=== PATIENT | female | born 1940 | race Caucasian/White ===

== ENCOUNTER 2019-08-19 13:09 | Emergency (ER) | payer MEDICARE ==
[~2019-08-19] VITALS: Ht 154.9 cm; Wt 65.0 kg
[2019-08-19] MEDS ORDERED: TETANUS,DIPTH,PERTUSS P/F (BOOSTRIX) 0.5 ML VIAL IM ONE ×2 (13:30→14:15)
[2019-08-19] MEDS ORDERED: ACETAMINOPHEN 500 MG TAB (TYLENOL) PO ONE (13:30)
--- NOTE | 2019-08-19 13:30 | ED General ---
General Chief Complaint: Trauma-Non Activation Stated Complaint: FALL History of Present Illness Date Seen by Provider: August 19, 2019 Time Seen by Provider: 13:26 Initial Comments Patient presenting to emergency department for evaluation of head trauma after she stubbed her toe in [employer] and fell straight forward landing on her face. She has a contusion to her left forehead region and there was bleeding from the wound however it has now stopped. She says she has a mild headache but denies any neck chest abdomen back or other extremity trauma or pain. On exam it does appear she has a small abrasion to her left knee but she is moving the joint with no difficulty. She says she takes a aspirin daily and bruises easily. She says she is allergic to the tetanus vaccine. Allergies and Home Medications Allergies Coded Allergies: allopurinol (Unverified Allergy, Unknown, 12/14/13) Uncoded Allergies: HORSE SERUM (Allergy, Unknown, 12/14/13) Patient Home Medication List Home Medication List Reviewed: Yes Review of Systems Review of Systems Constitutional: no symptoms reported EENTM: no symptoms reported Respiratory: no symptoms reported Cardiovascular: no symptoms reported Gastrointestinal: no symptoms reported Musculoskeletal: no symptoms reported Skin: other (bruise) Psychiatric/Neurological: Headache All Other Systems Reviewed Negative Unless Noted: Yes Physical Exam Vital Signs Capillary Refill : Height, Weight, BMI Height: 5'2.00" Weight: 150lbs. oz. [id number]; BMI Method: General Appearance: No Apparent Distress, WD/WN HEENT: PERRL/EOMI Neck: Full Range of Motion, Normal Inspection, Non Tender, Supple Respiratory: Lungs Clear, No Respiratory Distress Cardiovascular: Regular Rate, Rhythm Gastrointestinal: Non Tender, Soft Back: Normal Inspection, No CVA Tenderness, No Vertebral Tenderness Extremity: Normal Capillary Refill, Normal Inspection, Normal Range of Motion, Non Tender Neurologic/Psychiatric: Alert, Oriented x3 Skin: Ecchymosis (to L forehead and periorbital region. No open wounds) Progress/Results/Core Measures Suspected Sepsis SIRS Temperature: Pulse: Respiratory Rate: Blood Pressure / Mean: Results/Orders My Orders Orders - FRANCISCO SOARES DO Ct Head Wo (08/19/19 13:16) Acetaminophen Tablet (Tylenol Tablet) (08/19/19 13:30) Foot 3 View Right (08/19/19 13:41) Ankle 3 View Right (08/19/19 13:42) Dipht,Pertuss(Acell),Tet Adult (Boostrix (08/19/19 14:15) Medications Given in ED Current Medications Medications Dose Ordered Sig/Mario Route Start Time Stop Time Status Last Admin Dose Admin Acetaminophen 1,000 mg ONCE ONCE PO 08/19/19 13:30 08/19/19 13:31 DC 08/19/19 13:40 1,000 MG Vital Signs/I&O Capillary Refill : Progress Note : Progress Note Patient appears well and has normal vital signs and may have had a small puncture wound to her left forehead. I will go ahead and put some glue on the area that was bleeding just to make sure does not start bleeding again. Patient's head CT negative and her repeat neurologic exam is normal so she'll be discharged in stable condition with instructions to take Tylenol for pain. When she was told to follow primary care provider within 2-3 days to ensure improvement and come back to the ED sooner with worsening pain neurologic changes other general concerns. Patient aware and agreeable with plan and verbalized understanding of the above instructions. Have not when patient stood up she said she had pain in her right fifth metatarsal region. I did get some x-rays and she has a nondisplaced fifth metata rsal fracture so she was put in a cam boot and will be instructed to follow with orthopedic surgery. Patient verbalized understanding. Patient said that she is not allergic to tetanus and is requesting a tetanus so we did provided to her. Departure Impression Primary Impression: Abrasion Additional Impressions: CHI (closed head injury) Fracture of 5th metatarsal Disposition: 01 HOME, SELF-CARE Condition: Stable Departure-Patient Inst. Referrals: NO,LOCAL PHYSICIAN (PCP/Family) Primary Care Physician Patient Instructions: Foot Fracture (DC), Minor Head Injury (DC) Scripts Ondansetron (Ondansetron Odt) 4 Mg Tab.rapdis 4 MG PO TID PRN for NAUSEA/VOMITING-1ST LINE, #10 TAB Prov: FRANCISCO SOARES DO 08/19/19 Hydrocodone/Acetaminophen (Hydrocodone-Acetamin 5-325 mg) 1 Each Tablet 1 EACH PO qhs PRN for PAIN-SEVERE (8-10), #10 TAB Prov: FRANCISCO SOARES DO 08/19/19 FRANCISCO SOARES DO August 19, 2019 13:30
--- NOTE | 2019-08-19 13:41 | Diagnostic Imaging Report ---
PROCEDURE: CT head without contrast. TECHNIQUE: Multiple contiguous axial images were obtained through the brain without the use of intravenous contrast. Auto Exposure Controls were utilized during the CT exam to meet ALARA standards for radiation dose reduction. INDICATION: Fall with head injury. COMPARISON: None. FINDINGS: The ventricles and cortical sulci are prominent. There is no midline shift or mass effect identified. No acute intracranial hemorrhage is seen. Areas of decreased attenuation are seen in the subcortical and periventricular white matter. These likely represent chronic microvascular disease. No CT evidence of acute territorial ischemia is seen. There is a left frontal scalp hematoma measuring approximately 3 cm transverse. The calvarium is intact. The paranasal sinuses appear clear. IMPRESSION: 1. Small left frontal scalp hematoma. No calvarium fracture or acute intracranial hemorrhage. Dictated by: Dictated on workstation # [id number]
--- NOTE | 2019-08-19 14:00 | Diagnostic Imaging Report ---
INDICATION: Fall with right ankle pain. AP, oblique, and lateral views of the right ankle are obtained. There is degenerative change of the ankle joint both medially and laterally. There is a fracture of the base of the fifth metatarsal without displacement. No other acute finding is seen. IMPRESSION: Degenerative findings of the right ankle. Nondisplaced fracture of the base of the fifth metatarsal, see right foot dictation. Dictated by: Dictated on workstation # [id number]
--- NOTE | 2019-08-19 14:01 | Diagnostic Imaging Report ---
INDICATION: Fall with right foot pain. EXAMINATION: AP, oblique, and lateral views of the right foot are obtained. FINDINGS: There is ill-defined lucency at base of fifth metatarsal suspicious for nondisplaced fracture. Remaining bony structures are intact. Joint spaces are unremarkable. IMPRESSION: Findings suspicious for nondisplaced fracture of the base of the fifth metatarsal. Correlate for point tenderness in this area. There is no other acute finding. Dictated by: Dictated on workstation # [id number]
[2019-08-19] MEDS ORDERED: HYDR-83 PO (14:20)
[2019-08-19] MEDS ORDERED: ONDA4TAB11 PO (14:20)
[2019-08-19 14:45] VITALS: BP 134/61
--- OUTSIDE RECORDS SUMMARY | 2019-08-19 15:58 | XMS REPORT ---
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 No Information No Information No Information No Information No Information No Information Medications Medication Ingredient Drug Dose Dates Status Sig Sig Care Class(es) (Normalized) (Original) Provid er dicyclomine Dicyclomine Anticholine 20 mg 06-25-19 Active take 1 Dicyclomine no hydrochlori Translation rgic 18 tablet by HCl 20 MG n marci de 20 mg s: [ mouth four Orally 4 oral tablet Dicyclomine times daily times a day (1 source.) HCl 20 MG] 1 tablet 6h May, 30 days Active Problems Active Problems Problem Normalized Date Last Normalized Normalized Provider Fa cility Classification Problem(s) Recorded Problem Problem Sta tus Duration Thyroid Acquired Chronic Active [facility] Community disorders (8 hypothyroidism 18137 [facility] sources[facility] Translations: of [place] [ Acquired [place] ([address]015) hypothyroidism , - Acquired hypothyroidism E03.9] Spondylosis; Acute back Episodic Active [employer] Commu nity intervertebral pain with [address] [facility] disc sciatica of [facility] disorders; Translations: [place] (32658) other back [ Acute problems (11 left-sided low sources.) back pain with left-sided sciatica, Sciatica of right side, - Acute left-sided low back pain with left-sided sciatica M54.42, - Sciatica of right side M54.31, - Spinal 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] Other and Benign Episodic Active MODESTA SELF [place] [address] (Other Health Center benign colon, Phone: of [facility] neoplasm (1 unspecified ) [place] (39173) source.) Translations: [ - Tubular adenoma of colon D12.6] Chronic kidney Chronic kidney Chronic Active MODESTA SELF Community disease (5 disease stage 62992 [facility] Center sources.) 4 of [facility] Translations: [place] (99876) [ CKD (chronic kidney disease) stage 4, GFR 15-29 ml/min, - CKD (chronic kidney disease) stage 4, GFR 15-29 ml/min N18.4] Other diseases Disorder of Episodic Active MODESTA SELF Co mmunity of kidney and kidney and [facility] (Other Health Center ureters (1 ureter, Phone: of [facility] source.) unspecified ) [place] (55539) Translations: [ - Renal insufficiency N28.9] Other lower Dyspnea, Episodic Active MODESTA SELF Communit y respiratory unspecified [facility] (Other Health Center disease (1 Translations: Phone: of [facility] source.) [ - Nocturnal ) [place] (03821 ) dyspnea R06.00] Immunizations Encounter for Episodic Active MODESTA SELF C ommunity and screening immunization [address] [place] [address] for infectious Translations: of [facility] disease (2 [ - Encounter [place] (65924) sources.) for immunization Z23] Other Encounter for Episodic Active MODESTA SELF Commu nity screening for screening [address] [place] [address] suspected mammogram for of [facility] conditions malignant [place] (33689) (not mental neoplasm of disorders or breast infectious Translations: disease) (2 [ - Screening sources.) mammogram, encounter for Z12.31] Esophageal Gastro-esophag Chronic Active MODESTA SELF Com munity disorders (3 eal reflux 57252 [facility] sources.) disease with of [facility] esophagitis [place] (66223) Translations: [ Gastroesophage al reflux disease with esophagitis, - Gastroesophage al reflux disease with esophagitis K21.0] Gastritis and Gastroduodenit Episodic Active MODESTA SELF Community duodenitis (3 is [address]509 Health Center sources.) Translations: [place] [ Gastritis [place] (20108) and duodenitis, - Gastritis and duodenitis K29.90] Abdominal Hiatal hernia Episodic Active MODESTA SELF Commu nity hernia (3 Translations: [facility]59 [facility] sources.) [ Hiatal of [facility] hernia, - [place] (36172) Hiatal hernia K44.9] Diabetes Hyperglycemia Episodic Active MODESTA SELF Commu nity mellitus Translations: [id number] [place] [address] without [ of [facility] complication Hyperglycemia, [place] (32441) (17 sources.) - Hyperglycemia R73.9, - Hyperglycemia, unspecified R73.9, - Prediabetes R73.03] Essential Hypertensive Chronic Active [facility] SELF Commun ity hypertension disorder [address] [place] [address] (7 sources.) Translations: of [facility] [ [place] (34275) Hypertension, Essential hypertension, - Essential hypertension I10, - Hypertension I10] Deficiency and Iron Episodic Active MODESTA SELF Commu nity other anemia deficiency [address] [place] [address] (7 sources.) anemia, of [facility] unspecified [place] (75742) Translations: [ - Iron deficiency anemia D50.9] Disorders of Mixed Chronic Active MODESTA SELF Communi ty lipid hyperlipidemia [address] [place] [address] metabolism (13 Translations: of [facility] sources.) [ Mixed [place] (44941) hyperlipidemia , - Mixed hyperlipidemia E78.2] Other Morbid Chronic Active MODESTA SELF Community nutritional; (severe) 35089 (Other Health Center endocrine; and obesity due to Phone: of [facility] metabolic excess ) [place] (44701) disorders (1 calories source.) Translations: [ - Morbid obesity E66.01] Other Morbid obesity Chronic Active MODESTA SELF Comm unity nutritional; Translations: [address] [place] [address] endocrine; and [ Morbid of [facility] metabolic obesity] [place] (14246) disorders (2 sources.) Osteoarthritis Osteoarthritis Chronic Active MODESTA SELF Community (3 sources.) Translations: [address] [place] [address] [ DA of [facility] (degenerative [place] (69252) arthritis), - DA (degenerative arthritis) M19.90] Other Pain in right Episodic Active MODESTA SELF Commu nity non-traumatic hip [address] [place] [address] Center joint Translations: of [facility] disorders (2 [ - Right hip [place] (77128) sources.) pain M25.551] Nutritional Vitamin D Chronic Active MODESTA SELF Communi ty deficiencies deficiency [address] [place] [address] (7 sources.) Translations: of [facility] [ Vitamin D [place] (03921) deficiency, - Vitamin D deficiency, unspecified E55.9, - Vitamin D deficiency E55.9] Past or Other Problems Problem Normalized Date Last Normalized Normalized Provider Fa cility Classification Problem(s) Recorded Problem Problem Sta tus Duration Deficiency and Iron Episodic [facility] n[facility] other anemia deficiency [address] [place] [address] (2 sources.) anemia of [facility] Translations: [place] (88909) [ Iron deficiency anemia] Other nervous Neurogenic Episodic Completed MODESTA SELF Comm tyndall system claudication [address] [place] [address] disorders (2 Translations: of [facility] sources.) [ Spinal [place] (83276) stenosis of lumbar region with neurogenic claudication] Other lower Nocturnal Episodic Completed MODESTA SELF Communi ty respiratory dyspnea [address] [place] [address] disease (2 Translations: of [facility] sources.) [ Nocturnal [place] (88332) dyspnea] Other diseases Renal Episodic Com[facility] of kidney and insufficiency [address] [place] [address] ureters (2 Translations: of [facility] sources.) [ Renal [place] (83575) insufficiency] Other and Tubular Episodic Completed [facility] unspecified adenoma of [address] [place] [address] benign colon of [facility] neoplasm (2 Translations: [place] (12175) sources.) [ Tubular adenoma of colon] Procedures Procedure Normalized Procedure Procedure Result Performer Facility Date 07-01-2018 Collection venous no information no name [facility] blood venipuncture [facility] (34882) 07-01-2018 Hemoglobin no information no name [facility] ealth glycosylated a1c [facility] (82492) 07-01-2018 LAB NOT BILLED BY no information no name [facility] (51202) 02-06-2019 Mammography no information [facility] (73713) Immunizations Normalized Immunization Date Notes Care Provider Facili ty Immunization influenza, seasonal, 01-22-2019 no information no name [facility] injectable [facility] (46226) pneumococcal 04-12-2015 no information no name [facility] conjugate vaccine, [address] ([address]) pneumococcal 06-21-2016 no information no name [facility] polysaccharide [facility], [facility] SOLUMEDROL (UP TO 10-07-2018 no information no name [facility] 125 MG) [facility] (03925) tetanus toxoid, 08-19-2019 no information no name [facility] toxoid, and (57894) acellular pertussis vaccine, adsorbed Results Test Name Value Interpretation Reference Range Date Time Fa cility (Normalized) (Normalized) (Medline Reference) laboratory on 2019-07-21 Albumin 4.3 g/dL (N) 3.4 - 5.4 g/dL [facility] [Mass/Vol] [facility] (86359) Albumin/Globulin 1.7 {ratio} (N) 1 - 2.5 {ratio} [facility] [Mass ratio] [facility] (86739) ALP [Catalytic 52 U/L (N) 44 - 147 U/L [facility] Health activity/Vol] [facility] (64094) ALT [Catalytic 21 U/L (N) 4 - 40 U/L Community ealth activity/Vol] [facility] (10130) AST [Catalytic 18 U/L (N) 10 - 34 U/L [facility] Health activity/Vol] [facility] (39395) Basophils (Bld) 0.052 10*3/uL (N) 0 - 0.3 10*3/uL [facility] Health [#/Vol] [facility] (80059) Basophils/100 0.9 % (N) 0.5 - 1 % Community alth WBC (Bld) [facility] (23876) Bilirubin 0.4 mg/dL (N) 0.1 - 1.2 mg/dL [facility] Health [Mass/Vol] [facility] (45097) Calcium 9.5 mg/dL (N) 8.5 - 10.2 mg/dL [facility] [Mass/Vol] [facility] (21222) Chloride 108 mmol/L (N) 95 - 106 mmol/L [facility] [Moles/Vol] [facility] (84837) CO2 [Moles/Vol] 23 mmol/L (N) 23 - 29 mmol/L [facility] (46387) Creatinine 1.65 mg/dL (H) [facility] h [Mass/Vol] [facility] (91021) Eosinophils 0.11 10*3/uL (N) 0.05 - 0.5 [facility] lth (Bld) [#/Vol] 10*3/uL [facility] (50533) Eosinophils/100 1.9 % (N) 1 - 4 % [facility] WBC (Bld) [facility] (65133) Erythrocyte 13.5 % (N) 11.6 - 14.6 % [facility] ealth distribution [facility] width (RBC) [facility] [Ratio] (28733) Free T4 1.4 ng/dL (N) 0.9 - 2.2 ng/dL [facility] [Mass/Vol] [facility] (19318) GFR/1.73 sq M 34 (L) 90 - 120 On license of [facility] predicted among mL/min/{1.73_m2} mL/min/{1.73_m2} [facility] f [facility] blacks MDRD [facility] (S/P/Bld) [Vol (88181) rate/Area] GFR/1.73 sq 29 (L) 90 - 120 [facility] th M.predicted MDRD mL/min/{1.73_m2} mL/min/{1.73_m2} [facility] (S/P/Bld) [Vol [facility] rate/Area] (92591) Globulin (S) 2.5 g/dL (N) 2 - 3.5 g/dL [facility] ealt [Mass/Vol] [facility] (04595) Glucose 110 mg/dL (H) 60 - 125 mg/dL [facility] [Mass/Vol] [facility] (88875) Hematocrit (Bld) 47.6 % (H) 36.1 - 50.3 % [facility] [Volume [facility]] [facility] (33448) Hemoglobin (Bld) 15.4 g/dL (N) 12.1 - 17.2 g/dL [facility] [Mass/Vol] [facility] (27403) Lymphocytes 1.38 10*3/uL (N) 0.9 - 2.9 [facility] lth (Bld) [#/Vol] 10*3/uL [facility] (96508) Lymphocytes/100 23.8 % (N) 20 - 40 % [facility] WBC (Bld) [facility] (25298) MCH (RBC) 30.9 pg (N) 27 - 31 pg [facility] [Entitic mass] [facility] (17930) MCHC (RBC) 32.4 g/dL (N) 32 - 36 g/dL [facility] He [facility] [Mass/Vol] [facility] (86651) MCV (RBC) 95.4 fL (N) 80 - 100 fL [facility] lt [Entitic vol] [facility] (68040) Monocytes (Bld) 0.615 10*3/uL (N) 0.3 - 0.9 [facility] [#/Vol] 10*3/uL [facility] (57280) Monocytes/100 10.6 % (N) 2 - 8 % On license of [facility] WBC (Bld) [facility] (16614) Neutrophils 3.642 10*3/uL (N) 1.7 - 7 10*3/uL [facility] (Bld) [#/Vol] [facility] (01764) Neutrophils/100 62.8 % (N) 40 - 60 % [facility] WBC (Bld) [facility] (21522) Platelet mean 11.6 fL (N) 7.2 - 11.7 fL [facility] Health volume (Bld) [facility] [Entitic vol] [facility] (32298) Platelets (Bld) 212 10*3/uL (N) 150 - 450 [facility] Health [#/Vol] 10*3/uL [facility] (49008) Potassium 3.7 mmol/L (N) 3.7 - 5.2 mmol/L [facility] [Moles/Vol] [facility] (28946) Protein 6.8 g/dL (N) 6.4 - 8.3 g/dL [facility] Health [Mass/Vol] [facility] () RBC (Bld) 4.99 10*6/uL (N) 4.2 - 6.1 Community Hea lth [#/Vol] 10*6/uL [facility] () Sodium 144 mmol/L (N) 135 - 145 mmol/L [facility] [Moles/Vol] [facility] () TSH Qn 4.55 m[IU]/L (H) 0.4 - 4 m[IU]/L [facility] () Urea nitrogen 26 mg/dL (H) 7 - 20 mg/dL [facility] [Mass/Vol] [facility] () Urea 16 mg/mg (N) 6 - 22 mg/mg [facility] He alth nitrogen/Creatin [facility] [Mass ratio] [facility] () WBC (Bld) 5.8 10*3/uL (N) 3.5 - 10.5 [facility] Heal th [#/Vol] 10*3/uL [facility] () laboratory on 2019-01-19 Albumin 4.3 g/dL (N) 3.4 - 5.4 g/dL [facility] [Mass/Vol] [facility] () Albumin/Globulin 1.7 {ratio} (N) 1 - 2.5 {ratio} [facility] [Mass ratio] [facility] () ALP [Catalytic 49 U/L (N) 44 - 147 U/L [facility] Health activity/Vol] [facility] () ALT [Catalytic 22 U/L (N) 4 - 40 U/L Community ealth activity/Vol] [facility] () AST [Catalytic 21 U/L (N) 10 - 34 U/L [facility] Health activity/Vol] [facility] () Basophils (Bld) 0.051 10*3/uL (N) 0 - 0.3 10*3/uL [facility] [#/Vol] [facility] (10673) Basophils/100 1.1 % (N) 0.5 - 1 % [facility] He alth WBC (Bld) [facility] (20807) Bilirubin 0.5 mg/dL (N) 0.1 - 1.2 mg/dL [facility] [Mass/Vol] [facility] (27181) Calcium 9.1 mg/dL (N) 8.5 - 10.2 mg/dL [facility] [Mass/Vol] [facility] (38519) Chloride 109 mmol/L (N) 95 - 106 mmol/L [facility] [Moles/Vol] [facility] (49363) Cholesterol 229 mg/dL (H) 180 - 200 mg/dL [facility] [Mass/Vol] [facility] (95267) Cholesterol in 62 mg/dL (N) [facility] h HDL [Mass/Vol] [facility] (93010) Cholesterol in 143 mg/dL (H) 0 - 100 mg/dL [facility] LDL [Mass/Vol] [facility] (89144) Cholesterol non 167 mg/dL (H) [facility] HDL [Mass/Vol] [facility] (43955) Cholesterol.tota 3.7 {ratio} (N) [facility] Hea lt l/Cholesterol in [facility] HDL [Mass ratio] [facility] (30995) CO2 [Moles/Vol] 21 mmol/L (N) 23 - 29 mmol/L [facility] (17357) Creatinine 1.75 mg/dL (H) [facility] h [Mass/Vol] [facility] (87462) Eosinophils 0.101 10*3/uL (N) 0.05 - 0.5 Community He alth (Bld) [#/Vol] 10*3/uL [facility] (85081) Eosinophils/100 2.2 % (N) 1 - 4 % [facility] WBC (Bld) [facility] (54422) Erythrocyte 13.3 % (N) 11.6 - 14.6 % Community H ealth distribution [facility] width (RBC) [facility] [Ratio] (14853) GFR/1.73 sq M 32 (L) 90 - 120 Community He alth predicted among mL/min/{1.73_m2} mL/min/{1.73_m2} [facility] [place] MDRD [facility] (S/P/Bld) [Vol (73454) rate/Area] GFR/1.73 sq 27 (L) 90 - 120 Community Heal th M.predicted MDRD mL/min/{1.73_m2} mL/min/{1.73_m2} [facility] (S/P/Bld) [Vol [facility] rate/Area] (27971) Globulin (S) 2.6 g/dL (N) 2 - 3.5 g/dL [facility] ealth [Mass/Vol] [facility] (41517) Glucose 98 mg/dL (N) 60 - 125 mg/dL [facility] [Mass/Vol] [facility] (54561) HbA1c (Bld) 5.6 (N) [facility] h [Mass fraction] [facility] (83280) Hematocrit (Bld) 45.8 % (H) 36.1 - 50.3 % [facility] [Volume [place] [facility] fraction] [facility] (01447) Hemoglobin (Bld) 15.3 g/dL (N) 12.1 - 17.2 g/dL [facility] [Mass/Vol] [facility] (99027) Lymphocytes 1.113 10*3/uL (N) 0.9 - 2.9 [facility] alth (Bld) [#/Vol] 10*3/uL [facility] (42744) Lymphocytes/100 24.2 % (N) 20 - 40 % [facility] WBC (Bld) [facility] (35589) MCH (RBC) 31.4 pg (N) 27 - 31 pg [facility] th [Entitic mass] [facility] (90713) MCHC (RBC) 33.4 g/dL (N) 32 - 36 g/dL [facility] He alth [Mass/Vol] [facility] (96711) MCV (RBC) 94.0 fL (N) 80 - 100 fL [facility] l[facility] [Entitic vol] [facility] (23650) Monocytes (Bld) 0.534 10*3/uL (N) 0.3 - 0.9 [facility] Health [#/Vol] 10*3/uL [facility] (24468) Monocytes/100 11.6 % (N) 2 - 8 % Community alth WBC (Bld) [facility] (96296) Neutrophils 2.801 10*3/uL (N) 1.7 - 7 10*3/uL [facility] Health (Bld) [#/Vol] [facility] (89334) Neutrophils/100 60.9 % (N) 40 - 60 % [facility] WBC (Bld) [facility] (67772) Platelet mean 11.2 fL (N) 7.2 - 11.7 fL [facility] volume (Bld) [facility] [Entitic vol] [facility] (81752) Platelets (Bld) 200 10*3/uL (N) 150 - 450 [facility] [#/Vol] 10*3/uL [facility] (99168) Potassium 3.9 mmol/L (N) 3.7 - 5.2 mmol/L [facility] [Moles/Vol] [facility] (30144) Protein 6.9 g/dL (N) 6.4 - 8.3 g/dL [facility] [Mass/Vol] [facility] (25368) RBC (Bld) 4.87 10*6/uL (N) 4.2 - 6.1 [facility] lth [#/Vol] 10*6/uL [facility] (78427) Sodium 143 mmol/L (N) 135 - 145 mmol/L [facility] [Moles/Vol] [facility] (90710) Triglyceride 119 mg/dL (N) 0 - 150 mg/dL [facility] [Mass/Vol] [facility] (40286) Urea nitrogen 28 mg/dL (H) 7 - 20 mg/dL [facility] [Mass/Vol] [facility] (93544) Urea 16 mg/mg (N) 6 - 22 mg/mg Community He alth nitrogen/Creatin [facility] ine [Mass ratio] [facility] (94684) WBC (Bld) 4.6 10*3/uL (N) 3.5 - 10.5 [facility] [#/Vol] 10*3/uL [facility] (92435) thyroid on 2018-07-01 Free T4 1.3 ng/dL (N) 0.9 - 2.2 ng/dL [facility] [Mass/Vol] [facility] (56199) TSH Qn 4.43 m[IU]/L (N) 0.4 - 4 m[IU]/L [facility] (78291) other on 2018-07-01 Albumin/Globulin 1.5 (N) [facility] [Mass ratio] [facility] (49288) Calcidiol 0 ng/mL (no code) 20 - 50 ng/mL [facility] [Mass/Vol] [facility] (13284) Cholesterol in 161 (H) [facility] LDL [Mass/Vol] [facility] (13478) Cholesterol non 185 (H) [facility] HDL [Mass/Vol] [facility] (93112) Cholesterol.tota 3.8 (N) [facility] l/Cholesterol in [facility] HDL [Mass ratio] [facility] (28464) Erythrocyte 13.0 % (N) 11.6 - 14.6 % [facility] ealth distribution [facility] width (RBC) [facility] [Ratio] (31330) GFR/1.73 sq 28 (L) 90 - 120 [facility] M.predicted MDRD mL/min/{1.73_m2} mL/min/{1.73_m2} [facility] (S/P/Bld) [Vol [facility] rate/Area] (84037) Globulin (S) 3.1 (N) [facility] [Mass/Vol] [facility] (41036) Lymphocytes 1750 (N) [facility] (Bld) [#/Vol] [facility] (71817) MCHC (RBC) 33.8 g/dL (N) 32 - 36 g/dL Community He alth [Mass/Vol] [facility] (39985) Platelet mean 11.4 fL (N) 7.2 - 11.7 fL [facility] Health volume (Bld) [facility] [Entitic vol] [facility] (81297) metabolic panel on 2018-07-01 Albumin 4.5 g/dL (N) 3.4 - 5.4 g/dL [facility] Health [Mass/Vol] [facility] (87197) ALP [Catalytic 48 U/L (N) 44 - 147 U/L [facility] Health activity/Vol] [facility] (77175) ALT [Catalytic 22 U/L (N) 4 - 40 U/L Community H ealth activity/Vol] [facility] (63327) AST [Catalytic 26 U/L (N) 10 - 34 U/L [facility] Health activity/Vol] [facility] (42480) Bilirubin 0.4 mg/dL (N) 0.1 - 1.2 mg/dL [facility] [Mass/Vol] [facility] (04757) Calcium 9.5 mg/dL (N) 8.5 - 10.2 mg/dL [facility] [Mass/Vol] [facility] (08652) Chloride 107 mmol/L (N) 95 - 106 mmol/L [facility] [Moles/Vol] [facility] (46665) CO2 [Moles/Vol] 25 mmol/L (N) 23 - 29 mmol/L [facility] ity [facility] ([id number]) Creatinine 1.71 mg/dL (H) [facility] [Mass/Vol] [facility] (26326) GFR/1.73 sq M 33 (L) 90 - 120 [facility] He alth predicted among mL/min/{1.73_m2} mL/min/{1.73_m2} [facility] [place] MDRD [facility] (S/P/Bld) [Vol ([id number]) rate/Area] Glucose 110 mg/dL (H) 60 - 125 mg/dL [facility] [Mass/Vol] [facility] (75212) HbA1c (Bld) 5.7 (H) [facility] [Mass fraction] [facility] (04330) Potassium 4.4 mmol/L (N) 3.7 - 5.2 mmol/L [facility] [Moles/Vol] [facility] (29335) Protein 7.6 g/dL (N) 6.4 - 8.3 g/dL [facility] [Mass/Vol] [facility] (26507) Sodium 141 mmol/L (N) 135 - 145 mmol/L [facility] [Moles/Vol] [facility] (59260) Urea nitrogen 22 mg/dL (N) 7 - 20 mg/dL [facility] [Mass/Vol] [facility] () Urea 13 mg/mg (N) 6 - 22 mg/mg Community [facility] alth nitrogen/Creatin [facility] [Mass ratio] [facility] () laboratory on 2018-07-01 Basophils (Bld) 0.05 10*3/uL (N) 0 - 0.3 10*3/uL [facility] [#/Vol] [facility] (21095) Basophils/100 1.0 % (N) 0.5 - 1 % [facility] WBC (Bld) [facility] (64540) Calcidiol 47 ng/mL (N) 20 - 50 ng/mL [facility] ealth [Mass/Vol] [facility] (35460) Cholesterol in 161 mg/dL (H) 0 - 100 mg/dL [facility] LDL [Mass/Vol] [facility] (67777) Eosinophils 0.155 10*3/uL (N) 0.05 - 0.5 [facility]th (Bld) [#/Vol] 10*3/uL [facility] (69128) Eosinophils/100 3.1 % (N) 1 - 4 % [facility] WBC (Bld) [facility] (57890) Free T4 1.3 ng/dL (N) 0.9 - 2.2 ng/dL [facility] [Mass/Vol] [facility] () Globulin (S) 3.1 g/dL (N) 2 - 3.5 g/dL [facility]alth [Mass/Vol] [facility] (74932) HbA1c (Bld) 5.7 (H) [facility] [Mass fraction] [facility] (62327) Hematocrit (Bld) 46.4 % (H) 36.1 - 50.3 % [facility]] [facility] (90513) Lymphocytes 1.75 10*3/uL (N) 0.9 - 2.9 [facility] Hea lth (Bld) [#/Vol] 10*3/uL [facility] (24866) Lymphocytes/100 35.0 % (N) 20 - 40 % [facility] WBC (Bld) [facility] (19730) Monocytes (Bld) 0.62 10*3/uL (N) 0.3 - 0.9 [facility] [#/Vol] 10*3/uL [facility] (69887) Monocytes/100 12.4 % (N) 2 - 8 % [facility] alth WBC (Bld) [facility] (72883) Neutrophils 2.425 10*3/uL (N) 1.7 - 7 10*3/uL [facility] Health (Bld) [#/Vol] [facility] (95878) Neutrophils/100 48.5 % (N) 40 - 60 % [facility] WBC (Bld) [facility] (83916) Platelets (Bld) 203 10*3/uL (N) 150 - 450 [facility] [#/Vol] 10*3/uL [facility] (09897) RBC (Bld) 5.05 10*6/uL (N) 4.2 - 6.1 [facility] [#/Vol] 10*6/uL [facility] (74532) TSH Qn 4.43 m[IU]/L (N) 0.4 - 4 m[IU]/L [facility] (22841) WBC (Bld) 5.0 10*3/uL (N) 3.5 - 10.5 [facility] [#/Vol] 10*3/uL [facility] (49483) hematology on 2018-07-01 Basophils (Bld) 0.05 10*3/uL (N) 0 - 0.3 10*3/uL [facility] [#/Vol] [facility] (79708) Basophils/100 1.0 % (N) 0.5 - 1 % [facility] WBC (Bld) [facility] (13615) Eosinophils 0.155 10*3/uL (N) 0.05 - 0.5 [facility] alth (Bld) [#/Vol] 10*3/uL [facility] (18818) Eosinophils/100 3.1 % (N) 1 - 4 % [facility] WBC (Bld) [facility] (11601) Hematocrit (Bld) 46.4 % (H) 36.1 - 50.3 % [facility] [Volume Center [facility] (75065) Hemoglobin (Bld) 15.7 g/dL (H) 12.1 - 17.2 g/dL [facility] [Mass/Vol] [facility] (01133) Lymphocytes/100 35.0 % (N) 20 - 40 % [facility] WBC (Bld) [facility] (37830) MCH (RBC) 31.1 pg (N) 27 - 31 pg [facility]al [facility] [Entitic mass] [facility] (23495) MCV (RBC) 91.9 fL (N) 80 - 100 fL [facility] [Entitic vol] [facility] (45698) Monocytes (Bld) 0.62 10*3/uL (N) 0.3 - 0.9 [facility] [#/Vol] 10*3/uL [facility] (12328) Monocytes/100 12.4 % (N) 2 - 8 % [facility] alth WBC (Bld) [facility] (64824) Morphology [place] no information (N) [facility] [Interp] [facility] (28887) Neutrophils 2.425 10*3/uL (N) 1.7 - 7 10*3/uL [facility] (Bld) [#/Vol] [facility] (43518) Neutrophils/100 48.5 % (N) 40 - 60 % [facility] Health WBC (Bld) [facility] (89523) Platelets (Bld) 203 10*3/uL (N) 150 - 450 [facility] Health [#/Vol] 10*3/uL [facility] (41445) Platelets LM Ql ADEQUATE (N) [facility] th (Bld) [facility] (16642) RBC (Bld) 5.05 10*6/uL (N) 4.2 - 6.1 [facility] [#/Vol] 10*6/uL [facility] (07291) WBC (Bld) 5.0 10*3/uL (N) 3.5 - 10.5 [facility] [#/Vol] 10*3/uL [facility] (09126) cardiac on 2018-07-01 Cholesterol 251 mg/dL (H) 180 - 200 mg/dL [facility] [Mass/Vol] [facility] (92828) Cholesterol in 66 mg/dL (N) [facility] HDL [Mass/Vol] [facility] (23674) Triglyceride 120 mg/dL (N) 0 - 150 mg/dL [facility] [Mass/Vol] [facility] (87388) Vital Signs The data below is from unstructured sources Vital Response Date/Time Temperature (Fahrenheit) 97.1 degree s F (97.6 - 99.5) Temperature (Calculated Celsius) 36. 96926 degrees C (36.4 - 37.5) Temperature Source Tympanic Pulse Rate (adult) 77 bpm (60 - 90) Respiratory Rate 20 bpm (12 - 24) O2 Sat by Pulse Oximetry 98 % (88 - 100) Blood Pressure 115/88 mm Hg Blood Pressure Mean 96 mm Hg Pain Pain Intensity 0 Height (Feet) 5 feet Height (Inches) 2.00 inches Height (Calculated Centimeters) 157. 117298 cm Weight (Pounds) 150 pounds Weight (Calculated Grams) 73115.856 gm Weight (Calculated Kilograms) 68.038 856 kilograms Calculated BMI 27.43 Vital Response Date/Time Temperature (Fahrenheit) 98.3 degree s F (97.6 - 99.5) Temperature (Calculated Celsius) 36. 74280 degrees C (36.4 - 37.5) Temperature Source Tympanic Pulse Rate (adult) 66 bpm (60 - 90) Respiratory Rate 18 bpm (12 - 24) O2 Sat by Pulse Oximetry 94 % (88 - 100) Blood Pressure 142/76 mm Hg Pain Pain Intensity 2 Height (Feet) 5 feet Height (Inches) 2.00 inches Height (Calculated Centimeters) 157. 476298 cm Weight (Pounds) 157 pounds Weight (Calculated Grams) 99304.003 gm Weight (Calculated Kilograms) 71.214 003 kilograms Calculated BMI 28.71 Vital Response Date/Time Temperature (Fahrenheit) 97.0 degree s F (97.6 - 99.5) Temperature (Calculated Celsius) 36. 50327 degrees C (36.4 - 37.5) Temperature Source Tympanic Pulse Rate (adult) 82 bpm (60 - 90) Respiratory Rate 18 bpm (12 - 24) O2 Sat by Pulse Oximetry 96 % (88 - 100) Blood Pressure 134/83 mm Hg Pain Pain Intensity 2 Height (Feet) 5 feet Height (Inches) 2.00 inches Height (Calculated Centimeters) 157. 763754 cm Weight (Pounds) 150 pounds Weight (Calculated Grams) 86755.856 gm Weight (Calculated Kilograms) 68.038 856 kilograms Calculated BMI 27.43 Vital Response Date/Time Temperature (Fahrenheit) 97.1 degree s F (97.6 - 99.5) Temperature (Calculated Celsius) 36. 27277 degrees C (36.4 - 37.5) Temperature Source Tympanic Pulse Rate (adult) 69 bpm (60 - 90) Respiratory Rate 14 bpm (12 - 24) O2 Sat by Pulse Oximetry 96 % (88 - 100) Blood Pressure 166/83 mm Hg Pain Pain Intensity 0 Height (Feet) 5 feet Height (Inches) 1.00 inches Height (Calculated Centimeters) 154. 513937 cm Weight (Pounds) 159 pounds Weight (Calculated Grams) 02971.188 gm Weight (Calculated Kilograms) 72.121 188 kilograms Calculated BMI 30.04 Vital Response Date/Time Temperature (Fahrenheit) 96.9 degree s F (97.6 - 99.5) Temperature (Calculated Celsius) 36. 58162 degrees C (36.4 - 37.5) Temperature Source Tympanic Pulse Rate (adult) 94 bpm (60 - 90) Respiratory Rate 14 bpm (12 - 24) O2 Sat by Pulse Oximetry 97 % (88 - 100) Blood Pressure 151/78 mm Hg Pain Pain Intensity 0 Height (Feet) 5 feet Height (Inches) 2.00 inches Height (Calculated Centimeters) 157. 767315 cm Weight (Pounds) 150 pounds Weight (Calculated Grams) 11958.856 gm Weight (Calculated Kilograms) 68.038 856 kilograms Calculated BMI 27.43 Interventions No Information Plan of Treatment Normalized Care Care Detail Care Activity Date Care Provider F acility Activity DEMI GRIGGS 07-27-2019 [employer] [phone] [employer] [facility] ([id number]) [facility]IGGS [facility] 01-26-2020 [employer] [phone] [facility] [employer] [facility] (Other Phone: [facility] ) [place] ([id number]) Goals No Information Social History No Information Functional Status The data below is from unstructured sourcesNo functional status results.No functional status results.No functional status results.No functional status results.No functional status results.No functional status results.No functional status results.No functional status results.No functional status results. Mental Status No Information Encounters Encounter Normalized Encounter Encounter Diagnosis Care Provi kehinde Organization Date Type 05-15-2019 [facility] Lumbago with sciatica, MAXWE LL SELF (no [facility] left side phone) (no phone) 02-06-2019 [facility] Lumbago with sciatica, CHILO TYLER (no phone) [facility] left side (no phone) 01-22-2019 [facility] Mixed hyperlipidemia MODESTA SELF (no [facility] phone) (no phone) 07-02-2018 [facility] Mixed hyperlipidemia MODESTA SELF (no [facility] phone) (no phone) 10-07-2018 [facility] Sciatica, right side B REFUGIO CRUZ (no DEMI GRIGGS WALK IN CARE phone) IN CARE (no phone) 03-21-2018 [facility] no information Doctor Migrati on (no [facility] phone) (no phone) 02-18-2018 [facility] no information Doctor Migrati on ([facility] phone) (no phone) 02-17-2018 [facility] no information Doctor Migrati on (no [facility] phone) (no phone) 12-23-2017 [facility] no information Doctor Migrati on (no [facility] phone) (no phone) 08-09-2017 [facility] no information Doctor Migrati on (no [facility] phone) (no phone) 07-21-2019 Consultation for Hypothyroidism, MODESTA SELF (no [facility] laboratory medicine unspecified phone) (no phone) 01-19-2019 Consultation for Mixed hyperlipidemia MODESTA SELF (no [facility] laboratory medicine phone) (no phone) 07-01-2018 Consultation for Hyperglycemia, MODESTA SELF (no [facility] laboratory medicine unspecified phone) (no phone) 08-19-2019 Emergency department no information FRANCISCO SOARES DO (no [facility] - patient visit phone) [facility] 08-19-2019 (no phone) 07-27-2019 Patient encounter Encounter for general MODESTA MESSI F (no [facility] procedure adult medical phone) (no phone) examination without abnormal findings 07-21-2019 Patient encounter no information [facility] J SELF (no [facility] procedure phone) (no phone) (no [facility] phone) [place] (no phone) 02-06-2019 Patient encounter no information no name no or ganization name procedure 01-19-2019 Patient encounter no information no name no or ganization name procedure 01-19-2019 Patient encounter no information no name no or ganization name procedure 07-02-2018 Patient encounter no information no name no or ganization name procedure 07-01-2018 Patient encounter no information no name no or ganization name procedure 07-01-2018 Patient encounter no information no name no or ganization name procedure 11-18-2017 Patient encounter no information (no phone) [facility] procedure [facility] (no phone) 08-09-2017 Patient encounter no information (no phone) [facility] procedure [facility] (no phone) 08-08-2017 Patient encounter no information (no phone) [facility] procedure [facility] (no phone) 06-07-2017 Patient encounter no information (no phone) [facility] (no phone) Patient encounter no information (no phone) [facility] (no phone) 08-03-2019 Telephone encounter no information MODESTA SELF (no [facility] phone) (no phone) 07-24-2019 Telephone encounter no information MODESTA SELF (no [facility] phone) (no phone) 06-29-2019 Telephone encounter no information MODESTA SELF (no [facility] phone) (no phone) 06-08-2019 Telephone encounter no information MODESTA SELF (no [facility] phone) (no phone) 05-11-2019 Telephone encounter no information MODESTA SELF (no [facility] phone) (no phone) 02-23-2019 Telephone encounter no information MODESTA SELF (no [facility] phone) (no phone) 01-19-2019 Telephone encounter Iron deficiency MODESTA SELF (n o [facility] anemia, unspecified phone) (no phone) 2018 Telephone encounter no information MODESTA SELF (no [facility] phone) (no phone) 10-14-2018 Telephone encounter no information MODESTA SELF (no [facility] phone) (no phone) 10-07-2018 Telephone encounter no information MODESTA SELF (no [facility] phone) (no phone) 06-30-2018 Telephone encounter no information MODESTA SELF (no [facility] phone) (no phone) 06-11-2018 Telephone encounter Mixed hyperlipidemia MODESTA SE LF (no [facility] phone) (no phone) 06-02-2018 Telephone encounter no information MODESTA SELF (no [facility] phone) (no phone) 03-30-2018 Telephone encounter no information Doctor Migration (no [facility] phone) (no phone) no information Encounter for general no name no organ ization name adult medical examination without abnormal findings Medical Equipment No Information Payers No Information History general Narrative - Reported Note Type Note Facility History general Narrative - Reported Type Medical Mixed hyperlipidemia History Medical Hypertension History Medical Renal insufficiency History Medical Acquired hypothyroidism History Medical Vitamin D deficiency History Medical Iron deficiency anemia History Medical Hyperglycemia History Medical Gastroesophageal reflux dis ease with esophagitis History Medical Hiatal hernia History Medical Tubular adenoma of colon History Medical CKD (chronic kidney disease ) stage 4, GFR 15-29 ml/min History Medical Gastritis and duodenitis History Medical Nocturnal dyspnea History Medical 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 History Medical DA (degenerative arthritis) History Surgical colonoscopy History Surgical tubal ligation History [facility] ([id number]) History general Narrative - Reported Note Type Note Facility History general Narrative - Reported Type Medical Mixed hyperlipidemia History Medical Hypertension History Medical Renal insufficiency History Medical Acquired hypothyroidism History Medical Vitamin D deficiency History Medical Iron deficiency anemia History Medical Hyperglycemia History Medical Gastroesophageal reflux dis ease with esophagitis History Medical Hiatal hernia History Medical Tubular adenoma of colon History Medical CKD (chronic kidney disease ) stage 4, GFR 15-29 ml/min History Medical Gastritis and duodenitis History Medical Nocturnal dyspnea History Medical 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 History Medical DA (degenerative arthritis) History Surgical colonoscopy-05/2017-pt to r epeat in 3 yrs History Surgical tubal ligation History Surgical EGD-07/2017 History [facility] ([id number]) Advance Directives Directive Response Recor ded Date/Time Advance Directives No 8:21am Health Care Power of Supply Chain Logistics Manager No 10/29/14 8:21am Organ Donor No 10/29/14 8:21am Resuscitation Status Full Code 10/29/14 8:21am Directive Response Recor ded Date/Time Advance Directives No 1:33pm Health Care Power of Supply Chain Logistics Manager No 12/14/13 1:33pm Organ Donor No 12/14/13 1:33pm Resuscitation Status Full Code 12/14/13 1:33pm Directive Response Recor ded Date/Time Advance Directives No 7:01am Health Care Power of Supply Chain Logistics Manager No 02/19/14 7:01am Organ Donor No 02/19/14 7:01am Resuscitation Status Full Code 02/19/14 7:01am Directive Response Recor ded Date/Time Advance Directives No 8:46am Health Care Power of Supply Chain Logistics Manager No 10/30/13 8:46am Organ Donor No 10/30/13 8:46am Resuscitation Status Full Code 10/30/13 8:46am Directive Response Recor ded Date/Time Advance Directives No 7:02am Health Care Power of Supply Chain Logistics Manager No 09/17/14 7:02am Organ Donor No 09/17/14 7:02am Resuscitation Status Full Code 09/17/14 7:02am Discharge Instructions No hospital discharge instructions.No hospital discharge instructions.No hospital discharge instructions.No hospital discharge instructions.No hospital discharge instructions. Additional Source Comments This clinical document has been generated using OpenDrive software that has been certified by the Office of the National Coordinator for Health Information Technology (ONC 15.99.04.3023.Diam.31.00.0.297910) and the National Committee for Dialysis Biomed Technician (NCQA, as an eMeasure certified technology). FOR RECORDS PERTAINING TO PATIENTS WHO ARE OR HAVE BEEN ENROLLED IN A CHEMICAL D EPENDENCY/SUBSTANCE ABUSE PROGRAM, SOME INFORMATION MAY BE OMITTED. This clinica l summary was aggregated from multiple sources. Caution should be exercised in using it in the provision of clinical care. This summary normalizes information from multiple sources, and as a consequence, information in this document may ma terially change the coding, format and clinical context of patient data. In anastasiya tion, data may be omitted in some cases. CLINICAL DECISIONS SHOULD BE BASED ON T HE PRIMARY CLINICAL RECORDS. [employer] provides no warranty or guara ntee of the accuracy or completeness of information in this document.The followi ng information is based on time limited clinical information UNRECOGNIZED CONTENT PROVIDED BELOW FOR UNRECOGNIZED SECTION REASON FOR VISIT Refill requestLab (walk-in)Lab (walk-in)
--- OUTSIDE RECORDS SUMMARY | 2019-08-19 15:58 | XMS REPORT | Encounter Summary ---
Author Author [facility] Organization [facility] Address Unknown Phone Unavailable Care Team Providers Care Actuarial Assistant Name Role Phone SelfBradly MD PCP Reason for Visit * Reason Onset Date Comments Medication Refill 11/18/2017 Encounter Details Care Team Description Date Type Department Self, Bradly Ayala MD [address] [place] [address] Hypothyroidism, unspecified type (Primar y Dx); Vitamin D deficiency 11/18/2017 Refill [facility] Primar y Care [place] [address] [place] [address] Social History Date Tobacco Use Types Packs/Day Years Used Never Smoker Smokeless Tobacco: Never Used Drinks/Week oz/Week Comments Alcohol Use No Sex Assigned at Date Recorded Not on file documented as of this encounter Plan of Treatment Not on filedocumented as of this encounter Results * VITAMIN D 25 HYDROXY (02/17/2018 8:37 AM [facility]) VITAMIN D TOTAL 8 (L) >30 ng/mL [facility] (25OH) [facility] Specimen Blood Narrative Performed At Interpretive Data Chart: [facility] Deficient:0 - 20 ng/mL [facility] Insufficient:21 - 29 ng/mL Sufficient:30 - 100 ng/mL Increased Risk of Hypercalciuria:>100 n g/mL Toxic:>150 ng/mL [facility] ACC #: [id number] Performing Organization Address City/State/[facility] Ph one [facility] CLIA # [id number] [place] [address] [phone] [facility] [address] [facility] CLIA # [id number] [place] [address] [facility] [address] [facility] [place] * T4 FREE (02/17/2018 8:37 AM [facility]) T4 FREE 1.21 0.93 - 1.70 ng/dL [facility] [employer] [facility] Specimen Blood Performing Organization Address City/[facility] Ph one Ken [facility] CLIA# [id number] [place] [address] - [facility] [address] [place], [place] [address] * TSH (02/17/2018 8:37 AM [facility]) TSH 5.48 (H) 0.27 - 4.20 uIU/mL [facility] [employer] [facility] [place] [facility] Specimen Blood Performing Organization Address [facility] one Ken [facility] [employer] [facility] CLIA# [id number] [place] [address] - [place] [address] [place] [address] documented in this encounter Visit Diagnoses Diagnosis Hypothyroidism, unspecified type Vitamin D deficiency Unspecified vitamin D deficiency documented in this encounter
--- OUTSIDE RECORDS SUMMARY | 2019-08-19 15:58 | XMS REPORT | Encounter Summary ---
Author Author [facility] Organization [facility] Address Unknown Phone Unavailable Care Team Providers Care Dispatcher Maintenance Service Name Role Phone Bradly Brady MD PCP Reason for Visit * Reason Comments Back Pain Encounter Details Care Team Description Date Type Department Bradly Brady MD [address] [place] [address] Spinal stenosis of lumbar region with ne urogenic claudication (Primary Dx); Vitamin D deficiency; Acquired hypothyroidism 03/21/[address] [facility] [address] [place] [address] Social History Date Tobacco Use Types Packs/Day Years Used Never Smoker Smokeless Tobacco: Never Used Drinks/Week oz/Week Comments Alcohol Use No Sex Assigned at Date Recorded Not on file documented as of this encounter Last Filed Vital Signs Reading Time Taken Comments Vital Sign 124/70 03/21/2018 9:55 AM LAND CONSERVATION SPECIALIST Blood Pressure - - Pulse - - Temperature - - Respiratory Rate - - Oxygen Saturation - - Inhaled Oxygen Concentration 74.4 kg (164 lb) 03/21/2018 9:55 AM LAND CONSERVATION SPECIALIST Weight 157.5 cm (5' 2") 03/21/2018 9:55 AM LAND CONSERVATION SPECIALIST Height 30 03/21/2018 9:55 AM LAND CONSERVATION SPECIALIST Body Mass Index documented in this encounter Progress Notes * Bradly Brady MD - 03/21/2018 10:07 AM LAND CONSERVATION SPECIALIST SUBJECTIVE: Era Viveros is a 77 y.o. female seen for Chief Complaint Patient presents with Back Pain Ss per [place] Pain down left leg worse Dec/depo has been very beneficial REVIEW OF SYMPTOMS Constitutional neg for fever. OBJECTIVE: BP 124/70 | Ht 5' 2" (1.575 m) | Wt 74.4 kg (164 lb) | BMI 30.00 kg/m Generally the patient appears well. HEENT is within normal limits. Cardiac exam shows S1 and S2 normal. Heart is regular in rate and rhythm. The chest is clear with no wheezes or rales. There is no lower extremity edema. Skin is warm and dry. ASSESSMENT: Encounter Diagnoses Name Primary? Spinal stenosis of lumbar region with neurogenic claudication Vitamin D deficiency Acquired hypothyroidism PLAN: Dec depo Still may need surgery Low TSH and very low D reviewed follow up labs May The plan of care is reviewed in detail with the patient at today's visit. An Af ter Visit Summary (AVS) is also printed for the patient. All concerns are disc ussed with the patient and all questions are fully answered. SCREENING: The 10-year ASCVD risk score (Ricky DC Jr., et al., 2013) is: 24.9% Values used to calculate the score: Age: 77 years Sex: Female Is Non- : No Diabetic: No Tobacco smoker: No Systolic Blood Pressure: 124 mmHg Is BP treated: Yes HDL Cholesterol: 71 mg/dL Total Cholesterol: 227 mg/dL Tobacco Intervention She is not a tobacco user. Depression Screen Positive: PHQ-2 score > 2 or PHQ-9 score > 9 Her depression screen was normal Blood Pressure BP Readings from Last 3 Encounters: 09/27/16 (!) 140/86 09/04/16 136/73 07/18/16 132/82 Normal BMI Range: 18 & older: > or = 18.5 and < 25 Body mass index is 27.46 kg/(m^2). Abnormal high BMI: Patient counseled on lifestyle modifications including weight loss and daily exercise. CONSERVATION SPECIALIST documented in this encounter Miscellaneous Notes * Addendum Note - Angelic Mai - 03/21/2018 10:16 AM LAND CONSERVATION SPECIALIST Addended by: ANGELIC MAI on: 03/21/2018 10:16 AM Modules accepted: Orders CONSERVATION SPECIALIST documented in this encounter Plan of Treatment Not on filedocumented as of this encounter Visit Diagnoses Diagnosis Spinal stenosis of lumbar region with n eurogenic claudication Spinal stenosis, lumbar region, with ne urogenic claudication Vitamin D deficiency Unspecified vitamin D deficiency Acquired hypothyroidism Unspecified hypothyroidism documented in this encounter Administered Medications Action Date Dose Rate Site Medication Order MAR Action 03/21/2018 10:15 AM LAND CONSERVATION SPECIALIST 4 mg Buttock, Left dexamethasone (DECADRON) injection 4 mg Given 4 mg, IM, ONE TIME ONLY, 1 dose, Sat03/21/18 at 1030, Routine 03/21/2018 10:15 AM LAND CONSERVATION SPECIALIST 80 mg Buttock, Left methylPREDNISolone acetate (DEPO-Medrol) Given injection 80 mg 80 mg, IM, ONE TIME ONLY, 1 dose, Sat03/21/18 at 1030, Routine documented in this encounter
--- OUTSIDE RECORDS SUMMARY | 2019-08-19 15:58 | XMS REPORT | Encounter Summary ---
Author Author [facility] Organization [facility] Address Unknown Phone Unavailable Care Team Providers Care Oil Well Service Unit Operator Name Role Phone Self, Bradly Ayala MD PCP Reason for Visit * Reason Comments Medication Refill Encounter Details Care Team Description Date Type Department Self, Bradly Ayala MD [address] [place] [address] 02/03/2018 Refill [facility] Primar y Care [place] [address] [place] [address] Social History Date Tobacco Use Types Packs/Day Years Used Never Smoker Smokeless Tobacco: Never Used Drinks/Week oz/Week Comments Alcohol Use No Sex Assigned at Date Recorded Not on file documented as of this encounter Plan of Treatment Not on filedocumented as of this encounter Visit Diagnoses Not on filedocumented in this encounter
--- OUTSIDE RECORDS SUMMARY | 2019-08-19 15:58 | XMS REPORT | Encounter Summary ---
Author Author [facility] Organization [facility] Address Unknown Phone Unavailable Care Team Providers Care Welding Machine Operator Submerged Arc Name Role Phone Bradly Brady MD PCP Reason for Visit * Reason Comments Follow Up 3 mth w/lab results Encounter Details Care Team Description Date Type Department Bradly Brady MD [address] [place] [address] Essential hypertension (Primary Dx); Mixed hyperlipidemia; Hyperglycemia 02/17/2018 Office Visit [facility] [address] [place] [address] Social History Date Tobacco Use Types Packs/Day Years Used Never Smoker Smokeless Tobacco: Never Used Drinks/Week oz/Week Comments Alcohol Use No Sex Assigned at Date Recorded Not on file documented as of this encounter Last Filed Vital Signs Reading Time Taken Comments Vital Sign 120/64 02/17/2018 10:02 AM LABORER PLUMBING Blood Pressure - - Pulse - - Temperature - - Respiratory Rate - - Oxygen Saturation - - Inhaled Oxygen Concentration 72.6 kg (160 lb) 02/17/2018 10:02 AM LABORER PLUMBING Weight 157.5 cm (5' 2") 02/17/2018 10:02 AM LABORER PLUMBING Height 29.26 02/17/2018 10:02 AM LABORER PLUMBING Body Mass Index documented in this encounter Progress Notes * Bradly Brady MD - 02/17/2018 11:22 AM LABORER PLUMBING SUBJECTIVE: Era Viveros is a 77 y.o. female seen for Chief Complaint Patient presents with Follow Up 3 mth w/lab results REVIEW OF SYMPTOMS Constitutional neg for fever. OBJECTIVE: BP 120/64 | Ht 5' 2" (1.575 m) | Wt 72.6 kg (160 lb) | BMI 29.26 kg/m Generally the patient appears well. HEENT is within normal limits. Cardiac exam shows S1 and S2 normal. Heart is regular in rate and rhythm. The chest is clear with no wheezes or rales. There is no lower extremity edema. Skin is warm and dry. Lab Results Component Value Date/Time NA 143 02/17/2018 08:37 AM K 4.4 02/17/2018 08:37 AM CL 107 02/17/2018 08:37 AM CO2 26 02/17/2018 08:37 AM CA 8.9 02/17/2018 08:37 AM BUN 15 02/17/2018 08:37 AM CREAT 1.52 (H) 02/17/2018 08:37 AM GLUCOSE 103 (H) 02/17/2018 08:37 AM TOTALPROTEIN 7.5 02/17/2018 08:37 AM ALBUMIN 4.1 02/17/2018 08:37 AM BILITOTAL 0.2 02/17/2018 08:37 AM ALKPHOS 70 02/17/2018 08:37 AM AST 32 02/17/2018 08:37 AM ALT 28 02/17/2018 08:37 AM ANIONGAP 10 02/17/2018 08:37 AM BCRATIO 13.5 03/06/2012 07:50 AM Lab Results Component Value Date/Time HGBA1C 5.9 02/17/2018 08:37 AM Lab Results Component Value Date/Time TSH 5.48 (H) 02/17/2018 08:37 AM Lab Results Component Value Date/Time CHOLTOT 227 (H) 02/17/2018 08:37 AM HDL 71 (H) 02/17/2018 08:37 AM LDLCALC 134 (H) 02/17/2018 08:37 AM LDLDIRECT 122 06/06/2011 08:02 AM TRIGLYCERIDE 108 02/17/2018 08:37 AM ASSESSMENT: Encounter Diagnoses Name Primary? Essential hypertension Yes Mixed hyperlipidemia Hyperglycemia PLAN: Orders Placed This Encounter levothyroxine (SYNTHROID) 50 mcg tablet Increasing above; The dosing and administration of the medication prescribed abo ve is reviewed with the patient during the visit. The other chronic problems listed above are reviewed and deemed stable at today' s visit. The plan of care is reviewed in detail with the patient at today's visit. An Af ter Visit Summary (AVS) is also printed for the patient. All concerns are disc ussed with the patient and all questions are fully answered. SCREENING: The 10-year ASCVD risk score ([place] CRUZ Jr., et al., 2013) is: 23.5% Values used to calculate the score: Age: 77 years Sex: Female Is Non- : No Diabetic: No Tobacco smoker: No Systolic Blood Pressure: 120 mmHg Is BP treated: Yes HDL Cholesterol: [...] modifications including weight loss and daily exercise. RER PLUMBING documented in this encounter Miscellaneous Notes * Addendum Note - Angelic Mai - 02/17/2018 11:32 AM LABORER PLUMBING Addended by: ANGELIC MAI on: 02/17/2018 11:32 AM Modules accepted: Orders RER PLUMBING documented in this encounter Plan of Treatment Not on filedocumented as of this encounter Visit Diagnoses Diagnosis Essential hypertension Unspecified essential hypertension Mixed hyperlipidemia Hyperglycemia Other abnormal glucose documented in this encounter
--- OUTSIDE RECORDS SUMMARY | 2019-08-19 15:58 | XMS REPORT | Encounter Summary ---
Author Author [facility] Organization [facility] Address Unknown Phone Unavailable Care Team Providers Care Clutch Mechanic Name Role Phone SelfBradly MD PCP Reason for Visit * Reason Onset Date Comments Medication Refill 02/18/2018 Encounter Details Care Team Description Date Type Department Self, Bradly Ayala MD [address] [place] [address] Vitamin D deficiency (Primary Dx) 02/18/2018 Refill [facility] Primar y Care [place] [address] [place] [address] Social History Date Tobacco Use Types Packs/Day Years Used Never Smoker Smokeless Tobacco: Never Used Drinks/Week oz/Week Comments Alcohol Use No Sex Assigned at Date Recorded Not on file documented as of this encounter Plan of Treatment Not on filedocumented as of this encounter Visit Diagnoses Diagnosis Vitamin D deficiency Unspecified vitamin D deficiency documented in this encounter
--- OUTSIDE RECORDS SUMMARY | 2019-08-19 15:58 | XMS REPORT | Encounter Summary ---
Author Author [facility] Organization [facility] Address Unknown Phone Unavailable Care Team Providers Care Manager Skilled Name Role Phone Self, Bradly Ayala MD PCP Encounter Details Care Team Description Date Type Department Self, Bradly Ayala MD [address] [place] [address] [facility], Outpt Lab 02/17/2018 [facility] Outpatient Encounter Laboratory [address] [address] Social History Date Tobacco Use Types Packs/Day Years Used Never Smoker Smokeless Tobacco: Never Used Drinks/Week oz/Week Comments Alcohol Use No Sex Assigned at Date Recorded Not on file documented as of this encounter Medications at Time of Discharge Start Date End Date Medication Sig Dispensed Refills 02/17/2018 levothyroxine (SYNTHROID) Take 1 Tablet 90 Tablet 3 50 mcg tablet (50 mcg) by mouth daily early childhood. 02/03/2018 metoprolol tartrate Take 1 Tab by 60 Tablet 5 (LOPRESSOR) 25 mg tablet mouth 2 times daily. 02/03/2018 NIFEdipine (PROCARDIA XL) Take 1 Tab by 60 Tablet 5 30 mg Extended Release 24 mouth 2 times hour tablet daily. 12/24/2017 furosemide (LASIX) 20 mg Take 1 Tab by 30 Tablet 5 tablet mouth daily. ferrous sulfate (FEROSUL) Take 325 mg 0 325 mg (65 mg iron) by mouth tablet daily. 11/18/2017 alendronate (FOSAMAX) 70 Take 1 Tablet 4 Tablet 11 mg tablet (70 mg) by mouth every 7 days empty stomach before other meds,with 8oz of water, stay upright 30 min. 10/16/2017 pantoprazole (PROTONIX) Take 1 Tablet 90 Tablet 3 40 mg Tablet, Delayed (40 mg) by Release mouth daily (E.C.)Indications: before Gastritis, presence of breakfast. 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 10/16/2017 ALPRAZolam (XANAX) 0.25 Take 1 Tablet 90 Tablet 3 mg tabletIndications: (0.25 mg) by Anxiety mouth 3 times daily as needed for Anxiety. 06/24/2017 dicyclomine (BENTYL) 20 Take 1 Tab by 120 Tablet 5 mg tablet mouth 4 times daily before meals and at bedtime. 0mega-3 fatty Take 2 0 acids-vitamin E (FISH Capsules by OIL) 1,000 mg Capsule mouth 2 times daily OMEGA RED. 11/18/2017 06/02/2018 raloxifene (EVISTA) 60 mg Take 1 Tab by 30 Tablet 5 tablet mouth daily. 05/16/2017 05/20/2018 gabapentin (NEURONTIN) Take 1 90 Capsule 3 300 mg Capsule (300 capsuleIndications: mg) by mouth Neuropathy daily at bedtime. documented as of this encounter Plan of Treatment Not on filedocumented as of this encounter Procedures Comments Procedure Name Priority Date/Time Associated Diag nosis CBC WITH DIFFERENTIAL Stat 02/17/2018 [facility] hypertension 8:37 AM BRICKLAYER TENDER Acute blood loss anemia Post-menopausal Mixed hyperlipidemia CKD (chronic kidney disease) stage 4, GFR 15-29 ml/min Screening for thyroid disorder Hyperglycemia VITAMIN D 25 HYDROXY Routine 02/17/2018 Vitamin D deficiency 8:37 AM BRICKLAYER TENDER TSH Routine 02/17/2018 Hypothyroidism, 8:37 AM BRICKLAYER TENDER unspecified type T4 FREE Routine 02/17/2018 Hypothyroidism, 8:37 AM BRICKLAYER TENDER unspecified type HEMOGLOBIN A1C Stat 02/17/2018 Essential hyper tension 8:37 AM BRICKLAYER TENDER Acute blood loss anemia Post-menopausal Mixed hyperlipidemia CKD (chronic kidney disease) stage 4, GFR 15-29 ml/min Screening for thyroid disorder Hyperglycemia LIPID PANEL Stat 02/17/2018 Essential hyper tension 8:37 AM BRICKLAYER TENDER Acute blood loss anemia Post-menopausal Mixed hyperlipidemia CKD (chronic kidney disease) stage 4, GFR 15-29 ml/min Screening for thyroid disorder Hyperglycemia COMPREHENSIVE METABOLIC Stat 02/17/[facility] PANEL 8:37 AM BRICKLAYER TENDER Acute blood loss an emia Post-menopausal Mixed hyperlipidemia CKD (chronic kidney disease) stage 4, GFR 15-29 ml/min Screening for thyroid disorder Hyperglycemia documented in this encounter Results * CBC WITH DIFFERENTIAL (02/17/2018 8:37 AM BRICKLAYER TENDER) WBC 4.5 3.6 - 11.1 K/uL [facility] [place] RBC 4.91 3.78 - 5.21 M/uL [facility] [place] [facility] HEMOGLOBIN 13.8 11.1 - 15.5 g/dL [facility] HEMATOCRIT 44.2 34.3 - 46.7 % [facility] MCV 90.0 82.7 - 97.1 fL [facility] [place] [facility] MCH 28.1 27.1 - 32.3 pg [facility] MCHC 31.2 (L) 31.3 - 34.9 g/dL [facility] [place] [facility] RDW 14.3 11.5 - 14.7 % [facility] [place] [facility] RDW-STDEV 46.7 37.2 - 47.6 fL [facility] [place] [facility] PLATELETS 211 136 - 352 K/uL [facility] MPV 10.7 8.6 - 11.8 fL [facility] [place] [facility] NEUTROPHILS 61 44 - 74 % [facility] [place] [facility] LYMPHOCYTES 25 16 - 44 % [facility] [place] [facility] MONOCYTES 12 (H) 4 - 11 % [facility] [place] [facility] EOSINOPHILS 2 0 - 6 % [facility] [place] [facility] BASOPHILS 1 0 - 1 % [facility] [place] [facility] IMMATURE 0 0 - 1 % [facility] [place] NEUTROPHIL 2.69 1.54 - 7.18 K/uL [facility] [place] LYMPHOCYTE 1.10 0.69 - 3.61 K/uL [facility] [place] MONOCYTE 0.53 0.19 - 0.95 K/uL [facility] [place] EOSINOPHIL 0.08 0.00 - 0.44 K/uL [facility] [place] BASOPHILS 0.04 0.00 - 0.10 K/uL [facility] [place] IMMATURE 0.01 0.00 - 0.09 K/uL [facility] GRANULOCYTES LABORATORY ABSOLUTE [facility] - [place] Specimen Blood Performing Organization Address City/[facility] Ph one Ken [facility] LABORATORY SERVICES CLIA# [id number] KRISTA LAUREN [address] [address] * HEMOGLOBIN A1C (02/17/2018 8:37 AM BRICKLAYER TENDER) HEMOGLOBIN A1C 5.9 4.8 - 5.9 % [facility] [place] EST. AVG 123 mg/dL [facility] GLUCOSE, A1C [facility]ATORY [facility] [place] Specimen Blood Narrative Performed At HGB A1C INTERPRETATION [facility] LABORATORY NORMAL: <5.7% [facility] PRE-DIABETES: 5.7 - 6.4% INDU DIABETES: 6.5% OR GREATER Performing Organization Address City/[facility] one [facility]ly [facility] LABORATORY SERVICES CLIA# [id number] [place] [address] [address] * LIPID PANEL (02/17/2018 8:37 AM BRICKLAYER TENDER) CHOLESTEROL 227 (H) <200 mg/dL [facility] [place] TRIGLYCERIDE 108 <150 mg/dL [facility] [place] HDL 71 (H) 40 - 59 mg/dL [facility] [place] LDL CALCULATED 134 (H) <100 mg/dL [facility] [place] NON-HDL 156 (H) <130 mg/dL [facility] CHOLESTEROL [facility]ORY [facility] [place] Specimen Blood Narrative Performed At TOTAL CHOLESTEROL mg/dL [facility] LABORATORY Desirable <200 [facility] Borderline high 200-239 INDU High >=240 TRIGLYCERIDES mg/dL Normal <150 Borderline high 150-199 High 200-499 Very high >=500 HDL CHOLESTEROL mg/dL Low <40 Normal 40-59 Desirable >=60 NON HDL CHOLESTEROL mg/dL Optimal <130 Near Optimal 130-159 Borderline High 160-189 Very High >=190 Calculated LDL mg/dL Optimal <100 Near Optimal 100-129 Borderline High 130-159 High 160-189 Very High >=190 ATPIII Guidelines Reference Ranges for Lipid Panels (NCEP/AMA) Performing Organization Address City/State/Zipcode Ph one Number [facility] LABORATORY SERVICES CLIA# [id number] [place] [address] - [place] [address] [facility] * COMPREHENSIVE METABOLIC PANEL (02/17/2018 8:37 AM BRICKLAYER TENDER) [facility] SODIUM 143 136 - 145 mmol/L [facility] [place] [facility] POTASSIUM 4.4 3.5 - 5.1 mmol/L [facility] [place] CHLORIDE 107 98 - 107 mmol/L [facility] [place] CO2 26 22 - 29 mmol/L [facility] [place] CALCIUM 8.9 8.8 - 10.2 mg/dL [facility] [place] BUN 15 8 - 23 mg/dL [facility] [place] CREATININE 1.52 (H) 0.51 - 0.95 mg/dL [facility] Comment: LABORATORY The GFR result is not [facility] clinically significant on [place]ALIA patients <18 or >70 years of age. GLUCOSE 103 (H) 74 - 99 mg/dL [facility] [place] [facility] TOTAL PROTEIN 7.5 6.6 - 8.7 g/dL [facility] [place] ALBUMIN 4.1 3.5 - 5.2 g/dL [facility] [place] BILIRUBIN TOTAL 0.2 <=1.2 mg/dL [facility] [place] ALKALINE 70 35 - 104 U/L [facility] [place] AST 32 <=33 U/L [facility] [place] ALT 28 10 - 35 U/L [facility] [place] GFR 33 mL/min/1.73 sq meter [facility] Comment: LABORATORY eGFR has not been validated [facility] for use in the elderly (> 70 IDALIA years of age), women, patients with serious co-morbid conditions, or persons with extremes of body size or muscle mass and should also be interpreted with caution in patients with acute kidney failure, dialysis dependent patients, patients reporting exceptional dietary intake (e.g. vegetarian diet, high protein diets, creatine supplementation), and patients with severe liver disease. Based on National Kidney Disease Education Program If patient is , please refer to the GFR result. GFR, 40 mL/min/1.73 sq meter [facility] LAB[facility]ATORY [facility] - [place] ANION GAP 10 4 - 20 mmol/L [facility] LAB[facility]ATORY [facility] - [place] Specimen Blood Performing Organization Address [facility] LABORATORY SERVICES CLIA# [id number] KRISTA LAUREN [facility] 01 - [address] * T4 FREE (02/17/2018 8:37 AM BRICKLAYER TENDER) T4 FREE 1.21 0.93 - 1.70 ng/dL [facility] SERVICES - [place] Specimen Blood Performing Organization Address [facility] SERVICES CLIA# [id number] KRISTA LAUREN [facility] [phone] - [address] * TSH (02/17/2018 8:37 AM BRICKLAYER TENDER) TSH 5.48 (H) 0.27 - 4.20 uIU/mL [facility]ATORY [facility] - [place] Specimen Blood Performing Organization Address [facility] CLIA# [id number] [place] [address] [phone] - [address] * VITAMIN D 25 HYDROXY (02/17/2018 8:37 AM BRICKLAYER TENDER) Pathologist [facility] VITAMIN D TOTAL 8 (L) >30 ng/mL [facility] (25OH) [facility]ORY [facility] Specimen Blood Narrative Performed At Interpretive Data Chart: [facility] LABORATORY Deficient:0 - 20 ng/mL [facility] Insufficient:21 - 29 ng/mL Sufficient:30 - 100 ng/mL Increased Risk of Hypercalciuria:>100 n g/mL Toxic:>150 ng/mL REFERENCE LAB ACC #: [id number] Performing Organization Address [facility] one [facility]ly [facility] LABORATORY CLIA # [id number] OLIVER Garvey [address] [phone] [facility]-[place] [address] [facility] LABORATORY CLIA # [id number] OLIVER Gar[place] [address] [facility] [address] [facility] documented in this encounter Visit Diagnoses Diagnosis Vitamin D deficiency Unspecified vitamin D deficiency Hypothyroidism, unspecified type Essential hypertension Unspecified essential hypertension Acute blood loss anemia Acute posthemorrhagic anemia Post-menopausal Asymptomatic postmenopausal status (age -related) (natural) Mixed hyperlipidemia CKD (chronic kidney disease) stage 4, G FR 15-29 ml/min Chronic kidney disease, Stage IV (sever e) Screening for thyroid disorder Hyperglycemia Other abnormal glucose documented in this encounter
--- OUTSIDE RECORDS SUMMARY | 2019-08-19 15:58 | XMS REPORT | Encounter Summary ---
Author Author [facility] Organization [facility] Address Unknown Phone Unavailable Care Team Providers Care Director Of Food And Nutrition Services Name Role Phone Self, Bradly Ayala MD PCP Reason for Visit * Reason Comments Medication Refill Encounter Details Care Team Description Date Type Department Self, Bradly Ayala MD [address] [place] [address] 12/23/2017 Refill [facility] Primar y Care [place] [address] [place] [address] Social History Date Tobacco Use Types Packs/Day Years Used Never Smoker Smokeless Tobacco: Never Used Drinks/Week oz/Week Comments Alcohol Use No Sex Assigned at Date Recorded Not on file documented as of this encounter Plan of Treatment Not on filedocumented as of this encounter Visit Diagnoses Not on filedocumented in this encounter
--- OUTSIDE RECORDS SUMMARY | 2019-08-19 15:58 | XMS REPORT | Clinical Summary ---
Author Author [facility] Organization [facility] Address Unknown Phone Unavailable Care Team Providers Care Medical Records Coder Name Role Phone Self, Bradly Ayala MD PCP Allergies Comments Active Allergy Reactions Severity Noted Date Allopurinol Rash 03/26/2008 Indomethacin Renal 03/26/2008 Dysfunctions Horse serum Unclassified Drug Other (See 03/23/2008 Comments) Medications End Date Status Medication Sig Dispensed Refills Start Date Active 0mega-3 fatty Take 2 0 acids-vitamin E (FISH Capsules by OIL) 1,000 mg Capsule mouth 2 times daily OMEGA RED. Active dicyclomine (BENTYL) 20 Take 1 Tab by 120 Tablet 5 06/24/201 mg tablet mouth 4 times 8 daily before meals and at bedtime. Active pantoprazole (PROTONIX) Take 1 Tablet 90 Tablet 3 40 mg Tablet, Delayed (40 mg) by 8 Release mouth daily (E.C.)Indications: before Gastritis, presence of breakfast. 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 Active ALPRAZolam (XANAX) 0.25 Take 1 Tablet 90 Tablet 3 10/16/201 mg tabletIndications: (0.25 mg) by 8 Anxiety mouth 3 times daily as needed for Anxiety. Active alendronate (FOSAMAX) 70 Take 1 Tablet 4 Tablet 11 11/18/201 mg tablet (70 mg) by 8 mouth every 7 days empty stomach before other meds,with 8oz of water, stay upright 30 min. Active ferrous sulfate (FEROSUL) Take 325 mg 0 325 mg (65 mg iron) by mouth tablet daily. Active furosemide (LASIX) 20 mg Take 1 Tab by 30 Tablet 5 tablet mouth daily. 8 Active metoprolol tartrate Take 1 Tab by 60 Tablet 5 (LOPRESSOR) 25 mg tablet mouth 2 times 8 daily. Active NIFEdipine (PROCARDIA XL) Take 1 Tab by 60 Tablet 5 30 mg Extended Release 24 mouth 2 times 8 hour tablet daily. Active levothyroxine (SYNTHROID) Take 1 Tablet 90 Tablet 3 50 mcg tablet (50 mcg) by 8 mouth daily forecast analyst. Active gabapentin (NEURONTIN) Take 1 90 Capsule 3 300 mg capsule Capsule (300 9 mg) by mouth daily at bedtime. Active raloxifene (EVISTA) 60 mg Take 1 Tablet 60 Tablet 2 tablet (60 mg) by 9 mouth daily. Active ergocalciferol (VITAMIN Take 1 4 Capsule 0 D2) 50,000 unit capsule Capsule 9 (50,000 Units) by mouth every 7 days. 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 03/21/2018 Vitamin D deficiency 03/21/2018 Acquired hypothyroidism 03/21/2018 CKD (chronic kidney disease) stage 4, GFR 15-29 ml/mi n 11/18/2017 Hyperglycemia 11/18/2017 Hiatal hernia 08/15/2017 Gastroesophageal reflux disease with esophagitis Gastritis and duodenitis 08/15/2017 Acute blood loss anemia 08/07/2017 Renal insufficiency 05/16/2017 Nocturnal dyspnea 08/30/2016 Familial hypercholesterolemia 08/30/2016 Iron deficiency anemia 04/10/2015 Pneumonia 04/09/2015 Prediabetes 09/16/2014 Mixed hyperlipidemia 06/05/2012 Tubular adenoma of colon 04/09/2012 Hypertension 07/13/2010 DA (degenerative arthritis) 07/13/2010 Knee pain 07/13/2010 Status post colonoscopy with polypectomy 04/29/2009 Immunizations Name Administration Dates Next Due Hepatitis B Vaccine 12/30/1993, 07/01/1993, 10/1993 Influenza A (H1N1) 03/14/2009 Vaccine IM Influenza Vaccine High 02/17/2018, 02/05/2017, , 12/21/2014 Dose 65+ Yrs IM Influenza Vaccine Split 12/31/2013, 03/26/2013, 08/2011, 01/16/2011 3+ Yrs IM Pneumococcal 13-valent 04/12/2015 Conjugate Vaccine Pneumococcal 06/21/2016 Polysaccharide Vaccine 23-Valent IM Td Vaccine > 7 YO IM 08/23/2003 Family History Medical History Relation Name Comments Diabetes Brother Hypertension Brother Colon Cancer Father Other Mother aneurysm Other Paternal of accident Grandfather Hypertension Sister Healthy Son 2 Relation Name Status Comments Brother Alive Father Maternal Grandfather Maternal Grandmother Mother Paternal Grandfather Paternal Grandmother Sister Alive Son 2 Alive Social History Date Tobacco Use Types Packs/Day Years Used Never Smoker Smokeless Tobacco: Never Used Drinks/Week oz/Week Comments Alcohol Use No Sex Assigned at Date Recorded Not on file Last Filed Vital Signs Reading Time Taken Comments Vital Sign 124/70 03/21/2018 9:55 AM COMPLIANCE REPRESENTATIVE DEALER Blood Pressure 68 08/09/2017 12:00 PM CDT Pulse 36.6 C (97.8 F) 12/23/2017 9:44 AM CDT Temperature 14 08/09/2017 12:00 PM CDT Respiratory Rate 94% 08/09/2017 12:00 PM CDT Oxygen Saturation - - Inhaled Oxygen Concentration 74.4 kg (164 lb) 03/21/2018 9:55 AM COMPLIANCE REPRESENTATIVE DEALER Weight 157.5 cm (5' 2") 03/21/2018 9:55 AM COMPLIANCE REPRESENTATIVE DEALER Height 30 03/21/2018 9:55 AM COMPLIANCE REPRESENTATIVE DEALER Body Mass Index Plan of Treatment Health Maintenance Due Date Last Done Comments ZOSTER VACCINE (1 of 2) 1990 INFLUENZA VACCINE 10/30/2018 02/17/2018, 02/05/2017, 02/16/2016, Additional history exists COLORECTAL SCREENING 06/07/2020 06/07/2017, 04/18/2012, 04/18/2012, Additional history exists PNEUMOCOCCAL VACCINE 65+ Completed 06/21/2016, YEARS 04/12/2015 OSTEOPOROSIS SCREENING Completed 11/18/2017 Results Not on filefrom Last 3 Months Insurance Type Payer Benefit Subscriber ID Effective Phone Address Plan / Dates Group Medicare MEDICARE MEDICARE [id number] 2008-P PART A AND resent B Commercial AARP AARP [id number] 2011-P [address] MED[address]ARE resent [id number] [place] [address] RX Medicare Part D RX OPT[employer] RX RX MEDD [id number] Effective [phone] CREVE PRESCRIPTI for all OLIVER ZAVALA ON dates SOLUTIONS 1 FeliceBaraga Mathis Personal/F Self 1940 [address] INCLUDE [address] [facility]S [facility] amily (Home) [place] [id number] 1 FeliceBaraga Mathis Personal/F Self 1940 1 [address]S INCLUDE [address] BEDS [facility] am[place] (Home) [place] [id number] 1 Cade Viverosta Mathis Personal/F Self 1940 1 [address] COUNTS INCLUDE 234 BEDS [facility] amily (Home[place] [id number] 1 Cade Viverosta Mathis Personal/F Self 1940 [address] INCLUDE [address] BEDS [facility] [place]il (Home) [place] [id number] 1 FeliceEra Mathis Personal/F Self [address] [place] [address] amil (Home) [place] [id number] 1 Advance Directives For more information, please contact: [phone] Patient Sports Leadership Instructor Explanation Type Date Recorded Advance Directive 08/09/2017 7:56 AM POA Advance Directive 08/09/2017 7:56 AM Living Will Date Inactivated Comments Code Status Date Activated 08/10/2017 2:08 AM Full Code 08/09/2017 11:05 AM 08/08/2017 5:47 PM Full Code 08/07/2017 3:52 PM 04/12/2015 6:09 PM Full Code 04/08/2015 12:10 PM
--- OUTSIDE RECORDS SUMMARY | 2019-08-19 15:58 | XMS REPORT | Encounter Summary ---
Author Author [facility] Address Unknown Phone Unavailable Care Team Providers Care Last Puller Name Role Phone Self, Bradly Ayala MD PCP Reason for Visit * Reason Comments Gout left let swelling / redness this am Encounter Details Care Team Description Date Type Department Radha Torres APRN [address] [place] [address] Gout, unspecified cause, unspecified chr onicity, unspecified site (Primary Dx) 12/23/2017 Office Visit [facility] [address] [place] [address] Social History Date Tobacco Use Types Packs/Day Years Used Never Smoker Smokeless Tobacco: Never Used Drinks/Week oz/Week Comments Alcohol Use No Sex Assigned at Date Recorded Not on file documented as of this encounter Last Filed Vital Signs Reading Time Taken Comments Vital Sign 130/72 12/23/2017 9:44 AM CDT Blood Pressure - - Pulse 36.6 C (97.8 F) 12/23/2017 9:44 AM CDT Temperature - - Respiratory Rate - - Oxygen Saturation - - Inhaled Oxygen Concentration 71.7 kg (158 lb) 12/23/2017 9:44 AM CDT Weight 157.5 cm (5' 2") 12/23/2017 9:44 AM CDT Height 28.9 12/23/2017 9:44 AM CDT Body Mass Index documented in this encounter Progress Notes * Radha Torres APRN - 12/23/2017 10:10 AM CDT Era Viveros is a 77 y.o. female History of Present Illness HPI Chief Complaint Patient presents with Gout left let swelling / redness this am Pt presents today for above concerns. Pt reports that in the past she gets stero id shot and this tends to take care of this. She can not take other gout medicat ion as she did not tolerate them in the past. Pt has long standing history of go ut. Review of Systems Review of Systems Constitutional: Negative for activity change, appetite change and fever. Musculoskeletal: Left foot swelling and redness started this morning. Left great toe painful and red Physical Exam Blood pressure 130/72, temperature 97.8 F (36.6 C), height 5' 2" (1.575 m), weight 71.7 kg (158 lb), not currently . Physical Exam Constitutional: She appears well-developed and well-nourished. No distress. Musculoskeletal: Left great toe erythematous and swollen. Some erythema in foot as well and pain with movement. Cap refill < 3 seconds. Skin: Skin is warm and dry. She is not diaphoretic. Psychiatric: She has a normal mood and affect. Her behavior is normal. Nursing note and vitals reviewed. ASSESSMENT: Encounter Diagnosis Name Primary? Gout, unspecified cause, unspecified chronicity, unspecified site Yes PLAN: Orders Placed This Encounter dexamethasone (DECADRON) injection 4 mg methylPREDNISolone acetate (DEPO-Medrol) injection 80 mg IM steroid- pt has tolerated in the past and per pt has worked well for her. Symptomatic care discussed F/u if symptoms worsen or fail to improve. documented in this encounter Plan of Treatment Not on filedocumented as of this encounter Visit Diagnoses Diagnosis Gout, unspecified cause, unspecified ch ronicity, unspecified site documented in this encounter Administered Medications Action Date Dose Rate Site Medication Order MAR Action 12/23/2017 10:29 AM CDT 4 mg Buttock, Left dexamethasone (DECADRON) injection 4 mg Given 4 mg, IM, ONE TIME ONLY, 1 dose, 12/23/17 at 1015, Routine 12/23/2017 10:30 AM CDT 80 mg Buttock, Left methylPREDNISolone acetate (DEPO-Medrol) Given injection 80 mg 80 mg, IM, ONE TIME ONLY, 1 dose, 12/23/17 at 1015, Routine documented in this encounter
--- OUTSIDE RECORDS SUMMARY | 2019-08-19 15:59 | XMS REPORT | Encounter Summary ---
Author Author [facility] Organization [facility] Address Unknown Phone Unavailable Care Team Providers Care Finance Teacher Name Role Phone Carlotta Aguayo MD PCP Unavailable Reason for Visit * Reason Comments Cough x4 days Chest Congestion Encounter Details Care Team Description Date Type Department Radha Torres, YAHAIRA [address] [place] [address] Acute bronchitis, unspecified organism ( Primary Dx) 09/26/[address] [facility] [place] [address] [place] [address] Social History Date Tobacco Use Types Packs/Day Years Used Never Smoker Smokeless Tobacco: Never Used Drinks/Week oz/Week Comments Alcohol Use No Sex Assigned at Date Recorded Not on file documented as of this encounter Last Filed Vital Signs Reading Time Taken Comments Vital Sign 128/60 09/26/2017 9:46 AM CDT Blood Pressure - - Pulse 37.7 C (99.8 F) 09/26/2017 9:46 AM CDT Temperature - - Respiratory Rate - - Oxygen Saturation - - Inhaled Oxygen Concentration 68.9 kg (152 lb) 09/26/2017 9:46 AM CDT Weight 152.4 cm (5') 09/26/2017 9:46 AM CDT Height 29.69 09/26/2017 9:46 AM CDT Body Mass Index documented in this encounter Progress Notes * Radha Torres, YAHAIRA - 09/26/2017 10:08 AM CDT SUBJECTIVE: Era Viveros is a 76 y.o. female who complains of congestion, sore throat an d dry cough for 4 days. She denies a history of fevers. She denies a history of asthma. Patient denies smoke cigarettes. She is not taking anything OTC for symp toms. Normal BMI Range: 18 & older: > or = 18.5 and < 25 Body mass index is 29.69 kg/m. Abnormal high BMI: Patient counseled on lifestyle modifications including weight loss and daily exercise. FALL RISK She has had no falls in the past year. OBJECTIVE: Vitals as noted above. Appearance: alert, well appearing, and in no distress. ENT- bilateral TM normal without fluid or infection, neck without nodes, pharynx erythematous without exudate and post nasal drip noted. Chest - clear to auscultation, no rales or rhonchi, symmetric air entry, mild ex piratory wheezing noted throughout. ASSESSMENT: Encounter Diagnosis Name Primary? Acute bronchitis, unspecified organism Yes PLAN: Orders Placed This Encounter predniSONE (DELTASONE) 10 mg tablet azithromycin (ZITHROMAX) 250 mg tablet Oral steroid as ordered since it is to early for shot. Antibiotic to have on should symptoms worsen over the weekend. Symptomatic therapy suggested: push fluids, rest, gargle warm salt water and use vaporizer or mist prn. Call or return to clinic prn if these symptoms worsen or fail to improve as anticipated. documented in this encounter Plan of Treatment Not on filedocumented as of this encounter Visit Diagnoses Diagnosis Acute bronchitis, unspecified organism documented in this encounter
--- OUTSIDE RECORDS SUMMARY | 2019-08-19 15:59 | XMS REPORT | Encounter Summary ---
Author Author [facility] Organization [facility] Address Unknown Phone Unavailable Care Team Providers Care Supervising Broker Name Role Phone Self, Bradly Ayala MD PCP Encounter Details Care Team Description Date Type Department Self, Bradly Ayala MD [address] [place] [address] [facility], Outpt Lab 11/18/2017 [facility] Outpatient Encounter Laboratory [address] [address] Social History Date Tobacco Use Types Packs/Day Years Used Never Smoker Smokeless Tobacco: Never Used Drinks/Week oz/Week Comments Alcohol Use No Sex Assigned at Date Recorded Not on file documented as of this encounter Medications at Time of Discharge Start Date End Date Medication Sig Dispensed Refills 11/18/2017 alendronate (FOSAMAX) 70 Take 1 Tablet [...] by 30 Tablet 5 tablet mouth daily. 11/18/2017 02/17/2018 levothyroxine 25 mcg Take 1 Tablet 30 Tablet 2 tablet (25 mcg) by mouth daily public policy coordinator. 08/05/2017 02/03/2018 metoprolol tartrate Take 1 Tab by 60 Tablet 5 (LOPRESSOR) 25 mg tablet mouth 2 times daily. 08/05/2017 02/03/2018 NIFEdipine (PROCARDIA XL) Take 1 Tab by 60 Tablet 5 30 mg Extended Release 24 mouth 2 times hour tablet daily. 06/11/2017 12/23/2017 furosemide (LASIX) 20 mg Take 1 Tab by 30 Tablet 5 tablet mouth daily. 05/16/2017 05/20/2018 gabapentin (NEURONTIN) Take 1 90 Capsule 3 300 mg Capsule (300 capsuleIndications: mg) by mouth Neuropathy daily at bedtime. documented as of this encounter Plan of Treatment Not on filedocumented as of this encounter Procedures Comments Procedure Name Priority Date/Time Associated Diag nosis CBC WITH DIFFERENTIAL Stat 11/18/2017 Acute bl ood loss anemia 8:20 AM CDT TSH Stat 11/18/2017 Essential hyper tension 8:20 AM CDT Acute blood loss anemia Post-menopausal Mixed hyperlipidemia CKD (chronic kidney disease) stage 4, GFR 15-29 ml/min Screening for thyroid disorder Hyperglycemia COMPREHENSIVE METABOLIC Stat 11/18/2017 Essent ial hypertension PANEL 8:20 AM CDT documented in this encounter Results * TSH (11/18/2017 8:20 AM CDT) TSH 8.57 (H) 0.27 - 4.20 uIU/mL [facility]ATORY SERVICES - [place] Specimen Blood Performing Organization Address City/State/Zipcode Ph one Number [facility] CLIA# [id number] KRISTA LAUREN [address] - [place] [address] [facility] * COMPREHENSIVE METABOLIC PANEL (11/18/2017 8:20 AM CDT) [facility] SODIUM 142 136 - 145 mmol/L [facility] [place] POTASSIUM 3.9 3.5 - 5.1 mmol/L [facility] [place] CHLORIDE 108 (H) 98 - 107 mmol/L [facility] [place] CO2 23 22 - 29 mmol/L [facility] [place] CALCIUM 8.8 8.8 - 10.2 mg/dL [facility] [place] BUN 19 8 - 23 mg/dL [facility] [place] CREATININE 1.76 (H) 0.51 - 0.95 mg/dL [facility] Comment: LABORATORY The GFR result is not [facility] clinically significant on [place] patients <18 or >70 years of age. GLUCOSE 101 (H) 74 - 99 mg/dL [facility] - [facility] INDU TOTAL PROTEIN 7.1 6.6 - 8.7 g/dL [facility] [place] ALBUMIN 3.9 3.5 - 5.2 g/dL [facility] [place] BILIRUBIN TOTAL 0.2 <=1.2 mg/dL [facility] - [facility] INDU ALKALINE 81 35 - 104 U/L [facility]PHAT[facility]ATORY SERVICES - [place] AST 29 <=33 U/L [facility] [place] ALT 23 10 - 35 U/L [facility] INDU GFR 28 mL/min/1.73 sq meter [facility] Comment: LABORATORY eGFR has not been validated [facility] for use in the elderly (> 70 [place] years of age), women, patients with serious [...] please refer to the GFR result. GFR, 34 mL/min/1.73 sq meter [facility] [place] ANION GAP 11 4 - 20 mmol/L [facility] [place] Specimen Blood Performing Organization Address City/State/Zipcode Ph one Number [facility] CLIA# [id number] KRISTA LAUREN [address] - [place] [address] [facility] * CBC WITH DIFFERENTIAL (11/18/2017 8:20 AM CDT) WBC 4.7 3.6 - 11.1 K/uL [facility] [place] RBC 4.50 3.78 - 5.21 M/uL [facility] [place] HEMOGLOBIN 11.0 (L) 11.1 - 15.5 g/dL [facility] [place] HEMATOCRIT 38.1 34.3 - 46.7 % [facility] [place] MCV 84.7 82.7 - 97.1 fL [facility] [place] MCH 24.4 (L) 27.1 - 32.3 pg [facility] [place] MCHC 28.9 (L) 31.3 - 34.9 g/dL [facility] [place] RDW 27.0 (H) 11.5 - 14.7 % [facility] [place] RDW-STDEV 80.8 (H) 37.2 - 47.6 fL [facility] [place] PLATELETS 260 136 - 352 K/uL [facility] [place] MPV 10.0 8.6 - 11.8 fL [facility] [place] NEUTROPHILS 57 44 - 74 % [facility] [place] LYMPHOCYTES 26 16 - 44 % [facility] [place] MONOCYTES 12 (H) 4 - 11 % [facility] [place] EOSINOPHILS 4 0 - 6 % [facility] [place] BASOPHILS 1 0 - 1 % [facility] [place] IMMATURE 0 0 - 1 % [facility] [place] NEUTROPHIL 2.67 1.54 - 7.18 K/uL [facility] [place] LYMPHOCYTE 1.20 0.69 - 3.61 K/uL [facility] [place] MONOCYTE 0.54 0.19 - 0.95 K/uL [facility] [place] EOSINOPHIL 0.18 0.00 - 0.44 K/uL [facility] [place] BASOPHILS 0.06 0.00 - 0.10 K/uL [facility] ABSOLUTE LAB[facility]ATORY [facility] - [place] IMMATURE 0.02 0.00 - 0.09 K/uL [facility] GRANULOCYTES LABORATORY ABSOLUTE SERVICES - [place] Specimen Blood Performing Organization Address City/State/Zipcode Ph one Number [facility] CLIA# [id number] KRISTA LAUREN [address] - [place] [address] documented in this encounter Visit Diagnoses Diagnosis Acute blood loss anemia Acute posthemorrhagic anemia Essential hypertension Unspecified essential hypertension Post-menopausal Asymptomatic postmenopausal status (age -related) (natural) Mixed hyperlipidemia CKD (chronic kidney disease) stage 4, G FR 15-29 ml/min Chronic kidney disease, Stage IV (sever e) Screening for thyroid disorder Hyperglycemia Other abnormal glucose documented in this encounter
--- OUTSIDE RECORDS SUMMARY | 2019-08-19 15:59 | XMS REPORT | Encounter Summary ---
Author Author [facility] Organization [facility] Address Unknown Phone Unavailable Care Team Providers Care Automatic Nailing Machine Feeder Name Role Phone Bradly Brady MD PCP Reason for Referral * Outpatient Services (Routine) Referred By Contact Referred To Contact Status Reason Specialty Diagnoses / Procedures Bradly Brady MD [address] [place] [address] Closed Diagnoses Post-menopausal Essential hypertension Acute blood loss anemia Mixed hyperlipidemia CKD (chronic kidney disease) stage 4, GFR 15-29 ml/min Screening for thyroid disorder Hyperglycemia P rocedures XR DEXA BONE DENSITY AXIAL 1 OR MORE SITES Reason for Visit * Reason Comments Establish Care transfer from [facility] Results labs Encounter Details Care Team Description Date Type Department Bradly Brady MD [address] [place] [address] Essential hypertension (Primary Dx); Acute blood loss anemia; Post-menopausal; Mixed hyperlipidemia; CKD (chronic kidney disease) stage 4, GFR 15-29 ml/min; Screening for thyroid disorder; Hyperglycemia 11/18/2017 [facility] [address] [place] [address] Social History Date Tobacco Use Types Packs/Day Years Used Never Smoker Smokeless Tobacco: Never Used Drinks/Week oz/Week Comments Alcohol Use No Sex Assigned at Date Recorded Not on file documented as of this encounter Last Filed Vital Signs Reading Time Taken Comments Vital Sign 124/72 11/18/2017 9:01 AM CDT Blood Pressure - - Pulse - - Temperature - - Respiratory Rate - - Oxygen Saturation - - Inhaled Oxygen Concentration 71.7 kg (158 lb) 11/18/2017 9:01 AM CDT Weight 152.4 cm (5') 11/18/2017 9:01 AM CDT Height 30.86 11/18/2017 9:01 AM CDT Body Mass Index documented in this encounter Progress Notes * Self, Bradly Ayala MD - 11/18/2017 9:38 AM CDT SUBJECTIVE: Era Viveros is a 76 y.o. female seen for Chief Complaint Patient presents with Establish Care transfer from [facility] Results labs REVIEW OF SYMPTOMS Constitutional neg for fever. OBJECTIVE: BP 124/72 | Ht 5' (1.524 m) | Wt 71.7 kg (158 lb) | BMI 30.86 kg/m Generally the patient appears well. HEENT is within normal limits. Cardiac exam shows S1 and S2 normal. Heart is regular in rate and rhythm. The chest is clear with no wheezes or rales. There is no lower extremity edema. Skin is warm and dry. ASSESSMENT: Encounter Diagnoses Name Primary? Essential hypertension Yes Acute blood loss anemia Post-menopausal Mixed hyperlipidemia CKD (chronic kidney disease) stage 4, GFR 15-29 ml/min Screening for thyroid disorder Hyperglycemia PLAN: Orders Placed This Encounter XR DEXA BONE DENSITY AXIAL 1 OR MORE SITES CBC with DIFFERENTIAL (STAT) COMPREHENSIVE METABOLIC PANEL CMP (3 MONTHS X 1) LIPID PANEL (3 MONTHS X 1) HEMOGLOBIN A1C (3 MONTHS X 1) TSH (3 MONTHS X 1) CBC WITH DIFFERENTIAL (3 MONTHS X 1) Patient is established with me. dexa today GFR stable hgb up again after July PBCs The other chronic problems listed above are reviewed and deemed stable at today' s visit. The plan of care is reviewed in detail with the patient at today's visit. An Af ter Visit Summary (AVS) is also printed for the patient. All concerns are disc ussed with the patient and all questions are fully answered. SCREENING: The 10-year ASCVD risk score ([place] CRUZ Jr., et al., 2013) is: 22.2% Values used to calculate the score: Age: 76 years Sex: Female Is Non- : No Diabetic: No Tobacco smoker: No Systolic Blood Pressure: 124 mmHg Is BP treated: Yes HDL Cholesterol: 67 mg/dL Total Cholesterol: 204 mg/dL Tobacco Intervention She is not a [...] modifications including weight loss and daily exercise. documented in this encounter Plan of Treatment Not on filedocumented as of this encounter Results * CBC WITH DIFFERENTIAL (02/17/2018 8:37 AM WINDOW DECORATOR) WBC 4.5 3.6 - 11.1 K/uL [facility] [place] RBC 4.91 3.78 - 5.21 M/uL [facility] HEMOGLOBIN 13.8 11.1 - 15.5 g/dL [facility] HEMATOCRIT 44.2 34.3 - 46.7 % [facility] MCV 90.0 82.7 - 97.1 fL [facility] [place] MCH 28.1 27.1 - 32.3 pg [facility] MCHC 31.2 (L) 31.3 - 34.9 g/dL [facility] RDW 14.3 11.5 - 14.7 % [facility] RDW-STDEV 46.7 37.2 - 47.6 fL [facility] PLATELETS 211 136 - 352 K/uL [facility] MPV 10.7 8.6 - 11.8 fL [facility] [...] [place] LYMPHOCYTE 1.10 0.69 - 3.61 K/uL [facility] [place] [facility] MONOCYTE 0.53 0.19 - 0.95 K/uL [facility] [place] EOSINOPHIL 0.08 0.00 - 0.44 K/uL [facility] [place] BASOPHILS 0.04 0.00 - 0.10 K/uL [facility] [place] IMMATURE 0.01 0.00 - 0.09 K/uL [facility]OL[facility] - [place] Specimen Blood Performing Organization Address City/[facility]/[place] Ph one [facility] LABORATORY SERVICES CLIA# [id number] KRISTA LAUREN [address] - [place] [address] * HEMOGLOBIN A1C (02/17/2018 8:37 AM WINDOW DECORATOR) HEMOGLOBIN A1C 5.9 4.8 - 5.9 % [facility] [place] EST. AVG 123 mg/dL [facility] GLUCOSE, A1C LABORATORY SERVICES - [place] Specimen Blood Narrative Performed At HGB A1C INTERPRETATION [facility] LABORATORY NORMAL: <5.7% SERVICES - [place] PRE-DIABETES: 5.7 - 6.4% INDU DIABETES: 6.5% OR GREATER Performing Organization Address City/[facility] one [facility] LABORATORY SERVICES CLIA# [id number] [place] [address] - [address] * LIPID PANEL (02/17/2018 8:37 AM WINDOW DECORATOR) CHOLESTEROL 227 (H) <200 mg/dL [facility] TRIGLYCERIDE 108 <150 mg/dL [facility] - [place] HDL 71 (H) 40 - 59 mg/dL [facility] LDL CALCULATED 134 (H) <100 mg/dL [facility] [place] NON-HDL 156 (H) <130 mg/dL [facility] CHOLESTEROL [facility] - [place] [facility] Specimen Blood Narrative Performed At TOTAL CHOLESTEROL mg/dL [facility] LAB[facility] Desirable <200 SERVICES - [facility] Borderline high 200-239 INDU High >=240 TRIGLYCERIDES [...] Performing Organization Address City/State/Zipcode Ph one Number [facility] SERVICES CLIA# [id number] [place] [address] - [place] [address] * COMPREHENSIVE METABOLIC PANEL (02/17/2018 8:37 AM WINDOW DECORATOR) [facility] SODIUM 143 136 - 145 mmol/L [facility] [place] POTASSIUM 4.4 3.5 - 5.1 mmol/L [facility] [place] CHLORIDE 107 98 - 107 mmol/L [facility] [place] CO2 26 22 - 29 mmol/L [facility] [place] CALCIUM 8.9 8.8 - 10.2 mg/dL [facility] BUN 15 8 - 23 mg/dL [facility] LABORATORY SERVICES - [facility] INDU CREATININE 1.52 (H) 0.51 - 0.95 mg/dL [facility] Comment: LABORATORY The GFR result is not SERVICES - [facility] clinically significant on MONTROSE patients <18 or >70 years of age. [...] [place] GFR 33 mL/min/1.73 sq meter [facility] Comment: LABORATORY eGFR has not been validated [facility] - [facility] for use in the elderly (> 70 INDU years of age), women, patients with serious [...] GFR result. GFR, 40 mL/min/1.73 sq meter [facility] - [place] ANION GAP 10 4 - 20 mmol/L [facility] [employer] [facility] [place] Specimen Blood Performing Organization Address City/State/[facility] Ph one Number [facility] SERVICES CLIA# [id number] [place], [place] [address] - [place] [address] * XR DEXA BONE DENSITY AXIAL 1 OR MORE SITES (11/18/2017 11:23 AM CDT) Specimen Impressions Performed At Impression: INTERFACE SYSTEM Normal range BMD in lumbar spine. Osteopenic range BMD left hip. Narrative Performed At History: See Diagnosis Post-menopausal; Essential hyp ertension; Acute INTERFACE SYSTEM blood loss anemia; Mixed hyperlipidemia ; CKD (chronic kidney disease) stage 4, GFR 15-29 ml/min; Screening fo r thyroid disorder; Hyperglycemia Comparison: None Technique: Bone density study of the maile mbar spine and bilateral hips. Findings: Lumbar spine: Total bone density L1-L4: 1.040 g/cm2 T-score: -0.1 Left hip: Total bone density: 0.671 g/cm2 T-score: -2.2 World Health Organization (WHO) criteri a for postmenopausal, women: Normal: T-score at or above -1 SD (low risk for fracture.) Osteopenia: T-score between -1 and - 2.5 SD (moderate risk for fracture.) Osteoporosis: T-score at or below -2.5 SD (High risk for fracture.) Procedure Note Srikanth, Tyrone Aok Incoming Radiology Results - 11/18/2017 1:07 PM CDT History: See Diagnosis Post-menopausal; Essential hypertension; Acute blood loss anemia; Mixed hyperlipidemia; CKD (chronic kidney disease) stage 4, GFR 15-29 ml/min; Screening for thyroid disorder; Hyperglycemia Comparison: None Technique: Bone density study of the lumbar spine and bilateral hips. Findings: Lumbar spine: Total bone density L1-L4: 1.040 g/cm2 T-score: -0.1 Left hip: Total bone density: 0.671 g/cm2 T-score: -2.2 World Health Organization (WHO) criteria for postmenopausal, women: Normal: T-score at or above -1 SD (low risk for fracture.) Osteopenia: T-score between -1 and -2.5 SD (moderate risk for fracture.) Osteoporosis: T-score at or below -2.5 SD (High risk for fracture.) Impression: Normal range BMD in lumbar spine. Osteopenic range BMD left hip. Performing Organization Address City/[facility] Ph one Number INTERFACE SYSTEM INTERFACE SYSTEM Refer to clinic/hospital department * TSH (11/18/2017 8:20 AM CDT) TSH 8.57 (H) 0.27 - 4.20 uIU/mL [facility] [place] Specimen Blood Performing Organization Address [facility] Ph one Number [facility] SERVICES CLIA# [id number] [place] [address] - [place] [address] [place] [address] * COMPREHENSIVE METABOLIC PANEL (11/18/2017 8:20 AM CDT) SODIUM 142 136 - 145 mmol/L [facility] [place] POTASSIUM 3.9 3.5 - 5.1 mmol/L [facility] [place] [facility] CHLORIDE 108 (H) 98 - 107 mmol/L [facility] [place] [facility] CO2 23 22 - 29 mmol/L [facility] [place] [facility] CALCIUM 8.8 8.8 - 10.2 mg/dL [facility] [place] [facility] BUN 19 8 - 23 mg/dL [facility] [place] CREATININE 1.76 (H) 0.51 - 0.95 mg/dL [facility] Comment: LABORATORY The GFR result is not SERVICES - [facility] clinically significant on INDU patients <18 or >70 years of age. GLUCOSE 101 (H) 74 - 99 mg/dL [facility] TOTAL PROTEIN 7.1 6.6 - 8.7 g/dL [facility] [place] ALBUMIN 3.9 3.5 - 5.2 g/dL [facility] [place] [facility] BILIRUBIN TOTAL 0.2 <=1.2 mg/dL [facility] [place] [facility] ALKALINE 81 35 - 104 U/L [facility] PHOSPHATASE LABORATORY SERVICES - [place] AST 29 <=33 U/L [facility] - [place] ALT 23 10 - 35 U/L [facility] - [place] GFR 28 mL/min/1.73 sq meter [facility] Comment: LABORATORY eGFR has not been validated [facility] for use in the elderly (> 70 INDU years of age), women, patients with serious [...] GFR result. GFR, 34 mL/min/1.73 sq meter [facility] [place] ANION GAP 11 4 - 20 mmol/L [facility] LABORATORY [facility] [place] Specimen Blood Performing Organization Address City/State/Zipcode Ph one Number [facility] SERVICES CLIA# [id number] [place] [address] - [place] [address] [facility] * CBC WITH DIFFERENTIAL (11/18/2017 8:20 AM CDT) WBC 4.7 3.6 - 11.1 K/uL [facility] - [place] RBC 4.50 3.78 - 5.21 M/uL [facility] [place] HEMOGLOBIN 11.0 (L) 11.1 - 15.5 g/dL [facility] LAB[facility]ATORY [facility] [place] HEMATOCRIT 38.1 34.3 - 46.7 % [facility] [place] MCV 84.7 82.7 - 97.1 fL [facility] - [place] MCH 24.4 (L) 27.1 - 32.3 pg [facility] - [place] MCHC 28.9 (L) 31.3 - 34.9 g/dL [facility] - [place] RDW 27.0 (H) 11.5 - 14.7 % [facility] - [place] RDW-STDEV 80.8 (H) 37.2 - 47.6 fL [facility] SERVICES - [place] PLATELETS 260 136 - 352 K/uL [facility] - [place] MPV 10.0 8.6 - 11.8 fL [facility] [place] [facility] NEUTROPHILS 57 [...] [place] BASOPHILS 0.06 0.00 - 0.10 K/uL [facility] [place] IMMATURE 0.02 0.00 - 0.09 K/uL [facility] ABSOLUTE [facility] - [place] Specimen Blood Performing Organization Address City/State/Zipcode Ph one Number [facility] CLIA# [id number] [place] [address] - [place] [address] [place] [address] BLVD documented in this encounter Visit Diagnoses Diagnosis Essential hypertension Unspecified essential hypertension Acute blood loss anemia Acute posthemorrhagic anemia Post-menopausal Asymptomatic postmenopausal status (age -related) (natural) Mixed hyperlipidemia CKD (chronic kidney disease) stage 4, G FR 15-29 ml/min Chronic kidney disease, Stage IV (sever e) Screening for thyroid disorder Hyperglycemia Other abnormal glucose documented in this encounter"
--- OUTSIDE RECORDS SUMMARY | 2019-08-19 15:59 | XMS REPORT | Encounter Summary ---
Author Author [facility] Organization [facility] Address Unknown Phone Unavailable Care Team Providers Care Supervisor Component Assembler Name Role Phone SelfBradly MD PCP Reason for Referral * Outpatient Services (Routine) Referred By Contact Referred To Contact Status Reason Specialty Diagnoses / Procedures SelfBradly MD [address] [place] [phone] Closed Diagnoses Post-menopausal Essential hypertension Acute blood loss anemia Mixed hyperlipidemia CKD (chronic kidney disease) stage 4, GFR 15-29 ml/min Screening for thyroid disorder Hyperglycemia P rocedures XR DEXA BONE DENSITY AXIAL 1 OR MORE SITES Reason for Visit * Outpatient Services (Routine) Referred By Contact Referred To Contact Status Reason Specialty Diagnoses / Procedures Bradly Brady MD [address] [place] [phone] Closed Diagnoses Post-menopausal Essential hypertension Acute blood loss anemia Mixed hyperlipidemia CKD (chronic kidney disease) stage 4, GFR 15-29 ml/min Screening for thyroid disorder Hyperglycemia P rocedures XR DEXA BONE DENSITY AXIAL 1 OR MORE SITES Encounter Details Care Team Description Date Type Department Bradly Brady MD [address] [place] [phone] 11/18/2017 [facility] rvices Encounter [address] [phone] Social History Date Tobacco Use [...] 2 tablet (25 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 08/05/2017 02/03/2018 metoprolol tartrate Take 1 Tab [...] Procedure Name Priority Date/Time Associated Diag nosis XR DEXA BONE DENSITY Routine 11/18/2017 Post-antoine pausal AXIAL 1 OR MORE SITES 11:23 AM CDT Essential hyper tension Acute blood loss anemia Mixed hyperlipidemia CKD (chronic kidney disease) stage 4, GFR 15-29 ml/min Screening for thyroid disorder Hyperglycemia documented in this encounter Results * XR DEXA BONE DENSITY AXIAL 1 [...] SD (High risk for fracture.) Procedure Note Tyrone Duke Incoming Radiology Results - 11/18/2017 1:07 PM [...] range BMD left hip. Performing Organization Address City/State/[place] Ph one Number INTERFACE SYSTEM INTERFACE SYSTEM Refer to clinic/hospital department documented in this encounter Visit Diagnoses Diagnosis Post-menopausal Asymptomatic postmenopausal status (age -related) (natural) Essential hypertension Unspecified essential hypertension Acute blood loss anemia Acute posthemorrhagic anemia Mixed hyperlipidemia CKD (chronic kidney disease) stage 4, G FR 15-29 ml/min Chronic kidney disease, Stage IV (sever e) Screening for thyroid disorder Hyperglycemia Other abnormal glucose documented in this encounter
--- OUTSIDE RECORDS SUMMARY | 2019-08-19 15:59 | XMS REPORT | Encounter Summary ---
Author Author [facility] Organization [facility] Address Unknown Phone Unavailable Care Team Providers Care Department Of Sociology Chair Name Role Phone Self, Bradly Ayala MD PCP Encounter Details Care Team Description Date Type Department Carlotta Aguayo MD NO ADDRESS ON FILE Ftsc, Outpt Lab 10/16/2017 [facility] Outpatient Encounter Laboratory [address] [phone] Social History Date Tobacco Use Types Packs/Day Years Used Never Smoker Smokeless Tobacco: Never Used Drinks/Week oz/Week Comments Alcohol Use No Sex Assigned at Date Recorded Not on file documented as of this encounter Medications at Time of Discharge Start Date End Date Medication Sig Dispensed Refills 10/16/2017 pantoprazole (PROTONIX) Take 1 Tablet 90 [...] Capsule mouth 2 times daily OMEGA RED. 08/05/2017 02/03/2018 metoprolol tartrate Take 1 Tab by 60 Tablet 5 (LOPRESSOR) 25 mg tablet mouth 2 times daily. 08/05/2017 02/03/2018 NIFEdipine (PROCARDIA XL) Take 1 Tab by 60 Tablet 5 30 mg Extended Release 24 mouth 2 times hour tablet daily. 06/11/2017 12/23/2017 furosemide (LASIX) 20 mg Take 1 Tab by 30 Tablet 5 tablet mouth daily. 05/28/2017 11/18/2017 raloxifene (EVISTA) 60 mg Take 1 Tab by 30 Tablet 5 tablet mouth daily. 05/16/2017 05/20/2018 gabapentin (NEURONTIN) Take 1 90 Capsule 3 300 mg Capsule (300 capsuleIndications: mg) by mouth Neuropathy daily at bedtime. documented as of this encounter Plan of Treatment Not on filedocumented as of this encounter Procedures Comments Procedure Name Priority Date/Time Associated Diag nosis CBC WITH DIFFERENTIAL Stat 10/16/2017 Acute bl ood loss anemia 7:46 AM CDT COMPREHENSIVE METABOLIC Stat 10/16/2017 [facility] ia hypertension PANEL 7:46 AM CDT documented in this encounter Results * COMPREHENSIVE METABOLIC PANEL (10/16/2017 7:46 AM CDT) SODIUM 142 136 - 145 mmol/L [facility] - [facility] INDU POTASSIUM 4.6 3.5 - 5.1 mmol/L [facility] - [facility] INDU CHLORIDE 106 98 - 107 mmol/L [facility] - [place] CO2 22 22 - 29 mmol/L [facility] SERVICES - [facility] INDU CALCIUM 9.1 8.8 - 10.2 mg/dL [facility] SERVICES - [facility] INDU BUN 20 8 - 23 mg/dL [facility] SERVICES - [facility] INDU CREATININE 1.95 (H) 0.51 - 0.95 mg/dL [facility] Comment: LABORATORY The GFR result is not SERVICES - [facility] clinically significant on [place]IS[place] patients <18 or >70 years of age. GLUCOSE 124 (H) 74 - 99 mg/dL [facility] SERVICES - [facility] INDU TOTAL PROTEIN 7.5 6.6 - 8.7 g/dL [facility] SERVICES - [facility] INDU ALBUMIN 3.9 3.5 - 5.2 g/dL [facility] - [place] BILIRUBIN TOTAL 0.3 <=1.2 mg/dL [facility] SERVICES - [place] ALKALINE 87 35 - 104 U/L [facility] PHOSPHATASE LABORATORY SERVICES - [place] AST 31 <=33 U/L [facility] - [place] ALT 27 10 - 35 U/L [facility] - [place] GFR 25 mL/min/1.73 sq meter [facility] Comment: LABORATORY eGFR has not been validated [facility] for use in the elderly (> [...] please refer to the GFR result. GFR, 30 mL/min/1.73 sq meter [facility]ATORY SERVICES - [place] ANION GAP 14 4 - 20 mmol/L [facility] LAB[facility] Specimen Blood Performing Organization Address City/State/Zipcode Ph one Number [facility] CLIA# [id number] [place] [address] - [place] [address] [place] [address] * CBC WITH DIFFERENTIAL (10/16/2017 7:46 AM CDT) WBC 4.9 3.6 - 11.1 K/uL [facility] [place] RBC 4.62 3.78 - 5.21 M/uL [facility] [place] HEMOGLOBIN 9.6 (L) 11.1 - 15.5 g/dL [facility] - [place] HEMATOCRIT 34.0 (L) 34.3 - 46.7 % [facility] [place] MCV 73.6 (L) 82.7 - 97.1 fL [facility] [place] MCH 20.8 (L) 27.1 - 32.3 pg [facility] [place] MCHC 28.2 (L) 31.3 - 34.9 g/dL [facility] [place] RDW 20.1 (H) 11.5 - 14.7 % [facility] [place] RDW-STDEV 51.8 (H) 37.2 - 47.6 fL [facility] [place] PLATELETS 282 136 - 352 K/uL [facility] [place] MPV 9.8 8.6 - 11.8 fL [facility] [place] NEUTROPHILS 62 44 - 74 % [facility] [place] LYMPHOCYTES 24 16 - 44 % [facility] [place] MONOCYTES 11 4 - 11 % [facility] [place] EOSINOPHILS 2 0 - 6 % [facility] [place] BASOPHILS 1 0 - 1 % [facility] [place] IMMATURE 0 0 - 1 % [facility] - [place] NEUTROPHIL 3.01 1.54 - 7.18 K/uL [facility] [place] LYMPHOCYTE 1.19 0.69 - 3.61 K/uL [facility] [place] MONOCYTE 0.52 0.19 - 0.95 K/uL [facility] [place] EOSINOPHIL 0.11 0.00 - 0.44 K/uL [facility] [place] BASOPHILS 0.05 0.00 - 0.10 K/uL [facility] [place] IMMATURE 0.01 0.00 - 0.09 K/uL [facility] ABSOLUTE SERVICES - [place] Specimen Blood Performing Organization Address City/State/Zipcode Ph one Number [facility] CLIA# [id number] [place] [address] - [place] [address] [place] [address] BLVD documented in this encounter Visit Diagnoses Diagnosis Acute blood loss anemia Acute posthemorrhagic anemia Essential hypertension Unspecified essential hypertension documented in this encounter
--- OUTSIDE RECORDS SUMMARY | 2019-08-19 15:59 | XMS REPORT | Encounter Summary ---
Author Author [facility] Organization [facility] Address Unknown Phone Unavailable Care Team Providers Care Spout Liner Helper Name Role Phone Carlotta Aguayo MD PCP Unavailable Reason for Visit * Reason Comments Follow Up 1 mo Results lab Medication Question protonix does pt need to re fill it Medication Question does pt need to take aspiri n Foot Swelling bilat, chronic Leg Pain right, x6 mo Medication Question does evista have anything t o do with swelling Encounter Details Care Team Description Date Type Department Carlotta Aguayo MD NO ADDRESS ON FILE Other hyperlipidemia (Primary Dx); Essential hypertension; Acute blood loss anemia; Gastritis, presence of bleeding unspecified, unspecified chronicity, unspecified gastritis type 09/16/2017 Office Visit [address] [address] Social History Date Tobacco Use Types Packs/Day Years Used Never Smoker Smokeless Tobacco: Never Used Drinks/Week oz/Week Comments Alcohol Use No Sex Assigned at Date Recorded Not on file documented as of this encounter Last Filed Vital Signs Reading Time Taken Comments Vital Sign 104/66 09/16/2017 9:26 AM CDT Blood Pressure - - Pulse 37.3 C (99.1 F) 09/16/2017 9:26 AM CDT Temperature - - Respiratory Rate - - Oxygen Saturation - - Inhaled Oxygen Concentration 70.8 kg (156 lb) 09/16/2017 9:26 AM CDT Weight 152.4 cm (5') 09/16/2017 9:26 AM CDT Height 30.47 09/16/2017 9:26 AM CDT Body Mass Index documented in this encounter Progress Notes * Carlotta Aguayo MD - 09/19/2017 8:13 AM CDT HISTORY OF PRESENT ILLNESS Era Viveros, a 76 y.o. female presents with a Chief Complaint of Follow Up (1 mo); Results (lab); Medication Question (protonix does pt need to refill it); Medication Question (does pt need to take aspirin); Foot Swelling (bilat, chron ic); Leg Pain (right, x6 mo); and Medication Question (does evista have anything to do with swelling) Subjective Results Associated symptoms include fatigue and weakness. Pertinent negatives include no chills, congestion, coughing, fever or headaches. Foot Swelling Associated symptoms include fatigue and weakness. Pertinent negatives include no chills, congestion, coughing, fever or headaches. Leg Pain Associated symptoms: fatigue Associated symptoms: no back pain and no fever here with follow up recent gastritis and PUD with acute upper gi bleed and anem ia, doing well. follow up hypertension and lipid issues. REVIEW OF SYSTEMS Review of Systems Constitutional: Positive for fatigue. Negative for activity change, appetite tram nge, chills, fever and unexpected weight change. HENT: Negative for congestion. Eyes: Negative for visual disturbance. Respiratory: Negative for cough. Genitourinary: Negative for menstrual problem. Musculoskeletal: Negative for back pain. Neurological: Positive for weakness. Negative for headaches. Objective PHYSICAL EXAM BP 104/66 | Temp 99.1 F (37.3 C) | Ht 5' (1.524 m) | Wt 70.8 kg (156 lb) | BMI 30.47 kg/m Physical Exam Constitutional: She is oriented to person, place, and time. She appears well-dev eloped and well-nourished. HENT: Head: Normocephalic and atraumatic. Right Ear: External ear normal. Left Ear: External ear normal. Mouth/Throat: Oropharynx is clear and moist. Eyes: Conjunctivae and EOM are normal. Pupils are equal, round, and reactive to light. Neck: Normal range of motion. Neck supple. Cardiovascular: Normal rate, regular rhythm, normal heart sounds and intact dist al pulses. Pulmonary/Chest: Effort normal and breath sounds normal. Abdominal: Soft. Bowel sounds are normal. Musculoskeletal: Normal range of motion. Neurological: She is alert and oriented to person, place, and time. Skin: Skin is warm and dry. Nursing note and vitals reviewed. Lab Results Component Value Date/Time WBC 6.0 09/16/2017 08:27 AM HGB 8.9 (L) 09/16/2017 08:27 AM HCT 30.2 (L) 09/16/2017 08:27 AM PLT 308 09/16/2017 08:27 AM MCV 74.0 (L) 09/16/2017 08:27 AM Lab Results Component Value Date/Time NA 144 09/16/2017 08:27 AM K 4.0 09/16/2017 08:27 AM CL 105 09/16/2017 08:27 AM CO2 21 (L) 09/16/2017 08:27 AM CA 8.9 09/16/2017 08:27 AM BUN 21 09/16/2017 08:27 AM CREAT 1.70 (H) 09/16/2017 08:27 AM GLUCOSE 119 (H) 09/16/2017 08:27 AM TOTALPROTEIN 7.2 09/16/2017 08:27 AM ALBUMIN 3.8 09/16/2017 08:27 AM BILITOTAL 0.2 09/16/2017 08:27 AM ALKPHOS 90 09/16/2017 08:27 AM AST 21 09/16/2017 08:27 AM ALT 21 09/16/2017 08:27 AM ANIONGAP 18 09/16/2017 08:27 AM BCRATIO 13.5 03/06/2012 07:50 AM Procedures Assessment ASSESSMENT and PLAN: ICD-10-CM ICD-9-CM 1. Other hyperlipidemia E78.4 272.4 COMPREHENSIVE METABOLIC PANEL LIPID PANEL 2. Essential hypertension I10 401.9 COMPREHENSIVE METABOLIC PANEL LIPID PANEL COMPREHENSIVE METABOLIC PANEL 3. Acute blood loss anemia D62 285.1 CBC WITH DIFFERENTIAL CBC WITH DIFFERENTIAL 4. Gastritis, presence of bleeding unspecified, unspecified chronicity, unspecif ied gastritis type K29.70 535.50 pantoprazole (PROTONIX) 40 mg Tablet, Delayed R elease (E.C.) Current Outpatient Prescriptions: pantoprazole (PROTONIX) 40 mg Tablet, Delayed Release (E.C.), Take 1 Tablet (40 mg) by mouth daily before breakfast., Disp: 20 Tablet, Rfl: 3 metoprolol tartrate (LOPRESSOR) 25 mg tablet, Take 1 Tab by mouth 2 times d aily., Disp: 60 Tablet, Rfl: 5 NIFEdipine (PROCARDIA XL) 30 mg Extended Release 24 hour tablet, Take 1 Tab by mouth 2 times daily., Disp: 60 Tablet, Rfl: 5 HYDROcodone-acetaminophen (NORCO) 5-325 mg tablet, Take 1 Tablet by mouth e very 4 hours as needed for Pain, Moderate., Disp: 120 Tablet, Rfl: 0 dicyclomine (BENTYL) 20 mg tablet, Take 1 Tab by mouth 4 times daily before meals and at bedtime., Disp: 120 Tablet, Rfl: 5 furosemide (LASIX) 20 mg tablet, Take 1 Tab by mouth daily., Disp: 30 Table t, Rfl: 5 raloxifene (EVISTA) 60 mg tablet, Take 1 Tab by mouth daily., Disp: 30 Tabl et, Rfl: 5 gabapentin (NEURONTIN) 300 mg capsule, Take 1 Capsule (300 mg) by mouth amirah ly at bedtime., Disp: 90 Capsule, Rfl: 3 ALPRAZolam (XANAX) 0.25 mg tablet, Take 1 Tablet (0.25 mg) by mouth 3 times daily as needed for Anxiety., Disp: 90 Tablet, Rfl: 3 0mega-3 fatty acids-vitamin E (FISH OIL) 1,000 mg Capsule, Take 2 Capsules by mouth 2 times daily OMEGA RED. , Disp: , Rfl: documented in this encounter Plan of Treatment Not on filedocumented as of this encounter Results * COMPREHENSIVE METABOLIC PANEL (10/16/2017 7:46 AM CDT) [facility] SODIUM 142 136 - 145 mmol/L [facility] LABORATORY SERVICES - [facility] POTASSIUM 4.6 3.5 - 5.1 mmol/L [facility] LABORATORY SERVICES - [facility] CHLORIDE 106 98 - 107 mmol/L [facility] LABORATORY SERVICES - [facility] INDU CO2 22 22 - 29 mmol/L [facility] LABORATORY SERVICES - [facility] INDU CALCIUM 9.1 8.8 - 10.2 mg/dL [facility] LABORATORY SERVICES - [facility] IN[facility] BUN 20 8 - 23 mg/dL [facility] LABORATORY SERVICES - [facility] IN[facility] CREATININE 1.95 (H) 0.51 - 0.95 mg/dL [facility] Comment: LABORATORY The GFR result is not SERVICES - [place] clinically significant on [place] patients <18 or >70 years of age. GLUCOSE 124 (H) 74 - 99 mg/dL [facility] LABORATORY SERVICES - [facility] TOTAL PROTEIN 7.5 6.6 - 8.7 g/dL [facility] LABORATORY SERVICES - [place] ALBUMIN 3.9 3.5 - 5.2 g/dL [facility] LABORATORY SERVICES - [place] BILIRUBIN TOTAL 0.3 <=1.2 mg/dL [facility] LABORATORY SERVICES - [place] ALKALINE 87 35 - 104 U/L [facility] PHOSPHATASE LABORATORY SERVICES - [place] AST 31 <=33 U/L [facility]ATORY SERVICES - [place] ALT 27 10 - 35 U/L [facility]ORATORY SERVICES - [place] GFR 25 mL/min/1.73 sq meter [facility] Comment: LABORATORY eGFR has not been validated [facility] for use in the elderly (> [...] GFR result. GFR, 30 mL/min/1.73 sq meter [facility]ORIAN LABORATORY SERVICES - [place] ANION GAP 14 4 - 20 mmol/L [facility] LABORATORY [facility] Specimen Blood Performing Organization Address City/State/[facility] Ph one Number [facility] LABORATORY SERVICES CLIA# [id number] [place], [place] [address] - [place] [address] [place] [address] * CBC WITH DIFFERENTIAL (10/16/2017 7:46 AM CDT) WBC 4.9 3.6 - 11.1 K/uL [facility]ORATORY SERVICES - [place] RBC 4.62 3.78 - 5.21 M/uL [facility]ATORY SERVICES - [place] HEMOGLOBIN 9.6 (L) 11.1 - 15.5 g/dL [facility] LABORATORY SERVICES - [place] HEMATOCRIT 34.0 (L) 34.3 - 46.7 % [facility]ATORY SERVICES - [place] MCV 73.6 (L) 82.7 - 97.1 fL [facility] LABORATORY SERVICES [place] MCH 20.8 (L) 27.1 - 32.3 pg [facility] - [place] MCHC 28.2 (L) 31.3 - 34.9 g/dL [facility] - [place] RDW 20.1 (H) 11.5 - 14.7 % [facility] - [place] RDW-STDEV 51.8 (H) 37.2 - 47.6 fL [facility] - [place] PLATELETS 282 136 - 352 K/uL [facility] - [place] MPV 9.8 8.6 - 11.8 fL [facility] - [place] NEUTROPHILS 62 44 - 74 % [facility] - [place] LYMPHOCYTES 24 16 - 44 % [facility] - [place] MONOCYTES 11 4 - 11 % [facility] [place] EOSINOPHILS 2 0 - 6 % [facility] [...] Performing Organization Address City/State/Zipcode Ph one Number [facility] LAB[facility]ATORY SERVICES CLIA# [id number] [place] [address] - [place] [address] [place], [place] [address] * LIPID PANEL (09/16/2017 8:27 AM CDT) CHOLESTEROL 204 (H) <200 mg/dL [facility] - [place] TRIGLYCERIDE 89 <150 mg/dL [facility] [place] HDL 67 (H) 40 - 59 mg/dL [facility] [place] LDL CALCULATED 119 (H) <100 mg/dL [facility] - [place] NON-HDL 137 (H) <130 mg/dL [facility] CHOLESTEROL LABORATORY SERVICES - [place] Specimen Blood Narrative Performed At TOTAL CHOLESTEROL mg/dL [facility] LABORATORY Desirable <200 SERVICES - [facility] Borderline high 200-239 [place] High >=240 TRIGLYCERIDES mg/dL Normal <150 Borderline [...] for Lipid Panels (NCEP/AMA) Performing Organization Address [facility] one [facility] LABORATORY SERVICES CLIA# [id number] [place] [address] - [address] * URIC ACID (09/16/2017 8:27 AM CDT) Pathologist [facility] URIC ACID 8.9 (H) 2.4 - 5.7 mg/dL [facility]ATORY SERVICES - [place] Specimen Blood Performing Organization Address [facility] one [facility] LABORATORY SERVICES CLIA# [id number] [place] [address] - [address] * COMPREHENSIVE METABOLIC PANEL (09/16/2017 8:27 AM CDT) Pathologist [facility] SODIUM 144 136 - 145 mmol/L [facility] LAB[facility]ATORY SERVICES - [place] POTASSIUM 4.0 3.5 - 5.1 mmol/L [facility] LABORATORY SERVICES - [place] CHLORIDE 105 98 - 107 mmol/L [facility]ATORY SERVICES - [place] CO2 21 (L) 22 - 29 mmol/L [facility] LAB[facility]ATORY SERVICES - [place] CALCIUM 8.9 8.8 - 10.2 mg/dL [facility] LAB[facility]ATORY SERVICES - [place] BUN 21 8 - 23 mg/dL [facility] LABORATORY SERVICES - [place] CREATININE 1.70 (H) 0.51 - 0.95 mg/dL [facility] Comment: LABORATORY The GFR result is not SERVICES - [facility] clinically significant on [place] patients <18 or >70 years of age. GLUCOSE 119 (H) 74 - 99 mg/dL [facility] LABORATORY SERVICES - [place] TOTAL PROTEIN 7.2 6.6 - 8.7 g/dL [facility] LABORATORY SERVICES - [place] ALBUMIN 3.8 3.5 - 5.2 g/dL [facility] LABORATORY SERVICES - [place] BILIRUBIN TOTAL 0.2 <=1.2 mg/dL [facility] LABORATORY SERVICES - [facility] INDU ALKALINE 90 35 - 104 U/L [facility] PHOSPHATASE LABORATORY SERVICES - [place] AST 21 <=33 U/L [facility] LABORATORY SERVICES - [place] ALT 21 10 - 35 U/L [facility] LABORATORY SERVICES - [place] GFR 29 mL/min/1.73 sq meter [facility] Comment: LABORATORY eGFR has not been validated [facility] for use in the elderly (> [...] please refer to the GFR result. GFR, 35 mL/min/1.73 sq meter [facility] LABORATORY SERVICES - [place] ANION GAP 18 4 - 20 mmol/L [facility] LABORATORY [facility] Specimen Blood Performing Organization Address City/State/[facility] Ph one Number [facility] LABORATORY SERVICES CLIA# [id number] [place], [place] [address] - [place] [address] [facility] * CBC WITH DIFFERENTIAL (09/16/2017 8:27 AM CDT) WBC 6.0 3.6 - 11.1 K/uL [facility] LABORATORY SERVICES - [place] RBC 4.08 3.78 - 5.21 M/uL [facility] LABORATORY [facility] - [place] HEMOGLOBIN 8.9 (L) 11.1 - 15.5 g/dL [facility] LABORATORY SERVICES - [place] HEMATOCRIT 30.2 (L) 34.3 - 46.7 % [facility] LABORATORY SERVICES [facility] MCV 74.0 (L) 82.7 - 97.1 fL [facility] LABORATORY SERVICES - [place] MCH 21.8 (L) 27.1 - 32.3 pg [facility] LABORATORY SERVICES [place] MCHC 29.5 (L) 31.3 - 34.9 g/dL [facility] LABORATORY SERVICES - [place] RDW 18.1 (H) 11.5 - 14.7 % [facility] LABORATORY SERVICES [facility] INDU RDW-STDEV 48.1 (H) 37.2 - 47.6 fL [facility] - [place] PLATELETS 308 136 - 352 K/uL [facility] - [place] MPV 9.5 8.6 - 11.8 fL [facility] [place] NEUTROPHILS 69 44 - 74 % [facility] [place] LYMPHOCYTES 17 16 - 44 % [facility] [place] MONOCYTES 11 4 - 11 % [facility] [place] EOSINOPHILS 2 0 - 6 % [facility] [place] BASOPHILS 1 0 - 1 % [facility] [place] IMMATURE 0 0 - 1 % [facility] GRANULOC[facility] - [place] NEUTROPHIL 4.13 1.54 - 7.18 K/uL [facility] - [place] LYMPHOCYTE 1.01 0.69 - 3.61 K/uL [facility] - [place] MONOCYTE 0.67 0.19 - 0.95 K/uL [facility] - [place] EOSINOPHIL 0.14 0.00 - 0.44 K/uL [facility] - [place] BASOPHILS 0.06 0.00 - 0.10 K/uL [facility] - [place] IMMATURE 0.02 0.00 - 0.09 K/uL [facility] GRANULOCYTES [facility] ABSOLUTE SERVICES - [place] Specimen Blood Performing Organization Address City/State/Zipcode Ph one Number [facility] CLIA# [id number] [place] [address] - [place] [address] [place], [place] [address] documented in this encounter Visit Diagnoses Diagnosis Other hyperlipidemia Essential hypertension Unspecified essential hypertension Acute blood loss anemia Acute posthemorrhagic anemia Gastritis, presence of bleeding unspeci fied, unspecified chronicity, unspecified gastritis type documented in this encounter"
--- OUTSIDE RECORDS SUMMARY | 2019-08-19 15:59 | XMS REPORT | Encounter Summary ---
Author Author [facility] Organization [facility] Address Unknown Phone Unavailable Care Team Providers Care Cyber Forensics Analyst Name Role Phone Self, Bradly Ayala MD PCP Reason for Visit * Reason Comments Follow Up 1 mo Results lab Medication Review pantoprazole Medication Refill hydrocodone, xanax Encounter Details Care Team Description Date Type Department Carlotta Aguayo MD NO ADDRESS ON FILE Other specified gastritis, presence of b leeding unspecified, unspecified chronicity (Primary Dx); History of GI bleed; Gastritis, presence of bleeding unspecified, unspecified chronicity, unspecified gastritis type; Primary osteoarthritis involving multiple joints; Anxiety 10/16/2017 Office Visit [address] [address] Social History Date Tobacco Use Types Packs/Day Years Used Never Smoker Smokeless Tobacco: Never Used Drinks/Week oz/Week Comments Alcohol Use No Sex Assigned at Date Recorded Not on file documented as of this encounter Last Filed Vital Signs Reading Time Taken Comments Vital Sign 108/74 10/16/2017 8:31 AM CDT Blood Pressure - - Pulse - - Temperature - - Respiratory Rate - - Oxygen Saturation - - Inhaled Oxygen Concentration 69.9 kg (154 lb) 10/16/2017 8:31 AM CDT Weight 152.4 cm (5') 10/16/2017 8:31 AM CDT Height 30.08 10/16/2017 8:31 AM CDT Body Mass Index documented in this encounter Progress Notes * Carlotta Aguayo MD - 10/17/2017 11:52 AM CDT HISTORY OF PRESENT ILLNESS Era Viveros, a 76 y.o. female presents with a Chief Complaint of Follow Up (1 mo); Results (lab); Medication Review (pantoprazole); and Medication Refill ( hydrocodone, xanax) Subjective Results Associated symptoms include fatigue and weakness. Pertinent negatives include no chills, congestion, coughing, fever or headaches. Foot Swelling Associated symptoms include fatigue and weakness. Pertinent negatives include no chills, congestion, coughing, fever or headaches. Leg Pain Associated symptoms: fatigue Associated symptoms: no back pain and no fever Medication Refill Associated symptoms include fatigue and weakness. Pertinent negatives include no chills, congestion, coughing, fever or headaches. here with follow up recent gastritis and [...] Negative for headaches. Objective PHYSICAL EXAM BP 108/74 | Ht 5' (1.524 m) | Wt 69.9 kg (154 lb) | BMI 30.08 kg/m Physical Exam Constitutional: She is oriented to person, place, and time. She appears well-dev eloped and well-nourished. HENT: Head: Normocephalic and atraumatic. Right Ear: External ear normal. Left Ear: External ear normal. Mouth/Throat: Oropharynx is clear and moist. Eyes: Pupils are equal, round, and reactive to light. Conjunctivae and EOM are n ormal. Neck: Normal range of motion. Neck supple. [...] reviewed. Lab Results Component Value Date/Time WBC 4.9 10/16/2017 07:46 AM HGB 9.6 (L) 10/16/2017 07:46 AM HCT 34.0 (L) 10/16/2017 07:46 AM PLT 282 10/16/2017 07:46 AM MCV 73.6 (L) 10/16/2017 07:46 AM Lab Results Component Value Date/Time NA 142 10/16/2017 07:46 AM K 4.6 10/16/2017 07:46 AM CL 106 10/16/2017 07:46 AM CO2 22 10/16/2017 07:46 AM CA 9.1 10/16/2017 07:46 AM BUN 20 10/16/2017 07:46 AM CREAT 1.95 (H) 10/16/2017 07:46 AM GLUCOSE 124 (H) 10/16/2017 07:46 AM TOTALPROTEIN 7.5 10/16/2017 07:46 AM ALBUMIN 3.9 10/16/2017 07:46 AM BILITOTAL 0.3 10/16/2017 07:46 AM ALKPHOS 87 10/16/2017 07:46 AM AST 31 10/16/2017 07:46 AM ALT 27 10/16/2017 07:46 AM ANIONGAP 14 10/16/2017 07:46 AM BCRATIO 13.5 03/06/2012 07:50 AM Procedures Assessment ASSESSMENT and PLAN: ICD-10-CM ICD-9-CM 1. Other specified gastritis, presence of bleeding unspecified, unspecified lunchroom monitor nicity K29.60 535.40 2. History of GI bleed Z87.19 V12.79 3. Gastritis, presence of bleeding unspecified, unspecified chronicity, unspecif ied gastritis type K29.70 535.50 pantoprazole (PROTONIX) 40 mg Tablet, Delayed R elease (E.C.) 4. Primary osteoarthritis involving multiple joints M15.0 715.09 HYDROcodone-belkis taminophen (NORCO) 5-325 mg tablet 5. Anxiety F41.9 300.00 ALPRAZolam (XANAX) 0.25 mg tablet Current Outpatient Prescriptions: pantoprazole (PROTONIX) 40 mg Tablet, Delayed Release (E.C.), Take 1 Tablet (40 mg) by mouth daily before breakfast., Disp: 90 Tablet, Rfl: 3 HYDROcodone-acetaminophen (NORCO) 5-325 mg tablet, Take 1 Tablet by mouth e very 4 hours as needed for Pain, Moderate., Disp: 120 Tablet, Rfl: 0 ALPRAZolam (XANAX) 0.25 mg tablet, Take 1 Tablet (0.25 mg) by mouth 3 times daily as needed for Anxiety., Disp: 90 Tablet, Rfl: 3 metoprolol tartrate (LOPRESSOR) 25 mg tablet, Take 1 Tab by mouth 2 times d aily., Disp: 60 Tablet, Rfl: 5 NIFEdipine (PROCARDIA XL) 30 mg Extended Release 24 hour tablet, Take 1 Tab by mouth 2 times daily., Disp: 60 Tablet, Rfl: 5 dicyclomine (BENTYL) 20 mg tablet, Take 1 [...] at bedtime., Disp: 90 Capsule, Rfl: 3 0mega-3 fatty acids-vitamin E (FISH OIL) 1,000 mg Capsule, Take 2 Capsules by mouth 2 times daily OMEGA RED. , Disp: , Rfl: documented in this encounter Plan of Treatment Not on filedocumented as of this encounter Visit Diagnoses Diagnosis Other specified gastritis, presence of bleeding unspecified, unspecified chronicity History of GI bleed Personal history of other diseases of d igestive system Gastritis, presence of bleeding unspeci fied, unspecified chronicity, unspecified gastritis type Primary osteoarthritis involving multip le joints Anxiety Anxiety state, unspecified documented in this encounter"
--- OUTSIDE RECORDS SUMMARY | 2019-08-19 15:59 | XMS REPORT | Encounter Summary ---
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 Role Phone Carlotta Aguayo MD PCP Unavailable Encounter Details Care Team Description Date Type Department Carlotta Aguayo MD NO ADDRESS ON FILE Ftsc, Outpt Lab 09/16/2017 [facility] Outpatient Encounter Laboratory [address] [address] Social History Date Tobacco Use Types Packs/Day Years Used Never Smoker Smokeless Tobacco: Never Used Drinks/Week oz/Week Comments Alcohol Use No Sex Assigned at Date Recorded Not on file documented as of this encounter Medications at Time of Discharge Start Date End Date Medication Sig Dispensed Refills 06/24/2017 dicyclomine (BENTYL) 20 Take 1 Tab by 120 Tablet 5 mg tablet mouth 4 times daily before meals and at bedtime. 0mega-3 fatty Take 2 0 acids-vitamin E (FISH Capsules by OIL) 1,000 mg Capsule mouth 2 times daily OMEGA RED. 09/16/2017 10/16/2017 pantoprazole (PROTONIX) Take 1 Tablet 20 Tablet 3 40 mg Tablet, Delayed (40 mg) by Release mouth daily (E.C.)Indications: before Gastritis, presence of breakfast. bleeding unspecified, unspecified chronicity, unspecified gastritis type 08/05/2017 02/03/2018 metoprolol tartrate Take 1 Tab by 60 Tablet 5 (LOPRESSOR) 25 mg tablet mouth 2 times daily. 08/05/2017 02/03/2018 NIFEdipine (PROCARDIA XL) Take 1 Tab by 60 Tablet 5 30 mg Extended Release 24 mouth 2 times hour tablet daily. 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 06/11/2017 12/23/2017 furosemide (LASIX) 20 mg Take 1 Tab by 30 Tablet 5 tablet mouth daily. 05/28/2017 11/18/2017 raloxifene (EVISTA) 60 mg Take 1 Tab by 30 Tablet 5 tablet mouth daily. 05/16/2017 05/20/2018 gabapentin (NEURONTIN) Take 1 90 Capsule 3 300 mg Capsule (300 capsuleIndications: mg) by mouth Neuropathy daily at bedtime. 02/16/2016 10/16/2017 ALPRAZolam (XANAX) 0.25 Take 1 Tablet 90 Tablet 3 mg tabletIndications: (0.25 mg) by Anxiety mouth 3 times daily as needed for Anxiety. documented as of this encounter Plan of Treatment Not on filedocumented as of this encounter Procedures Comments Procedure Name Priority Date/Time Associated Diag nosis CBC WITH DIFFERENTIAL Stat 09/16/2017 Acute bl ood loss anemia 8:27 AM CDT URIC ACID Routine 09/16/2017 Gout, unspecifi ed cause, 8:27 AM CDT unspecified chronicity, unspecified site LIPID PANEL Stat 09/16/2017 Other hyperlipi demia 8:27 AM CDT Essential hypertension COMPREHENSIVE METABOLIC Stat 09/16/2017 Other hyperlipidemia PANEL 8:27 AM CDT Essential hypertens ion documented in this encounter Results * LIPID PANEL (09/16/2017 8:27 AM CDT) CHOLESTEROL 204 (H) <200 mg/dL [facility] - [place] TRIGLYCERIDE 89 <150 mg/dL [facility] [place] HDL 67 (H) 40 - 59 mg/dL [facility] [place] LDL CALCULATED 119 (H) <100 mg/dL [facility] - [place] NON-HDL 137 (H) <130 mg/dL [facility] CHOLESTEROL LABORATORY SERVICES - [place] Specimen Blood Narrative Performed At TOTAL CHOLESTEROL mg/dL [facility] Desirable <200 SERVICES - [place] Borderline high 200-239 INDU High >=240 TRIGLYCERIDES [...] for Lipid Panels (NCEP/AMA) Performing Organization Address [facility] Ph one Number [facility] CLIA# [id number] KRISTA LAUREN [address] - [place] [address] [place] [address] * URIC ACID (09/16/2017 8:27 AM CDT) URIC ACID 8.9 (H) 2.4 - 5.7 mg/dL [facility] [place] Specimen Blood Performing Organization Address [facility] one Ken [facility] CLIA# [id number] KRISTA LAUREN [address] - [facility] INDU [address] [place] [address] * COMPREHENSIVE METABOLIC PANEL (09/16/2017 8:27 AM CDT) SODIUM 144 136 - 145 mmol/L [facility] [place] POTASSIUM 4.0 3.5 - 5.1 mmol/L [facility] [place] CHLORIDE 105 98 - 107 mmol/L [facility] [place] CO2 21 (L) 22 - 29 mmol/L [facility] [place] CALCIUM 8.9 8.8 - 10.2 mg/dL [facility] [place] BUN 21 8 - 23 mg/dL [facility] [place] CREATININE 1.70 (H) 0.51 - 0.95 mg/dL [facility] Comment: LABORATORY The GFR result is not SERVICES - [facility] clinically significant on [place] patients <18 or >70 years of age. GLUCOSE 119 (H) 74 - 99 mg/dL [facility] [place] TOTAL PROTEIN 7.2 6.6 - 8.7 g/dL [facility] [place] ALBUMIN 3.8 3.5 - 5.2 g/dL [facility] [place] BILIRUBIN TOTAL 0.2 <=1.2 mg/dL [facility] [place] ALKALINE 90 35 - 104 U/L [facility] PHOSPHATASE LAB[facility]ATORY [facility] - [place] AST 21 <=33 U/L [facility] [place] ALT 21 10 - 35 U/L [facility] [place] GFR 29 mL/min/1.73 sq meter [facility] Comment: LABORATORY eGFR has not been validated SERVICES [facility] for use in the elderly (> 70 [...] GFR result. GFR, 35 mL/min/1.73 sq meter [facility] - [place] ANION GAP 18 4 - 20 mmol/L [facility] [place] Specimen Blood Performing Organization Address City/State/[facility] Ph one Number [facility] CLIA# [id number] [place] [facility], KRISTA [address] - [place] [address] [facility] * CBC WITH DIFFERENTIAL (09/16/2017 8:27 AM CDT) WBC 6.0 3.6 - 11.1 K/uL [facility] [place] RBC 4.08 3.78 - 5.21 M/uL [facility] [place] HEMOGLOBIN 8.9 (L) 11.1 - 15.5 g/dL [facility] [place] HEMATOCRIT 30.2 (L) 34.3 - 46.7 % [facility] [place] MCV 74.0 (L) 82.7 - 97.1 fL [facility] [place] MCH 21.8 (L) 27.1 - 32.3 pg [facility] [place] MCHC 29.5 (L) 31.3 - 34.9 g/dL [facility] [place] RDW 18.1 (H) 11.5 - 14.7 % [facility] [place] RDW-STDEV 48.1 (H) 37.2 - 47.6 fL [facility] [place] PLATELETS 308 136 - 352 K/uL [facility] [place] MPV 9.5 8.6 - 11.8 fL [facility] [place] NEUTROPHILS 69 44 - 74 % [facility] [...] Ph one Number [facility] CLIA# [id number] [place], [place] [address] - [place] [facility] [address] [facility] documented in this encounter Visit Diagnoses Diagnosis Acute blood loss anemia Acute posthemorrhagic anemia Other hyperlipidemia Essential hypertension Unspecified essential hypertension Gout, unspecified cause, unspecified ch ronicity, unspecified site documented in this encounter
--- OUTSIDE RECORDS SUMMARY | 2019-08-19 15:59 | XMS REPORT | Encounter Summary ---
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 Role Phone Self, Bradly Ayala MD PCP Reason for Visit * Reason Comments Medication Refill Encounter Details Care Team Description Date Type Department Self, Bradly Ayala MD [address] [place] [address] 11/18/2017 Refill [facility] Primar y Care [place] [address] [place] [address] Social History Date Tobacco Use Types Packs/Day Years Used Never Smoker Smokeless Tobacco: Never Used Drinks/Week oz/Week Comments Alcohol Use No Sex Assigned at Date Recorded Not on file documented as of this encounter Plan of Treatment Not on filedocumented as of this encounter Visit Diagnoses Not on filedocumented in this encounter
--- OUTSIDE RECORDS SUMMARY | 2019-08-19 16:00 | XMS REPORT | Encounter Summary ---
Author Author [facility] Organization [facility] Address Unknown Phone Unavailable Care Team Providers Care Hepatology Physician Name Role Phone Carlotta Aguayo MD PCP Unavailable Encounter Details Care Team Description Date Type Department Carlotta Aguayo MD NO ADDRESS ON FILE Ftsc, Outpt Lab 08/19/2017 [facility] Outpatient Encounter Laboratory [address] [address] Social History Date Tobacco Use [...] Capsule mouth 2 times daily OMEGA RED. 08/09/2017 09/16/2017 pantoprazole (PROTONIX) Take 1 Tablet 20 Tablet 1 40 mg Tablet, Delayed (40 mg) by Release (E.C.) mouth daily before breakfast. 08/05/2017 02/03/2018 metoprolol tartrate Take 1 Tab [...] Associated Diag nosis CBC WITH DIFFERENTIAL Stat 08/19/2017 Acute bl ood loss anemia 9:12 AM CDT URIC ACID Stat 08/19/2017 Gout, unspecifi ed cause, 9:12 AM CDT unspecified chronicity, unspecified site COMPREHENSIVE METABOLIC Stat 08/19/2017 Gout, unspecified cause, PANEL 9:12 AM CDT unspecified chronic ity, unspecified site documented in this encounter Results * CBC WITH DIFFERENTIAL (08/19/2017 9:12 AM CDT) WBC 7.0 3.6 - 11.1 K/uL [facility] [place] RBC 3.84 3.78 - 5.21 M/uL [facility] - [place] HEMOGLOBIN 8.8 (L) 11.1 - 15.5 g/dL [facility] [place] HEMATOCRIT 30.6 (L) 34.3 - 46.7 % [facility] [place] MCV 79.7 (L) 82.7 - 97.1 fL [facility] [place] MCH 22.9 (L) 27.1 - 32.3 pg [facility] [place] MCHC 28.8 (L) 31.3 - 34.9 g/dL [facility] [place] RDW 17.4 (H) 11.5 - 14.7 % [facility] [place] RDW-STDEV 50.5 (H) 37.2 - 47.6 fL [facility] [place] PLATELETS 329 136 - 352 K/uL [facility] [place] MPV 9.7 8.6 - 11.8 fL [facility] [place] NEUTROPHILS 72 44 - 74 % [facility] [place] LYMPHOCYTES 16 16 - 44 % [facility] [place] MONOCYTES 10 4 - 11 % [facility] [place] EOSINOPHILS 1 0 - 6 % [facility] [place] BASOPHILS 1 0 - 1 % [facility] [place] IMMATURE 0 0 - 1 % [facility] - [place] NEUTROPHIL 5.03 1.54 - 7.18 K/uL [facility] [place] LYMPHOCYTE 1.10 0.69 - 3.61 K/uL [facility] [place] MONOCYTE 0.69 0.19 - 0.95 K/uL [facility] [place] EOSINOPHIL 0.09 0.00 - 0.44 K/uL [facility] [place] BASOPHILS 0.07 0.00 - 0.10 K/uL [facility] [place] IMMATURE 0.01 0.00 - 0.09 K/uL [facility] ABSOLUTE SERVICES - [place] [facility] Specimen Blood Performing Organization Address City/State/Zipcode Ph one Number [facility] CLIA# [id number] [place] [address] - [place] [address] [place] [address] * COMPREHENSIVE METABOLIC PANEL (08/19/2017 9:12 AM CDT) SODIUM 139 136 - 145 mmol/L [facility] [place] POTASSIUM 3.8 3.5 - 5.1 mmol/L [facility] [place] CHLORIDE 99 98 - 107 mmol/L [facility] [place] [facility] CO2 22 22 - 29 mmol/L [facility] [place] CALCIUM 8.5 (L) 8.8 - 10.2 mg/dL [facility] [place] BUN 12 8 - 23 mg/dL [facility] - [facility] CREATININE 1.50 (H) 0.51 - 0.95 mg/dL [facility] Comment: LABORATORY The GFR result is not SERVICES - [facility] clinically significant on [place] patients <18 or >70 years of age. GLUCOSE 116 (H) 70 - 100 mg/dL [facility] - [place] TOTAL PROTEIN 6.8 6.6 - 8.7 g/dL [facility] - [place] ALBUMIN 3.8 3.5 - 5.2 g/dL [facility] [place] BILIRUBIN TOTAL 0.2 <=1.2 mg/dL [facility] - [place] ALKALINE 86 35 - 104 U/L [facility] PHOSPHATASE LABORATORY SERVICES - [place] AST 34 (H) <=33 U/L [facility] - [place] ALT 31 10 - 35 U/L [facility] [place] GFR 34 mL/min/1.73 sq meter [facility] Comment: LABORATORY eGFR has not been validated SERVICES - [facility] for use in the elderly (> 70 [place] years of age), women, patients with serious [...] please refer to the GFR result. GFR, 41 mL/min/1.73 sq meter [facility] - [place] ANION GAP 18 4 - 20 mmol/L [facility] - [place] Specimen Blood Performing Organization Address [facility] one Number [facility] CLIA# [id number] [place] [address] - [address] * URIC ACID (08/19/2017 9:12 AM CDT) URIC ACID 8.6 (H) 2.4 - 5.7 mg/dL [facility] - [place] Specimen Blood Performing Organization Address [facility] Ph one Number [facility] CLIA# [id number] [place] [address] - [address] documented in this encounter Visit Diagnoses Diagnosis Gout, unspecified cause, unspecified ch ronicity, unspecified site Acute blood loss anemia Acute posthemorrhagic anemia documented in this encounter
--- OUTSIDE RECORDS SUMMARY | 2019-08-19 16:00 | XMS REPORT | Encounter Summary ---
Author Author [facility] Organization [facility] Address Unknown Phone Unavailable Care Team Providers Care Gravity Prospecting Operator Helper Name Role Phone Carlotta Aguayo MD PCP Unavailable Reason for Visit * Auth/Cert Referred By Contact Referred To Contact Status Reason Specialty Diagnoses / Procedures [facility] Operating Room [address] [place] [address] Procedures ESOPHAGOGASTRODUOD ENOSCOPY Encounter Details Care Team Description Date Type Department Vandana Rosen MD NO ADDRESS ON FILE 08/09/2017 Hospital [facility] ort Encounter Indu Pre Post Op [address] [place] [address] Social History Date Tobacco Use Types Packs/Day Years Used Never Smoker Smokeless Tobacco: Never Used Drinks/Week oz/Week Comments Alcohol Use No Sex Assigned at Date Recorded Not on file documented as of this encounter Last Filed Vital Signs Reading Time Taken Comments Vital Sign 105/41 08/09/2017 12:00 PM CDT Blood Pressure 68 08/09/2017 12:00 PM CDT Pulse 36.7 C (98.1 F) 08/09/2017 12:00 PM CDT Temperature 14 08/09/2017 12:00 PM CDT Respiratory Rate 94% 08/09/2017 12:00 PM CDT Oxygen Saturation - - Inhaled Oxygen Concentration 71.2 kg (157 lb) 08/09/2017 8:26 AM CDT Weight 157.5 cm (5' 2") 08/09/2017 8:26 AM CDT Height 28.72 08/09/2017 8:26 AM CDT Body Mass Index documented in this encounter Discharge Instructions * Instructions* Tolu Ireland RN - 08/09/2017 1. Call office, , for any questions. Office hours are 8 am to 5 pm Saturday to , and 8 am to 12 noon on Saturday. 2. Follow up with Dr. Rosen on . August 15 at 3:30 3. May take MOM 30 ml at bedtime for constipation. 4. Avoid Aspirin or Aspirin-containing products for at least 3 days. 5. May take Tylenol 325 mg to 650 mg every 6 hours as needed for mild pain. * Attachments The following attachments cannot be sent through Care Everywhere.* Hiatal Hernia ([place] Citizen) * EGD (Upper Endoscopy): Post-op ([place] Citizen) * Monitored Anesthesia Care: MAC: General Info ([place] Citizen) documented in this encounter Medications at Time of Discharge [...] for Anxiety. documented as of this encounter H&P Notes * Vandana Rosen MD - 08/09/2017 8:10 AM CDT Patient examined; history and physical reviewed and no changes noted. Will proc eed with Esophagogastroduodenoscopy with biopsies. documented in this encounter OR Notes * Bernadette-OP - Miya Kohli RN - 08/09/2017 11:44 AM CDT Oral airway removed at this time. * Operative Report - Vandana Rosen MD - 08/09/2017 11:44 AM CDT Endoscopic Gastroduodenoscopy Procedure Note Procedure: Endoscopic Gastroduodenoscopy --diagnostic Pre-operative Diagnosis: anemia Post-operative Diagnosis: same, large hiatal hernia Indications: Unexplained iron deficiency anemia Sedation: sedation per anesthesia Pre-Procedure Physical: Current Facility-Administered Medications Medication Dose Route Frequency Provider Last Rate Last Dose lactated Ringers solution IV Continuous Vandana Rosen MD 100 mL/hr at 0830 ondansetron (ZOFRAN) 4 mg/2 mL injection 4 mg 4 mg IV Post-Proc Once PRN Br Leandra ha CRNA [DISCONTINUED] benzocaine (HURRICAINE) 20 % spray Intra-Proc Once PRN Vandana Caraballo MD 1 [place] at 08/09/17 1115 Facility-Administered Medications Ordered in Other Encounters Medication Dose Route Frequency Provider Last Rate Last Dose [DISCONTINUED] fentaNYL PF (SUBLIMAZE) 50 mcg/mL injection Intra-Proc Onc e PRN Leandra Hinds CRNA 50 mcg at 08/09/17 1112 [DISCONTINUED] propofol (DIPRIVAN) injection INTRA-PROC CONTINUOUS PRN Br asuell, P [place], YARDAGE CONTROL OPERATOR Stopped at 08/09/17 112 [DISCONTINUED] lidocaine PF 2 % (XYLOCAINE MPF) injection Intra-Proc Once PRN Leandra Hinds YARDAGE CONTROL OPERATOR 2.5 mL at 08/09/17 111 [DISCONTINUED] midazolam (VERSED) injection Intra-Proc Once PRN Leandra Hinds, YARDAGE CONTROL OPERATOR 2 mg at 08/09/17 111 [DISCONTINUED] ciprofloxacin HCl (CIPRO) tablet 250 mg 250 mg Oral q 12 gretchen r (BID) Carlotta Aguayo MD 250 mg at 08/08/17804 [DISCONTINUED] dicyclomine (BENTYL) tablet 20 mg 20 mg Oral QID Meals Carlotta Jean Baptiste MD 20 mg at 08/08/17821 [DISCONTINUED] naloxone (NARCAN) 0.4 mg/mL injection 0.1 mg 0.1 mg IV See A dmin Notes Carlotta Aguayo MD [DISCONTINUED] sodium chloride 0.9% infusion IV Continuous Carlotta Aguayo MD 75 mL/hr at 08/08/17 0015 [DISCONTINUED] acetaminophen (TYLENOL) tablet 650 mg 650 mg Oral q 6 hour P RN Carlotta Aguayo MD [DISCONTINUED] ondansetron (ZOFRAN ODT) tablet 4 mg 4 mg Oral q 6 hour PRN Carlotta Aguayo MD [DISCONTINUED] docusate sodium (COLACE) capsule 100 mg 100 mg Oral BID Carlotta Lu MD 100 mg at 08/08/17804 [DISCONTINUED] sodium chloride flush injection 10 mL 10 mL IV See Admin Not es Carlotta Aguayo MD 10 mL at 08/07/172008 [DISCONTINUED] ALPRAZolam (XANAX) tablet 0.25 mg 0.25 mg Oral TID PRN Carlotta Jean Baptiste MD [DISCONTINUED] furosemide (LASIX) tablet 20 mg 20 mg Oral Daily Carlotta Aguayo MD 20 mg at 08/08/17804 [DISCONTINUED] gabapentin (NEURONTIN) capsule 300 mg 300 mg Oral Daily BEDT ANKUR Carlotta Aguayo MD 300 mg at 08/07/172010 [DISCONTINUED] NIFEdipine (ADALAT CC) SR tablet 30 mg 30 mg Oral Daily Carlotta Lu MD 30 mg at 08/08/17804 [DISCONTINUED] metoprolol tartrate (LOPRESSOR) tablet 25 mg 25 mg Oral BID Carlotta Aguayo MD 25 mg at 08/08/17804 [DISCONTINUED] pantoprazole (PROTONIX) tablet 40 mg 40 mg Oral AC Daily Ladonna akfast Carlotta Aguayo MD 40 mg at 08/08/17632 Allergies: Allopurinol; Indomethacin; and Other drug [unclassified drug] BP (!) 105/41 (BP Location: Right arm, Patient Position (BP): Supine) | Pulse 6 8 | Temp 98.1 F (36.7 C) (Temporal) | Resp 14 | Ht 5' 2" (1.575 m) | Wt 71.2 kg (157 lb) | SpO2 94% | BMI 28.72 kg/m Airway: normal Heart: normal S1 and S2 Lungs: clear Abdomen: soft, nontender, normal bowel sounds Mental Status: awake and alert; oriented to person, place, and time Procedure Details Informed consent was obtained for the procedure, including monitored anesthesia care. Risks of pancreatitis, infection, perforation, hemorrhage, adverse drug re action and aspiration were discussed. The patient was placed in the supine posit ion. Based on the pre-procedure assessment, including review of the patient's m edical history, medications, allergies, and review of systems, she had been deem ed to be an appropriate candidate for monitored anesthesia care. The Olympus gastroscope was inserted into the mouth and advanced under direct vi prerna to second portion of the duodenum. A careful inspection was made as the ga stroscope was withdrawn, including a retroflexed view of the proximal stomach; f indings and interventions are described below. Appropriate photodocumentation wa s obtained. Findings: -hiatal hernia, type II very large cm in size Specimens: biopsies of duodenum, antrum, body of stomach, and GE junction. Antr al biopsy for SALONI test. Complications: None; patient tolerated the procedure well. Attending Attestation: I performed the procedure. Impression: -See post-procedure diagnoses. Recommendations: -Continue acid suppression., -Await pathology., -Await SALONI test result and treat for Helicobacter pylori if positive., -Follow up with me. documented in this encounter Plan of Treatment Not on filedocumented as of this encounter Procedures Comments Procedure Name Priority Date/Time Associated Diag nosis HELICOBACTER PYLORI RAPID Routine 08/09/2017 UREASE TEST 11:24 AM CDT PATHOLOGY Pathology 08/09/2017 11:23 AM CDT ESOPHAGOGASTRODUODENOSCOP 08/09/2017 Y 10:57 AM CDT CBC WITHOUT DIFFERENTIAL Stat 08/09/2017 8:33 AM CDT EDUCATION UPPER GI Routine 08/09/2017 ENDOSCOPY 8:20 AM CDT documented in this encounter Results * HELICOBACTER PYLORI RAPID UREASE TEST (08/09/2017 11:24 AM CDT) H. PYLORI RAPID Negative Negative [facility] UREASE TEST LAB[facility]ORY [facility] - [place] Specimen Tissue - Entire stomach (body structure) Performing Organization Address City/State/Zipcode Ph one Number [facility] CLIA# [id number] [place], [place] [address] - [address] * PATHOLOGY (08/09/2017 11:23 AM CDT) CASE REPORT Surgical Pathology Report [facility] Case: [id number] CONSULTANTS, MICHAEL Authorizing Provider: Vandana Rosen MD Collected: 08/09/2017 11:23 AM Ordering Location: [facility] Received: 08/09/2017 12:04 PM Operating Room Pathologist: Med Su MD Specimens: A) - Duodenal biopsy. B) - Antral biopsy. C) - Body of stomach biopsy. D) - Gastroesophageal junction biopsy. FINAL DIAGNOSIS A) Small bowel, duodenum, [place] ectronically biopsy: Focal acute PATHOLOGY signed by duodenitis. CONSULTANTS, Med [place] B) Stomach, antrum, biopsy: MD Talia on 08/12/2017 Mild superficial chronic at 4:33 PM inflammation. C) Stomach, body, biopsy: Mild superficial chronic inflammation. D) Gastroesophageal junction, biopsy: 1. Moderate chronic gastritis. 2. Mildly reactive squamous esophageal epithelium. CPT Code: 41981o9 ICD10 Code: K29.80, K29.30 OPERATIVE Esophagogastroduodenoscopy. [facility] PROCEDURE PATHOLOGY CONSULTANTS, MICHAEL GROSS A) The specimen is received in [facility] formalin and consists of a PATHOLOGY 0.8x0.2x0.2 cm dempsey-phillips soft CONSULTANTMICHAEL Corey tissue fragment entirely submitted. B) The specimen is received in formalin and consists of a 0.4x0.3x0.2 cm dempsey soft tissue fragment entirely submitted. C) The specimen is received in formalin and consists of a 0.5x0.2x0.2 cm phillips soft tissue fragment entirely submitted. D) The specimen is received in formalin and consists of a 0.5x0.3x0.1 cm dempsey soft tissue fragment entirely submitted. MICROSCOPIC A) A fragment of small [place] DESCRIPTION intestinal mucosa shows normal PATHOL OGY villous architecture. There is CONSULTANTSMICHAEL no pathologic intraepithelial lymphocytosis. The lamina propria shows a normal number and distribution of leukocytes except that there is focal neutrophilic inflammation with an area of reactive epithelium. A lymphoid aggregate is seen. Submucosal Sunday's glands are present but are not noted to extend significantly into the lamina propria. B) A biopsy of gastric antral mucosa shows foveolar surface and pit epithelium. There is no intestinal metaplasia. The lamina propria does have mild lymphoplasmacytic inflammation. A Giemsa stain is noncontributory. C) A biopsy of gastric body mucosa shows foveolar surface and pit epithelium. The lamina propria has mild superficial lymphoplasmacytic inflammation and some congestion. There is no neutrophilic inflammation or intestinal metaplasia. D) A biopsy from the gastroesophageal junction shows stratified squamous esophageal epithelium and a small amount of gastric mucosa. The squamous epithelium is tangentially sectioned. Fibrovascular papillae are congested. There are no intraepithelial neutrophils or eosinophils in the squamous epithelium. There is mild hyperplasia of the parabasal layer. The gastric mucosa shows foveolar epithelium without intestinal metaplasia or dysplasia. There is moderate lymphoplasmacytic inflammation in the lamina propria. Specimen Tissue Tissue specimen (specimen) Tissue specimen (specimen) Tissue specimen (specimen) Performing Organization Address City/State/Zipcode Ph one Number [facility] CLIA # [id number] [place] [address] CONSULTANTSMICHAEL [address] [place] [address] * CBC WITHOUT DIFFERENTIAL (08/09/2017 8:33 AM CDT) WBC 6.1 3.6 - 11.1 K/uL [facility] [place] NRBCS 1 (H) 0 - 0 % [facility] [place] RBC 3.62 (L) 3.78 - 5.21 M/uL [facility] [place] HEMOGLOBIN 8.7 (L) 11.1 - 15.5 g/dL [facility] [place] HEMATOCRIT 28.9 (L) 34.3 - 46.7 % [facility] [place] MCV 79.8 (L) 82.7 - 97.1 fL [facility] [place] MCH 24.0 (L) 27.1 - 32.3 pg [facility] [place] MCHC 30.1 (L) 31.3 - 34.9 g/dL [facility] [place] PLATELETS 280 136 - 352 K/uL [facility] [place] MPV 9.8 8.6 - 11.8 fL [facility] [place] RDW 16.9 (H) 11.5 - 14.7 % [facility] [place] RDW-STDEV 49.4 (H) 37.2 - 47.6 fL [facility] INDU Specimen Blood Performing Organization Address City/State/[place] Ph one Number [facility] CLIA# [id number] [place] [address] [place] [address] [place] [address] * EDUCATION UPPER GI ENDOSCOPY - ROMI (08/09/2017 8:20 AM CDT) Education Name UPPER GI ENDOSCOPY ROMI EDUCATION INTERFACE Education URL [email or web address] ROMI E DUCATION mmi INTERFACE EDUCATION [phone] ROMI EDUCATION ACCESS CODE INTERFACE EDUCATION ISSUE August 09, 2017 ROMI EDUCATION DATE INTERFACE EDUCATION START ROMI EDUCATION DATE INTERFACE EDUCATION This program was not started ROMI EDU CATION COMPLETED DATE and flagged as on: Aug EDUCATION Sep 08, 2017 ROMI EDUCATION EXPIRATION DATE INTERFACE EDUCATION ROMI EDUCATION MESSAGE EVENT INTERFACE Specimen Performing Organization Address City/[facility]/Zipcode Ph one Number ROMI EDUCATION INTERFACE documented in this encounter Visit Diagnoses Diagnosis Hiatal hernia Diaphragmatic hernia without mention of obstruction or gangrene documented in this encounter Administered Medications Action Date Dose Rate Site Medication Order MAR Action 08/09/2017 8:30 AM CDT 100 mL/hr lactated Ringers solution New Bag IV, at 100 mL/hr, CONTINUOUS, Starting Sat08/09/17 at 0830, Until 08/10/17 at 0208, Routine, Pre-op ondansetron (ZOFRAN) 4 mg/2 mL injectio n 4 mg 4 mg, IV, POST-PROCEDURE ONCE PRN, 1 dose, Starting Sat08/09/17 at 1104, Until 08/10/17 at 0208, Nausea/Emesis, Routine, PACU documented in this encounter
--- OUTSIDE RECORDS SUMMARY | 2019-08-19 16:00 | XMS REPORT | Encounter Summary ---
Author Author [facility] Organization [facility] Address Unknown Phone Unavailable Care Team Providers Care White Metal Corrosion Proofer Name Role Phone Carlotta Aguayo MD PCP Unavailable Reason for Visit * Reason Comments Gout on right foot, started on at08/17/17, painful, getting worse Encounter Details Care Team Description Date Type Department Carlotta Aguayo MD NO ADDRESS ON FILE Gout involving toe of right foot, unspec ified cause, unspecified chronicity (Primary Dx) 08/19/2017 Office Visit [facility] [address] [address] Social History Date Tobacco Use Types Packs/Day Years Used Never Smoker Smokeless Tobacco: Never Used Drinks/Week oz/Week Comments Alcohol Use No Sex Assigned at Date Recorded Not on file documented as of this encounter Last Filed Vital Signs Reading Time Taken Comments Vital Sign 116/60 08/19/2017 9:23 AM CDT Blood Pressure - - Pulse 37.3 C (99.2 F) 08/19/2017 9:23 AM CDT Temperature - - Respiratory Rate - - Oxygen Saturation - - Inhaled Oxygen Concentration 72.6 kg (160 lb) 08/19/2017 9:23 AM CDT Weight 152.4 cm (5') 08/19/2017 9:23 AM CDT Height 31.25 08/19/2017 9:23 AM CDT Body Mass Index documented in this encounter Progress Notes * Carlotta Aguayo MD - 08/25/2017 1:29 PM CDT HISTORY OF PRESENT ILLNESS [place] Mathis Viveros, a 76 y.o. female presents with a Chief Complaint of Gout (on r ight foot, started on Saturday08/17/17, painful, getting worse) Subjective HPIhere with a history of gout, difficulty tolerating oral uricosuric agents. Re solved with IM steroid in past. R great toe tender and slight red and swollen. Current Outpatient Prescriptions: pantoprazole (PROTONIX) 40 mg Tablet, Delayed Release (E.C.), Take 1 Tablet (40 mg) by mouth daily before breakfast., Disp: 20 Tablet, Rfl: 1 metoprolol tartrate (LOPRESSOR) 25 mg tablet, Take [...] E (FISH OIL) 1,000 mg Capsule, Take 3 Capsule b y mouth 2 times daily OMEGA RED. , Disp: , Rfl: REVIEW OF SYSTEMS Review of Systems Constitutional: Negative for activity change, appetite change, chills, fever and unexpected weight change. HENT: Negative for congestion. Eyes: Negative for visual disturbance. Respiratory: Negative for cough. Genitourinary: Negative for menstrual problem. Musculoskeletal: Positive for arthralgias. Negative for back pain. Neurological: Negative for weakness and headaches. Objective PHYSICAL EXAM BP 116/60 | Temp 99.2 F (37.3 C) | Ht 5' (1.524 m) | Wt 72.6 kg (160 lb) | BMI 31.25 kg/m Physical Exam Constitutional: She is oriented [...] are normal. Musculoskeletal: Normal range of motion. She exhibits tenderness (with red and s light swelling R fgreat MP toe joint). Neurological: She is alert and oriented to person, place, and time. Skin: Skin is warm and dry. Nursing note and vitals reviewed. Procedures Assessment ASSESSMENT and PLAN: ICD-10-CM ICD-9-CM 1. Gout involving toe of right foot, unspecified cause, unspecified chronicity M 10.9 274.9 dexamethasone (DECADRON) injection 4 mg methylPREDNISolone acetate (DEPO-Medrol) injection 80 mg Hold lasix documented in this encounter Plan of Treatment Not on filedocumented as of this encounter Visit Diagnoses Diagnosis Gout involving toe of right foot, unspe cified cause, unspecified chronicity documented in this encounter Administered Medications Action Date Dose Rate Site Medication Order MAR Action 08/19/2017 10:03 AM CDT 4 mg Left Upp er Outer Quadrant dexamethasone (DECADRON) injection 4 mg Given 4 mg, IM, ONE TIME ONLY, 1 dose, 08/19/17 at 1000, Routine 08/19/2017 10:04 AM CDT 80 mg Left Upp er Outer Quadrant methylPREDNISolone acetate (DEPO-Medrol) Given injection 80 mg 80 mg, IM, ONE TIME ONLY, 1 dose, Sat08/19/17 at 1000, Routine documented in this encounter"
--- OUTSIDE RECORDS SUMMARY | 2019-08-19 16:00 | XMS REPORT | Encounter Summary ---
Author Author [facility] Organization [facility] Address Unknown Phone Unavailable Care Team Providers Care Director Telecommunications Name Role Phone Carlotta Aguayo MD PCP Unavailable Reason for Visit * Auth/Cert Referred By Contact Referred To Contact Status Reason Specialty Diagnoses / Procedures [facility] Operating Room [address] [place] [address] Procedures ESOPHAGOGASTRODUOD ENOSCOPY Encounter Details Care Team Description Date Type Department Vandana Rosen MD NO ADDRESS ON FILE ESOPHAGOGASTRODUODENOSCOPY 08/09/2017 Surgery [facility] Operating Room [address] [place] [address] Social History Date Tobacco Use Types [...] be sent through Care Everywhere.* Hiatal Hernia (Malagasy) * EGD (Upper Endoscopy): Post-op (Malagasy) * Monitored Anesthesia Care: MAC: General Info (Malagasy) documented in this encounter Medications at Time [...] Intra-Proc Once PRN Vandana Caraballo MD 1 [place] at 08/09/17 1115 Facility-Administered Medications Ordered in Other Encounters Medication Dose Route Frequency Provider Last Rate Last Dose [DISCONTINUED] fentaNYL PF (SUBLIMAZE) 50 mcg/mL injection Intra-Proc Onc e PRN Leandra Hinds CRNA 50 mcg at 08/09/17 1112 [DISCONTINUED] propofol (DIPRIVAN) injection INTRA-PROC CONTINUOUS PRN Br asLeandra puri, LIBRARY MEDIA ASSISTANT Stopped at 08/09/171119 [DISCONTINUED] lidocaine PF 2 % (XYLOCAINE MPF) injection Intra-Proc Once PRN Leandra Hinds, LIBRARY MEDIA ASSISTANT 2.5 mL at 08/09/171109 [DISCONTINUED] midazolam (VERSED) injection Intra-Proc Once PRN Leandra Hinds, LIBRARY MEDIA ASSISTANT 2 mg at 08/09/171109 [DISCONTINUED] ciprofloxacin HCl (CIPRO) tablet 250 mg [...] AM CDT) H. PYLORI RAPID Negative Negative [facility] UREASE TEST LAB[facility]ATORY SERVICES - [place] Specimen Tissue - Entire stomach (body structure) Performing Organization Address City/State/[facility] Ph one Number [facility] CLIA# [id number] [place], [place] [address] [address] * PATHOLOGY (08/09/2017 11:23 AM CDT) CASE REPORT Surgical Pathology Report [facility] Case: [id number] CONSULTANTS, MICHAEL Authorizing Provider: Vandana Rosen MD Collected: 08/09/2017 11:23 AM Ordering Location: [facility] Received: 08/09/2017 12:04 PM Operating Room Pathologist: [...] Mildly reactive squamous esophageal epithelium. CPT Code: 93613t0 ICD10 Code: K29.80, K29.30 OPERATIVE Esophagogastroduodenoscopy. [place] PROCEDURE PATHOLOGY CONSULTANTSMICHAEL GROSS A) The specimen is received in [facility] formalin and consists of a PATHOLOGY [...] submitted. MICROSCOPIC A) A fragment of small [place] DESCRIPTION intestinal mucosa shows normal PATHOL OGY [...] Performing Organization Address City/State/Zipcode Ph one Number [facility] CLIA # [id number] [place] [address] [phone] CONSULTANTMICHAEL Corey [address] [place] [address] * CBC WITHOUT DIFFERENTIAL (08/09/2017 8:33 AM CDT) WBC 6.1 3.6 - 11.1 K/uL [facility] [place] NRBCS 1 (H) 0 - 0 % [facility] [place] RBC 3.62 (L) 3.78 - 5.21 M/uL [facility] INDU HEMOGLOBIN 8.7 (L) 11.1 - 15.5 g/dL [facility] HEMATOCRIT 28.9 (L) 34.3 - 46.7 % [facility] LAB[facility] MCV 79.8 (L) 82.7 - 97.1 fL [facility] [place] MCH 24.0 (L) 27.1 - 32.3 pg [facility] [place] MCHC 30.1 (L) 31.3 - 34.9 g/dL [facility] PLATELETS 280 136 - 352 K/uL [facility] LAB[facility] INDU MPV 9.8 8.6 - 11.8 fL [facility] RDW 16.9 (H) 11.5 - 14.7 % [facility] RDW-STDEV 49.4 (H) 37.2 - 47.6 fL [facility] Specimen Blood Performing Organization Address City/[facility] Ph one Number [facility] CLIA# [id number] [place] [address] * EDUCATION UPPER GI ENDOSCOPY - ROMI (08/09/2017 8:20 AM CDT) Education Name UPPER GI ENDOSCOPY ROMI EDUCATION INTERFACE Education URL [email or web address] ROMI E DUCATION mmi INTERFACE EDUCATION [phone] ROMI EDUCATION ACCESS CODE INTERFACE EDUCATION ISSUE August 09, 2017 ROMI EDUCATION DATE INTERFACE EDUCATION START ROMI EDUCATION DATE INTERFACE EDUCATION This program was not started ROMI EDU CATION COMPLETED DATE and flagged as on: Aug EDUCATION Sep 08, 2017 ROMI EDUCATION EXPIRATION DATE INTERFACE EDUCATION ROMI EDUCATION MESSAGE EVENT INTERFACE Specimen Performing Organization Address City/[facility]/Zipcode Ph one Number ROMI EDUCATION INTERFACE documented in this encounter Visit Diagnoses Not on filedocumented in this encounter Administered Medications Action Date Dose Rate Site Medication Order MAR Action 08/09/2017 11:15 AM CDT 1 [place] benzocaine (HURRICAINE) 20 % spray Given INTRA-PROCEDURE PRN, Starting Sat08/09/17 at 1115, Until Sat08/09/17 at 1137, Routine, Intra-op 08/09/2017 8:30 AM CDT 100 mL/hr lactated [...]
--- OUTSIDE RECORDS SUMMARY | 2019-08-19 16:00 | XMS REPORT | Encounter Summary ---
Author Author [facility] Address Unknown Phone Unavailable Care Team Providers Care Trauma Counsellor Name Role Phone Carlotta Aguayo MD PCP Unavailable Reason for Visit * Auth/Cert Referred By Contact Referred To Contact Status Reason Specialty Diagnoses / Procedures [facility] Operating Room [address] [place] [address] Procedures ESOPHAGOGASTRODUOD ENOSCOPY Encounter Details Care Team Description Date Type Department Leandra Hinds CRNA NO ADDRESS ON FILE 08/09/2017 Anesthesia [facility] Operating Room [address] [place] [address] Anesthesia Record Responsible Anesthesiologist Anesthesia Start Time Anesthesi a Stop Time Procedure Name Leandra Hinds CRNA 08/09/17 1115 08/09/17 1142 ESOPHAGOGASTRODUODENOSCOP Y (N/A Throat) Date Time Event Comment 1102 1115 An Start 1115 An Start Data 1115 Pre-Induction Immediate pre-induc tion anesthetic assessment performed. Vital signs as noted on graphic. 1115 An Induction 1116 Anesthesia Ready 1141 an stop data 1142 An Stop Meds Name Total fentaNYL (SUBLIMAZE) PF 50mcg/mL 50 mcg injection midazolam (VERSED) 1mg/mL injection 2 mg propofol (DIPRIVAN) 10mg/mL injection 53.4 mg lidocaine PF (XYLOCAINE MPF) 2% 2.5 mL injection lactated Ringers solution 600 mL * Name O2 Inspired O2 N2O Inspired N2O * No blood administrations on file. Removal Type Details Placement 08/09/17 1209 by Tolu Ireland RN Peripheral Pre-Hospital Start: No; Orientation: 0 08/09/17 0852 by TYESHA Martinez Left; Location: AC; Device: Angiocath; Concepcion Dela Cruz APRN Gauge: 22 gauge; Needle Length: 1 in length; Insertion Attempts: 1; Patient Tolerance: tolerated well; Pain Prevention: intradermal injection; Removal Indication: no longer indicated documented in this encounter Social History Date Tobacco Use Types Packs/Day Years Used Never Smoker Smokeless Tobacco: Never Used Drinks/Week oz/Week Comments Alcohol Use No Sex Assigned at Date Recorded Not on file documented as of this encounter OR Notes * Anesthesia Handoff - Leandra Hinds CRNA - 08/09/2017 11:40 AM CDT Post-Anesthetic transfer of care report elements to appropriate post-anesthesia recovery environment completed in accordance with procedure. I completed my handoff to the receiving nurse during which we: 1. Identified the patient 2. Identified the responsible provider 3. Reviewed the pertinent medical history 4. Discussed the surgical course 5. Reviewed intra-op anesthesia management and issues during anesthesia 6. Set expectations for post-procedure period 7. Allowed opportunity for questions and acknowledgement of understanding. Vital Signs: BP: 118/68 (08/09/2017 8:26 AM) Pulse: 68 (08/09/2017 8:26 AM) Heart Rate: 68 bpm (08/08/2017 10:34 AM) Temp: 36.4 C (08/09/2017 8:26 AM) Resp: 16 (08/09/2017 8:26 AM) SpO2: 98 % (08/08/2017 10:34 AM) 11:40 AM Leandra Hinds CRNA * Anesthesia Postprocedure Evaluation - Leandra Hinds CRNA - 08/09/2017 11:40 AM CDT Post Anesthesia Evaluation Vitals: BP 118/68 (BP Location: Right arm, Patient Position (BP): Supine) | Pu lse 68 | Temp 36.4 C (Temporal) | Resp 16 | Ht 5' 2" (1.575 m) | Wt 71.2 k g (157 lb) | BMI 28.72 kg/m Pain Rating: Nausea/Vomiting: no nausea and no vomiting Post-Op hydration: well hydrated Respiratory function: no respiratory symptoms Airway patency: normal Cardiovascular function: Normal - Regular rate and rhythm Mental status, LOC: 0=alert; keenly responsive Patient participated in evaluation: yes Unanticipated Events: no Leandra Hinds CRNA * Anesthesia Preprocedure Evaluation - Leandra Hinds CRNA - 08/09/2017 10:57 AM CDT Relevant Problems No active problems are marked relevant to this note. Subjective: 08/09/2017 , the patient was interviewed in the Pre-Op. Patient is a 76 y.o. Cauc female scheduled for Procedure(s): ESOPHAGOGASTRODUODENOSCOPY. Medical record [id number]. Patient Active Problem List Diagnosis Date Noted Acute blood loss anemia 08/07/2017 Renal insufficiency 05/16/2017 Nocturnal dyspnea 08/30/2016 Familial hypercholesterolemia 08/30/2016 Iron deficiency anemia 04/10/2015 Pneumonia 04/09/2015 Prediabetes 09/16/2014 Hyperlipidemia 06/05/2012 Tubular adenoma of colon 04/09/2012 Hypertension 07/13/2010 DA (degenerative arthritis) 07/13/2010 Knee pain 07/13/2010 Status post colonoscopy with polypectomy 04/29/2009 Past Medical History: Diagnosis Date Chronic ischemic heart disease, unspecified GERD (gastroesophageal reflux disease) Gout HTN (hypertension) Status post colonoscopy with polypectomy 04/29/2009 Past Surgical History: Procedure Laterality Date NE COLONOSCOPY FLX DX W/COLLJ SPEC WHEN PFRMD 04/29/2009 COLONOSCOPY performed by GAMAL ROSEN at [facility] OR NE COLONOSCOPY FLX DX W/COLLJ SPEC WHEN PFRMD 04/18/2012 [place]OSCOPY [place] Gamal Rosen [place] [facility] [place] COLONOSCOPY FLX DX W/COLLJ SPEC WHEN PFRMD N/A 06/07/2017 COLONOSCOPY performed [place] Gamal Rosen MD [place] [facility] [place] NE LIGATE FALLOPIAN TUBE Social History Social History Marital status: Spouse name: N/A Number of children: N/A Years of education: N/A Occupational History Retired Social History Main Topics Smoking status: Never Smoker Smokeless tobacco: Never Used Alcohol use No Drug use: No Sexual activity: Not Currently Partners: Male Other Topics Concern Not on file Social History Narrative No narrative on file No current facility-administered medications on file prior to encounter. Current Outpatient Prescriptions on File Prior to Encounter Medication Sig Dispense Refill ciprofloxacin HCl (CIPRO) 250 mg tablet Take 1 Tablet (250 mg) by mouth ever y 12 hours. 14 Tablet 0 pantoprazole (PROTONIX) 40 mg Tablet, Delayed Release (E.C.) Take 1 Tablet ( 40 mg) by mouth daily before breakfast. 20 Tablet 1 metoprolol tartrate (LOPRESSOR) 25 mg tablet Take 1 Tab by mouth 2 times amirah ly. 60 Tablet 5 NIFEdipine (PROCARDIA XL) 30 mg Extended Release 24 hour tablet Take 1 Tab b y mouth 2 times daily. 60 Tablet 5 dicyclomine (BENTYL) 20 mg tablet Take 1 Tab by mouth 4 times daily before m eals and at bedtime. 120 Tablet 5 furosemide (LASIX) 20 mg tablet Take 1 Tab by mouth daily. 30 Tablet 5 raloxifene (EVISTA) 60 mg tablet Take 1 Tab by mouth daily. 30 Tablet 5 gabapentin (NEURONTIN) 300 mg capsule Take 1 Capsule (300 mg) by mouth daily at bedtime. 90 Capsule 3 ALPRAZolam (XANAX) 0.25 mg tablet Take 1 Tablet (0.25 mg) by mouth 3 times d aily as needed for Anxiety. 90 Tablet 3 HYDROcodone-acetaminophen (NORCO) 5-325 mg tablet Take 1 Tablet by mouth inés ry 4 hours as needed for Pain, Moderate. 120 Tablet 0 ferrous sulfate (FEOSOL) 325 mg (65 mg iron) tablet Take 1 Tablet (325 mg) b y mouth 2 times daily. (Patient taking differently: Take 325 mg by mouth daily . ) 60 Tablet 3 0mega-3 fatty acids-vitamin E (FISH OIL) 1,000 mg Capsule Take 3 Capsule by mouth 2 times daily OMEGA RED. Current Facility-Administered Medications: lactated Ringers solution, , IV, Continuous, Gamal Rosen MD, Last Rate: 100 mL/hr at 08/09/17 0830 Allergies Allergen Reactions Allopurinol Rash Indomethacin Renal Dysfunctions Other Drug [Unclassified Drug] Other (See Comments) Horse serum Anesthesia Concerns The patient had 2 units of blood yesterday for severe anemia. ASA Risk ASA 3 - Patient with moderate systemic disease with functional limitations Plan: Monitoring explained. Airway assessment was perfomed; a Mallampati score of II (soft palate, uvula, fauces visible) was given. The risks and benefits of the p roposed anesthetic have been discussed with patient. The patient/designee has a greed to MAC with General as a backup. Anesthesia guideline orders initiated. Anesthesia Evaluation Anesthesia Plan ASA 3 MAC documented in this encounter Plan of Treatment Not on filedocumented as of this encounter Visit Diagnoses Not on filedocumented in this encounter Administered Medications Action Date Dose Rate Site Medication Order MAR Action 08/09/2017 11:12 AM CDT 50 mcg fentaNYL PF (SUBLIMAZE) 50 mcg/mL Given injection INTRA-PROCEDURE PRN, Starting Sat08/09/17 at 1112, Until Sat08/09/17 at 1142, Pain (See admin instructions), Routine, Anesthesia Intra-op 08/09/2017 11:10 AM CDT 2.5 mL lidocaine PF 2 % (XYLOCAINE MPF) Given injection INTRA-PROCEDURE PRN, Starting Sat08/09/17 at 1110, Until Sat08/09/17 at 1142, Other (See Comment), Routine, Anesthesia Intra-op 08/09/2017 11:10 AM CDT 2 mg midazolam (VERSED) injection Given INTRA-PROCEDURE PRN, Starting Sat08/09/17 at 1110, Until Sat08/09/17 at 1142, Routine, Anesthesia Intra-op 08/09/2017 11:10 AM CDT 75 mcg/kg/min 32.04 mL/hr propofol (DIPRIVAN) injection New Bag INTRA-PROCEDURE CONTINUOUS PRN, Startin g Sat08/09/17 at 1110, Until Sat08/09/17 at 1142, Anesthesia Intra-op documented in this encounter
--- OUTSIDE RECORDS SUMMARY | 2019-08-19 16:00 | XMS REPORT | Encounter Summary ---
Author Author [facility] Organization [facility] Address Unknown Phone Unavailable Care Team Providers Care Heading Repairer Name Role Phone Carlotta Aguayo MD PCP Unavailable Encounter Details Care Team Description Date Type Department Carlotta Aguayo MD NO ADDRESS ON FILE Ftsc, Outpt Lab 08/13/2017 [facility] Outpatient Encounter Laboratory [address] [address] Social History Date Tobacco Use [...] Name Priority Date/Time Associated Diag nosis CBC WITHOUT DIFFERENTIAL Routine 08/13/2017 Acute blood loss anemia 7:35 AM CDT HEMOGLOBIN A1C Stat 08/13/2017 Prediabetes 7:35 AM CDT COMPREHENSIVE METABOLIC Stat 08/13/[address] [facility] hypertension PANEL 7:35 AM CDT Prediabetes Renal insufficiency documented in this encounter Results * COMPREHENSIVE METABOLIC PANEL (08/13/2017 7:35 AM CDT) [facility] SODIUM 145 136 - 145 mmol/L [facility] - [place] POTASSIUM 3.5 3.5 - 5.1 mmol/L [facility]ORY [facility] - [place] CHLORIDE 105 98 - 107 mmol/L [facility] LABORATORY SERVICES - [facility] INDU CO2 22 22 - 29 mmol/L [facility] LABORATORY SERVICES - [facility] INDU CALCIUM 8.4 (L) 8.8 - 10.2 mg/dL [facility] - [place] BUN 11 8 - 23 mg/dL [facility] - [place] CREATININE 1.59 (H) 0.51 - 0.95 mg/dL [facility] Comment: LABORATORY The GFR result is not SERVICES - [facility] clinically significant on [place] patients <18 or >70 years of age. GLUCOSE 113 (H) 70 - 100 mg/dL [facility] - [place] TOTAL PROTEIN 6.3 (L) 6.6 - 8.7 g/dL [facility] - [place] ALBUMIN 3.7 3.5 - 5.2 g/dL [facility] - [place] BILIRUBIN TOTAL 0.2 <=1.2 mg/dL [facility] [place] ALKALINE 77 35 - 104 U/L [facility] PHOSPHATASE LABORATORY SERVICES - [place] AST 27 <=33 U/L [facility] - [place] ALT 22 10 - 35 U/L [facility] - [place] GFR 32 mL/min/1.73 sq meter [facility] Comment: LABORATORY eGFR has not been validated [facility] for use in the elderly (> [...] please refer to the GFR result. GFR, 38 mL/min/1.73 sq meter [facility] - [place] ANION GAP 18 4 - 20 mmol/L [facility] - [place] Specimen Blood Performing Organization Address [facility] one [facility] LABORATORY [facility] CLIA# [id number] [place] [address] * HEMOGLOBIN A1C (08/13/2017 7:35 AM CDT) HEMOGLOBIN A1C 5.5 4.8 - 5.9 % [facility] LABORATORY SERVICES [facility] INDU EST. AVG 111 mg/dL [facility] GLUCOSE, A1C LABORATORY SERVICES - [place] Specimen Blood Performing Organization Address [facility] Ph one [facility] LABORATORY [facility] CLIA# [id number] [place] [address] * CBC WITHOUT DIFFERENTIAL (08/13/2017 7:35 AM CDT) WBC 5.1 3.6 - 11.1 K/uL [facility] LABORATORY [facility] RBC 3.64 (L) 3.78 - 5.21 M/uL [facility] - [place] HEMOGLOBIN 8.5 (L) 11.1 - 15.5 g/dL [facility] LABORATORY [facility] - [place] HEMATOCRIT 29.4 (L) 34.3 - 46.7 % [facility] LABORATORY [facility] [place] MCV 80.8 (L) 82.7 - 97.1 fL [facility] - [place] MCH 23.4 (L) 27.1 - 32.3 pg [facility] - [place] MCHC 28.9 (L) 31.3 - 34.9 g/dL [facility] LABORATORY [facility] [place] PLATELETS 265 136 - 352 K/uL [facility] LABORATORY [facility] [place] MPV 10.0 8.6 - 11.8 fL [facility] LABORATORY [facility] [place] RDW 17.2 (H) 11.5 - 14.7 % [facility] [place] RDW-STDEV 50.4 (H) 37.2 - 47.6 fL [facility] LABORATORY [facility] [place] Specimen Blood Performing Organization Address City/State/Zipcode Ph one Number [facility] LABORATORY SERVICES CLIA# [id number] [place] [address] - [place] [address] documented in this encounter Visit Diagnoses Diagnosis Acute blood loss anemia Acute posthemorrhagic anemia Prediabetes Other abnormal glucose Essential hypertension Unspecified essential hypertension Renal insufficiency Unspecified disorder of kidney and uret er documented in this encounter
--- OUTSIDE RECORDS SUMMARY | 2019-08-19 16:00 | XMS REPORT | Encounter Summary ---
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 Name Role Phone Carlotta Aguayo MD PCP Unavailable Reason for Visit * Reason Comments Follow Up fu EGD Encounter Details Care Team Description Date Type Department Gamal Rosen MD NO ADDRESS ON FILE Hiatal hernia; Gastroesophageal reflux disease with esophagitis; Gastritis and duodenitis 08/15/2017 Office Visit [address] [id number] Social History Date Tobacco Use Types Packs/Day Years Used Never Smoker Smokeless Tobacco: Never Used Drinks/Week oz/Week Comments Alcohol Use No Sex Assigned at Date Recorded Not on file documented as of this encounter Last Filed Vital Signs Reading Time Taken Comments Vital Sign 110/58 08/15/2017 3:26 PM CDT Blood Pressure - - Pulse - - Temperature - - Respiratory Rate - - Oxygen Saturation - - Inhaled Oxygen Concentration 72.6 kg (160 lb) 08/15/2017 3:26 PM CDT Weight 152.4 cm (5') 08/15/2017 3:26 PM CDT Height 31.25 08/15/2017 3:26 PM CDT Body Mass Index documented in this encounter Progress Notes * Gamal Rosen MD - 08/16/2017 3:23 PM CDT Subjective: Patient had EGD recently due to finding of anemia. Large hiatal hernia found bu t patient denies any specific GERD or chest pressure. Current Outpatient Prescriptions Medication Sig Dispense Refill pantoprazole (PROTONIX) 40 mg Tablet, Delayed Release (E.C.) Take 1 Tablet ( 40 mg) by mouth daily before breakfast. 20 Tablet 1 metoprolol tartrate (LOPRESSOR) 25 mg tablet Take 1 Tab by mouth 2 times amirah ly. 60 Tablet 5 NIFEdipine (PROCARDIA XL) 30 mg Extended Release 24 hour tablet Take 1 Tab b y mouth 2 times daily. 60 Tablet 5 HYDROcodone-acetaminophen (NORCO) 5-325 mg tablet Take 1 Tablet by mouth inés ry 4 hours as needed for Pain, Moderate. 120 Tablet 0 dicyclomine (BENTYL) 20 mg tablet Take 1 [...] as needed for Anxiety. 90 Tablet 3 0mega-3 fatty acids-vitamin E (FISH OIL) 1,000 mg Capsule Take 3 Capsule by mouth 2 times daily OMEGA RED. No current facility-administered medications for this visit. Objective: BP 110/58 | Ht 5' (1.524 m) | Wt 72.6 kg (160 lb) | BMI 31.25 kg/m General appearance: alert, in no distress Abdomen: Soft, non-tender. Bowel sounds normal. No masses, no organomegaly. Hospital Encounter on 08/13/17 (from the past 336 hour(s)) CBC WITHOUT DIFFERENTIAL Collection Time: 08/13/17 7:35 AM Result Value Ref Range WBC 5.1 3.6 - 11.1 K/uL RBC 3.64 (L) 3.78 - 5.21 M/uL HEMOGLOBIN 8.5 (L) 11.1 - 15.5 g/dL HEMATOCRIT 29.4 (L) 34.3 - 46.7 % MCV 80.8 (L) 82.7 - 97.1 fL MCH 23.4 (L) 27.1 - 32.3 pg MCHC 28.9 (L) 31.3 - 34.9 g/dL PLATELETS 265 136 - 352 K/uL MPV 10.0 8.6 - 11.8 fL RDW 17.2 (H) 11.5 - 14.7 % RDW-STDEV 50.4 (H) 37.2 - 47.6 fL HEMOGLOBIN A1C Collection Time: 08/13/17 7:35 AM Result Value Ref Range HEMOGLOBIN A1C 5.5 4.8 - 5.9 % EST. AVG GLUCOSE, A1C 111 mg/dL COMPREHENSIVE METABOLIC PANEL Collection Time: 08/13/17 7:35 AM Result Value Ref Range SODIUM 145 136 - 145 mmol/L POTASSIUM 3.5 3.5 - 5.1 mmol/L CHLORIDE 105 98 - 107 mmol/L CO2 22 22 - 29 mmol/L CALCIUM 8.4 (L) 8.8 - 10.2 mg/dL BUN 11 8 - 23 mg/dL CREATININE 1.59 (H) 0.51 - 0.95 mg/dL GLUCOSE 113 (H) 70 - 100 mg/dL TOTAL PROTEIN 6.3 (L) 6.6 - 8.7 g/dL ALBUMIN 3.7 3.5 - 5.2 g/dL BILIRUBIN TOTAL 0.2 <=1.2 mg/dL ALKALINE PHOSPHATASE 77 35 - 104 U/L AST 27 <=33 U/L ALT 22 10 - 35 U/L GFR 32 mL/min/1.73 sq meter GFR, 38 mL/min/1.73 sq meter ANION GAP 18 4 - 20 mmol/L Hospital Encounter on 08/09/17 (from the past 336 hour(s)) EDUCATION UPPER GI ENDOSCOPY - ROMI Collection Time: 08/09/17 8:20 AM Result Value Ref Range Education Name UPPER GI ENDOSCOPY Education URL [email or web address] EDUCATION ACCESS CODE [id number] EDUCATION ISSUE DATE August 09, 2017 EDUCATION START DATE EDUCATION COMPLETED DATE EDUCATION EXPIRATION DATE Sep 08, 2017 EDUCATION MESSAGE EVENT Scheduled CBC WITHOUT DIFFERENTIAL Collection Time: 08/09/17 8:33 AM Result Value Ref Range WBC 6.1 3.6 - 11.1 K/uL NRBCS 1 (H) 0 - 0 % RBC 3.62 (L) 3.78 - 5.21 M/uL HEMOGLOBIN 8.7 (L) 11.1 - 15.5 g/dL HEMATOCRIT 28.9 (L) 34.3 - 46.7 % MCV 79.8 (L) 82.7 - 97.1 fL MCH 24.0 (L) 27.1 - 32.3 pg MCHC 30.1 (L) 31.3 - 34.9 g/dL PLATELETS 280 136 - 352 K/uL MPV 9.8 8.6 - 11.8 fL RDW 16.9 (H) 11.5 - 14.7 % RDW-STDEV 49.4 (H) 37.2 - 47.6 fL PATHOLOGY Collection Time: 08/09/17 11:23 AM Result Value Ref Range CASE REPORT Surgical Pathology Report Case: [id number] Authorizing Provider: Gamal Rosen MD Collected: 8 11:23 AM Ordering Location: [facility] Received: 8 12:04 PM Operating Room Pathologist: Med Su MD Specimens: A) - Duodenal biopsy. B) - Antral biopsy. C) - Body of stomach biopsy. D) - Gastroesophageal junction biopsy. FINAL DIAGNOSIS A) Small bowel, duodenum, biopsy: Focal acute duodenitis. B) Stomach, antrum, biopsy: Mild superficial chronic inflammation. C) Stomach, body, biopsy: Mild superficial chronic inflammation. D) Gastroesophageal junction, biopsy: 1. Moderate chronic gastritis. 2. Mildly reactive squamous esophageal epithelium. CPT Code: 65174d6 ICD10 Code: K29.80, K29.30 OPERATIVE PROCEDURE Esophagogastroduodenoscopy. GROSS DESCRIPTION A) The specimen is received in formalin and consists of a 0.8x0.2x0.2 cm dempsey- phillips soft tissue fragment entirely submitted. B) The specimen is received in formalin and consists of a 0.4x0.3x0.2 cm dempsey so ft tissue fragment entirely submitted. C) The specimen is received in formalin and consists of a 0.5x0.2x0.2 cm phillips sof t tissue fragment entirely submitted. D) The specimen is received in formalin and consists of a 0.5x0.3x0.1 cm dempsey so ft tissue fragment entirely submitted. MICROSCOPIC DESCRIPTION A) A fragment of small intestinal mucosa shows normal villous architecture. Th ere is no pathologic intraepithelial lymphocytosis. The lamina propria shows a n ormal number and distribution of leukocytes except that there is focal neutrophi lic inflammation with an area of reactive epithelium. A lymphoid aggregate is se en. Submucosal Sunday's glands are present but are not noted to extend signific antly into the lamina propria. B) A biopsy of gastric antral mucosa shows foveolar surface and pit epithelium. There is no intestinal metaplasia. The lamina propria does have mild lymphoplasm acytic inflammation. A Giemsa stain is noncontributory. C) A biopsy of gastric body mucosa shows foveolar surface and pit epithelium. Th e lamina propria has mild superficial lymphoplasmacytic inflammation and some co ngestion. There is no neutrophilic inflammation or intestinal metaplasia. D) A biopsy from the gastroesophageal junction shows stratified squamous esophag eal epithelium and a small amount of gastric mucosa. The squamous epithelium is tangentially sectioned. Fibrovascular papillae are congested. There are no intra epithelial neutrophils or eosinophils in the squamous epithelium. There is mild hyperplasia of the parabasal layer. The gastric mucosa shows foveolar epithelium without intestinal metaplasia or dysplasia. There is moderate lymphoplasmacytic inflammation in the lamina propria. HELICOBACTER PYLORI RAPID UREASE TEST Collection Time: 08/09/17 11:24 AM Result Value Ref Range H. PYLORI RAPID UREASE TEST Negative Negative Hospital Encounter on 08/07/17 (from the past 336 hour(s)) FERRITIN Collection Time: 08/07/17 11:56 AM Result Value Ref Range FERRITIN 7.0 (L) 15.0 - 150.0 ng/mL Narrative REFERENCE LAB ACC #: [id number] VERIFICATION BLOOD GROUP Collection Time: 08/07/17 11:56 AM Result Value Ref Range ABO GROUP A RH (D) TYPE Positive PREPARE RED BLOOD CELLS Collection Time: 08/07/17 3:53 PM Result Value Ref Range COMPONENT TYPE F7594L63 COMPONENT IDENTIFICATION [id number] UNIT ABO A UNIT RH POS COMPONENT STATUS Transfused COMPONENT EXPIRATION DATE/TIME [id number] COMPONENT CODING SYSTEM 6200 PREPARE RED BLOOD CELLS Collection Time: 08/07/17 3:53 PM Result Value Ref Range COMPONENT TYPE J1836S78 COMPONENT IDENTIFICATION [id number] UNIT ABO A UNIT RH POS COMPONENT STATUS Transfused COMPONENT EXPIRATION DATE/TIME [id number] COMPONENT CODING SYSTEM 6200 IP CONSULT TO GENERAL SURGERY Collection Time: 08/07/17 3:59 PM Narrative Gamal Rosen MD 08/08/2017 8:02 AM Subjective: Era Viveros is an 76 y.o. female who presents for evaluation of dizziness and weakness. Since last week, patient felt dizzy and weak. She was on iron replacement and when she found her stool very black, she stopped taking iron and noticed that her stool is still dark. Denies abdominal pain or rectal bleeding. Last colonoscopy was in May, rare diverticula found. Patient denies ever having a EGD. PCP found patient to have hemoglobin of less than 6; therefore, has been admitted for transfusion and surgical consultation. Past Medical History: Diagnosis Date Chronic ischemic heart disease, unspecified GERD (gastroesophageal reflux disease) Gout Status post colonoscopy with polypectomy 04/29/2009 Past Surgical History: Procedure Laterality Date NE COLONOSCOPY FLX DX W/COLLJ SPEC WHEN PFRMD 04/29/2009 COLONOSCOPY performed by GAMAL ROSEN at [facility] OR NE COLONOSCOPY FLX DX W/COLLJ SPEC WHEN PFRMD 04/18/2012 COLONOSCOPY performed by Gamal Rosen MD at [facility] OR NE COLONOSCOPY FLX DX W/COLLJ SPEC WHEN PFRMD N/A 06/07/2017 COLONOSCOPY performed by Gamal Rosen MD at [facility] OR NE LIGATE FALLOPIAN TUBE Family History Problem Relation Age of Onset Colon Cancer Father Other Mother aneurysm Hypertension Sister Hypertension Brother Diabetes Brother Other Paternal Grandfather of accident Healthy Son Current Facility-Administered Medications Medication Dose Route Frequency Provider Last Rate Last Dose ciprofloxacin HCl (CIPRO) tablet 250 mg 250 mg Oral q 12 hour (BID) Carlotta Aguayo MD naloxone (NARCAN) 0.4 mg/mL injection 0.1 mg 0.1 mg IV See Admin Notes Carlotta Aguayo MD sodium chloride 0.9% infusion IV Continuous Carlotta Aguayo MD 75 mL/hr at 08/08/17 0015 acetaminophen (TYLENOL) tablet 650 mg 650 mg Oral q 6 hour PRN Carlotta Aguayo MD ondansetron (ZOFRAN ODT) tablet 4 mg 4 mg Oral q 6 hour PRN Carlotta Aguayo MD docusate sodium (COLACE) capsule 100 mg 100 mg Oral BID Carlotta Aguayo MD 100 mg at 08/07/172010 sodium chloride flush injection 10 mL 10 mL IV See Admin Notes Carlotta Aguayo MD 10 mL at 08/07/172008 ALPRAZolam (XANAX) tablet 0.25 mg 0.25 mg Oral TID PRN Carlotta Aguayo MD dicyclomine (BENTYL) capsule 20 mg 20 mg Oral QID Meals Carlotta Aguayo MD 20 mg at 08/07/172013 furosemide (LASIX) tablet 20 mg 20 mg Oral Daily Carlotta Aguayo MD gabapentin (NEURONTIN) capsule 300 mg 300 mg Oral Daily BEDTIME Carlotta Aguayo MD 300 mg at 08/07/172010 NIFEdipine (ADALAT CC) SR tablet 30 mg 30 mg Oral Daily Carlotta Aguayo MD metoprolol tartrate (LOPRESSOR) tablet 25 mg 25 mg Oral BID Carlotta Aguayo MD 25 mg at 08/07/172011 pantoprazole (PROTONIX) tablet 40 mg 40 mg Oral AC Daily Breakfast Carlotta Aguayo MD 40 mg at 08/08/17 0633 Allergies Allergen Reactions Allopurinol Rash Indomethacin Renal Dysfunctions Other Drug [Unclassified Drug] Other (See Comments) Horse serum Social History Social History Marital status: Spouse name: N/A Number of children: N/A Years of education: N/A Occupational History Retired Social History Main Topics Smoking status: Never Smoker Smokeless tobacco: Never Used Alcohol use No Drug use: No Sexual activity: Not Currently Partners: Male Other Topics Concern Not on file Social History Narrative No narrative on file Review of Systems Pertinent positives noted in HPI. Remaining ROS negative and noncontributory. Objective: BP 130/65 (BP Location: Right arm, Patient Position (BP): Supine) | Pulse 89 | Temp 97.4 F (36.3 C) (Tympanic) | Resp 20 | Ht 5' 2" (1.575 m) | Wt 71.8 kg (158 lb 3 oz) | SpO2 97% | ? No | BMI 28.93 kg/m General: alert, in no distress Skin: Normal. Eyes: negative Mouth: MMM no lesions Lymph Nodes: deferred Lungs: normal respiratory effort Heart: regular rate and rhythm Abdomen: Soft, non-tender. Bowel sounds normal. No masses, no organomegaly. CVA: absent Genitourinary: defer exam Extremities: extremities normal, atraumatic, no cyanosis or edema, normal strength, normal tone Neurologic: negative Psychiatric: non focal Hospital Encounter on 08/07/17 (from the past 336 hour(s)) VERIFICATION BLOOD GROUP Collection Time: 08/07/17 11:56 AM Result Value Ref Range ABO GROUP A RH (D) TYPE Positive PREPARE RED BLOOD CELLS Collection Time: 08/07/17 3:53 PM Result Value Ref Range COMPONENT TYPE P6188Q02 COMPONENT IDENTIFICATION [id number] UNIT ABO A UNIT RH POS COMPONENT STATUS Issued COMPONENT EXPIRATION DATE/TIME [id number] COMPONENT CODING SYSTEM 6200 PREPARE RED BLOOD CELLS Collection Time: 08/07/17 3:53 PM Result Value Ref Range COMPONENT TYPE X2595L20 COMPONENT IDENTIFICATION [id number] UNIT ABO A UNIT RH POS COMPONENT STATUS Transfused COMPONENT EXPIRATION DATE/TIME [id number] COMPONENT CODING SYSTEM 6200 TYPE AND SCREEN Collection Time: 08/07/17 4:10 PM Result Value Ref Range ABO GROUP A RH (D) TYPE Positive ANTIBODY SCREEN Negative URINALYSIS WITH REFLEX MICROSCOPIC Collection Time: 08/07/17 8:51 PM Result Value Ref Range COLOR UA Colorless (A) Pale to dark yellow CLARITY UA Clear Clear SPECIFIC GRAVITY UA 1.007 1.003 - 1.035 PH UA 6.0 5.0 - 8.0 LEUKOCYTE ESTERASE UA 1+ (A) Negative NITRITE UA Positive (A) Negative PROTEIN UA Negative Negative GLUCOSE UA Negative Negative KETONES UA Negative Negative UROBILINOGEN UA <2.0 <2.0 mg/dL BILIRUBIN UA Negative Negative BLOOD UA Negative Negative WBC UA 3-5 (A) 0 - 2 /hpf RBC UA 0-2 0 - 2 /hpf BACTERIA UA 4+ (A) Negative /hpf EPITHELIAL CELLS, URINE 0-5 0 - 5 /hpf COMMENT, URINE Mucous: Few CBC WITH DIFFERENTIAL Collection Time: 08/08/17 5:40 AM Result Value Ref Range WBC 5.4 3.6 - 11.1 K/uL NRBCS 1 (H) 0 - 0 % RBC 3.10 (L) 3.78 - 5.21 M/uL HEMOGLOBIN 7.6 (L) 11.1 - 15.5 g/dL HEMATOCRIT 24.9 (L) 34.3 - 46.7 % MCV 80.3 (L) 82.7 - 97.1 fL MCH 24.5 (L) 27.1 - 32.3 pg MCHC 30.5 (L) 31.3 - 34.9 g/dL RDW 16.3 (H) 11.5 - 14.7 % RDW-STDEV 46.7 37.2 - 47.6 fL PLATELETS 229 136 - 352 K/uL MPV 10.1 8.6 - 11.8 fL NEUTROPHILS 55 44 - 74 % LYMPHOCYTES 27 16 - 44 % MONOCYTES 15 (H) 4 - 11 % EOSINOPHILS 3 0 - 6 % BASOPHILS 1 0 - 1 % IMMATURE GRANULOCYTES 0 0 - 1 % NEUTROPHIL ABSOLUTE 2.98 1.54 - 7.18 K/uL LYMPHOCYTE ABSOLUTE 1.45 0.69 - 3.61 K/uL MONOCYTE ABSOLUTE 0.80 0.19 - 0.95 K/uL EOSINOPHIL ABSOLUTE 0.15 0.00 - 0.44 K/uL BASOPHILS ABSOLUTE 0.03 0.00 - 0.10 K/uL IMMATURE GRANULOCYTES ABSOLUTE 0.02 0.00 - 0.09 K/uL Hospital Encounter on 08/07/17 (from the past 336 hour(s)) CBC WITH DIFFERENTIAL Collection Time: 08/07/17 11:56 AM Result Value Ref Range WBC 6.8 3.6 - 11.1 K/uL RBC 2.28 (L) 3.78 - 5.21 M/uL HEMOGLOBIN 5.2 (LL) 11.1 - 15.5 g/dL HEMATOCRIT 18.2 (L) 34.3 - 46.7 % MCV 79.8 (L) 82.7 - 97.1 fL MCH 22.8 (L) 27.1 - 32.3 pg MCHC 28.6 (L) 31.3 - 34.9 g/dL RDW 17.3 (H) 11.5 - 14.7 % RDW-STDEV 50.9 (H) 37.2 - 47.6 fL PLATELETS 303 136 - 352 K/uL MPV 9.9 8.6 - 11.8 fL NEUTROPHILS 69 44 - 74 % LYMPHOCYTES 20 16 - 44 % MONOCYTES 10 4 - 11 % EOSINOPHILS 1 0 - 6 % BASOPHILS 0 0 - 1 % IMMATURE GRANULOCYTES 0 0 - 1 % NEUTROPHIL ABSOLUTE 4.66 1.54 - 7.18 K/uL LYMPHOCYTE ABSOLUTE 1.33 0.69 - 3.61 K/uL MONOCYTE ABSOLUTE 0.69 0.19 - 0.95 K/uL EOSINOPHIL ABSOLUTE 0.08 0.00 - 0.44 K/uL BASOPHILS ABSOLUTE 0.03 0.00 - 0.10 K/uL IMMATURE GRANULOCYTES ABSOLUTE 0.02 0.00 - 0.09 K/uL COMPREHENSIVE METABOLIC PANEL Collection Time: 08/07/17 11:56 AM Result Value Ref Range SODIUM 142 136 - 145 mmol/L POTASSIUM 3.5 3.5 - 5.1 mmol/L CHLORIDE 104 98 - 107 mmol/L CO2 20 (L) 22 - 29 mmol/L CALCIUM 8.4 (L) 8.8 - 10.2 mg/dL BUN 18 8 - 23 mg/dL CREATININE 1.75 (H) 0.51 - 0.95 mg/dL GLUCOSE 107 (H) 70 - 100 mg/dL TOTAL PROTEIN 6.6 6.6 - 8.7 g/dL ALBUMIN 3.8 3.5 - 5.2 g/dL BILIRUBIN TOTAL 0.2 <=1.2 mg/dL ALKALINE PHOSPHATASE 77 35 - 104 U/L AST 23 <=33 U/L ALT 22 10 - 35 U/L GFR 28 mL/min/1.73 sq meter GFR, 34 mL/min/1.73 sq meter ANION GAP 18 4 - 20 mmol/L Hospital Encounter on 08/07/17 (from the past 336 hour(s)) CT HEAD WO CONTRAST Collection Time: 08/07/17 11:[address] HEAD WO CONTRAST History: 76 years Female with Dizzy spells, Imbalance Comparison: None. Technique: CT of the head without contrast. FINDINGS: BRAIN PARENCHYMA AND CSF SPACES: Mild leukoaraiosis and diffuse cortical atrophy. Mild atheromatous disease. No midline shift, mass effect or hemorrhage. The brain parenchyma and CSF spaces are otherwise normal. VISUALIZED PARANASAL SINUSES: Normal. MASTOIDS: Normal. BONES: Normal. SOFT TISSUES: Visualized nasopharynx is normal. Superficial soft tissues are normal. Impression IMPRESSION: No acute intracranial findings. Assessment: Discussed with patient recommendation for EGD and patient agrees to proceed. Plan: 1. Discussed the risk of EGD including bleeding and perforation, and the risks and reaction to anesthetic medications. The patient understands the risks, any and all questions were answered to the patient's satisfaction. 2. EGD with biopsies tomorrow, 08/09/2017. 3. If patient is discharged today, will arrange procedure as outpatient. TYPE AND SCREEN Collection Time: 08/07/17 4:10 PM Result Value Ref Range ABO GROUP A RH (D) TYPE Positive ANTIBODY SCREEN Negative URINE CULTURE Collection Time: 08/07/17 8:51 PM Result Value Ref Range CULTURE Klebsiella pneumoniae (A) Susceptibility Klebsiella pneumoniae - SADAF MCG/ML AMOXICILLIN/ CLAVULANATE <=8/4 Susceptible mcg/mL AMPICILLIN >16 Resistant mcg/mL CEFAZOLIN <=2 Susceptible mcg/mL CIPROFLOXACIN <=1 Susceptible mcg/mL GENTAMICIN <=4 Susceptible mcg/mL NITROFURANTOIN <=32 Susceptible mcg/mL TRIMETHOPRIM/ SULFAMETHOXAZOLE <=2/38 Susceptible mcg/mL Narrative REFERENCE LAB ACC #: [id number] URINALYSIS WITH REFLEX MICROSCOPIC Collection Time: 08/07/17 8:51 PM Result Value Ref Range COLOR UA Colorless (A) Pale to dark yellow CLARITY UA Clear Clear SPECIFIC GRAVITY UA 1.007 1.003 - 1.035 PH UA 6.0 5.0 - 8.0 LEUKOCYTE ESTERASE UA 1+ (A) Negative NITRITE UA Positive (A) Negative PROTEIN UA Negative Negative GLUCOSE UA Negative Negative KETONES UA Negative Negative UROBILINOGEN UA <2.0 <2.0 mg/dL BILIRUBIN UA Negative Negative BLOOD UA Negative Negative WBC UA 3-5 (A) 0 - 2 /hpf RBC UA 0-2 0 - 2 /hpf BACTERIA UA 4+ (A) Negative /hpf EPITHELIAL CELLS, URINE 0-5 0 - 5 /hpf COMMENT, URINE Mucous: Few CBC WITH DIFFERENTIAL Collection Time: 08/08/17 5:40 AM Result Value Ref Range WBC 5.4 3.6 - 11.1 K/uL NRBCS 1 (H) 0 - 0 % RBC 3.10 (L) 3.78 - 5.21 M/uL HEMOGLOBIN 7.6 (L) 11.1 - 15.5 g/dL HEMATOCRIT 24.9 (L) 34.3 - 46.7 % MCV 80.3 (L) 82.7 - 97.1 fL MCH 24.5 (L) 27.1 - 32.3 pg MCHC 30.5 (L) 31.3 - 34.9 g/dL RDW 16.3 (H) 11.5 - 14.7 % RDW-STDEV 46.7 37.2 - 47.6 fL PLATELETS 229 136 - 352 K/uL MPV 10.1 8.6 - 11.8 fL NEUTROPHILS 55 44 - 74 % LYMPHOCYTES 27 16 - 44 % MONOCYTES 15 (H) 4 - 11 % EOSINOPHILS 3 0 - 6 % BASOPHILS 1 0 - 1 % IMMATURE GRANULOCYTES 0 0 - 1 % NEUTROPHIL ABSOLUTE 2.98 1.54 - 7.18 K/uL LYMPHOCYTE ABSOLUTE 1.45 0.69 - 3.61 K/uL MONOCYTE ABSOLUTE 0.80 0.19 - 0.95 K/uL EOSINOPHIL ABSOLUTE 0.15 0.00 - 0.44 K/uL BASOPHILS ABSOLUTE 0.03 0.00 - 0.10 K/uL IMMATURE GRANULOCYTES ABSOLUTE 0.02 0.00 - 0.09 K/uL OCCULT BLOOD GUAIAC DIAGNOSTIC Collection Time: 08/08/17 10:37 AM Result Value Ref Range OCCULT BLOOD, STOOL Positive (A) Negative CBC WITH DIFFERENTIAL Collection Time: 08/08/17 1:25 PM Result Value Ref Range WBC 5.8 3.6 - 11.1 K/uL NRBCS 1 (H) 0 - 0 % RBC 3.72 (L) 3.78 - 5.21 M/uL HEMOGLOBIN 8.9 (L) 11.1 - 15.5 g/dL HEMATOCRIT 29.7 (L) 34.3 - 46.7 % MCV 79.8 (L) 82.7 - 97.1 fL MCH 23.9 (L) 27.1 - 32.3 pg MCHC 30.0 (L) 31.3 - 34.9 g/dL RDW 16.4 (H) 11.5 - 14.7 % RDW-STDEV 47.1 37.2 - 47.6 fL PLATELETS 273 136 - 352 K/uL MPV 9.6 8.6 - 11.8 fL NEUTROPHILS 63 44 - 74 % LYMPHOCYTES 22 16 - 44 % MONOCYTES 12 (H) 4 - 11 % EOSINOPHILS 3 0 - 6 % BASOPHILS 1 0 - 1 % IMMATURE GRANULOCYTES 1 0 - 1 % NEUTROPHIL ABSOLUTE 3.63 1.54 - 7.18 K/uL LYMPHOCYTE ABSOLUTE 1.26 0.69 - 3.61 K/uL MONOCYTE ABSOLUTE 0.67 0.19 - 0.95 K/uL EOSINOPHIL ABSOLUTE 0.16 0.00 - 0.44 K/uL BASOPHILS ABSOLUTE 0.04 0.00 - 0.10 K/uL IMMATURE GRANULOCYTES ABSOLUTE 0.04 0.00 - 0.09 K/uL Hospital Encounter on 08/07/17 (from the past 336 hour(s)) CBC WITH DIFFERENTIAL Collection Time: 08/07/17 11:56 AM Result Value Ref Range WBC 6.8 3.6 - 11.1 K/uL RBC 2.28 (L) 3.78 - 5.21 M/uL HEMOGLOBIN 5.2 (LL) 11.1 - 15.5 g/dL HEMATOCRIT 18.2 (L) 34.3 - 46.7 % MCV 79.8 (L) 82.7 - 97.1 fL MCH 22.8 (L) 27.1 - 32.3 pg MCHC 28.6 (L) 31.3 - 34.9 g/dL RDW 17.3 (H) 11.5 - 14.7 % RDW-STDEV 50.9 (H) 37.2 - 47.6 fL PLATELETS 303 136 - 352 K/uL MPV 9.9 8.6 - 11.8 fL NEUTROPHILS 69 44 - 74 % LYMPHOCYTES 20 16 - 44 % MONOCYTES 10 4 - 11 % EOSINOPHILS 1 0 - 6 % BASOPHILS 0 0 - 1 % IMMATURE GRANULOCYTES 0 0 - 1 % NEUTROPHIL ABSOLUTE 4.66 1.54 - 7.18 K/uL LYMPHOCYTE ABSOLUTE 1.33 0.69 - 3.61 K/uL MONOCYTE ABSOLUTE 0.69 0.19 - 0.95 K/uL EOSINOPHIL ABSOLUTE 0.08 0.00 - 0.44 K/uL BASOPHILS ABSOLUTE 0.03 0.00 - 0.10 K/uL IMMATURE GRANULOCYTES ABSOLUTE 0.02 0.00 - 0.09 K/uL COMPREHENSIVE METABOLIC PANEL Collection Time: 08/07/17 11:56 AM Result Value Ref Range SODIUM 142 136 - 145 mmol/L POTASSIUM 3.5 3.5 - 5.1 mmol/L CHLORIDE 104 98 - 107 mmol/L CO2 20 (L) 22 - 29 mmol/L CALCIUM 8.4 (L) 8.8 - 10.2 mg/dL BUN 18 8 - 23 mg/dL CREATININE 1.75 (H) 0.51 - 0.95 mg/dL GLUCOSE 107 (H) 70 - 100 mg/dL TOTAL PROTEIN 6.6 6.6 - 8.7 g/dL ALBUMIN 3.8 3.5 - 5.2 g/dL BILIRUBIN TOTAL 0.2 <=1.2 mg/dL ALKALINE PHOSPHATASE 77 35 - 104 U/L AST 23 <=33 U/L ALT 22 10 - 35 U/L GFR 28 mL/min/1.73 sq meter GFR, 34 mL/min/1.73 sq meter ANION GAP 18 4 - 20 mmol/L Hospital Encounter on 08/07/17 (from the past 336 hour(s)) CT HEAD WO CONTRAST Collection Time: 08/07/17 11:[address] HEAD WO CONTRAST History: 76 years Female with Dizzy spells, Imbalance Comparison: None. Technique: CT of the head without contrast. FINDINGS: BRAIN PARENCHYMA AND CSF SPACES: Mild leukoaraiosis and diffuse cortical atrophy. Mild atheromatous disease. No midline shift, mass effect or hemorrhage. The brain parenchyma and CSF spaces are otherwise normal. VISUALIZED PARANASAL SINUSES: Normal. MASTOIDS: Normal. BONES: Normal. SOFT TISSUES: Visualized nasopharynx is normal. Superficial soft tissues are normal. Impression IMPRESSION: No acute intracranial findings. Assessment: Encounter Diagnoses Name Primary? Hiatal hernia Gastroesophageal reflux disease with esophagitis Gastritis and duodenitis No complication from EGD. As patient not symptomatic with large hiatal hernia, no plan for referral for surgical intervention. Plan: No orders of the defined types were placed in this encounter. Follow up with PCP for anemia. Follow up with me as needed. documented in this encounter Plan of Treatment Not on filedocumented as of this encounter Visit Diagnoses Diagnosis Hiatal hernia Diaphragmatic hernia without mention of obstruction or gangrene Gastroesophageal reflux disease with es ophagitis Gastritis and duodenitis Unspecified gastritis and gastroduodeni tis without mention of hemorrhage documented in this encounter
--- OUTSIDE RECORDS SUMMARY | 2019-08-19 16:00 | XMS REPORT | Encounter Summary ---
Author Author [facility] Organization [facility] Address Unknown Phone Unavailable Care Team Providers Care Records Administrator Name Role Phone Carlotta Aguayo MD PCP Unavailable Reason for Visit * Reason Comments Follow Up 3 mo Results lab Post Hospital Check Medication Question discuss fish oil Encounter Details Care Team Description Date Type Department Carlotta Aguayo MD NO ADDRESS ON FILE Acute blood loss anemia (Primary Dx); Essential hypertension; Other hyperlipidemia; Hospital discharge follow-up 08/13/2017 Office Visit [address] [address] Social History Date Tobacco Use Types Packs/Day Years Used Never Smoker Smokeless Tobacco: Never Used Drinks/Week oz/Week Comments Alcohol Use No Sex Assigned at Date Recorded Not on file documented as of this encounter Last Filed Vital Signs Reading Time Taken Comments Vital Sign 110/66 08/13/2017 9:05 AM CDT Blood Pressure - - Pulse 37.4 C (99.4 F) 08/13/2017 9:05 AM CDT Temperature - - Respiratory Rate - - Oxygen Saturation - - Inhaled Oxygen Concentration 72.8 kg (160 lb 8 oz) 08/13/2017 9:05 AM CDT Weight 152.4 cm (5') 08/13/2017 9:05 AM CDT Height 31.35 08/13/2017 9:05 AM CDT Body Mass Index documented in this encounter Progress Notes * Carlotta Aguayo MD - 08/24/2017 5:14 PM CDT HISTORY OF PRESENT ILLNESS Era Viveros, a 76 y.o. female presents with a Chief Complaint of Follow Up (3 mo); Results (lab); Post Hospital Check; and Medication Question (discuss fis h oil) Subjective HPI here with follow up hospitalization with acute upper gi bleed and anemia wit h transfusion. follow up hypertension and lipid issues. REVIEW OF SYSTEMS Review of Systems Constitutional: Positive for fatigue. Negative for activity change, appetite tram nge, chills, fever and unexpected weight change. HENT: Negative for congestion. Eyes: Negative for visual disturbance. Respiratory: Negative for cough. Genitourinary: Negative for menstrual problem. Musculoskeletal: Negative for back pain. Neurological: Positive for weakness. Negative for headaches. Objective PHYSICAL EXAM BP 110/66 | Temp 99.4 F (37.4 C) | Ht 5' (1.524 m) | Wt 72.8 kg (160 lb 8 oz) | BMI 31.35 kg/m Physical Exam Constitutional: She is oriented [...] reviewed. Lab Results Component Value Date/Time WBC 7.0 08/19/2017 09:12 AM HGB 8.8 (L) 08/19/2017 09:12 AM HCT 30.6 (L) 08/19/2017 09:12 AM PLT 329 08/19/2017 09:12 AM MCV 79.7 (L) 08/19/2017 09:12 AM Lab Results Component Value Date/Time NA 139 08/19/2017 09:12 AM K 3.8 08/19/2017 09:12 AM CL 99 08/19/2017 09:12 AM CO2 22 08/19/2017 09:12 AM CA 8.5 (L) 08/19/2017 09:12 AM BUN 12 08/19/2017 09:12 AM CREAT 1.50 (H) 08/19/2017 09:12 AM GLUCOSE 116 (H) 08/19/2017 09:12 AM TOTALPROTEIN 6.8 08/19/2017 09:12 AM ALBUMIN 3.8 08/19/2017 09:12 AM BILITOTAL 0.2 08/19/2017 09:12 AM ALKPHOS 86 08/19/2017 09:12 AM AST 34 (H) 08/19/2017 09:12 AM ALT 31 08/19/2017 09:12 AM ANIONGAP 18 08/19/2017 09:12 AM BCRATIO 13.5 03/06/2012 07:50 AM Procedures Assessment ASSESSMENT and PLAN: ICD-10-CM ICD-9-CM 1. Acute blood loss anemia D62 285.1 CBC WITH DIFFERENTIAL 2. Essential hypertension I10 401.9 3. Other hyperlipidemia E78.4 272.4 4. Hospital discharge follow-up Z09 V67.59 Current Outpatient Prescriptions: pantoprazole (PROTONIX) 40 mg [...] CDT) WBC 7.0 3.6 - 11.1 K/uL [facility] [place] [facility] RBC 3.84 3.78 - 5.21 M/uL [facility] [place] [facility] HEMOGLOBIN 8.8 (L) 11.1 - 15.5 g/dL [facility] [place] [facility] HEMATOCRIT 30.6 (L) 34.3 - 46.7 % [facility] [place] [facility] MCV 79.7 (L) 82.7 - 97.1 fL [facility] [place] [facility] MCH 22.9 (L) 27.1 - 32.3 pg [facility] [place] [facility] MCHC 28.8 (L) 31.3 - 34.9 g/dL [facility] [place] [facility] RDW 17.4 (H) 11.5 - 14.7 % [facility] INDU RDW-STDEV 50.5 (H) 37.2 - 47.6 fL [facility] INDU PLATELETS 329 136 - 352 K/uL [facility] [place] [facility] MPV 9.7 8.6 - 11.8 fL [facility] INDU NEUTROPHILS 72 44 - 74 % [facility] INDU LYMPHOCYTES 16 16 - 44 % [facility] INDU MONOCYTES 10 4 - 11 % [facility] EOSINOPHILS 1 0 - 6 % [facility] INDU BASOPHILS 1 0 - 1 % [facility] INDU IMMATURE 0 0 - 1 % [facility] [place] NEUTROPHIL 5.03 1.54 - 7.18 K/uL [facility] [place] LYMPHOCYTE 1.10 0.69 - 3.61 K/uL [facility] [place] [facility] MONOCYTE 0.69 0.19 - 0.95 K/uL [facility] [place] [facility] EOSINOPHIL 0.09 0.00 - 0.44 K/uL [facility] [place] [facility] BASOPHILS 0.07 0.00 - 0.10 K/uL [facility] [place] [facility] IMMATURE 0.01 0.00 - 0.09 K/uL [facility] [place] Specimen Blood Performing Organization Address City/State/Zipcode Ph one Number [facility] CLIA# [id number] [place] [address] [place] [address] [place] [address] [address] documented in this encounter Visit Diagnoses Diagnosis Acute blood loss anemia Acute posthemorrhagic anemia Essential hypertension Unspecified essential hypertension Other hyperlipidemia Hospital discharge follow-up Other follow-up examination documented in this encounter"
--- OUTSIDE RECORDS SUMMARY | 2019-08-19 16:00 | XMS REPORT | Encounter Summary ---
Author Author [facility] Organization [facility] Address Unknown Phone Unavailable Care Team Providers Care Excellence Specialist Name Role Phone Carlotta Aguayo MD PCP Unavailable Encounter Details Care Team Description Date Type Department Carlotta Aguayo MD NO ADDRESS ON FILE Gout, unspecified cause, unspecified chr onicity, unspecified site (Primary Dx) 08/19/2017 Orders Only [facility] [address] [id number] Social History Date Tobacco Use Types Packs/Day Years Used Never Smoker Smokeless Tobacco: Never Used Drinks/Week oz/Week Comments Alcohol Use No Sex Assigned at Date Recorded Not on file documented as of this encounter Plan of Treatment Not on filedocumented as of this encounter Results * COMPREHENSIVE METABOLIC PANEL (08/19/2017 9:12 AM CDT) SODIUM 139 136 - 145 mmol/L [facility] POTASSIUM 3.8 3.5 - 5.1 mmol/L [facility] CHLORIDE 99 98 - 107 mmol/L [facility] CO2 22 22 - 29 mmol/L [facility] CALCIUM 8.5 (L) 8.8 - 10.2 mg/dL [facility] BUN 12 8 - 23 mg/dL [facility] CREATININE 1.50 (H) 0.51 - 0.95 mg/dL [facility] Comment: LABORATORY The GFR result is not SERVICES - [facility] clinically significant [facility] patients <18 or >70 years of age. GLUCOSE 116 (H) 70 - 100 mg/dL [facility] SERVICES - [facility] INDU TOTAL PROTEIN 6.8 6.6 - 8.7 g/dL [facility] [place] ALBUMIN 3.8 3.5 - 5.2 g/dL [facility] [place] BILIRUBIN TOTAL 0.2 <=1.2 mg/dL [facility] [place] ALKALINE 86 35 - 104 U/L [facility] PHOSPHATASE [facility]ATORY [facility] [place] AST 34 (H) <=33 U/L [facility] [place] ALT 31 10 - 35 U/L [facility] [place] GFR 34 mL/min/1.73 sq meter [facility] Comment: LABORATORY eGFR has not been validated [facility] for use in the elderly (> [...] GFR result. GFR, 41 mL/min/1.73 sq meter [facility] LAB[facility]ATORY SERVICES - [facility] INDU ANION GAP 18 4 - 20 mmol/L [facility] [place] Specimen Blood Performing Organization Address [facility] one [facility] LABORATORY [facility] CLIA# [id number] KRISTA LAUREN [phone] * URIC ACID (08/19/2017 9:12 AM CDT) URIC ACID 8.6 (H) 2.4 - 5.7 mg/dL [facility] [place] Specimen Blood Performing Organization Address [facility] Ph one Ken [facility] [employer] [facility] CLIA# [id number] KRISTA LAUREN [address] documented in this encounter Visit Diagnoses Diagnosis Gout, unspecified cause, unspecified ch ronicity, unspecified site documented in this encounter
--- OUTSIDE RECORDS SUMMARY | 2019-08-19 16:01 | XMS REPORT | Encounter Summary ---
Author Author [facility] Organization [facility] Address Unknown Phone Unavailable Care Team Providers Care Metal Bonding Helper Name Role Phone Carlotta Aguayo MD PCP Unavailable Reason for Visit * Auth/Cert Referred By Contact Referred To Contact Status Reason Specialty Diagnoses / Procedures [facility] Operating Room [address] [place] [address] Procedures COLONOSCOPY Encounter Details Care Team Description Date Type Department Vandana Rosen MD NO ADDRESS ON FILE 06/07/2017 Hospital [facility] ort Encounter Lenny Pre Post Op [address] [place] [address] Social History Date Tobacco Use Types Packs/Day Years Used Never Smoker Smokeless Tobacco: Never Used Drinks/Week oz/Week Comments Alcohol Use No Sex Assigned at Date Recorded Not on file documented as of this encounter Last Filed Vital Signs Reading Time Taken Comments Vital Sign 115/66 06/07/2017 8:55 AM MFTS Blood Pressure 88 06/07/2017 8:55 AM MFTS Pulse 37.1 C (98.7 F) 06/07/2017 8:55 AM MFTS Temperature 16 06/07/2017 8:55 AM MFTS Respiratory Rate - - Oxygen Saturation - - Inhaled Oxygen Concentration 73 kg (161 lb) 06/07/2017 7:45 AM MFTS Weight 152.4 cm (5') 06/07/2017 7:45 AM MFTS Height 31.44 06/07/2017 7:45 AM MFTS Body Mass Index documented in this encounter Discharge Instructions * Instructions* Mireya Gold RN - 06/07/2017 1. Call office, , for any questions. Office hours are 8 am to 5 pm Saturday to , and 8 am to 12 noon on Saturday. 2. Follow up with Dr. Rosen on . 3. Resume aspirin on Saturday. 4. May take Tylenol 325 mg to 650 mg every 6 hours as needed for mild pain. FOLLOW-UP Follow up with Dr. Rosen on June 13 at 2:45 PM. ACTIVITY It is essential that someone accompany you home if you received sedation. You sh ould not drive a car, operate machinery, or drink alcohol today. The effects of the test and medications should wear off by the next day and you will be able to resume your normal activities at that time. Rest for the rest of the day. SMOKING If you smoke you are advised to quit. Ask your health care provider for advice if you need assistance to stop smoking. Avoid second-hand smoke exposure and do not let people smoke in your home. DIET You may resume your normal diet unless otherwise instructed by your doctor. We r ecommend a low-fat, high-fiber diet. Start out with a snack or light meal then p rogress to your regular diet. WOUND CARE There may be some slight soreness where the scope has been, but this will wear o ff in a day or so. It is normal to experience some bloating and/or gas pain if air has remained in your stomach and/or bowel. This should resolve within a few hours. SPECIMENS If specimens have been taken for analysis, the results may take several days. Yo physician will review the results with you during your next appointment. SIGNS AND SYMPTOMS TO REPORT Contact your health care provider if you experience any of the following symptom s: -Severe pain or vomiting -Passage or vomiting of blood -Temperature greater than 101 -Redness, tenderness and swelling at site of IV that persists greater than 48 ho urs Please call your physician if you have any questions or problems. After clinic hours, please call 911 or come to the emergency room if you experie nce the above symptoms. * Attachments The following attachments cannot be sent through Care Everywhere.* Colonoscopy: Post-op ([facility]) * Colon Polyps ([facility]) * Hemorrhoids ([facility]) documented in this encounter Medications at Time of Discharge Start Date End Date Medication Sig Dispensed Refills 0mega-3 fatty Take 2 0 acids-vitamin E (FISH Capsules by OIL) 1,000 mg Capsule mouth 2 times daily OMEGA RED. 06/04/2017 08/05/2017 metoprolol tartrate Take 1 Tab by 60 Tablet 1 (LOPRESSOR) 25 mg tablet mouth 2 times daily. 06/04/2017 08/05/2017 NIFEdipine (PROCARDIA XL) Take 1 Tab by 60 Tablet 1 30 mg Extended Release 24 mouth 2 times hour tablet daily. 05/28/2017 11/18/2017 raloxifene (EVISTA) 60 mg Take 1 Tab by 30 Tablet 5 tablet mouth daily. 05/16/2017 05/20/2018 gabapentin (NEURONTIN) Take 1 90 Capsule 3 300 mg Capsule (300 capsuleIndications: mg) by mouth Neuropathy daily at bedtime. 05/14/2017 06/11/2017 furosemide (LASIX) 20 mg Take 1 Tab by 30 Tablet 0 tablet mouth daily. 04/02/2017 07/23/2017 probenecid-colchicine Take 1 Tab by 60 Tablet 0 (COLBENEMID) 0.5-500 mg mouth daily. 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 06/18/2016 06/24/2017 dicyclomine (BENTYL) 20 Take 1 Tab by 120 Tablet 5 mg tablet mouth 4 times daily before meals and at bedtime. 02/16/2016 10/16/2017 ALPRAZolam (XANAX) 0.25 Take 1 Tablet 90 Tablet 3 mg tabletIndications: (0.25 mg) by Anxiety mouth 3 times daily as needed for Anxiety. 08/08/2017 lansoprazole (PREVACID) Take 15 mg by 0 15 mg Oral mouth 1 time CpDRIndications: DA daily as (degenerative arthritis), needed . Hyperlipidemia 08/08/2017 aspirin (BABY ASPIRIN) 81 Take 81 mg by 0 mg Oral Chew mouth every other day . documented as of this encounter H&P Notes * Vandana Rosen MD - 06/07/2017 8:13 AM MFTS Patient examined; history and physical reviewed and no changes noted. Will proc eed with colonoscopy, possible biopsy. documented in this encounter OR Notes * Operative Report - Vandana Rosen MD - 06/07/2017 8:44 AM MFTS Colonoscopy Procedure Note Procedure: Colonoscopy --screening Pre-operative Diagnosis: screening for malignancy of colon and rectum, previous adenomatous polyp Post-operative Diagnosis: same, rare diverticula, external hemorrhoids, polyps a t 70 cm and 50 cm from anal verge Indications: previous adenomatous polyp, screening for colon cancer Sedation: Demerol 50 mg IV, Versed 4 mg IV Pre-Procedure Physical: Current Facility-Administered Medications Medication Dose Route Frequency Provider Last Rate Last Dose sodium chloride flush injection 10 mL 10 mL IV See Admin Notes Je Rosen MD 10 mL at 06/07/17 0754 meperidine (PF) (DEMEROL) injection Intra-Proc Once PRN Vandana Rosen M D 50 mg at 06/07/17 0817 midazolam (VERSED) injection Intra-Proc Once PRN Vandana Rosen MD 4 m g at 06/07/17 0817 sodium chloride flush injection Intra-Proc Once PRN Vandana Rosen MD 10 mL at 06/07/17 0817 Allergies: Allopurinol; Indomethacin; and Other drug [unclassified drug] BP (!) 145/72 (BP Location: Left arm) | Pulse 88 | Temp 98.7 F (37.1 C) (T emporal) | Resp 16 | Ht 5' (1.524 m) | Wt 73 kg (161 lb) | BMI 31.44 kg/m Airway: normal Heart: normal S1 and S2 Lungs: clear Abdomen: soft, nontender, normal bowel sounds Mental Status: awake and alert; oriented to person, place, and time Procedure Details Informed consent was obtained for the procedure, including sedation. Risks of p erforation, hemorrhage, adverse drug reaction and aspiration were discussed. The patient was placed in the left lateral decubitus position. Based on the pre-pr ocedure assessment, including review of the patient's medical history, medicatio ns, allergies, and review of systems, she had been deemed to be an appropriate c andidate for conscious sedation; she was therefore sedated with the medications listed below. The patient was monitored continuously with ECG tracing, pulse o ximetry, blood pressure monitoring, and direct observations. A rectal examination was performed. The Olympus colonoscope was inserted into t he rectum and advanced under direct vision to the cecum, which was identified by the ileocecal valve and appendiceal orifice. The quality of the colonic prepar ation was satisfactory. A careful inspection was made as the colonoscope was wi thdrawn, including a retroflexed view of the rectum; findings and interventions are described below. Appropriate photodocumentation was obtained. Findings: -hemorrhoids (external), Moderate in size -polyp(s) - #1, 5 mm in size, Sessile, 70 cm from anal verge, removed by cold bi opsy and sent for pathology, - #2, 5 mm in size, Sessile, 50 cm from anal verge , removed by cold biopsy and sent for pathology -rare diverticula in transverse colon Specimens: biopsies of polyps at 50 cm and 70 cm from anal verge Complications: None; patient tolerated the procedure well. Impression: -See post-procedure diagnoses. Recommendations: -Await pathology., -If adenoma is present, repeat colonoscopy in 5 years., -Foll ow up with me. documented in this encounter Plan of Treatment Not on filedocumented as of this encounter Procedures Comments Procedure Name Priority Date/Time Associated Diag nosis PATHOLOGY Pathology 06/07/2017 8:25 AM MFTS COLONOSCOPY 06/07/2017 7:55 AM MFTS documented in this encounter Results * PATHOLOGY (06/07/2017 8:25 AM MFTS) CASE REPORT Surgical Pathology Report [facility] Case: [id number] [facility] [place] Authorizing Provider: Vandana Rosen MD Collected: 06/07/2017 08:25 AM Ordering Location: [facility] Received: 06/07/2017 09:43 AM Operating Room Pathologist: Ciaran Merino MD Specimens: A) - Biopsy of colon polyp at 70 cm. B) - Biopsy of colon polyp at 50 cm. FINAL DIAGNOSIS A) Biopsy, colon polyp at 70 [facility] Electronically cm: Tubular adenoma. PATHOLOGY signed by Haley, B) Biopsy, colon polyp at 50 [facility]ULTANTSMICHAEL MD on cm: Tubular adenoma. 06/10/2017 at 11:34 CPT Code: [id number] AM ICD10 Code: D12.4 and D12.5 OPERATIVE Colonoscopy. [facility] PROCEDURE PATHOLOGY [facility] GROSS The specimen is received in [facility] DESCRIPTION two parts. PATHOLOGY A) Part A is labeled biopsy [facility]ULTANT[facility] Corey of polyp at 70 cm. Received in formalin are five pieces of phillips tissue ranging from 0.2x0.1x0.1 cm up to 0.4x0.2x0.2 cm. Submitted in toto in one cassette. B) Part B is labeled colon biopsy of polyp at 60 cm. Received in formalin are two pieces of phillips tissue measuring 0.3x0.2x0.2 cm and 0.4x0.2x0.2 cm. Submitted in toto in one cassette. MICROSCOPIC A) Sections reveal adenomatous MIDW[place] T DESCRIPTION changes in the mucosa. Altered PATHOL OGY crypts are seen, lined by [facility] Corey columnar cells with enlarged, hyperchromatic nuclei. Invasive neoplasm is not identified. B) Sections reveal adenomatous changes. Altered crypts are seen, lined by columnar cells with enlarged, hyperchromatic nuclei. Invasive neoplasm is not identified. Specimen Tissue Tissue specimen (specimen) Performing Organization Address City/State/Zipcode Ph one Number [facility] CLIA # [id number] [place] [address] [employer]SULTANTSM[facility]EL [address] [place] [address] documented in this encounter Visit Diagnoses Diagnosis Status post colonoscopy with polypectom y Other postprocedural status documented in this encounter Administered Medications Action Date Dose Rate Site Medication Order MAR Action SODIUM CHLORIDE 0.9 % INJECTION SYRINGE (CABINET OVERRIDE) 1 dose, Starting Sat06/07/17 at 0733, Until 06/07/17 at 0754, [place] OMNICELL: cabinet override, 06/07/2017 7:54 AM MFTS 10 mL sodium chloride flush injection 10 mL Given 10 mL, IV, SEE ADMIN INSTRUCTIONS, Starting 06/07/17 at 0729, Until 06/08/17 at 0208, Routine, Pre-op documented in this encounter"
--- OUTSIDE RECORDS SUMMARY | 2019-08-19 16:01 | XMS REPORT | Encounter Summary ---
Author Author [facility] Organization [facility] Address Unknown Phone Unavailable Care Team Providers Care Hand I Tube Bender Name Role Phone Carlotta Aguayo MD PCP Unavailable Reason for Referral * Outpatient Services (Urgent) Referred By Contact Referred To Contact Status Reason Specialty Diagnoses / Procedures Carlotta Aguayo MD NO ADDRESS ON FILE Closed Diagnoses Dizzy spells Imbalance P rocedures CT HEAD WO CONTRAST Reason for Visit * Reason Comments Dizziness since 08/01/17, head swirli ng Encounter Details Care Team Description Date Type Department Carlotta Aguayo MD NO ADDRESS ON FILE Essential hypertension (Primary Dx); Dizzy spells; Imbalance; Acute blood loss anemia 08/07/2017 Office Visit [address] [address] Social History Date Tobacco Use Types Packs/Day Years Used Never Smoker Smokeless Tobacco: Never Used Drinks/Week oz/Week Comments Alcohol Use No Sex Assigned at Date Recorded Not on file documented as of this encounter Last Filed Vital Signs Reading Time Taken Comments Vital Sign 100/52 08/07/2017 10:45 AM CDT Blood Pressure - - Pulse 37.5 C (99.5 F) 08/07/2017 10:45 AM CDT Temperature - - Respiratory Rate - - Oxygen Saturation - - Inhaled Oxygen Concentration 71.2 kg (157 lb) 08/07/2017 10:45 AM CDT Weight 152.4 cm (5') 08/07/2017 10:45 AM CDT Height 30.66 08/07/2017 10:45 AM CDT Body Mass Index documented in this encounter Progress Notes * Carlotta Aguayo MD - 08/07/2017 11:17 AM CDT HISTORY OF PRESENT ILLNESS Era Viveros, a 76 y.o. female presents with a Chief Complaint of Dizziness (since 08/01/17, head swirling) Subjective HPI here with 1 week increasing symptoms of "dizziness" and sensation "something in her head" movement, circular, very emotional fear of falling. No visual pappas ges, mild headache. Fearful., sudden onset, increasing daily REVIEW OF SYSTEMS Review of Systems Constitutional: Negative for activity change, appetite change, chills, fever and unexpected weight change. HENT: Negative for congestion. Eyes: Negative for visual disturbance. Respiratory: Negative for cough. Genitourinary: Negative for menstrual problem. Musculoskeletal: Negative for back pain. Neurological: Positive for dizziness, light-headedness and headaches. Negative f or weakness. Psychiatric/Behavioral: The patient is nervous/anxious. Past Medical History: Diagnosis Date Chronic ischemic heart disease, unspecified GERD (gastroesophageal reflux disease) Gout HTN (hypertension) Status post colonoscopy with polypectomy 04/29/2009 Past Surgical History: Procedure Laterality Date [place] COLONOSCOPY FLX DX W/COLLJ SPEC WHEN PFRMD 04/29/2009 COLONOSCOPY performed by GAMAL ROSEN at [facility] OR [place] COLONOSCOPY FLX DX W/COLLJ SPEC WHEN PFRMD 04/18/2012 COLONOSCOPY performed by Gamal Rosen MD at [facility] [place] COLONOSCOPY FLX DX W/COLLJ SPEC WHEN PFRMD N/A 06/07/2017 COLONOSCOPY performed by Gamal Rosen MD at [facility] [place] ESOPHAGOGASTRODUODENOSCOPY TRANSORAL DIAGNOSTIC N/A 08/09/2017 ESOPHAGOGASTRODUODENOSCOPY performed by Gamal Rosen MD at [facility] [place] LIGATE FALLOPIAN TUBE Objective PHYSICAL EXAM BP 100/52 | Temp 99.5 F (37.5 C) | Ht 5' (1.524 m) | Wt 71.2 kg (157 lb) | BMI 30.66 kg/m Physical Exam Constitutional: She is oriented [...] and oriented to person, place, and time. She displays normal reflexes. No cranial nerve deficit or sensory deficit. Coordination norm al. No nystagmus, neg Romberg Skin: Skin is warm and dry. Psychiatric: Emotionally labile Nursing note and vitals reviewed. DEPRESSION SCREEN Positive: PHQ-2 score > 2 or PHQ-9 score > 9 Her depression screen was normal Procedures HGB 5.2 Assessment ASSESSMENT and PLAN: ICD-10-CM ICD-9-CM 1. Essential hypertension I10 401.9 CBC WITH DIFFERENTIAL COMPREHENSIVE METABOLIC PANEL 2. Dizzy spells R42 780.4 CT HEAD WO CONTRAST 3. Imbalance R26.[address] HEAD WO CONTRAST 4. Acute blood loss anemia D62 285.1 Current Outpatient Prescriptions: metoprolol tartrate (LOPRESSOR) 25 mg tablet, Take [...] daily OMEGA RED. , Disp: , Rfl: pantoprazole (PROTONIX) 40 mg Tablet, Delayed Release (E.C.), Take 1 Tablet (40 mg) by mouth daily before breakfast., Disp: 20 Tablet, Rfl: 1 See H and P documented in this encounter Plan of Treatment Not on filedocumented as of this encounter Results * COMPREHENSIVE METABOLIC PANEL (08/07/2017 11:56 AM CDT) [facility] SODIUM 142 136 - 145 mmol/L [facility] - [facility] INDU POTASSIUM 3.5 3.5 - 5.1 mmol/L [facility] - [place] CHLORIDE 104 98 - 107 mmol/L [facility] SERVICES - [facility] INDU CO2 20 (L) 22 - 29 mmol/L [facility] - [facility] INDU CALCIUM 8.4 (L) 8.8 - 10.2 mg/dL [facility] [place] BUN 18 8 - 23 mg/dL [facility] [place] CREATININE 1.75 (H) 0.51 - 0.95 mg/dL [facility] Comment: LABORATORY The GFR result is not SERVICES - [facility] clinically significant on [place] patients <18 or >70 years of age. GLUCOSE 107 (H) 70 - 100 mg/dL [facility] - [facility] INDU TOTAL PROTEIN 6.6 6.6 - 8.7 g/dL [facility] - [facility] INDU ALBUMIN 3.8 3.5 - 5.2 g/dL [facility] - [place] BILIRUBIN TOTAL 0.2 <=1.2 mg/dL [facility] - [facility] INDU ALKALINE 77 35 - 104 U/L [facility]OSPHATASE [facility] - [facility] INDU AST 23 <=33 U/L [facility] - [facility] INDU ALT 22 10 - 35 U/L [facility] - [facility] INDU GFR 28 mL/min/1.73 sq meter [facility] Comment: LABORATORY eGFR has not been validated SERVICES - [facility] for use in the elderly (> 70 [place] years of age), women, patients with serious [...] GFR result. GFR, 34 mL/min/1.[address] [facility] LABORATORY SERVICES - [place] ANION GAP 18 4 - 20 mmol/L [facility] LABORATORY [facility] [place] Specimen Blood Performing Organization Address City/State/Zipcode Ph one Number [facility] LABOR[facility]ORY [facility] CLIA# [id number] [place], [place] [address] - [place] [address] [facility] * CBC WITH DIFFERENTIAL (08/07/2017 11:56 AM CDT) [facility] WBC 6.8 3.6 - 11.1 K/uL [facility] LABORATORY [facility] [place] RBC 2.28 (L) 3.78 - 5.21 M/uL [facility] LABORATORY [facility] [place] HEMOGLOBIN 5.2 (LL) 11.1 - 15.5 g/dL [facility] Comment: LABORATORY Critical results called to SERVICES - [facility], location: Dr.Parris [place] by Chuck Lira on 08/07/2017 at 1:04 PM. Results read back. HEMATOCRIT 18.2 (L) 34.3 - 46.7 % [facility] LABORATORY [facility] [place] MCV 79.8 (L) 82.7 - 97.1 fL [facility] LABORATORY [facility] [place] MCH 22.8 (L) 27.1 - 32.3 pg [facility] LABORATORY [facility] [place] MCHC 28.6 (L) 31.3 - 34.9 g/dL [facility] LABORATORY [facility] [place] RDW 17.3 (H) 11.5 - 14.7 % [facility] LABORATORY [facility] INDU RDW-STDEV 50.9 (H) 37.2 - 47.6 fL [facility] LABORATORY [facility] [place] PLATELETS 303 136 - 352 K/uL [facility] LABORATORY [facility] [place] MPV 9.9 8.6 - 11.8 fL [facility] LABORATORY [facility] [place] NEUTROPHILS 69 44 - 74 % [facility] LABORATORY [facility] INDU LYMPHOCYTES 20 16 - 44 % [facility] - [place] MONOCYTES 10 4 - 11 % [facility] [place] EOSINOPHILS 1 0 - 6 % [facility] [place] BASOPHILS 0 0 - 1 % [facility] [place] IMMATURE 0 0 - 1 % [facility]ANUL[facility] - [place] NEUTROPHIL 4.66 1.54 - 7.18 K/uL [facility] - [place] LYMPHOCYTE 1.33 0.69 - 3.61 K/uL [facility] - [place] MONOCYTE 0.69 0.19 - 0.95 K/uL [facility] - [place] EOSINOPHIL 0.08 0.00 - 0.44 K/uL [facility] - [place] BASOPHILS 0.03 0.00 - 0.10 K/uL [facility] - [place] IMMATURE 0.02 0.00 - 0.09 K/uL [facility] GRANULOC[facility]TES [facility] ABSOLUTE SERVICES - [place] Specimen Blood Performing Organization Address City/State/Zipcode Ph one Number [facility]ORY SERVICES CLIA# [id number] [place] [address] - [place] [address] [facility] * CT HEAD WO CONTRAST (08/07/2017 11:54 AM CDT) Specimen Impressions Performed At IMPRESSION: INTERFACE SYSTEM No acute intracranial findings. Narrative Performed At CT HEAD WO CONTRAST INTERFACE SYSTEM History: 76 years Female with Dizzy spe lls, Imbalance Comparison: None. Technique: CT of the head without contr ast. FINDINGS: BRAIN PARENCHYMA AND CSF SPACES: Mild l eukoaraiosis and diffuse cortical atrophy. Mild atheromatous dis ease. No midline shift, mass effect or hemorrhage. The brain paren chyma and CSF spaces are otherwise normal. VISUALIZED PARANASAL SINUSES: Normal. MASTOIDS: Normal. BONES: Normal. SOFT TISSUES: Visualized nasopharynx is normal. Superficial soft tissues are normal. Procedure Note [facility], [facility] Incoming Radiology Results - 08/07/2017 12:[address] HEAD WO CONTRAST History: 76 years [...] is normal. Superficial soft tissues are normal. IMPRESSION: No acute intracranial findings. Performing Organization Address City/State/Zipcode one Number INTERFACE SYSTEM INTERFACE SYSTEM Refer to clinic/hospital department documented in this encounter Visit Diagnoses Diagnosis Essential hypertension Unspecified essential hypertension Dizzy spells Dizziness and giddiness Imbalance Abnormality of gait Acute blood loss anemia Acute posthemorrhagic anemia documented in this encounter
--- OUTSIDE RECORDS SUMMARY | 2019-08-19 16:01 | XMS REPORT | Encounter Summary ---
Author Author [facility] Organization [facility] Address Unknown Phone Unavailable Care Team Providers Care Valet Cashier Name Role Phone Carlotta Aguayo MD PCP Unavailable Reason for Visit * Reason Comments Medication Refill Encounter Details Care Team Description Date Type Department Carlotta Aguayo MD NO ADDRESS ON FILE 07/23/2017 Refill [facility] [address] [address] Social History Date Tobacco Use Types Packs/Day Years Used Never Smoker Smokeless Tobacco: Never Used Drinks/Week oz/Week Comments Alcohol Use No Sex Assigned at Date Recorded Not on file documented as of this encounter Plan of Treatment Not on filedocumented as of this encounter Visit Diagnoses Not on filedocumented in this encounter
--- OUTSIDE RECORDS SUMMARY | 2019-08-19 16:01 | XMS REPORT | Encounter Summary ---
Author Author [facility] Organization [facility] Address Unknown Phone Unavailable Care Team Providers Care Devulcanizer Tender Name Role Phone Carlotta Aguayo MD PCP Unavailable Reason for Visit * Auth/Cert Referred By Contact Referred To Contact Status Reason Specialty Diagnoses / Procedures [facility] Med Surg [address] [place] [address] Inpatient Diagnoses anemia Encounter Details Care Team Description Date Type Department Carlotta Aguayo MD NO ADDRESS ON FILE [facility] Outpt Lab 08/07/2017 [facility] Outpatient Encounter Laboratory [address] [address] Social History Date Tobacco Use [...] by Release (E.C.) mouth daily before breakfast. 08/07/2017 08/08/2017 meclizine (ANTIVERT) 25 Take 1 Tablet 21 Tablet 1 mg tablet (25 mg) by mouth 3 times daily as needed for Dizziness. 08/05/2017 02/03/2018 metoprolol tartrate Take 1 Tab by 60 Tablet 5 (LOPRESSOR) 25 mg tablet mouth 2 times daily. 08/05/2017 02/03/2018 NIFEdipine (PROCARDIA XL) Take 1 Tab by 60 Tablet 5 30 mg Extended Release 24 mouth 2 times hour tablet daily. 07/24/2017 08/08/2017 probenecid-colchicine Take 1 Tab by 60 Tablet 3 (COLBENEMID) 0.5-500 mg mouth daily. Tablet 07/18/2017 10/16/2017 HYDROcodone-acetaminophen Take 1 Tablet 120 [...] day . documented as of this encounter Plan of Treatment Not on filedocumented as of this encounter Procedures Comments Procedure Name Priority Date/Time Associated Diag nosis CBC WITH DIFFERENTIAL Stat 08/07/2017 [facility] hypertension 11:56 AM CDT COMPREHENSIVE METABOLIC Stat 08/07/2017 [facility] ial hypertension PANEL 11:56 AM CDT documented in this encounter Results * COMPREHENSIVE METABOLIC PANEL (08/07/2017 11:56 AM CDT) SODIUM 142 136 - 145 mmol/L [facility] - [place] POTASSIUM 3.5 3.5 - 5.1 mmol/L [facility] SERVICES - [facility] INDU CHLORIDE 104 98 - 107 mmol/L [facility] SERVICES - [facility] NIDU CO2 20 (L) 22 - 29 mmol/L [facility] - [place] CALCIUM 8.4 (L) 8.8 - 10.2 mg/dL [facility] - [place] BUN 18 8 - 23 mg/dL [facility] - [place] CREATININE 1.75 (H) 0.51 - 0.95 mg/dL [facility] Comment: LABORATORY The GFR result is not SERVICES - [facility] clinically significant on [place] patients <18 or >70 years of age. GLUCOSE 107 (H) 70 - 100 mg/dL [facility] SERVICES - [facility] INDU TOTAL PROTEIN 6.6 6.6 - 8.7 g/dL [facility] - [place] ALBUMIN 3.8 3.5 - 5.2 g/dL [facility] SERVICES - [facility] INDU BILIRUBIN TOTAL 0.2 <=1.2 mg/dL [facility] LABORATORY SERVICES - [facility] INDU ALKALINE 77 35 - 104 U/L [facility] PHOSPHATASE LABORATORY SERVICES - [facility] INDU AST 23 <=33 U/L [facility] - [place] ALT 22 10 - 35 U/L [facility] - [place] GFR 28 mL/min/1.73 sq meter [facility] Comment: LABORATORY eGFR has not been validated SERVICES - [facility] for use in the elderly (> 70 [place] years of age), women, patients with serious [...] GFR result. GFR, 34 mL/min/1.73 sq meter [facility]ATORY SERVICES - [facility] INDU ANION GAP 18 4 - 20 mmol/L [facility] - [place] Specimen Blood Performing Organization Address City/State/Zipcode Ph one Number [facility] CLIA# [id number] [place] [address] - [place] [address] * CBC WITH DIFFERENTIAL (08/07/2017 11:56 AM CDT) [facility] Signature WBC 6.8 3.6 - 11.1 K/uL [facility] [place] RBC 2.28 (L) 3.78 - 5.21 M/uL [facility] - [place] HEMOGLOBIN 5.2 (LL) 11.1 - 15.5 g/dL [facility] Comment: LABORATORY Critical results called to SERVICES - [facility], location: Dr.Parris [place] by Chuck Lira on 08/07/2017 at 1:04 PM. Results read back. HEMATOCRIT 18.2 (L) 34.3 - 46.7 % [facility] - [place] MCV 79.8 (L) 82.7 - 97.1 fL [facility] - [place] MCH 22.8 (L) 27.1 - 32.3 pg [facility] - [place] MCHC 28.6 (L) 31.3 - 34.9 g/dL [facility] - [place] RDW 17.3 (H) 11.5 - 14.7 % [facility] - [place] RDW-STDEV 50.9 (H) 37.2 - 47.6 fL [facility] - [place] PLATELETS 303 136 - 352 K/uL [facility] - [place] MPV 9.9 8.6 - 11.8 fL [facility] - [place] NEUTROPHILS 69 44 - 74 % [facility] - [place] LYMPHOCYTES 20 16 - 44 % [facility] [...] [place] IMMATURE 0.02 0.00 - 0.09 K/uL [facility] ABSOLUTE SERVICES - [place] Specimen Blood Performing Organization Address City/State/Zipcode Ph one Number [facility] CLIA# [id number] [place] [address] - [place] [address] [place] [address] BLVD documented in this encounter Visit Diagnoses Diagnosis Essential hypertension Unspecified essential hypertension documented in this encounter
--- OUTSIDE RECORDS SUMMARY | 2019-08-19 16:01 | XMS REPORT | Encounter Summary ---
Author Author [facility] Organization [facility] Address Unknown Phone Unavailable Care Team Providers Care Envelope Stuffer Name Role Phone Carlotta Aguayo MD PCP Unavailable Reason for Visit * Reason Comments Medication Refill Encounter Details Care Team Description Date Type Department Carlotta Aguayo MD NO ADDRESS ON FILE 06/24/2017 Refill [facility] [address] [address] Social History Date Tobacco Use Types Packs/Day Years Used Never Smoker Smokeless Tobacco: Never Used Drinks/Week oz/Week Comments Alcohol Use No Sex Assigned at Date Recorded Not on file documented as of this encounter Plan of Treatment Not on filedocumented as of this encounter Visit Diagnoses Not on filedocumented in this encounter
--- OUTSIDE RECORDS SUMMARY | 2019-08-19 16:01 | XMS REPORT | Encounter Summary ---
Author Author [facility] Organization [facility] Address Unknown Phone Unavailable Care Team Providers Care Management Accountant Name Role Phone Carlotta Aguayo MD PCP Unavailable Reason for Visit * Reason Comments Medication Refill Encounter Details Care Team Description Date Type Department Carlotta Aguayo MD NO ADDRESS ON FILE Primary osteoarthritis involving multipl e joints 07/18/[address] [phone] Social History Date Tobacco Use Types Packs/Day Years Used Never Smoker Smokeless Tobacco: Never Used Drinks/Week oz/Week Comments Alcohol Use No Sex Assigned at Date Recorded Not on file documented as of this encounter Plan of Treatment Not on filedocumented as of this encounter Visit Diagnoses Diagnosis Primary osteoarthritis involving multip le joints documented in this encounter
--- OUTSIDE RECORDS SUMMARY | 2019-08-19 16:01 | XMS REPORT | Encounter Summary ---
Author Author [facility] Organization [facility] Address Unknown Phone Unavailable Care Team Providers Care Plunket Nurse Name Role Phone Carlotta Aguayo MD PCP Unavailable Reason for Referral * Outpatient Services (Urgent) Referred By Contact Referred To Contact Status Reason Specialty Diagnoses / Procedures Carlotta Aguayo MD NO ADDRESS ON FILE Closed Diagnoses Dizzy spells Imbalance P rocedures CT HEAD WO CONTRAST Reason for Visit * Auth/Cert Referred By Contact Referred To Contact Status Reason Specialty Diagnoses / Procedures [facility] Med Surg [address] [place] [address] Inpatient Diagnoses anemia Encounter Details Care Team Description Date Type Department Carlotta Aguayo MD NO ADDRESS ON FILE 08/07/2017 [facility] F ort Encounter Lenny CT Scan [address] [place] [address] Social History Date Tobacco Use [...] Procedure Name Priority Date/Time Associated Diag nosis CT HEAD WO CONTRAST Stat 08/07/2017 Dizzy spel ls 11:54 AM CDT Imbalance documented in this encounter Results * CT HEAD WO CONTRAST (08/07/2017 11:54 [...] Superficial soft tissues are normal. Procedure Note Interface, [facility] Incoming Radiology Results - 08/07/2017 12:01 [...] acute intracranial findings. Performing Organization Address City/State/Zipcode Ph one Number INTERFACE SYSTEM INTERFACE SYSTEM Refer to clinic/hospital department documented in this encounter Visit Diagnoses Diagnosis Dizzy spells Dizziness and giddiness Imbalance Abnormality of gait documented in this encounter
--- OUTSIDE RECORDS SUMMARY | 2019-08-19 16:01 | XMS REPORT | Encounter Summary ---
Author Author [facility] Organization [facility] Address Unknown Phone Unavailable Care Team Providers Care Container Coordinator Name Role Phone Carlotta Aguayo MD PCP Unavailable Reason for Visit * Reason Comments Medication Refill Encounter Details Care Team Description Date Type Department Carlotta Aguayo MD NO ADDRESS ON FILE 06/03/2017 Refill [facility] [address] [address] Social History Date Tobacco Use Types Packs/Day Years Used Never Smoker Smokeless Tobacco: Never Used Drinks/Week oz/Week Comments Alcohol Use No Sex Assigned at Date Recorded Not on file documented as of this encounter Plan of Treatment Not on filedocumented as of this encounter Visit Diagnoses Not on filedocumented in this encounter
--- OUTSIDE RECORDS SUMMARY | 2019-08-19 16:01 | XMS REPORT | Encounter Summary ---
Author Author [facility] Organization [facility] Address Unknown Phone Unavailable Care Team Providers Care Medication Reconciliation Technician Name Role Phone Carlotta Aguayo MD PCP Unavailable Reason for Visit * Reason Comments Follow Up fu colonoscopy Encounter Details Care Team Description Date Type Department Vandana Rosen MD NO ADDRESS ON FILE Status post colonoscopy with polypectomy (Primary Dx); Tubular adenoma of colon 06/13/2017 Office Visit [address] [id number] Social History Date Tobacco Use Types Packs/Day Years Used Never Smoker Smokeless Tobacco: Never Used Drinks/Week oz/Week Comments Alcohol Use No Sex Assigned at Date Recorded Not on file documented as of this encounter Last Filed Vital Signs Reading Time Taken Comments Vital Sign 124/70 06/13/2017 2:37 PM CDT Blood Pressure - - Pulse - - Temperature - - Respiratory Rate - - Oxygen Saturation - - Inhaled Oxygen Concentration 73 kg (161 lb) 06/13/2017 2:37 PM CDT Weight 152.4 cm (5') 06/13/2017 2:37 PM CDT Height 31.44 06/13/2017 2:37 PM CDT Body Mass Index documented in this encounter Progress Notes * Vandana Rosen MD - 06/14/2017 2:14 PM CDT Subjective: Patient no new complaints. Current Outpatient Prescriptions Medication Sig Dispense Refill furosemide (LASIX) 20 mg tablet Take 1 Tab by mouth daily. 30 Tablet 5 metoprolol tartrate (LOPRESSOR) 25 mg tablet Take 1 Tab by mouth [address] 60 Tablet 1 NIFEdipine (PROCARDIA XL) 30 mg Extended Release 24 hour tablet Take 1 Tab b y mouth 2 times daily. 60 Tablet 1 raloxifene (EVISTA) 60 mg tablet Take 1 Tab by mouth daily. 30 Tablet 5 gabapentin (NEURONTIN) 300 mg capsule Take 1 Capsule (300 mg) by mouth daily at bedtime. 90 Capsule 3 probenecid-colchicine (COLBENEMID) 0.5-500 mg Tablet Take 1 Tab by mouth amirah ly. 60 Tablet 0 HYDROcodone-acetaminophen (NORCO) 5-325 mg tablet Take 1 Tablet by mouth inés ry 4 hours as needed for Pain, Moderate. 120 Tablet 0 dicyclomine (BENTYL) 20 mg tablet Take 1 Tab by mouth 4 times daily before m eals and at bedtime. 120 Tablet 5 ALPRAZolam (XANAX) 0.25 mg tablet Take 1 Tablet (0.25 mg) by mouth 3 times d aily as needed for Anxiety. 90 Tablet 3 ferrous sulfate (FEOSOL) 325 mg (65 mg iron) tablet Take 1 Tablet (325 mg) b y mouth 2 times daily. (Patient taking differently: Take 325 mg by mouth daily . ) 60 Tablet 3 albuterol HFA 90 mcg inhaler Take 2 Puffs by inhalation every 6 hours as nee ded for Shortness of Breath. 8.5 Gram 0 0mega-3 fatty acids-vitamin E (FISH OIL) 1,000 mg Capsule Take 3 Capsule by mouth 2 times daily OMEGA RED. lansoprazole (PREVACID) 15 mg Oral CpDR Take 15 mg by mouth 1 time daily as needed . aspirin (BABY ASPIRIN) 81 mg Oral Chew Take 81 mg by mouth every other day . No current facility-administered medications for this visit. Objective: BP 124/70 | Ht 5' (1.524 m) | Wt 73 kg (161 lb) | BMI 31.44 kg/m General appearance: alert, in no distress Abdomen: Soft, non-tender. Bowel sounds normal. No masses, no organomegaly. Hospital Encounter on 06/07/17 (from the past 336 hour(s)) PATHOLOGY Collection Time: 06/07/17 8:25 AM Result Value Ref Range CASE REPORT Surgical Pathology Report Case: [id number] Authorizing Provider: Vandana Rosen MD Collected: 8 08:25 AM Ordering Location: [facility] Received: 8 09:43 AM Operating Room Pathologist: Ciaran Merino MD Specimens: A) - Biopsy of colon polyp at 70 cm. B) - Biopsy of colon polyp at 50 cm. FINAL DIAGNOSIS A) Biopsy, colon polyp at 70 cm: Tubular adenoma. B) Biopsy, colon polyp at 50 cm: Tubular adenoma. CPT Code: 34554r8 ICD10 Code: D12.4 and D12.5 OPERATIVE PROCEDURE Colonoscopy. GROSS DESCRIPTION The specimen is received in two parts. A) Part A is labeled biopsy of polyp at 70 cm. Received in formalin are five pie sandro of phillips tissue ranging from 0.2x0.1x0.1 cm up to 0.4x0.2x0.2 cm. Submitted in toto in one cassette. B) Part B is labeled colon biopsy of polyp at 60 cm. Received in formalin are tw o pieces of phillips tissue measuring 0.3x0.2x0.2 cm and 0.4x0.2x0.2 cm. Submitted in toto in one cassette. MICROSCOPIC DESCRIPTION A) Sections reveal adenomatous changes in the mucosa. Altered crypts are seen, lined by columnar cells with enlarged, hyperchromatic nuclei. Invasive neoplasm is not identified. B) Sections reveal adenomatous changes. Altered crypts are seen, lined by column ar cells with enlarged, hyperchromatic nuclei. Invasive neoplasm is not identifi ed. Assessment: Encounter Diagnoses Name Primary? Status post colonoscopy with polypectomy Yes Tubular adenoma of colon No complication. Plan: No orders of the defined types were placed in this encounter. Repeat colonoscopy in 3 years if no symptoms. documented in this encounter Plan of Treatment Not on filedocumented as of this encounter Visit Diagnoses Diagnosis Status post colonoscopy with polypectom y Other postprocedural status Tubular adenoma of colon Benign neoplasm of colon documented in this encounter"
--- OUTSIDE RECORDS SUMMARY | 2019-08-19 16:01 | XMS REPORT | Encounter Summary ---
Author Author [facility] Organization [facility] Address Unknown Phone Unavailable Care Team Providers Care Yarn Cleaner Name Role Phone Carlotta Aguayo MD PCP Unavailable Reason for Visit * Auth/Cert Referred By Contact Referred To Contact Status Reason Specialty Diagnoses / Procedures [facility] Med Surg [address] [place] [address] Inpatient Diagnoses anemia Encounter Details Care Team Description Date Type Department Carlotta Aguayo MD NO ADDRESS ON FILE Acute blood loss anemia 08/07/2017 Hospital [facility] F ort - Encounter [facility] Surgi [facility] 08/08/2017 [address] [place] [address] Social History Date Tobacco Use Types Packs/Day Years Used Never Smoker Smokeless Tobacco: Never Used Drinks/Week oz/Week Comments Alcohol Use No Sex Assigned at Date Recorded Not on file documented as of this encounter Last Filed Vital Signs Reading Time Taken Comments Vital Sign 130/65 08/08/2017 7:37 AM CDT Blood Pressure 89 08/07/2017 7:38 PM CDT Pulse 36.3 C (97.4 F) 08/08/2017 7:37 AM CDT Temperature 20 08/08/2017 7:37 AM CDT Respiratory Rate 97% 08/08/2017 7:37 AM CDT Oxygen Saturation - - Inhaled Oxygen Concentration 71.8 kg (158 lb 3 oz) 08/07/2017 4:21 PM CDT Weight 157.5 cm (5' 2") 08/07/2017 4:21 PM CDT Height 28.93 08/07/2017 4:21 PM CDT Body Mass Index documented in this encounter Discharge Summaries * Carlotta Aguayo MD - 08/08/2017 2:10 PM CDT Physician Discharge Summary Patient: Era Viveros / 76 y.o. / female : 1940 Admit date: 08/07/2017 Indication for Admission: anemia. Admitting Diagnoses: anemia Attending Physician: Carlotta Aguayo MD Consults: general surgery. Emergency Department Diagnoses: ICD-10-CM ICD-9-CM 1. Acute blood loss anemia D62 285.1 Treatments: blood transfusion. Significant Diagnostic Studies: labs: cbc, cmp, ua. Hospital Course: admitted with dizzy and faint, found to have Hgb of 5.2, no abd ominal pain or nausea but dark stools. Transfused 2 u pRBC with Hgb up to 8.2 an d no further dizziness. Seen by general surgeon Dr Mcknight and felt she could be d ismissed with outpatient EGD in am. Incidental pyuria, cultured and placed on Ci pro po. Protonix given and will follow up as stated. Admission Condition: significantly deteriorating. Discharge date: 08/08/2017 Discharging Physician: Carlotta Aguayo MD Discharge Exam: General appearance: alert, moderate distress Lungs: clear to auscultation bilaterally, normal respiratory effort Heart: normal rate, regular rhythm, normal S1, S2, no murmurs, rubs, clicks or g allops Abdomen: Soft, non-tender. Bowel sounds normal. No masses, no organomegaly. Pulses: 2+ and symmetric Skin: Skin color, texture, turgor normal. No rashes or lesions Neurologic: Grossly normal. Discharge Condition: improving. Discharge Diagnoses: Active Problems: Acute blood loss anemia Disposition: home. MEDICATIONS Prior to admission: Prescriptions Prior to Admission Medication Sig Dispense Refill Last Dose metoprolol tartrate (LOPRESSOR) 25 mg tablet Take 1 Tab by mouth 2 times amirah ly. 60 Tablet 5 08/07/2017 at am NIFEdipine (PROCARDIA XL) 30 mg Extended Release 24 hour tablet Take 1 Tab b y mouth 2 times daily. 60 Tablet 5 08/07/2017 at am HYDROcodone-acetaminophen (NORCO) 5-325 mg tablet Take 1 Tablet by mouth inés ry 4 hours as needed for Pain, Moderate. 120 Tablet 0 08/06/2017 at Unknown time dicyclomine (BENTYL) 20 mg tablet Take 1 Tab by mouth 4 times daily before m eals and at bedtime. 120 Tablet 5 08/07/2017 at am furosemide (LASIX) 20 mg tablet Take 1 Tab by mouth daily. 30 Tablet 5 018 at am raloxifene (EVISTA) 60 mg tablet Take 1 Tab by mouth daily. 30 Tablet 5 2017 at am gabapentin (NEURONTIN) 300 mg capsule Take 1 Capsule (300 mg) by mouth daily at bedtime. 90 Capsule 3 08/06/2017 at hs ALPRAZolam (XANAX) 0.25 mg tablet Take 1 Tablet (0.25 mg) by mouth 3 times d aily as needed for Anxiety. 90 Tablet 3 Past Week at Unknown time 0mega-3 fatty acids-vitamin E (FISH OIL) 1,000 mg Capsule Take 3 Capsule by mouth 2 times daily OMEGA RED. 08/06/2017 at hs [DISCONTINUED] meclizine (ANTIVERT) 25 mg tablet Take 1 Tablet (25 mg) by mo uth 3 times daily as needed for Dizziness. 21 Tablet 1 08/07/2017 at am [DISCONTINUED] probenecid-colchicine (COLBENEMID) 0.5-500 mg Tablet Take 1 T ab by mouth daily. 60 Tablet 3 08/07/2017 at am ferrous sulfate (FEOSOL) 325 mg (65 mg iron) tablet Take 1 Tablet (325 mg) b y mouth 2 times daily. (Patient taking differently: Take 325 mg by mouth daily . ) 60 Tablet 3 > Month at Unknown time [DISCONTINUED] lansoprazole (PREVACID) 15 mg Oral CpDR Take 15 mg by mouth 1 time daily as needed . Unknown at Unknown time [DISCONTINUED] aspirin (BABY ASPIRIN) 81 mg Oral Chew Take 81 mg by mouth ev tejas other day . 08/06/2017 at am Discharge medications and new prescriptions: Medication List START taking these medications ciprofloxacin HCl 250 mg tablet Commonly known as: CIPRO Take 1 Tablet (250 mg) by mouth every 12 hours. Signed by: Carlotta Aguayo MD Quantity: 14 Tablet Refills: 0 pantoprazole 40 mg Tablet, Delayed Release (E.C.) Commonly known as: PROTONIX Take 1 Tablet (40 mg) by mouth daily before breakfast. Start taking on: 08/09/2017 Signed by: Carlotta Aguayo MD Quantity: 20 Tablet Refills: 1 CHANGE how you take these medications ferrous sulfate 325 mg (65 mg iron) tablet What changed: when to take this Take 1 Tablet (325 mg) by mouth 2 times daily. Signed by: Carlotta Aguayo MD Quantity: 60 Tablet Refills: 3 CONTINUE taking these medications ALPRAZolam 0.25 mg tablet Commonly known as: XANAX Take 1 Tablet (0.25 mg) by mouth 3 times daily as needed for Anxiety. Signed by: Carlotta Aguayo MD Quantity: 90 Tablet Refills: 3 dicyclomine 20 mg tablet Commonly known as: BENTYL Take 1 Tab by mouth 4 times daily before meals and at bedtime. Signed by: Carlotta Aguayo MD Quantity: 120 Tablet Refills: 5 FISH OIL 1,000 mg Capsule Take 3 Capsule by mouth 2 times daily OMEGA RED. Refills: 0 Generic drumega-3 fatty acids-vitamin E furosemide 20 mg tablet Commonly known as: LASIX Take 1 Tab by mouth daily. Signed by: Carlotta Aguayo MD Quantity: 30 Tablet Refills: 5 gabapentin 300 mg capsule Commonly known as: NEURONTIN Take 1 Capsule (300 mg) by mouth daily at bedtime. Signed by: Carlotta Augayo MD Quantity: 90 Capsule Refills: 3 HYDROcodone-acetaminophen 5-325 mg tablet Commonly known as: NORCO Take 1 Tablet by mouth every 4 hours as needed for Pain, Moderate. Signed by: Carlotta Aguayo MD Quantity: 120 Tablet Refills: 0 metoprolol tartrate 25 mg tablet Commonly known as: LOPRESSOR Take 1 Tab by mouth 2 times daily. Signed by: Carlotta Aguayo MD Quantity: 60 Tablet Refills: 5 NIFEdipine 30 mg Extended Release 24 hour tablet Commonly known as: PROCARDIA XL Take 1 Tab by mouth 2 times daily. Signed by: Carlotta Aguayo MD Quantity: 60 Tablet Refills: 5 raloxifene 60 mg tablet Commonly known as: EVISTA Take 1 Tab by mouth daily. Signed by: Carlotta Aguayo MD Quantity: 30 Tablet Refills: 5 STOP taking these medications BABY ASPIRIN 81 mg Tablet, Chewable Generic drug: aspirin meclizine 25 mg tablet Commonly known as: ANTIVERT PREVACID 15 mg Capsule, Delayed Release(E.C.) Generic drug: lansoprazole probenecid-colchicine 0.5-500 mg Tablet Commonly known as: COLBENEMID Where to Get Your Medications These medications were sent to [facility] Jeremie Griggs [address] [place] [address] , [facility] [address] Hours: Saturday-Saturday: 8:30 a.m. - 6:30 p.m., Saturday: 8:30 a.m. - 12:30 p.m. ciprofloxacin HCl 250 mg tablet pantoprazole 40 mg Tablet, Delayed Release (E.C.) Patient instructions: Activity: activity as tolerated. Diet: Regular Diet. Wound Care: None needed. Follow-up with Carlotta Aguayo MD in 1 day(s). Signed: Carlotta Aguayo MD 08/08/2017, 2:10 PM documented in this encounter Discharge Instructions * Instructions* Marissa Chaparro, RN - 08/08/2017 DISCHARGE DESTINATION: Home FOLLOW-UP Follow up with Dr. Aguayo in one week on August 13 at 9:20 am. Labs ar e to be done this day. Tomorrow: Have CBC drawn with IV start before EGD on Saturday morning, August 09. PRESCRIPTIONS: Prescriptions given? Yes and Faxed SIGNS AND SYMPTOMS TO REPORT Contact your health care provider if you experience any of the following symptom s: increased dizziness or lightheadedness. ACTIVITY Your activity level is: increase activity as tolerated and no smoking. If you smoke you are advised to quit. Ask your health care provider for advice if you need assistance to stop smoking. Avoid second-hand smoke exposure and do not le t people smoke in your home. DIET Your diet is: regular and as tolerated WOUND CARE For your wound/incision: None needed MEDICATIONS Reminders: Please discard any old medication lists and update records with all of your medi cation(s) to your providers and retail pharmacies. Please become familiar with the use and dose of your prescription and over-the-c ounter medications, including those taken only as needed. Please bring a current medication list and/or your medications to your medical a ppointments. Carry your allergy and medication information with you at all times in the event of emergency situations ................................................................................ ...................................................... *THANK YOU FOR CHOOSING [facility] Our goal is to provide you with the highest level of care and service. Your fe edback about the positive experience and opportunities for us to better serve u is important to us. Patients will be randomly selected for either a phone or e-mail survey. * Phone surveys will be conducted by a non-[employer] employed attendant to patients of [facility] inpatient unit, surgery, emergency department, home health or convenient care. * E-mail surveys will be delivered to [facility] patients and outpatients. .Did you know you don't have to call your doctor's office to ask a question, get your test results, or request an appointment or prescription renewal? You can do all of that and more, 22/10, with [facility]. Send a secure message, pay a bill, check your health records - it's all there on your laptop, tablet, or phone, an ywhere you have Internet access. Learn more or sign up at [facility].[employer]. .. IMPORTANT EMERGENCY PHONE NUMBERS Poison Control [place] Crisis Hotline- Domestic Violence Suicide Prevention Lifeline Opioid Addiction Hotline For Disposal of Medications: Drop box at [facility] * Attachments The following attachments cannot be sent through Care Everywhere.* Blood Transfusions: General Info (Polish) * Anemia: Iron Deficiency (Polish) * Iron-Rich Diet (Polish) * ciprofloxacin (oral) (Polish) * pantoprazole (Polish) documented in this encounter Medications at Time [...] for Anxiety. documented as of this encounter Progress Notes * Enoch Cardenas, PHARMACIST - 08/08/2017 7:47 AM CDT Reduce Cipro to 250mg PO BID due to CrCl 25 ml/min. Per renal dose adjustment / Dr Aguayo / Enoch Cardenas, PHARMACIST documented in this encounter H&P Notes * Carlotta Aguayo MD - 08/07/2017 4:00 PM CDT HISTORY OF PRESENT ILLNESS Era Viveros is a 76 y.o. female admitted with anemia, lightheaded on 018 Subjective HPI admitted with marked anemia and symptoms of dizzy and light headed, fear of falling, emotional lability. Dark stools but taking Feosol. Colonoscopy in past 6 months neg. No abdominal pain or nausea. REVIEW OF SYSTEMS Review of Systems Constitutional: Negative for activity change, appetite change, chills, fever and unexpected weight change. HENT: Negative for congestion. Eyes: Negative for visual disturbance. Respiratory: Negative for cough. Genitourinary: Negative for menstrual problem. Musculoskeletal: Negative for back pain. Neurological: Positive for dizziness and light-headedness. Negative for weakness and headaches. Psychiatric/Behavioral: The patient is nervous/anxious. HISTORY REVIEW I have reviewed and updated all historical information, Active Problems: Acute blood loss anemia , Past Medical History: Diagnosis Date Chronic ischemic heart disease, unspecified GERD (gastroesophageal reflux disease) Gout Status post colonoscopy with polypectomy 04/29/2009 , Past Surgical History: Procedure Laterality Date [place] COLONOSCOPY FLX DX W/COLLJ SPEC WHEN PFRMD 04/29/2009 COLONOSCOPY performed by VANDANA MCKNIGHT at [facility] OR [place] COLONOSCOPY FLX DX W/COLLJ SPEC WHEN PFRMD 04/18/2012 COLONOSCOPY [place] [facility] [place]ON[place] FLX DX W/COLLJ SPEC WHEN PFRMD N/A 06/07/2017 COLONOSCOPY performed [place] Vandana Mcknight [place] [facility] [place] LIGATE FALLOPIAN TUBE , Allergies Allergen Reactions Allopurinol Rash Indomethacin Renal Dysfunctions Other Drug [Unclassified Drug] Other (See Comments) Horse serum , Prescriptions Prior to Admission Medication Sig Dispense Refill Last Dose meclizine (ANTIVERT) 25 mg tablet Take 1 Tablet (25 mg) by mouth 3 times amirah ly as needed for Dizziness. 21 Tablet 1 metoprolol tartrate (LOPRESSOR) 25 mg tablet Take 1 Tab by mouth 2 times amirah ly. 60 Tablet 5 NIFEdipine (PROCARDIA XL) 30 mg Extended Release 24 hour tablet Take 1 Tab b y mouth 2 times daily. 60 Tablet 5 probenecid-colchicine (COLBENEMID) 0.5-500 mg Tablet Take 1 Tab by mouth amirah ly. 60 Tablet 3 HYDROcodone-acetaminophen (NORCO) 5-325 mg tablet [...] Tab by mouth daily. 30 Tablet 5 2017 at Unknown time gabapentin (NEURONTIN) 300 mg capsule Take 1 Capsule (300 mg) by mouth daily at bedtime. 90 Capsule 3 06/06/2017 at Unknown time ALPRAZolam (XANAX) 0.25 mg tablet Take 1 Tablet (0.25 mg) by mouth 3 times d aily as needed for Anxiety. 90 Tablet 3 Past Week at Unknown time ferrous sulfate (FEOSOL) 325 mg (65 mg iron) tablet Take 1 Tablet (325 mg) b y mouth 2 times daily. (Patient taking differently: Take 325 mg by mouth daily . ) 60 Tablet 3 06/06/2017 at Unknown time albuterol HFA 90 mcg inhaler Take 2 Puffs by inhalation every 6 hours as nee ded for Shortness of Breath. 8.5 Gram 0 Unknown at Unknown time 0mega-3 fatty acids-vitamin E (FISH OIL) 1,000 mg Capsule Take 3 Capsule by mouth 2 times daily OMEGA RED. 06/06/2017 at Unknown time lansoprazole (PREVACID) 15 mg Oral CpDR Take 15 mg by mouth 1 time daily as needed . 06/06/2017 at Unknown time aspirin (BABY ASPIRIN) 81 mg Oral Chew Take 81 mg by mouth every other day . Past Week at Unknown time Objective PHYSICAL EXAM Last Vitals: ? No Physical Exam Constitutional: She is oriented to [...] and dry. Nursing note and vitals reviewed. DIAGNOSTICS I have reviewed all of the patient's diagnostics., CBC: Lab Results Component Value Date/Time WBC 6.8 08/07/2017 11:56 AM RBC 2.28 (L) 08/07/2017 11:56 AM HGB 5.2 (LL) 08/07/2017 11:56 AM HCT 18.2 (L) 08/07/2017 11:56 AM PLT 303 08/07/2017 11:56 AM , BMP: Lab Results Component Value Date/Time GLUCOSE 107 (H) 08/07/2017 11:56 AM NA 142 08/07/2017 11:56 AM K 3.5 08/07/2017 11:56 AM CL 104 08/07/2017 11:56 AM CO2 20 (L) 08/07/2017 11:56 AM BUN 18 08/07/2017 11:56 AM CREAT 1.75 (H) 08/07/2017 11:56 AM CA 8.4 (L) 08/07/2017 11:56 AM Assessment ASSESSMENT/PLAN: Active Problems: Acute blood loss anemia Plan, consult surgeon Dr Mcknight, type and cross 2 units pRBC and give documented in this encounter Procedure Notes * Ciaran Merino MD - 08/08/2017 9:02 AM CDT Associated Order(s): EKG 12-LEAD [address] [place] [address] Patient Name: ERA VIVEROS CSN: [id number] : 1940 Provider: Ciaran De Leon M.D. Admitted: 08/07/2017 ELECTROCARDIOGRAM DATE OF SERVICE: 08/07/2017 08/07/2017 at 1701. The rhythm is regular, sinus in origin with a rate of 86 beats per minute. R wave transition occurs early across the chest. Slight ST segment depression is seen in lateral chest leads. No old tracings are available for com parison. DIAGNOSIS: 1) Sinus rhythm, rate 86 beats per minute. 2) Counterclockwi se rotation of horizontal electrical axis. 3) Mild nonspecific ST segment depres prerna. Dictated by: Ciaran De Leon M.D./MEDQ D: [id number] V: [id number] cc: Goyo Aguayo M.D. documented in this encounter Consult Notes * Vandana Mcknight MD - 08/08/2017 7:57 AM CDT Associated Order(s): IP CONSULT TO GENERAL SURGERY Subjective: Era Viveros is an 76 y.o. female who presents for evaluation of dizziness a nd weakness. Since last week, patient felt dizzy and weak. She was on iron re placement and when she found her stool very black, she stopped taking iron and n oticed that her stool is still dark. Denies abdominal pain or rectal bleeding. Last colonoscopy was in May, rare diverticula found. Patient denies ever hav ing a EGD. PCP found patient to have hemoglobin of less than 6; therefore, has been admitted for transfusion and surgical consultation. Past Medical History: Diagnosis Date Chronic ischemic heart disease, unspecified GERD (gastroesophageal reflux disease) Gout Status post colonoscopy with polypectomy 04/29/2009 Past Surgical History: Procedure Laterality Date [place] COLONOSCOPY FLX DX W/COLLJ SPEC WHEN PFRMD 04/29/2009 COLONOSCOPY performed by VANDANA MCKNIGHT at [facility] OR [place] COLONOSCOPY FLX DX W/COLLJ SPEC WHEN PFRMD 04/18/2012 COLONOSCOPY [place] [facility] [place] COLONOSCOPY FLX DX W/COLLJ SPEC WHEN PFRMD N/A 06/07/2017 COLONOSCOPY performed [place] Vandana Mcknight [place] [facility] [place] LIGATE FALLOPIAN TUBE Family History Problem Relation [...] 0.1 mg IV See Admin Notes Carlotta Lu MD sodium chloride 0.9% infusion IV Continuous Carlotta Aguayo MD 75 mL/hr a t 08/08/17 0015 acetaminophen (TYLENOL) tablet 650 mg [...] Ht 5' 2" (1.575 m) | Wt 71. 8 kg (158 lb 3 oz) | SpO2 [...] normal, atraumatic, no cyanosis or edema, normal stren gth, normal tone Neurologic: negative Psychiatric: non focal Hospital Encounter on 08/07/17 (from the past 336 hour(s)) VERIFICATION BLOOD GROUP Collection Time: 08/07/17 11:56 AM Result Value Ref Range ABO GROUP A RH (D) TYPE Positive PREPARE RED BLOOD CELLS Collection Time: 08/07/17 3:53 PM Result Value Ref Range COMPONENT TYPE D0583J76 COMPONENT IDENTIFICATION [id number] UNIT ABO A UNIT RH POS COMPONENT STATUS Issued COMPONENT EXPIRATION DATE/TIME 539710004154 COMPONENT CODING SYSTEM 6200 PREPARE RED BLOOD CELLS Collection Time: 08/07/17 3:53 PM Result Value Ref Range COMPONENT TYPE H6622E55 COMPONENT IDENTIFICATION [id number] UNIT ABO A UNIT RH POS COMPONENT STATUS Transfused COMPONENT EXPIRATION DATE/TIME [id number] COMPONENT CODING SYSTEM 6200 TYPE AND SCREEN [...] medications. The patient understands the risks, any a nd all questions were answered to the patient's satisfaction. 2. EGD with biopsies tomorrow, 08/09/2017. 3. If patient is discharged today, will arrange procedure as outpatient. documented in this encounter Miscellaneous Notes * Care Plan - Sarah Urban RN - 08/08/2017 1:37 PM CDT Problem: Discharge Planning Goal: Identify discharge needs upon admission and through discharge Outcome: Progressing Discharge Planning Meeting Notes Patient Name: Era Viveros Admit Date: 08/07/2017 Possible DC Date: 08/09/2017 Prior Services: None Agency used: None Discharge Location: Home with support of family. Discharge Needs Ongoing Services: The patient lives with her . While hospitalized, she i s receiving blood transfusions, close monitoring of her Hgb levels, and IV fluid s to treat anemia. New Services Needed: No new service needs identified at this time. Pain Management: The patient's pain is managed by her primary care physician Therapy Needs: No order for physical therapy Services received from: Karmen Those in attendance: "Sarah Urban RN", "Alie SANABRIA" ,"ARIC Thakur", "Georgia Ruby, RN, Nursing Cash Grain Farmer * Care Plan - Guadalupe Davila RN - 08/08/2017 6:04 AM CDT Patient rested well throughout the night. 2units blood administered without s/sx of adverse reaction. Labs pending. Call light within reach, will continue to monitor. documented in this encounter Plan of Treatment Not on filedocumented as of this encounter Procedures Comments Procedure Name Priority Date/Time Associated Diag nosis TELEMETRY REPORT 08/09/2017 11:19 AM CDT EKG 12-LEAD Routine 08/09/2017 11:13 AM CDT CBC WITH DIFFERENTIAL Timed 08/08/2017 Study 1:25 PM CDT OCCULT BLOOD GUAIAC Routine 08/08/2017 DIAGNOSTIC 10:37 AM CDT CBC WITH DIFFERENTIAL Routine 08/08/2017 5:40 AM CDT TRANSFUSE PACKED RED Routine 08/08/2017 BLOOD CELLS 12:25 AM CDT TRANSFUSE PACKED RED Routine 08/07/2017 BLOOD CELLS 9:06 PM CDT URINALYSIS W/REFLEX Routine 08/07/2017 MICROSCOPIC 8:51 PM CDT URINE CULTURE Stat 08/07/2017 8:51 PM CDT TYPE AND SCREEN Routine 08/07/2017 4:10 PM CDT PREPARE RED BLOOD CELLS Routine 08/07/2017 3:53 PM CDT PREPARE RED BLOOD CELLS Routine 08/07/2017 3:53 PM CDT VERIFICATION BLOOD GROUP Stat 08/07/2017 Acute blood loss anemia 11:56 AM CDT FERRITIN Routine 08/07/2017 11:56 AM CDT documented in this encounter Results * CBC WITHOUT DIFFERENTIAL (08/13/2017 7:35 AM CDT) WBC 5.1 3.6 - 11.1 K/uL [facility] RBC 3.64 (L) 3.78 - 5.21 M/uL [facility] HEMOGLOBIN 8.5 (L) 11.1 - 15.5 g/dL [facility] HEMATOCRIT 29.4 (L) 34.3 - 46.7 % [facility] MCV 80.8 (L) 82.7 - 97.1 fL [facility] MCH 23.4 (L) 27.1 - 32.3 pg [facility] MCHC 28.9 (L) 31.3 - 34.9 g/dL [facility] PLATELETS 265 136 - 352 K/uL [facility] MPV 10.0 8.6 - 11.8 fL [facility] RDW 17.2 (H) 11.5 - 14.7 % [facility] RDW-STDEV 50.4 (H) 37.2 - 47.6 fL [facility] Specimen Blood Performing Organization Address City/State/Zipcode Ph one Number [facility] CLIA# [id number] [place], [place] [address] - [address] * TELEMETRY REPORT (08/09/2017 11:19 AM CDT) Narrative Performed At This result has an attachment that is n ot available. * EKG 12-LEAD (08/09/2017 11:13 AM CDT) Narrative Performed At This result has an attachment that is n ot available. Procedure Note Ciaran De Leon MD - 08/08/2017 9:02 AM CDT [address] [place], [place] [address] Patient Name: ERA IVVEROS CSN: [id number] : 1940 Provider: Ciaran De Leon M.D. Admitted: 08/07/2017 ELECTROCARDIOGRAM DATE OF SERVICE: 08/07/2017 08/07/2017 at 1701. The rhythm is regular, sinus in origin with a rate of 86 beats per minute. R wave transition occurs early across the chest. Slight ST segment depression is seen in lateral chest leads. No old tracings are available for comparison. DIAGNOSIS: 1) Sinus rhythm, rate 86 beats per minute. 2) Counterclockwise rotation of horizontal electrical axis. 3) Mild nonspecific ST segment depression. Dictated by: Ciaran De Leon M.D./MEDRoger D: [id number] V: [id number] cc: Goyo Aguayo M.D. * CBC WITH DIFFERENTIAL (08/08/2017 1:25 PM CDT) [facility] WBC 5.8 3.6 - 11.1 K/uL [facility] - [facility] NRBCS 1 (H) 0 - 0 % [facility] - [facility] INDU RBC 3.72 (L) 3.78 - 5.21 M/uL [facility] - [facility] HEMOGLOBIN 8.9 (L) 11.1 - 15.5 g/dL [facility] - [facility] HEMATOCRIT 29.7 (L) 34.3 - 46.7 % [facility] - [facility] MCV 79.8 (L) 82.7 - 97.1 fL [facility] - [facility] MCH 23.9 (L) 27.1 - 32.3 pg [facility] - [facility] MCHC 30.0 (L) 31.3 - 34.9 g/dL [facility] RDW 16.4 (H) 11.5 - 14.7 % [facility] [facility] INDU RDW-STDEV 47.1 37.2 - 47.6 fL [facility] SERVICES - [facility] NIDU PLATELETS 273 136 - 352 K/uL [facility] SERVICES - [facility] INDU MPV 9.6 8.6 - 11.8 fL [facility] SERVICES - [place] NEUTROPHILS 63 44 - 74 % [facility] LYMPHOCYTES 22 16 - 44 % [facility] INDU MONOCYTES 12 (H) 4 - 11 % [facility] INDU EOSINOPHILS 3 0 - 6 % [facility] INDU BASOPHILS 1 0 - 1 % [facility] [place] IMMATURE 1 0 - 1 % [facility] - [place] NEUTROPHIL 3.63 1.54 - 7.18 K/uL [facility] - [place] LYMPHOCYTE 1.26 0.69 - 3.61 K/uL [facility] - [place] MONOCYTE 0.67 0.19 - 0.95 K/uL [facility] - [place] EOSINOPHIL 0.16 0.00 - 0.44 K/uL [facility] - [place] BASOPHILS 0.04 0.00 - 0.10 K/uL [facility] - [place] IMMATURE 0.04 0.00 - 0.09 K/uL [facility] ABSOLUTE SERVICES - [facility] INDU Specimen Blood Performing Organization Address [facility] one [facility] LABORATORY SERVICES CLIA# [id number] KRISTA LAUREN [address] [place] [address] [place] [address] * OCCULT BLOOD GUAIAC DIAGNOSTIC (08/08/2017 10:37 AM CDT) [facility] OCCULT BLOOD, Positive (A) Negative [facility] ST[facility]OL LABORATORY SERVICES - [place] Specimen Stool - Stool specimen (specimen) Performing Organization Address [facility] one [facility] LABORATORY [facility] CLIA# [id number] KRISTA LAUREN [address] * CBC WITH DIFFERENTIAL (08/08/2017 5:40 AM CDT) [facility] WBC 5.4 3.6 - 11.1 K/uL [facility] SERVICES [place] NRBCS 1 (H) 0 - 0 % [facility] SERVICES - [place] IN[facility] RBC 3.10 (L) 3.78 - 5.21 M/uL [facility] SERVICES - [place] [facility] HEMOGLOBIN 7.6 (L) 11.1 - 15.5 g/dL [facility] SERVICES - [place] [facility] HEMATOCRIT 24.9 (L) 34.3 - 46.7 % [facility] SERVICES - [place] [facility] MCV 80.3 (L) 82.7 - 97.1 fL [facility]ATORY SERVICES - [place] [facility] MCH 24.5 (L) 27.1 - 32.3 pg [facility] SERVICES [place] MCHC 30.5 (L) 31.3 - 34.9 g/dL [facility]ATORY SERVICES - [place] RDW 16.3 (H) 11.5 - 14.7 % [facility] - [place] RDW-STDEV 46.7 37.2 - 47.6 fL [facility]ATORY SERVICES - [place] PLATELETS 229 136 - 352 K/uL [facility] - [place] MPV 10.1 8.6 - 11.8 fL [facility]ATORY SERVICES - [place] NEUTROPHILS 55 44 - 74 % [facility] - [place] LYMPHOCYTES 27 16 - 44 % [facility] - [place] MONOCYTES 15 (H) 4 - 11 % [facility] - [place] EOSINOPHILS 3 0 - 6 % [facility] [place] BASOPHILS 1 0 - 1 % [facility] - [place] IMMATURE 0 0 - 1 % [facility] - [place] NEUTROPHIL 2.98 1.54 - 7.18 K/uL [facility] - [place] LYMPHOCYTE 1.45 0.69 - 3.61 K/uL [facility] - [place] MONOCYTE 0.80 0.19 - 0.95 K/uL [facility] - [place] EOSINOPHIL 0.15 0.00 - 0.44 K/uL [facility] - [place] BASOPHILS 0.03 0.00 - 0.10 K/uL [facility] - [place] IMMATURE 0.02 0.00 - 0.09 K/uL [facility] ABSOLUTE SERVICES - [place] Specimen Blood Performing Organization Address [facility] Ph one Number [facility] LABORATORY SERVICES CLIA# [id number] [place] [address] - [place] [address] [place] [address] * URINE CULTURE (08/07/2017 8:51 PM CDT) CULTURE Klebsiella pneumoniae [facility] (A)Comment: >= 100,000 cfu/mL LABORATORY Klebsiella pneumoniae [facility] Specimen Urine - Urine specimen obtained by clean catch procedure (specimen) Narrative Performed At REFERENCE LAB ACC #: [id number] [facility] LABORATOR Y [place] Antibiotic Method Susceptibility Organism AMOXICILLIN/ CLAVULANATE SADAF MCG/ML <=8/4 mcg/mL: Susceptible Klebsiella pneumoniae AMPICILLIN SADAF MCG/ML >16 mcg/mL: Resistant Klebsiella pneumoniae CEFAZOLIN SADAF MCG/ML <=2 mcg/mL: Susceptible Klebsiella pneumoniae CIPROFLOXACIN SADAF MCG/ML <=1 mcg/mL: Susceptible Klebsiella pneumoniae GENTAMICIN SADAF MCG/ML <=4 mcg/mL: Susceptible Klebsiella pneumoniae NITROFURANTOIN SADAF MCG/ML <=32 mcg/mL: Susceptible Klebsiella pneumoniae TRIMETHOPRIM/ SULFAMETHOXAZOLE SADAF MCG/ML <=2/38 mcg/mL: Susceptible Klebsiella pneumoniae Performing Organization Address [place]/[facility] Ph one Number [facility] LABORATORY CLIA # [id number] [place], [place] [address] [phone] [facility] 100 [facility] LABORATORY CLIA # [id number] [place] [address] [place] 2817 [facility] * URINALYSIS WITH REFLEX MICROSCOPIC (08/07/2017 8:51 PM CDT) COLOR UA Colorless (A) Pale to dark yellow [facility] - [place] CLARITY UA Clear Clear [facility] - [place] SPECIFIC 1.007 1.003 - 1.035 [facility] GRAVITY [facility] LABORATORY SERVICES - [place] PH UA 6.0 5.0 - 8.0 [facility] - [place] LEUKOCYTE 1+ (A) Negative [facility] ESTERASE [facility] LABORATORY SERVICES - [place] NITRITE UA Positive (A) Negative [facility] - [place] PROTEIN UA Negative Negative [facility] - [place] GLUCOSE UA Negative Negative [facility] - [place] KETONES UA Negative Negative [facility] - [place] UROBILINOGEN UA <2.0 <2.0 mg/dL [facility] - [place] BILIRUBIN UA Negative Negative [facility] - [place] BLOOD UA Negative Negative [facility] - [place] WBC UA 3-5 (A) 0 - 2 /hpf [facility] - [place] RBC UA 0-2 0 - 2 /hpf [facility] - [place] BACTERIA UA 4+ (A) Negative /hpf [facility] - [place] EPITHELIAL 0-5 0 - 5 /hpf [facility] CELLS, URINE LABORATORY SERVICES - [place] COMMENT, URINE Mucous: Few [facility] - [place] Specimen Urine - Urine specimen obtained by clean catch procedure (specimen) Performing Organization Address [place]/[facility] Ph one Number [facility] LABORATORY SERVICES CLIA# [id number] [place] [address] - [place] [address] [place] [address] * TYPE AND SCREEN (08/07/2017 4:10 PM CDT) ABO GROUP A [facility] IN[facility] RH (D) TYPE Positive [facility] ANTIBODY SCREEN Negative [facility] Specimen Blood Performing Organization Address [facility] Ph one [facility] LABORATORY CLIA# [id number] [place] [address] SERVICES-[address] * PREPARE RED BLOOD CELLS (08/07/2017 3:53 PM CDT) COMPONENT TYPE [id number] [facility] COMPONENT [id number] [facility] IDENTIFICATION [facility]-[place] [facility] UNIT ABO A [facility] UNIT RH POS [facility] COMPONENT Transfused [facility]-[place] [facility] COMPONENT [id number] [facility]PIRATION [facility] DATE/TIME [facility]-[place] COMPONENT 6200 [facility] [employer] [facility] LABORATORY SERVICES-[place] IN[facility] Specimen Performing Organization Address [facility] one Number [facility] LABORATORY CLIA# [id number] [place] [address] SERVICES-[address] * PREPARE RED BLOOD CELLS (08/07/2017 3:53 PM CDT) COMPONENT TYPE [id number] [facility] COMPONENT [id number] [facility]IF[facility]-[place] [facility] UNIT ABO A [facility] UNIT RH POS [facility] COMPONENT Transfused [facility]US [facility]-[place] [facility] COMPONENT [id number] [facility] EXPIRATION [facility] DATE/TIME [facility]-[place] COMPONENT [address] [employer] LABORATORY SERVICES-[place] INDU Specimen Other, specify Performing Organization Address [facility] Ph one Number [facility] LABORATORY CLIA# [id number] [place] [address] [phone] SERVICES-[address] * VERIFICATION BLOOD GROUP (08/07/2017 11:56 AM CDT) ABO GROUP A [facility] RH (D) TYPE Positive [facility] Specimen Blood Performing Organization Address [facility] Ph one Number [facility] LABORATORY CLIA# [id number] [place] [address] SERVICES-[address] * FERRITIN (08/07/2017 11:56 AM CDT) FERRITIN 7.0 (L) 15.0 - 150.0 ng/mL [facility] LABORATORY [place] Specimen Blood Narrative Performed At REFERENCE LAB ACC #: [id number] [facility] LABORATOR Y [place] Performing Organization Address City/State/Zipcode Ph one Number [facility] LABORATORY CLIA # [id number] [place] [address] [phone] [facility] 100 [facility] LABORATORY CLIA # [id number] [place] [address] [place] 2813 [facility] documented in this encounter Visit Diagnoses Diagnosis Acute blood loss anemia Acute posthemorrhagic anemia documented in this encounter Administered Medications Action Date Dose Rate Site Medication Order MAR Action acetaminophen (TYLENOL) tablet 650 mg 650 mg, Oral, EVERY 6 HOURS PRN, Starting Sat08/07/17 at 1549, Until Nathaly 08/08/17 at 1747, Other (See Comment), See admin instructions, Routine ALPRAZolam (XANAX) tablet 0.25 mg 0.25 mg, Oral, THREE TIMES DAILY PRN, Starting Sat08/07/17 at 1553, Until Sat08/08/17 at 1747, Anxiety, Routine 08/08/2017 8:05 AM CDT 250 mg ciprofloxacin HCl (CIPRO) tablet 250 mg Given 250 mg, Oral, EVERY 12 HOURS (BlD), First dose on Sat08/08/17 at 0745, Unti l Discontinued, Routine, Antibiotic Indication: Urinary Tract Infection(UTI ) / Infection 08/07/2017 8:14 PM CDT 20 mg dicyclomine (BENTYL) capsule 20 mg Given 20 mg, Oral, FOUR TIMES DAILY WITH MEAL S AND AT BEDTIME, First dose on Sat 8 at 1700, Until Discontinued, Routine 08/08/2017 8:22 AM CDT 20 mg dicyclomine (BENTYL) tablet 20 mg Given 20 mg, Oral, FOUR TIMES DAILY WITH MEAL S AND AT BEDTIME, First dose on Sat08/08/17 at 0815, Until Discontinued, Routine 08/08/2017 8:05 AM CDT 100 mg docusate sodium (COLACE) capsule 100 mg Given 100 mg, Oral, TWO TIMES DAILY, First dose on Sat08/07/17 at 2100, Until Discontinued, Routine 100 mg Given 08/07/2017 8:11 PM CDT 08/08/2017 8:05 AM CDT 20 mg furosemide (LASIX) tablet 20 mg Given 20 mg, Oral, DAILY, First dose on Sat08/08/17 at 0900, Until Discontinued, Routine 08/07/2017 8:11 PM CDT 300 mg gabapentin (NEURONTIN) capsule 300 mg Given 300 mg, Oral, DAILY AT BEDTIME, First dose on Sat08/07/17 at 2100, Until Discontinued, Routine 08/08/2017 8:05 AM CDT 25 mg metoprolol tartrate (LOPRESSOR) tablet Given 25 mg 25 mg, Oral, TWO TIMES DAILY, First dos e on Sat08/07/17 at 2100, Until Discontinued, Routine 25 mg Given 08/07/2017 8:12 PM CDT naloxone (NARCAN) 0.4 mg/mL injection 0.1 mg 0.1 mg, IV, SEE ADMIN INSTRUCTIONS, Starting Sat08/07/17 at 1548, Until Sat08/08/17 at 1747, Routine 08/08/2017 8:05 AM CDT 30 mg NIFEdipine (ADALAT CC) SR tablet 30 mg Given 30 mg, Oral, DAILY, First dose on Sat08/08/17 at 0900, Until Discontinued, Routine ondansetron (ZOFRAN ODT) tablet 4 mg 4 mg, Oral, EVERY 6 HOURS PRN, Starting Sat08/07/17 at 1550, Until Sat08/08/17 a t 1747, Nausea/Emesis, Routine 08/08/2017 6:33 AM CDT 40 mg pantoprazole (PROTONIX) tablet 40 mg Given 40 mg, Oral, DAILY BEFORE BREAKFAST, First dose on Sat08/08/17 at 0630, Unti l Discontinued, Routine 08/08/2017 12:15 AM CDT 75 mL/hr sodium chloride 0.9% infusion Restarted IV, at 75 mL/hr, CONTINUOUS, Starting Sat08/07/17 at 1600, Until Nathaly 08/08/17 a t 1747, Routine 75 mL/hr New Bag 08/07/2017 4:42 PM CDT 08/07/2017 8:09 PM CDT 10 mL sodium chloride flush injection 10 mL Given 10 mL, IV, SEE ADMIN INSTRUCTIONS, Starting Sat08/07/17 at 1554, Until Nathaly 08/08/17 at 1747, Routine documented in this encounter
--- OUTSIDE RECORDS SUMMARY | 2019-08-19 16:01 | XMS REPORT | Encounter Summary ---
Author Author [facility] Organization [facility] Address Unknown Phone Unavailable Care Team Providers Care Learning And Development Associate Name Role Phone Carlotta Aguayo MD PCP Unavailable Reason for Visit * Reason Comments Medication Refill Encounter Details Care Team Description Date Type Department Carlotta Aguayo MD NO ADDRESS ON FILE 08/05/2017 Refill [facility] [address] [address] Social History Date Tobacco Use Types Packs/Day Years Used Never Smoker Smokeless Tobacco: Never Used Drinks/Week oz/Week Comments Alcohol Use No Sex Assigned at Date Recorded Not on file documented as of this encounter Plan of Treatment Not on filedocumented as of this encounter Visit Diagnoses Not on filedocumented in this encounter
--- OUTSIDE RECORDS SUMMARY | 2019-08-19 16:01 | XMS REPORT | Encounter Summary ---
Author Author [facility] Organization [facility] Address Unknown Phone Unavailable Care Team Providers Care Fur Glosser Name Role Phone Carlotta Aguayo MD PCP Unavailable Reason for Visit * Reason Comments Medication Refill Encounter Details Care Team Description Date Type Department Carlotta Aguayo MD NO ADDRESS ON FILE 06/11/2017 Refill [facility] [address] [address] Social History Date Tobacco Use Types Packs/Day Years Used Never Smoker Smokeless Tobacco: Never Used Drinks/Week oz/Week Comments Alcohol Use No Sex Assigned at Date Recorded Not on file documented as of this encounter Plan of Treatment Not on filedocumented as of this encounter Visit Diagnoses Not on filedocumented in this encounter
--- OUTSIDE RECORDS SUMMARY | 2019-08-19 16:01 | XMS REPORT | Encounter Summary ---
Author Author [facility] Organization [facility] Address Unknown Phone Unavailable Care Team Providers Care Helper Electrical Name Role Phone Carlotta Aguayo MD PCP Unavailable Reason for Visit * Reason Comments Medication Refill Encounter Details Care Team Description Date Type Department Carlotta Aguayo MD NO ADDRESS ON FILE 05/28/2017 Refill [facility] [address] [address] Social History Date Tobacco Use Types Packs/Day Years Used Never Smoker Smokeless Tobacco: Never Used Drinks/Week oz/Week Comments Alcohol Use No Sex Assigned at Date Recorded Not on file documented as of this encounter Plan of Treatment Not on filedocumented as of this encounter Visit Diagnoses Not on filedocumented in this encounter
--- OUTSIDE RECORDS SUMMARY | 2019-08-19 16:01 | XMS REPORT | Encounter Summary ---
Author Author [facility] Organization [facility] Address Unknown Phone Unavailable Care Team Providers Care Welder/Installer Name Role Phone Carlotta Aguayo MD PCP Unavailable Reason for Visit * Auth/Cert Referred By Contact Referred To Contact Status Reason Specialty Diagnoses / Procedures [facility] Operating Room [address] [place] [address] Procedures COLONOSCOPY Encounter Details Care Team Description Date Type Department Vandana Rosen MD NO ADDRESS ON FILE COLONOSCOPY 06/07/2017 Surgery [facility] Operating Room [address] [place] [address] Social History Date Tobacco Use Types Packs/Day Years Used Never Smoker Smokeless Tobacco: Never Used Drinks/Week oz/Week Comments Alcohol Use No Sex Assigned at Date Recorded Not on file documented as of this encounter Last Filed Vital Signs Reading Time Taken Comments Vital Sign 115/66 06/07/2017 8:55 AM MUSIC THERAPY TEACHER Blood Pressure 88 06/07/2017 8:55 AM MUSIC THERAPY TEACHER Pulse 37.1 C (98.7 F) 06/07/2017 8:55 AM MUSIC THERAPY TEACHER Temperature 16 06/07/2017 8:55 AM MUSIC THERAPY TEACHER Respiratory Rate - - Oxygen Saturation - - Inhaled Oxygen Concentration 73 kg (161 lb) 06/07/2017 7:45 AM MUSIC THERAPY TEACHER Weight 152.4 cm (5') 06/07/2017 7:45 AM MUSIC THERAPY TEACHER Height 31.44 06/07/2017 7:45 AM MUSIC THERAPY TEACHER Body Mass Index documented in this encounter [...] be sent through Care Everywhere.* Colonoscopy: Post-op (Libyan) * Colon Polyps (Libyan) * Hemorrhoids ([place]) documented in this encounter Medications at Time [...] Vandana Rosen MD - 06/07/2017 8:13 AM MUSIC THERAPY TEACHER Patient examined; history and physical reviewed and no changes noted. Will proc eed with colonoscopy, possible biopsy. C THERAPY TEACHER documented in this encounter OR Notes * Operative Report - Vandana Rosen MD - 06/07/2017 8:44 AM MUSIC THERAPY TEACHER Colonoscopy Procedure Note Procedure: Colonoscopy --screening Pre-operative [...] 5 years., -Foll ow up with me. C THERAPY TEACHER documented in this encounter Plan of Treatment Not on filedocumented as of this encounter Procedures Comments Procedure Name Priority Date/Time Associated Diag nosis PATHOLOGY Pathology 06/07/2017 8:25 AM MUSIC THERAPY TEACHER COLONOSCOPY 06/07/2017 7:55 AM MUSIC THERAPY TEACHER documented in this encounter Results * PATHOLOGY (06/07/2017 8:25 AM MUSIC THERAPY TEACHER) CASE REPORT Surgical Pathology Report [facility] Case: [id number] [facility] [place] Authorizing Provider: Vandana Rosen MD Collected: 06/07/2017 08:25 AM Ordering Location: [facility] Received: 06/07/2017 09:43 AM Operating Room Pathologist: Ciaran Merino MD Specimens: A) - Biopsy of colon polyp at 70 cm. B) - Biopsy of colon polyp at 50 cm. FINAL DIAGNOSIS A) Biopsy, colon polyp at 70 [facility] Electronically cm: Tubular adenoma. PATHOLOGY signed by Haley, B) Biopsy, colon polyp at 50 [facility]ANT[facility]HA[facility] Ciaran V ., MD on cm: Tubular adenoma. 06/10/2017 at 11:34 CPT Code: [id number] AM ICD10 Code: D12.4 and D12.5 OPERATIVE Colonoscopy. [facility] PROCEDURE PATHOLOGY CONSULTANTSMICHAEL GROSS The specimen is received in [facility] DESCRIPTION two parts. PATHOLOGY A) Part A [...] PATHOL OGY crypts are seen, lined by MICHAEL MORE columnar cells with enlarged, hyperchromatic nuclei. Invasive neoplasm is not identified. B) Sections reveal adenomatous changes. Altered crypts are seen, lined by columnar cells with enlarged, hyperchromatic nuclei. Invasive neoplasm is not identified. Specimen Tissue Tissue specimen (specimen) Performing Organization Address City/State/Zipcode Ph one Number [facility] CLIA # [id number] [place] [address] CONSULTANTSMICHAEL [address] [place] [address] documented in this encounter Visit Diagnoses Not on filedocumented in this encounter Administered Medications Action Date Dose Rate Site Medication Order MAR Action 06/07/2017 8:17 AM MUSIC THERAPY TEACHER 50 mg meperidine (PF) (DEMEROL) injection Given INTRA-PROCEDURE PRN, Starting Sat 8 at 0817, Until Sat06/07/17 at 0852, Routine, Intra-op 06/07/2017 8:17 AM MUSIC THERAPY TEACHER 4 mg midazolam (VERSED) injection Given INTRA-PROCEDURE PRN, Starting Sat 8 at 0817, Until Sat06/07/17 at 0852, Routine, Intra-op SODIUM CHLORIDE 0.9 % INJECTION SYRINGE (CABINET OVERRIDE) 1 dose, Starting Sat06/07/17 at 0733, Until Sat06/07/17 at 0754, [place] OMNICELL: cabinet override, 06/07/2017 7:54 AM MUSIC THERAPY TEACHER 10 mL sodium chloride flush injection 10 mL Given 10 mL, IV, SEE ADMIN INSTRUCTIONS, Starting Sat06/07/17 at 0729, Until 06/08/17 at 0208, Routine, Pre-op 06/07/2017 8:17 AM MUSIC THERAPY TEACHER 10 mL sodium chloride flush injection Given INTRA-PROCEDURE PRN, Starting Sat 8 at 0817, Until Sat06/07/17 at 0852, Routine, Intra-op documented in this encounter"
--- OUTSIDE RECORDS SUMMARY | 2019-08-19 16:02 | XMS REPORT | Encounter Summary ---
Author Author [facility] Organization [facility] Address Unknown Phone Unavailable Care Team Providers Care Fabrication Supervisor Name Role Phone Carlotta Aguayo MD PCP Unavailable Reason for Visit * Reason Comments Colonoscopy due 5 yr repeat colonoscopy Encounter Details Care Team Description Date Type Department Gamal Mcknight MD NO ADDRESS ON FILE Tubular adenoma of colon (Primary Dx); Screening for colon cancer 05/27/2017 Office Visit [address] [address] Social History Date Tobacco Use Types Packs/Day Years Used Never Smoker Smokeless Tobacco: Never Used Drinks/Week oz/Week Comments Alcohol Use No Sex Assigned at Date Recorded Not on file documented as of this encounter Last Filed Vital Signs Reading Time Taken Comments Vital Sign 114/70 05/27/2017 1:27 PM BONDERIZER Blood Pressure - - Pulse - - Temperature - - Respiratory Rate - - Oxygen Saturation - - Inhaled Oxygen Concentration 73 kg (161 lb) 05/27/2017 1:27 PM BONDERIZER Weight 152.4 cm (5') 05/27/2017 1:27 PM BONDERIZER Height 31.44 05/27/2017 1:27 PM BONDERIZER Body Mass Index documented in this encounter Progress Notes * Gamal Mcknight MD - 05/28/2017 2:17 PM BONDERIZER Subjective: Era Viveros is an 76 y.o. female who presents to schedule screening colonos copy. Patient's last colonoscopy was 04/18/2012. Tubular adenoma found then. Patient now returns for repeat surveillance. Denies melena or hematochezia. Past Medical History: Diagnosis Date Chronic ischemic heart disease, unspecified GERD (gastroesophageal reflux disease) Gout Status post colonoscopy with polypectomy 04/29/2009 Past Surgical History: Procedure Laterality Date RI COLONOSCOPY FLX DX W/COLLJ SPEC WHEN PFRMD 04/29/2009 COLONOSCOPY performed by GAMAL MCKNIGHT at [facility] OR RI COLONOSCOPY FLX DX W/COLLJ SPEC WHEN PFRMD 04/18/2012 [place] [facility] [place] LIGATE FALLOPIAN TUBE Family History Problem Relation Age of Onset Colon Cancer Father Other Mother aneurysm Hypertension Sister Hypertension Brother Diabetes Brother Other Paternal Grandfather of accident Healthy Son Current Outpatient Prescriptions Medication Sig Dispense Refill bisacodyl (DULCOLAX) 5 mg Delayed Release tablet Take 4 Tablets (20 mg) by m outh see administration instructions Take 4 tablets before drinking mixture. Ta ke 2 tablets at bedtime.. 8 Tablet 0 polyethylene glycol 3350 (MIRALAX) 17 gram/dose Powder Take 18 scoops (306 G lamont) by mouth see administration instructions Dissolve 18 scoops in 64 oz Gator niall, Powerade, or Crystal Light and drink entire amount. Please follow instruct ion sheet.. 306 Gram 0 promethazine (PHENERGAN) 25 mg tablet Take 1 tablet one hour before drinking mixture. Then may take 1 tablet every 6 hours as needed for nausea.. 4 Tablet 0 gabapentin (NEURONTIN) 300 mg capsule Take 1 Capsule (300 mg) by mouth daily at bedtime. 90 Capsule 3 furosemide (LASIX) 20 mg tablet Take 1 Tab by mouth daily. 30 Tablet 0 metoprolol tartrate (LOPRESSOR) 25 mg tablet Take 1 Tab by mouth [address] 60 Tablet 0 NIFEdipine (PROCARDIA XL) 30 mg Extended Release 24 hour tablet Take 1 Tab b y mouth 2 times daily. 60 Tablet 0 raloxifene (EVISTA) 60 mg tablet Take 1 Tab by mouth daily. 30 Tablet 0 probenecid-colchicine (COLBENEMID) 0.5-500 mg Tablet Take 1 [...] No current facility-administered medications for this visit. Allergies Allergen Reactions Allopurinol Rash Indomethacin Renal [...] Remaining ROS negative and noncontributory. Objective: BP 114/70 | Ht 5' (1.524 m) | Wt 73 kg (161 lb) | BMI 31.44 kg/m General: alert, in no distress Skin: Normal. Eyes: negative Mouth: MMM no lesions Lymph Nodes: deferred Lungs: normal respiratory effort Heart: regular rate and rhythm Abdomen: Soft, non-tender. Bowel sounds normal. No masses, no organomegaly. CVA: absent Genitourinary: defer exam Extremities: extremities normal, atraumatic, no cyanosis or edema, normal stren gth, normal tone Neurologic: negative Psychiatric: non focal Orders Only on 05/28/17 (from the past 336 hour(s)) EDUCATION COLONOSCOPY - ROMI Collection Time: 05/28/17 8:44 AM Result Value Ref Range Education Name COLONOSCOPY Education URL [email or web address] EDUCATION ACCESS CODE [id number] EDUCATION ISSUE DATE May 28, 2017 EDUCATION START DATE EDUCATION COMPLETED DATE EDUCATION EXPIRATION DATE Jun 27, 2017 EDUCATION MESSAGE EVENT Scheduled Hospital Encounter on 05/16/17 (from the past 336 hour(s)) COMPREHENSIVE METABOLIC PANEL Collection Time: 05/16/17 7:44 AM Result Value Ref Range SODIUM 143 136 - 145 mmol/L POTASSIUM 3.9 3.5 - 5.1 mmol/L CHLORIDE 104 98 - 107 mmol/L CO2 22 22 - 29 mmol/L CALCIUM 8.9 8.8 - 10.2 mg/dL BUN 17 8 - 23 mg/dL CREATININE 1.67 (H) 0.51 - 0.95 mg/dL GLUCOSE 112 (H) 70 - 100 mg/dL TOTAL PROTEIN 7.3 6.6 - 8.7 g/dL ALBUMIN 4.0 3.5 - 5.2 g/dL BILIRUBIN TOTAL 0.2 <=1.2 mg/dL ALKALINE PHOSPHATASE 87 35 - 104 U/L AST 34 (H) <=33 U/L ALT 35 10 - 35 U/L GFR 30 mL/min/1.73 sq meter GFR, 36 mL/min/1.73 sq meter ANION GAP 17 4 - 20 mmol/L LIPID PANEL Collection Time: 05/16/17 7:44 AM Result Value Ref Range CHOLESTEROL 222 (H) <200 mg/dL TRIGLYCERIDE 106 <150 mg/dL HDL 73 (H) 40 - 59 mg/dL LDL CALCULATED 128 (H) <100 mg/dL NON-HDL CHOLESTEROL 149 (H) <130 mg/dL Narrative TOTAL CHOLESTEROL mg/dL Desirable <200 Borderline high 200-239 High >=240 TRIGLYCERIDES mg/dL Normal <150 Borderline high 150-199 High 200-499 Very high >=500 HDL CHOLESTEROL mg/dL Low <40 Normal 40-59 Desirable >=60 NON HDL CHOLESTEROL mg/dL Optimal <130 Near Optimal 130-159 Borderline High 160-189 Very High >=190 Calculated LDL mg/dL Optimal <100 Near Optimal 100-129 Borderline High 130-159 High 160-189 Very High >=190 ATPIII Guidelines Reference Ranges for Lipid Panels (NCEP/AMA) CBC WITH DIFFERENTIAL Collection Time: 05/16/17 7:44 AM Result Value Ref Range WBC 5.2 3.6 - 11.1 K/uL RBC 4.32 3.78 - 5.21 M/uL HEMOGLOBIN 12.2 11.1 - 15.5 g/dL HEMATOCRIT 38.2 34.3 - 46.7 % MCV 88.4 82.7 - 97.1 fL MCH 28.2 27.1 - 32.3 pg MCHC 31.9 31.3 - 34.9 g/dL RDW 13.5 11.5 - 14.7 % RDW-STDEV 43.8 37.2 - 47.6 fL PLATELETS 250 136 - 352 K/uL MPV 10.0 8.6 - 11.8 fL NEUTROPHILS 54 44 - 74 % LYMPHOCYTES 30 16 - 44 % MONOCYTES 12 (H) 4 - 11 % EOSINOPHILS 2 0 - 6 % BASOPHILS 1 0 - 1 % IMMATURE GRANULOCYTES 0 0 - 1 % NEUTROPHIL ABSOLUTE 2.82 1.54 - 7.18 K/uL LYMPHOCYTE ABSOLUTE 1.58 0.69 - 3.61 K/uL MONOCYTE ABSOLUTE 0.64 0.19 - 0.95 K/uL EOSINOPHIL ABSOLUTE 0.10 0.00 - 0.44 K/uL BASOPHILS ABSOLUTE 0.05 0.00 - 0.10 K/uL IMMATURE GRANULOCYTES ABSOLUTE 0.01 0.00 - 0.09 K/uL Assessment: Encounter Diagnoses Name Primary? Tubular adenoma of colon Yes Screening for colon cancer No contraindication to proceed. Plan: 1. Discussed the risk of colonoscopy including bleeding and perforation, and th e risks and reaction to anesthetic medications. The patient understands the risk s, any and all questions were answered to the patient's satisfaction. 2. Colonoscopy on 06/07/2017. 3. Orders Placed This Encounter bisacodyl (DULCOLAX) 5 mg Delayed Release tablet polyethylene glycol 3350 (MIRALAX) 17 gram/dose Powder promethazine (PHENERGAN) 25 mg tablet ERIZER documented in this encounter Plan of Treatment Not on filedocumented as of this encounter Visit Diagnoses Diagnosis Tubular adenoma of colon Benign neoplasm of colon Screening for colon cancer Special screening for malignant neoplas ms, colon documented in this encounter"
--- OUTSIDE RECORDS SUMMARY | 2019-08-19 16:02 | XMS REPORT | Encounter Summary ---
Author Author [facility] Organization [facility] Address Unknown Phone Unavailable Care Team Providers Care Cranberry Grower Name Role Phone Carlotta Aguayo MD PCP Unavailable Reason for Visit * Reason Comments Medication Refill Encounter Details Care Team Description Date Type Department Tania Fagan MD [address] [place] [address] 03/04/2017 Refill [facility] Primar y Care [address] [address] Social History Date Tobacco Use Types Packs/Day Years Used Never Smoker Smokeless Tobacco: Never Used Drinks/Week oz/Week Comments Alcohol Use No Sex Assigned at Date Recorded Not on file documented as of this encounter Plan of Treatment Not on filedocumented as of this encounter Visit Diagnoses Not on filedocumented in this encounter
--- OUTSIDE RECORDS SUMMARY | 2019-08-19 16:02 | XMS REPORT | Encounter Summary ---
Author Author [facility] Organization [facility] Address Unknown Phone Unavailable Care Team Providers Care Laborer Car Barn Name Role Phone Carlotta Aguayo MD PCP Unavailable Reason for Visit * Reason Comments Medication Refill Encounter Details Care Team Description Date Type Department Miguel Rodgers MD [address] [place] [address] 04/22/2017 Refill [facility] Primar y Care [place] [address] [place] [address] Social History Date Tobacco Use Types Packs/Day Years Used Never Smoker Smokeless Tobacco: Never Used Drinks/Week oz/Week Comments Alcohol Use No Sex Assigned at Date Recorded Not on file documented as of this encounter Plan of Treatment Not on filedocumented as of this encounter Visit Diagnoses Not on filedocumented in this encounter
--- OUTSIDE RECORDS SUMMARY | 2019-08-19 16:02 | XMS REPORT | Encounter Summary ---
Author Author [facility] Organization [facility] Address Unknown Phone Unavailable Care Team Providers Care Sighter Name Role Phone Carlotta Aguayo MD PCP Unavailable Encounter Details Care Team Description Date Type Department Norbert Carrillo, Gavin Solorzano, DO [address] [place] [address] [place] [address] Bolivar Boyer, Physical Therapist Scoliosis of lumbar spine, unspecified scoliosis type 02/26/2017 [facility] F ort Encounter [facility] [address] [place] [address] Social History Date Tobacco Use [...] Capsule mouth 2 times daily OMEGA RED. 02/25/2017 04/29/2017 metoprolol tartrate Take 1 Tab by 60 Tablet 0 (LOPRESSOR) 25 mg tablet mouth 2 times daily. 02/18/2017 03/18/2017 raloxifene (EVISTA) 60 mg Take 1 Tab by 30 Tablet 0 tablet mouth daily. 01/28/2017 03/04/2017 metoprolol tartrate Take 1 Tab by 60 Tablet 0 (LOPRESSOR) 25 mg tablet mouth 2 times daily. 01/28/2017 03/04/2017 NIFEdipine (PROCARDIA XL) Take 1 Tab by 60 Tablet 0 30 mg Extended Release 24 mouth 2 times hour tablet daily. 08/31/2016 03/04/2017 furosemide (LASIX) 20 mg Take 1 Tab by 30 Tablet 5 tablet mouth daily. 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 06/18/2016 06/24/2017 dicyclomine (BENTYL) 20 Take 1 Tab by 120 Tablet 5 mg tablet mouth 4 times daily before meals and at bedtime. 05/21/2016 04/02/2017 probenecid-colchicine Take 1 Tab by 60 Tablet 2 (COLBENEMID) 0.5-500 mg mouth daily. Tablet 02/16/2016 10/16/2017 ALPRAZolam (XANAX) 0.25 Take 1 [...] day . documented as of this encounter Miscellaneous Notes * Therapy Treatment - Bolivar Boyer, Physical Therapist - 02/26/2017 4:34 PM COMPUTER NETWORK SUPPORT SPECIALIST Physical Therapy Discharge [id number] Patient Name: Era Viveros : 1940 Visit # 19 Start of Services: 12/13/16 Date of D/C: 02/26/17 Diagnosis/Reason for Treatment: Lumbar Scoliosis Discharge Date: 02/26/2017 Charges Time In: 1510 Time Out: 1603 Total Time: 53 minutes IN MINUTES: Therapeutic Exercise- 30, Therapeutic Activity - 15 DISCHARGE SUMMARY Compliance: Patient attended 19 out of 21 sessions. With: 1 Cancellations and 1 No shows. FUNCTION COMMENTS Gait The patient reports she can ambulate 20 minutes with shopping cart at [employer] Pain 0/10 current pain level and 0/10 worst pain level in the last 24 hours. Oswestry 10% Progress: Initial Oswestry was 44% and now decreased to 10% Goals Met: 3/4 STG met. 3/5 LTGs met Patient Goal: progressing G-Codes and Intensity Modifiers Modifiers Current Status G8990 - Other PT/OT current status: Other physical or occupationa l primary functional limitation, current status, at therapy episode outset and a t reporting intervals CI: At least 1% but less than 20% impaired, limited or res tricted Goal Status G8991 - Other PT/OT goal status: Other physical or occupational prim leatha functional limitation, projected goal status, at therapy episode outset, at reporting intervals, and at discharge or to end reporting CJ: At least 20% but l ess than 40% impaired, limited, or restricted DC Status G8992 - Other PT/OT discharge status: Other physical or occupational p rimary functional limitation, discharge status, at discharge from therapy or to end reporting CI: At least 1% but less than 20% impaired, limited or restricted Intensity modifier determined by: Oswestry Reason for Discharge: maximized therapy potential. Patient safe to continue rehab independently with H EP. Comments: --- Discharge survey given --- Rehab + pass given for 10 free HFL visits --- Chau shirt given Call [phone] with any questions: Bolivar Boyer, Physical Therapist Therapist Signature Contact Information [facility] [address] [place] [address], [place] [address] UTER NETWORK SUPPORT SPECIALIST documented in this encounter Plan of Treatment Not on filedocumented as of this encounter Visit Diagnoses Not on filedocumented in this encounter
--- OUTSIDE RECORDS SUMMARY | 2019-08-19 16:02 | XMS REPORT | Encounter Summary ---
Author Author [facility] Organization [facility] Address Unknown Phone Unavailable Care Team Providers Care Fur Blowing Machine Operator Name Role Phone Carlotta Aguayo MD PCP Unavailable Encounter Details Care Team Description Date Type Department Vandana Rosen MD NO ADDRESS ON FILE Special screening for malignant neoplasm s, colon (Primary Dx) 05/28/2017 Orders Only [address] [address] Social History Date Tobacco Use Types Packs/Day Years Used Never Smoker Smokeless Tobacco: Never Used Drinks/Week oz/Week Comments Alcohol Use No Sex Assigned at Date Recorded Not on file documented as of this encounter Plan of Treatment Not on filedocumented as of this encounter Procedures Comments Procedure Name Priority Date/Time Associated Diag nosis EDUCATION COLONOSCOPY Routine 05/28/2017 Special screening for 8:44 AM RIBBON CLEANER malignant neoplasms, colon documented in this encounter Results * EDUCATION COLONOSCOPY - ROMI (05/28/2017 8:44 AM RIBBON CLEANER) Education Name COLONOSCOPY ROMI EDUCATION INTERFACE Education URL [email or web address] ROMI E DUCATION mmi INTERFACE EDUCATION [id number] ROMI EDUCATION ACCESS CODE INTERFACE EDUCATION ISSUE May 28, 2017 ROMI EDUCATION DATE INTERFACE EDUCATION START ROMI EDUCATION DATE INTERFACE EDUCATION This program was not started ROMI EDU CATION COMPLETED DATE and flagged as on: May EDUCATION Jun 27, 2017 ROMI EDUCATION EXPIRATION DATE INTERFACE EDUCATION ROMI EDUCATION MESSAGE EVENT INTERFACE Specimen Performing Organization Address City/State/Zipcode Ph one Number ROMI EDUCATION INTERFACE documented in this encounter Visit Diagnoses Diagnosis Special screening for malignant neoplas ms, colon documented in this encounter
--- OUTSIDE RECORDS SUMMARY | 2019-08-19 16:02 | XMS REPORT | Encounter Summary ---
Author Author [facility] Organization [facility] Address Unknown Phone Unavailable Care Team Providers Care Administrative Personal Assistant Name Role Phone Carlotta Aguayo MD PCP Unavailable Encounter Details Care Team Description Date Type Department Norbert Carrillo, Gavin Solorzano, DO [address] [place] [address] Anay Thompson, Satin Finisher [phone] Scoliosis of lumbar spine, unspecified s coliosis type 02/19/2017 [facility] F ort Encounter [facility] [address] [place] [address] Social History Date Tobacco Use [...] Capsule mouth 2 times daily OMEGA RED. 02/18/2017 03/18/2017 raloxifene (EVISTA) 60 mg Take [...] encounter Miscellaneous Notes * Therapy Treatment - Anay Thompson, Satin Finisher - 02/19/2017 3:[address] FREIGHT BRAKE COUPLER OUT PATIENT THERAPY 3RD VISIT UPDATE [id number] Patient Name: Era Viveros : 1940 Visit # 17 Charges Time In: 14:50 Time Out: 15:30 Total Time: 40 IN MINUTES: Therapeutic Exercise- 40 Subjective Pt reports she did some housework at home today. Pt reports the pain increases with certain activities. Pt relates when she has pain she sits down and the pain quits. Pt reports she is able to walk in [employer] [place] better. Pain at onset of treatment: 0/10 Pain at completion of treatment 0/10 Objective Treatment completed per flow sheet - scanned document. Assessment Pain has remained similar, Patient is completing HEP as recommended, Functional status is improved. Ongoing Screening of Patient: The patient has not been hospitalized recently The patient has not had any changes to medications The patient has not experienced any changes in allergies Plan Continue POC established for goals and signed by physician. Anay Thompson, Satin Finisher Contact Information [facility] [address] [place] [address] Jose De Jesus [place] [address] Electronically signed by Anay Thompson, Satin Finisher at 3:[address] FREIGHT BRAKE COUPLER documented in this encounter Plan of Treatment Not on filedocumented as of this encounter Visit Diagnoses Not on filedocumented in this encounter
--- OUTSIDE RECORDS SUMMARY | 2019-08-19 16:02 | XMS REPORT | Encounter Summary ---
Author Author [facility] Organization [facility] Address Unknown Phone Unavailable Care Team Providers Care Engineer Remote Control Diesel Name Role Phone Carlotta Aguayo MD PCP Unavailable Reason for Visit * Reason Comments Medication Refill Encounter Details Care Team Description Date Type Department Carlotta Aguayo MD NO ADDRESS ON FILE 05/14/2017 Refill [facility] [address] [address] Social History Date Tobacco Use Types Packs/Day Years Used Never Smoker Smokeless Tobacco: Never Used Drinks/Week oz/Week Comments Alcohol Use No Sex Assigned at Date Recorded Not on file documented as of this encounter Plan of Treatment Not on filedocumented as of this encounter Visit Diagnoses Not on filedocumented in this encounter
--- OUTSIDE RECORDS SUMMARY | 2019-08-19 16:02 | XMS REPORT | Encounter Summary ---
Author Author [facility] Organization [facility] Address Unknown Phone Unavailable Care Team Providers Care Trade Mark Examiner Name Role Phone Carlotta Aguayo MD PCP Unavailable Reason for Visit * Reason Comments Medication Refill Encounter Details Care Team Description Date Type Department Radha Torres, RAMP SERVICE EMPLOYEE [address] [place] [address] 04/29/2017 Refill [facility] Primar y Care [place] [address] [place] [address] Social History Date Tobacco Use Types Packs/Day Years Used Never Smoker Smokeless Tobacco: Never Used Drinks/Week oz/Week Comments Alcohol Use No Sex Assigned at Date Recorded Not on file documented as of this encounter Plan of Treatment Not on filedocumented as of this encounter Visit Diagnoses Not on filedocumented in this encounter
--- OUTSIDE RECORDS SUMMARY | 2019-08-19 16:02 | XMS REPORT | Encounter Summary ---
Author Author [facility] Organization [facility] Address Unknown Phone Unavailable Care Team Providers Care Director Nurses' Registry Name Role Phone Carlotta Aguayo MD PCP Unavailable Encounter Details Care Team Description Date Type Department Norbert Carrillo, Gavin Solorzano, DO [address] [place] [address] Anay Thompson, Woolen Suiting Shrinker [phone] Scoliosis of lumbar spine, unspecified s coliosis type 02/22/2017 [facility] F ort Encounter [facility] [address] [place] [address] Social History Date Tobacco Use [...] Notes * Therapy Treatment - Anay Thompson, Woolen Suiting Shrinker - 02/22/2017 4:14 PM SWITCH TENDER OUT PATIENT THERAPY 3RD VISIT UPDATE [id number] Patient Name: Era Viveros : 1940 Visit # 18 Charges Time In:15:05 Time Out:15:55 Total Time: 50 IN MINUTES: Therapeutic Exercise- 40 Subjective Pt reports she rode to [place] and back yesterday causing her back pain to i ncrease. Pt has no new complaints. Pain at onset of treatment: 2/10 Pain at completion of treatment 0/10 Objective Treatment completed per flow sheet - scanned document. Assessment Pain has decreased after treatment. Patient is completing HEP as recommended, Thai suggs verbalizes increase ease of completing treatment. Ongoing Screening of Patient: The patient has not been hospitalized recently The patient has not had any changes to medications The patient has not experienced any changes in allergies Plan Continue POC established for goals and signed by physician. Anay Thompson, Woolen Suiting Shrinker Contact Information [facility] [address] [place] [address] Electronically signed by Anay Thompson, Woolen Suiting Shrinker at 4:18 PM SWITCH TENDER documented in this encounter Plan of Treatment Not on filedocumented as of this encounter Visit Diagnoses Not on filedocumented in this encounter
--- OUTSIDE RECORDS SUMMARY | 2019-08-19 16:02 | XMS REPORT | Encounter Summary ---
Author [facility] Address Unknown Phone Unavailable Care Team Providers Care Professor Of Musicology Name Role Phone Carlotta Aguayo MD PCP Unavailable Encounter Details Care Team Description Date Type Department Carlotta Aguayo MD NO ADDRESS ON FILE Ftsc, Outpt Lab 05/16/2017 [facility] Outpatient Encounter Laboratory [address] [address] Social History Date Tobacco Use [...] Capsule mouth 2 times daily OMEGA RED. 05/16/2017 05/20/2018 gabapentin (NEURONTIN) Take 1 90 Capsule 3 300 mg Capsule (300 capsuleIndications: mg) by mouth Neuropathy daily at bedtime. 05/14/2017 06/11/2017 furosemide (LASIX) 20 mg Take 1 Tab by 30 Tablet 0 tablet mouth daily. 04/29/2017 06/03/2017 metoprolol tartrate Take 1 Tab by 60 Tablet 0 (LOPRESSOR) 25 mg tablet mouth 2 times daily. 04/29/2017 06/03/2017 NIFEdipine (PROCARDIA XL) Take 1 Tab by 60 Tablet 0 30 mg Extended Release 24 mouth 2 times hour tablet daily. 04/22/2017 05/28/2017 raloxifene (EVISTA) 60 mg Take 1 Tab [...] Associated Diag nosis CBC WITH DIFFERENTIAL Stat 05/16/2017 Iron def iciency anemia, 7:44 AM PRESS HAND SUPERVISOR unspecified iron deficiency anemia type LIPID PANEL Stat 05/16/2017 Other hyperlipi demia 7:44 AM PRESS HAND SUPERVISOR Essential hypertension COMPREHENSIVE METABOLIC Stat 05/16/2017 Other hyperlipidemia PANEL 7:44 AM PRESS HAND SUPERVISOR Essential hypertens ion documented in this encounter Results * CBC WITH DIFFERENTIAL (05/16/2017 7:44 AM PRESS HAND SUPERVISOR) WBC 5.2 3.6 - 11.1 K/uL [facility] [place] RBC 4.32 3.78 - 5.21 M/uL [facility] [place] HEMOGLOBIN 12.2 11.1 - 15.5 g/dL [facility] [place] HEMATOCRIT 38.2 34.3 - 46.7 % [facility] [place] MCV 88.4 82.7 - 97.1 fL [facility] [place] MCH 28.2 27.1 - 32.3 pg [facility] [place] MCHC 31.9 31.3 - 34.9 g/dL [facility] [place] RDW 13.5 11.5 - 14.7 % [facility] [place] RDW-STDEV 43.8 37.2 - 47.6 fL [facility] [place] PLATELETS 250 136 - 352 K/uL [facility] [place] MPV 10.0 8.6 - 11.8 fL [facility] [place] NEUTROPHILS 54 44 - 74 % [facility] [place] LYMPHOCYTES 30 16 - 44 % [facility] [place] MONOCYTES 12 (H) 4 - 11 % [facility] [place] EOSINOPHILS 2 0 - 6 % [facility] [place] BASOPHILS 1 0 - 1 % [facility] [place] IMMATURE 0 0 - 1 % [facility] [place] NEUTROPHIL 2.82 1.54 - 7.18 K/uL [facility] [place] LYMPHOCYTE 1.58 0.69 - 3.61 K/uL [facility] [place] MONOCYTE 0.64 0.19 - 0.95 K/uL [facility] [place] EOSINOPHIL 0.10 0.00 - 0.44 K/uL [facility] [place] BASOPHILS 0.05 0.00 - 0.10 K/uL [facility] [place] IMMATURE 0.01 0.00 - 0.09 K/uL [facility] [place] Specimen Blood Performing Organization Address City/State/Zipcode Ph one Number [facility] CLIA# [id number] [place] [address] - [place] [address] [place] [address] BLVD * LIPID PANEL (05/16/2017 7:44 AM PRESS HAND SUPERVISOR) CHOLESTEROL 222 (H) <200 mg/dL [facility] [place] TRIGLYCERIDE 106 <150 mg/dL [facility] [place] HDL 73 (H) 40 - 59 mg/dL [facility] [place] LDL CALCULATED 128 (H) <100 mg/dL [facility] [place] NON-HDL 149 (H) <130 mg/dL [facility] CHOLESTEROL LAB[facility]ATORY [facility] - [place] Specimen Blood Narrative Performed At TOTAL CHOLESTEROL mg/dL [facility] Desirable <200 SERVICES - [facility] Borderline high 200-239 INDU High >=240 TRIGLYCERIDES [...] for Lipid Panels (NCEP/AMA) Performing Organization Address City/State/[place] Ph one Number [facility] CLIA# [id number] [place], [place] [address] - [place] [address] [facility] * COMPREHENSIVE METABOLIC PANEL (05/16/2017 7:44 AM PRESS HAND SUPERVISOR) SODIUM 143 136 - 145 mmol/L [facility] [place] POTASSIUM 3.9 3.5 - 5.1 mmol/L [facility] [place] CHLORIDE 104 98 - 107 mmol/L [facility] [place] CO2 22 22 - 29 mmol/L [facility] [place] CALCIUM 8.9 8.8 - 10.2 mg/dL [facility] [place] BUN 17 8 - 23 mg/dL [facility] [place] CREATININE 1.67 (H) 0.51 - 0.95 mg/dL [facility] Comment: LABORATORY The GFR result is not SERVICES - [facility] clinically significant on [place] patients <18 or >70 years of age. GLUCOSE 112 (H) 70 - 100 mg/dL [facility] [place] TOTAL PROTEIN 7.3 6.6 - 8.7 g/dL [facility] - [facility] INDU ALBUMIN 4.0 3.5 - 5.2 g/dL [facility] [place] BILIRUBIN TOTAL 0.2 <=1.2 mg/dL [facility] [place] ALKALINE 87 35 - 104 U/L [facility]OSPHATASE [facility] [place] AST 34 (H) <=33 U/L [facility] [place] ALT 35 10 - 35 U/L [facility] [place] GFR 30 mL/min/1.73 sq meter [facility] Comment: LABORATORY eGFR has not been validated SERVICES - [facility] for use in the elderly (> 70 [...] please refer to the GFR result. GFR, 36 mL/min/1.73 sq meter [facility] [place] ANION GAP 17 4 - 20 mmol/L [facility] [place] Specimen Blood Performing Organization Address City/State/[facility] [email or web address] Ph one Number [facility] CLIA# [id number] [place] [address] - [place] [address] [place], [place] [address]VD documented in this encounter Visit Diagnoses Diagnosis Other hyperlipidemia Essential hypertension Unspecified essential hypertension Iron deficiency anemia, unspecified iro n deficiency anemia type documented in this encounter
--- OUTSIDE RECORDS SUMMARY | 2019-08-19 16:02 | XMS REPORT | Encounter Summary ---
Author Author [facility] Organization [facility] Address Unknown Phone Unavailable Care Team Providers Care Chief Architect Name Role Phone Carlotta Aguayo MD PCP Unavailable Reason for Visit * Reason Comments Medication Refill Encounter Details Care Team Description Date Type Department Carlotta Aguayo MD NO ADDRESS ON FILE 04/02/2017 Refill [facility] [address] [address] Social History Date Tobacco Use Types Packs/Day Years Used Never Smoker Smokeless Tobacco: Never Used Drinks/Week oz/Week Comments Alcohol Use No Sex Assigned at Date Recorded Not on file documented as of this encounter Plan of Treatment Not on filedocumented as of this encounter Visit Diagnoses Not on filedocumented in this encounter
--- OUTSIDE RECORDS SUMMARY | 2019-08-19 16:02 | XMS REPORT | Encounter Summary ---
Author Author [facility] Organization [facility] Address Unknown Phone Unavailable Care Team Providers Care Bag Machine Set Up Operator Name Role Phone Carlotta Aguayo MD PCP Unavailable Reason for Visit * Reason Comments Annual Wellness Visit (Medicare) Results lab Medication Question will refill gabapentin, ortho 4 states was but she does not need to go back now. Encounter Details Care Team Description Date Type Department Carlotta Aguayo MD NO ADDRESS ON FILE DDD (degenerative disc disease), lumbar (Primary Dx); Neuropathy; Essential hypertension; Prediabetes; Renal insufficiency 05/16/2017 Office Visit [address] [address] Social History Date Tobacco Use Types Packs/Day Years Used Never Smoker Smokeless Tobacco: Never Used Drinks/Week oz/Week Comments Alcohol Use No Sex Assigned at Date Recorded Not on file documented as of this encounter Last Filed Vital Signs Reading Time Taken Comments Vital Sign 120/78 05/16/2017 8:47 AM FOOD AND NUTRITION PROFESSOR Blood Pressure - - Pulse 36.9 C (98.5 F) 05/16/2017 8:47 AM FOOD AND NUTRITION PROFESSOR Temperature - - Respiratory Rate - - Oxygen Saturation - - Inhaled Oxygen Concentration 76.7 kg (169 lb) 05/16/2017 8:47 AM FOOD AND NUTRITION PROFESSOR Weight 152.4 cm (5') 05/16/2017 8:47 AM FOOD AND NUTRITION PROFESSOR Height 33.01 05/16/2017 8:47 AM FOOD AND NUTRITION PROFESSOR Body Mass Index documented in this encounter Progress Notes * Carlotta Aguayo MD - 05/20/2017 9:52 AM FOOD AND NUTRITION PROFESSOR HISTORY OF PRESENT ILLNESS Era Viveros, a 76 y.o. female presents with a Chief Complaint of Annual [facility] Visit (Medicare); Results (lab); and Medication Question (will refill g abapentin, ortho 4 states was but she does not need to go back now.) Subjective HPI here with follow up multiple concerns. LDD, prediabetes with renal insuffici ency and hypertension. REVIEW OF SYSTEMS Review of Systems Constitutional: Negative for activity change, appetite change, chills, fever and unexpected weight change. HENT: Negative for congestion. Eyes: Negative for visual disturbance. Respiratory: Negative for cough. Genitourinary: Negative for menstrual problem. Musculoskeletal: Positive for arthralgias, back pain and myalgias. Neurological: Negative for weakness and headaches. Objective PHYSICAL EXAM BP 120/78 | Temp 98.5 F (36.9 C) | Ht 5' (1.524 m) | Wt 76.7 kg (169 lb) | BMI 33.01 kg/m Physical Exam Constitutional: She is oriented to person, place, and time. She appears well-dev eloped and well-nourished. HENT: Head: Normocephalic. Right Ear: External ear normal. Left Ear: External ear normal. Nose: Nose normal. Mouth/Throat: Oropharynx is clear and moist. Eyes: Conjunctivae and EOM are normal. Pupils are equal, round, and reactive to light. Neck: Normal range of motion. Neck supple. Cardiovascular: Normal rate, regular rhythm and normal heart sounds. Pulmonary/Chest: Effort normal and breath sounds normal. Abdominal: Soft. Bowel sounds are normal. Musculoskeletal: She exhibits tenderness (low back). Neurological: She is alert and oriented to person, place, and time. She has norm al reflexes. Skin: Skin is warm and dry. Psychiatric: She has a normal mood and affect. Her behavior is normal. Lab Results Component Value Date/Time NA 143 05/16/2017 07:44 AM K 3.9 05/16/2017 07:44 AM CL 104 05/16/2017 07:44 AM CO2 22 05/16/2017 07:44 AM CA 8.9 05/16/2017 07:44 AM BUN 17 05/16/2017 07:44 AM CREAT 1.67 (H) 05/16/2017 07:44 AM GLUCOSE 112 (H) 05/16/2017 07:44 AM TOTALPROTEIN 7.3 05/16/2017 07:44 AM ALBUMIN 4.0 05/16/2017 07:44 AM BILITOTAL 0.2 05/16/2017 07:44 AM ALKPHOS 87 05/16/2017 07:44 AM AST 34 (H) 05/16/2017 07:44 AM ALT 35 05/16/2017 07:44 AM ANIONGAP 17 05/16/2017 07:44 AM BCRATIO 13.5 03/06/2012 07:50 AM Assessment ASSESSMENT and PLAN: ICD-10-CM ICD-9-CM 1. DDD (degenerative disc disease), lumbar M51.36 722.52 2. Neuropathy G62.9 355.9 gabapentin (NEURONTIN) 300 mg capsule 3. Essential hypertension I10 401.9 COMPREHENSIVE METABOLIC PANEL 4. Prediabetes R73.03 790.29 HEMOGLOBIN A1C COMPREHENSIVE METABOLIC PANEL 5. Renal insufficiency N28.9 593.9 COMPREHENSIVE METABOLIC PANEL Current Outpatient Prescriptions: gabapentin (NEURONTIN) 300 mg capsule, Take 1 Capsule (300 mg) by mouth amirah ly at bedtime., Disp: 90 Capsule, Rfl: 3 furosemide (LASIX) 20 mg tablet, Take 1 Tab by mouth daily., Disp: 30 Table t, Rfl: 0 metoprolol tartrate (LOPRESSOR) 25 mg tablet, Take 1 Tab by mouth 2 times d aily., Disp: 60 Tablet, Rfl: 0 NIFEdipine (PROCARDIA XL) 30 mg Extended Release 24 hour tablet, Take 1 Tab by mouth 2 times daily., Disp: 60 Tablet, Rfl: 0 raloxifene (EVISTA) 60 mg tablet, Take 1 Tab by mouth daily., Disp: 30 Tabl et, Rfl: 0 probenecid-colchicine (COLBENEMID) 0.5-500 mg Tablet, Take 1 Tab by mouth d aily., Disp: 60 Tablet, Rfl: 0 HYDROcodone-acetaminophen (NORCO) 5-325 mg tablet, Take 1 Tablet by mouth e very 4 hours as needed for Pain, Moderate., Disp: 120 Tablet, Rfl: 0 dicyclomine (BENTYL) 20 mg tablet, Take 1 Tab by mouth 4 times daily before meals and at bedtime., Disp: 120 Tablet, Rfl: 5 ALPRAZolam (XANAX) 0.25 mg tablet, Take 1 Tablet (0.25 mg) by mouth 3 times daily as needed for Anxiety., Disp: 90 Tablet, Rfl: 3 ferrous sulfate (FEOSOL) 325 mg (65 mg iron) tablet, Take 1 Tablet (325 mg) by mouth 2 times daily. (Patient taking differently: Take 325 mg by mouth daily . ), Disp: 60 Tablet, Rfl: 3 albuterol HFA 90 mcg inhaler, Take 2 Puffs by inhalation every 6 hours as n eeded for Shortness of Breath., Disp: 8.5 Gram, Rfl: 0 0mega-3 fatty acids-vitamin E (FISH OIL) 1,000 mg Capsule, Take 3 Capsule b y mouth 2 times daily OMEGA RED. , Disp: , Rfl: lansoprazole (PREVACID) 15 mg Oral CpDR, Take 15 mg by mouth 1 time daily a s needed . , Disp: , Rfl: aspirin (BABY ASPIRIN) 81 mg Oral Chew, Take 81 mg by mouth every other day . , Disp: , Rfl: MEDICARE WELLNESS VISIT Era Viveros is a 76 y.o. female here today for her Annual Wellness Visit (Rashad bentley); Results (lab); and Medication Question (will refill gabapentin, ort ho 4 states was but she does not need to go back now.) . HEALTH RISK ASSESSMENT She has completed her Health Risk Assessment. I have reviewed this with the luis angel castillo. See scanned copy in chart. Areas of self-identified risk are addressed be low. In general, the patient feels they are in good physical health. MEDICAL RECORD UPDATE Past Medical History: Diagnosis Date Chronic ischemic heart disease, unspecified GERD (gastroesophageal reflux disease) Gout Status post colonoscopy with polypectomy 04/29/2009 Past Surgical History: Procedure Laterality Date RI COLONOSCOPY FLX DX W/COLLJ SPEC WHEN PFRMD 04/29/2009 COLONOSCOPY performed by GAMAL ROSEN at [facility] OR RI COLONOSCOPY FLX DX W/COLLJ SPEC WHEN PFRMD 04/18/2012 COLONOSCOPY performed by Gamal Rosen MD at [facility] OR RI LIGATE FALLOPIAN TUBE Family History Problem Relation Age of Onset Colon Cancer Father Other Mother aneurysm Hypertension Sister Hypertension Brother Diabetes Brother Other Paternal Grandfather of accident Healthy Son Current medications and allergies were reviewed and updated in computerized [facility] ent record. [facility] Providers: Patient Care Team: Carlotta Aguayo MD as PCP - General No Patient Care Coordination Note on file. DEMENTIA SCREENING The patient and spouse does not report concerns regarding cognitive or behaviora l issues. Cognitive ability was also observed and assessed throughout the exam and a MMS was not felt to be indicated. Mini-Mental Status Exam DEPRESSION SCREENING (QM) PHQ2: Positive: PHQ-2 score > 2 or PHQ-9 score > 9 PHQ-2 Total: 1 (05/16/17 08) Her depression screen was normal EXAMINATION BP 120/78 | Temp 98.5 F (36.9 C) | Ht 5' (1.524 m) | Wt 76.7 kg (169 lb) | BMI 33.01 kg/m Blood Pressure BP Readings from Last 3 Encounters: 05/16/17 120/78 08/30/16 130/80 05/24/16 128/88 BMI POC (QM) Body mass index is 33.01 kg/m. Normal BMI range: 18 & older: > or = 18.5 and < 25 Abnormal high BMI: Patient counseled on lifestyle modifications including weight loss and daily exercise. No plan of care recommended. Patient is 65 years or older and has following und erlying health condition: chronic illness or physical disability. Visual Acuity Corrected: L 20/30 R 20/50 Nursing Visual Acuity Documentation: R Eye: 20/50 (05/16/17 08) L Eye: 20/30 (05/16/17 08) Corrected or Uncorrected?: Uncorrected (05/16/17799) Hearing screen Degree of hearing loss: normal FUNCTIONAL ABILITY AND SAFETY Pain Assessment Are you having pain right now? Yes Rate your pain on a scale of 1 - 10: 1 Abuse screen/ and home safety evaluation Negative Fall Risk (QM) She has had no falls in the past year. Social Support/Ewing Patient resides with spouse in independent living. Activities of Daily Living Requires assistance with no ADLs Adult Nutritional Screen No nutritional concerns Tobacco Use (QM) reports that she has never smoked. She has never used smokeless tobacco. She is not a tobacco user. Alcohol Use reports that she does not drink alcohol. Exercise/Other Exercise: never END OF LIFE PLANNING Patient's End of life planning was discussed and questions answered. She has an advanced directive, but a copy has not been provided. Asked to bring a copy for review and scanning into the medical record. Current documents revie wed / provided as applicable. I have no objection to the patient's stated End of Life planning. PREVENTIVE CARE GUIDELINES Written Screening Schedule for the next 5-10 years developed and provided to luis angel castillo. Preventive Care Recommendations for AVERAGE Risk Adult Females Recommended Measure Frequency Strength Annual Exam / Wellness Yearly Mammography All females age 50 to 74 every 2 years B Cervical Cancer Screening All females (who have not had a hysterectomy) every 3 years age 21-65 A Osteoporosis Screening First time screening at age 65, follow-up intervals are n ot clearly established at this time B Lipid Screening All females >35 with additional cardiovascular risk factors / frequency suggested as every 5 years A Colon Cancer Screening Colonoscopy every 10 years or Fecal Occult Blood testing yearly A Immunizations Influenza yearly Pneumococcal once after 65 Zostavax once after age 60 Diabetic screening Screening recommended for adults with BP 135/80 Frequently is indeterminate B Blood Pressure screening Yearly A Health Maintenance Due Topic Date Due OSTEOPOROSIS SCREENING 2005 COLORECTAL SCREENING 04/18/2017 ORDERS / REFERALS / COUNSELING AND FOLLOW-UP Based upon these findings and review of any previous Wellness Visit recommendati ons the following treatment plan was recommended and discussed with the patient and spouse. No previously unaddressed health risks were detected. Recommended co ntinuing current level of support, with repeat assessment in 1 year or sooner as needed. Orders Placed This Encounter HEMOGLOBIN A1C CMP DISCONTD: gabapentin (NEURONTIN) 300 mg capsule gabapentin (NEURONTIN) 300 mg capsule Education and counseling provided: Age appropriate based on today's review and evaluation Ms. Viveros voiced understanding and agreement with the treatment plan. She unde rstands the importance of taking her medications and keeping follow-up appointme nts. All questions were answered. Sibgg-Bdywp-[id number] will be provided to niru ent upon check-out. ACUTE AND/OR CHRONIC ISSUES REQUIRING EVALUATION AND MANAGEMENT OUTSIDE THE [facility] VISIT Yes: Per E&M documentation: AND NUTRITION PROFESSOR * Carlotta Aguayo MD - 05/16/2017 8:51 AM FOOD AND NUTRITION PROFESSOR She no falls in the past year. AND NUTRITION PROFESSOR documented in this encounter Plan of Treatment Not on filedocumented as of this encounter Results * COMPREHENSIVE METABOLIC PANEL (08/13/2017 7:35 AM CDT) [facility] SODIUM 145 136 - 145 mmol/L [facility] [place] [facility] POTASSIUM 3.5 3.5 - 5.1 mmol/L [facility] - [place] CHLORIDE 105 98 - 107 mmol/L [facility] [place] CO2 22 22 - 29 mmol/L [facility] [place] [facility] CALCIUM 8.4 (L) 8.8 - 10.2 mg/dL [facility] [place] BUN 11 8 - 23 mg/dL [facility] [place] [facility] CREATININE 1.59 (H) 0.51 - 0.95 mg/dL [facility] Comment: LABORATORY The GFR result is not SERVICES - [place] clinically significant on [place] patients <18 or >70 years of age. GLUCOSE 113 (H) 70 - 100 mg/dL [facility] - [place] [facility] TOTAL PROTEIN 6.3 (L) 6.6 - 8.7 g/dL [facility] - [place] ALBUMIN 3.7 3.5 - 5.2 g/dL [facility] - [place] BILIRUBIN TOTAL 0.2 <=1.2 mg/dL [facility] - [place] ALKALINE 77 35 - 104 U/L [facility] PHOSPHATASE LAB[facility]ATORY SERVICES - [place] AST 27 <=33 U/L [facility] [place] ALT 22 10 - 35 U/L [facility] - [place] GFR 32 mL/min/1.73 sq meter [facility] Comment: LABORATORY eGFR has not been validated SERVICES - [place] for use in the elderly (> 70 [place] years of age), women, patients with serious [...] GFR result. GFR, 38 mL/min/1.73 sq meter [facility] - [place] ANION GAP 18 4 - 20 mmol/L [facility] - [place] Specimen Blood Performing Organization Address City/State/Zipcoks Ph one Number [facility] CLIA# [id number] [place] [address] - [address] * HEMOGLOBIN A1C (08/13/2017 7:35 AM CDT) HEMOGLOBIN A1C 5.5 4.8 - 5.9 % [facility] [place] EST. AVG 111 mg/dL [facility] GLUCOSE, A1C LABORATORY SERVICES - [place] Specimen Blood Performing Organization Address City/State/Zipcode Ph one Number [facility] CLIA# [id number] [place], [place] [address] - [address] documented in this encounter Visit Diagnoses Diagnosis DDD (degenerative disc disease), lumbar Degeneration of lumbar or lumbosacral i ntervertebral disc Neuropathy Mononeuritis of unspecified site Essential hypertension Unspecified essential hypertension Prediabetes Other abnormal glucose Renal insufficiency Unspecified disorder of kidney and uret er documented in this encounter"
--- OUTSIDE RECORDS SUMMARY | 2019-08-19 16:02 | XMS REPORT | Encounter Summary ---
Author Author [facility] Organization [facility] Address Unknown Phone Unavailable Care Team Providers Care Rubber Vulcanizing Machine Operator Name Role Phone Carlotta Aguayo MD PCP Unavailable Reason for Visit * Reason Comments Medication Refill Encounter Details Care Team Description Date Type Department Tania Fagan MD [address] [place] [address] 04/10/2017 Refill [facility] Primar y Care [address] [address] Social History Date Tobacco Use Types Packs/Day Years Used Never Smoker Smokeless Tobacco: Never Used Drinks/Week oz/Week Comments Alcohol Use No Sex Assigned at Date Recorded Not on file documented as of this encounter Plan of Treatment Not on filedocumented as of this encounter Visit Diagnoses Not on filedocumented in this encounter
--- OUTSIDE RECORDS SUMMARY | 2019-08-19 16:02 | XMS REPORT | Encounter Summary ---
Author Author [facility] Organization [facility] Address Unknown Phone Unavailable Care Team Providers Care Transportation Dispatch Manager Name Role Phone Carlotta Aguayo MD PCP Unavailable Reason for Visit * Reason Comments Medication Refill Encounter Details Care Team Description Date Type Department Carlotta Aguayo MD NO ADDRESS ON FILE 02/25/2017 Refill [facility] [address] [address] Social History Date Tobacco Use Types Packs/Day Years Used Never Smoker Smokeless Tobacco: Never Used Drinks/Week oz/Week Comments Alcohol Use No Sex Assigned at Date Recorded Not on file documented as of this encounter Plan of Treatment Not on filedocumented as of this encounter Visit Diagnoses Not on filedocumented in this encounter
--- OUTSIDE RECORDS SUMMARY | 2019-08-19 16:02 | XMS REPORT | Encounter Summary ---
Author Author [facility] Organization [facility] Address Unknown Phone Unavailable Care Team Providers Care Coning Machine Operator Name Role Phone Carlotta Aguayo MD PCP Unavailable Reason for Visit * Reason Comments Medication Refill Encounter Details Care Team Description Date Type Department Self, Bradly Ayala MD [address] [place] [address] 02/18/2017 Refill [facility] Primar y Care [place] [address] [place] [address] Social History Date Tobacco Use Types Packs/Day Years Used Never Smoker Smokeless Tobacco: Never Used Drinks/Week oz/Week Comments Alcohol Use No Sex Assigned at Date Recorded Not on file documented as of this encounter Plan of Treatment Not on filedocumented as of this encounter Visit Diagnoses Not on filedocumented in this encounter
--- OUTSIDE RECORDS SUMMARY | 2019-08-19 16:02 | XMS REPORT | Encounter Summary ---
Author Author [facility] Organization [facility] Address Unknown Phone Unavailable Care Team Providers Care Wind Operations Manager Name Role Phone Carlotta Aguayo MD PCP Unavailable Reason for Visit * Reason Comments Medication Refill Encounter Details Care Team Description Date Type Department Tania Fagan MD [address] [place] [address] 04/29/2017 Refill [facility] Primar y Care [address] [address] Social History Date Tobacco Use Types Packs/Day Years Used Never Smoker Smokeless Tobacco: Never Used Drinks/Week oz/Week Comments Alcohol Use No Sex Assigned at Date Recorded Not on file documented as of this encounter Plan of Treatment Not on filedocumented as of this encounter Visit Diagnoses Not on filedocumented in this encounter
--- OUTSIDE RECORDS SUMMARY | 2019-08-19 16:02 | XMS REPORT | Encounter Summary ---
Author Author [facility] Organization [facility] Address Unknown Phone Unavailable Care Team Providers Care Stripe Matcher Name Role Phone Carlotta Aguayo MD PCP Unavailable Reason for Visit * Reason Comments Medication Refill Encounter Details Care Team Description Date Type Department Radha Torres, LEAD MASSAGE THERAPIST [address] [place] [address] 03/18/2017 Refill [facility] Primar y Care [place] [address] [place] [address] Social History Date Tobacco Use Types Packs/Day Years Used Never Smoker Smokeless Tobacco: Never Used Drinks/Week oz/Week Comments Alcohol Use No Sex Assigned at Date Recorded Not on file documented as of this encounter Plan of Treatment Not on filedocumented as of this encounter Visit Diagnoses Not on filedocumented in this encounter
--- OUTSIDE RECORDS SUMMARY | 2019-08-19 16:02 | XMS REPORT | Encounter Summary ---
Author Author [facility] Organization [facility] Address Unknown Phone Unavailable Care Team Providers Care Roving Carrier Name Role Phone Carlotta Aguayo MD PCP Unavailable Reason for Visit * Reason Comments Medication Refill Encounter Details Care Team Description Date Type Department Tania Fagan MD [address] [place] [address] 04/02/[address] [facility] Primar y Care [address] [address] Social History Date Tobacco Use Types Packs/Day Years Used Never Smoker Smokeless Tobacco: Never Used Drinks/Week oz/Week Comments Alcohol Use No Sex Assigned at Date Recorded Not on file documented as of this encounter Plan of Treatment Not on filedocumented as of this encounter Visit Diagnoses Not on filedocumented in this encounter
--- OUTSIDE RECORDS SUMMARY | 2019-08-19 16:02 | XMS REPORT | Encounter Summary ---
Author Author [facility] Organization [facility] Address Unknown Phone Unavailable Care Team Providers Care Lead Man Over All Dies In Pattern Shop Name Role Phone Carlotta Aguayo MD PCP Unavailable Encounter Details Care Team Description Date Type Department Carlotta Aguayo MD NO ADDRESS ON FILE Iron deficiency anemia, unspecified iron deficiency anemia type (Primary Dx); Other hyperlipidemia; Essential hypertension 05/03/2017 Orders Only [facility] Primar y Care [address] [phone] Social History Date Tobacco Use Types Packs/Day Years Used Never Smoker Smokeless Tobacco: Never Used Drinks/Week oz/Week Comments Alcohol Use No Sex Assigned at Date Recorded Not on file documented as of this encounter Plan of Treatment Not on filedocumented as of this encounter Results * CBC WITH DIFFERENTIAL (05/16/2017 7:44 AM SLAB OFF MILL TENDER) WBC 5.2 3.6 - 11.1 K/uL [facility] RBC 4.32 3.78 - 5.21 M/uL [facility] HEMOGLOBIN 12.2 11.1 - 15.5 g/dL [facility] HEMATOCRIT 38.2 34.3 - 46.7 % [facility] MCV 88.4 82.7 - 97.1 fL [facility] MCH 28.2 27.1 - 32.3 pg [facility] MCHC 31.9 31.3 - 34.9 g/dL [facility] RDW 13.5 11.5 - 14.7 % [facility] - [place] RDW-STDEV 43.8 37.2 - 47.6 fL [facility] [place] PLATELETS 250 136 - 352 K/uL [facility] [place] MPV 10.0 8.6 - 11.8 fL [facility] - [place] NEUTROPHILS 54 44 - 74 % [facility] [...] GRANUL[facility]YTES LABORATORY SERVICES - [place] NEUTROPHIL 2.82 1.54 - 7.18 K/uL [facility] [...] K/uL [facility] ABSOLUTE SERVICES - [place] Specimen Blood Performing Organization Address City/State/[facility] Ph one Number [facility] CLIA# [id number] [place] [address] - [place] [address] [place], [place] [address] * LIPID PANEL (05/16/2017 7:44 AM SLAB OFF MILL TENDER) CHOLESTEROL 222 (H) <200 mg/dL [facility] [place] TRIGLYCERIDE 106 <150 mg/dL [facility] [place] HDL 73 (H) 40 - 59 mg/dL [facility] - [place] LDL CALCULATED 128 (H) <100 mg/dL [facility] - [place] NON-HDL 149 (H) <130 mg/dL [facility] CHOLESTEROL LABORATORY SERVICES - [place] Specimen Blood Narrative Performed At TOTAL CHOLESTEROL mg/dL [facility] Desirable <200 SERVICES - [facility] Borderline high 200-239 INDU High >=240 [...] Performing Organization Address City/State/Zipcode Ph one Number [facility] CLIA# [id number] [place] [address] - [place] [address] * COMPREHENSIVE METABOLIC PANEL (05/16/2017 7:44 AM SLAB OFF MILL TENDER) [facility] SODIUM 143 136 - 145 mmol/L [...] [place] BUN 17 8 - 23 mg/dL [facility] [place] CREATININE 1.67 (H) 0.51 - 0.95 mg/dL [facility] Comment: LABORATORY The GFR result is not SERVICES - [facility] clinically significant on [place] patients <18 or >70 years of age. GLUCOSE 112 (H) 70 - 100 mg/dL [facility] [place] TOTAL PROTEIN 7.3 6.6 - 8.7 g/dL [facility] [place] ALBUMIN 4.0 3.5 - 5.2 g/dL [facility] [...] [place] GFR 30 mL/min/1.73 sq meter [facility] Comment: LABORATORY eGFR has not been validated SERVICES - [facility] for use in the elderly (> 70 [place] years of age), women, patients with serious [...] GFR result. GFR, 36 mL/min/1.73 sq meter [facility] - [place] ANION GAP 17 4 - 20 mmol/L [facility] [place] Specimen Blood Performing Organization Address City/State/Zipcode Ph one Number [facility] CLIA# [id number] [place] [address] - [place] [address] [place] [address] documented in this encounter Visit Diagnoses Diagnosis Iron deficiency anemia, unspecified iro n deficiency anemia type Other hyperlipidemia Essential hypertension Unspecified essential hypertension documented in this encounter
--- OUTSIDE RECORDS SUMMARY | 2019-08-19 16:03 | XMS REPORT | Encounter Summary ---
Author Author [facility] Organization [facility] Address Unknown Phone Unavailable Care Team Providers Care Technical Account Representative Name Role Phone Carlotta Aguayo MD PCP Unavailable Reason for Visit * Reason Comments Immunization/Injection Flu shot Encounter Details Care Team Description Date Type Department Selfmax, Nurse Need for prophylactic vaccination and in oculation against influenza (Primary Dx) 02/05/2017 Immunization [facility] Primar y Care [address] [phone] Social History Date Tobacco Use Types Packs/Day Years Used Never Smoker Smokeless Tobacco: Never Used Drinks/Week oz/Week Comments Alcohol Use No Sex Assigned at Date Recorded Not on file documented as of this encounter Plan of Treatment Not on filedocumented as of this encounter Visit Diagnoses Diagnosis Need for prophylactic vaccination and i noculation against influenza documented in this encounter
--- OUTSIDE RECORDS SUMMARY | 2019-08-19 16:03 | XMS REPORT | Encounter Summary ---
Author Author [facility] Organization [facility] Address Unknown Phone Unavailable Care Team Providers Care Safety Net Maker Name Role Phone Carlotta Aguayo MD PCP Unavailable Encounter Details Care Team Description Date Type Department Norbert Carrillo, Gavin Solorzano, DO [address] [place] [address] Anay Thompson, Hog Worker [phone] Scoliosis of lumbar spine, unspecified s coliosis type 01/18/2017 [facility] F ort Encounter [facility] [address] [place] [address] Social History Date Tobacco Use [...] Capsule mouth 2 times daily OMEGA RED. 08/31/2016 03/04/2017 furosemide (LASIX) 20 mg Take 1 Tab by 30 Tablet 5 tablet mouth daily. 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 07/30/2016 01/28/2017 NIFEdipine (PROCARDIA XL) Take 1 Tab by 60 Tablet 5 30 mg Extended Release 24 mouth 2 times hour tablet daily. 07/30/2016 01/28/2017 metoprolol tartrate Take 1 Tab by 60 Tablet 5 (LOPRESSOR) 25 mg tablet mouth 2 times daily. 07/16/2016 01/21/2017 raloxifene (EVISTA) 60 mg Take 1 Tab by 30 Tablet 5 tablet mouth daily. 06/18/2016 06/24/2017 dicyclomine (BENTYL) 20 Take 1 [...] Notes * Therapy Treatment - Anay Thompson, Hog Worker - 01/18/2017 3:12 PM CDT OUT PATIENT THERAPY TREATMENT NOTE 01/18/2017 [id number] Patient Name: Era Viveros : 1940 Visit # 9 Date: 01/18/2017 Charges Time In: 14:05 Time Out: 14:52 Total Time: 47 IN MINUTES: Therapeutic Exercise- 47 Subjective Pt reports she is feeling around 35% better. Reports she is performing some of the housework and is able to stand for a longer time to cook. Pain at onset of treatment: 0/10 sitting Pain at completion of treatment 0/10 sitting Objective Treatment completed per flow sheet - scanned document. Assessment Pain has remained similar Functional status is improved. Plan Continue POC established for goals and signed by physician. Anay Thompson, Hog Worker Contact Information [facility] Services [address] [place] [id number] Electronically signed by Anay Thompson, Hog Worker at 3:17 PM CDT documented in this encounter Plan of Treatment Not on filedocumented as of this encounter Visit Diagnoses Not on filedocumented in this encounter
--- OUTSIDE RECORDS SUMMARY | 2019-08-19 16:03 | XMS REPORT | Encounter Summary ---
Author Author [facility] Organization [facility] Address Unknown Phone Unavailable Care Team Providers Care Group Home Counselor Name Role Phone Carlotta Aguayo MD PCP Unavailable Encounter Details Care Team Description Date Type Department Carlotta Aguayo MD NO ADDRESS ON FILE Iron deficiency anemia, unspecified iron deficiency anemia type (Primary Dx); Other hyperlipidemia; Prediabetes; Essential hypertension 02/15/2017 Orders Only [facility] Primar y Care [place] [address] [place] [address] Social History Date Tobacco Use Types Packs/Day Years Used Never Smoker Smokeless Tobacco: Never Used Drinks/Week oz/Week Comments Alcohol Use No Sex Assigned at Date Recorded Not on file documented as of this encounter Plan of Treatment Not on filedocumented as of this encounter Results * HEMOGLOBIN A1C (02/15/2017 8:05 AM COLLAR BASTER) HEMOGLOBIN A1C 5.7 4.8 - 5.9 % [facility] EST. AVG 117 mg/dL [facility] GLUCOSE, A1C LABORATORY [place] Specimen Blood Performing Organization Address City/State/[place] Ph one Number [facility] CLIA# [id number] [place], [place] [address] - [place] [address] [facility] * CBC WITH DIFFERENTIAL (02/15/2017 8:05 AM COLLAR BASTER) WBC 5.3 3.6 - 11.1 K/uL [facility] RBC 4.30 3.78 - 5.21 M/uL [facility] SERVICES [facility] HEMOGLOBIN 13.2 11.1 - 15.5 g/dL [facility] [place] HEMATOCRIT 40.5 34.3 - 46.7 % [facility] [place] MCV 94.2 82.7 - 97.1 fL [facility] [place] MCH 30.7 27.1 - 32.3 pg [facility] [place] MCHC 32.6 31.3 - 34.9 g/dL [facility] [place] RDW 13.5 11.5 - 14.7 % [facility] [place] RDW-STDEV 46.3 37.2 - 47.6 fL [facility] [place] PLATELETS 249 136 - 352 K/uL [facility] [place] MPV 10.7 8.6 - 11.8 fL [facility] [place] NEUTROPHILS 55 44 - 74 % [facility] [place] LYMPHOCYTES 32 16 - 44 % [facility] [place] MONOCYTES 10 4 - 11 % [facility] [place] EOSINOPHILS 3 0 - 6 % [facility] [place] BASOPHILS 1 0 - 1 % [facility] [place] IMMATURE 0 0 - 1 % [facility] - [place] NEUTROPHIL 2.90 1.54 - 7.18 K/uL [facility]UTE [facility] - [place] LYMPHOCYTE 1.68 0.69 - 3.61 K/uL [facility] [...] Ph one Number [facility] CLIA# [id number] [place] [address] - [place] [address] * LIPID PANEL (02/15/2017 8:05 AM COLLAR BASTER) CHOLESTEROL 229 (H) <200 mg/dL [facility] [place] TRIGLYCERIDE 121 <150 mg/dL [facility] [place] HDL 60 (H) 40 - 59 mg/dL [facility] [place] LDL CALCULATED 145 (H) <100 mg/dL [facility] - [facility] INDU NON-HDL 169 (H) <130 mg/dL [facility] CHOLESTEROL LABORATORY SERVICES - [place] Specimen Blood Narrative Performed At TOTAL CHOLESTEROL mg/dL [facility] Desirable <200 SERVICES - [facility] Borderline high 200-239 NIDU High >=240 TRIGLYCERIDES mg/dL Normal <150 Borderline [...] for Lipid Panels (NCEP/AMA) Performing Organization Address City/State/[facility] Ph one Number [facility] CLIA# [id number] [place] [address] - [place] [address] * COMPREHENSIVE METABOLIC PANEL (02/15/2017 8:05 AM COLLAR BASTER) SODIUM 143 136 - 145 mmol/L [facility] [place] POTASSIUM 4.1 3.5 - 5.1 mmol/L [facility] [place] CHLORIDE 106 98 - 107 mmol/L [facility] - [place] CO2 22 22 - 29 mmol/L [facility] - [place] CALCIUM 8.8 8.8 - 10.2 mg/dL [facility] - [place] BUN 17 8 - 23 mg/dL [facility] - [place] CREATININE 1.54 (H) 0.51 - 0.95 mg/dL [facility] Comment: LABORATORY The GFR result is not SERVICES - [facility] clinically significant on [place] patients <18 or >70 years of age. GLUCOSE 109 (H) 70 - 100 mg/dL [facility] - [place] TOTAL PROTEIN 7.3 6.6 - 8.7 g/dL [facility] - [place] ALBUMIN 3.9 3.5 - 5.2 g/dL [facility] - [place] BILIRUBIN TOTAL 0.3 <=1.2 mg/dL [facility] - [place] ALKALINE 84 35 - 104 U/L [facility] PHOSPHATASE LABORATORY SERVICES - [place] AST 29 <=33 U/L [facility] [place] ALT 29 10 - 35 U/L [facility] - [place] GFR 33 mL/min/1.73 sq meter [facility] Comment: LABORATORY eGFR has not been validated [facility] for use in the elderly (> [...] GFR result. GFR, 40 mL/min/1.73 sq meter [facility]ATORY SERVICES - [place] ANION GAP 15 4 - 20 mmol/L [facility] [place] Specimen Blood Performing Organization Address City/State/Zipcode Ph one Number [facility] CLIA# [id number] [place] [address] - [place] [address] [facility] [place] documented in this encounter Visit Diagnoses Diagnosis Iron deficiency anemia, unspecified iro n deficiency anemia type Other hyperlipidemia Prediabetes Other abnormal glucose Essential hypertension Unspecified essential hypertension documented in this encounter
--- OUTSIDE RECORDS SUMMARY | 2019-08-19 16:03 | XMS REPORT | Encounter Summary ---
Author Author [facility] Organization [facility] Address Unknown Phone Unavailable Care Team Providers Care Bread Wrapper Name Role Phone Carlotta Aguayo MD PCP Unavailable Encounter Details Care Team Description Date Type Department Norbert Carrillo, Gavin Solorzano, DO [address] [place] [address] [place] [phone] Bolivar Boyer, Physical Therapist Scoliosis of lumbar spine, unspecified scoliosis type 01/31/2017 [facility] F ort Encounter [facility] [address] [place] [address] Social History Date Tobacco Use [...] Capsule mouth 2 times daily OMEGA RED. 01/28/2017 03/04/2017 metoprolol tartrate Take 1 Tab by 60 Tablet 0 (LOPRESSOR) 25 mg tablet mouth 2 times daily. 01/28/2017 03/04/2017 NIFEdipine (PROCARDIA XL) Take 1 Tab by 60 Tablet 0 30 mg Extended Release 24 mouth 2 times hour tablet daily. 01/21/2017 02/18/2017 raloxifene (EVISTA) 60 mg Take 1 Tab by 30 Tablet 0 tablet mouth daily. 08/31/2016 03/04/2017 furosemide (LASIX) 20 mg [...] Treatment - Bolivar Boyer, Physical Therapist - 01/31/2017 4:10 PM CDT OUT PATIENT THERAPY TREATMENT NOTE 01/31/2017 [id number] Patient Name: Era Viveros : 1940 Visit # 13 Date: 01/31/2017 Charges Time In: 1501 Time Out: 1553 Total Time: 52 minutes IN MINUTES: Therapeutic Exercise- 40 minutes Subjective The patient reports she is feeling better and able to walk much further without pain. She reports that she is now walking faster and further than her , which she previously did not do. Pain at onset of treatment: 0/10 Pain at completion of treatment 0/10 Objective Treatment completed per flow sheet - scanned document. Assessment Pain has decreased Patient is completing HEP as recommended Functional status is improved. Progressing per established protocol Plan Continue POC established for goals and signed by physician. Bolivar Boyer, Physical Therapist Contact Information [facility] Services [address] [place] [address] documented in this encounter Plan of Treatment Not on filedocumented as of this encounter Visit Diagnoses Not on filedocumented in this encounter
--- OUTSIDE RECORDS SUMMARY | 2019-08-19 16:03 | XMS REPORT | Encounter Summary ---
Author Author [facility] Organization [facility] Address Unknown Phone Unavailable Care Team Providers Care Staple Side Laster Name Role Phone Carlotta Aguayo MD PCP Unavailable Reason for Visit * Reason Comments Medication Refill Encounter Details Care Team Description Date Type Department Carlotta Aguayo MD NO ADDRESS ON FILE 01/21/2017 Refill [facility] [address] [address] Social History Date Tobacco Use Types Packs/Day Years Used Never Smoker Smokeless Tobacco: Never Used Drinks/Week oz/Week Comments Alcohol Use No Sex Assigned at Date Recorded Not on file documented as of this encounter Plan of Treatment Not on filedocumented as of this encounter Visit Diagnoses Not on filedocumented in this encounter
--- OUTSIDE RECORDS SUMMARY | 2019-08-19 16:03 | XMS REPORT | Encounter Summary ---
Author Author [facility] Organization [facility] Address Unknown Phone Unavailable Care Team Providers Care System Admin Name Role Phone Carlotta Aguayo MD PCP Unavailable Encounter Details Care Team Description Date Type Department Self, Bradly Ayala MD [address] [place] [address] [facility], Outpt Lab 02/15/2017 [facility] Outpatient Encounter Laboratory [address] [address] Social History Date Tobacco Use [...] Date/Time Associated Diag nosis CBC WITH DIFFERENTIAL Routine 02/15/2017 Iron def iciency anemia, 8:05 AM TRAM DRIVER unspecified iron deficiency anemia type HEMOGLOBIN A1C Routine 02/15/2017 Prediabetes 8:05 AM TRAM DRIVER LIPID PANEL Routine 02/15/2017 Other hyperlipi demia 8:05 AM TRAM DRIVER Essential hypertension COMPREHENSIVE METABOLIC Routine 02/15/2017 Other hyperlipidemia PANEL 8:05 AM TRAM DRIVER Essential hypertens ion documented in this encounter Results * HEMOGLOBIN A1C (02/15/2017 8:05 AM TRAM DRIVER) HEMOGLOBIN A1C 5.7 4.8 - 5.9 % [facility] [place] EST. AVG 117 mg/dL [facility] GLUCOSE, A1C LAB[facility]ATORY [facility] [place] Specimen Blood Performing Organization Address City/State/[facility] Ph one Number [facility] CLIA# [id number] [place], [place] [address] - [place] [address] [place] [address] * CBC WITH DIFFERENTIAL (02/15/2017 8:05 AM TRAM DRIVER) WBC 5.3 3.6 - 11.1 K/uL [facility] [place] RBC 4.30 3.78 - 5.21 M/uL [facility] [place] HEMOGLOBIN 13.2 11.1 - 15.5 g/dL [facility] [...] ABSOLUTE [facility] [place] BASOPHILS 0.04 0.00 - 0.10 K/uL [facility] [place] IMMATURE 0.02 0.00 - 0.09 K/uL [facility] ABSOLUTE [facility] [place] Specimen Blood Performing Organization Address City/State/Zipcode Ph one Number [facility] CLIA# [id number] [place], [place] [address] [place] [address] [place] [address] * LIPID PANEL (02/15/2017 8:05 AM TRAM DRIVER) CHOLESTEROL 229 (H) <200 mg/dL [facility] [place] TRIGLYCERIDE 121 <150 mg/dL [facility] [place] HDL 60 (H) 40 - 59 mg/dL [facility] [place] LDL CALCULATED 145 (H) <100 mg/dL [facility] [place] NON-HDL 169 (H) <130 mg/dL [facility] CHOLESTEROL [facility] [place] Specimen Blood Narrative Performed At TOTAL CHOLESTEROL mg/dL [facility] LABOR[facility] Desirable <200 SERVICES - [facility] Borderline high 200-239 INDU High [...] Performing Organization Address City/State/Zipcode Ph one Number [facility] CLIA# [id number] [place] [address] [place] [address] [place] [address] * COMPREHENSIVE METABOLIC PANEL (02/15/2017 8:05 AM TRAM DRIVER) SODIUM 143 136 - 145 mmol/L [facility] [place] POTASSIUM 4.1 3.5 - 5.1 mmol/L [facility] [place] CHLORIDE 106 98 - 107 mmol/L [facility] - [facility] IN[facility] CO2 22 22 - 29 mmol/L [facility] - [facility] INDU CALCIUM 8.8 8.8 - 10.2 mg/dL [facility] - [facility] INDU BUN 17 8 - 23 mg/dL [facility] [place] CREATININE 1.54 (H) 0.51 - 0.95 mg/dL [facility] Comment: LABORATORY The GFR result is not SERVICES - [facility] clinically significant on [place] patients <18 or >70 years of age. GLUCOSE 109 (H) 70 - 100 mg/dL [facility] SERVICES - [facility] INDU TOTAL PROTEIN 7.3 6.6 - 8.7 g/dL [facility] [place] ALBUMIN 3.9 3.5 - 5.2 g/dL [facility] [place] BILIRUBIN TOTAL 0.3 <=1.2 mg/dL [facility] [place] ALKALINE 84 35 - 104 U/L [facility] PHOSPHATASE [facility] [place] AST 29 <=33 U/L [facility] [place] ALT 29 10 - 35 U/L [facility] [place] GFR 33 mL/min/1.73 sq meter [facility] Comment: LABORATORY eGFR has not been validated [facility] for use in the elderly (> [...] GFR result. GFR, 40 mL/min/1.73 sq meter [facility] [place] ANION GAP 15 4 - 20 mmol/L [facility] [place] Specimen Blood Performing Organization Address City/State/Zipcode Ph one Number [facility] CLIA# [id number] KRISTA LAUREN [address] - [place] [address] [place] [address] documented in this encounter Visit Diagnoses Diagnosis Other hyperlipidemia Essential hypertension Unspecified essential hypertension Iron deficiency anemia, unspecified iro n deficiency anemia type Prediabetes Other abnormal glucose documented in this encounter
--- OUTSIDE RECORDS SUMMARY | 2019-08-19 16:03 | XMS REPORT | Encounter Summary ---
Author Author [facility] Organization [facility] Address Unknown Phone Unavailable Care Team Providers Care Slps Name Role Phone Carlotta Aguayo MD PCP Unavailable Encounter Details Care Team Description Date Type Department Norbert Carrillo, Gavin Solorzano, DO [address] [place] [address] Anitha Mo, Bottom Cementer [phone] Scoliosis of lumbar spine, unspecified s coliosis type 02/12/2017 [facility] F ort Encounter [facility] [address] [place] [address] Social History Date Tobacco Use [...] encounter Miscellaneous Notes * Therapy Treatment - Anitha Mo, Bottom Cementer - 02/12/2017 4:23 PM EXPANDED FUNCTION DENTAL ASSISTANT OUT PATIENT THERAPY 3RD VISIT UPDATE [id number] Patient Name: Era Viveros : 1940 Visit # 15/ 16 Charges Time In: 1545 Time Out: 1645 Total Time: 60 IN MINUTES: Therapeutic Exercise- 45, Hot Pack 15 No charge Subjective Patient states this damp weather just erin make her hurt all over. Pain at onset of treatment: 0/10 Pain at completion of treatment 04/10 Objective Treatment completed per flow sheet - scanned document. Assessment Pain has decreased, Patient is completing HEP as recommended, Functional status is improved., Progressing per established protocol Ongoing Screening of Patient: The patient has not been hospitalized recently The patient has not had any changes to medications The patient has not experienced any changes in allergies Plan Continue POC established for goals and signed by physician. Anitha Mo, Bottom Cementer Contact Information [facility] [address] [place] [address] Electronically signed by Anitha Mo, Bottom Cementer at 02/12 4:25 PM EXPANDED FUNCTION DENTAL ASSISTANT documented in this encounter Plan of Treatment Not on filedocumented as of this encounter Visit Diagnoses Not on filedocumented in this encounter
--- OUTSIDE RECORDS SUMMARY | 2019-08-19 16:03 | XMS REPORT | Encounter Summary ---
Author Author [facility] Organization [facility] Address Unknown Phone Unavailable Care Team Providers Care Scraper Operator Name Role Phone Carlotta Aguayo MD PCP Unavailable Encounter Details Care Team Description Date Type Department Norbert Carrillo, Gavin Solorzano, DO [address] [place] [address] Anay Thompson, Bell Cleaner [phone] Scoliosis of lumbar spine, unspecified s coliosis type 01/29/2017 [facility] F ort Encounter [facility] [address] [place] [address] Social History Date Tobacco Use [...] Notes * Therapy Treatment - Anay Thompson, Bell Cleaner - 01/29/2017 4:05 PM CDT OUT PATIENT THERAPY 3RD VISIT UPDATE [id number] Patient Name: Era Viveros : 1940 Visit # 12 Charges Time In:15:05 Time Out: 15:50 Total Time: 45 IN MINUTES: Therapeutic Exercise- 37 Subjective Pt reports she is performing the HEP. Pt reports "I think I'm walking better i n Adrian". Pain at onset of treatment: 0/10 Pain [...] for goals and signed by physician. Anay S Thompson, Bell Cleaner Contact Information [facility] [address] [place] [address] Jose De Jesus Hebert [id number] Electronically signed by Anay Thompson, Bell Cleaner at 4:08 PM CDT documented in this encounter Plan of Treatment Not on filedocumented as of this encounter Visit Diagnoses Not on filedocumented in this encounter
--- OUTSIDE RECORDS SUMMARY | 2019-08-19 16:03 | XMS REPORT | Encounter Summary ---
Author Author [facility] Organization [facility] Address Unknown Phone Unavailable Care Team Providers Care Route Sales Delivery Driver Name Role Phone Carlotta Aguayo MD PCP Unavailable Encounter Details Care Team Description Date Type Department Norbert Jr., Gavin Solorzano, DO [address] [place] [address] Anay Thompson, Hand Tool Lapper [phone] Scoliosis of lumbar spine, unspecified s coliosis type 01/24/2017 [facility] F ort Encounter [facility] [address] [place] [address] Social History Date Tobacco Use [...] Capsule mouth 2 times daily OMEGA RED. 01/21/2017 02/18/2017 raloxifene (EVISTA) 60 mg Take [...] 25 mg tablet mouth 2 times daily. 06/18/2016 06/24/2017 dicyclomine (BENTYL) 20 Take [...] Notes * Therapy Treatment - Anay Thompson, Hand Tool Lapper - 01/24/2017 3:55 PM CDT OUT PATIENT THERAPY TREATMENT NOTE 01/24/2017 [id number] Patient Name: Era Viveros : 1940 Visit # 11 Date: 01/24/2017 Charges Time In: 15:00 Time Out: 15:45 Total Time: 45 IN MINUTES: Therapeutic Exercise- 40, Subjective Pt reports "I'm worn out today". Pt reports she is performing the HEP some of t he time. Pain at onset of treatment: 1/10 Pain at completion of treatment 0/10 Objective Treatment completed per flow sheet - scanned document. Assessment Pain has remained similar Plan Continue POC established for goals and signed by physician. Anay Thompson Hand Tool Lapper Contact Information [facility] [address] [place] [address] Electronically signed by Anay Thompson, Hand Tool Lapper at 3:58 PM CDT documented in this encounter Plan of Treatment Not on filedocumented as of this encounter Visit Diagnoses Not on filedocumented in this encounter
--- OUTSIDE RECORDS SUMMARY | 2019-08-19 16:03 | XMS REPORT | Encounter Summary ---
Author Author [facility] Organization [facility] Address Unknown Phone Unavailable Care Team Providers Care Media Director Name Role Phone Carlotta Aguayo MD PCP Unavailable Encounter Details Care Team Description Date Type Department Norbert Carrillo, Gavin Solorzano, DO [address] [place] [address] Anitha Mo, Rural Service Engineer [phone] Scoliosis of lumbar spine, unspecified s coliosis type 01/10/2017 [facility] F ort Encounter [facility] [address] [place] [address] Social History Date Tobacco Use [...] Notes * Therapy Treatment - Anitha Mo, Rural Service Engineer - 01/10/2017 3:54 PM CDT OUT PATIENT THERAPY TREATMENT NOTE 01/10/2017 [id number] Patient Name: Era Viveros : 1940 Visit # 7 Date: 01/10/2017 Charges Time In: 1500 Time Out: 1540 Total Time: 40 IN MINUTES: Therapeutic Exercise- 30, Manual Therapy - 30 Subjective Patient states her leg pain is better since she started taking the Gabapentin, h owever her back pain is still an issue. Her pain was a 6/10 this morning. Pain at onset of treatment: 2/10 Pain at completion of treatment 0/10 Objective Treatment completed per flow sheet - scanned document. Assessment Pain has decreased Patient is completing HEP as recommended Progressing per established protocol Plan Continue POC established for goals and signed by physician. Anitha Mo, Rural Service Engineer Contact Information [facility] [address] [place] [address] Electronically signed by Anitha Mo, Rural Service Engineer at 01/10 4:02 PM CDT documented in this encounter Plan of Treatment Not on filedocumented as of this encounter Visit Diagnoses Not on filedocumented in this encounter
--- OUTSIDE RECORDS SUMMARY | 2019-08-19 16:03 | XMS REPORT | Encounter Summary ---
Author Author [facility] Organization [facility] Address Unknown Phone Unavailable Care Team Providers Care Varnish Blender Name Role Phone Carlotta Aguayo MD PCP Unavailable Encounter Details Care Team Description Date Type Department Norbert Carrillo, Gavin Solorzano, DO [address] [place] [address] Bolivar Boyer, Physical Therapist Scoliosis of lumbar spine, unspecified scoliosis type 02/14/[address] [facility] F ort Encounter [facility] [address] [place] [address] Social History Date Tobacco Use [...] Treatment - Bolivar Boyer, Physical Therapist - 02/14/2017 4:05 PM INTERVENTIONAL PHYSIATRIST OUT PATIENT THERAPY TREATMENT NOTE 02/14/2017 [id number] Patient Name: Era Viveros : 1940 Visit # 16 Date: 02/14/2017 Charges Time In: 1458 Time Out: 1551 Total Time: 53 minutes IN MINUTES: Therapeutic Exercise- 45 minutes Subjective The patient reports worst pain in last week was 3/10 which occurs first thing i n the morning and disappears after warming up. She denies any increase in pain w ith walking now. Pain at onset of treatment: 0/10 Pain at completion of treatment 0/10 Objective Treatment completed per flow sheet - scanned document. Assessment Pain has decreased Functional status is improved. Progressing per established protocol Plan Continue POC established for goals and signed by physician. Bolivar Boyer, Physical Therapist Contact Information [facility] [address] [place] [address] RVENTIONAL PHYSIATRIST documented in this encounter Plan of Treatment Not on filedocumented as of this encounter Visit Diagnoses Not on filedocumented in this encounter
--- OUTSIDE RECORDS SUMMARY | 2019-08-19 16:03 | XMS REPORT | Encounter Summary ---
Author Author [facility] Organization [facility] Address Unknown Phone Unavailable Care Team Providers Care Business Applications Developer Name Role Phone Carlotta Aguayo MD PCP Unavailable Encounter Details Care Team Description Date Type Department Norbert Carrillo, Gavin Solorzano, DO [address] [place] [address] Anay Thompson, Invasive Physician [phone] Scoliosis of lumbar spine, unspecified s coliosis type 01/15/2017 [facility] F ort Encounter [facility] [address] [place] [address] Social History Date Tobacco Use [...] Notes * Therapy Treatment - Anay Thompson, Invasive Physician - 01/15/2017 4:01 PM CDT OUT PATIENT THERAPY 3RD VISIT UPDATE [id number] Patient Name: Era Viveros : 1940 Visit # 8 Charges Time In: 15:00 Time Out: 15:50 Total Time: 50 IN MINUTES: Therapeutic Exercise- 45 Subjective Pt rates pain level as 3-4/10 worst and 0/10 best for the past 24 hours. Pt rep orts she is able to walk in [place] for at least 10 min using a shopping cart w ith pain increasing to 3-4/10. Pt reports pain is worst first thing in the morn ings. Pt reports having no leg pain. Pain at onset of treatment: 0-1/10 sitting Pain at completion of treatment 0/10 sitting Objective Treatment completed per flow sheet - scanned document.Pt is riding the [employer] a nd performing back stabilization and stretching exercises. Pt was instructed in performing proper posture and body mechanics. Assessment Pain has decreased since initial eval as pain was 7/10 worst. Patient is complet ing HEP as recommended, Functional status is improved., Patient verbalizes incre ase ease of completing treatment. Ongoing Screening of Patient: The patient has not been hospitalized recently The patient has not had any changes to medications The patient has not experienced any changes in allergies GOALS AND PLAN Short Term Goals to be completed in 2 weeks 1. Tolerate ambulation 10 minutes without increased symptoms above baseline. imp roving 2. The patient will be able will verbalize understanding of correct posture and the correct mechanics of lifting.Met 3. The patient will rate pain as 5/10 Met 4. The patient will demonstrate improved tolerance of standing without increased symptoms beyond baseline.Not Met Title Clerk Automobile Goals to be completed in 6 weeks 1. The patient will be mod (I) with HEP Met 2. The patient will be able to demonstrate safe and proper body mechanics for li fting and other functional tasks. Not Met 3. The patient will rate pain as 2/10 at worst within last 24 hours. Not Met 4. The patient will be able to perform ADL's, recreational activities without i ncreased back or LE complaints.Not Met 5. The patient will be able to tolerate 20 minutes of standing/ambulation witho ut an increase in pain level.Not Met Plan Continue POC established for goals and signed by physician. Anay Thompson, Invasive Physician Contact Information [facility] [address] [place] [phone] Electronically signed by Anay Thompson, Invasive Physician at 4:19 PM CDT documented in this encounter Plan of Treatment Not on filedocumented as of this encounter Visit Diagnoses Not on filedocumented in this encounter
--- OUTSIDE RECORDS SUMMARY | 2019-08-19 16:03 | XMS REPORT | Encounter Summary ---
Author Author [facility] Organization [facility] Address Unknown Phone Unavailable Care Team Providers Care Laboratory Coordinator Name Role Phone Carlotta Aguayo MD PCP Unavailable Reason for Visit * Reason Comments Medication Refill Encounter Details Care Team Description Date Type Department Carlotta Aguayo MD NO ADDRESS ON FILE 01/28/2017 Refill [facility] [address] [address] Social History Date Tobacco Use Types Packs/Day Years Used Never Smoker Smokeless Tobacco: Never Used Drinks/Week oz/Week Comments Alcohol Use No Sex Assigned at Date Recorded Not on file documented as of this encounter Plan of Treatment Not on filedocumented as of this encounter Visit Diagnoses Not on filedocumented in this encounter
--- OUTSIDE RECORDS SUMMARY | 2019-08-19 16:03 | XMS REPORT | Encounter Summary ---
Author Author [facility] Organization [facility] Address Unknown Phone Unavailable Care Team Providers Care Deputy [place] Marshal Name Role Phone Carlotta Aguayo MD PCP Unavailable Encounter Details Care Team Description Date Type Department Norbert Carrillo, Gavin Solorzano, DO [address] [place] [address] Anay Thompson, Gymnastics Coach [phone] Scoliosis of lumbar spine, unspecified s coliosis type 01/08/2017 [facility] F ort Encounter [facility] [address] [place] [address] Social History Date Tobacco Use [...] Notes * Therapy Treatment - Anay Thompson, Gymnastics Coach - 01/08/2017 3:50 PM CDT OUT PATIENT THERAPY 3RD VISIT UPDATE [id number] Patient Name: Era Viveros : 1940 Visit # 8 Charges Time In: 15:05 Time Out: 15:45 Total Time: 40 IN MINUTES: Therapeutic Exercise- 40 Subjective Pt reports she is only performing her exercises part of the time. Pt reports s he mopped the bathroom floor on her hands and knees. Pt reports "I'm not with i t today". Pt reports taking 1/2 of a pain pill two times today. Pain at onset of treatment: 4/10 Pain at completion of treatment 3/10 Objective Treatment completed per flow sheet - scanned document. Assessment Pain has decreased after this treatment. Ongoing Screening of Patient: The patient has not been hospitalized recently The patient has not had any changes to medications The patient has not experienced any changes in allergies Plan Continue POC established for goals and signed by physician. Anay Thompson, Gymnastics Coach Contact Information [facility] [address] [place] [address] Jose De Jesus Hebert [address] Electronically signed by Anay Thompson, Gymnastics Coach at 4:02 PM CDT documented in this encounter Plan of Treatment Not on filedocumented as of this encounter Visit Diagnoses Not on filedocumented in this encounter
--- OUTSIDE RECORDS SUMMARY | 2019-08-19 16:03 | XMS REPORT | Encounter Summary ---
Author Author [facility] Organization [facility] Address Unknown Phone Unavailable Care Team Providers Care Short Piece Handler Name Role Phone Carlotta Aguayo MD PCP Unavailable Encounter Details Care Team Description Date Type Department Norbert Carrillo, Gavin Solorzano, DO [address] [place] [address] Bolivar Boyer, Physical Therapist Scoliosis of lumbar spine, unspecified scoliosis type 01/22/2017 [facility] F ort Encounter [facility] [address] [place] [address] Social History Date Tobacco Use [...] Treatment - Bolivar Boyer, Physical Therapist - 01/22/2017 4:09 PM CDT OUT PATIENT THERAPY TREATMENT NOTE 01/22/2017 [id number] Patient Name: Era Viveros : 1940 Visit # 10 Date: 01/22/2017 Charges Time In: 1501 Time Out: 1558 Total Time: 57 minutes IN MINUTES: Therapeutic Exercise- 30, Therapeutic Activity - 15 Subjective The patient expressed that she is fearful of surgery and is motivated to avoid surgery by making improvements with PT. Pain at onset of treatment: 0/10 Pain at completion of treatment 0/10 Objective Treatment completed per flow sheet - scanned document. Assessment Pain has decreased Functional status is improved. Progressing per established protocol G-Codes and Intensity Modifiers Modifiers Current Status G8990 - Other PT/OT current status: Other physical or occupationa l primary functional limitation, current status, at therapy episode outset and a t reporting intervals CJ: At least 20% but less than 40% impaired, limited, or r estricted Goal Status G8991 - Other PT/OT goal status: Other physical or occupational prim leatha functional limitation, projected goal status, at therapy episode outset, at reporting intervals, and at discharge or to end reporting CJ: At least 20% but l ess than 40% impaired, limited, or restricted Intensity modifier determined by: Oswestry (improved 10% from initial evaluation ) Plan Continue POC established for goals and signed by physician. Bolivar Boyer, Physical Therapist Contact Information [facility] [address] [place] [address] documented in this encounter Plan of Treatment Not on filedocumented as of this encounter Visit Diagnoses Not on filedocumented in this encounter
--- OUTSIDE RECORDS SUMMARY | 2019-08-19 16:03 | XMS REPORT | Encounter Summary ---
Author Author [facility] Organization [facility] Address Unknown Phone Unavailable Care Team Providers Care Police [employer] Program Coordinator Name Role Phone Carlotta Aguayo MD PCP Unavailable Encounter Details Care Team Description Date Type Department Norbert Carrillo, Gavin Solorzano, DO [address] [place] [address] [place] [phone] Bolivar Boyer, Physical Therapist Scoliosis of lumbar spine, unspecified scoliosis type 01/03/2017 [facility] Encounter [facility] [address] [place] [address] Social History Date Tobacco Use [...] Treatment - Bolivar Boyer, Physical Therapist - 01/03/2017 4:10 PM CDT OUT PATIENT THERAPY TREATMENT NOTE 01/03/2017 [id number] Patient Name: Era Viveros : 1940 Visit # 7 Date: 01/03/2017 Charges Time In: 1500 Time Out: 1600 Total Time: 60 minutes IN MINUTES: Therapeutic Exercise- 45 minutes Subjective The patient reports improving pain levels, but has some delayed onset muscle so reness from exercises. Pain at onset of treatment: 05/11 Pain at completion of treatment 04/10 Objective Treatment completed per flow sheet - scanned document. Assessment Pain has decreased Progressing per established protocol Plan Continue POC established for goals and signed by physician. Bolivar Boyer, Physical Therapist Contact Information [facility] Services [address] [place] [id number] documented in this encounter Plan of Treatment Not on filedocumented as of this encounter Visit Diagnoses Not on filedocumented in this encounter
--- OUTSIDE RECORDS SUMMARY | 2019-08-19 16:03 | XMS REPORT | Encounter Summary ---
Author Author [facility] Organization [facility] Address Unknown Phone Unavailable Care Team Providers Care Tar Heat Exchanger Cleaner Name Role Phone Carlotta Aguayo MD PCP Unavailable Encounter Details Care Team Description Date Type Department Norbert Carrillo, Gavin Solorzano, DO [address] [place] [address] Anay Thompson, Panel Sewer [phone] Scoliosis of lumbar spine, unspecified s coliosis type 02/05/2017 [facility] F ort Encounter [facility] [address] [place] [address] Social History Date Tobacco Use [...] Notes * Therapy Treatment - Anay Thompson, Panel Sewer - 02/05/2017 4:21 PM CABINET FINISHER OUT PATIENT THERAPY TREATMENT NOTE 02/05/2017 [id number] Patient Name: Era Viveros : 1940 Visit # 14 Date: 02/05/2017 Charges Time In: 15:05 Time Out:15:55 Total Time: 50 IN MINUTES: Therapeutic Exercise- 45 Subjective Pt report "I'm stronger than when I first started". Pain at onset of treatment: 0/10 Pain at completion of treatment 0/10 Objective Treatment completed per flow sheet - scanned document. Assessment Pain has remained similar Patient is completing HEP as recommended Plan Continue POC established for goals and signed by physician. Anay Thompson Panel Sewer Contact Information [facility] Services [address] [place] [address] Electronically signed by Anay Thompson, Panel Sewer at 4:25 PM CABINET FINISHER documented in this encounter Plan of Treatment Not on filedocumented as of this encounter Visit Diagnoses Not on filedocumented in this encounter
--- OUTSIDE RECORDS SUMMARY | 2019-08-19 16:04 | XMS REPORT | Encounter Summary ---
Author Author [facility] Organization [facility] Address Unknown Phone Unavailable Care Team Providers Care Morning News Producer Name Role Phone Carlotta Aguayo MD PCP Unavailable Reason for Visit * Reason Comments Annual Wellness Visit (Medicare) Follow Up 3 mos Results lab Back Pain requesting shot Leg Pain Medication Refill hydrocodone Encounter Details Care Team Description Date Type Department Carlotta Aguayo MD NO ADDRESS ON FILE Essential hypertension (Primary Dx); Prediabetes; Nocturnal dyspnea; Familial hypercholesterolemia; Primary osteoarthritis involving multiple joints 08/30/2016 Office Visit [address] [address] Social History Date Tobacco Use Types Packs/Day Years Used Never Smoker Smokeless Tobacco: Never Used Drinks/Week oz/Week Comments Alcohol Use No Sex Assigned at Date Recorded Not on file documented as of this encounter Last Filed Vital Signs Reading Time Taken Comments Vital Sign 130/80 08/30/2016 9:33 AM CDT Blood Pressure - - Pulse - - Temperature - - Respiratory Rate - - Oxygen Saturation - - Inhaled Oxygen Concentration 72.1 kg (159 lb) 08/30/2016 9:33 AM CDT Weight 149.9 cm (4' 11") 08/30/2016 9:33 AM CDT Height 32.11 08/30/2016 9:33 AM CDT Body Mass Index documented in this encounter Progress Notes * Goyo Aguayo MD - 09/23/2016 9:56 PM CDT HISTORY OF PRESENT ILLNESS Era Viveros, a 75 y.o. female presents with a Chief Complaint of Annual Wel lness Visit (Medicare); Follow Up (3 mos); Results (lab); Back Pain (requesting shot); Leg Pain; and Medication Refill (hydrocodone) Subjective HPI here with feeling well. Stable hypertension and prediabetes. Known DA. REVIEW OF SYSTEMS Review of Systems Constitutional: Negative for fever, activity change, appetite change, fatigue an d unexpected weight change. HENT: Negative for congestion. Respiratory: Negative for cough and shortness of breath. Cardiovascular: Negative for chest pain. Gastrointestinal: Negative for abdominal pain. Genitourinary: Negative for menstrual problem. Musculoskeletal: Positive for back pain and arthralgias. Negative for neck stiff ness. Neurological: Negative for weakness. Psychiatric/Behavioral: The patient is nervous/anxious. Objective PHYSICAL EXAM BP 130/80 | Ht 4' 11" (1.499 m) | Wt 72.1 kg (159 lb) | BMI 32.11 kg/m2 Physical Exam Constitutional: She is oriented to [...] Normal range of motion. She exhibits tenderness (low back ). Neurological: She is alert and oriented to person, place, and time. Skin: Skin is warm and dry. Nursing note and vitals reviewed. Lab Results Component Value Date/Time WBC 6.1 03/16/2016 09:20 AM HGB 13.2 03/16/2016 09:20 AM HCT 41.0 03/16/2016 09:20 AM PLT 174 03/16/2016 09:20 AM MCV 100.8 03/16/2016 09:20 AM Lab Results Component Value Date/Time NA 142 08/30/2016 08:17 AM K 3.9 08/30/2016 08:17 AM CL 103 08/30/2016 08:17 AM CO2 22 08/30/2016 08:17 AM CA 8.9 08/30/2016 08:17 AM BUN 18 08/30/2016 08:17 AM CREAT 1.66 (H) 08/30/2016 08:17 AM GLUCOSE 118 (H) 08/30/2016 08:17 AM TOTALPROTEIN 7.2 08/30/2016 08:17 AM ALBUMIN 4.0 08/30/2016 08:17 AM BILITOTAL 0.2 08/30/2016 08:17 AM ALKPHOS 82 08/30/2016 08:17 AM AST 44 (H) 08/30/2016 08:17 AM ALT 46 (H) 08/30/2016 08:17 AM ANIONGAP 17 08/30/2016 08:17 AM BCRATIO 13.5 03/06/2012 07:50 AM Lab Results Component Value Date/Time HGBA1C 5.5 08/30/2016 08:17 AM Results for orders placed or performed during the hospital encounter of 03/16/16 XR CHEST PA AND LATERAL Narrative PA and LATERAL Chest Radiographs 03/16/2016 9:25 AM HISTORY: 75 years Female presents with cough COMPARISON: May 12, 2015 FINDINGS: The lungs are clear. There is no pleural effusion or pneumothorax. The heart, pulmonary vasculature, and mediastinum are normal. There is no free air under the diaphragm. There is a moderate-sized hiatal hernia. Impression IMPRESSION: No focal consolidation Assessment ASSESSMENT and PLAN: ICD-10-CM ICD-9-CM 1. Essential hypertension I10 401.9 COMPREHENSIVE METABOLIC PANEL 2. Prediabetes R73.03 790.29 HEMOGLOBIN A1C 3. Nocturnal dyspnea R06.00 786.02 4. Familial hypercholesterolemia E78.01 272.0 LIPID PANEL 5. Primary osteoarthritis involving multiple joints M15.0 715.09 dexamethasone ( DECADRON) injection 4 mg methylPREDNISolone acetate (DEPO-Medrol) injection 80 mg HYDROcodone-acetaminophen (NORCO) 5-325 mg tablet Current Outpatient Prescriptions: HYDROcodone-acetaminophen (NORCO) 5-325 mg tablet, Take 1 Tablet by mouth e very 4 hours as needed for Pain, Moderate., Disp: 120 Tablet, Rfl: 0 NIFEdipine (PROCARDIA XL) 30 mg Extended Release 24 hour tablet, Take 1 Tab by mouth 2 times daily., Disp: 60 Tablet, Rfl: 5 metoprolol tartrate (LOPRESSOR) 25 mg tablet, Take 1 Tab by mouth 2 times d aily., Disp: 60 Tablet, Rfl: 5 raloxifene (EVISTA) 60 mg tablet, Take 1 Tab by mouth daily., Disp: 30 Tabl et, Rfl: 5 dicyclomine (BENTYL) 20 mg tablet, Take 1 Tab by mouth 4 times daily before meals and at bedtime., Disp: 120 Tablet, Rfl: 5 probenecid-colchicine (COLBENEMID) 0.5-500 mg Tablet, Take 1 Tab by mouth d aily. (Patient taking differently: Take 1 Tab by mouth qod), Disp: 60 Tablet, Rf l: 2 meclizine (ANTIVERT) 25 mg tablet, Take 1 Tablet (25 mg) by mouth 3 times d aily as needed for Dizziness., Disp: 60 Tablet, Rfl: 3 ALPRAZolam (XANAX) 0.25 mg tablet, [...] other day . , Disp: , Rfl: furosemide (LASIX) 20 mg tablet, Take 1 Tab by mouth daily., Disp: 30 Table t, Rfl: 5 * Angelia Garcia - 08/30/2016 9:37 AM CDT FALL RISK She has had no falls in the past year. documented in this encounter Plan of Treatment Not on filedocumented as of this encounter Visit Diagnoses Diagnosis Essential hypertension Unspecified essential hypertension Prediabetes Other abnormal glucose Nocturnal dyspnea Orthopnea Familial hypercholesterolemia Pure hypercholesterolemia Primary osteoarthritis involving multip le joints documented in this encounter Administered Medications Action Date Dose Rate Site Medication Order MAR Action 08/30/2016 11:08 AM CDT 4 mg Left Upp er Outer Quadrant dexamethasone (DECADRON) injection 4 mg Given 4 mg, IM, ONE TIME ONLY, 1 dose, Nathaly 08/30/16 at 1000, Routine 08/30/2016 11:09 AM CDT 80 mg Left Upp er Outer Quadrant methylPREDNISolone acetate (DEPO-Medrol) Given injection 80 mg 80 mg, IM, ONE TIME ONLY, 1 dose, Nathaly 08/30/16 at 1000, Routine documented in this encounter
--- OUTSIDE RECORDS SUMMARY | 2019-08-19 16:04 | XMS REPORT | Encounter Summary ---
Author Author [facility] Organization [facility] Address Unknown Phone Unavailable Care Team Providers Care Poly Packer And Heat Sealer Name Role Phone Carlotta Aguayo MD PCP Unavailable Reason for Referral * Outpatient Services (Routine) Referred By Contact Referred To Contact Status Reason Specialty Diagnoses / Procedures Gavin Toussaint Jr., DO [address] [address] [facility] [address] [place] [address] Closed Diagnoses Back pain, unspecified back location, unspecified back pain laterality, unspecified chronicity P rocedures MRI LUMBAR WO CONTRAST Reason for Visit * Outpatient Services (Routine) Referred By Contact Referred To Contact Status Reason Specialty Diagnoses / Procedures Gavin Toussaint Jr., DO [address] [address] [facility] [address] [place] [address] Closed Diagnoses Back pain, unspecified back location, unspecified back pain laterality, unspecified chronicity P rocedures MRI LUMBAR WO CONTRAST Encounter Details Care Team Description Date Type Department Gavin Toussaint Jr., DO [address] [address] 12/07/[address] [facility] F ort Encounter [facility] MRI [address] [place] [address] Social History Date Tobacco Use [...] Procedure Name Priority Date/Time Associated Diag nosis MRI LUMBAR WO CONTRAST Routine 12/07/2016 Back pa in, unspecified 1:36 PM CDT back location, unspecified back pain laterality, unspecified chronicity documented in this encounter Results * MRI LUMBAR WO CONTRAST (12/07/2016 1:36 PM CDT) Specimen Impressions Performed At IMPRESSION: INTERFACE SYSTEM Progression in chronic degenerative dis c disease at L4-5, with increased loss of the disc height, and progression in stenosis of the central canal and right neural foramen, now moderately severe Interval development of mild L4 on L5 a nterolisthesis Narrative Performed At Exam: MRI LUMBAR WO CONTRAST INTERFACE SYSTEM Date/Time of Exam: 12/07/2016 1:36 PM Reason For Exam: Back pain, unspecified back location, unspecified back pain laterality, unspecified chron icity. COMPARISON: MRI of the lumbar spine dated September 10, 2013 Technique Multiplanar multisequence MRI scans wit hout the use of IV contrast FINDINGS: Patient motion artifact limits interpre tation Again noted is moderate lumbar scoliosi s, with a clockwise rotary component. Scoliosis appears convex to the left, with apex at L2-3 There is mild edema of marrow in the ve rtebral endplates surrounding the L4-5 disc, most likely related perc ent chronic degenerative disc disease. When compared with September 10 there has been progression in degree of loss of the disc height at L4-5. There has also been interval developmen t of grade 1 L4 on L5 anterolisthesis measuring about 4 mm Lumbar vertebral body heights appear pr eserved Posterior elements appear intact Negative for significant spondylolisthe sis, apart from L4-5 The visualized portions of the spinal c ord appear within normal limits in contour and MRI signal T12-L1, mild disc narrowing, generali zed disc bulge Mild effacement of the anterior thecal sac from posterior disc Negative for critical neural foraminal stenosis L1-2, mild disc narrowing, generalize d disc bulge, minor vertebral osteophytes, mild chronic degenerative facet disease Mild effacement of the anterior thecal sac from posterior disc Negative for critical neural foraminal stenosis L2-3, mild disc narrowing, generalized disc bulge, minor vertebral osteophytes, mild chronic degenerative facet disease, mild ligamentum flavum hypertrophy Minimal effacement of the anterior thec al sac from posterior disc Negative for critical neural foraminal stenosis L3-4, mild disc narrowing, generalized disc bulge, minor vertebral osteophytes, mild ligamentum flavum hyp ertrophy, mild to moderate chronic degenerative facet disease Mild trefoil stenosis of the central ca nal Mild bilateral neural foraminal stenosi s L4-5, progression in degree of loss of disc height when compared with prior MRI, now moderately severe. Gener alized bulge of the disc, and posterior disc extrusion eccentric to t he right Central canal stenosis appears moderate ly severe Moderately severe right neural foramina l stenosis Moderate left neural foraminal stenosis L5-S1, moderate disc narrowing, diffuse posterior disc bulge, minor vertebral osteophytes, moderate chronic degenerative facet disease, mild ligamentum flavum hypertrophy Mild trefoil stenosis of the central ca nal Negative for significant right neural f oraminal stenosis Moderate left neural foraminal stenosis Procedure Note Interface, Tyrone Aok Incoming Radiology Results - 12/07/2016 2:03 PM CDT Exam: MRI LUMBAR WO CONTRAST Date/Time of Exam: 12/07/2016 1:36 PM Reason For Exam: Back pain, unspecified back location, unspecified back pain laterality, unspecified chronicity. COMPARISON: MRI of the lumbar spine dated September 10, 2013 Technique Multiplanar multisequence MRI scans without the use of IV contrast FINDINGS: Patient motion artifact limits interpretation Again noted is moderate lumbar scoliosis, with a clockwise rotary component. Scoliosis appears convex to the left, with apex at L2-3 There is mild edema of marrow in the vertebral endplates surrounding the L4-5 disc, most likely related percent chronic degenerative disc disease. When compared with September 10, 2013 there has been progression in degree of loss of the disc height at L4-5. There has also been interval development of grade 1 L4 on L5 anterolisthesis measuring about 4 mm Lumbar vertebral body heights appear preserved Posterior elements appear intact Negative for significant spondylolisthesis, apart from L4-5 The visualized portions of the spinal cord appear within normal limits in contour and MRI signal T12-L1, mild disc narrowing, generalized disc bulge Mild effacement of the anterior thecal sac from posterior disc Negative for critical neural foraminal stenosis L1-2, mild disc narrowing, generalized disc bulge, minor vertebral osteophytes, mild chronic degenerative facet disease Mild effacement of the anterior thecal sac from posterior disc Negative for critical neural foraminal stenosis L2-3, mild disc narrowing, generalized disc bulge, minor vertebral osteophytes, mild chronic degenerative facet disease, mild ligamentum flavum hypertrophy Minimal effacement of the anterior thecal sac from posterior disc Negative for critical neural foraminal stenosis L3-4, mild disc narrowing, generalized disc bulge, minor vertebral osteophytes, mild ligamentum flavum hypertrophy, mild to moderate chronic degenerative facet disease Mild trefoil stenosis of the central canal Mild bilateral neural foraminal stenosis L4-5, progression in degree of loss of disc height when compared with prior MRI, now moderately severe. Generalized bulge of the disc, and posterior disc extrusion eccentric to the right Central canal stenosis appears moderately severe Moderately severe right neural foraminal stenosis Moderate left neural foraminal stenosis L5-S1, moderate disc narrowing, diffuse posterior disc bulge, minor vertebral osteophytes, moderate chronic degenerative facet disease, mild ligamentum flavum hypertrophy Mild trefoil stenosis of the central canal Negative for significant right neural foraminal stenosis Moderate left neural foraminal stenosis IMPRESSION IMPRESSION: Progression in chronic degenerative disc disease at L4-5, with increased loss of the disc height, and progression in stenosis of the central canal and right neural foramen, now moderately severe Interval development of mild L4 on L5 anterolisthesis Performing Organization Address City/State/Zipcode Ph one Number INTERFACE SYSTEM INTERFACE SYSTEM Refer to clinic/hospital department documented in this encounter Visit Diagnoses Diagnosis Back pain, unspecified back location, u nspecified back pain laterality, unspecified chronicity documented in this encounter
--- OUTSIDE RECORDS SUMMARY | 2019-08-19 16:04 | XMS REPORT | Encounter Summary ---
Author Author [facility] Organization [facility] Address Unknown Phone Unavailable Care Team Providers Care High Energy Forming Equipment Operator Name Role Phone Carlotta Aguayo MD PCP Unavailable Reason for Visit * Reason Comments Medication Refill Encounter Details Care Team Description Date Type Department Carlotta Aguayo MD NO ADDRESS ON FILE 07/16/2016 Refill [facility] [address] [address] Social History Date Tobacco Use Types Packs/Day Years Used Never Smoker Smokeless Tobacco: Never Used Drinks/Week oz/Week Comments Alcohol Use No Sex Assigned at Date Recorded Not on file documented as of this encounter Plan of Treatment Not on filedocumented as of this encounter Visit Diagnoses Not on filedocumented in this encounter
--- OUTSIDE RECORDS SUMMARY | 2019-08-19 16:04 | XMS REPORT | Encounter Summary ---
Author Author [facility] Organization [facility] Address Unknown Phone Unavailable Care Team Providers Care Superintendent Drilling And Production Name Role Phone Carlotta Aguaoy MD PCP Unavailable Reason for Referral * Outpatient Services (Routine) Referred By Contact Referred To Contact Status Reason Specialty Diagnoses / Procedures Gavin Toussaint Jr., DO [address] [address] Closed Diagnoses Scoliosis of lumbar spine, unspecified scoliosis type Lumbar radiculopathy P rocedures PT EVAL AND TREAT Encounter Details Care Team Description Date Type Department Gavin Toussaint Jr., DO [address] [address] Scoliosis of lumbar spine, unspecified s coliosis type (Primary Dx); Lumbar radiculopathy 12/06/2016 Orders Only [facility] ranjana Galvez [facility] Physical Therapy [address] [place] [address] Social History Date Tobacco Use Types Packs/Day Years Used Never Smoker Smokeless Tobacco: Never Used Drinks/Week oz/Week Comments Alcohol Use No Sex Assigned at Date Recorded Not on file documented as of this encounter Plan of Treatment Order Schedule Name Type Priority Associated Diag noses 1 Occurrences starting 12/06/2016 until 12/06/2017 PT EVAL AND TREAT PT Routine Scoliosis of lumbar spine, unspecified scoliosis type Lumbar radiculopathy documented as of this encounter Visit Diagnoses Diagnosis Scoliosis of lumbar spine, unspecified scoliosis type Lumbar radiculopathy Thoracic or lumbosacral neuritis or rad iculitis, unspecified documented in this encounter
--- OUTSIDE RECORDS SUMMARY | 2019-08-19 16:04 | XMS REPORT | Encounter Summary ---
Author Author [facility] Organization [facility] Address Unknown Phone Unavailable Care Team Providers Care Half Backer Name Role Phone Carlotta Aguayo MD PCP Unavailable Encounter Details Care Team Description Date Type Department Norbert Carrillo, Gavin Solorzano, DO [address] [place] [address] Anay Thompson, Sampling Expert [phone] Scoliosis of lumbar spine, unspecified s coliosis type 12/25/2016 [facility] F ort Encounter [facility] [address] [place] [address] Social History Date Tobacco Use [...] Notes * Therapy Treatment - Anay Thompson, Sampling Expert - 12/25/2016 3:29 PM CDT OUT PATIENT THERAPY 3RD VISIT UPDATE [id number] Patient Name: Era Viveros : 1940 Visit # 4 Charges Time In: 14:00 Time Out: 14:45 Total Time: 45 IN MINUTES: Therapeutic Exercise- 45 Subjective Pt reports "I'm trying to do the exercises". Pt reports she [facility] a longer distance but needs to use the cart for support. Pain at onset of treatment: 0/10 Pain at completion of treatment 2/10 Objective Treatment completed per flow sheet - scanned document. Pt continues to require some vc's when performing the HEP. Assessment Pain has remained similar, Patient is completing HEP as recommended Ongoing Screening of Patient: The patient has not been hospitalized recently The patient has not had any changes to medications The patient has not experienced any changes in allergies Plan Continue POC established for goals and signed by physician. Anay Thompson, Sampling Expert Contact Information [facility] Services [address] [place] [address] Jose De Jesus Galvez [address] Electronically signed by Anay Thompson, Sampling Expert at 3:34 PM CDT documented in this encounter Plan of Treatment Not on filedocumented as of this encounter Visit Diagnoses Not on filedocumented in this encounter
--- OUTSIDE RECORDS SUMMARY | 2019-08-19 16:04 | XMS REPORT | Encounter Summary ---
Author Author [facility] Address Unknown Phone Unavailable Care Team Providers Care Classroom Monitor Name Role Phone Carlotta Aguayo MD PCP Unavailable Encounter Details Care Team Description Date Type Department Norbert Carrlilo, Gavin Solorzano, DO [address] [place] [address] [place] [phone] Bolivar Boyer, Physical Therapist Scoliosis of lumbar spine, unspecified scoliosis type 12/28/2016 [facility] F ort Encounter [facility] [address] [place] [address] Social History Date Tobacco Use [...] Treatment - Bolivar Boyer, Physical Therapist - 12/28/2016 5:12 PM CDT OUT PATIENT THERAPY TREATMENT NOTE 12/28/2016 [id number] Patient Name: Era Viveros : 1940 Visit # 5 Date: 12/28/2016 Charges Time In: 1451 Time Out: 1546 Total Time: 55 minutes IN MINUTES: Therapeutic Exercise- 40 Subjective The patient reports improved pain and taking less pain medication. Pain at onset of treatment: 0/10 Pain at completion of treatment 1/10 Objective Treatment completed per flow sheet - scanned document. Assessment Pain has decreased Functional status is improved. Progressing per established protocol Plan Continue POC established for goals and signed by physician. Bolivar Boyer, Physical Therapist Contact Information [facility] [address] [place] [phone] documented in this encounter Plan of Treatment Not on filedocumented as of this encounter Visit Diagnoses Not on filedocumented in this encounter
--- OUTSIDE RECORDS SUMMARY | 2019-08-19 16:04 | XMS REPORT | Encounter Summary ---
Author Author [facility] Organization [facility] Address Unknown Phone Unavailable Care Team Providers Care Software Writer Name Role Phone Carlotta Aguayo MD PCP Unavailable Encounter Details Care Team Description Date Type Department Carlotta Aguayo MD NO ADDRESS ON FILE 08/30/[address] [address] Social History Date Tobacco Use Types Packs/Day Years Used Never Smoker Smokeless Tobacco: Never Used Drinks/Week oz/Week Comments Alcohol Use No Sex Assigned at Date Recorded Not on file documented as of this encounter Plan of Treatment Not on filedocumented as of this encounter Visit Diagnoses Not on filedocumented in this encounter
--- OUTSIDE RECORDS SUMMARY | 2019-08-19 16:04 | XMS REPORT | Encounter Summary ---
Author Author [facility] Organization [facility] Address Unknown Phone Unavailable Care Team Providers Care Bear Keeper Name Role Phone Carlotta Aguayo MD PCP Unavailable Reason for Visit * Reason Comments Immunization/Injection Encounter Details Care Team Description Date Type Department Dede, Nurse Chronic left-sided low back pain with sc iatica, sciatica laterality unspecified (Primary Dx) 10/22/2016 Immunization [facility] Primar y Care [address] [id number] Social History Date Tobacco Use Types Packs/Day Years Used Never Smoker Smokeless Tobacco: Never Used Drinks/Week oz/Week Comments Alcohol Use No Sex Assigned at Date Recorded Not on file documented as of this encounter Plan of Treatment Not on filedocumented as of this encounter Visit Diagnoses Diagnosis Chronic left-sided low back pain with s ciatica, sciatica laterality unspecified documented in this encounter Administered Medications Action Date Dose Rate Site Medication Order MAR Action 10/22/2016 2:37 PM CDT 4 mg Left Upp er Outer Quadrant dexamethasone (DECADRON) injection 4 mg Given 4 mg, IM, ONE TIME ONLY, 1 dose, Sat10/22/16 at 1445, Routine 10/22/2016 2:37 PM CDT 80 mg Left Upp er Outer Quadrant methylPREDNISolone acetate (DEPO-Medrol) Given injection 80 mg 80 mg, IM, ONE TIME ONLY, 1 dose, Sat10/22/16 at 1445, Routine documented in this encounter
--- OUTSIDE RECORDS SUMMARY | 2019-08-19 16:04 | XMS REPORT | Encounter Summary ---
Author Author [facility] Organization [facility] Address Unknown Phone Unavailable Care Team Providers Care Resident Care Associate Name Role Phone Carlotta Aguayo MD PCP Unavailable Encounter Details Care Team Description Date Type Department Norbert Carrillo, Gavin Solorzano, DO [address] [place] [address] Anay Thompson, Car Sales Representative [phone] Scoliosis of lumbar spine, unspecified s coliosis type 01/01/2017 [facility] F ort Encounter [facility] Physical Therapy [address] [place] [address] Social History Date Tobacco Use [...] Notes * Therapy Treatment - Anay Thompson, Car Sales Representative - 01/01/2017 4:05 PM CDT OUT PATIENT THERAPY TREATMENT NOTE 01/01/2017 [id number] Patient Name: Era Viveros : 1940 Visit # 6 Date: 01/01/2017 Charges Time In:15:00 Time Out:15:50 Total Time: 50 IN MINUTES: Therapeutic Exercise- 45 Subjective Pt reports she is performing exercises at home. Pt reports having some increase in pain and blames the weather. Pain at onset of treatment: 3 04/02/09 Pain at completion of treatment 06/08 Objective Treatment completed per flow sheet - scanned document. Assessment Pain has decreased this treatment. Patient is completing HEP as recommended Plan Continue POC established for goals and signed by physician. Anay Thompson Car Sales Representative Contact Information [facility] [address] [place] [phone] Electronically signed by Anay Thompson, Car Sales Representative at 4:09 PM CDT documented in this encounter Plan of Treatment Not on filedocumented as of this encounter Visit Diagnoses Not on filedocumented in this encounter
--- OUTSIDE RECORDS SUMMARY | 2019-08-19 16:04 | XMS REPORT | Encounter Summary ---
Author Author [facility] Organization [facility] Address Unknown Phone Unavailable Care Team Providers Care Performance Test Architect Name Role Phone Carlotta Aguayo MD PCP Unavailable Encounter Details Care Team Description Date Type Department Norbert Carrillo, Gavin Solorzano, DO [address] [place] [address] Anay Thompson, Hammer Adjuster [phone] Scoliosis of lumbar spine, unspecified s coliosis type 12/18/2016 [facility] F ort Encounter [facility] Physical Therapy [address] [place] [address] Social History Date Tobacco Use [...] Notes * Therapy Treatment - Anay Thompson, Hammer Adjuster - 12/18/2016 4:05 PM CDT OUT PATIENT THERAPY TREATMENT NOTE 12/18/2016 [id number] Patient Name: Era Viveros : 1940 Visit # 2 Date: 12/18/2016 Charges Time In: 15:00 Time Out:15:55 Total Time: 55 IN MINUTES: Therapeutic Exercise- 45 Subjective Pt reports "the doctor told me that I also have spinal stenosis" Pt had no new complaints. Pain at onset of treatment: 0/10 with sitting Pain at completion of treatment 0/10 sitting, 3/10 walking. Objective Treatment completed per flow sheet - scanned document.HEP given to patient Assessment Pain has remained similar Plan Continue POC established for goals and signed by physician. Anay Thompson Hammer Adjuster Contact Information [facility] [address] [place] [phone] Electronically signed by Anay Thompson, Hammer Adjuster at 4:09 PM CDT documented in this encounter Plan of Treatment Not on filedocumented as of this encounter Visit Diagnoses Not on filedocumented in this encounter
--- OUTSIDE RECORDS SUMMARY | 2019-08-19 16:04 | XMS REPORT | Encounter Summary ---
Author Author [facility] Organization [facility] Address Unknown Phone Unavailable Care Team Providers Care Piece Meat Trimmer Name Role Phone Carlotta Aguayo MD PCP Unavailable Encounter Details Care Team Description Date Type Department Carlotta Aguayo MD NO ADDRESS ON FILE Ftsc, Outpt Lab 08/30/2016 [facility] Outpatient Encounter Laboratory [address] [address] Social History Date Tobacco Use [...] Capsule mouth 2 times daily OMEGA RED. 08/30/2016 07/18/2017 HYDROcodone-acetaminophen Take 1 Tablet 120 [...] 3 times daily as needed for Anxiety. 02/13/2016 08/31/2016 furosemide (LASIX) 20 mg Take 1 Tab by 30 Tablet 5 tablet mouth daily. 08/08/2017 lansoprazole (PREVACID) Take 15 mg by [...] Procedure Name Priority Date/Time Associated Diag nosis HEMOGLOBIN A1C Stat 08/30/2016 Hyperglycemia 8:17 AM CDT COMPREHENSIVE METABOLIC Stat 08/30/2016 [facility] [place] [facility] PANEL 8:17 AM CDT documented in this encounter Results * HEMOGLOBIN A1C (08/30/2016 8:17 AM CDT) HEMOGLOBIN A1C 5.5 4.8 - 5.9 % [facility] - [place] EST. AVG 111 mg/dL [facility] GLUCOSE, A1C LABORATORY SERVICES - [place] Specimen Blood Performing Organization Address City/State/[facility] Ph one Number [facility] CLIA# [id number] [place] [address] [place] [address] [facility] * COMPREHENSIVE METABOLIC PANEL (08/30/2016 8:17 AM CDT) SODIUM 142 136 - 145 mmol/L [facility] [place] POTASSIUM 3.9 3.5 - 5.1 mmol/L [facility] [place] CHLORIDE 103 98 - 107 mmol/L [facility] [place] CO2 22 22 - 29 mmol/L [facility] [place] CALCIUM 8.9 8.8 - 10.2 mg/dL [facility] [place] BUN 18 8 - 23 mg/dL [facility] [place] CREATININE 1.66 (H) 0.51 - 0.95 mg/dL [facility] Comment: LABORATORY The GFR result is not [facility] clinically significant on [place] patients <18 or >70 years of age. GLUCOSE 118 (H) 70 - 100 mg/dL [facility] [place] TOTAL PROTEIN 7.2 6.6 - 8.7 g/dL [facility] ALBUMIN 4.0 3.5 - 5.2 g/dL [facility] BILIRUBIN TOTAL 0.2 <=1.2 mg/dL [facility] ALKALINE 82 35 - 104 U/L [facility] PHOSPHATASE LABORATORY SERVICES - [place] AST 44 (H) <=33 U/L [facility] ALT 46 (H) 10 - 35 U/L [facility] - [place] GFR 30 mL/min/1.73 sq meter [facility] Comment: LABORATORY eGFR has not been validated [facility] for use in the elderly (> 70 [place] years of age), women, patients with serious [...] please refer to the GFR result. GFR, 37 mL/min/1.73 sq meter [facility]ORY [facility] - [place] ANION GAP 17 4 - 20 mmol/L [facility] Specimen Blood Performing Organization Address City/State/Zipcode Ph one Number [facility] CLIA# [id number] [place] [address] - [place] [address] [place] [address] documented in this encounter Visit Diagnoses Diagnosis Essential hypertension Unspecified essential hypertension Hyperglycemia Other abnormal glucose documented in this encounter
--- OUTSIDE RECORDS SUMMARY | 2019-08-19 16:04 | XMS REPORT | Encounter Summary ---
Author Author [facility] Organization [facility] Address Unknown Phone Unavailable Care Team Providers Care Operations Lieutenant Name Role Phone Carlotta Aguayo MD PCP Unavailable Encounter Details Care Team Description Date Type Department Carlotta Aguayo MD NO ADDRESS ON FILE Ftsc, Outpt Lab 05/24/2016 [facility] Outpatient Encounter Laboratory [address] [address] Social History Date Tobacco Use [...] Capsule mouth 2 times daily OMEGA RED. 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 05/21/2016 04/02/2017 probenecid-colchicine Take 1 Tab by 60 Tablet 2 (COLBENEMID) 0.5-500 mg mouth daily. Tablet 02/16/2016 10/16/2017 ALPRAZolam (XANAX) 0.25 Take 1 Tablet 90 Tablet 3 mg tabletIndications: (0.25 mg) by Anxiety mouth 3 times daily as needed for Anxiety. 02/13/2016 08/31/2016 furosemide (LASIX) 20 mg Take 1 Tab by 30 Tablet 5 tablet mouth daily. 01/25/2016 07/30/2016 NIFEdipine (PROCARDIA XL) Take 1 Tab by 60 Tablet 5 30 mg Extended Release 24 mouth 2 times hour tablet daily. 01/09/2016 07/16/2016 raloxifene (EVISTA) 60 mg Take 1 Tab by 30 Tablet 5 tablet mouth daily. 01/09/2016 07/30/2016 metoprolol tartrate Take 1 Tab by 60 Tablet 5 (LOPRESSOR) 25 mg tablet mouth 2 times daily. 10/10/2015 06/18/2016 dicyclomine (BENTYL) 20 Take 1 Tab by 120 Tablet 3 mg tablet mouth 4 times daily before meals and at bedtime. 08/08/2017 lansoprazole (PREVACID) Take 15 mg by [...] Date/Time Associated Diag nosis HEMOGLOBIN A1C Stat 05/24/2016 Hyperglycemia 8:41 AM AUTOMOTIVE WINDOW TINTER LIPID PANEL Stat 05/24/2016 Pure hyperchole sterolemia 8:41 AM AUTOMOTIVE WINDOW TINTER COMPREHENSIVE METABOLIC Stat 05/24/2016 Predia betes PANEL 8:41 AM AUTOMOTIVE WINDOW TINTER documented in this encounter Results * HEMOGLOBIN A1C (05/24/2016 8:41 AM AUTOMOTIVE WINDOW TINTER) HEMOGLOBIN A1C 5.2 4.8 - 5.9 % [facility] LAB[facility]ATORY [facility] [place] EST. AVG 103 mg/dL [facility] GLUCOSE, A1C LABORATORY SERVICES - [place] Specimen Blood Performing Organization Address City/State/[facility]code Ph one Number [facility] LABORATORY SERVICES CLIA# [id number] [place] [address] [place] [address] [facility] * LIPID PANEL (05/24/2016 8:41 AM AUTOMOTIVE WINDOW TINTER) CHOLESTEROL 229 (H) <200 mg/dL [facility] LABORATORY [facility] [place] TRIGLYCERIDE 112 <150 mg/dL [facility] [place] HDL 81 (H) 40 - 59 mg/dL [facility] [place] LDL CALCULATED 126 (H) <100 mg/dL [facility] - [place] NON-HDL 148 (H) <130 mg/dL [facility] CHOLESTEROL LABORATORY SERVICES - [place] Specimen Blood Narrative Performed At TOTAL CHOLESTEROL mg/dL [facility] LABORATORY Desirable <200 SERVICES - [facility] Borderline high 200-239 [place] High >=240 [...] for Lipid Panels (NCEP/AMA) Performing Organization Address City/State/[facility] Ph one Number [facility] LABORATORY SERVICES CLIA# [id number] [place] [address] - [place] [address] * COMPREHENSIVE METABOLIC PANEL (05/24/2016 8:41 AM AUTOMOTIVE WINDOW TINTER) SODIUM 142 136 - 145 mmol/L [facility] [place] POTASSIUM 3.5 3.5 - 5.1 mmol/L [facility] [place] CHLORIDE 103 98 - 107 mmol/L [facility] [place] CO2 23 22 - 29 mmol/L [facility] [place] CALCIUM 9.1 8.8 - 10.2 mg/dL [facility] [place] BUN 16 8 - 23 mg/dL [facility] LABORATORY SERVICES - [place] CREATININE 1.61 (H) 0.51 - 0.95 mg/dL [facility] Comment: LABORATORY The GFR result is not SERVICES - [facility] clinically significant on [place] patients <18 or >70 years of age. GLUCOSE 106 (H) 70 - 100 mg/dL [facility] [place] TOTAL PROTEIN 7.1 6.6 - 8.7 g/dL [facility] [place] ALBUMIN 4.0 3.5 - 5.2 g/dL [facility] [place] BILIRUBIN TOTAL 0.2 <=1.2 mg/dL [facility] [place] ALKALINE 77 35 - 104 U/L [facility] PHOSPHATASE LABORATORY SERVICES - [place] AST 51 (H) <=33 U/L [facility] LABORATORY SERVICES - [place] ALT 51 (H) 10 - 35 U/L [facility] LABORATORY SERVICES - [place] GFR 31 mL/min/1.73 sq meter [facility] Comment: LABORATORY eGFR has not been validated [facility] for use in the elderly [...] GFR, 38 mL/min/1.73 sq meter [facility] [place] LABORATORY SERVICES - [place] ANION GAP 16 4 - 20 mmol/L [facility] LABORATORY [facility] [place] Specimen Blood Performing Organization Address City/State/Zipcode Ph one Number [facility] LABORATORY SERVICES CLIA# [id number] [place] [address] - [place] [address] documented in this encounter Visit Diagnoses Diagnosis Prediabetes Other abnormal glucose Pure hypercholesterolemia Hyperglycemia Other abnormal glucose documented in this encounter
--- OUTSIDE RECORDS SUMMARY | 2019-08-19 16:04 | XMS REPORT | Encounter Summary ---
Author Author [facility] Organization [facility] Address Unknown Phone Unavailable Care Team Providers Care South Asian History Professor Name Role Phone Carlotta Aguayo MD PCP Unavailable Reason for Visit * Reason Comments Medication Refill Encounter Details Care Team Description Date Type Department Carlotta Aguayo MD NO ADDRESS ON FILE 08/31/2016 Refill [facility] [address] [address] Social History Date Tobacco Use Types Packs/Day Years Used Never Smoker Smokeless Tobacco: Never Used Drinks/Week oz/Week Comments Alcohol Use No Sex Assigned at Date Recorded Not on file documented as of this encounter Plan of Treatment Not on filedocumented as of this encounter Visit Diagnoses Not on filedocumented in this encounter
--- OUTSIDE RECORDS SUMMARY | 2019-08-19 16:04 | XMS REPORT | Encounter Summary ---
Author Author [facility] Organization [facility] Address Unknown Phone Unavailable Care Team Providers Care Contract Negotiation Specialist Name Role Phone Carlotta Aguayo MD PCP Unavailable Reason for Visit * Reason Comments Immunization/Injection pneumovax 23 Encounter Details Care Team Description Date Type Department Nurse Dede Need for vaccination (Primary Dx) 06/21/2016 Immunization [facility] Primar y [address] [address] Social History Date Tobacco Use Types Packs/Day Years Used Never Smoker Smokeless Tobacco: Never Used Drinks/Week oz/Week Comments Alcohol Use No Sex Assigned at Date Recorded Not on file documented as of this encounter Plan of Treatment Not on filedocumented as of this encounter Visit Diagnoses Diagnosis Need for vaccination Need for prophylactic vaccination and i noculation against unspecified single disease documented in this encounter
--- OUTSIDE RECORDS SUMMARY | 2019-08-19 16:04 | XMS REPORT | Encounter Summary ---
Author Author [facility] Organization [facility] Address Unknown Phone Unavailable Care Team Providers Care Remelt Sugar Boiler Name Role Phone Carlotta Aguayo MD PCP Unavailable Reason for Referral * Outpatient Services (Routine) Referred By Contact Referred To Contact Status Reason Specialty Diagnoses / Procedures Gavin Toussaint Jr., DO [address] [address] Closed Diagnoses Scoliosis of lumbar spine, unspecified scoliosis type Lumbar radiculopathy P rocedures PT EVAL AND TREAT Reason for Visit * Outpatient Services (Routine) Referred By Contact Referred To Contact Status Reason Specialty Diagnoses / Procedures Gavin Toussaint Jr., DO [address] [address] Closed Diagnoses Scoliosis of lumbar spine, unspecified scoliosis type Lumbar radiculopathy P rocedures PT EVAL AND TREAT Encounter Details Care Team Description Date Type Department Gavin Toussaint Jr., DO [address] [address] Bolivar Boyer, Physical Therapist 12/13/2016 [facility] F ort Encounter [facility] [address] [place] [address] Social History Date Tobacco Use [...] Schedule Name Type Priority Associated Diag noses Added to HDF configuration to grandchild elayne will have ORD item 7061 populate with time. for 1 Occurrences starting 12/13/2016 until 12/13/2016 PT EVAL AND TREAT PT Routine Scoliosis of lumbar spine, unspecified scoliosis type Lumbar radiculopathy documented as of this encounter Visit Diagnoses Diagnosis Scoliosis of lumbar spine, unspecified scoliosis type Lumbar radiculopathy Thoracic or lumbosacral neuritis or rad iculitis, unspecified documented in this encounter
--- OUTSIDE RECORDS SUMMARY | 2019-08-19 16:04 | XMS REPORT | Encounter Summary ---
Author Author [facility] Organization [facility] Address Unknown Phone Unavailable Care Team Providers Care Cement Finisher Helper Name Role Phone Carlotta Aguayo MD PCP Unavailable Encounter Details Care Team Description Date Type Department Norbert Carrillo, Gavin Solorzano, DO [address] [place] [address] Anay Thompson, Housing Officer [phone] Scoliosis of lumbar spine, unspecified s coliosis type 12/20/2016 [facility] F ort Encounter [facility] Physical Therapy [address] [place] [address] Social History Date Tobacco Use [...] Notes * Therapy Treatment - Anay Thompson, Housing Officer - 12/20/2016 4:22 PM CDT OUT PATIENT THERAPY 3RD VISIT UPDATE [id number] Patient Name: Era Viveros : 1940 Visit # 3 Charges Time In: 15:05 Time Out: 15:52 Total Time: 47 IN MINUTES: Therapeutic Exercise- 42 Subjective Pt reports the HEP made her sore and she was only able to perform them once a d ay.. Pt had no new complaints. Pain at onset of treatment: 2/10 "stiff" Pain at completion of treatment 0/10 Objective Treatment completed per flow sheet - scanned document. Assessment Pain has remained similar, Progressing per established protocol Ongoing Screening of Patient: The patient has not been hospitalized recently The patient has not had any changes to medications The patient has not experienced any changes in allergies Plan Continue POC established for goals and signed by physician. Anay Thompson Housing Officer Contact Information [facility] [address] [place] [address] Jose De Jesus [place] [phone] Electronically signed by Anay Thompson, Housing Officer at 4:26 PM CDT documented in this encounter Plan of Treatment Not on filedocumented as of this encounter Visit Diagnoses Not on filedocumented in this encounter
--- OUTSIDE RECORDS SUMMARY | 2019-08-19 16:04 | XMS REPORT | Encounter Summary ---
Author Author [facility] Organization [facility] Address Unknown Phone Unavailable Care Team Providers Care Principal Bioinformatics Specialist Name Role Phone Carlotta Aguayo MD PCP Unavailable Reason for Visit * Reason Comments Medication Refill Encounter Details Care Team Description Date Type Department Carlotta Aguayo MD NO ADDRESS ON FILE 06/18/[address] [facility] [address] [address] Social History Date Tobacco Use Types Packs/Day Years Used Never Smoker Smokeless Tobacco: Never Used Drinks/Week oz/Week Comments Alcohol Use No Sex Assigned at Date Recorded Not on file documented as of this encounter Plan of Treatment Not on filedocumented as of this encounter Visit Diagnoses Not on filedocumented in this encounter
--- OUTSIDE RECORDS SUMMARY | 2019-08-19 16:04 | XMS REPORT | Encounter Summary ---
Author Author [facility] Organization [facility] Address Unknown Phone Unavailable Care Team Providers Care Qualitative Researcher Name Role Phone Carlotta Aguayo MD PCP Unavailable Reason for Visit * Reason Comments Medication Refill Encounter Details Care Team Description Date Type Department Carlotta Aguayo MD NO ADDRESS ON FILE 07/30/2016 Refill [facility] [address] [address] Social History Date Tobacco Use Types Packs/Day Years Used Never Smoker Smokeless Tobacco: Never Used Drinks/Week oz/Week Comments Alcohol Use No Sex Assigned at Date Recorded Not on file documented as of this encounter Plan of Treatment Not on filedocumented as of this encounter Visit Diagnoses Not on filedocumented in this encounter
--- OUTSIDE RECORDS SUMMARY | 2019-08-19 16:05 | XMS REPORT | Encounter Summary ---
Author Author [facility] Organization [facility] Address Unknown Phone Unavailable Care Team Providers Care Contact Acid Plant Operator Helper Name Role Phone Carlotta Aguayo MD PCP Unavailable Reason for Visit * Reason Comments Follow Up 3 month Immunization/Injection flu shot Medication Refill xanex and hydrocodone Results lab Encounter Details Care Team Description Date Type Department Carlotta Aguayo MD NO ADDRESS ON FILE Elevated glucose (Primary Dx); Gout, unspecified cause, unspecified chronicity, unspecified site; Primary osteoarthritis involving multiple joints; Prediabetes; Pure hypercholesterolemia; Dizziness; Hyperglycemia; Anxiety; Need for influenza vaccination 02/16/2016 Office Visit [address] [address] Social History Date Tobacco Use Types Packs/Day Years Used Never Smoker Smokeless Tobacco: Never Used Drinks/Week oz/Week Comments Alcohol Use No Sex Assigned at Date Recorded Not on file documented as of this encounter Last Filed Vital Signs Reading Time Taken Comments Vital Sign 135/80 02/16/2016 9:26 AM WASTEWATER ANALYST LAB ANALYST Blood Pressure - - Pulse - - Temperature - - Respiratory Rate - - Oxygen Saturation - - Inhaled Oxygen Concentration 72.6 kg (160 lb) 02/16/2016 9:26 AM WASTEWATER ANALYST LAB ANALYST Weight 149.9 cm (4' 11") 02/16/2016 9:26 AM WASTEWATER ANALYST LAB ANALYST Height 32.32 02/16/2016 9:26 AM WASTEWATER ANALYST LAB ANALYST Body Mass Index documented in this encounter Progress Notes * Goyo Aguayo MD - 02/16/2016 9:20 AM WASTEWATER ANALYST LAB ANALYST Era Viveros is a 75 y.o. female History of Present Illness HPI here with follow up multiple concerns. All stable and here for follow up. Review of Systems Review of Systems Constitutional: Negative for activity change, appetite change, fatigue, fever an d unexpected weight change. HENT: Negative for congestion. Respiratory: Negative for shortness of breath. Cardiovascular: Negative for chest pain. Gastrointestinal: Negative for abdominal pain. Genitourinary: Negative for menstrual problem. Musculoskeletal: Negative for arthralgias and neck stiffness. Neurological: Negative for weakness. Physical Exam Blood pressure 135/80, height 4' 11" (1.499 m), weight 72.6 kg (160 lb). Physical Exam Constitutional: She is oriented to [...] vitals reviewed. Lab Results Component Value Date/Time NA 142 02/16/2016 08:16 AM K 3.8 02/16/2016 08:16 AM CL 104 02/16/2016 08:16 AM CO2 22 02/16/2016 08:16 AM CA 9.2 02/16/2016 08:16 AM BUN 22 02/16/2016 08:16 AM CREAT 1.69 (H) 02/16/2016 08:16 AM GLUCOSE 107 (H) 02/16/2016 08:16 AM TOTALPROTEIN 7.6 02/16/2016 08:16 AM ALBUMIN 4.1 02/16/2016 08:16 AM BILITOTAL 0.3 02/16/2016 08:16 AM ALKPHOS 86 02/16/2016 08:16 AM AST 50 (H) 02/16/2016 08:16 AM ALT 60 (H) 02/16/2016 08:16 AM ANIONGAP 16 02/16/2016 08:16 AM BCRATIO 13.5 03/06/2012 07:50 AM Lab Results Component Value Date/Time HGBA1C 5.6 02/16/2016 08:16 AM ASSESSMENT: Encounter Diagnoses Name Primary? Elevated glucose Yes Gout, unspecified cause, unspecified chronicity, unspecified site Primary osteoarthritis involving multiple joints Prediabetes Pure hypercholesterolemia Dizziness Hyperglycemia Anxiety Need for influenza vaccination PLAN: Orders Placed This Encounter INFLUENZA VACCINE HIGH DOSE 65+ YRS IM HEMOGLOBIN A1C CMP (3 MONTHS X 1) LIPID PANEL (3 MONTHS X 1) HEMOGLOBIN A1C (3 MONTHS X 1) meclizine (ANTIVERT) 25 mg tablet HYDROcodone-acetaminophen (NORCO) 5-325 mg tablet ALPRAZolam (XANAX) 0.25 mg tablet Current Outpatient Prescriptions: meclizine (ANTIVERT) 25 mg tablet, Take 1 Tablet (25 mg) by mouth 3 times d aily as needed for Dizziness., Disp: 60 Tablet, Rfl: 3 HYDROcodone-acetaminophen (NORCO) 5-325 mg tablet, Take 1 Tablet by mouth e very 4 hours as needed for Pain, Moderate., Disp: 120 Tablet, Rfl: 0 ALPRAZolam (XANAX) 0.25 mg tablet, Take 1 Tablet (0.25 mg) by mouth 3 times daily as needed for Anxiety., Disp: 90 Tablet, Rfl: 3 furosemide (LASIX) 20 mg tablet, Take 1 Tab by mouth daily., Disp: 30 Table t, Rfl: 5 NIFEdipine (PROCARDIA XL) 30 mg Extended Release 24 hour tablet, Take 1 Tab by mouth 2 times daily., Disp: 60 Tablet, Rfl: 5 raloxifene (EVISTA) 60 mg tablet, Take 1 Tab by mouth daily., Disp: 30 Tabl et, Rfl: 5 metoprolol tartrate (LOPRESSOR) 25 mg tablet, Take 1 Tab by mouth 2 times d aily., Disp: 60 Tablet, Rfl: 5 dicyclomine (BENTYL) 20 mg tablet, Take 1 Tab by mouth 4 times daily before meals and at bedtime., Disp: 120 Tablet, Rfl: 3 colchicine-probenecid (COLBENEMID) 0.5-500 mg Tablet, Take 1 Tab by mouth d aily., Disp: 60 Tablet, Rfl: 3 ferrous sulfate (FEOSOL) 325 [...] other day . , Disp: , Rfl: EWATER ANALYST LAB ANALYST documented in this encounter Plan of Treatment Not on filedocumented as of this encounter Results * HEMOGLOBIN A1C (05/24/2016 8:41 AM WASTEWATER ANALYST LAB ANALYST) HEMOGLOBIN A1C 5.2 4.8 - 5.9 % [facility] [place] EST. AVG 103 mg/dL [facility] GLUCOSE, A1C [facility] [place] Specimen Blood Performing Organization Address City/State/[facility] Ph one Number [facility] CLIA# [id number] [place], [place] [address] [place] [address] * LIPID PANEL (05/24/2016 8:41 AM WASTEWATER ANALYST LAB ANALYST) CHOLESTEROL 229 (H) <200 mg/dL [facility] [place] TRIGLYCERIDE 112 <150 mg/dL [facility] [place] HDL 81 (H) 40 - 59 mg/dL [facility] LDL CALCULATED 126 (H) <100 mg/dL [facility] [place] NON-HDL 148 (H) <130 mg/dL [facility] CHOLESTEROL [facility] [place] Specimen Blood Narrative Performed At TOTAL CHOLESTEROL mg/dL [facility] [place] <200 [facility] [...] Performing Organization Address City/State/Zipcode Ph one Number [facility] CLIA# [id number] [place], [place] [address] [place] [address] * COMPREHENSIVE METABOLIC PANEL (05/24/2016 8:41 AM WASTEWATER ANALYST LAB ANALYST) [facility] SODIUM 142 136 - 145 mmol/L [facility] [place] POTASSIUM 3.5 3.5 - 5.1 mmol/L [facility] [place] CHLORIDE 103 98 - 107 mmol/L [facility] [place] CO2 23 22 - 29 mmol/L [facility] [place] CALCIUM 9.1 8.8 - 10.2 mg/dL [facility] [place] BUN 16 8 - 23 mg/dL [facility] [place] CREATININE 1.61 (H) 0.51 - 0.95 mg/dL [facility] Comment: LABORATORY The GFR result is not SERVICES - [facility] clinically significant on [place] patients <18 or >70 years of age. GLUCOSE 106 (H) 70 - 100 mg/dL [facility] [place] TOTAL PROTEIN 7.1 6.6 - 8.7 g/dL [facility] [place] ALBUMIN 4.0 3.5 - 5.2 g/dL [facility] [place] BILIRUBIN TOTAL 0.2 <=1.2 mg/dL [facility] [place] ALKALINE 77 35 - 104 U/L [facility] [place] AST 51 (H) <=33 U/L [facility] [place] ALT 51 (H) 10 - 35 U/L [facility] [place] GFR 31 mL/min/1.73 sq meter [facility] Comment: LABORATORY eGFR has not been validated [facility] - [facility] for use in the elderly [...] GFR result. GFR, 38 mL/min/1.73 sq meter [facility] [place] ANION GAP 16 4 - 20 mmol/L [facility] [place] Specimen Blood Performing Organization Address [facility] one [facility] LABORATORY SERVICES CLIA# [id number] [place] [address] - [address] * HEMOGLOBIN A1C (02/16/2016 8:16 AM WASTEWATER ANALYST LAB ANALYST) HEMOGLOBIN A1C 5.6 4.8 - 5.9 % [facility] [place] EST. AVG 114 mg/dL [facility] GLUCOSE, A1C [facility] [place] Specimen Blood Performing Organization Address [facility] one [facility] LABORATORY [facility] CLIA# [id number] [place], [place] [address] [address] documented in this encounter Visit Diagnoses Diagnosis Elevated glucose Other abnormal glucose Gout, unspecified cause, unspecified ch ronicity, unspecified site Primary osteoarthritis involving multip le joints Prediabetes Other abnormal glucose Pure hypercholesterolemia Dizziness Dizziness and giddiness Hyperglycemia Other abnormal glucose Anxiety Anxiety state, unspecified Need for influenza vaccination Need for prophylactic vaccination and i noculation against influenza documented in this encounter
--- OUTSIDE RECORDS SUMMARY | 2019-08-19 16:05 | XMS REPORT | Encounter Summary ---
Author Author [facility] Organization [facility] Address Unknown Phone Unavailable Care Team Providers Care Research Computing Specialist Name Role Phone Carlotta Aguayo MD PCP Unavailable Reason for Visit * Reason Comments Follow Up 3 mos Results lab Question discuss dc oxygen Back Pain radiating into left leg Encounter Details Care Team Description Date Type Department Carlotta Aguayo MD NO ADDRESS ON FILE Essential hypertension (Primary Dx); Primary osteoarthritis involving multiple joints; Pure hypercholesterolemia; Prediabetes 11/10/2015 Office Visit [facility] Primar y [address] [address] Social History Date Tobacco Use Types Packs/Day Years Used Never Smoker Smokeless Tobacco: Never Used Drinks/Week oz/Week Comments Alcohol Use No Sex Assigned at Date Recorded Not on file documented as of this encounter Last Filed Vital Signs Reading Time Taken Comments Vital Sign 136/84 11/10/2015 9:48 AM CDT Blood Pressure - - Pulse - - Temperature - - Respiratory Rate - - Oxygen Saturation - - Inhaled Oxygen Concentration 71.7 kg (158 lb) 11/10/2015 9:48 AM CDT Weight 150.5 cm (4' 11.25") 11/10/2015 9:48 AM CDT Height 31.64 11/10/2015 9:48 AM CDT Body Mass Index documented in this encounter Progress Notes * Goyo Aguayo MD - 11/24/2015 8:29 PM CDT HISTORY OF PRESENT ILLNESS Era Viveros, a 74 y.o. female presents with a Chief Complaint of Follow Up; Results; Question; and Back Pain Subjective HPI here with feeling well. Stable [...] patient is nervous/anxious. Objective PHYSICAL EXAM BP 136/84 mmHg | Ht 4' 11.25" (1.505 m) | Wt 71.668 kg (158 lb) | BMI 31.64 kg/m 2 Physical Exam Constitutional: She is oriented to [...] reviewed. Lab Results Component Value Date/Time WBC 6.7 05/12/2015 01:27 PM HGB 12.8 05/12/2015 01:27 PM HCT 42.2 05/12/2015 01:27 PM PLT 193 05/12/2015 01:27 PM MCV 88.5 05/12/2015 01:27 PM Lab Results Component Value Date/Time NA 144 11/10/2015 08:29 AM K 3.8 11/10/2015 08:29 AM CL 106 11/10/2015 08:29 AM CO2 20* 11/10/2015 08:29 AM CA 9.1 11/10/2015 08:29 AM BUN 17 11/10/2015 08:29 AM CREAT 1.48* 11/10/2015 08:29 AM GLUCOSE 109* 11/10/2015 08:29 AM TOTALPROTEIN 7.1 11/10/2015 08:29 AM ALBUMIN 4.1 11/10/2015 08:29 AM BILITOTAL 0.2 11/10/2015 08:29 AM ALKPHOS 70 11/10/2015 08:29 AM AST 37* 11/10/2015 08:29 AM ALT 49* 11/10/2015 08:29 AM ANIONGAP 18 11/10/2015 08:29 AM BCRATIO 13.5 03/06/2012 07:50 AM Lab Results Component Value Date/Time HGBA1C 5.6 11/10/2015 08:29 AM Results for orders placed or performed during the hospital encounter of 05/12/15 XR CHEST PA AND LATERAL Narrative EXAM: Two view chest x-ray. CLINICAL INDICATION: Pneumonia. Shortness of breath. COMPARISON: Most recent 04/11/15 FINDINGS: Significant improvement in the appearance of the chest. Persistent cardiomegaly. Persistent moderate/large hiatal hernia. Vascularity is within normal limits. No new or inc reasing consolidating pulmonary infiltrates, pneumothorax, or significant pleural effusion are identif ied. Impression IMPRESSION: Significant improvement in the appearance of the chest. No evidence of consolida ting pneumonia, pneumothorax or significant pleural effusion. Moderate/large hiatal hernia. Card iomegaly without evidence of failure. Electronically Signed By: Ryan Otto MD, Signed On: 05/12/2015 2:01 PM Assessment ASSESSMENT and PLAN: ICD-10-CM ICD-9-CM 1. Essential hypertension I10 401.9 2. Primary osteoarthritis involving multiple joints M15.0 715.09 COMPREHENSIVE M ETABOLIC PANEL dexamethasone (DECADRON) injection 4 mg methylPREDNISolone acetate (DEPO-Medrol) injection 80 mg 3. Pure hypercholesterolemia E78.0 272.0 4. Prediabetes R73.09 790.29 HEMOGLOBIN A1C Current outpatient prescriptions: dicyclomine (BENTYL) 20 mg tablet, Take 1 Tab by mouth 4 times daily before meals and at bedtime., Disp: 120 Tablet, Rfl: 3 colchicine-probenecid (COLBENEMID) 0.5-500 mg Tablet, Take 1 Tab by mouth d aily., Disp: 60 Tablet, Rfl: 3 HYDROcodone-acetaminophen (NORCO) 5-325 mg tablet, Take 1 Tablet by mouth e very 4 hours as needed for Pain, Moderate., Disp: 120 Tablet, Rfl: 0 NIFEdipine (PROCARDIA XL) 30 mg Extended Release 24 hour tablet, Take 1 Tab by mouth 2 times daily., Disp: 60 Tablet, Rfl: 5 furosemide (LASIX) 20 mg tablet, Take 1 Tab by mouth daily., Disp: 30 Table t, Rfl: 5 metoprolol tartrate (LOPRESSOR) 25 mg tablet, Take 1 Tab by mouth 2 times d aily., Disp: 60 Tablet, Rfl: 5 ALPRAZolam (XANAX) 0.25 mg tablet, Take 1 Tablet (0.25 mg) by mouth 3 times daily as needed for Anxiety., Disp: 60 Tablet, Rfl: 3 ferrous sulfate [...] of Breath., Disp: 8.5 Gram, Rfl: 0 EVISTA 60 mg tablet, Take 1 Tab by mouth daily., Disp: 30 Tablet, Rfl: 11 0mega-3 fatty acids-vitamin E (FISH OIL) 1,000 [...] other day . , Disp: , Rfl: documented in this encounter Plan of Treatment Order Schedule Name Type Priority Associated Diag noses Expected: 02/08/2016, Expires: 7 HEMOGLOBIN A1C Lab Stat Prediabetes documented as of this encounter Results * COMPREHENSIVE METABOLIC PANEL (02/16/2016 8:16 AM CHIEF CONTROLLER CENTER) [facility] SODIUM 142 136 - 145 mmol/L [facility] - [place] POTASSIUM 3.8 3.5 - 5.1 mmol/L [facility] SERVICES - [facility] IN[facility] CHLORIDE 104 98 - 107 mmol/L [facility] [place] CO2 22 22 - 29 mmol/L [facility] [place] CALCIUM 9.2 8.8 - 10.2 mg/dL [facility] SERVICES - [facility] NIDU BUN 22 8 - 23 mg/dL [facility] - [place] CREATININE 1.69 (H) 0.51 - 0.95 mg/dL [facility] Comment: LABORATORY The GFR result is not SERVICES - [facility] clinically significant on [place] patients <18 or >70 years of age. GLUCOSE 107 (H) 70 - 100 mg/dL [facility] - [facility] [place] TOTAL PROTEIN 7.6 6.6 - 8.7 g/dL [facility] [place] ALBUMIN 4.1 3.5 - 5.2 g/dL [facility] SERVICES - [facility] IN[facility] BILIRUBIN TOTAL 0.3 <=1.2 mg/dL [facility] [place] ALKALINE 86 35 - 104 U/L [facility] SERVICES - [place] AST 50 (H) <=33 U/L [facility] SERVICES - [facility] IN[facility] ALT 60 (H) 10 - 35 U/L [facility] SERVICES - [facility] INDU GFR 30 mL/min/1.73 sq meter [facility] Comment: LABORATORY eGFR has not been validated [facility] for use in the elderly (> 70 [place] years of age), women, patients with serious [...] GFR result. GFR, 36 mL/min/1.73 sq meter [facility] - [place] ANION GAP 16 4 - 20 mmol/L [facility] [place] Specimen Blood Performing Organization Address City/State[facility] CLIA# [id number] [place] [address] - [place] [address] [place] [address] [address] documented in this encounter Visit Diagnoses Diagnosis Essential hypertension Unspecified essential hypertension Primary osteoarthritis involving multip le joints Pure hypercholesterolemia Prediabetes Other abnormal glucose documented in this encounter Administered Medications Action Date Dose Rate Site Medication Order MAR Action 11/10/2015 10:31 AM CDT 4 mg Left Upp er Outer Quadrant dexamethasone (DECADRON) injection 4 mg Given 4 mg, IM, ONE TIME ONLY, 1 dose, [facility] 11/10/15 at 1030, Routine 11/10/2015 10:31 AM CDT 80 mg Left Upp er Outer Quadrant methylPREDNISolone acetate (DEPO-Medrol) Given injection 80 mg 80 mg, IM, ONE TIME ONLY, 1 dose, [facility] 11/10/15 at 1030, Routine documented in this encounter
--- OUTSIDE RECORDS SUMMARY | 2019-08-19 16:05 | XMS REPORT | Encounter Summary ---
Author Author [facility] Organization [facility] Address Unknown Phone Unavailable Care Team Providers Care Traditional Chinese Herbalist Name Role Phone Carlotta Aguayo MD PCP Unavailable Reason for Visit * Reason Comments Medication Refill Encounter Details Care Team Description Date Type Department Carlotta Aguayo MD NO ADDRESS ON FILE 05/21/[address] [facility] [address] [address] Social History Date Tobacco Use Types Packs/Day Years Used Never Smoker Smokeless Tobacco: Never Used Drinks/Week oz/Week Comments Alcohol Use No Sex Assigned at Date Recorded Not on file documented as of this encounter Plan of Treatment Not on filedocumented as of this encounter Visit Diagnoses Not on filedocumented in this encounter
--- OUTSIDE RECORDS SUMMARY | 2019-08-19 16:05 | XMS REPORT | Encounter Summary ---
Author Author [facility] Organization [facility] Address Unknown Phone Unavailable Care Team Providers Care Exterior Door Installer Name Role Phone Carlotta Aguayo MD PCP Unavailable Encounter Details Care Team Description Date Type Department Carlotta Aguayo MD NO ADDRESS ON FILE Ftsc, Outpt Lab 11/10/2015 [facility] Outpatient Encounter Laboratory [address] [address] Social History Date Tobacco Use [...] Capsule mouth 2 times daily OMEGA RED. 10/10/2015 06/18/2016 dicyclomine (BENTYL) 20 Take 1 Tab by 120 Tablet 3 mg tablet mouth 4 times daily before meals and at bedtime. 08/15/2015 05/21/2016 colchicine-probenecid Take 1 Tab by 60 Tablet 3 (COLBENEMID) 0.5-500 mg mouth daily. Tablet 08/11/2015 02/16/2016 HYDROcodone-acetaminophen Take 1 Tablet 120 Tablet 0 (NORCO) 5-325 mg by mouth tabletIndications: every 4 hours Primary osteoarthritis as needed for involving multiple joints Pain, Moderate. 08/02/2015 01/25/2016 NIFEdipine (PROCARDIA XL) Take 1 Tab by 60 Tablet 5 30 mg Extended Release 24 mouth 2 times hour tablet daily. 07/13/2015 02/13/2016 furosemide (LASIX) 20 mg Take 1 Tab by 30 Tablet 5 tablet mouth daily. 07/13/2015 01/09/2016 metoprolol tartrate Take 1 Tab by 60 Tablet 5 (LOPRESSOR) 25 mg tablet mouth 2 times daily. 05/12/2015 02/16/2016 ALPRAZolam (XANAX) 0.25 Take 1 Tablet 60 Tablet 3 mg tabletIndications: (0.25 mg) by Anxiety mouth 3 times daily as needed for Anxiety. 01/03/2015 01/09/2016 EVISTA 60 mg tablet Take 1 Tab by 30 Tablet 11 mouth daily. 08/08/2017 lansoprazole (PREVACID) Take 15 [...] Date/Time Associated Diag nosis HEMOGLOBIN A1C Stat 11/10/2015 Prediabetes 8:29 AM CDT LIPID PANEL Stat 11/10/2015 Pure hyperchole sterolemia 8:29 AM CDT COMPREHENSIVE METABOLIC Stat 11/10/2015 Pure h ypercholesterolemia PANEL 8:29 AM CDT documented in this encounter Results * HEMOGLOBIN A1C (11/10/2015 8:29 AM CDT) HEMOGLOBIN A1C 5.6 4.8 - 5.9 % [facility] LABORATORY [facility] [place] EST. AVG 114 mg/dL [facility] GLUCOSE, A1C LABORATORY SERVICES - [place] Specimen Blood Performing Organization Address City/State/[facility] Ph one Number [facility] LABORATORY SERVICES CLIA# [id number] [place] [address] - [place] [address] * LIPID PANEL (11/10/2015 8:29 AM CDT) CHOLESTEROL 219 (H) <200 mg/dL [facility] [place] TRIGLYCERIDE 102 <150 mg/dL [facility] LABORATORY [facility] [place] HDL 90 (H) 40 - 59 mg/dL [facility] [place] LDL CALCULATED 109 (H) <100 mg/dL [facility] - [facility] INDU NON-HDL 129 <130 mg/dL [facility] CHOLESTEROL LAB[facility]ATORY SERVICES - [place] Specimen Blood Narrative Performed At TOTAL CHOLESTEROL mg/dL [facility] LABORATORY Desirable <200 SERVICES - [facility] Borderline high 200-239 INDU High >=240 TRIGLYCERIDES mg/dL Normal <150 Borderline high 150-199 High 200-499 Very high >=500 HDL CHOLESTEROL mg/dL Low <40 Normal 40-59 Desirable >=60 LDL CHOLESTEROL mg/dL Optimal <100 Low risk 100-129 Borderline high 130-159 High 160-189 Very high >=190 NON HDL CHOLESTEROL mg/dL Optimal <130 Near Optimal 130-159 Borderline High 160-189 High 190-219 Very high >=220 Based on AHA/NCEP Guidelines Performing Organization Address City/State/[facility] Ph one Number [facility] LABORATORY SERVICES CLIA# [id number] [place], [place] [address] - [place] [address] * COMPREHENSIVE METABOLIC PANEL (11/10/2015 8:29 AM CDT) SODIUM 144 136 - 145 mmol/L [facility] [place] POTASSIUM 3.8 3.5 - 5.1 mmol/L [facility] [place] CHLORIDE 106 98 - 107 mmol/L [facility]ATORY [facility] - [place] CO2 20 (L) 22 - 29 mmol/L [facility]ATORY SERVICES - [place] CALCIUM 9.1 8.8 - 10.2 mg/dL [facility] LABORATORY SERVICES - [place] BUN 17 8 - 23 mg/dL [facility]ATORY SERVICES - [place] CREATININE 1.48 (H) 0.51 - 0.95 mg/dL [facility] Comment: LABORATORY The GFR result is not SERVICES - [facility] clinically significant on INDU patients <18 or >70 years of age. GLUCOSE 109 (H) 70 - 100 mg/dL [facility] [place] TOTAL PROTEIN 7.1 6.6 - 8.7 g/dL [facility] LABORATORY SERVICES - [facility] INDU ALBUMIN 4.1 3.5 - 5.2 g/dL [facility] LABORATORY SERVICES - [place] BILIRUBIN TOTAL 0.2 <=1.2 mg/dL [facility] LABORATORY SERVICES - [place] ALKALINE 70 35 - 104 U/L [facility] PHOSPHATASE LABORATORY SERVICES - [place] AST 37 (H) <=33 U/L [facility] [place] ALT 49 (H) 10 - 35 U/L [facility] LABORATORY SERVICES - [place] GFR 34 mL/min/1.73 sq meter [facility] Comment: LABORATORY eGFR has not been validated [facility] for use in the elderly (> [...] please refer to the GFR result. GFR, 42 mL/min/1.73 sq meter [facility] LABORATORY SERVICES - [place] ANION GAP 18 4 - 20 mmol/L [facility] LABORATORY [facility] [place] Specimen Blood Performing Organization Address City/State/Zipcode Ph one Number [facility] LABORATORY SERVICES CLIA# [id number] [place] [address] - [place] [address] documented in this encounter Visit Diagnoses Diagnosis Pure hypercholesterolemia Prediabetes Other abnormal glucose documented in this encounter
--- OUTSIDE RECORDS SUMMARY | 2019-08-19 16:05 | XMS REPORT | Encounter Summary ---
Author Author [facility] Organization [facility] Address Unknown Phone Unavailable Care Team Providers Care Director Of It Operations Name Role Phone Carlotta Aguayo MD PCP Unavailable Reason for Visit * Auth/Cert Referred By Contact Referred To Contact Status Reason Specialty Diagnoses / Procedures [facility] Outpatient Laboratory Services [address] [place] [address] Laboratory Encounter Details Care Team Description Date Type Department Carlotta Aguayo MD NO ADDRESS ON FILE Ftsc, Outpt Lab 08/11/2015 [facility] Outpatient Encounter Laboratory [facility] [address] [place] [address] Social History Date Tobacco Use [...] Capsule mouth 2 times daily OMEGA RED. 08/11/2015 02/16/2016 HYDROcodone-acetaminophen Take 1 Tablet 120 [...] 3 times daily as needed for Anxiety. 04/14/2015 10/10/2015 dicyclomine (BENTYL) 20 Take 1 Tab by 120 Tablet 2 mg tablet mouth 4 times daily before meals and at bedtime. 04/14/2015 08/15/2015 colchicine-probenecid Take 1 Tab by 60 Tablet 1 (COLBENEMID) 0.5-500 mg mouth daily. Tablet 01/03/2015 01/09/2016 EVISTA 60 mg tablet Take [...] Date/Time Associated Diag nosis HEMOGLOBIN A1C Stat 08/11/2015 Prediabetes 8:40 AM CDT COMPREHENSIVE METABOLIC Stat 08/11/2015 [facility] hypertension PANEL 8:40 AM CDT Prediabetes documented in this encounter Results * HEMOGLOBIN A1C (08/11/2015 8:40 AM CDT) HEMOGLOBIN A1C 5.5 4.8 - 5.9 % [facility] LABORATORY SERVICES - [place] EST. AVG 111 mg/dL [facility] GLUCOSE, A1C LABORATORY SERVICES - [place] Specimen Blood Performing Organization Address City/State/[facility] Ph one Number [facility] LABORATORY SERVICES CLIA# [id number] [place] [address] - [place] [address] [facility] * COMPREHENSIVE METABOLIC PANEL (08/11/2015 8:40 AM CDT) SODIUM 143 136 - 145 mmol/L [facility] LAB[facility]ATORY SERVICES - [place] POTASSIUM 3.8 3.5 - 5.1 mmol/L [facility] LABORATORY SERVICES - [facility] INDU CHLORIDE 103 98 - 107 mmol/L [facility] [place] CO2 23 22 - 29 mmol/L [facility] LABORATORY SERVICES - [place] CALCIUM 9.5 8.8 - 10.2 mg/dL [facility] LAB[facility]ATORY SERVICES - [place] BUN 22 8 - 23 mg/dL [facility] LABORATORY SERVICES - [facility] INDU CREATININE 1.66 (H) 0.51 - 0.95 mg/dL [facility] Comment: LABORATORY The GFR result is not SERVICES - [facility] clinically significant on [place] patients <18 or >70 years of age. GLUCOSE 108 (H) 70 - 100 mg/dL [facility] LABORATORY SERVICES - [facility] INDU TOTAL PROTEIN 7.7 6.6 - 8.7 g/dL [facility] LABORATORY SERVICES - [place] ALBUMIN 4.1 3.5 - 5.2 g/dL [facility] LAB[facility]ATORY SERVICES - [place] BILIRUBIN TOTAL 0.2 <=1.2 mg/dL [facility] LABORATORY SERVICES - [place] ALKALINE 83 35 - 104 U/L [facility] PHOSPHATASE LABORATORY SERVICES - [place] AST 54 (H) <=33 U/L [facility]ATORY SERVICES - [place] ALT 62 (H) 10 - 35 U/L [facility]ORY SERVICES - [place] GFR 30 mL/min/1.73 sq meter [facility] Comment: LABORATORY eGFR has not been validated SERVICES - [facility] for use in the elderly (> 70 [place] years of age), women, patients with serious [...] GFR result. GFR, 37 mL/min/1.73 sq meter [facility] LAB[facility]ATORY SERVICES - [place] ANION GAP 17 4 - 20 mmol/L [facility] LAB[facility]ATORY SERVICES - [place] Specimen Blood Performing Organization Address City/State/[place] Ph one Number [facility] LABORATORY SERVICES CLIA# [id number] [place] [address] [place] [address] [place] [address] documented in this encounter Visit Diagnoses Diagnosis Essential hypertension Unspecified essential hypertension Prediabetes Other abnormal glucose documented in this encounter
--- OUTSIDE RECORDS SUMMARY | 2019-08-19 16:05 | XMS REPORT | Encounter Summary ---
Author Author [facility] Organization [facility] Address Unknown Phone Unavailable Care Team Providers Care Supervisor Plastering Name Role Phone Carlotta Aguayo MD PCP Unavailable Reason for Visit * Reason Comments Immunization/Injection Arthritis Encounter Details Care Team Description Date Type Department Nurse Dede Arthritis (Primary Dx) 01/24/2016 Immunization [facility] Prim[facility] y Care [address] [address] Social History Date Tobacco Use Types Packs/Day Years Used Never Smoker Smokeless Tobacco: Never Used Drinks/Week oz/Week Comments Alcohol Use No Sex Assigned at Date Recorded Not on file documented as of this encounter Plan of Treatment Not on filedocumented as of this encounter Visit Diagnoses Diagnosis Arthritis Arthropathy, unspecified, site unspecif ied documented in this encounter Administered Medications Action Date Dose Rate Site Medication Order MAR Action 01/24/2016 4:13 PM CDT 4 mg Left Upp er Outer Quadrant dexamethasone (DECADRON) injection 4 mg Given 4 mg, IM, ONE TIME ONLY, 1 dose, 01/24/16 at 1615, Routine 01/24/2016 4:13 PM CDT 80 mg Left Upp er Outer Quadrant methylPREDNISolone acetate (DEPO-Medrol) Given injection 80 mg 80 mg, IM, ONE TIME ONLY, 1 dose, 01/24/16 at 1615, Routine documented in this encounter
--- OUTSIDE RECORDS SUMMARY | 2019-08-19 16:05 | XMS REPORT | Encounter Summary ---
Author Author [facility] Organization [facility] Address Unknown Phone Unavailable Care Team Providers Care Environmental Services Lead Name Role Phone Carlotta Aguayo MD PCP Unavailable Reason for Visit * Reason Comments Medication Refill Encounter Details Care Team Description Date Type Department Carlotta Aguayo MD NO ADDRESS ON FILE 10/10/2015 Refill [facility] [address] [address] Social History Date Tobacco Use Types Packs/Day Years Used Never Smoker Smokeless Tobacco: Never Used Drinks/Week oz/Week Comments Alcohol Use No Sex Assigned at Date Recorded Not on file documented as of this encounter Plan of Treatment Not on filedocumented as of this encounter Visit Diagnoses Not on filedocumented in this encounter
--- OUTSIDE RECORDS SUMMARY | 2019-08-19 16:05 | XMS REPORT | Encounter Summary ---
Author Author [facility] Organization [facility] Address Unknown Phone Unavailable Care Team Providers Care Director Of Cardiopulmonary Services Name Role Phone Carlotta Aguayo MD PCP Unavailable Reason for Visit * Reason Comments Medication Refill Encounter Details Care Team Description Date Type Department Carlotta Aguayo MD NO ADDRESS ON FILE 01/09/2016 Refill [facility] [address] [address] Social History Date Tobacco Use Types Packs/Day Years Used Never Smoker Smokeless Tobacco: Never Used Drinks/Week oz/Week Comments Alcohol Use No Sex Assigned at Date Recorded Not on file documented as of this encounter Plan of Treatment Not on filedocumented as of this encounter Visit Diagnoses Not on filedocumented in this encounter
--- OUTSIDE RECORDS SUMMARY | 2019-08-19 16:05 | XMS REPORT | Encounter Summary ---
Author Author [facility] Organization [facility] Address Unknown Phone Unavailable Care Team Providers Care Audio Recording Engineer Name Role Phone Carlotta Aguayo MD PCP Unavailable Reason for Visit * Reason Comments Medication Refill Encounter Details Care Team Description Date Type Department Carlotta Aguayo MD NO ADDRESS ON FILE 08/15/2015 Refill [facility] [address] [address] Social History Date Tobacco Use Types Packs/Day Years Used Never Smoker Smokeless Tobacco: Never Used Drinks/Week oz/Week Comments Alcohol Use No Sex Assigned at Date Recorded Not on file documented as of this encounter Plan of Treatment Not on filedocumented as of this encounter Visit Diagnoses Not on filedocumented in this encounter
--- OUTSIDE RECORDS SUMMARY | 2019-08-19 16:05 | XMS REPORT | Encounter Summary ---
Author Author [facility] Organization [facility] Address Unknown Phone Unavailable Care Team Providers Care Product Owner Name Role Phone Carlotta Aguayo MD PCP Unavailable Encounter Details Care Team Description Date Type Department Jcarlos Lin MD [address] [place] [id number] Ftsc, Outpt Lab 03/16/2016 [facility] Outpatient Encounter Laboratory [address] [address] Social History Date Tobacco Use [...] Capsule mouth 2 times daily OMEGA RED. 02/16/2016 05/24/2016 HYDROcodone-acetaminophen Take 1 Tablet 120 Tablet 0 (NORCO) 5-325 mg by mouth tabletIndications: every 4 hours Primary osteoarthritis as needed for involving multiple joints Pain, Moderate. 02/16/2016 10/16/2017 ALPRAZolam (XANAX) 0.25 Take 1 [...] 3 (COLBENEMID) 0.5-500 mg mouth daily. Tablet 08/08/2017 lansoprazole (PREVACID) Take 15 mg by [...] Associated Diag nosis CBC WITH DIFFERENTIAL Stat 03/16/2016 Cough 9:20 AM REINFORCING BAR SETTER documented in this encounter Results * CBC WITH DIFFERENTIAL (03/16/2016 9:20 AM REINFORCING BAR SETTER) WBC 6.1 2.9 - 11.0 K/uL [facility] LABORAT[facility] [place] RBC 4.06 3.77 - 5.57 M/uL [facility] [place] HEMOGLOBIN 13.2 11.9 - 16.3 g/dL [facility] [place] HEMATOCRIT 41.0 34.4 - 51.6 % [facility] [place] MCV 100.8 82.4 - 103.2 fL [facility] [place] MCH 32.4 26.2 - 32.6 pg [facility] SERVICES [place] MCHC 32.1 30.2 - 35.0 g/dL [facility] [place] RDW 13.5 11.1 - 14.5 % [facility] [place] PLATELETS 174 137 - 410 K/uL [facility] [place] MPV 8.5 7.4 - 11.9 fL [facility] [place] NEUTROPHILS 70 43 - 73 % [facility] [place] LYMPHOCYTES 19 19 - 47 % [facility] [place] MONOCYTES 10 (H) 3 - 9 % [facility] [place] EOSINOPHILS 2 0 - 6 % [facility] [place] BASOPHILS 1 0 - 1 % [facility] [place] NEUTROPHIL 4.26 1.30 - 7.60 K/uL [facility] [place] LYMPHOCYTE 1.15 0.60 - 4.90 K/uL [facility] [place] MONOCYTE 0.59 0.10 - 0.90 K/uL [facility] [place] EOSINOPHIL 0.10 0.00 - 0.40 K/uL [facility] [place] BASOPHILS 0.03 0.00 - 0.10 K/uL [facility] [place] Specimen Blood Performing Organization Address City/State/Zipcode Ph one Number [facility] SERVICES CLIA# [id number] [place] [address] - [place] [address] [place] [address] documented in this encounter Visit Diagnoses Diagnosis Cough documented in this encounter
--- OUTSIDE RECORDS SUMMARY | 2019-08-19 16:05 | XMS REPORT | Encounter Summary ---
Author Author [facility] Organization [facility] Address Unknown Phone Unavailable Care Team Providers Care Plain Clothes Police Officer Name Role Phone Carlotta Aguayo MD PCP Unavailable Encounter Details Care Team Description Date Type Department Carlotta Aguayo MD NO ADDRESS ON FILE 08/18/[address] [phone] Social History Date Tobacco Use Types Packs/Day Years Used Never Smoker Smokeless Tobacco: Never Used Drinks/Week oz/Week Comments Alcohol Use No Sex Assigned at Date Recorded Not on file documented as of this encounter Plan of Treatment Not on filedocumented as of this encounter Visit Diagnoses Not on filedocumented in this encounter
--- OUTSIDE RECORDS SUMMARY | 2019-08-19 16:05 | XMS REPORT | Encounter Summary ---
Author Author [facility] Organization [facility] Address Unknown Phone Unavailable Care Team Providers Care Manager Sap Name Role Phone Carlotta Aguayo MD PCP Unavailable Reason for Visit * Reason Comments Medication Refill Encounter Details Care Team Description Date Type Department Carlotta Aguayo MD NO ADDRESS ON FILE 02/13/2016 Refill [facility] [address] [address] Social History Date Tobacco Use Types Packs/Day Years Used Never Smoker Smokeless Tobacco: Never Used Drinks/Week oz/Week Comments Alcohol Use No Sex Assigned at Date Recorded Not on file documented as of this encounter Plan of Treatment Not on filedocumented as of this encounter Visit Diagnoses Not on filedocumented in this encounter
--- OUTSIDE RECORDS SUMMARY | 2019-08-19 16:05 | XMS REPORT | Encounter Summary ---
Author Author [facility] Organization [facility] Address Unknown Phone Unavailable Care Team Providers Care Projection Welding Machine Operator Name Role Phone Carlotta Aguayo MD PCP Unavailable Reason for Visit * Reason Comments Follow Up 3 mos Results lab Medication Question discuss pneumonia shot Leg Pain left LOW BACK PAIN chronic Encounter Details Care Team Description Date Type Department Carlotta Aguayo MD NO ADDRESS ON FILE Essential hypertension (Primary Dx); Primary osteoarthritis involving multiple joints; Hyperglycemia 05/24/2016 Office Visit [address] [id number] Social History Date Tobacco Use Types Packs/Day Years Used Never Smoker Smokeless Tobacco: Never Used Drinks/Week oz/Week Comments Alcohol Use No Sex Assigned at Date Recorded Not on file documented as of this encounter Last Filed Vital Signs Reading Time Taken Comments Vital Sign 128/88 05/24/2016 9:46 AM BUTCHER HELPER Blood Pressure - - Pulse - - Temperature - - Respiratory Rate - - Oxygen Saturation - - Inhaled Oxygen Concentration 72.6 kg (160 lb) 05/24/2016 9:46 AM BUTCHER HELPER Weight 149.9 cm (4' 11") 05/24/2016 9:46 AM BUTCHER HELPER Height 32.32 05/24/2016 9:46 AM BUTCHER HELPER Body Mass Index documented in this encounter Progress Notes * Goyo Aguayo MD - 05/24/2016 10:41 AM BUTCHER HELPER HISTORY OF PRESENT ILLNESS Era Viveros, a 75 y.o. female presents with a Chief Complaint of Follow Up (3 mos); Results (lab); Medication Question (discuss pneumonia shot); Leg Pain ( left); and LOW BACK PAIN (chronic) Subjective HPI here with feeling well. Stable [...] The patient is nervous/anxious. Objective PHYSICAL EXAM Visit Vitals BP 128/88 Ht 4' 11" (1.499 m) Wt 72.6 kg (160 lb) BMI 32.32 kg/m2 Physical Exam Constitutional: She is oriented [...] Lab Results Component Value Date/Time NA 142 05/24/2016 08:41 AM K 3.5 05/24/2016 08:41 AM CL 103 05/24/2016 08:41 AM CO2 23 05/24/2016 08:41 AM CA 9.1 05/24/2016 08:41 AM BUN 16 05/24/2016 08:41 AM CREAT 1.61 (H) 05/24/2016 08:41 AM GLUCOSE 106 (H) 05/24/2016 08:41 AM TOTALPROTEIN 7.1 05/24/2016 08:41 AM ALBUMIN 4.0 05/24/2016 08:41 AM BILITOTAL 0.2 05/24/2016 08:41 AM ALKPHOS 77 05/24/2016 08:41 AM AST 51 (H) 05/24/2016 08:41 AM ALT 51 (H) 05/24/2016 08:41 AM ANIONGAP 16 05/24/2016 08:41 AM BCRATIO 13.5 03/06/2012 07:50 AM Lab Results Component Value Date/Time HGBA1C 5.2 05/24/2016 08:41 AM Results for orders placed or performed [...] hypertension I10 401.9 COMPREHENSIVE METABOLIC PANEL 2. Primary osteoarthritis involving multiple joints M15.0 715.09 HYDROcodone-belkis taminophen (NORCO) 5-325 mg tablet dexamethasone (DECADRON) injection 4 mg methylPREDNISolone acetate (DEPO-Medrol) injection 80 mg 3. Hyperglycemia R73.9 790.29 HEMOGLOBIN A1C Current Outpatient Prescriptions: HYDROcodone-acetaminophen (NORCO) 5-325 mg tablet, Take 1 Tablet by mouth e very 4 hours as needed for Pain, Moderate., Disp: 120 Tablet, Rfl: 0 probenecid-colchicine (COLBENEMID) 0.5-500 mg Tablet, Take 1 Tab by mouth d aily. (Patient taking differently: Take 1 Tab by mouth daily to qod), Disp: 60 T ablet, Rfl: 2 meclizine (ANTIVERT) 25 mg tablet, Take [...] at bedtime., Disp: 120 Tablet, Rfl: 3 ferrous sulfate (FEOSOL) 325 [...] other day . , Disp: , Rfl: [DISCONTINUED] HYDROcodone-acetaminophen (NORCO) 5-325 mg tablet, Take 1 Ta blet by mouth every 4 hours as needed for Pain, Moderate., Disp: 120 Tablet, Rfl : 0 Current Facility-Administered Medications: [COMPLETED] dexamethasone (DECADRON) injection 4 mg, 4 mg, IM, ONCE, Goyo Aguayo MD, 4 mg at 05/24/16 1032 [COMPLETED] methylPREDNISolone acetate (DEPO-Medrol) injection 80 mg, 80 mg , IM, ONCE, Goyo Aguayo MD, 80 mg at 05/24/16 1032 HER HELPER documented in this encounter Plan of Treatment Not on filedocumented as of this encounter Results * HEMOGLOBIN A1C (08/30/2016 8:17 AM CDT) HEMOGLOBIN A1C 5.5 4.8 - 5.9 % [facility] [place] EST. AVG 111 mg/dL [facility] GLUCOSE, A1C LABORATORY SERVICES - [facility] INDU Specimen Blood Performing Organization Address City/State/[facility] Ph one Number [facility] CLIA# [id number] [place], [place] [address] [place] [address] [facility] * COMPREHENSIVE METABOLIC PANEL (08/30/2016 8:17 AM CDT) SODIUM 142 136 - 145 mmol/L [facility] [place] POTASSIUM 3.9 3.5 - 5.1 mmol/L [facility] [place] CHLORIDE 103 98 - 107 mmol/L [facility] INDU CO2 22 22 - 29 mmol/L [facility] INDU CALCIUM 8.9 8.8 - 10.2 mg/dL [facility] INDU BUN 18 8 - 23 mg/dL [facility] LABORATORY SERVICES - [facility] INDU CREATININE 1.66 (H) 0.51 - 0.95 mg/dL [facility] Comment: LABORATORY The GFR result is not SERVICES - [facility] clinically significant on [place] patients <18 or >70 years of age. GLUCOSE 118 (H) 70 - 100 mg/dL [facility] [place] TOTAL PROTEIN 7.2 6.6 - 8.7 g/dL [facility] INDU ALBUMIN 4.0 3.5 - 5.2 g/dL [facility] BILIRUBIN TOTAL 0.2 <=1.2 mg/dL [facility] [place] ALKALINE 82 35 - 104 U/L [facility] [place] AST 44 (H) <=33 U/L [facility] [place] ALT 46 (H) 10 - 35 U/L [facility] [place] GFR 30 mL/min/1.73 sq meter [facility] Comment: LABORATORY eGFR has not been validated SERVICES - [facility] for use in the elderly (> [...] GFR result. GFR, 37 mL/min/1.73 sq meter [facility]ATORY [facility] - [place] ANION GAP 17 4 - 20 mmol/L [facility] LAB[facility] [place] Specimen Blood Performing Organization Address City/State/[facility] Ph one Number [facility] CLIA# [id number] [place] [address] [place] [address] [place] [address] documented in this encounter Visit Diagnoses Diagnosis Primary osteoarthritis involving multip le joints Essential hypertension Unspecified essential hypertension Hyperglycemia Other abnormal glucose documented in this encounter Administered Medications Action Date Dose Rate Site Medication Order MAR Action 05/24/2016 10:32 AM BUTCHER HELPER 4 mg Left Upp er Outer Quadrant dexamethasone (DECADRON) injection 4 mg Given 4 mg, IM, ONE TIME ONLY, 1 dose, Nathaly 05/24/16 at 1015, Routine 05/24/2016 10:32 AM BUTCHER HELPER 80 mg Left Upp er Outer Quadrant methylPREDNISolone acetate (DEPO-Medrol) Given injection 80 mg 80 mg, IM, ONE TIME ONLY, 1 dose, Nathaly 05/24/16 at 1015, Routine documented in this encounter
--- OUTSIDE RECORDS SUMMARY | 2019-08-19 16:05 | XMS REPORT | Encounter Summary ---
Author Author [facility] Organization [facility] Address Unknown Phone Unavailable Care Team Providers Care Household Assistant Name Role Phone Carlotta Aguayo MD PCP Unavailable Reason for Visit * Reason Comments Cough Encounter Details Care Team Description Date Type Department Jcarlos Lin MD [address] [place] [address] Cough (Primary Dx) 03/16/2016 Office Visit [facility] Primar [address] [phone] Social History Date Tobacco Use Types Packs/Day Years Used Never Smoker Smokeless Tobacco: Never Used Drinks/Week oz/Week Comments Alcohol Use No Sex Assigned at Date Recorded Not on file documented as of this encounter Last Filed Vital Signs Reading Time Taken Comments Vital Sign 130/96 03/16/2016 8:54 AM PLATE DRILLER Blood Pressure - - Pulse 37.8 C (100.1 F) 03/16/2016 8:54 AM PLATE DRILLER Temperature - - Respiratory Rate - - Oxygen Saturation - - Inhaled Oxygen Concentration 72.6 kg (160 lb) 03/16/2016 8:54 AM PLATE DRILLER Weight 149.9 cm (4' 11") 03/16/2016 8:54 AM PLATE DRILLER Height 32.32 03/16/2016 8:54 AM PLATE DRILLER Body Mass Index documented in this encounter Progress Notes * Jcarlos Lin MD - 03/16/2016 9:45 AM PLATE DRILLER Era Viveros is a 75 y.o. female Chief Complaint Patient presents with Cough History of Present Illness HPI Subjective fever but pt most worried because of prior pneumonia 10 months ago Reports being on oxygen still at night despite no h/o chronic lung disease or pr ior smoking Review of Systems Review of Systems Constitutional: Positive for chills and fever. Negative for unexpected weight ch alphonse. Respiratory: Positive for cough. Negative for shortness of breath. Cardiovascular: Negative for chest pain. Gastrointestinal: Negative for constipation and diarrhea. Genitourinary: Negative for hematuria and urgency. Musculoskeletal: Negative for arthralgias. Hematological: Negative for adenopathy. Physical Exam Blood pressure (!) 130/96, temperature 100.1 F (37.8 C), height 4' 11" (1.4 99 m), weight 72.6 kg (160 lb). Physical Exam Constitutional: She appears well-developed and well-nourished. HENT: Head: Normocephalic and atraumatic. Eyes: Pupils are equal, round, and reactive to light. Neck: Normal range of motion. No thyromegaly present. Cardiovascular: Normal rate and regular rhythm. Pulmonary/Chest: Effort normal. She has no wheezes. She has no rales (rhonchi di ffusely and decreased air movement all lung grant). Abdominal: Soft. Bowel sounds are normal. ASSESSMENT: Encounter Diagnosis Name Primary? Cough Yes PLAN: Orders Placed This Encounter XR CHEST PA AND LATERAL CBC WITH DIFFERENTIAL If lab and cxr reassuring will treat symptomatically with oral steroids Pt advised to report symptoms beyond 7 days with fever as may still need empiric antibiotics at that time E DRILLER documented in this encounter Plan of Treatment Not on filedocumented as of this encounter Results * XR CHEST PA AND LATERAL (03/16/2016 9:25 AM PLATE DRILLER) Specimen Impressions Performed At IMPRESSION: INTERFACE SYSTEM No focal consolidation Narrative Performed At PA and LATERAL Chest Radiographs 03/16/2016 9:25 AM INTERFACE SYSTEM HISTORY: 75 years Female presents wit h cough COMPARISON: May 12, 2015 FINDINGS: The lungs are clear. There is no pleu ral effusion or pneumothorax. The heart, pulmonary vasculature, and m ediastinum are normal. There is no free air under the diaphrag m. There is a moderate-sized hiatal hernia. Procedure Note Srikanth, [facility] Incoming Radiology Results - 03/16/2016 9:32 AM PLATE DRILLER PA and LATERAL Chest Radiographs 03/16/2016 9:25 AM HISTORY: 75 years Female presents with cough COMPARISON: May 12, 2015 FINDINGS: The lungs are clear. There is no pleural effusion or pneumothorax. The heart, pulmonary vasculature, and mediastinum are normal. There is no free air under the diaphragm. There is a moderate-sized hiatal hernia. IMPRESSION IMPRESSION: No focal consolidation Performing Organization Address City/State/Zipcode Ph one Number INTERFACE SYSTEM INTERFACE SYSTEM Refer to clinic/hospital department * CBC WITH DIFFERENTIAL (03/16/2016 9:20 AM PLATE DRILLER) WBC 6.1 2.9 - 11.0 K/uL [facility] [place] RBC 4.06 3.77 - 5.57 M/uL [facility] [place] HEMOGLOBIN 13.2 11.9 - 16.3 g/dL [facility] [place] HEMATOCRIT 41.0 34.4 - 51.6 % [facility] [place] MCV 100.8 82.4 - 103.2 fL [facility] [place] MCH 32.4 26.2 - 32.6 pg [facility] [place] MCHC 32.1 30.2 - 35.0 g/dL [facility] [place] RDW 13.5 11.1 - 14.5 % [facility] [place] PLATELETS 174 137 - 410 K/uL [facility] [place] MPV 8.5 7.4 - 11.9 [...] one Number [facility] CLIA# [id number] [place], [place] [address] [place] [address] [place] [address] documented in this encounter Visit Diagnoses Diagnosis Cough documented in this encounter
--- OUTSIDE RECORDS SUMMARY | 2019-08-19 16:05 | XMS REPORT | Encounter Summary ---
Author Author [facility] Organization [facility] Address Unknown Phone Unavailable Care Team Providers Care Rn Transplant Name Role Phone Carlotta Aguayo MD PCP Unavailable Reason for Visit * Reason Comments Medication Refill Encounter Details Care Team Description Date Type Department Carlotta Aguayo MD NO ADDRESS ON FILE 01/25/2016 Refill [facility] [address] [phone] Social History Date Tobacco Use Types Packs/Day Years Used Never Smoker Smokeless Tobacco: Never Used Drinks/Week oz/Week Comments Alcohol Use No Sex Assigned at Date Recorded Not on file documented as of this encounter Plan of Treatment Not on filedocumented as of this encounter Visit Diagnoses Not on filedocumented in this encounter
--- OUTSIDE RECORDS SUMMARY | 2019-08-19 16:05 | XMS REPORT | Encounter Summary ---
Author Author [facility] Organization [facility] Address Unknown Phone Unavailable Care Team Providers Care Machine Stamper Name Role Phone Carlotta Aguayo MD PCP Unavailable Encounter Details Care Team Description Date Type Department Carlotta Aguayo MD NO ADDRESS ON FILE 12/08/[address] [phone] Social History Date Tobacco Use Types Packs/Day Years Used Never Smoker Smokeless Tobacco: Never Used Drinks/Week oz/Week Comments Alcohol Use No Sex Assigned at Date Recorded Not on file documented as of this encounter Plan of Treatment Not on filedocumented as of this encounter Visit Diagnoses Not on filedocumented in this encounter
--- OUTSIDE RECORDS SUMMARY | 2019-08-19 16:05 | XMS REPORT | Encounter Summary ---
Author Author [facility] Organization [facility] Address Unknown Phone Unavailable Care Team Providers Care Consultants Intern Name Role Phone Carlotta Aguayo MD PCP Unavailable Encounter Details Care Team Description Date Type Department Jcarlos Lin MD [address] [place] [facility] [place] [phone] 03/16/2016 [facility] Encounter [address] [phone] Social History Date Tobacco Use [...] Name Priority Date/Time Associated Diag nosis XR CHEST PA AND LATERAL 2 Stat 03/16/2016 Coug h VW 9:25 AM COMMUNITY ARTS CENTRE MANAGER documented in this encounter Results * XR CHEST PA AND LATERAL (03/16/2016 9:25 AM COMMUNITY ARTS CENTRE MANAGER) Specimen Impressions Performed At IMPRESSION: INTERFACE SYSTEM [...] is a moderate-sized hiatal hernia. Procedure Note Interface, [facility] A[facility] Incoming Radiology Results - 03/16/2016 9:32 AM COMMUNITY ARTS CENTRE MANAGER PA and LATERAL Chest Radiographs 03/16/2016 9:25 [...]
--- OUTSIDE RECORDS SUMMARY | 2019-08-19 16:05 | XMS REPORT | Encounter Summary ---
Author Author [facility] Organization [facility] Address Unknown Phone Unavailable Care Team Providers Care Vp Of Product Name Role Phone Carlotta Aguayo MD PCP Unavailable Encounter Details Care Team Description Date Type Department Carlotta Aguayo MD NO ADDRESS ON FILE Ftsc, Outpt Lab 02/16/2016 [facility] Outpatient Encounter Laboratory [address] [phone] Social History Date Tobacco Use [...] populate with time. for 1 Occurrences starting 02/16/2016 until 02/16/2016 HEMOGLOBIN A1C Lab Stat Prediabetes documented as of this encounter Procedures Comments Procedure Name Priority Date/Time Associated Diag nosis HEMOGLOBIN A1C Stat 02/16/2016 Elevated glucos e 8:16 AM PNEUMATIC DRUM SANDER COMPREHENSIVE METABOLIC Stat 02/16/2016 Primar y osteoarthritis PANEL 8:16 AM PNEUMATIC DRUM SANDER involving multiple joints documented in this encounter Results * HEMOGLOBIN A1C (02/16/2016 8:16 AM PNEUMATIC DRUM SANDER) HEMOGLOBIN A1C 5.6 4.8 - 5.9 % [facility] [place] EST. AVG 114 mg/dL [facility] GLUCOSE, A1C LAB[facility]ATORY SERVICES - [place] Specimen Blood Performing Organization Address City/State/[facility] Ph one Number [facility] CLIA# [id number] [place], [place] [address] [place] [address] [facility] * COMPREHENSIVE METABOLIC PANEL (02/16/2016 8:16 AM PNEUMATIC DRUM SANDER) SODIUM 142 136 - 145 mmol/L [facility] [place] POTASSIUM 3.8 3.5 - 5.1 mmol/L [facility] [place] CHLORIDE 104 98 - 107 mmol/L [facility] [place] [facility] CO2 22 22 - 29 mmol/L [facility] [place] CALCIUM 9.2 8.8 - 10.2 mg/dL [facility] [place] BUN 22 8 - 23 mg/dL [facility] [place] CREATININE 1.69 (H) 0.51 - 0.95 mg/dL [facility] Comment: LABORATORY The GFR result is not SERVICES - [facility] clinically significant on INDU patients <18 or >70 years of age. GLUCOSE 107 (H) 70 - 100 mg/dL [facility] [place] TOTAL PROTEIN 7.6 6.6 - 8.7 g/dL [facility] [place] ALBUMIN 4.1 3.5 - 5.2 g/dL [facility] [place] BILIRUBIN TOTAL 0.3 <=1.2 mg/dL [facility] [place] ALKALINE 86 35 - 104 U/L [facility] [place] AST 50 (H) <=33 U/L [facility] [place] ALT 60 (H) 10 - 35 U/L [facility] [place] GFR 30 mL/min/1.73 sq meter [facility] Comment: LABORATORY eGFR has not been validated SERVICES - [facility] for use in the elderly (> [...] GFR result. GFR, 36 mL/min/1.73 sq meter [facility] QATARI LABORATORY [facility] - [place] ANION GAP 16 4 - 20 mmol/L [facility] LAB[facility] - [place] Specimen Blood Performing Organization Address City/State/[facility] [place] Ph one Number [facility] CLIA# [id number] KRISTA LAUREN [address] [place] IN[place] [address] documented in this encounter Visit Diagnoses Diagnosis Primary osteoarthritis involving multip le joints Prediabetes Other abnormal glucose Elevated glucose Other abnormal glucose documented in this encounter
--- OUTSIDE RECORDS SUMMARY | 2019-08-19 16:06 | XMS REPORT | Encounter Summary ---
Author Author [facility] Organization [facility] Address Unknown Phone Unavailable Care Team Providers Care Boilermaker Welder Name Role Phone Carlotta Aguayo MD PCP Unavailable Reason for Visit * Reason Comments Follow Up 2 week Results lab Results cxr Medication Refill xanax Encounter Details Care Team Description Date Type Department Carlotta Aguayo MD NO ADDRESS ON FILE Essential hypertension (Primary Dx); Primary osteoarthritis involving multiple joints; Prediabetes; Pneumonia, organism unspecified, unspecified laterality, unspecified part of lung; Anxiety 05/12/2015 Office Visit [address] [address] Social History Date Tobacco Use Types Packs/Day Years Used Never Smoker Smokeless Tobacco: Never Used Drinks/Week oz/Week Comments Alcohol Use No Sex Assigned at Date Recorded Not on file documented as of this encounter Last Filed Vital Signs Reading Time Taken Comments Vital Sign 124/76 05/12/2015 2:56 PM SENIOR PROPERTY ACCOUNTANT Blood Pressure - - Pulse - - Temperature - - Respiratory Rate - - Oxygen Saturation - - Inhaled Oxygen Concentration 68.9 kg (152 lb) 05/12/2015 2:56 PM SENIOR PROPERTY ACCOUNTANT Weight 157.5 cm (5' 2") 05/12/2015 2:56 PM SENIOR PROPERTY ACCOUNTANT Height 27.8 05/12/2015 2:56 PM SENIOR PROPERTY ACCOUNTANT Body Mass Index documented in this encounter Progress Notes * Goyo Aguayo MD - 06/06/2015 8:05 AM SENIOR PROPERTY ACCOUNTANT HISTORY OF PRESENT ILLNESS Era Viveros, a 74 y.o. female presents with a Chief Complaint of Follow Up; Results; and Medication Refill Subjective HPI here with follow up pneumonia. Stable hypertension and prediabetes. 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 Increased issues of anxiety. REVIEW OF SYSTEMS Review of Systems Constitutional: [...] patient is nervous/anxious. Objective PHYSICAL EXAM BP 124/76 mmHg | Ht 5' 2" (1.575 m) | Wt 68.947 kg (152 lb) | BMI 27.79 kg/m2 Physical Exam Constitutional: She is oriented [...] Lab Results Component Value Date/Time NA 144 04/28/2015 07:32 AM K 3.6 04/28/2015 07:32 AM CL 108* 04/28/2015 07:32 AM CO2 23 04/28/2015 07:32 AM CA 9.2 04/28/2015 07:32 AM BUN 15 04/28/2015 07:32 AM CREAT 1.61* 04/28/2015 07:32 AM GLUCOSE 105* 04/28/2015 07:32 AM TOTALPROTEIN 7.0 04/28/2015 07:32 AM ALBUMIN 3.6 04/28/2015 07:32 AM BILITOTAL 0.2 04/28/2015 07:32 AM ALKPHOS 66 04/28/2015 07:32 AM AST 30 04/28/2015 07:32 AM ALT 30 04/28/2015 07:32 AM ANIONGAP 13 04/28/2015 07:32 AM BCRATIO 13.5 03/06/2012 07:50 AM Lab Results Component Value Date/Time HGBA1C 5.5 04/28/2015 07:32 AM Results for orders placed or performed [...] 05/12/2015 2:01 PM Assessment ASSESSMENT and PLAN: ICD-9-CM ICD-10-CM 1. Essential hypertension 401.9 I10 COMPREHENSIVE METABOLIC PANEL 2. Primary osteoarthritis involving multiple joints 715.09 M15.0 3. Prediabetes 790.29 R73.09 COMPREHENSIVE METABOLIC PANEL HEMOGLOBIN A1C 4. Pneumonia, organism unspecified, unspecified laterality, unspecified part of lung 486 J18.9 5. Anxiety 300.00 F41.9 ALPRAZolam (XANAX) 0.25 mg tablet Current outpatient prescriptions: ALPRAZolam (XANAX) 0.25 mg tablet, Take 1 Tablet (0.25 mg) by mouth 3 times daily as needed for Anxiety., Disp: 60 Tablet, Rfl: 3 dicyclomine (BENTYL) 20 mg tablet, Take 1 Tab by mouth 4 times daily before meals and at bedtime., Disp: 120 Tablet, Rfl: 2 furosemide (LASIX) 20 mg tablet, Take 1 Tab by mouth daily., Disp: 30 Table t, Rfl: 2 colchicine-probenecid (COLBENEMID) 0.5-500 mg Tablet, Take 1 Tab by mouth d aily., Disp: 60 Tablet, Rfl: 1 ferrous sulfate (FEOSOL) 325 mg (65 mg iron) tablet, Take 1 Tablet (325 mg) by mouth 2 times daily., Disp: 60 Tablet, Rfl: 3 oxygen home delivery, Face to Face completed within 30 days: yes Length of Need: 99 months By: Nasal Cannula continuously at 2 L/min.. (Patient taking d ifferently: Face to Face completed within 30 days: yes Length of Need: 99 month At hs By: Nasal Cannula continuously at 2 L/min.. ), Disp: 1 Each, Rfl: 0 albuterol HFA 90 mcg inhaler, Take 2 Puffs by inhalation every 6 hours as n eeded for Shortness of Breath., Disp: 8.5 Gram, Rfl: 0 NIFEdipine (PROCARDIA XL) 30 mg Extended Release 24 hour tablet, Take 1 Tab by mouth 2 times daily., Disp: 60 Tablet, Rfl: 5 metoprolol tartrate (LOPRESSOR) 25 mg tablet, Take 1 Tab by mouth 2 times d aily., Disp: 60 Tablet, Rfl: 5 EVISTA 60 mg tablet, Take 1 Tab by mouth daily., Disp: 30 Tablet, Rfl: 11 HYDROcodone-acetaminophen (NORCO) 5-325 mg tablet, Take 1 Tablet by mouth e very 4 hours as needed for Pain, Moderate., Disp: 90 Tablet, Rfl: 0 0mega-3 fatty acids-vitamin E (FISH OIL) 1,000 mg Capsule, Take 1 Capsule b y mouth daily OMEGA RED. , Disp: , Rfl: lansoprazole (PREVACID) 15 mg Oral CpDR, Take 15 mg by mouth 1 time daily a s needed . , Disp: , Rfl: aspirin (BABY ASPIRIN) 81 mg Oral Chew, Take 81 mg by mouth every other day . , Disp: , Rfl: OR PROPERTY ACCOUNTANT documented in this encounter Plan of Treatment Not on filedocumented as of this encounter Results * HEMOGLOBIN A1C (08/11/2015 8:40 AM CDT) HEMOGLOBIN A1C 5.5 4.8 - 5.9 % [facility] [place] [facility] EST. AVG 111 mg/dL [facility] GLUCOSE, A1C [facility] [place] Specimen Blood Performing Organization Address City/State/Zipcode Ph one Number [facility] CLIA# [id number] [place] [address] [place] [address] [facility] * COMPREHENSIVE METABOLIC PANEL (08/11/2015 8:40 AM CDT) SODIUM 143 136 - 145 mmol/L [facility] [place] [facility] POTASSIUM 3.8 3.5 - 5.1 mmol/L [facility] [place] CHLORIDE 103 98 - 107 mmol/L [facility] [place] CO2 23 22 - 29 mmol/L [facility] [place] CALCIUM 9.5 8.8 - 10.2 mg/dL [facility] [place] BUN 22 8 - 23 mg/dL [facility] [place] [facility] CREATININE 1.66 (H) 0.51 - 0.95 mg/dL [facility] Comment: LABORATORY The GFR result is not [facility] clinically significant on [place] patients <18 or >70 years of age. GLUCOSE 108 (H) 70 - 100 mg/dL [facility] [place] TOTAL PROTEIN 7.7 6.6 - 8.7 g/dL [facility] [place] ALBUMIN 4.1 3.5 - 5.2 g/dL [facility] [place] BILIRUBIN TOTAL 0.2 <=1.2 mg/dL [facility] [place] ALKALINE 83 35 - 104 U/L [facility] [place] AST 54 (H) <=33 U/L [facility] [place] [facility] ALT 62 (H) 10 - 35 U/L [facility] [place] GFR 30 mL/min/1.73 sq meter [facility] Comment: LABORATORY eGFR has not been validated [facility] for use in the elderly (> 70 [place] years of age), women, patients with serious [...] GFR result. GFR, 37 mL/min/1.[address] [facility] [place] ANION GAP 17 4 - 20 mmol/L [facility] [place] Specimen Blood Performing Organization Address City/State/Zipcode Ph one Number [facility] CLIA# [id number] [place] [address] [place] [address] [facility] documented in this encounter Visit Diagnoses Diagnosis Essential hypertension Unspecified essential hypertension Primary osteoarthritis involving multip le joints Prediabetes Other abnormal glucose Pneumonia, organism unspecified, unspec ified laterality, unspecified part of lung Anxiety Anxiety state, unspecified documented in this encounter
--- OUTSIDE RECORDS SUMMARY | 2019-08-19 16:06 | XMS REPORT | Encounter Summary ---
Author Author [facility] Organization [facility] Address Unknown Phone Unavailable Care Team Providers Care Vice President Planning Name Role Phone Carlotta Aguayo MD PCP Unavailable Reason for Visit * Auth/Cert Referred By Contact Referred To Contact Status Reason Specialty Diagnoses / Procedures [facility] [address] [place] [address] Radiology Encounter Details Care Team Description Date Type Department Carlotta Aguayo MD NO ADDRESS ON FILE Ftsc, Outpt Lab 05/12/2015 [facility] Outpatient Encounter Laboratory [address] [address] Social History Date Tobacco Use [...] Capsule mouth 2 times daily OMEGA RED. 05/12/2015 02/16/2016 ALPRAZolam (XANAX) 0.25 Take 1 Tablet 60 Tablet 3 mg tabletIndications: (0.25 mg) by Anxiety mouth 3 times daily as needed for Anxiety. 04/14/2015 10/10/2015 dicyclomine (BENTYL) 20 Take 1 Tab by 120 Tablet 2 mg tablet mouth 4 times daily before meals and at bedtime. 04/14/2015 07/13/2015 furosemide (LASIX) 20 mg Take 1 Tab by 30 Tablet 2 tablet mouth daily. 04/14/2015 08/15/2015 colchicine-probenecid Take 1 Tab by 60 Tablet 1 (COLBENEMID) 0.5-500 mg mouth daily. Tablet 01/17/2015 08/01/2015 NIFEdipine (PROCARDIA XL) Take 1 Tab by 60 Tablet 5 30 mg Extended Release 24 mouth 2 times hour tablet daily. 01/03/2015 07/13/2015 metoprolol tartrate Take 1 Tab by 60 Tablet 5 (LOPRESSOR) 25 mg tablet mouth 2 times daily. 01/03/2015 01/09/2016 EVISTA 60 mg tablet Take 1 Tab by 30 Tablet 11 mouth daily. 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 08/08/2017 lansoprazole (PREVACID) Take 15 mg by [...] Associated Diag nosis CBC WITH DIFFERENTIAL Stat 05/12/2015 Pneumoni a of both lower 1:27 PM GUIDE TOUR lobes due to infectious organism documented in this encounter Results * CBC WITH DIFFERENTIAL (05/12/2015 1:27 PM GUIDE TOUR) WBC 6.7 2.9 - 11.0 K/uL [facility] [place] RBC 4.76 3.77 - 5.57 M/uL [facility] [place] HEMOGLOBIN 12.8 11.9 - 16.3 g/dL [facility] [place] HEMATOCRIT 42.2 34.4 - 51.6 % [facility] [place] MCV 88.5 82.4 - 103.2 fL [facility] [place] MCH 27.0 26.2 - 32.6 pg [facility] [place] MCHC 30.5 30.2 - 35.0 g/dL [facility] [place] RDW 20.3 (H) 11.1 - 14.5 % [facility] [place] PLATELETS 193 137 - 410 K/uL [facility] [place] MPV 8.3 7.4 - 11.9 fL [facility] [place] NEUTROPHILS 59 43 - 73 % [facility] [place] LYMPHOCYTES 32 19 - 47 % [facility] [place] [facility] MONOCYTES 7 3 - 9 % [facility] [place] EOSINOPHILS 3 0 - 6 % [facility] [place] BASOPHILS 0 0 - 1 % [facility] [place] NEUTROPHIL 3.91 1.30 - 7.60 K/uL [facility] [place] LYMPHOCYTE 2.12 0.60 - 4.90 K/uL [facility] [place] MONOCYTE 0.46 0.10 - 0.90 K/uL [facility] [place] EOSINOPHIL 0.17 0.00 - 0.40 K/uL [facility] [place] BASOPHILS 0.02 0.00 - 0.10 K/uL [facility] [place] Specimen Blood Performing Organization Address City/State/Zipcoin Ph one Number [facility] CLIA# [id number] [place] [address] [place] [address] [facility] documented in this encounter Visit Diagnoses Diagnosis Pneumonia of both lower lobes due to in fectious organism documented in this encounter
--- OUTSIDE RECORDS SUMMARY | 2019-08-19 16:06 | XMS REPORT | Encounter Summary ---
Author Author [facility] Organization [facility] Address Unknown Phone Unavailable Care Team Providers Care Windows Software Engineer Name Role Phone Carlotta Aguayo MD PCP Unavailable Reason for Visit * Reason Comments Medication Refill Encounter Details Care Team Description Date Type Department Carlotta Aguayo MD NO ADDRESS ON FILE 07/13/2015 Refill [facility] [address] [address] Social History Date Tobacco Use Types Packs/Day Years Used Never Smoker Smokeless Tobacco: Never Used Drinks/Week oz/Week Comments Alcohol Use No Sex Assigned at Date Recorded Not on file documented as of this encounter Plan of Treatment Not on filedocumented as of this encounter Visit Diagnoses Not on filedocumented in this encounter
--- OUTSIDE RECORDS SUMMARY | 2019-08-19 16:06 | XMS REPORT | Encounter Summary ---
Author Author [facility] Organization [facility] Address Unknown Phone Unavailable Care Team Providers Care Set Up Operator Name Role Phone Carlotta Aguayo MD PCP Unavailable Reason for Visit * Reason Comments Follow Up 3 mos Results lab [facility] Check pneumonia Encounter Details Care Team Description Date Type Department Carlotta Aguayo MD NO ADDRESS ON FILE Pneumonia of both lower lobes due to inf ectious organism (Primary Dx); Essential hypertension; Primary osteoarthritis involving multiple joints; Pure hypercholesterolemia; Prediabetes 04/28/2015 Office Visit [facility] [address] [address] Social History Date Tobacco Use Types Packs/Day Years Used Never Smoker Smokeless Tobacco: Never Used Drinks/Week oz/Week Comments Alcohol Use No Sex Assigned at Date Recorded Not on file documented as of this encounter Last Filed Vital Signs Reading Time Taken Comments Vital Sign 132/70 04/28/2015 9:03 AM HEALTH DIRECTOR Blood Pressure 70 04/28/2015 9:03 AM HEALTH DIRECTOR Pulse 36.7 C (98.1 F) 04/28/2015 9:03 AM HEALTH DIRECTOR Temperature - - Respiratory Rate 99% 04/28/2015 9:03 AM HEALTH DIRECTOR Oxygen Saturation - - Inhaled Oxygen Concentration 68.9 kg (152 lb) 04/28/2015 9:03 AM HEALTH DIRECTOR Weight 157.5 cm (5' 2") 04/28/2015 9:03 AM HEALTH DIRECTOR Height 27.8 04/28/2015 9:03 AM HEALTH DIRECTOR Body Mass Index documented in this encounter Progress Notes * Goyo Aguayo MD - 04/28/2015 1:35 PM HEALTH DIRECTOR HISTORY OF PRESENT ILLNESS Era Viveros, a 74 y.o. female presents with a Chief Complaint of Follow Up; Results; and [facility] Check Subjective HPI here in general feeling better, improved cough, no fever. follow up chronic issues as well. REVIEW OF SYSTEMS Review of Systems Constitutional: Positive for fatigue. Negative for fever, activity change, appet ite change and unexpected weight change. HENT: Negative for congestion. Respiratory: Positive for cough. Negative for shortness of breath. Cardiovascular: Negative for chest pain. Gastrointestinal: Negative for abdominal pain. Genitourinary: Negative for menstrual problem. Musculoskeletal: Positive for back pain and arthralgias. Negative for neck stiff ness. Neurological: Negative for weakness. Objective PHYSICAL EXAM BP 132/70 mmHg | Pulse 70 | Temp(Src) 98.1 F (36.7 C) | Ht 5' 2" (1.575 m) | Wt 68.947 kg (152 lb) | BMI 27.79 kg/m2 | SpO2 99% Physical Exam Constitutional: She is oriented to [...] and intact dist al pulses. Pulmonary/Chest: Effort normal. No respiratory distress. She has no wheezes. She has no rales. Diminished BS Abdominal: Soft. Bowel sounds are normal. Musculoskeletal: Normal range of motion. She exhibits tenderness (low back and s houlders, no effusion, FROM). Neurological: She is alert and oriented to person, place, and time. Skin: Skin is warm and dry. Nursing note and vitals reviewed. Assessment ASSESSMENT and PLAN: ICD-9-CM ICD-10-CM 1. Pneumonia of both lower lobes due to infectious organism 483.8 J16.8 XR CHEST PA AND LATERAL CBC WITH DIFFERENTIAL 2. Essential hypertension 401.9 I10 3. Primary osteoarthritis involving multiple joints 715.09 M15.0 4. Pure hypercholesterolemia 272.0 E78.0 5. Prediabetes 790.29 R73.09 Current outpatient prescriptions: dicyclomine (BENTYL) 20 mg tablet, Take 1 Tab by mouth 4 times daily before meals and at bedtime., Disp: 120 Tablet, Rfl: 2; furosemide (LASIX) 20 mg tablet, Take 1 Tab by mouth daily., Disp: 30 Tablet, R fl: 2; colchicine-probenecid (COLBENEMID) 0.5-500 mg Tablet, Take 1 Tab by mout h daily., Disp: 60 Tablet, Rfl: 1 ferrous sulfate (FEOSOL) 325 mg (65 mg iron) tablet, Take 1 Tablet (325 mg) by m outh 2 times daily., Disp: 60 Tablet, Rfl: 3; oxygen home delivery, Face to Fac e completed within 30 days: yes Length of Need: 99 months By: Nasal Cannula co ntinuously at 2 L/min.., Disp: 1 Each, Rfl: 0; albuterol HFA 90 mcg inhaler, T josephine 2 Puffs by inhalation every 6 hours as needed for Shortness of Breath., Disp : 8.5 Gram, Rfl: 0 NIFEdipine (PROCARDIA XL) 30 mg Extended Release 24 hour tablet, Take 1 Tab by m outh 2 times daily., Disp: 60 Tablet, Rfl: 5; metoprolol tartrate (LOPRESSOR) 2 5 mg tablet, Take 1 Tab by mouth 2 times daily., Disp: 60 Tablet, Rfl: 5; EVIST A 60 mg tablet, Take 1 Tab by mouth daily., Disp: 30 Tablet, Rfl: 11; HYDROcodo ne-acetaminophen (NORCO) 5-325 mg tablet, Take 1 Tablet by mouth every 4 hours a s needed for Pain, Moderate., Disp: 90 Tablet, Rfl: 0 ALPRAZolam (XANAX) 0.25 mg tablet, Take 1 Tab by mouth 3 times daily as needed f or Anxiety., Disp: 60 Tab, Rfl: 3; 0mega-3 fatty acids-vitamin E (FISH OIL) 1,0 00 mg Capsule, Take 1 Capsule by mouth daily OMEGA RED. , Disp: , Rfl: ; lansop razole (PREVACID) 15 mg Oral CpDR, Take 15 mg by mouth 1 time daily as needed . , Disp: , Rfl: ; aspirin (BABY ASPIRIN) 81 mg Oral Chew, Take 81 mg by mouth ev tejas other day . , Disp: , Rfl: TH DIRECTOR documented in this encounter Plan of Treatment Not on filedocumented as of this encounter Results * XR CHEST PA AND LATERAL (05/12/2015 1:50 PM HEALTH DIRECTOR) Specimen Impressions Performed At IMPRESSION: INTERFACE SYSTEM Significant improvement in the appearan ce of the chest. No evidence of consolidating pneumonia, pneumothorax or significant pleural eff usion. Moderate/large hiatal hernia. Cardiomegaly without evidence of failure. Electronically Signed By: Ryan Otto MD, Signed On: 05/12/2015 2:01 PM Narrative Performed At EXAM: Two view chest x-ray. INTERFACE SYSTEM CLINICAL INDICATION: Pneumonia. Shortne ss of breath. COMPARISON: Most recent 04/11/15 FINDINGS: Significant improvement in the appearan ce of the chest. Persistent cardiomegaly. Persistent moderate/large hiatal hernia. Vasculari ty is within normal limits. No new or increasing consolidating pulmonary infiltrates, pneumothorax, or significant pleural effusion are identified. Procedure Note Interface, [facility] Incoming Radiology Results - 05/12/2015 2:05 PM HEALTH DIRECTOR EXAM: Two view chest x-ray. CLINICAL INDICATION: Pneumonia. Shortness of breath. COMPARISON: Most recent 04/11/15 FINDINGS: Significant improvement in the appearance of the chest. Persistent cardiomegaly. Persistent moderate/large hiatal hernia. Vascularity is within normal limits. No new or increasing consolidating pulmonary infiltrates, pneumothorax, or significant pleural effusion are identified. IMPRESSION IMPRESSION: Significant improvement in the appearance of the chest. No evidence of consolidating pneumonia, pneumothorax or significant pleural effusion. Moderate/large hiatal hernia. Cardiomegaly without evidence of failure. Electronically Signed By: Ryan Otto MD, Signed On: 05/12/2015 2:01 PM Performing Organization Address City/State/Zipcode Ph one Number INTERFACE SYSTEM INTERFACE SYSTEM Refer to clinic/hospital department * CBC WITH DIFFERENTIAL (05/12/2015 1:27 PM HEALTH DIRECTOR) WBC 6.7 2.9 - 11.0 K/uL [facility] RBC 4.76 3.77 - 5.57 M/uL [facility] [place] HEMOGLOBIN 12.8 11.9 - 16.3 g/dL [facility] [place] HEMATOCRIT 42.2 34.4 - 51.6 % [facility] [place] MCV 88.5 82.4 - 103.2 fL [facility] [place] MCH 27.0 26.2 - 32.6 pg [facility] [place] MCHC 30.5 30.2 - 35.0 g/dL [facility] [place] RDW 20.3 (H) 11.1 - [...] Ph one Number [facility] CLIA# [id number] [place] [address] - [place] [address] [place] [address] [address] documented in this encounter Visit Diagnoses Diagnosis Pneumonia of both lower lobes due to in fectious organism Essential hypertension Unspecified essential hypertension Primary osteoarthritis involving multip le joints Pure hypercholesterolemia Prediabetes Other abnormal glucose documented in this encounter
--- OUTSIDE RECORDS SUMMARY | 2019-08-19 16:06 | XMS REPORT | Encounter Summary ---
Author Author [facility] Organization [facility] Address Unknown Phone Unavailable Care Team Providers Care Audit Associate Name Role Phone Carlotta Aguayo MD PCP Unavailable Encounter Details Care Team Description Date Type Department Carlotta Aguayo MD NO ADDRESS ON FILE 06/29/[address] [address] Social History Date Tobacco Use Types Packs/Day Years Used Never Smoker Smokeless Tobacco: Never Used Drinks/Week oz/Week Comments Alcohol Use No Sex Assigned at Date Recorded Not on file documented as of this encounter Plan of Treatment Not on filedocumented as of this encounter Visit Diagnoses Not on filedocumented in this encounter
--- OUTSIDE RECORDS SUMMARY | 2019-08-19 16:06 | XMS REPORT | Encounter Summary ---
Author Author [facility] Organization [facility] Address Unknown Phone Unavailable Care Team Providers Care Reproduction Technician Name Role Phone Carlotta Aguayo MD PCP Unavailable Encounter Details Care Team Description Date Type Department Carlotta Aguayo MD NO ADDRESS ON FILE Ftsc, Outpt Lab 04/28/2015 [facility] Outpatient Encounter Laboratory [address] [address] Social History Date Tobacco Use [...] Capsule mouth 2 times daily OMEGA RED. 04/14/2015 10/10/2015 dicyclomine (BENTYL) 20 Take 1 [...] needed for involving multiple joints Pain, Moderate. 03/17/2014 05/12/2015 ALPRAZolam (XANAX) 0.25 Take 1 Tab by 60 Tab 3 mg tabletIndications: mouth 3 times Anxiety daily as needed for Anxiety. 08/08/2017 lansoprazole [...] Date/Time Associated Diag nosis HEMOGLOBIN A1C Stat 04/28/2015 Prediabetes 7:32 AM WHEELCHAIR VAN OPERATOR FIRST RESPONDER LIPID PANEL Stat 04/28/2015 Hyperlipidemia 7:32 AM WHEELCHAIR VAN OPERATOR FIRST RESPONDER COMPREHENSIVE METABOLIC Stat 04/28/2015 Hyperl ipidemia PANEL 7:32 AM WHEELCHAIR VAN OPERATOR FIRST RESPONDER documented in this encounter Results * LIPID PANEL (04/28/2015 7:32 AM WHEELCHAIR VAN OPERATOR FIRST RESPONDER) CHOLESTEROL 224 (H) <200 mg/dL [facility] LABORATORY SERVICES - [facility] INDU TRIGLYCERIDE 86 <150 mg/dL [facility] LABORATORY [facility] - [facility] INDU HDL 78 (H) 40 - 59 mg/dL [facility] LABORATORY [facility] [place] LDL CALCULATED 129 (H) <100 mg/dL [facility] LABORATORY [place] - [place] NON-HDL 146 (H) <130 mg/dL [facility] CHOLESTEROL LABORATORY [facility] [place] INDU Specimen Blood Narrative Performed At TOTAL CHOLESTEROL mg/dL [facility] LABORATORY Desirable <200 SERVICES - [place] [...] Based on AHA/NCEP Guidelines Performing Organization Address [facility] Ph one Number [facility] LABORATORY SERVICES CLIA# [id number] KRISTA LAUREN [address] [address] * HEMOGLOBIN A1C (04/28/2015 7:32 AM WHEELCHAIR VAN OPERATOR FIRST RESPONDER) HEMOGLOBIN A1C 5.5 4.8 - 5.9 % [facility] [place] EST. AVG 111 mg/dL [facility] GLUCOSE, A1C LABORATORY SERVICES - [place] Specimen Blood Performing Organization Address [facility] one Ken [facility] LABORATORY SERVICES CLIA# [id number] [place] [address] [address] * COMPREHENSIVE METABOLIC PANEL (04/28/2015 7:32 AM WHEELCHAIR VAN OPERATOR FIRST RESPONDER) SODIUM 144 136 - 145 mmol/L [facility] [place] POTASSIUM 3.6 3.5 - 5.1 mmol/L [facility] - [facility] INDU CHLORIDE 108 (H) 98 - 107 mmol/L [facility] [place] CO2 23 22 - 29 mmol/L [facility] [place] CALCIUM 9.2 8.8 - 10.2 mg/dL [facility] LABORATORY SERVICES - [facility] INDU BUN 15 8 - 23 mg/dL [facility] LABORATORY SERVICES - [place] CREATININE 1.61 (H) 0.51 - 0.95 mg/dL [facility] Comment: LABORATORY The GFR result is not SERVICES - [place] clinically significant on [place] patients <18 or >70 years of age. GLUCOSE 105 (H) 70 - 100 mg/dL [facility] [place] TOTAL PROTEIN 7.0 6.6 - 8.7 g/dL [facility] [place] ALBUMIN 3.6 3.5 - 5.2 g/dL [facility] [place] BILIRUBIN TOTAL 0.2 <=1.2 mg/dL [facility] [place] ALKALINE 66 35 - 104 U/L [facility] - [place] AST 30 10 - 35 U/L [facility] [place] ALT 30 10 - 35 U/L [facility] [place] GFR 31 mL/min/1.73 sq meter [facility] Comment: LABORATORY eGFR has not been validated [facility] for use in the elderly (> 70 [...] GFR result. GFR, 38 mL/min/1.73 sq meter [facility] LABORATORY SERVICES - [place] ANION GAP 13 4 - 20 mmol/L [facility] LABORATORY SERVICES - [place] Specimen Blood Performing Organization Address City/State/[facility] Ph one Number [facility]ORY SERVICES CLIA# [id number] [place] [address] - [place] [address] documented in this encounter Visit Diagnoses Diagnosis Hyperlipidemia Other and unspecified hyperlipidemia Prediabetes Other abnormal glucose documented in this encounter
--- OUTSIDE RECORDS SUMMARY | 2019-08-19 16:06 | XMS REPORT | Encounter Summary ---
Author Author [facility] Organization [facility] Address Unknown Phone Unavailable Care Team Providers Care Payroll Bookkeeper Name Role Phone Carlotta Aguayo MD PCP Unavailable Reason for Visit * Auth/Cert Referred By Contact Referred To Contact Status Reason Specialty Diagnoses / Procedures [facility] Imaging Services [address] [place] [phone] Radiology Encounter Details Care Team Description Date Type Department Carlotta Aguayo MD NO ADDRESS ON FILE 05/12/2015 [facility] Imaging Se rvices Encounter [address] [address] Social History Date Tobacco Use [...] XR CHEST PA AND LATERAL 2 Stat 05/12/2015 Pneu monia of both lower VW 1:50 PM FOOD MANAGER lobes due to infect ious organism documented in this encounter Results * XR CHEST PA AND LATERAL (05/12/2015 1:50 PM FOOD MANAGER) Specimen Impressions Performed At IMPRESSION: INTERFACE [...] pleural effusion are identified. Procedure Note Interface, Tyrone Aok Incoming Radiology Results - 05/12/2015 2:05 PM FOOD MANAGER EXAM: Two view chest x-ray. CLINICAL INDICATION: [...]
--- OUTSIDE RECORDS SUMMARY | 2019-08-19 16:06 | XMS REPORT | Encounter Summary ---
Author Author [facility] Organization [facility] Address Unknown Phone Unavailable Care Team Providers Care Director Voice Name Role Phone Carlotta Aguayo MD PCP Unavailable Reason for Visit * Reason Comments Medication Refill Encounter Details Care Team Description Date Type Department Carlotta Aguayo MD NO ADDRESS ON FILE 04/14/2015 Refill [facility] [address] [phone] Social History Date Tobacco Use Types Packs/Day Years Used Never Smoker Smokeless Tobacco: Never Used Drinks/Week oz/Week Comments Alcohol Use No Sex Assigned at Date Recorded Not on file documented as of this encounter Plan of Treatment Not on filedocumented as of this encounter Visit Diagnoses Not on filedocumented in this encounter
--- OUTSIDE RECORDS SUMMARY | 2019-08-19 16:06 | XMS REPORT | Encounter Summary ---
Author Author [facility] Organization [facility] Address Unknown Phone Unavailable Care Team Providers Care Epic Trainer Name Role Phone Carlotta Augayo MD PCP Unavailable Reason for Visit * Reason Comments Follow Up 3 mos Results lab Lesions growth near right eyelid Encounter Details Care Team Description Date Type Department Carlotta Aguayo MD NO ADDRESS ON FILE Back strain, initial encounter (Primary Dx); Acute right-sided low back pain without sciatica; Primary osteoarthritis involving multiple joints; Pure hypercholesterolemia; Prediabetes 08/11/2015 Office Visit [facility] [address] [address] Social History Date Tobacco Use Types Packs/Day Years Used Never Smoker Smokeless Tobacco: Never Used Drinks/Week oz/Week Comments Alcohol Use No Sex Assigned at Date Recorded Not on file documented as of this encounter Last Filed Vital Signs Reading Time Taken Comments Vital Sign 110/84 08/11/2015 10:02 AM CDT Blood Pressure - - Pulse - - Temperature - - Respiratory Rate - - Oxygen Saturation - - Inhaled Oxygen Concentration 69.4 kg (153 lb) 08/11/2015 10:02 AM CDT Weight 157.5 cm (5' 2") 08/11/2015 10:02 AM CDT Height 27.98 08/11/2015 10:02 AM CDT Body Mass Index documented in this encounter Progress Notes * Goyo Aguayo MD - 08/11/2015 10:34 AM CDT HISTORY OF PRESENT ILLNESS Era Viveros, a 74 y.o. female presents with a Chief Complaint of Follow Up; Results; and Lesions Subjective HPI here with follow up pneumonia. [...] patient is nervous/anxious. Objective PHYSICAL EXAM BP 110/84 mmHg | Ht 5' 2" (1.575 m) | Wt 69.4 kg (153 lb) | BMI 27.98 kg/m2 Physical Exam Constitutional: She is oriented [...] PM Lab Results Component Value Date/Time NA 143 08/11/2015 08:40 AM K 3.8 08/11/2015 08:40 AM CL 103 08/11/2015 08:40 AM CO2 23 08/11/2015 08:40 AM CA 9.5 08/11/2015 08:40 AM BUN 22 08/11/2015 08:40 AM CREAT 1.66* 08/11/2015 08:40 AM GLUCOSE 108* 08/11/2015 08:40 AM TOTALPROTEIN 7.7 08/11/2015 08:40 AM ALBUMIN 4.1 08/11/2015 08:40 AM BILITOTAL 0.2 08/11/2015 08:40 AM ALKPHOS 83 08/11/2015 08:40 AM AST 54* 08/11/2015 08:40 AM ALT 62* 08/11/2015 08:40 AM ANIONGAP 17 08/11/2015 08:40 AM BCRATIO 13.5 03/06/2012 07:50 AM Lab Results Component Value Date/Time HGBA1C 5.5 08/11/2015 08:40 AM Results for orders placed or performed [...] Assessment ASSESSMENT and PLAN: ICD-9-CM ICD-10-CM 1. Back strain, initial encounter 847.9 S39.012A dexamethasone (DECADRON) inject ion 4 mg methylPREDNISolone Acetate (DEPO-MEDROL) injection 80 mg 2. Acute right-sided low back pain without sciatica 724.2 M54.5 dexamethasone (D ECADRON) injection 4 mg methylPREDNISolone Acetate (DEPO-MEDROL) injection 80 mg 3. Primary osteoarthritis involving multiple joints 715.09 M15.0 HYDROcodone-belkis taminophen (NORCO) 5-325 mg tablet 4. Pure hypercholesterolemia 272.0 E78.0 COMPREHENSIVE METABOLIC PANEL LIPID PANEL 5. Prediabetes 790.29 R73.09 HEMOGLOBIN A1C Current outpatient prescriptions: HYDROcodone-acetaminophen (NORCO) 5-325 mg tablet, Take 1 [...] at bedtime., Disp: 120 Tablet, Rfl: 2 colchicine-probenecid (COLBENEMID) 0.5-500 mg Tablet, Take 1 Tab by mouth d aily., Disp: 60 Tablet, Rfl: 1 ferrous sulfate (FEOSOL) 325 mg (65 mg iron) tablet, Take 1 Tablet (325 mg) by mouth 2 times daily. (Patient taking differently: Take 325 mg by mouth daily . ), Disp: 60 Tablet, Rfl: 3 oxygen home [...] Pain, Moderate., Disp: 90 Tablet, Rfl: 0 Current facility-administered medications: dexamethasone (DECADRON) injection 4 mg, 4 mg, IM, ONCE, Goyo Aguayo MD methylPREDNISolone Acetate (DEPO-MEDROL) injection 80 mg, 80 mg, IM, ONCE, Goyo Aguayo MD documented in this encounter Plan of Treatment Not on filedocumented as of this encounter Results * HEMOGLOBIN A1C (11/10/2015 8:29 AM CDT) Pathologist [facility] HEMOGLOBIN A1C 5.6 4.8 - 5.9 % [facility] LABORATORY [facility] EST. AVG 114 mg/dL [facility] GLUCOSE, A1C LABORATORY SERVICES - [place] Specimen Blood Performing Organization Address City/State/[facility] Ph one Number [facility] LABORATORY SERVICES CLIA# [id number] [place], [place] [address] [place] [address] [facility] * LIPID PANEL (11/10/2015 8:29 AM CDT) CHOLESTEROL 219 (H) <200 mg/dL [facility] LABORATORY [facility] TRIGLYCERIDE 102 <150 mg/dL [facility] LABORATORY [facility] HDL 90 (H) 40 - 59 mg/dL [facility] LABORATORY [facility] LDL CALCULATED 109 (H) <100 mg/dL [facility] LABORATORY [facility] NON-HDL 129 <130 mg/dL [facility] CHOLESTEROL LABORATORY SERVICES [facility] Specimen Blood Narrative Performed At TOTAL CHOLESTEROL mg/dL [facility] LABORATORY Desirable <200 SERVICES - [facility] Borderline high 200-239 INDU High >=240 [...] Based on AHA/NCEP Guidelines Performing Organization Address City/State/Zipcode Ph one Number [facility] LABORATORY SERVICES CLIA# [id number] KRISTA LAUREN [address] - [place] INDU [address] [facility] * COMPREHENSIVE METABOLIC PANEL (11/10/2015 8:29 AM CDT) SODIUM 144 136 - 145 mmol/L [facility] LABORATORY SERVICES - [facility] INDU POTASSIUM 3.8 3.5 - 5.1 mmol/L [facility] - [facility] INDU CHLORIDE 106 98 - 107 mmol/L [facility] LABORATORY SERVICES - [facility] INDU CO2 20 (L) 22 - 29 mmol/L [facility] LABORATORY SERVICES - [facility] INDU CALCIUM 9.1 8.8 - 10.2 mg/dL [facility] LABORATORY SERVICES - [facility] INDU BUN 17 8 - 23 mg/dL [facility] LABORATORY SERVICES - [place] CREATININE 1.48 (H) 0.51 - 0.95 mg/dL [facility] Comment: LABORATORY The GFR result is not [facility] clinically significant on [place] patients <18 or >70 years of age. GLUCOSE 109 (H) 70 - 100 mg/dL [facility] LABORATORY SERVICES - [facility] INDU TOTAL PROTEIN 7.1 6.6 - 8.7 g/dL [facility] LABORATORY SERVICES - [place] ALBUMIN 4.1 3.5 - 5.2 g/dL [facility] LABORATORY SERVICES - [place] BILIRUBIN TOTAL 0.2 <=1.2 mg/dL [facility] - [place] ALKALINE 70 35 - 104 U/L [facility] PHOSPHATASE LABORATORY SERVICES - [place] AST 37 (H) <=33 U/L [facility] LABORATORY SERVICES - [place] ALT 49 (H) 10 - 35 U/L [facility] LABORATORY SERVICES - [place] GFR 34 mL/min/1.73 sq meter [facility] Comment: LABORATORY eGFR has not been validated SERVICES - [facility] for use in the elderly (> 70 [place] years of age), women, patients with serious [...] GFR result. GFR, 42 mL/min/1.73 sq meter [facility] LABORATORY SERVICES - [place] ANION GAP 18 4 - 20 mmol/L [facility] LABORATORY [facility] - [place] Specimen Blood Performing Organization Address City/State/[facility] Ph one Number [facility] LABORATORY SERVICES CLIA# [id number] [place] [address] - [place] [address] documented in this encounter Visit Diagnoses Diagnosis Back strain, initial encounter Acute right-sided low back pain without sciatica Primary osteoarthritis involving multip le joints Pure hypercholesterolemia Prediabetes Other abnormal glucose documented in this encounter Administered Medications Action Date Dose Rate Site Medication Order MAR Action 08/11/2015 12:14 PM CDT 4 mg Left Upp er Outer Quadrant dexamethasone (DECADRON) injection 4 mg Given 4 mg, IM, ONE TIME ONLY, 1 dose, Nathaly 08/11/15 at 1015, Routine 08/11/2015 12:14 PM CDT 80 mg Left Upp er Outer Quadrant methylPREDNISolone Acetate (DEPO-MEDROL) Given injection 80 mg 80 mg, IM, ONE TIME ONLY, 1 dose, Nathaly 08/11/15 at 1015, Routine documented in this encounter
--- OUTSIDE RECORDS SUMMARY | 2019-08-19 16:06 | XMS REPORT | Encounter Summary ---
Author Author [facility] Organization [facility] Address Unknown Phone Unavailable Care Team Providers Care Senior Environmental Consultant Name Role Phone Carlotta Aguayo MD PCP Unavailable Encounter Details Care Team Description Date Type Department Carlotta Aguayo MD NO ADDRESS ON FILE 04/21/[address] [address] Social History Date Tobacco Use Types Packs/Day Years Used Never Smoker Smokeless Tobacco: Never Used Drinks/Week oz/Week Comments Alcohol Use No Sex Assigned at Date Recorded Not on file documented as of this encounter Plan of Treatment Not on filedocumented as of this encounter Visit Diagnoses Not on filedocumented in this encounter
--- OUTSIDE RECORDS SUMMARY | 2019-08-19 16:06 | XMS REPORT | Encounter Summary ---
Author Author [facility] Organization [facility] Address Unknown Phone Unavailable Care Team Providers Care Deputy Sheriff Bailiff Name Role Phone Carlotta Aguayo MD PCP Unavailable Reason for Visit * Auth/Cert Referred By Contact Referred To Contact Status Reason Specialty Diagnoses / Procedures [facility] [address] [place] [address] Inpatient Diagnoses p neumonia Encounter Details Care Team Description Date Type Department Carlotta Aguayo MD NO ADDRESS ON FILE Pneumonia 04/08/2015 Hospital [facility] - Encounter [facility] 04/12/2015 [address] [place] [address] Social History Date Tobacco Use Types Packs/Day Years Used Never Smoker Smokeless Tobacco: Never Used Drinks/Week oz/Week Comments Alcohol Use No Sex Assigned at Date Recorded Not on file documented as of this encounter Last Filed Vital Signs Reading Time Taken Comments Vital Sign 139/74 04/12/2015 8:21 AM DOCUMENTUM CONSULTANT Blood Pressure 95 04/12/2015 2:23 PM DOCUMENTUM CONSULTANT Pulse 36.5 C (97.7 F) 04/12/2015 8:21 AM DOCUMENTUM CONSULTANT Temperature 20 04/12/2015 2:15 PM DOCUMENTUM CONSULTANT Respiratory Rate 96% 04/12/2015 2:23 PM DOCUMENTUM CONSULTANT Oxygen Saturation - - Inhaled Oxygen Concentration 68.6 kg (151 lb 4.8 oz) 04/08/2015 11:40 AM DOCUMENTUM CONSULTANT Weight 157.5 cm (5' 2") 04/08/2015 11:40 AM DOCUMENTUM CONSULTANT Height 27.67 04/08/2015 11:40 AM DOCUMENTUM CONSULTANT Body Mass Index documented in this encounter Discharge Summaries * Goyo Aguayo MD - 04/12/2015 12:43 PM DOCUMENTUM CONSULTANT Physician Discharge Summary Patient: Era Viveros / 74 y.o. / female : 1940 Admit date: 04/08/2015 Indication for Admission: admitted with increasing cough and shortness of breath , weakness and fever.. Admitting Diagnoses: pneumonia Attending Physician: Goyo Aguayo MD Consults: none. Emergency Department Diagnoses: not seen in ED Treatments: antibiotics: azithromycin and ceftTRIAXone, respiratory therapy: O2 and albuterol/atrovent nebulizer . Significant Diagnostic Studies: labs: cbc, cmp and radiology: CXR: infiltrate(s) : lower lobe(s) both. Hospital Course: admitted with increasing cough and shortness of breath , fever and weakness. Marked improved with O2 and IV antibiotics of Rocephin and Azithro mycin. Bronchodilator therapy. Dismissed on azithromycin, home O2 which she qual ified for and albuterol by HFA. Feeling much better. Iron deficient anemia, incr eased Niferex to bid Admission Condition: significantly deteriorating. Discharge date: 04/12/2015 Discharging Physician: Carlotta Aguayo MD Discharge Exam: BP 139/74 mmHg | Pulse 95 | Temp(Src) 97.7 F (36.5 C) (Tympanic) | Resp 20 | Ht 5' 2" (1.575 m) | Wt 151 lb 4.8 oz (68.629 kg) | BMI 27.67 kg/m2 | SpO2 98% Lungs: clear to auscultation bilaterally, normal respiratory effort Heart: normal rate, regular rhythm, normal S1, S2, no murmurs, rubs, clicks or g allops. Discharge Condition: improved to baseline. Discharge Diagnoses: Principal Problem: Pneumonia Active Problems: Iron deficiency anemia Disposition: home. MEDICATIONS Prior to admission: Facility-administered medications prior to admission Medication Dose Route Frequency Provider Last Rate Last Dose [COMPLETED] ipratropium-albuterol (DUONEB) 0.5 mg-3 mg(2.5 mg base)/3 mL inh alation solution 3 mL 3 mL Inhalation Resp Once Goyo Aguayo MD 3 mL at 04/08/15 1018 Prescriptions prior to admission Medication Sig Dispense Refill Last Dose albuterol HFA 90 mcg inhaler Take 2 Puffs by inhalation every 6 hours as nee ded for Shortness of Breath. 8.5 Gram 0 04/07/2015 at Unknown time NIFEdipine (PROCARDIA XL) 30 mg Extended Release 24 hour tablet Take 1 Tab b y mouth 2 times daily. 60 Tablet 5 04/07/2015 at Unknown time metoprolol tartrate (LOPRESSOR) 25 mg tablet Take 1 Tab by mouth 2 times amirah ly. 60 Tablet 5 04/07/2015 at Unknown time EVISTA 60 mg tablet Take 1 Tab by mouth daily. 30 Tablet 11 04/07/2015 at Unkn own time furosemide (LASIX) 20 mg tablet Take 1 Tab by mouth daily. 30 Tab 5 04/07/2015 at Unknown time colchicine-probenecid (COLBENEMID) 0.5-500 mg Tablet Take 1 Tab by mouth amirah ly. 60 Tab 2 04/07/2015 at Unknown time dicyclomine (BENTYL) 20 mg tablet Take 1 Tab by mouth 4 times daily before m eals and at bedtime. 120 Tab 3 04/07/2015 at 2100 ALPRAZolam (XANAX) 0.25 mg tablet Take 1 Tab by mouth 3 times daily as neede d for Anxiety. 60 Tab 3 04/06/2015 at hs (1/2 tab) 0mega-3 fatty acids-vitamin E (FISH OIL) 1,000 mg Capsule Take 1 Capsule by mouth daily OMEGA RED. 04/07/2015 at Unknown time lansoprazole (PREVACID) 15 mg Oral CpDR Take 15 mg by mouth 1 time daily as needed Qod . Past Week at Unknown time aspirin (BABY ASPIRIN) 81 mg Oral Chew Take 81 mg by mouth every other day . Past Week at Unknown time HYDROcodone-acetaminophen (NORCO) 5-325 mg tablet Take 1 Tablet by mouth inés ry 4 hours as needed for Pain, Moderate. 90 Tablet 0 > Month at Unknown time Discharge medications and new prescriptions: Medication List START taking these medications azithromycin 250 mg tablet Commonly known as: ZITHROMAX Z-ANGELI Take 2 tabs the first day and 1 tab days 2-5. Signed by: Goyo Aguayo Quantity: 1 Package Refills: 0 ferrous sulfate 325 mg (65 mg iron) tablet Commonly known as: FEOSOL Take 1 Tablet (325 mg) by mouth 2 times daily. Signed by: Goyo Aguayo Quantity: 60 Tablet Refills: 3 oxygen home delivery - Face to Face completed within 30 days: yes - - Length of Need: 99 months - - By: Nasal Cannula continuously at 2 L/min.. Signed by: Goyo Aguayo Quantity: 1 Each Refills: 0 CONTINUE taking these medications albuterol sulfate 90 mcg/Actuation inhaler Take 2 Puffs by inhalation every 6 hours as needed for Shortness of Breath. Signed by: Guadalupe Alejandro Quantity: 8.5 Gram Refills: 0 ALPRAZolam 0.25 mg tablet Commonly known as: XANAX Take 1 Tab by mouth 3 times daily as needed for Anxiety. Signed by: Goyo Aguayo Quantity: 60 Tab Refills: 3 BABY ASPIRIN 81 mg Tablet, Chewable Take 81 mg by mouth every other day . Refills: 0 Generic drug: aspirin colchicine-probenecid 0.5-500 mg Tablet Commonly known as: COLBENEMID Take 1 Tab by mouth daily. Signed by: Goyo Aguayo Quantity: 60 Tab Refills: 2 dicyclomine 20 mg tablet Commonly known as: BENTYL Take 1 Tab by mouth 4 times daily before meals and at bedtime. Signed by: Goyo Aguayo Quantity: 120 Tab Refills: 3 EVISTA 60 mg tablet Take 1 Tab by mouth daily. Signed by: Goyo Aguayo Quantity: 30 Tablet Refills: 11 Generic drug: raloxifene FISH OIL 1,000 mg Capsule Take 1 Capsule by mouth daily OMEGA RED. Refills: 0 Generic drumega-3 fatty acids-vitamin E furosemide 20 mg tablet Commonly known as: LASIX Take 1 Tab by mouth daily. Signed by: Goyo Aguayo Quantity: 30 Tab Refills: 5 HYDROcodone-acetaminophen 5-325 mg tablet Commonly known as: NORCO Take 1 Tablet by mouth every 4 hours as needed for Pain, Moderate. Signed by: Goyo Aguayo Quantity: 90 Tablet Refills: 0 metoprolol tartrate 25 mg tablet Commonly known as: LOPRESSOR Take 1 Tab by mouth 2 times daily. Signed by: Goyo Aguayo Quantity: 60 Tablet Refills: 5 NIFEdipine 30 mg Extended Release 24 hour tablet Commonly known as: PROCARDIA XL Take 1 Tab by mouth 2 times daily. Signed by: Goyo Aguayo Quantity: 60 Tablet Refills: 5 PREVACID 15 mg Capsule, Delayed Release(E.C.) - Take 15 mg by mouth 1 time daily as needed Qod - . Refills: 0 Generic drug: lansoprazole Where to Get Your Medications Information on where to get these meds is not yet available. Ask your nurse or doctor. - azithromycin 250 mg tablet - ferrous sulfate 325 mg (65 mg iron) tablet - oxygen home delivery Patient instructions: Activity: activity as tolerated. Diet: Regular Diet. Wound Care: None needed. Follow-up with Goyo Aguayo MD in 1 week(s). Signed: Carlotta Aguayo MD 04/12/2015, 12:43 PM MENTUM CONSULTANT documented in this encounter Discharge Instructions * Instructions* Susan Ramos RN - 04/12/2015 DISCHARGE DESTINATION: Home DISCHARGE SERVICES: O2 2L min per NC continously FOLLOW-UP Follow up with Dr Aguayo in one week, April 20 at 9:10 am. PRESCRIPTIONS: Prescriptions given? Yes and Printed SIGNS AND SYMPTOMS TO REPORT Contact your health care provider if you experience any of the following symptom s: increased dizziness or lightheadedness, shortness of breath or difficulty br eathing or unable to keep food or fluids down. ACTIVITY Your activity level is: increase activity as tolerated and no smoking. If you smoke you are advised to quit. Ask your health care provider for advice if you need assistance to stop smoking. Avoid second-hand smoke exposure and do not le t people smoke in your home. DIET Your diet is: As tolerated MEDICATIONS Reminders: Please discard any old medication [...] situations ................................................................................ ...................................................... *THANK YOU FOR CHOOSING [facility] Our goal is to provide you with the highest level of care and service. Your fe edback about the positive experience and opportunities for us to better serve u is important to us. Patients will be randomly selected for either a phone or e-mail survey. * Phone surveys will be conducted by a non-[facility] employed attendant to patients of [facility] inpatient unit, surgery, emergency department, home health or convenient care. * E-mail surveys will be delivered to [facility] patients and outpatients. .Did you know you don't have to call your doctor's office to ask a question, get your test results, or request an appointment or prescription renewal? You can do all of that and more, 22/10, with [employer]. Send a secure message, pay a bill, check your health records - it's all there on your laptop, tablet, or phone, an ywhere you have Internet access. Learn more or sign up at [employer]. .. IMPORTANT EMERGENCY PHONE NUMBERS Poison Control [place] Crisis Hotline- Domestic Violence Suicide Prevention Lifeline * Attachments The following attachments cannot be sent through Care Everywhere.* PNEUMONIA (MACEDONIAN) documented in this encounter Medications at Time of Discharge Start Date End Date Medication Sig Dispensed Refills 0mega-3 fatty Take 2 0 acids-vitamin E (FISH Capsules by OIL) 1,000 mg Capsule mouth 2 times daily OMEGA RED. 04/12/2015 04/17/2015 azithromycin (ZITHROMAX Take 2 tabs 1 Package 0 Z-ANGELI) 250 mg tablet the first day and 1 tab days 2-5. 01/17/2015 08/01/2015 NIFEdipine (PROCARDIA XL) Take 1 [...] needed for involving multiple joints Pain, Moderate. 09/21/2014 04/14/2015 furosemide (LASIX) 20 mg Take 1 Tab by 30 Tab 5 tablet mouth daily. 09/16/2014 04/14/2015 colchicine-probenecid Take 1 Tab by 60 Tab 2 (COLBENEMID) 0.5-500 mg mouth daily. TabletIndications: Gout 08/04/2014 04/14/2015 dicyclomine (BENTYL) 20 Take 1 Tab by 120 Tab 3 mg tablet mouth 4 times daily before meals and at bedtime. 03/17/2014 05/12/2015 ALPRAZolam (XANAX) 0.25 Take 1 [...] day . documented as of this encounter Progress Notes * Goyo Aguayo MD - 04/12/2015 8:42 AM DOCUMENTUM CONSULTANT [address] [place], [place] [address] Patient Name: ERA VIVEROS CSN: [id number] : 1940 Provider: Goyo Aguayo M.D. Admitted: 04/08/2015 Progress Note DATE: 04/11/2015 PROBLEM: Pneumonitis. SUBJECTIVE: Feeling better, less cough. No fever. Less difficulty with shortn ess of breath, but still with exertion drops in her pulse oximetry. OBJECTIVE: Vital signs stable, afebrile. Lung sounds diminished, but clear. N o rales or rhonchi heard. Heart was regular without murmur. LABORATORY DATA: White count 7000, hemoglobin of 8.8, MCV of 81.6. She has a d rop in her hemoglobin from admission of 11.4, in part due to hydration, but she will need further evaluation. She had a positive Hemoccult, objective as stated . Chest x-ray shows pleural effusion with some basilar atelectasis and infiltra te, but improved. ASSESSMENT: As above. PLAN: Continue IV antibiotic therapy. Consider a Surgical consultation after s he is over her pneumonia. Dictated by: Goyo Aguayo M.D./JOSEQ D: [id number] V: [id number] MENTUM CONSULTANT * Goyo Aguayo MD - 04/12/2015 6:47 AM DOCUMENTUM CONSULTANT This has been dictated 04/11/15 MENTUM CONSULTANT * Luli Kyle, RN - 04/11/2015 11:32 PM DOCUMENTUM CONSULTANT Reported pt. Was to have sleep study done tonight. RT notified of pt. Still chantal dave to be placed on sleep study. RT stated pt. Had already qualified earlier t dirk when she was ambulated with PT and RT while off of oxygen. Reported inform ation to pt. MENTUM CONSULTANT * Azul Urban RN - 04/11/2015 1:[address] Aguayo at bedside, patient does not use O2 at home, unable to wean off compl etely at present time, on 2 L SD, Dr. Aguayo ordered sleep study; cardiopulmonar y notified MENTUM CONSULTANT * Azul Urban RN - 04/11/2015 11:45 AM DOCUMENTUM CONSULTANT Results for CBC w/ Diff back, FYI paged Dr. Aguayo MENTUM CONSULTANT * Azul Urban RN - 04/11/2015 11:15 AM DOCUMENTUM CONSULTANT Results for occult stool sample positive, CXR results back; notified Dr. Aguayo, orders received. MENTUM CONSULTANT * Mattie Bazan MD - 04/10/2015 11:27 AM DOCUMENTUM CONSULTANT Subjective: Still fairly SOA with exertion. Doing well with ambulation to bathroom independ ently. Anemia continues - denies any evidence blood in stools or black stools. Objective: Patient Vitals for the past 8 hrs: BP Temp Temp src Pulse Resp SpO2 04/10/15 1038 - - - 97 - 99 % 04/10/15 1034 - - - 95 18 (!) 87 % 04/10/15 0743 138/67 mmHg 99.3 F (37.4 C) Tympanic (!) 111 20 94 % 04/10/15 0717 - - - (!) 105 - 94 % 04/10/15 0711 - - - (!) 101 18 91 % Intake/Output Summary (Last 24 hours) at 04/10/15 1128 Last data filed at 04/10/15 0747 Gross per 24 hour Intake 2698.75 ml Output 1050 ml Net 1648.75 ml Hospital Encounter on 04/08/15 (from the past 24 hour(s)) BASIC METABOLIC PANEL Collection Time: 04/10/15 5:35 AM Result Value Ref Range SODIUM 145 136-145 mmol/L POTASSIUM 3.8 3.5-5.1 mmol/L CHLORIDE 112 (H) 98-107 mmol/L CO2 22 22-29 mmol/L CALCIUM 7.7 (L) 8.8-10.2 mg/dL BUN 9 8-23 mg/dL CREATININE 1.24 (H) 0.51-0.95 mg/dL GLUCOSE 122 (H) 70-100 mg/dL GFR 42 mL/min/1.73 sq meter GFR, 51 mL/min/1.73 sq meter ANION GAP 11 4-20 mmol/L CBC WITH DIFFERENTIAL Collection Time: 04/10/15 5:35 AM Result Value Ref Range WBC 9.2 2.9-11.0 K/uL RBC 3.58 (L) 3.77-5.57 M/uL HEMOGLOBIN 8.5 (L) 11.9-16.3 g/dL HEMATOCRIT 29.5 (L) 34.4-51.6 % MCV 82.4 82.4-103.2 fL MCH 23.7 (L) 26.2-32.6 pg MCHC 28.8 (L) 30.2-35.0 g/dL RDW 16.8 (H) 11.1-14.5 % PLATELETS 209 137-410 K/uL MPV 8.2 7.4-11.9 fL NEUTROPHILS 75 (H) 43-73 % LYMPHOCYTES 18 (L) 19-47 % MONOCYTES 5 3-9 % EOSINOPHILS 1 0-6 % BASOPHILS 1 0-1 % NEUTROPHIL ABSOLUTE 6.94 1.30-7.60 K/uL LYMPHOCYTE ABSOLUTE 1.61 0.60-4.90 K/uL MONOCYTE ABSOLUTE 0.50 0.10-0.90 K/uL EOSINOPHIL ABSOLUTE 0.11 0.00-0.40 K/uL BASOPHILS ABSOLUTE 0.04 0.00-0.10 K/uL IRON, TIBC, AND PERCENT SATURATION Collection Time: 04/10/15 5:35 AM Result Value Ref Range IRON 14 (L) 37-145 ug/dL TIBC 259 230-400 ug/dL IRON % SATURATION 5 (L) 15-50 % General appearance: alert, in no distress Lungs: clear to auscultation bilaterally, normal respiratory effort Heart: normal rate, regular rhythm, normal S1, S2, no murmurs, rubs, clicks or g allops Abdomen: Soft, non-tender. Bowel sounds normal. No masses, no organomegaly. Extremities: extremities normal, atraumatic, no cyanosis or edema, intact distal pulses, moves all extremities equally, no edema, redness or tenderness in the c sauceda or thighs, normal strength, normal tone Assessment: Principal Problem: Pneumonia Active Problems: Iron deficiency anemia Plan: Continue rocephin/azithromycin, duoneb Labs show iron defic anemia -- will start bid iron, will check occult stool to ge[facility] burton sure no blood loss - reports she had colonsocopy with polyp [address] Rosen MENTUM CONSULTANT * Mattie Bazan MD - 04/09/2015 11:41 AM DOCUMENTUM CONSULTANT Subjective: Reports feeling much better today. Less SOA. Does not usually wear O2 at home. Low appetite today. Objective: Patient Vitals for the past 8 hrs: BP Temp Temp src Pulse Resp SpO2 04/09/15 1008 - - - (!) 103 - 100 % 04/09/15 1003 - - - (!) 103 18 97 % 04/09/15 0745 109/58 mmHg 99.4 F (37.4 C) Tympanic (!) 110 20 94 % 04/09/15 0650 - - - (!) 103 - 97 % 04/09/15 0644 - - - (!) 103 18 (!) 89 % Intake/Output Summary (Last 24 hours) at 04/09/15 1141 Last data filed at 04/09/15 0944 Gross per 24 hour Intake 1672.5 ml Output 300 ml Net 1372.5 ml Hospital Encounter on 04/08/15 (from the past 24 hour(s)) BASIC METABOLIC PANEL Collection Time: 04/09/15 10:40 AM Result Value Ref Range SODIUM 144 136-145 mmol/L POTASSIUM 3.0 (L) 3.5-5.1 mmol/L CHLORIDE 108 (H) 98-107 mmol/L CO2 21 (L) 22-29 mmol/L CALCIUM 7.8 (L) 8.8-10.2 mg/dL BUN 12 8-23 mg/dL CREATININE 1.45 (H) 0.51-0.95 mg/dL GLUCOSE 155 (H) 70-100 mg/dL GFR 35 mL/min/1.73 sq meter GFR, 43 mL/min/1.73 sq meter ANION GAP 15 4-20 mmol/L CBC WITHOUT DIFFERENTIAL Collection Time: 04/09/15 10:40 AM Result Value Ref Range WBC 10.4 2.9-11.0 K/uL RBC 3.81 3.77-5.57 M/uL HEMOGLOBIN 9.2 (L) 11.9-16.3 g/dL HEMATOCRIT 32.1 (L) 34.4-51.6 % MCV 84.3 82.4-103.2 fL MCH 24.1 (L) 26.2-32.6 pg MCHC 28.6 (L) 30.2-35.0 g/dL PLATELETS 213 137-410 K/uL MPV 8.6 7.4-11.9 fL RDW 16.8 (H) 11.1-14.5 % General appearance: alert, in no distress Lungs: clear to auscultation bilaterally, normal respiratory effort Heart: normal rate, regular rhythm, normal S1, S2, no murmurs, rubs, clicks or g allops Abdomen: Soft, non-tender. Bowel sounds normal. No masses, no organomegaly. Extremities: extremities normal, atraumatic, no cyanosis or edema, intact distal pulses, moves all extremities equally, no edema, redness or tenderness in the c sauceda or thighs, normal strength, normal tone Assessment: Principal Problem: Pneumonia Plan: Continue current antibiotics, duoneb Encouraged good hydration and consider d/c IVF tomorrow Attempt to wean O2 when able Anemia noted on today's labs -- will check iron studies on tomorrow's labs Potassium low, will replace orally MENTUM CONSULTANT * Mary Kohli, PHARMACIST - 04/08/2015 12:17 PM DOCUMENTUM CONSULTANT CrCl ~ 30mL/min and historically less. Decreased Lovenox from 40mg to 30mg anthony y for prophylaxis per protocol. T documented in this encounter H&P Notes * Goyo Aguayo MD - 04/08/2015 11:12 AM DOCUMENTUM CONSULTANT HISTORY OF PRESENT ILLNESS Era Viveros is a 74 y.o. female admitted with pneumonia Subjective HPI Comments: Here with increasing cough and shortness of breath. Seen in rec ently for same and symptoms increasing. Unable to rest or feel comfortable. REVIEW OF SYSTEMS Review of Systems Respiratory: Positive for cough and shortness of breath. HISTORY REVIEW I have reviewed and updated all historical information Objective PHYSICAL EXAM Last Vitals: There were no vitals taken for this visit. Physical Exam Constitutional: She is oriented to [...] intact dist al pulses. Pulmonary/Chest: Effort normal. She has wheezes. She has rales. Lower lobes bilaterally Abdominal: Soft. Bowel sounds are normal. Musculoskeletal: Normal range of motion. Neurological: She is alert and oriented to person, place, and time. Skin: Skin is warm and dry. Nursing note and vitals reviewed. DIAGNOSTICS I have reviewed all of the patient's diagnostics., CBC: Lab Results Component Value Date/Time WBC 13.4* 04/08/2015 10:22 AM RBC 4.72 04/08/2015 10:22 AM HGB 11.4* 04/08/2015 10:22 AM HCT 38.7 04/08/2015 10:22 AM PLT 275 04/08/2015 10:22 AM , BMP: Lab Results Component Value Date/Time GLUCOSE 135* 04/08/2015 10:22 AM NA 142 04/08/2015 10:22 AM K 3.3* 04/08/2015 10:22 AM CL 104 04/08/2015 10:22 AM CO2 22 04/08/2015 10:22 AM BUN 14 04/08/2015 10:22 AM CREAT 1.48* 04/08/2015 10:22 AM CA 8.8 04/08/2015 10:22 AM , ABGs: Lab Results Component Value Date/Time BASEEXCESS 1.0 04/08/2015 10:22 AM , Radiology studies: cxr-bilateral lower lobe infiltrates Assessment ASSESSMENT/PLAN: Pneumonia Plan- Rocephin and azithromycin, oxygen support and duoneb MENTUM CONSULTANT documented in this encounter Miscellaneous Notes * Care Plan - Emi Paris Physical Therapist - 04/13/2015 2:58 PM DOCUMENTUM CONSULTANT Problem: Physical Mobility, Impaired (Adult) Goal: Patient-specific goals Pt to be indep with all transfers Pt to ambulate 200 with no assistive device with no loss of balance. Outcome: Completed Date Met: 04/13/15 [facility] Inpatient Physical Therapy - Discharge Summary - Acute Care Era Viveros Discharge Date: 04/12/2015 3:30 PM Treatments Recieved: Gait Training, Transfer Training, Bed Mobility Training and Safety Discharged to: Home Follow-Up Services Recommendations: none Recommend the following treatments continue: Gait Functional Skill Functional Level Comment Goal Met? Ambulation modified independent 200' qualified for home O2 yes Transfers modified independent yes Bed Mobility modified independent yes Stairs did not perform n/a Home exercise plan was not required or appropriate Emi Garcia PT 2 :58 PM DOCUMENTUM CONSULTANT * Care Plan - Nitesh Martinez RN - 04/12/2015 11:46 AM DOCUMENTUM CONSULTANT Problem: Pneumonia (Adult) Goal: Prevent/Manage Potential Problems Signs and symptoms of listed problems will be absent or manageable. Outcome: Progressing Problem: General Plan of Care (Adult, Obstetrics) Goal: Individualization/Patient-Specific Goal (Adult, Obstetrics) The patient and/or their screening representative will achieve their patient-specific goal s related to the plan of care. The patient-specific goals include: Feel better a nd go home Outcome: Progressing Problem: Fall/Trauma/Injury Risk (Adult) Goal: Fall/Trauma/Injury Risk: Absence of Trauma/Injury/Falls Patient will demonstrate the desired outcomes. Outcome: Progressing MENTUM CONSULTANT * Care Plan - Emi Paris Physical Therapist - 04/12/2015 7:24 AM DOCUMENTUM CONSULTANT Problem: Physical Mobility, Impaired (Adult) Goal: Patient-specific goals Pt to be indep with all transfers Pt to ambulate 200 with no assistive device with no loss of balance. Outcome: Progressing PHYSICAL THERAPY TREATMENT NOTE Date of service: 04/11/15 Time In: 1428 Time Out: 1438 Total Time: 10 Therapy Recommendation for DC Planning: Home Charges - IN MINUTES: Gait - 10 PRECAUTIONS: fall precautions Equipment:: IV, Oxygen 2 Liters/min and Telemetry Weight Bearing: full weight bearing on right lower, left lower extremity/ies Subjective: Pt hoping to go home tomorrow. Qualifies for home O2 due to drop in O2 sats with activity Treatment Gait Assistance Distance Devices modified independent 100 feet none Gait pattern/Impairments: Steady ambulation, limited only but SOB. Tolerated ac tivity well. Pt reports it is getting easier each time Oxygen Saturation Status Assessment Assessment Oxygen Saturation Heart Rate Oxygen Saturation status without 02 at rest 89-90 % 85 BPM Oxygen Saturation status with mobility /s O2 84 % 105 BPM Oxygen Saturation status following activity /c o2 91 % 90 BPM Time Required for Recovery 90seconds MAX 02 obtained 91 % Oxygen used: 2 liters/min via nasal cannula Comments: Pt qualifies for O2 for home use during the day Emi Garcia, PT Education: Patient demonstrated understanding, needs reinforcement and will need further training in formal therapy sessions with safety education Status After Treatment seated in chair with call light within reach Plan Patient plan of care is progressing 7 :24 AM DOCUMENTUM CONSULTANT * Care Plan - Luli Kyle, ADARSH - 04/12/2015 4:28 AM DOCUMENTUM CONSULTANT PW PUL: PNEUMONIA - ADULT, ADMIT TO MED SURG Pathway Day 4 Hemodynamic: Temp </= 100.4F (38C), HR</=100/min, Resp </= 24/min, SBP > /=90mmHg Met Nutrition: Able to maintain nutrition and oral intake without increase in respiratory symptoms or nutrition needs identified and arrangements made for dis charge. Met Respiratory: Patient's oxygen saturation maintained above 90% on room air unless otherwise specified or planning home oxygen Met Symptom Management: Patient reports improvement in symptoms since arrival. Met Discharge Planning/Patient Education: Patient or family states names of or al antibiotics, and understands the importance of completing therapy course and follow-up appointment with physician, verbalizes importance of nutrition and flu id intake, progessive activity and signs and symptoms to report to the physician . Met PW PUL: PNEUMONIA - ADULT, ADMIT TO MED SURG Pathway Day 4 Pneumovax vaccine administered or documented 'as current' in historical im munizations and influenza vaccine as indicated. Not Met MEDICATION GOAL NOT MET; CONTACT PROVIDER FOR PLAN OF CARE/PLAN FOR ORAL C ONVERSION - Still needs pneumonia vaccination. Fall/Trauma/Injury Risk (Adult) Fall/Trauma/Injury Risk: Absence of Trauma/Injury/Falls Progressing General Plan of Care (Adult, Obstetrics) Individualization/Patient-Specific Goal (Adult, Obstetrics) Progressing Plan of Care Review (Adult, Obstetrics) Progressing Identify Discharge Needs Progressing Physical Mobility, Impaired (Adult) Patient-specific goals Progressing Pneumonia (Adult) Prevent/Manage Potential Problems Progressing MENTUM CONSULTANT * Care Plan - Luli Kyle RN - 04/11/2015 10:19 PM DOCUMENTUM CONSULTANT Problem: General Plan of Care (Adult, Obstetrics) Goal: Plan of Care Review (Adult, Obstetrics) The patient and/or their screening representative will communicate an understanding of the ir plan of care. Outcome: Progressing MENTUM CONSULTANT * Care Plan - Sarah Urban RN - 04/11/2015 2:38 PM DOCUMENTUM CONSULTANT Problem: General Plan of Care (Adult, Obstetrics) Goal: Identify Discharge Needs Patients discharge needs are identified. Outcome: Progressing Discharge Planning Meeting Notes Patient Name: Era Viveros Admit Date: 04/08/2015 Possible DC Date: 04/14/2015 Prior Services: None Agency used: None Discharge Location: Home with support of and family. Discharge Needs Ongoing Services: The patient lives with her and was not receiving any assistance in her home prior to this admission. While hospitalized, she is recei ving oxygen, respiratory therapy treatments, IV antibiotics, IV fluids and IV me dication for nausea to treat pneumonia. New Services Needed: Possible need for Home Health Care and a need for oxygen to have in the home Therapy Needs: Physical therapy Services received from: Karmen Those in attendance: "Sarah Urban RN","Jayne Jiménez, PAPER PATTERN FOLDER","Emi Garcia MSPT ","Susan Ramos RN", [facility] MENTUM CONSULTANT * Care Plan - Kimberlee Harris, [employer] - 04/11/2015 10:08 AM DOCUMENTUM CONSULTANT Problem: Physical Mobility, Impaired (Adult) Goal: Patient-specific goals Pt to be indep with all transfers Pt to ambulate 200 with no assistive device with no loss of balance. Outcome: Progressing PHYSICAL THERAPY TREATMENT NOTE Date of service: 04/11/2015 Time In: 928 Time Out: 938 Total Time: 10 Therapy Recommendation for DC Planning: Home Charges - IN MINUTES: Gait - 10 PRECAUTIONS: fall precautions Equipment:: Oxygen 2 Liters/min Weight Bearing: full weight bearing on right lower, left lower extremity/ies Subjective:Pt reports she feels tired today. Treatment Bed Mobility Assistance Transfers Assistance Devices modified independent modified independent None Comments:No safety concerns with transfers. Gait Assistance Distance Devices supervision 200 feet none Gait pattern/Impairments: O2 is not used during amb today. Pt reports she does not feel SOB, but she feels very tired after amb. "My legs feels like they could just give way." May be able amb on her own soon. SBA for safety only. Education: Patient verbalized understanding with safety education Status After Treatment lying in bed with call light within reach Plan Patient plan of care is progressing Electronically signed by Kimberlee Harris [employer] at 016 10:08 AM DOCUMENTUM CONSULTANT * Care Plan - Luli Kyle RN - 04/11/2015 4:55 AM DOCUMENTUM CONSULTANT PW PUL: PNEUMONIA - ADULT, ADMIT TO MED SURG Pathway Day 3 Hemodynamic: Temp </= 100.4F (38C), HR</=100/min, Resp </= 24/min, SBP > /=90mmHg Met Nutrition Management: Able to maintain nutrition and oral intake without i ncrease in respiratory symptoms. Met Respiratory: Patient's oxygen saturation maintained above 90% on room air unless otherwise specified or planning home oxygen Met Symptom Management: Patient reports improvement in symptoms since arrival Met Activity: Patient able to tolerate activity appropriate for discharge loca tion or post acute services arranged Met Discharge Planning: Patient or health care delegate is an active participa nt in discharge planning. Met Fall/Trauma/Injury Risk (Adult) Fall/Trauma/Injury Risk: Absence of Trauma/Injury/Falls Progressing General Plan of Care (Adult, Obstetrics) Individualization/Patient-Specific Goal (Adult, Obstetrics) Progressing Plan of Care Review (Adult, Obstetrics) Progressing Identify Discharge Needs Progressing Physical Mobility, Impaired (Adult) Patient-specific goals Progressing Pneumonia (Adult) Prevent/Manage Potential Problems Progressing MENTUM CONSULTANT * Care Plan - Luli Kyle RN - 04/10/2015 11:23 PM DOCUMENTUM CONSULTANT Problem: General Plan of Care (Adult, Obstetrics) Goal: Plan of Care Review (Adult, Obstetrics) The patient and/or their screening representative will communicate an understanding of the ir plan of care. Outcome: Progressing MENTUM CONSULTANT * Care Plan - Azul Urban RN - 04/10/2015 8:18 PM DOCUMENTUM CONSULTANT Problem: Pneumonia (Adult) Goal: Prevent/Manage Potential Problems Signs and symptoms of listed problems will be absent or manageable. Outcome: Progressing Problem: General Plan of Care (Adult, Obstetrics) Goal: Plan of Care Review (Adult, Obstetrics) The patient and/or their screening representative will communicate an understanding of the ir plan of care. Outcome: Progressing Problem: Fall/Trauma/Injury Risk (Adult) Goal: Fall/Trauma/Injury Risk: Absence of Trauma/Injury/Falls Patient will demonstrate the desired outcomes. Outcome: Progressing MENTUM CONSULTANT * Care Plan - Azul Urban RN - 04/10/2015 8:16 PM DOCUMENTUM CONSULTANT PW PUL: PNEUMONIA - ADULT, ADMIT TO MED SURG Pathway Day 3 Hemodynamic: Temp </= 100.4F (38C), HR</=100/min, Resp </= 24/min, SBP > /=90mmHg Met Nutrition Management: Able to maintain nutrition and oral intake without i ncrease in respiratory symptoms. Met Respiratory: Patient's oxygen saturation maintained above 90% on room air unless otherwise specified or planning home oxygen Met Symptom Management: Patient reports improvement in symptoms since arrival Met Activity: Patient able to tolerate activity appropriate for discharge loca tion or post acute services arranged Met Discharge Planning: Patient or health care delegate is an active participa nt in discharge planning. Met Fall/Trauma/Injury Risk (Adult) Fall/Trauma/Injury Risk: Absence of Trauma/Injury/Falls Progressing General Plan of Care (Adult, Obstetrics) Individualization/Patient-Specific Goal (Adult, Obstetrics) Progressing Plan of Care Review (Adult, Obstetrics) Progressing Identify Discharge Needs Progressing Physical Mobility, Impaired (Adult) Patient-specific goals Progressing Pneumonia (Adult) Prevent/Manage Potential Problems Progressing MENTUM CONSULTANT * Care Plan - Luli Kyle RN - 04/09/2015 10:28 PM DOCUMENTUM CONSULTANT Problem: General Plan of Care (Adult, Obstetrics) Goal: Plan of Care Review (Adult, Obstetrics) The patient and/or their screening representative will communicate an understanding of the ir plan of care. Outcome: Progressing MENTUM CONSULTANT * Care Plan - Azul Urban RN - 04/09/2015 5:56 PM DOCUMENTUM CONSULTANT PW PUL: PNEUMONIA - ADULT, ADMIT TO MED SURG Pathway Day 2 Hemodynamic: Temp </= 100.4F (38C), HR</=100/min, Resp </= 24/min, SBP > /=90mmHg Met Nutrition: Able to maintain nutrition and fluid intake without increase in respiratory symptoms Met Respiratory: Patient's oxygen saturation maintained above 90% unless other dumont specified Met Symptom Management: Patient reports improvement in symptoms since arrival. Met Activity: Patient able to sit up in chair for greater than or equal to 20 minutes or PT consult initiated. Met Discharge Planning: Patient or health care delegate is an active participa nt in discharge planning. Met Fall/Trauma/Injury Risk (Adult) Fall/Trauma/Injury Risk: Absence of Trauma/Injury/Falls Progressing General Plan of Care (Adult, Obstetrics) Individualization/Patient-Specific Goal (Adult, Obstetrics) Progressing Plan of Care Review (Adult, Obstetrics) Progressing Identify Discharge Needs Progressing Physical Mobility, Impaired (Adult) Patient-specific goals Progressing Pneumonia (Adult) Prevent/Manage Potential Problems Progressing MENTUM CONSULTANT * Care Plan - Azul Urban RN - 04/09/2015 5:56 PM DOCUMENTUM CONSULTANT Problem: Pneumonia (Adult) Goal: Prevent/Manage Potential Problems Signs and symptoms of listed problems will be absent or manageable. Outcome: Progressing Problem: General Plan of Care (Adult, Obstetrics) Goal: Individualization/Patient-Specific Goal (Adult, Obstetrics) The patient and/or their screening representative will achieve their patient-specific goal s related to the plan of care. The patient-specific goals include: Feel better a nd go home Outcome: Progressing Goal: Plan of Care Review (Adult, Obstetrics) The patient and/or their screening representative will communicate an understanding of the ir plan of care. Outcome: Progressing Problem: Fall/Trauma/Injury Risk (Adult) Goal: Fall/Trauma/Injury Risk: Absence of Trauma/Injury/Falls Patient will demonstrate the desired outcomes. Outcome: Progressing MENTUM CONSULTANT * Care Plan - Azul Urban RN - 04/09/2015 5:49 PM DOCUMENTUM CONSULTANT PW PUL: PNEUMONIA - ADULT, ADMIT TO MED SURG Pathway Day 2 Hemodynamic: Temp </= 100.4F (38C), HR</=100/min, Resp </= 24/min, SBP > /=90mmHg Met Nutrition: Able to maintain nutrition and fluid intake without increase in respiratory symptoms Met Respiratory: Patient's oxygen saturation maintained above 90% unless other dumont specified Met Symptom Management: Patient reports improvement in symptoms since arrival. Met Activity: Patient able to sit up in chair for greater than or equal to 20 minutes or PT consult initiated. Met Discharge Planning: Patient or health care delegate is an active participa nt in discharge planning. Met Fall/Trauma/Injury Risk (Adult) Fall/Trauma/Injury Risk: Absence of Trauma/Injury/Falls Progressing General Plan of Care (Adult, Obstetrics) Individualization/Patient-Specific Goal (Adult, Obstetrics) Progressing Plan of Care Review (Adult, Obstetrics) Progressing Identify Discharge Needs Progressing Physical Mobility, Impaired (Adult) Patient-specific goals Progressing Pneumonia (Adult) Prevent/Manage Potential Problems Progressing MENTUM CONSULTANT * Care Plan - Tiki Jiménez, Physical Therapist - 04/09/2015 12:10 PM DOCUMENTUM CONSULTANT Problem: Physical Mobility, Impaired (Adult) Goal: Patient-specific goals Pt to be indep with all transfers Pt to ambulate 200 with no assistive device with no loss of balance. Outcome: Progressing Acute Care Physical Therapy Evaluation Evaluation Date: 04/09/2015 Start Time: 845 Stop Time: 905 Admit Date: 04/08/2015 Diagnosis: pneumonia Reason for therapy consult: poor endurance requiring therapeutic conditioning pr adán Physician: Dr. Goyo Aguayo History: Past Medical History Diagnosis Date Gout GERD (gastroesophageal reflux disease) Chronic ischemic heart disease, unspecified Status post colonoscopy with polypectomy 04/29/2009 Weight Bearing: full weight bearing on both lower extremity/ies PRECAUTIONS: oxygen precautions Equipment:: IV Oxygen 3 Liters/min Subjective Information provided by: patient Patient lives with their spouse Home Environment: 2-Story home Comment: was totally indep with no assistive device prior to hospitalization Prior Level Of Function Bed Mobility Transfers independent independent Ambulation: Device Distance Level of assist Comments none Household, Community. [place] Wheelchair Stairs not applicable UMA/Independent with stairs Prior ADL Function WorkStatus independent: Is retired Objective Cognition: Person, Place, Date and Situation Current Status: Bed Mobility Transfers independent: supervision: Ambulation: Device Distance Level of assist rolling walker 200 ' Supervision / Standby Assist Comments: no significant SOB noted Wheelchair Stairs not tested did not perform: Strength: Right LE Left LE General UE 4 4 4 Balance Static Sitting Dynamic Sitting Static Standing Dynamic Standing good good good good Sensation: not assessed Goals SEE PLAN OF CARE FOR DOCUMENTATION OF GOALS TO BE COMPLETED DURING HOSPITAL STAY . Meets skilled criteria for skilled (PT, OT, PAPER PATTERN FOLDER) treatment. Patient would benefit from PT for gait training to improved mobility and toleran ce to activitiy Recommended DC disposition: Home Status After Therapy Session sitting in chair with call light and phone within reach Therapist's Signature: Tiki Jiménez, PT MENTUM CONSULTANT * Care Plan - Luli Kyle, RN - 04/09/2015 4:20 AM DOCUMENTUM CONSULTANT PW PUL: PNEUMONIA - ADULT, ADMIT TO MED SURG Pathway Day 1 Respiratory: No signs and symptoms of respiratory distress. Met Respiratory: Patient's oxygen saturation maintained above 90% unless other dumont specified Met Symptom Management: Patient reports improvement in symptoms since arrival. Met Activity: Patient able to sit up in chair for greater than or equal to 20 minutes in the first 24 hours. Met Discharge Planning: Discharge needs identified and/or admission screening assessments completed. Met PW PUL: PNEUMONIA - ADULT, ADMIT TO MED SURG Pathway Day 1 Hemodynamic: Temp </= 100.4F (38C), HR</=100/min, Resp </= 24/min, SBP > /=90mmHg Not Met HEART RATE GREATER THAN 90 Fall/Trauma/Injury Risk (Adult) Fall/Trauma/Injury Risk: Absence of Trauma/Injury/Falls Progressing General Plan of Care (Adult, Obstetrics) Individualization/Patient-Specific Goal (Adult, Obstetrics) Progressing Plan of Care Review (Adult, Obstetrics) Progressing Identify Discharge Needs Progressing Pneumonia (Adult) Prevent/Manage Potential Problems Progressing MENTUM CONSULTANT * Care Plan - Luli Kyle, RN - 04/09/2015 12:27 AM DOCUMENTUM CONSULTANT Problem: General Plan of Care (Adult, Obstetrics) Goal: Plan of Care Review (Adult, Obstetrics) The patient and/or their screening representative will communicate an understanding of the ir plan of care. Outcome: Progressing MENTUM CONSULTANT * Care Plan - Nitesh Martinez RN - 04/08/2015 5:53 PM DOCUMENTUM CONSULTANT PW PUL: PNEUMONIA - ADULT, ADMIT TO MED SURG Pathway Day 1 Hemodynamic: Temp </= 100.4F (38C), HR</=100/min, Resp </= 24/min, SBP > /=90mmHg Met Respiratory: No signs and symptoms of respiratory distress. Met Respiratory: Patient's oxygen saturation maintained above 90% unless other dumont specified Met Symptom Management: Patient reports improvement in symptoms since arrival. Met Activity: Patient able to sit up in chair for greater than or equal to 20 minutes in the first 24 hours. Met Discharge Planning: Discharge needs identified and/or admission screening assessments completed. Met Fall/Trauma/Injury Risk (Adult) Fall/Trauma/Injury Risk: Absence of Trauma/Injury/Falls Progressing General Plan of Care (Adult, Obstetrics) Individualization/Patient-Specific Goal (Adult, Obstetrics) Progressing Plan of Care Review (Adult, Obstetrics) Progressing Identify Discharge Needs Progressing Pneumonia (Adult) Prevent/Manage Potential Problems Progressing MENTUM CONSULTANT * Care Plan - Nitesh Martinez RN - 04/08/2015 3:50 PM DOCUMENTUM CONSULTANT Problem: Pneumonia (Adult) Goal: Prevent/Manage Potential Problems Signs and symptoms of listed problems will be absent or manageable. Outcome: Progressing Problem: General Plan of Care (Adult, Obstetrics) Goal: Individualization/Patient-Specific Goal (Adult, Obstetrics) The patient and/or their screening representative will achieve their patient-specific goal s related to the plan of care. The patient-specific goals include: Feel better a nd go home Outcome: Progressing Problem: Fall/Trauma/Injury Risk (Adult) Goal: Fall/Trauma/Injury Risk: Absence of Trauma/Injury/Falls Patient will demonstrate the desired outcomes. Outcome: Progressing MENTUM CONSULTANT documented in this encounter Plan of Treatment Not on filedocumented as of this encounter Procedures Comments Procedure Name Priority Date/Time Associated Diag nosis BRAIN NATRIURETIC Routine 04/12/2015 PEPTIDE, BNP OR PROBNP 6:15 AM DOCUMENTUM CONSULTANT CBC WITH DIFFERENTIAL Stat 04/11/2015 11:25 AM DOCUMENTUM CONSULTANT ECHO COMPLETE Routine 04/11/2015 10:59 AM DOCUMENTUM CONSULTANT XR CHEST PA AND LATERAL 2 Routine 04/11/2015 VW 9:18 AM DOCUMENTUM CONSULTANT OCCULT BLOOD GUAIAC Routine 04/11/2015 DIAGNOSTIC 9:07 AM DOCUMENTUM CONSULTANT CBC WITH DIFFERENTIAL Routine 04/11/2015 5:30 AM DOCUMENTUM CONSULTANT BASIC METABOLIC PANEL Routine 04/11/2015 5:30 AM DOCUMENTUM CONSULTANT VITAMIN B12 AND FOLATE Routine 04/10/2015 5:35 AM DOCUMENTUM CONSULTANT IRON, TIBC, AND PERCENT Routine 04/10/2015 SATURATION 5:35 AM DOCUMENTUM CONSULTANT CBC WITH DIFFERENTIAL Routine 04/10/2015 5:35 AM DOCUMENTUM CONSULTANT BASIC METABOLIC PANEL Routine 04/10/2015 5:35 AM DOCUMENTUM CONSULTANT CBC WITHOUT DIFFERENTIAL Routine 04/09/2015 10:40 AM DOCUMENTUM CONSULTANT BASIC METABOLIC PANEL Routine 04/09/2015 10:40 AM DOCUMENTUM CONSULTANT documented in this encounter Results * BRAIN NATRIURETIC PEPTIDE, BNP OR PROBNP (04/12/2015 6:15 AM DOCUMENTUM CONSULTANT) Pathologist [facility] PROBNP, N 1,282 (H) 0 - 125 pg/mL [facility] [place] Specimen Blood Performing Organization Address City/State/[facility] Ph one Number [facility] CLIA# [id number] [place] [address] - [place] [address] [facility] * CBC WITH DIFFERENTIAL (04/11/2015 11:25 AM DOCUMENTUM CONSULTANT) [facility] WBC 7.0 2.9 - 11.0 K/uL [facility] [place] RBC 3.63 (L) 3.77 - 5.57 M/uL [facility] [place] HEMOGLOBIN 8.8 (L) 11.9 - 16.3 g/dL [facility] [place] HEMATOCRIT 29.6 (L) 34.4 - 51.6 % [facility] [place] MCV 81.6 (L) 82.4 - 103.2 fL [facility] [place] MCH 24.3 (L) 26.2 - 32.6 pg [facility] [place] MCHC 29.8 (L) 30.2 - 35.0 g/dL [facility] [place] RDW 17.0 (H) 11.1 - 14.5 % [facility] [place] PLATELETS 259 137 - 410 K/uL [facility] [place] MPV 8.2 7.4 - 11.9 fL [facility] [place] NEUTROPHILS 74 (H) 43 - 73 % [facility] [place] LYMPHOCYTES 17 (L) 19 - 47 % [facility] [place] MONOCYTES 7 3 - 9 % [facility] [place] EOSINOPHILS 2 0 - 6 % [facility] [place] BASOPHILS 0 0 - 1 % [facility] [place] NEUTROPHIL 5.14 1.30 - 7.60 K/uL [facility] [place] LYMPHOCYTE 1.19 0.60 - 4.90 K/uL [facility] [place] MONOCYTE 0.48 0.10 - 0.90 K/uL [facility] [place] EOSINOPHIL 0.13 0.00 - 0.40 K/uL [facility] [place] BASOPHILS 0.01 0.00 - 0.10 K/uL [facility] [place] Specimen Blood Performing Organization Address City/State/[facility] Ph [facility] Number [facility] CLIA# [id number] [place] [address] - [place] [address] [facility] * ECHO COMPLETE (04/11/2015 10:59 AM DOCUMENTUM CONSULTANT) Specimen Impressions Performed At : 1. Possibility of hypokinesis of a sm all segment in the posterior basal region cannot be completely ruled out. 2. Left ventricular contraction other dumont unremarkable with an ejection fraction around 60-65%. 3. Mild mitral and tricuspid regurgit ation and insignificant pulmonic regurgitation. 4. Very mild diastolic dysfunction of the left ventricle (relaxation abnormality). Narrative Performed At DATE OF REPORT: 04/11/2015 : 1940 M mode echocardiogram reveals left vent ricle measuring 4.83 cm in diastole and 3.51 cm in systole. Septum and the posterior wall thickness is normal. Aortic root measures 2.9 cm. Left atr ium measures 3.2 cm. 2D echocardiogram done in multiple view s reveals fairly normal left ventricular contraction with an ejectio n fraction that could be around 60-65% except for a small segment in th e posterior basal region which could be hypokinetic. Because of the qu ality the echocardiogram is not very good. It is very difficult to be c ertain about this finding. Mitral leaflets appear unremarkable. One of th e aortic leaflets appears slightly thickened but the aortic cusp separatio n is normal. Tricuspid leaflets are normal. Right ventricular contraction normal. No pericardial effusion noted. Color flow and doppler study reveals mi tral inflow pattern suggestive of very mild diastolic dysfunction of the left ventricle. Mild mitral, tricuspid and insignificant pulmonic re gurgitation noted. Pulmonary artery systolic pressure could be around 30-35 mmHg. * XR CHEST PA AND LATERAL (04/11/2015 9:18 AM DOCUMENTUM CONSULTANT) Specimen Impressions Performed At IMPRESSION: INTERFACE SYSTEM 1. Large hiatal hernia with increase in size. 2. Pleural effusions with some basilar atelectasis and infiltrate. Minor right midlung atelectasis or infiltrate. Electronically Signed By: Stefan frederick MD, Signed On: 04/11/2015 9:39 AM Narrative Performed At RADIOLOGIC EXAM: Portable chest. April.902 hours INTERFACE SYSTEM INDICATION: Cough. Shortness of breath. FINDINGS: Comparison to prior studies o f April 08 and April 02, 2015. The heart remains enlarged with large hiatal hernia noted. There is dev elopment of small bilateral pleural effusion. Some mild areas of strandy atelectasis and infiltrate are noted as well in the lung base. There is no pneumothorax. Procedure Note Interface, [facility] Incoming Radiology Results - 04/11/2015 9:43 AM DOCUMENTUM CONSULTANT RADIOLOGIC EXAM: Portable chest. April.902 hours INDICATION: Cough. Shortness of breath. FINDINGS: Comparison to prior studies of April 08 and April 02, 2015. The heart remains enlarged with large hiatal hernia noted. There is development of small bilateral pleural effusion. Some mild areas of strandy atelectasis and infiltrate are noted as well in the lung base. There is no pneumothorax. IMPRESSION IMPRESSION: 1. Large hiatal hernia with increase in size. 2. Pleural effusions with some basilar a telectasis and infiltrate. Minor right midlung atelectasis or infiltrate. Electronically Signed By: Stefan Real MD, Signed On: 04/11/2015 9:39 AM Performing Organization Address City/State/Zipcode Ph one Number INTERFACE SYSTEM INTERFACE SYSTEM Refer to clinic/hospital department * OCCULT BLOOD GUAIAC DIAGNOSTIC (04/11/2015 9:07 AM DOCUMENTUM CONSULTANT) Pathologist [facility] OCCULT BLOOD, Positive (A) Negative [facility] [place] Specimen Stool Performing Organization Address City/State/[facility] Ph one Number [facility] CLIA# [id number] [place] [address] - [place] [address] * CBC WITH DIFFERENTIAL (04/11/2015 5:30 AM DOCUMENTUM CONSULTANT) Pathologist [facility] WBC 8.0 2.9 - 11.0 K/uL [facility] [place] RBC 3.45 (L) 3.77 - 5.57 M/uL [facility] [place] HEMOGLOBIN 8.4 (L) 11.9 - 16.3 g/dL [facility] [place] HEMATOCRIT 29.0 (L) 34.4 - 51.6 % [facility] [place] MCV 84.1 82.4 - 103.2 fL [facility] [place] MCH 24.4 (L) 26.2 - 32.6 pg [facility] [place] MCHC 29.0 (L) 30.2 - 35.0 g/dL [facility] [place] RDW 17.0 (H) 11.1 - 14.5 % [facility] PLATELETS 250 137 - 410 K/uL [facility] MPV 8.8 7.4 - 11.9 fL [facility] NEUTROPHILS 74 (H) 43 - 73 % [facility] LYMPHOCYTES 17 (L) 19 - 47 % [facility] MONOCYTES 7 3 - 9 % [facility] EOSINOPHILS 2 0 - 6 % [facility] BASOPHILS 0 0 - 1 % [facility] NEUTROPHIL 5.89 1.30 - 7.60 K/uL [facility] [place] [facility] LYMPHOCYTE 1.35 0.60 - 4.90 K/uL [facility] MONOCYTE 0.55 0.10 - 0.90 K/uL [facility] [place] EOSINOPHIL 0.15 0.00 - 0.40 K/uL [facility] BASOPHILS 0.02 0.00 - 0.10 K/uL [facility] Specimen Blood Performing Organization Address [facility] one Number [facility] CLIA# [id number] KRISTA LAUREN [address] - [facility] INDU [address] [place] [address] * BASIC METABOLIC PANEL (04/11/2015 5:30 AM DOCUMENTUM CONSULTANT) SODIUM 142 136 - 145 mmol/L [facility] [place] POTASSIUM 3.5 3.5 - 5.1 mmol/L [facility] [place] CHLORIDE 110 (H) 98 - 107 mmol/L [facility] [place] CO2 21 (L) 22 - 29 mmol/L [facility] [place] CALCIUM 7.6 (L) 8.8 - 10.2 mg/dL [facility] [place] BUN 6 (L) 8 - 23 mg/dL [facility] [place] CREATININE 1.16 (H) 0.51 - 0.95 mg/dL [facility] Comment: LABORATORY The GFR result is not [facility] clinically significant on [place] patients <18 or >70 years of age. GLUCOSE 105 (H) 70 - 100 mg/dL [facility] [place] GFR 46 mL/min/1.73 sq meter [facility] Comment: LABORATORY eGFR has not been validated [facility] for use in the elderly (> 70 [place] years of age), women, patients with serious [...] please refer to the GFR result. GFR, 55 mL/min/1.73 sq meter [facility] [place] ANION GAP 11 4 - 20 mmol/L [facility] [place] Specimen Blood Performing Organization Address City/[facility] one Number [facility] CLIA# [id number] KRISTA LAUREN [address] - [facility] INDU [address] [place] [address] * VITAMIN B12 AND FOLATE (04/10/2015 5:35 AM DOCUMENTUM CONSULTANT) VITAMIN B12 996 (H) 211 - 946 pg/mL [facility] FOLATE, SERUM 18.7 7.3 - 26.1 ng/mL [facility] LABOR[facility] Specimen Blood specimen (specimen) Narrative Performed At [facility] ACC #: [id number] [facility] LABOR[facility] Y [facility] Performing Organization Address City/[facility] one Number [facility] CLIA # [id number] OLIVER Garvey [address] [facility] 100 [facility] LABORATORY CLIA # [id number] OLIVER Garvey [address] [facility] [address] [facility] * IRON, TIBC, AND PERCENT SATURATION (04/10/2015 5:35 AM DOCUMENTUM CONSULTANT) Pathologist [facility] IRON 14 (L) 37 - 145 ug/dL [facility] [place] [facility] TIBC 259 230 - 400 ug/dL [facility] IRON % 5 (L) 15 - 50 % [facility] SATURATION [facility] [place] [facility] Specimen Blood Performing Organization Address City/[facility] one Number [facility] CLIA# [id number] [place] [address] - [place] [address] [place] [address] * CBC WITH DIFFERENTIAL (04/10/2015 5:35 AM DOCUMENTUM CONSULTANT) Pathologist [facility] WBC 9.2 2.9 - 11.0 K/uL [facility] [place] RBC 3.58 (L) 3.77 - 5.57 M/uL [facility] [place] [facility] HEMOGLOBIN 8.5 (L) 11.9 - 16.3 g/dL [facility] [place] HEMATOCRIT 29.5 (L) 34.4 - 51.6 % [facility] [place] [facility] MCV 82.4 82.4 - 103.2 fL [facility] [place] [facility] MCH 23.7 (L) 26.2 - 32.6 pg [facility] [place] [facility] MCHC 28.8 (L) 30.2 - 35.0 g/dL [facility] [place] [facility] RDW 16.8 (H) 11.1 - 14.5 % [facility] [place] PLATELETS 209 137 - 410 K/uL [facility] MPV 8.2 7.4 - 11.9 fL [facility] NEUTROPHILS 75 (H) 43 - 73 % [facility] LYMPHOCYTES 18 (L) 19 - 47 % [facility] MONOCYTES 5 3 - 9 % [facility] EOSINOPHILS 1 0 - 6 % [facility] BASOPHILS 1 0 - 1 % [facility] NEUTROPHIL 6.94 1.30 - 7.60 K/uL [facility] [place] LYMPHOCYTE 1.61 0.60 - 4.90 K/uL [facility] [place] MONOCYTE 0.50 0.10 - 0.90 K/uL [facility] [place] EOSINOPHIL 0.11 0.00 - 0.40 K/uL [facility] [place] BASOPHILS 0.04 0.00 - 0.10 K/uL [facility] [place] Specimen Blood Performing Organization Address City/State/[facility] one Number [facility] CLIA# [id number] [place] [address] - [place] INDU [address] [facility] * BASIC METABOLIC PANEL (04/10/2015 5:35 AM DOCUMENTUM CONSULTANT) SODIUM 145 136 - 145 mmol/L [facility] POTASSIUM 3.8 3.5 - 5.1 mmol/L [facility] CHLORIDE 112 (H) 98 - 107 mmol/L [facility] [place] CO2 22 22 - 29 mmol/L [facility] [place] CALCIUM 7.7 (L) 8.8 - 10.2 mg/dL [facility] [place] BUN 9 8 - 23 mg/dL [facility] [place] CREATININE 1.24 (H) 0.51 - 0.95 mg/dL [facility] Comment: LABORATORY The GFR result is not SERVICES - [facility] clinically significant on [place] patients <18 or >70 years of age. GLUCOSE 122 (H) 70 - 100 mg/dL [facility] GFR 42 mL/min/1.73 sq meter [facility] Comment: LABORATORY eGFR has not been validated SERVICES [facility] for use in the elderly (> 70 [place] years of age), women, patients with serious [...] please refer to the GFR result. GFR, 51 mL/min/1.73 sq meter [facility] - [place] ANION GAP 11 4 - 20 mmol/L [facility] LABORATORY [facility] [place] [facility] Specimen Blood Performing Organization Address [facility] one [facility] LABORATORY [facility] CLIA# [id number] [place] [address] - [place] [facility] [address] [place] [address] * CBC WITHOUT DIFFERENTIAL (04/09/2015 10:40 AM DOCUMENTUM CONSULTANT) WBC 10.4 2.9 - 11.0 K/uL [facility] [place] RBC 3.81 3.77 - 5.57 M/uL [facility] [place] HEMOGLOBIN 9.2 (L) 11.9 - 16.3 g/dL [facility] LABORATORY [facility] [place] HEMATOCRIT 32.1 (L) 34.4 - 51.6 % [facility] [place] MCV 84.3 82.4 - 103.2 fL [facility] [place] MCH 24.1 (L) 26.2 - 32.6 pg [facility] [place] MCHC 28.6 (L) 30.2 - 35.0 g/dL [facility] - [place] PLATELETS 213 137 - 410 K/uL [facility] - [place] MPV 8.6 7.4 - 11.9 fL [facility] [place] RDW 16.8 (H) 11.1 - 14.5 % [facility] [place] Specimen Blood Performing Organization Address [facility] one [facility] LABORATORY [facility] CLIA# [id number] [place] KRISTA [address] - [facility] INDU [address] [place] [address] * BASIC METABOLIC PANEL (04/09/2015 10:40 AM DOCUMENTUM CONSULTANT) SODIUM 144 136 - 145 mmol/L [facility] [place] POTASSIUM 3.0 (L) 3.5 - 5.1 mmol/L [facility] LABORATORY [facility] [place] CHLORIDE 108 (H) 98 - 107 mmol/L [facility] LAB[facility]AT[facility] [place] CO2 21 (L) 22 - 29 mmol/L [facility] LABORATORY [facility] [place] CALCIUM 7.8 (L) 8.8 - 10.2 mg/dL [facility] LABORATORY [facility] [place] BUN 12 8 - 23 mg/dL [facility] LAB[facility]ATORY [facility] [place] CREATININE 1.45 (H) 0.51 - 0.95 mg/dL [facility] Comment: LABORATORY The GFR result is not SERVICES [facility] clinically significant on [place] patients <18 or >70 years of age. GLUCOSE 155 (H) 70 - 100 mg/dL [facility] LABORATORY [facility] GFR 35 mL/min/1.73 sq meter [facility] Comment: LABORATORY eGFR has not been validated [facility] for use in the elderly (> 70 [place] years of age), women, patients with serious [...] please refer to the GFR result. GFR, 43 mL/min/1.73 sq meter [facility] - [facility] INDU ANION GAP 15 4 - 20 mmol/L [facility] LABORATORY [facility] Specimen Blood Performing Organization Address City/State/Zipcode Ph one Number [facility] CLIA# [id number] [place] [address] - [place] [address] [facility] documented in this encounter Visit Diagnoses Diagnosis Pneumonia Pneumonia, organism unspecified Iron deficiency anemia Iron deficiency anemia, unspecified documented in this encounter Administered Medications Action Date Dose Rate Site Medication Order MAR Action 04/12/2015 3:00 AM DOCUMENTUM CONSULTANT 0.125 mg ALPRAZolam (XANAX) tablet 0.25 mg Given 0.25 mg, Oral, THREE TIMES DAILY PRN, Starting Sat04/08/15 at 1210, Until Sat04/12/15 at 1808, Anxiety, Routine, Previous Med: ALPRAZolam (XANAX) 0.25 m g tablet - Orig Sig - Take 1 Tab by mouth 3 times daily as needed for Anxiety. , 0.125 mg Given 04/11/2015 8:25 PM DOCUMENTUM CONSULTANT 0.125 mg Given 04/10/2015 9:11 PM DOCUMENTUM CONSULTANT 04/11/2015 1:13 PM DOCUMENTUM CONSULTANT 500 mg azithromycin (ZITHROMAX) IVPB 500 mg New Bag 500 mg, IV, EVERY 24 HOURS, First dose on Sat04/08/15 at 1300, Until Discontinued, Routine, Antibiotic Indication: Pneumonia - Community-acquired(CAP) 500 mg New Bag 04/10/2015 12:57 PM DOCUMENTUM CONSULTANT 500 mg New Bag 04/09/2015 1:14 PM DOCUMENTUM CONSULTANT 04/12/2015 12:12 PM DOCUMENTUM CONSULTANT 1,000 mg 120 mL/hr cefTRIAXone (ROCEPHIN) IVPB 1,000 mg New Bag 1,000 mg, IV, EVERY 24 HOURS (DAILY), First dose on Sat04/08/15 at 1230, Until Discontinued, Routine, Antibiotic Indication: Pneumonia - Community-acquired(CAP) 1,000 mg 120 mL/hr New Bag 04/11/2015 12:34 PM DOCUMENTUM CONSULTANT 1,000 mg 120 mL/hr New Bag 04/10/2015 12:24 PM DOCUMENTUM CONSULTANT 04/12/2015 12:08 PM DOCUMENTUM CONSULTANT 10 mg dicyclomine (BENTYL) capsule 10 mg Given 10 mg, Oral, FOUR TIMES DAILY, First dose on Sat04/11/15 at 0900, Until Discontinued, Routine 10 mg Given 04/12/2015 9:20 AM DOCUMENTUM CONSULTANT 10 mg Given 04/11/2015 8:24 PM DOCUMENTUM CONSULTANT 04/10/2015 6:18 PM DOCUMENTUM CONSULTANT 10 mg dicyclomine (BENTYL) tablet 10 mg Given 10 mg, Oral, FOUR TIMES DAILY, First dose on Sat04/08/15 at 1300, Until Discontinued, Routine, Previous Med: dicyclomine (BENTYL) 20 mg tablet - Jasvir g Sig - Take 1 Tab by mouth 4 times daily before meals and at bedtime., 10 mg Given 04/10/2015 12:55 PM DOCUMENTUM CONSULTANT 10 mg Given 04/10/2015 8:04 AM DOCUMENTUM CONSULTANT 04/10/2015 12:57 PM DOCUMENTUM CONSULTANT 30 mg Abdomina l Tissue enoxaparin (LOVENOX) injection 30 mg Given 30 mg, subCUT, EVERY 24 HOURS, First dose (after last reorder) on Sat04/08/15 at 1300, Until Discontinued, Routine 30 mg Abdominal Tissue Given 04/09/2015 1:15 PM DOCUMENTUM CONSULTANT 30 mg Abdominal Tissue Given 04/08/2015 1:20 PM DOCUMENTUM CONSULTANT 04/12/2015 9:21 AM DOCUMENTUM CONSULTANT 325 mg ferrous sulfate (FEOSOL) tablet 325 mg Given 325 mg, Oral, TWO TIMES DAILY, First dose on Sat04/10/15 at 0930, Until Discontinued, Routine 325 mg Given 04/11/2015 8:24 PM DOCUMENTUM CONSULTANT 325 mg Given 04/11/2015 9:26 AM DOCUMENTUM CONSULTANT 04/12/2015 2:15 PM DOCUMENTUM CONSULTANT 3 mL ipratropium-albuterol (DUONEB) 0.5 mg-3 Given mg(2.5 mg base)/3 mL inhalation solutio n 3 mL 3 mL, Inhalation, EVERY 4 HOURS RESPIRATORY, First dose on Sat04/08/15 a t 1215, Until Discontinued, Routine 3 mL Given 04/12/2015 10:16 AM DOCUMENTUM CONSULTANT 3 mL Given 04/12/2015 6:19 AM DOCUMENTUM CONSULTANT 04/12/2015 9:21 AM DOCUMENTUM CONSULTANT 25 mg metoprolol tartrate (LOPRESSOR) tablet Given 25 mg 25 mg, Oral, TWO TIMES DAILY, First dos e on Sat04/08/15 at 1245, Until Discontinued, Routine, Previous Med: metoprolol tartrate (LOPRESSOR) 25 mg tablet - Orig Sig - Take 1 Tab by mouth 2 times daily., 25 mg Given 04/11/2015 8:25 PM DOCUMENTUM CONSULTANT 25 mg Given 04/11/2015 9:25 AM DOCUMENTUM CONSULTANT 04/12/2015 9:22 AM DOCUMENTUM CONSULTANT 30 mg NIFEdipine (PROCARDIA XL) SR 24 hour Given tablet 30 mg 30 mg, Oral, DAILY, First dose on Sat04/08/15 at 1245, Until Discontinued, Routine, Previous Med: NIFEdipine (PROCARDIA XL) 30 mg Extended Release 2 4 hour tablet - Orig Sig - Take 1 Tab by mouth 2 times daily., 30 mg Given 04/11/2015 9:26 AM DOCUMENTUM CONSULTANT 30 mg Given 04/10/2015 8:03 AM DOCUMENTUM CONSULTANT 04/08/2015 4:14 PM DOCUMENTUM CONSULTANT 4 mg ondansetron (ZOFRAN) 4 mg/2 mL injection Given 4 mg 4 mg, IV, EVERY 6 HOURS PRN, Starting Sat04/08/15 at 1210, Until Sat04/12/15 a t 1808, Nausea/Emesis, Routine 04/12/2015 6:13 AM DOCUMENTUM CONSULTANT 40 mg pantoprazole (PROTONIX) tablet 40 mg Given 40 mg, Oral, DAILY BEFORE BREAKFAST, First dose on Sat04/08/15 at 1245, Until Discontinued, Routine, Previous Med: lansoprazole (PREVACID) 15 mg Oral CpDR - Orig Sig - Take 15 mg by mouth. Qod, 40 mg Given 04/11/2015 6:20 AM DOCUMENTUM CONSULTANT 40 mg Given 04/10/2015 6:06 AM DOCUMENTUM CONSULTANT 04/12/2015 2:04 PM DOCUMENTUM CONSULTANT 0.5 mL Deltoid, Right pneumococcal 13 PCV (PREVNAR 13) PF Given vaccine injection 0.5 mL 0.5 mL, IM, ONE TIME ONLY, 1 dose, Tu04/12/15 at 1345, Routine 04/09/2015 12:42 PM DOCUMENTUM CONSULTANT 40 mEq potassium chloride (K-TAB) SR tablet 40 Given mEq 40 mEq, Oral, ONE TIME ONLY, 1 dose, Sa t 04/09/15 at 1145, Routine 04/12/2015 9:22 AM DOCUMENTUM CONSULTANT 60 mg raloxifene (EVISTA) tablet 60 mg Given 60 mg, Oral, DAILY, First dose on Sat04/08/15 at 1245, Until Discontinued, Routine, Previous Med: EVISTA 60 mg tablet - Orig Sig - Take 1 Tab by mouth daily., 60 mg Given 04/11/2015 9:25 AM DOCUMENTUM CONSULTANT 60 mg Given 04/10/2015 8:04 AM DOCUMENTUM CONSULTANT 04/08/2015 12:52 PM DOCUMENTUM CONSULTANT 10 mL sodium chloride 0.9 % flush injection 10 Given mL 10 mL, IV, SEE ADMIN INSTRUCTIONS, Starting Sat04/08/15 at 1222, Until Sat04/12/15 at 1808, Routine 04/11/2015 11:14 PM DOCUMENTUM CONSULTANT 75 mL/hr sodium chloride 0.9% infusion Bag Switched IV, at 75 mL/hr, CONTINUOUS, Starting Sat04/08/15 at 1215, Until Sat04/12/15 a t 1808, Routine 75 mL/hr Bag Switched 04/11/2015 9:33 AM DOCUMENTUM CONSULTANT 75 mL/hr Bag Switched 04/10/2015 8:44 PM DOCUMENTUM CONSULTANT documented in this encounter
--- OUTSIDE RECORDS SUMMARY | 2019-08-19 16:06 | XMS REPORT | Encounter Summary ---
Author Author [facility] Organization [facility] Address Unknown Phone Unavailable Care Team Providers Care Private Watchman Name Role Phone Carlotta Aguayo MD PCP Unavailable Reason for Visit * Reason Comments Medication Refill Encounter Details Care Team Description Date Type Department Carlotta Aguayo MD NO ADDRESS ON FILE 08/01/2015 Refill [facility] [address] [address] Social History Date Tobacco Use Types Packs/Day Years Used Never Smoker Smokeless Tobacco: Never Used Drinks/Week oz/Week Comments Alcohol Use No Sex Assigned at Date Recorded Not on file documented as of this encounter Plan of Treatment Not on filedocumented as of this encounter Visit Diagnoses Not on filedocumented in this encounter
--- OUTSIDE RECORDS SUMMARY | 2019-08-19 16:06 | XMS REPORT | Encounter Summary ---
Author Author [facility] Organization [facility] Address Unknown Phone Unavailable Care Team Providers Care Adult Basic Education Teacher Name Role Phone Carlotta Aguayo MD PCP Unavailable Encounter Details Care Team Description Date Type Department Carlotta Aguayo MD NO ADDRESS ON FILE 07/01/[address] [address] Social History Date Tobacco Use Types Packs/Day Years Used Never Smoker Smokeless Tobacco: Never Used Drinks/Week oz/Week Comments Alcohol Use No Sex Assigned at Date Recorded Not on file documented as of this encounter Plan of Treatment Not on filedocumented as of this encounter Visit Diagnoses Not on filedocumented in this encounter
--- OUTSIDE RECORDS SUMMARY | 2019-08-19 16:07 | XMS REPORT | Encounter Summary ---
Author Author [facility] Organization [facility] Address Unknown Phone Unavailable Care Team Providers Care Legal Associate Name Role Phone Carlotta Aguayo MD PCP Unavailable Reason for Visit * Reason Comments Medication Refill Encounter Details Care Team Description Date Type Department Carlotta Aguayo MD NO ADDRESS ON FILE 09/21/2014 Refill [facility] [address] [address] Social History Date Tobacco Use Types Packs/Day Years Used Never Smoker Smokeless Tobacco: Never Used Drinks/Week oz/Week Comments Alcohol Use No Sex Assigned at Date Recorded Not on file documented as of this encounter Plan of Treatment Not on filedocumented as of this encounter Visit Diagnoses Not on filedocumented in this encounter
--- OUTSIDE RECORDS SUMMARY | 2019-08-19 16:07 | XMS REPORT | Encounter Summary ---
Author Author [facility] Organization [facility] Address Unknown Phone Unavailable Care Team Providers Care Lease Buyer Name Role Phone Carlotta Aguayo MD PCP Unavailable Reason for Visit * Auth/Cert Referred By Contact Referred To Contact Status Reason Specialty Diagnoses / Procedures [facility] Med Surg [address] [place] [address] Inpatient Diagnoses p neumonia Encounter Details Care Team Description Date Type Department Carlotta Aguayo MD [place] ADDRESS ON FILE [facility] [place]2015 [facility] Outpatient Encounter Laboratory [address] [address] Social History Date Tobacco Use [...] Procedure Name Priority Date/Time Associated Diag nosis INFLUENZA VIRUS A AND B, Stat 04/08/2015 Cough ANTIGEN DETECTION 10:22 AM PAINT LINE OPERATOR SOB (shortness of b reath) CBC WITH DIFFERENTIAL Stat 04/08/2015 Cough 10:22 AM PAINT LINE OPERATOR SOB (shortness of breath) D-DIMER Stat 04/08/2015 Cough 10:22 AM PAINT LINE OPERATOR SOB (shortness of breath) BLOOD GAS ARTERIAL Stat 04/08/2015 Cough 10:22 AM PAINT LINE OPERATOR SOB (shortness of breath) COMPREHENSIVE METABOLIC Stat 04/08/2015 Cough PANEL 10:22 AM PAINT LINE OPERATOR SOB (shortness of b reath) documented in this encounter Results * COMPREHENSIVE METABOLIC PANEL (04/08/2015 10:22 AM PAINT LINE OPERATOR) SODIUM 142 136 - 145 mmol/L [facility] SERVICES - [place] POTASSIUM 3.3 (L) 3.5 - 5.1 mmol/L [facility] SERVICES - [place] CHLORIDE 104 98 - 107 mmol/L [facility] SERVICES - [place] CO2 22 22 - 29 mmol/L [facility] SERVICES - [place] CALCIUM 8.8 8.8 - 10.2 mg/dL [facility] LABORATORY SERVICES - [facility] INDU BUN 14 8 - 23 mg/dL [facility] LABORATORY SERVICES - [facility] INDU CREATININE 1.48 (H) 0.51 - 0.95 mg/dL [facility] Comment: LABORATORY The GFR result is not SERVICES [facility] clinically significant on [place] patients <18 or >70 years of age. GLUCOSE 135 (H) 70 - 100 mg/dL [facility] SERVICES - [place] TOTAL PROTEIN 7.5 6.6 - 8.7 g/dL [facility] SERVICES - [place] ALBUMIN 3.9 3.5 - 5.2 g/dL [facility]ORY SERVICES - [place] BILIRUBIN TOTAL 0.3 <=1.2 mg/dL [facility] LABORATORY SERVICES - [place] ALKALINE 69 35 - 104 U/L [facility] PHOSPHATASE LABORATORY SERVICES - [place] AST 28 10 - 35 U/L [facility]ORY SERVICES - [place] ALT 37 (H) 10 - 35 U/L [facility] SERVICES - [place] GFR 34 mL/min/1.73 sq meter [facility] Comment: LABORATORY eGFR has not been validated [facility] for use in the elderly (> 70 [place] years of age), women, patients with serious [...] GFR result. GFR, 42 mL/min/1.73 sq meter [facility] [place] LAB[facility]ATORY SERVICES - [place] ANION GAP 16 4 - 20 mmol/L [facility] - [place] Specimen Blood Performing Organization Address City/State/Zipcode Ph one Number [facility] LABORATORY SERVICES CLIA# [id number] KRISTA LAUREN [address] - [place] [address] [place] [address] * CBC WITH DIFFERENTIAL (04/08/2015 10:22 AM PAINT LINE OPERATOR) [facility] WBC 13.4 (H) 2.9 - 11.0 K/uL [facility] - [place] RBC 4.72 3.77 - 5.57 M/uL [facility] - [place] HEMOGLOBIN 11.4 (L) 11.9 - 16.3 g/dL [facility] - [place] HEMATOCRIT 38.7 34.4 - 51.6 % [facility] - [facility] INDU MCV 81.9 (L) 82.4 - 103.2 fL [facility] - [place] MCH 24.2 (L) 26.2 - 32.6 pg [facility] - [place] MCHC 29.6 (L) 30.2 - 35.0 g/dL [facility] - [place] RDW 16.8 (H) 11.1 - 14.5 % [facility] - [place] PLATELETS 275 137 - 410 K/uL [facility] - [place] MPV 8.1 7.4 - 11.9 fL [facility] SERVICES - [place] NEUTROPHILS 86 (H) 43 - 73 % [facility] - [facility] INDU LYMPHOCYTES 8 (L) 19 - 47 % [facility] - [place] MONOCYTES 5 3 - 9 % [facility] [place] EOSINOPHILS 0 0 - 6 % [facility] [place] BASOPHILS 0 0 - 1 % [facility] - [place] NEUTROPHIL 11.57 (H) 1.30 - 7.60 K/uL [facility] - [place] LYMPHOCYTE 1.11 0.60 - 4.90 K/uL [facility] - [place] MONOCYTE 0.69 0.10 - 0.90 K/uL [facility] - [place] EOSINOPHIL 0.02 0.00 - 0.40 K/uL [facility] - [place] BASOPHILS 0.03 0.00 - 0.10 K/uL [facility] - [place] Specimen Blood Performing Organization Address City/State/Zipcode Ph one Number [facility] SERVICES CLIA# [id number] KRISTA LAUREN [address] - [place] [address] [place] [address] * INFLUENZA VIRUS A AND B ANTIGEN (04/08/2015 10:22 AM PAINT LINE OPERATOR) INFLUENZA A AG Not Detected Not Detected [facility] [place] INFLUENZA B AG Not Detected Not Detected [facility] [place] Specimen Respiratory specimen - Nasopharyngeal Narrative Performed At Negative results do not rule out infection. Consider further testing if [facility] LABORATORY clinically indicated. SERVICES - [place] INDU Performing Organization Address City/[facility] [place] Ph one Number [facility] SERVICES CLIA# [id number] KRISTA LAUREN [address] - [address] * BLOOD GAS ARTERIAL (04/08/2015 10:22 AM PAINT LINE OPERATOR) PH ARTERIAL 7.52 (H) 7.35 - 7.45 [facility] LABORATORY [facility] [place] PCO2 ARTERIAL 28 (L) 32 - 45 mm Hg [facility] LABORATORY [facility] [place] PO2 ARTERIAL 62 (L) 80 - 100 mm Hg [facility] [place] HCO3 ARTERIAL 23 21 - 27 mmol/L [facility] [place] BASE EXCESS ABG 1.0 -2.0 - 2.0 mmol/L [facility] LABORATORY [facility] [place] O2 SAT EST 94 90 - 97 % [facility] ARTERIAL LABORATORY SERVICES - [place] TCO2, ARTERIAL 23.8 (L) 24.0 - 28.0 mmol/L [facility] [place] OXYGEN MODE Room Air [facility] LABORATORY [facility] [place] Specimen Blood, arterial Narrative Performed At Reference Range Not Established, Unless Indicated ME [facility] SERVICES - [place] Performing Organization Address City/[facility] [place] Ph one Number [facility] SERVICES CLIA# [id number] KRISTA LAUREN [address] - [address] * D-DIMER (04/08/2015 10:22 AM PAINT LINE OPERATOR) D-DIMER QUANT 766.0 (H)Comment: LOT# [id number] 0.0 - 400.0 ng/m L [facility] EXP.DATE 07-28-2015 LABORATORY SERVICES - [place] Specimen Blood Narrative Performed At D-dimer Interpretation [facility] LABORATORY Negative 0 - 400 ng/mL DD[facility] Positive >400 ng/mL [facility] INDU (Concentrations expressed in ng/mL of D -Dimer Unit (DDU)) Clinical performance data were determin ed on an outpatient population. Because D-dimer results are likely to be elevat ed in an inpatient population due to stasis, chronic illness, post-surgery a nd other non-specific conditions known to elevate D-dimer levels, the clinical ut ility of a negative result is not likely to be realized in an inpatient populati on. Therefore, clinical performance results should not be extrapolated to a n inpatient population. Performing Organization Address City/State/Zipcode Ph one Number [facility] LABORATORY SERVICES CLIA# [id number] [place], [place] [address] - [place] [address] documented in this encounter Visit Diagnoses Diagnosis Cough SOB (shortness of breath) Shortness of breath documented in this encounter
--- OUTSIDE RECORDS SUMMARY | 2019-08-19 16:07 | XMS REPORT | Encounter Summary ---
Author Author [facility] Organization [facility] Address Unknown Phone Unavailable Care Team Providers Care Heel Turner Name Role Phone Carlotta Aguayo MD PCP Unavailable Reason for Visit * Reason Comments Medication Refill Encounter Details Care Team Description Date Type Department Jcarlos Lin MD [address] [place] [address] 01/03/2015 Refill [facility] Primar y Care [address] [address] Social History Date Tobacco Use Types Packs/Day Years Used Never Smoker Smokeless Tobacco: Never Used Drinks/Week oz/Week Comments Alcohol Use No Sex Assigned at Date Recorded Not on file documented as of this encounter Plan of Treatment Not on filedocumented as of this encounter Visit Diagnoses Not on filedocumented in this encounter
--- OUTSIDE RECORDS SUMMARY | 2019-08-19 16:07 | XMS REPORT | Encounter Summary ---
Author Author [facility] Organization [facility] Address Unknown Phone Unavailable Care Team Providers Care Teacher Of Gifted Students Name Role Phone Carlotta Aguayo MD PCP Unavailable Encounter Details Care Team Description Date Type Department Guadalupe Alejandro, GASTROENTEROLOGY MANAGER [address] [place] [address] 04/02/2015 [facility] Imaging Se rvices Encounter [address] [address] Social History Date Tobacco Use [...] Capsule mouth 2 times daily OMEGA RED. 01/17/2015 08/01/2015 NIFEdipine (PROCARDIA XL) Take 1 [...] XR CHEST PA AND LATERAL 2 Stat 04/02/2015 Shor tness of breath VW 9:28 AM HAND BOBBIN CLEANER documented in this encounter Results * XR CHEST PA AND LATERAL (04/02/2015 9:28 AM HAND BOBBIN CLEANER) Specimen Impressions Performed At IMPRESSION: INTERFACE SYSTEM Negative chest. Electronically Signed By: Stefan frederick MD, Signed On: 04/02/2015 9:36 AM Narrative Performed At RADIOLOGIC EXAM: Chest 2 view, PA and lateral INTERF SELMA SYSTEM INDICATION:Shortness of breath FINDINGS: Heart size and pulmonary vasc ularity are normal. Lungs are clear of infiltrate. There is minor medial right atelectasis by the hiatal hernia. There is no pneumothorax. Large hiatal hernia is noted. Vertebrae heights are maintained the thoracic spine alignment normal. Procedure Note Interface, [facility] [place] [place] [facility] Incoming Radiology Results - 04/02/2015 9:41 AM HAND BOBBIN CLEANER RADIOLOGIC EXAM: Chest 2 view, PA and lateral INDICATION:Shortness of breath FINDINGS: Heart size and pulmonary vascularity are normal. Lungs are clear of infiltrate. There is minor medial right atelectasis by the hiatal hernia. There is no pneumothorax. Large hiatal hernia is noted. Vertebrae heights are maintained the thoracic spine alignment normal. IMPRESSION IMPRESSION: Negative chest. Electronically Signed By: Stefan Real MD, Signed On: 04/02/2015 9:36 AM Performing Organization Address City/State/Zipcode Ph one Number INTERFACE SYSTEM INTERFACE SYSTEM Refer to clinic/hospital department documented in this encounter Visit Diagnoses Diagnosis Shortness of breath documented in this encounter
--- OUTSIDE RECORDS SUMMARY | 2019-08-19 16:07 | XMS REPORT | Encounter Summary ---
Author Author [facility] Organization [facility] Address Unknown Phone Unavailable Care Team Providers Care Mechanic Chief Name Role Phone Carlotta Aguayo MD PCP Unavailable Encounter Details Care Team Description Date Type Department Carlotta Aguayo MD NO ADDRESS ON FILE [facility], Outpt Lab 12/21/2014 [facility] Outpatient Encounter Laboratory [address] [address] Social History Date Tobacco Use [...] Capsule mouth 2 times daily OMEGA RED. 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 09/21/2014 04/14/2015 furosemide (LASIX) 20 mg Take 1 Tab by 30 Tab 5 tablet mouth daily. 09/16/2014 04/14/2015 colchicine-probenecid Take 1 Tab by 60 Tab 2 (COLBENEMID) 0.5-500 mg mouth daily. TabletIndications: Gout 08/31/2014 01/03/2015 metoprolol tartrate Take 1 Tab by 60 Tab 3 (LOPRESSOR) 25 mg tablet mouth 2 times daily. 08/04/2014 04/14/2015 dicyclomine (BENTYL) 20 Take 1 Tab by 120 Tab 3 mg tablet mouth 4 times daily before meals and at bedtime. 07/19/2014 01/17/2015 NIFEdipine (PROCARDIA XL) Take 1 Tab by 60 Tab 5 30 mg Extended Release 24 mouth 2 times hour tablet daily. 03/17/2014 05/12/2015 ALPRAZolam (XANAX) 0.25 Take 1 Tab by 60 Tab 3 mg tabletIndications: mouth 3 times Anxiety daily as needed for Anxiety. 01/05/2014 01/03/2015 EVISTA 60 mg tablet Take 1 Tab by 30 Tab 11 mouth daily. 08/08/2017 lansoprazole (PREVACID) Take [...] Procedure Name Priority Date/Time Associated Diag nosis LIPID PANEL Stat 12/21/2014 Hyperlipidemia 7:38 AM CDT COMPREHENSIVE METABOLIC Stat 12/21/2014 [facility] ia hypertension PANEL 7:38 AM CDT documented in this encounter Results * LIPID PANEL (12/21/2014 7:38 AM CDT) CHOLESTEROL 242 (H) <200 mg/dL [facility] TRIGLYCERIDE 98 <150 mg/dL [facility] HDL 82 (H) 40 - 59 mg/dL [facility] LDL CALCULATED 140 (H) <100 mg/dL [facility] NON-HDL 160 (H) <130 mg/dL [facility] CHOLESTEROL LABORATORY SERVICES Specimen Blood Narrative Performed At TOTAL CHOLESTEROL mg/dL [facility] Desirable <[address] [facility] Borderline high 200-239 INDU High >=240 [...] Performing Organization Address City/State/Zipcode Ph one Number [facility]ORATORY SERVICES CLIA# [id number] KRISTA LAUREN [address] - [place] [address] [facility] * COMPREHENSIVE METABOLIC PANEL (12/21/2014 7:38 AM CDT) [facility] Signature SODIUM 139 134 - 145 mmol/L [facility] SERVICES - [facility] INDU POTASSIUM 3.8 3.5 - 5.1 mmol/L [facility] SERVICES - [facility] INDU CHLORIDE 105 98 - 107 mmol/L [facility] - [place] CO2 25 22 - 31 mmol/L [facility] SERVICES - [facility] INDU CALCIUM 8.7 8.5 - 10.1 mg/dL [facility] LABORATORY SERVICES - [facility] INDU BUN 26 (H) 7 - 20 mg/dL [facility] LABORATORY SERVICES - [facility] INDU CREATININE 1.80 (H) 0.51 - 0.95 mg/dL [facility] Comment: LABORATORY The GFR result is not SERVICES - [facility] clinically significant on [place] patients <18 or >70 years of age. GLUCOSE 101 (H) 70 - 100 mg/dL [facility] SERVICES - [facility] INDU TOTAL PROTEIN 7.2 6.4 - 8.2 g/dL [facility] LABORATORY SERVICES - [place] ALBUMIN 3.3 (L) 3.4 - 5.0 g/dL [facility] SERVICES - [facility] INDU BILIRUBIN TOTAL 0.2 <=1.1 mg/dL [facility] SERVICES - [place] ALKALINE 83 46 - 116 U/L [facility] PHOSPHATASE LABORATORY SERVICES - [place] AST 24 10 - 40 U/L [facility] LABORATORY SERVICES - [place] ALT 42 14 - 63 U/L [facility] - [place] GFR 28 mL/min/1.73 sq meter [facility] Comment: LABORATORY eGFR has not been validated SERVICES [facility] for use in the elderly [...] please refer to the GFR result. GFR, 33 mL/min/1.73 sq meter [facility] LABORATORY SERVICES - [place] ANION GAP 9 4 - 20 mmol/L [facility] LABORATORY SERVICES - [place] Specimen Blood Performing Organization Address City/State/[facility] Ph one Number [facility] LABORATORY SERVICES CLIA# [id number] [place] [address] - [place] [address] documented in this encounter Visit Diagnoses Diagnosis Essential hypertension Unspecified essential hypertension Hyperlipidemia Other and unspecified hyperlipidemia documented in this encounter
--- OUTSIDE RECORDS SUMMARY | 2019-08-19 16:07 | XMS REPORT | Encounter Summary ---
Author Author [facility] Organization [facility] Address Unknown Phone Unavailable Care Team Providers Care Machine Fancy Stitcher Name Role Phone Carlotta Aguayo MD PCP Unavailable Reason for Visit * Reason Comments Cough was at ER Sat, body hurts f rom coughing so much, x 1 week Encounter Details Care Team Description Date Type Department Carlotta Aguayo MD NO ADDRESS ON FILE Cough (Primary Dx); SOB (shortness of breath); Pneumonia of both lungs due to infectious organism, unspecified part of lung 04/08/2015 Office Visit [facility] [address] [address] Social History Date Tobacco Use Types Packs/Day Years Used Never Smoker Smokeless Tobacco: Never Used Drinks/Week oz/Week Comments Alcohol Use No Sex Assigned at Date Recorded Not on file documented as of this encounter Last Filed Vital Signs Reading Time Taken Comments Vital Sign 130/75 04/08/2015 9:15 AM SENIOR SITE MANAGER Blood Pressure 97 04/08/2015 9:15 AM SENIOR SITE MANAGER Pulse 38 C (100.4 F) 04/08/2015 9:15 AM SENIOR SITE MANAGER Temperature 18 04/08/2015 9:15 AM SENIOR SITE MANAGER Respiratory Rate 91% 04/08/2015 9:15 AM SENIOR SITE MANAGER Oxygen Saturation - - Inhaled Oxygen Concentration 70.3 kg (155 lb) 04/08/2015 9:15 AM SENIOR SITE MANAGER Weight 157.5 cm (5' 2") 04/08/2015 9:15 AM SENIOR SITE MANAGER Height 28.35 04/08/2015 9:15 AM SENIOR SITE MANAGER Body Mass Index documented in this encounter Progress Notes * Goyo Aguayo MD - 04/08/2015 11:23 AM SENIOR SITE MANAGER See H and P OR SITE MANAGER documented in this encounter Plan of Treatment Not on filedocumented as of this encounter Results * XR CHEST PA AND LATERAL (04/08/2015 10:42 AM SENIOR SITE MANAGER) Specimen Impressions Performed At IMPRESSION: INTERFACE SYSTEM Patchy bilateral lower lobe atelectasis /pneumonitis. Moderate-sized hiatal hernia. Electronically Signed By: Ryan Otto MD, Signed On: 04/08/2015 10:54 AM Narrative Performed At EXAM: Two view chest x-ray. INTERFACE SYSTEM CLINICAL INDICATION: Cough. Shortness o f breath. COMPARISON: None. FINDINGS: The heart size and pulmonary vascularit y are within normal limits. Moderate-sized hiatal hernia. Mild patchy bilateral lower lobe atelectasis /pneumonitis. No consolidating pulmonary infiltrates, pneumothorax, or significant pleural ef fusion are identified. Procedure Note Interface, [facility] Incoming Radiology Results - 04/08/2015 10:59 AM SENIOR SITE MANAGER EXAM: Two view chest x-ray. CLINICAL INDICATION: Cough. Shortness of breath. COMPARISON: None. FINDINGS: The heart size and pulmonary vascularity are within normal limits. Moderate- sized hiatal hernia. Mild patchy bilateral lower lobe atelectasis/pneumonitis. No consolidating pulmonary infiltrates, pneumothorax, or significant pleural effusion are identified. IMPRESSION IMPRESSION: Patchy bilateral lower lobe atelectasis/pneumonitis. Moderate-sized hiatal hernia. Electronically Signed By: Ryan Otto MD, Signed On: 04/08/2015 10:54 AM Performing Organization Address City/State/Zipcode Ph one Number INTERFACE SYSTEM INTERFACE SYSTEM Refer to clinic/hospital department * COMPREHENSIVE METABOLIC PANEL (04/08/2015 10:22 AM SENIOR SITE MANAGER) SODIUM 142 136 - 145 mmol/L [facility] POTASSIUM 3.3 (L) 3.5 - 5.1 mmol/L [facility] CHLORIDE 104 98 - 107 mmol/L [facility] CO2 22 22 - 29 mmol/L [facility] CALCIUM 8.8 8.8 - 10.2 mg/dL [facility] BUN 14 8 - 23 mg/dL [facility] CREATININE 1.48 (H) 0.51 - 0.95 mg/dL [facility] Comment: LABORATORY The GFR result is not SERVICES - [facility] clinically significant on [place] patients <18 or >70 years of age. GLUCOSE 135 (H) 70 - 100 mg/dL [facility] LABORATORY SERVICES - [facility] TOTAL PROTEIN 7.5 6.6 - 8.7 g/dL [facility] [place] ALBUMIN 3.9 3.5 - 5.2 g/dL [facility] [place] BILIRUBIN TOTAL 0.3 <=1.2 mg/dL [facility] [place] ALKALINE 69 35 - 104 U/L [facility] PHOSPHATASE [facility]ATORY [facility] [place] AST 28 10 - 35 U/L [facility] [place] ALT 37 (H) 10 - 35 U/L [facility] [place] GFR 34 mL/min/1.73 sq meter [facility] Comment: LABORATORY eGFR has not been validated [facility] for use in the elderly (> 70 [place] years of age), women, patients with serious [...] GFR result. GFR, 42 mL/min/1.73 sq meter [facility] [place] ANION GAP 16 4 - 20 mmol/L [facility] LAB[facility] Specimen Blood Performing Organization Address City/State/Zipcode Ph one Number [facility] CLIA# [id number] [place] [address] [place] [address] [facility] * CBC WITH DIFFERENTIAL (04/08/2015 10:22 AM SENIOR SITE MANAGER) WBC 13.4 (H) 2.9 - 11.0 K/uL [facility] [place] RBC 4.72 3.77 - 5.57 M/uL [facility] LABORATORY SERVICES [facility] HEMOGLOBIN 11.4 (L) 11.9 - 16.3 g/dL [facility] LAB[facility] [place] HEMATOCRIT 38.7 34.4 - 51.6 % [facility] LABORATORY [facility] MCV 81.9 (L) 82.4 - 103.2 fL [facility] [place] MCH 24.2 (L) 26.2 - 32.6 pg [facility] [place] MCHC 29.6 (L) 30.2 - 35.0 g/dL [facility] [place] RDW 16.8 (H) 11.1 - 14.5 % [facility] [place] PLATELETS 275 137 - 410 K/uL [facility] [place] MPV 8.1 7.4 - 11.9 fL [facility] - [place] NEUTROPHILS 86 (H) 43 - 73 % [facility] [place] LYMPHOCYTES 8 (L) 19 - 47 % [...] [place] BASOPHILS 0.03 0.00 - 0.10 K/uL [facility] Specimen Blood Performing Organization Address City/[facility] Ph one Number [facility] CLIA# [id number] [place] [address] - [facility] [address] [place] [address] * INFLUENZA VIRUS A AND B ANTIGEN (04/08/2015 10:22 AM SENIOR SITE MANAGER) INFLUENZA A AG Not Detected Not Detected [facility] - [place] INFLUENZA B AG Not Detected Not Detected [facility] [place] Specimen Respiratory specimen - Nasopharyngeal Narrative Performed At Negative results do not rule out infection. Consider further testing if [facility] clinically indicated. [facility] - [place] Performing Organization Address City/[facility] Ph one Number [facility] CLIA# [id number] [place] [address] - [place] [address] [place] [address] * BLOOD GAS ARTERIAL (04/08/2015 10:22 AM SENIOR SITE MANAGER) PH ARTERIAL 7.52 (H) 7.35 - 7.45 [facility] PCO2 ARTERIAL 28 (L) 32 - 45 mm Hg [facility] PO2 ARTERIAL 62 (L) 80 - 100 mm Hg [facility] HCO3 ARTERIAL 23 21 - 27 mmol/L [facility] BASE EXCESS ABG 1.0 -2.0 - 2.0 mmol/L [facility] LAB[facility] O2 SAT EST 94 90 - 97 % [facility] ARTERIAL [facility] [place] TCO2, ARTERIAL 23.8 (L) 24.0 - 28.0 mmol/L [facility] LAB[facility] OXYGEN MODE Room Air [facility] LAB[facility] Specimen Blood, arterial Narrative Performed At Reference Range Not Established, Unless Indicated ME [facility] Performing Organization Address City/[facility] Ph one Number [facility] SERVICES CLIA# [id number] [place] [address] - [address] * D-DIMER (04/08/2015 10:22 AM SENIOR SITE MANAGER) D-DIMER QUANT 766.0 (H)Comment: LOT# [id number] 0.0 - 400.0 ng/m L [facility] EXP.DATE 07-28-2015 LABORATORY [facility] [place] Specimen Blood Narrative Performed At D-dimer Interpretation [facility] Negative 0 - 400 ng/mL [facility] Positive >400 ng/mL [facility] (Concentrations expressed [...] a n inpatient population. Performing Organization Address City/State/[facility] Ph one Number [facility] CLIA# [id number] [place] [address] [address] documented in this encounter Visit Diagnoses Diagnosis Cough SOB (shortness of breath) Shortness of breath Pneumonia of both lungs due to infectio us organism, unspecified part of lung documented in this encounter Administered Medications Action Date Dose Rate Site Medication Order MAR Action 04/08/2015 10:18 AM SENIOR SITE MANAGER 3 mL ipratropium-albuterol (DUONEB) 0.5 mg-3 Given mg(2.5 mg base)/3 mL inhalation solutio n 3 mL 3 mL, Inhalation, ONE TIME ONLY RESPIRATORY, 1 dose, Sat04/08/15 at 1015 , Routine documented in this encounter
--- OUTSIDE RECORDS SUMMARY | 2019-08-19 16:07 | XMS REPORT | Encounter Summary ---
Author Author [facility] Organization [facility] Address Unknown Phone Unavailable Care Team Providers Care Med Admin Name Role Phone Carlotta Aguayo MD PCP Unavailable Reason for Visit * Reason Comments Gout right foot Encounter Details Care Team Description Date Type Department Carlotta Aguayo MD NO ADDRESS ON FILE Acute idiopathic gout of right foot (Keli raj Dx) 12/31/2014 Office Visit [address] [id number] Social History Date Tobacco Use Types Packs/Day Years Used Never Smoker Smokeless Tobacco: Never Used Drinks/Week oz/Week Comments Alcohol Use No Sex Assigned at Date Recorded Not on file documented as of this encounter Last Filed Vital Signs Reading Time Taken Comments Vital Sign 134/74 12/31/2014 9:37 AM CDT Blood Pressure - - Pulse 36.8 C (98.3 F) 12/31/2014 9:37 AM CDT Temperature - - Respiratory Rate - - Oxygen Saturation - - Inhaled Oxygen Concentration 69.9 kg (154 lb) 12/31/2014 9:37 AM CDT Weight 154.9 cm (5' 1") 12/31/2014 9:37 AM CDT Height 29.1 12/31/2014 9:37 AM CDT Body Mass Index documented in this encounter Progress Notes * Goyo Aguayo MD - 01/24/2015 8:00 AM CDT HISTORY OF PRESENT ILLNESS Era Viveros, a 74 y.o. female. Subjective HPI here with flare up of R foor great metatarsal swelling and red. Uses diureti cs and has not been watching diet. REVIEW OF SYSTEMS Review of Systems Constitutional: Negative for fever, activity change, appetite change, fatigue an d unexpected weight change. HENT: Negative for congestion. Respiratory: Negative for shortness of breath. Cardiovascular: Negative for chest pain. Gastrointestinal: Negative for abdominal pain. Genitourinary: Negative for menstrual problem. Musculoskeletal: Positive for joint swelling, arthralgias and gait problem. Nega tive for neck stiffness. Neurological: Negative for weakness. Objective PHYSICAL EXAM BP 134/74 mmHg | Temp(Src) 98.3 F (36.8 C) | Ht 5' 1" (1.549 m) | Wt 154 lb (69.854 kg) | BMI 29.11 kg/m2 Physical Exam Constitutional: She is oriented [...] Normal range of motion. She exhibits tenderness (R great distal metatarsal). Neurological: She is alert and oriented to person, place, and time. Skin: Skin is warm and dry. There is erythema. Nursing note and vitals reviewed. Assessment ASSESSMENT and PLAN: ICD-9-CM ICD-10-CM 1. Acute idiopathic gout of right foot 274.01 M10.071 dexamethasone (DECADRON) i njection 4 mg methylPREDNISolone Acetate (DEPO-MEDROL) injection 80 mg Current outpatient prescriptions: HYDROcodone-acetaminophen (NORCO) 5-325 mg ta blet, Take 1 Tablet by mouth every 4 hours as needed for Pain, Moderate., Disp: 90 Tablet, Rfl: 0; furosemide (LASIX) 20 mg tablet, Take 1 Tab by mouth daily., Disp: 30 Tab, Rfl: 5; colchicine-probenecid (COLBENEMID) 0.5-500 mg Tablet, Ta ke 1 Tab by mouth daily., Disp: 60 Tab, Rfl: 2 dicyclomine (BENTYL) 20 mg tablet, Take 1 Tab by mouth 4 times daily before meal s and at bedtime., Disp: 120 Tab, Rfl: 3; ALPRAZolam (XANAX) 0.25 mg tablet, Ta ke 1 Tab by mouth 3 times daily as needed for Anxiety., Disp: 60 Tab, Rfl: 3; 0 jeronimo-3 fatty acids-vitamin E (FISH OIL) 1,000 mg Capsule, Take 1 Capsule by mout h daily OMEGA RED. , Disp: , Rfl: ; lansoprazole (PREVACID) 15 mg Oral CpDR, Ta ke 15 mg by mouth. Qod , Disp: , Rfl: aspirin (BABY ASPIRIN) 81 mg Oral Chew, Take 81 mg by mouth. Qod , Disp: , Rfl: ; NIFEdipine (PROCARDIA XL) 30 mg Extended Release 24 hour tablet, Take 1 Tab b y mouth 2 times daily., Disp: 60 Tablet, Rfl: 5; metoprolol tartrate (LOPRESSOR ) 25 mg tablet, Take 1 Tab by mouth 2 times daily., Disp: 60 Tablet, Rfl: 5; EV ISTA 60 mg tablet, Take 1 Tab by mouth daily., Disp: 30 Tablet, Rfl: 11 documented in this encounter Plan of Treatment Not on filedocumented as of this encounter Visit Diagnoses Diagnosis Acute idiopathic gout of right foot documented in this encounter Administered Medications Action Date Dose Rate Site Medication Order MAR Action 12/31/2014 9:54 AM CDT 4 mg Right Up per Outer Quadrant dexamethasone (DECADRON) injection 4 mg Given 4 mg, IM, ONE TIME ONLY, 1 dose, Sat12/31/14 at 0945, Routine 12/31/2014 9:55 AM CDT 80 mg Right Up per Outer Quadrant methylPREDNISolone Acetate (DEPO-MEDROL) Given injection 80 mg 80 mg, IM, ONE TIME ONLY, 1 dose, Sat12/31/14 at 0945, Routine documented in this encounter
--- OUTSIDE RECORDS SUMMARY | 2019-08-19 16:07 | XMS REPORT | Encounter Summary ---
Author Author [facility] Organization [facility] Address Unknown Phone Unavailable Care Team Providers Care Firebreak Cutter Name Role Phone Carlotta Aguayo MD PCP Unavailable Reason for Visit * Reason Comments Medication Refill Encounter Details Care Team Description Date Type Department Carlotta Aguayo MD NO ADDRESS ON FILE 01/03/[address] [facility] [address] [phone] Social History Date Tobacco Use Types Packs/Day Years Used Never Smoker Smokeless Tobacco: Never Used Drinks/Week oz/Week Comments Alcohol Use No Sex Assigned at Date Recorded Not on file documented as of this encounter Plan of Treatment Not on filedocumented as of this encounter Visit Diagnoses Not on filedocumented in this encounter
--- OUTSIDE RECORDS SUMMARY | 2019-08-19 16:07 | XMS REPORT | Encounter Summary ---
Author Author [facility] Organization [facility] Address Unknown Phone Unavailable Care Team Providers Care Insulating Machine Operator Name Role Phone Carlotta Aguayo MD PCP Unavailable Reason for Visit * Reason Comments Cough began Saturday, started a sore throat Nasal Congestion Shortness of Breath pt states her chest feels t ight, O2 91% Encounter Details Care Team Description Date Type Department Guadalupe Alejandro, SURVEY SUPERVISOR [address] [place] [address] Shortness of breath (Primary Dx); Cough 04/02/2015 Office Visit [address] [phone] Social History Date Tobacco Use Types Packs/Day Years Used Never Smoker Smokeless Tobacco: Never Used Drinks/Week oz/Week Comments Alcohol Use No Sex Assigned at Date Recorded Not on file documented as of this encounter Last Filed Vital Signs Reading Time Taken Comments Vital Sign 96/66 04/02/2015 9:08 AM COTTON FARMWORKER Blood Pressure 97 04/02/2015 9:08 AM COTTON FARMWORKER Pulse - - Temperature - - Respiratory Rate 91% 04/02/2015 9:08 AM COTTON FARMWORKER Oxygen Saturation - - Inhaled Oxygen Concentration 69.9 kg (154 lb) 04/02/2015 9:08 AM COTTON FARMWORKER Weight 154.9 cm (5' 1") 04/02/2015 9:08 AM COTTON FARMWORKER Height 29.1 04/02/2015 9:08 AM COTTON FARMWORKER Body Mass Index documented in this encounter Progress Notes * Gaudalupe Alejandro, SURVEY SUPERVISOR - 04/02/2015 9:20 AM COTTON FARMWORKER SUBJECTIVE: Era Viveros is a 74 y.o. female who complains of congestion, sore throat, p ost nasal drip, productive cough and wheezing and shortness of breath for 4 days . She denies a history of chest pain and denies a history of asthma. Patient navarro s not smoke cigarettes. OBJECTIVE: BP 96/66 mmHg | Pulse 97 | Ht 5' 1" (1.549 m) | Wt 154 lb (69.854 kg) | BMI 29.1 1 kg/m2 | SpO2 91% Appearance: alert, well appearing, and in no distress. Eye: normal ENT- bilateral TM normal without fluid or infection, throat normal without eryth meseret or exudate, sinuses nontender, post nasal drip noted and nasal mucosa conges elieser. Chest - wheezing noted all lobes, rhonchi noted bilateral posterior lower lobes . ASSESSMENT: bronchitis PLAN: See additional orders in EMR. Symptomatic therapy suggested: push fluids, rest, gargle warm salt water, use vaporizer or mist prn and antibiotics not indicated, viral condition, discussed with patient. Albuterol nebulizer treatment given depomedrol 80mg and decadron 4mg IM today in clinic Albuterol inhaler prescribed Chest xray - negative Follow up with PCP or ER if symptoms fail to improve or worsen ON FARMWORKER documented in this encounter Miscellaneous Notes * Addendum Note - Chiara Noyola - 04/02/2015 10:34 AM COTTON FARMWORKER Addended by: CHIARA NOYOLA on: 04/02/2015 10:34 AM Modules accepted: Orders ON FARMWORKER * Addendum Note - Chiara Noyola - 04/02/2015 10:20 AM COTTON FARMWORKER Addended by: CHIARA NOYOLA on: 04/02/2015 10:20 AM Modules accepted: Orders, Level of Service ON FARMWORKER documented in this encounter Plan of Treatment Not on filedocumented as of this encounter Results * XR CHEST PA AND LATERAL (04/02/2015 9:28 AM COTTON FARMWORKER) Specimen Impressions Performed At IMPRESSION: INTERFACE SYSTEM [...] thoracic spine alignment normal. Procedure Note Interface, [facility] [place] [facility] Incoming Radiology Results - 04/02/2015 9:41 AM COTTON FARMWORKER RADIOLOGIC EXAM: Chest 2 view, PA and [...] 04/02/2015 9:36 AM Performing Organization Address City/State/Zipcode one Number INTERFACE SYSTEM INTERFACE SYSTEM Refer to clinic/hospital department documented in this encounter Visit Diagnoses Diagnosis Shortness of breath Cough documented in this encounter Administered Medications Action Date Dose Rate Site Medication Order MAR Action 04/02/2015 10:32 AM COTTON FARMWORKER 2.5 mg albuterol (PROVENTIL,VENTOLIN) 2.5 mg /3 Given mL (0.083 %) inhalation solution 2.5 mg 2.5 mg, Inhalation, ONE TIME ONLY RESPIRATORY, 1 dose, 04/02/15 at 1045 , Routine 04/02/2015 10:33 AM COTTON FARMWORKER 4 mg Left Upp er Outer Quadrant dexamethasone (DECADRON) injection 4 mg Given 4 mg, IM, ONE TIME ONLY, 1 dose, 04/02/15 at 1045, Routine 04/02/2015 10:19 AM COTTON FARMWORKER 80 mg Left Upp er Outer Quadrant methylPREDNISolone Acetate (DEPO-MEDROL) Given injection 80 mg 80 mg, IM, ONE TIME ONLY, 1 dose, 04/02/15 at 1030, Routine documented in this encounter
--- OUTSIDE RECORDS SUMMARY | 2019-08-19 16:07 | XMS REPORT | Encounter Summary ---
Author Author [facility] Organization [facility] Address Unknown Phone Unavailable Care Team Providers Care Corporate Communications Associate Name Role Phone Carlotta Aguayo MD PCP Unavailable Reason for Visit * Auth/Cert Referred By Contact Referred To Contact Status Reason Specialty Diagnoses / Procedures [facility] Med Surg [address] [place] [address] Inpatient Diagnoses p neumonia Encounter Details Care Team Description Date Type Department Carlotta Aguayo MD NO ADDRESS ON FILE 04/08/2015 Hospital [facility] Encounter [address] [phone] Social History Date Tobacco Use [...] XR CHEST PA AND LATERAL 2 Stat 04/08/2015 [facility]oug [facility] VW 10:42 AM RN CARDIAC REHAB SOB (shortness of b reath) documented in this encounter Results * XR CHEST PA AND LATERAL (04/08/2015 10:42 AM RN CARDIAC REHAB) Specimen Impressions Performed At IMPRESSION: INTERFACE SYSTEM [...] ef fusion are identified. Procedure Note Interface, [facility] [place] Incoming Radiology Results - 04/08/2015 10:59 AM RN CARDIAC REHAB EXAM: Two view chest x-ray. CLINICAL INDICATION: [...]
--- OUTSIDE RECORDS SUMMARY | 2019-08-19 16:07 | XMS REPORT | Encounter Summary ---
Author Author [facility] Organization [facility] Address Unknown Phone Unavailable Care Team Providers Care Scoring Machine Operator Name Role Phone Carlotta Aguayo MD PCP Unavailable Reason for Visit * Reason Comments Medication Refill Encounter Details Care Team Description Date Type Department Carlotta Aguayo MD NO ADDRESS ON FILE 01/17/2015 Refill [facility] [address] [address] Social History Date Tobacco Use Types Packs/Day Years Used Never Smoker Smokeless Tobacco: Never Used Drinks/Week oz/Week Comments Alcohol Use No Sex Assigned at Date Recorded Not on file documented as of this encounter Plan of Treatment Not on filedocumented as of this encounter Visit Diagnoses Not on filedocumented in this encounter
--- OUTSIDE RECORDS SUMMARY | 2019-08-19 16:07 | XMS REPORT | Encounter Summary ---
Author Author [facility] Organization [facility] Address Unknown Phone Unavailable Care Team Providers Care Jewel Bearing Grinder Name Role Phone Carlotta Aguayo MD PCP Unavailable Reason for Visit * Reason Comments Follow Up 3 mos Results lab Encounter Details Care Team Description Date Type Department Carlotta Aguayo MD NO ADDRESS ON FILE Hyperlipidemia (Primary Dx); Prediabetes; Essential hypertension; Primary osteoarthritis involving multiple joints; Need for prophylactic vaccination and inoculation against influenza 12/21/2014 Office Visit [address] [address] Social History Date Tobacco Use Types Packs/Day Years Used Never Smoker Smokeless Tobacco: Never Used Drinks/Week oz/Week Comments Alcohol Use No Sex Assigned at Date Recorded Not on file documented as of this encounter Last Filed Vital Signs Reading Time Taken Comments Vital Sign 124/84 12/21/2014 8:55 AM CDT Blood Pressure - - Pulse - - Temperature - - Respiratory Rate - - Oxygen Saturation - - Inhaled Oxygen Concentration 69.9 kg (154 lb) 12/21/2014 8:55 AM CDT Weight 154.9 cm (5' 1") 12/21/2014 8:55 AM CDT Height 29.1 12/21/2014 8:55 AM CDT Body Mass Index documented in this encounter Progress Notes * Goyo Aguayo MD - 12/21/2014 7:22 PM CDT HISTORY OF PRESENT ILLNESS Era Viveros, a 74 y.o. female. HPI here in follow up hypertension and degenerative arthritis. Hyperlipidemia f ollow up REVIEW OF SYSTEMS Review of Systems Constitutional: Negative for fever, activity change, appetite change, fatigue an d unexpected weight change. HENT: Negative for congestion and neck stiffness. Respiratory: Negative for shortness of breath. Cardiovascular: Negative for chest pain. Gastrointestinal: Negative for abdominal pain. Genitourinary: Positive for flank pain. Negative for menstrual problem. Musculoskeletal: Positive for arthralgias. Neurological: Negative for weakness. PHYSICAL EXAM BP 124/84 mmHg | Ht 5' 1" (1.549 m) | Wt 154 lb (69.854 kg) | BMI 29.11 kg/m2 Physical Exam [nursing notereviewed. Constitutional: She is oriented to person, place, [...] time. Skin: Skin is warm and dry. Lab Results Component Value Date/Time NA 139 12/21/2014 07:38 AM K 3.8 12/21/2014 07:38 AM CL 105 12/21/2014 07:38 AM CO2 25 12/21/2014 07:38 AM CA 8.7 12/21/2014 07:38 AM BUN 26* 12/21/2014 07:38 AM CREAT 1.80* 12/21/2014 07:38 AM GLUCOSE 101* 12/21/2014 07:38 AM TOTALPROTEIN 7.2 12/21/2014 07:38 AM ALBUMIN 3.3* 12/21/2014 07:38 AM BILITOTAL 0.2 12/21/2014 07:38 AM ALKPHOS 83 12/21/2014 07:38 AM AST 24 12/21/2014 07:38 AM ALT 42 12/21/2014 07:38 AM ANIONGAP 9 12/21/2014 07:38 AM BCRATIO 13.5 03/06/2012 07:50 AM Lab Results Component Value Date/Time CHOLTOT 242* 12/21/2014 07:38 AM HDL 82* 12/21/2014 07:38 AM LDLCALC 140* 12/21/2014 07:38 AM LDLDIRECT 122 06/06/2011 08:02 AM TRIGLYCERIDE 98 12/21/2014 07:38 AM ASSESSMENT and PLAN: ICD-9-CM ICD-10-CM 1. Hyperlipidemia 272.4 E78.5 COMPREHENSIVE METABOLIC PANEL LIPID PANEL 2. Prediabetes 790.29 R73.09 HEMOGLOBIN A1C 3. Essential hypertension 401.9 I10 4. Primary osteoarthritis involving multiple joints 715.09 M15.0 HYDROcodone-belkis taminophen (NORCO) 5-325 mg tablet 5. Need for prophylactic vaccination and inoculation against influenza V04.81 Z2 3 INFLUENZA VACCINE HIGH DOSE 65+ YRS IM The current medical regimen is effective; continue present plan and medication s.Current outpatient prescriptions: HYDROcodone-acetaminophen (NORCO) 5-325 mg t ablet, Take 1 Tablet by mouth every 4 hours as needed for Pain, Moderate., Disp: 90 Tablet, Rfl: 0; furosemide (LASIX) 20 mg tablet, Take 1 Tab by mouth daily. , Disp: 30 Tab, Rfl: 5; colchicine-probenecid (COLBENEMID) 0.5-500 mg Tablet, T josephine 1 Tab by mouth daily., Disp: 60 Tab, Rfl: 2 metoprolol tartrate (LOPRESSOR) 25 mg tablet, Take 1 Tab by mouth 2 times daily. , Disp: 60 Tab, Rfl: 3; dicyclomine (BENTYL) 20 mg tablet, Take 1 Tab by mouth 4 times daily before meals and at bedtime., Disp: 120 Tab, Rfl: 3; NIFEdipine ( PROCARDIA XL) 30 mg Extended Release 24 hour tablet, Take 1 Tab by mouth 2 times daily., Disp: 60 Tab, Rfl: 5 ALPRAZolam (XANAX) 0.25 mg tablet, Take 1 Tab by mouth 3 times daily as needed f or Anxiety., Disp: 60 Tab, Rfl: 3; EVISTA 60 mg tablet, Take 1 Tab by mouth amirah ly., Disp: 30 Tab, Rfl: 11; 0mega-3 fatty acids-vitamin E (FISH OIL) 1,000 mg C apsule, Take 1 Capsule by mouth daily OMEGA RED. , Disp: , Rfl: ; lansoprazole (PREVACID) 15 mg Oral CpDR, Take 15 mg by mouth. Qod , Disp: , Rfl: aspirin (BABY ASPIRIN) 81 mg Oral Chew, Take 81 mg by mouth. Qod , Disp: , Rfl: ; [DISCONTINUED] HYDROcodone-acetaminophen (NORCO) 5-325 mg tablet, Take 1 Tab by mouth every 4 hours as needed for Pain, Moderate., Disp: 60 Tab, Rfl: 0 Schedule Mammogram and TAXONOMY TEACHER exam documented in this encounter Plan of Treatment Not on filedocumented as of this encounter Results * LIPID PANEL (04/28/2015 7:32 AM SENIOR LINUX UNIX ADMINISTRATOR) CHOLESTEROL 224 (H) <200 mg/dL [facility] [place] TRIGLYCERIDE 86 <150 mg/dL [facility] [place] HDL 78 (H) 40 - 59 mg/dL [facility] [place] LDL CALCULATED 129 (H) <100 mg/dL [facility] [place] NON-HDL 146 (H) <130 mg/dL [facility] CHOLESTEROL [facility] [place] Specimen Blood Narrative Performed At TOTAL CHOLESTEROL mg/dL [facility] Desirable <200 SERVICES - [facility] high 200-239 [facility] High >=240 TRIGLYCERIDES mg/dL Normal <150 Borderline high 150-199 High 200-499 Very high >=500 HDL CHOLESTEROL mg/dL Low <40 Normal 40-59 Desirable >=60 LDL CHOLESTEROL mg/dL Optimal <100 Low risk 100-129 Borderline high 130-159 High 160-189 Very high >=190 NON HDL CHOLESTEROL mg/dL Optimal <130 Near Optimal 130-159 Borderline High 160-189 High 190-219 Very high >=220 Based on AHA/NCEP Guidelines Performing Organization Address City/State/Zipcowi Ph one Number [facility] CLIA# [id number] [place] [address] - [place] [address] * HEMOGLOBIN A1C (04/28/2015 7:32 AM SENIOR LINUX UNIX ADMINISTRATOR) HEMOGLOBIN A1C 5.5 4.8 - 5.9 % [facility] [place] EST. AVG 111 mg/dL [facility] GLUCOSE, A1C [facility] [place] Specimen Blood Performing Organization Address City/State/Zipcode Ph one Number [facility] CLIA# [id number] KRISTA LAUREN [address] - [place] [address] [facility] * COMPREHENSIVE METABOLIC PANEL (04/28/2015 7:32 AM SENIOR LINUX UNIX ADMINISTRATOR) [facility] SODIUM 144 136 - 145 mmol/L [facility] - [place] POTASSIUM 3.6 3.5 - 5.1 mmol/L [facility] [place] CHLORIDE 108 (H) 98 - 107 mmol/L [facility] LABORATORY SERVICES - [facility] INDU CO2 23 22 - 29 mmol/L [facility] [place] CALCIUM 9.2 8.8 - 10.2 mg/dL [facility] [place] BUN 15 8 - 23 mg/dL [facility] [place] CREATININE 1.61 (H) 0.51 - 0.95 mg/dL [facility] Comment: LABORATORY The GFR result is not SERVICES - [facility] clinically significant on [facility] patients <18 or >70 years of age. GLUCOSE 105 (H) 70 - 100 mg/dL [facility] LABORATORY SERVICES - [facility] INDU TOTAL PROTEIN 7.0 6.6 - 8.7 g/dL [facility] [place] ALBUMIN 3.6 3.5 - 5.2 g/dL [facility] LABORATORY SERVICES - [facility] INDU BILIRUBIN TOTAL 0.2 <=1.2 mg/dL [facility] LABORATORY [facility] - [place] ALKALINE 66 35 - 104 U/L [facility] PHOSPHATASE LABORATORY SERVICES - [place] AST 30 10 - 35 U/L [facility] - [place] ALT 30 10 - 35 U/L [facility] [place] GFR 31 mL/min/1.73 sq meter [facility] Comment: LABORATORY eGFR has not been validated SERVICES - [facility] for use in the elderly (> 70 [facility] years of age), women, patients with serious [...] GFR result. GFR, 38 mL/min/1.73 sq meter [facility] - [place] ANION GAP 13 4 - 20 mmol/L [facility] - [place] Specimen Blood Performing Organization Address City/State/Zipcode Ph one Number [facility] CLIA# [id number] [place] [address] - [place] [address] [place] [address] documented in this encounter Visit Diagnoses Diagnosis Hyperlipidemia Other and unspecified hyperlipidemia Prediabetes Other abnormal glucose Essential hypertension Unspecified essential hypertension Primary osteoarthritis involving multip le joints Need for prophylactic vaccination and i noculation against influenza documented in this encounter
--- OUTSIDE RECORDS SUMMARY | 2019-08-19 16:07 | XMS REPORT | Encounter Summary ---
Author Author [facility] Organization [facility] Address Unknown Phone Unavailable Care Team Providers Care Advertising Associate Name Role Phone Carlotta Aguayo MD PCP Unavailable Encounter Details Care Team Description Date Type Department Carlotta Aguayo MD NO ADDRESS ON FILE Ftsc, Outpt Lab 09/16/2014 [facility] Outpatient Encounter Laboratory [address] [address] Social History Date Tobacco Use [...] Capsule mouth 2 times daily OMEGA RED. 09/16/2014 04/14/2015 colchicine-probenecid Take 1 Tab by 60 Tab 2 (COLBENEMID) 0.5-500 mg mouth daily. TabletIndications: Gout 08/31/2014 01/03/2015 metoprolol tartrate Take 1 Tab by 60 Tab 3 (LOPRESSOR) 25 mg tablet mouth 2 times daily. 08/16/2014 12/21/2014 HYDROcodone-acetaminophen Take 1 Tab by 60 Tab 0 (NORCO) 5-325 mg tablet mouth every 4 hours as needed for Pain, Moderate. 08/04/2014 04/14/2015 dicyclomine (BENTYL) 20 Take 1 [...] times Anxiety daily as needed for Anxiety. 03/04/2014 09/21/2014 furosemide (LASIX) 20 mg Take 1 Tab by 30 Tab 5 tablet mouth daily. 01/05/2014 01/03/2015 EVISTA 60 mg tablet Take [...] Procedure Name Priority Date/Time Associated Diag nosis COMPREHENSIVE METABOLIC Stat 09/16/2014 Hypert ension PANEL 8:35 AM CDT documented in this encounter Results * COMPREHENSIVE METABOLIC PANEL (09/16/2014 8:35 AM CDT) SODIUM 143 134 - 145 mmol/L [facility] [place] POTASSIUM 3.7 3.5 - 5.1 mmol/L [facility] [place] CHLORIDE 106 98 - 107 mmol/L [facility] [place] CO2 21 (L) 22 - 31 mmol/L [facility] [place] CALCIUM 8.8 8.5 - 10.1 mg/dL [facility] [place] BUN 26 (H) 7 - 20 mg/dL [facility] [place] CREATININE 1.68 (H) 0.51 - 0.95 mg/dL [facility] Comment: LABORATORY The GFR result is not SERVICES - [facility] clinically significant on [place] patients <18 or >70 years of age. GLUCOSE 96 70 - 100 mg/dL [facility] [place] TOTAL PROTEIN 7.3 6.4 - 8.2 g/dL [facility] [place] ALBUMIN 3.6 3.4 - 5.0 g/dL [facility] [place] BILIRUBIN TOTAL 0.5 <=1.1 mg/dL [facility] [place] ALKALINE 98 46 - 116 U/L [facility] PHOSPHATASE LABORATORY SERVICES - [place] AST 26 10 - 40 U/L [facility] - [place] ALT 48 14 - 63 U/L [facility] - [place] GFR 30 mL/min/1.73 sq meter [facility] Comment: LABORATORY eGFR has not been validated SERVICES - [facility] for use in the elderly [...] GFR result. GFR, 36 mL/min/1.73 sq meter [facility] - [place] ANION GAP 16 4 - 20 mmol/L [facility] - [place] Specimen Blood Performing Organization Address City/State/Zipcode Ph one Number [facility] CLIA# [id number] [place] [address] - [place] [address] [facility] documented in this encounter Visit Diagnoses Diagnosis Hypertension Unspecified essential hypertension documented in this encounter
--- OUTSIDE RECORDS SUMMARY | 2019-08-19 16:08 | XMS REPORT | Encounter Summary ---
Author Author [facility] Organization [facility] Address Unknown Phone Unavailable Care Team Providers Care Non Garment Sewing Machine Operator Name Role Phone Carlotta Aguayo MD PCP Unavailable Reason for Visit * Reason Comments Medication Refill Encounter Details Care Team Description Date Type Department Carlotta Aguayo MD NO ADDRESS ON FILE 08/31/[address] [facility] [address] [address] Social History Date Tobacco Use Types Packs/Day Years Used Never Smoker Smokeless Tobacco: Never Used Drinks/Week oz/Week Comments Alcohol Use No Sex Assigned at Date Recorded Not on file documented as of this encounter Plan of Treatment Not on filedocumented as of this encounter Visit Diagnoses Not on filedocumented in this encounter
--- OUTSIDE RECORDS SUMMARY | 2019-08-19 16:08 | XMS REPORT | Encounter Summary ---
Author Author [facility] Organization [facility] Address Unknown Phone Unavailable Care Team Providers Care Fios Line Installer Name Role Phone Cralotta Aguayo MD PCP Unavailable Encounter Details Care Team Description Date Type Department Carlotta Aguayo MD NO ADDRESS ON FILE Ftsc, Outpt Lab 03/17/2014 [facility] Outpatient Encounter Laboratory [address] [address] Social History Date Tobacco Use [...] Capsule mouth 2 times daily OMEGA RED. 03/17/2014 05/12/2015 ALPRAZolam (XANAX) 0.25 Take 1 Tab by 60 Tab 3 mg tabletIndications: mouth 3 times Anxiety daily as needed for Anxiety. 03/04/2014 09/21/2014 furosemide (LASIX) 20 mg Take 1 Tab by 30 Tab 5 tablet mouth daily. 02/16/2014 08/16/2014 HYDROcodone-acetaminophen Take 1 Tab by 60 Tab 0 (NORCO) 5-325 mg mouth every 4 tabletIndications: Back hours as pain needed for Pain, Moderate. 02/15/2014 08/31/2014 metoprolol tartrate Take 1 Tab by 60 Tab 5 (LOPRESSOR) 25 mg tablet mouth 2 times daily. 01/18/2014 07/19/2014 NIFEdipine (PROCARDIA XL) Take 1 Tab by 60 Tab 5 30 mg Extended Release 24 mouth 2 times hour tablet daily. 01/05/2014 01/03/2015 EVISTA 60 mg tablet Take 1 Tab by 30 Tab 11 mouth daily. 11/17/2013 07/15/2014 colchicine-probenecid Take 1 Tab by 60 Tab 3 (COLBENEMID) 0.5-500 mg mouth daily. Tablet 07/13/2013 08/03/2014 dicyclomine (BENTYL) 20 Take 1 Tab by 120 Tab 5 mg tablet mouth 4 times daily [...] Date/Time Associated Diag nosis COMPREHENSIVE METABOLIC Stat 03/17/2014 Hypert ension PANEL 8:36 AM VACUUM CLEANER MECHANIC Hyperlipidemia documented in this encounter Results * COMPREHENSIVE METABOLIC PANEL (03/17/2014 8:36 AM VACUUM CLEANER MECHANIC) SODIUM 139 134 - 145 mmol/L [facility] [place] POTASSIUM 3.5 3.5 - 5.1 mmol/L [facility] [place] CHLORIDE 105 98 - 107 mmol/L [facility] [place] CO2 25 22 - 31 mmol/L [facility] [place] CALCIUM 9.1 8.5 - 10.1 mg/dL [facility] [place] BUN 20 7 - 20 mg/dL [facility] - [facility] INDU CREATININE 1.53 (H) 0.51 - 0.95 mg/dL [facility] Comment: LABORATORY The GFR result is not SERVICES - [facility] clinically significant on [place] patients <18 or >70 years of age. GLUCOSE 91 70 - 100 mg/dL [facility] [place] TOTAL PROTEIN 7.2 6.4 - 8.2 g/dL [facility] [place] ALBUMIN 3.2 (L) 3.4 - 5.0 g/dL [facility] [place] BILIRUBIN TOTAL 0.3 <=1.1 mg/dL [facility] [place] ALKALINE 98 40 - 136 U/L [facility] PHOSPHATASE LABORATORY SERVICES - [place] AST 17 10 - 40 U/L [facility] - [place] ALT 44 25 - 70 U/L [facility] - [place] ANION GAP 9 4 - 20 mmol/L [facility] - [place] Specimen Blood Performing Organization Address City/State/Zipcode Ph one Number [facility] SERVICES CLIA# [id number] [place], [place] [address] - [address] LABORATORY SERVICES CLIA# [id number] [place] [address] - [address] documented in this encounter Visit Diagnoses Diagnosis Hypertension Unspecified essential hypertension Hyperlipidemia Other and unspecified hyperlipidemia documented in this encounter
--- OUTSIDE RECORDS SUMMARY | 2019-08-19 16:08 | XMS REPORT | Encounter Summary ---
Author Author [facility] Organization [facility] Address Unknown Phone Unavailable Care Team Providers Care Digital Media Sales Consultant Name Role Phone Carlotta Aguayo MD PCP Unavailable Encounter Details Care Team Description Date Type Department Carlotta Aguayo MD NO ADDRESS ON FILE Ftsc, Outpt Lab 12/10/2013 [facility] Outpatient Encounter Laboratory [address] [address] Social History Date Tobacco [...] Capsule mouth 2 times daily OMEGA RED. 12/10/2013 01/12/2014 Phentermine 15 mg Take 1 Cap by 30 Cap 0 CapsuleIndications: mouth daily. Overweight 11/17/2013 07/15/2014 colchicine-probenecid Take 1 Tab by 60 Tab 3 (COLBENEMID) 0.5-500 mg mouth daily. Tablet 09/10/2013 02/15/2014 HYDROcodone-acetaminophen Take 1 Tab by 60 Tab 3 (NORCO) 5-325 mg mouth every 4 tabletIndications: Back hours as pain needed for Pain, Moderate. 09/02/2013 01/05/2014 EVISTA 60 mg tablet Take 1 Tab by 30 Tab 3 mouth daily. 08/17/2013 02/15/2014 metoprolol tartrate Take 1 Tab by 60 Tab 5 (LOPRESSOR) 25 mg tablet mouth 2 times daily. 07/27/2013 01/18/2014 NIFEdipine SR 24 hour Take 1 Tab by 60 Tab 5 (PROCARDIA-XL) 30 mg mouth 2 times tablet daily. 07/13/2013 08/03/2014 dicyclomine (BENTYL) 20 Take 1 Tab by 120 Tab 5 mg tablet mouth 4 times daily before meals and at bedtime. 06/09/2013 03/04/2014 furosemide (LASIX) 20 mg Take 1 Tab by 30 Tab 5 tabletIndications: Edema mouth daily. 08/08/2017 lansoprazole (PREVACID) Take 15 [...] Priority Date/Time Associated Diag nosis LIPID PANEL Routine 12/10/2013 Hyperlipidemia 8:30 AM CDT COMPREHENSIVE METABOLIC Routine 12/10/2013 Hyperl ipidemia PANEL 8:30 AM CDT documented in this encounter Results * LIPID PANEL (12/10/2013 8:30 AM CDT) CHOLESTEROL 253 mg/dL [facility] [place] TRIGLYCERIDE 93 mg/dL [facility] [place] HDL 86 mg/dL [facility] [place] LDL CALCULATED 148 (H) <=130 mg/dL [facility] [place] Specimen Blood Narrative Performed At TOTAL CHOLESTEROL mg/dL [facility] Desirable <200 SERVICES - [facility] Borderline high 200-239 [facility] High >=240 TRIGLYCERIDES mg/dL Normal <150 Borderline high 150-199 High 200-499 Very high >=500 HDL CHOLESTEROL mg/dL Low <40 Normal 40-60 Desirable >60 LDL CHOLESTEROL mg/dL Optimal <100 Low risk 100-129 Borderline high 130-159 High 160-189 Very high >=190 Based on AHA/NCEP Guidelines Performing Organization Address City/State/Zipcode Ph one Number [facility] CLIA# [id number] [place] [address] - [place] [address] [place] [address] LABORATORY SERVICES CLIA# [id number] [place] [address] - [facility] INDU [address] [place] [address] * COMPREHENSIVE METABOLIC PANEL (12/10/2013 8:30 AM CDT) SODIUM 142 134 - 145 mmol/L [facility] - [place] POTASSIUM 3.7 3.5 - 5.1 mmol/L [facility] SERVICES - [facility] INDU CHLORIDE 107 98 - 107 mmol/L [facility] - [place] CO2 23 22 - 31 mmol/L [facility] SERVICES - [facility] INDU CALCIUM 9.1 8.5 - 10.1 mg/dL [facility] LABORATORY SERVICES - [facility] INDU BUN 18 7 - 20 mg/dL [facility] SERVICES - [facility] INDU CREATININE 1.67 (H) 0.51 - 0.95 mg/dL [facility] SERVICES - [facility] INDU GLUCOSE 98 70 - 100 mg/dL [facility] SERVICES - [facility] INDU TOTAL PROTEIN 7.7 6.4 - 8.2 g/dL [facility] - [place] ALBUMIN 3.5 3.4 - 5.0 g/dL [facility] SERVICES - [facility] INDU BILIRUBIN TOTAL 0.3 <=1.1 mg/dL [facility] SERVICES - [facility] INDU ALKALINE 97 40 - 136 U/L [facility] - [place] AST 28 10 - 40 U/L [facility] LABORATORY SERVICES - [facility] INDU ALT 49 25 - 70 U/L [facility] - [facility] INDU GFR 30Comment: The GFR result is mL/min/1.[address] [facility] not clinically significant on LABORATORY patients <18 or >70 years of SERVICES - [facility] age. INDU GFR, 36Comment: The GFR result is mL/min/1.[address] [facility] [place] not clinically significant on LABORAT [place] patients <18 or >70 years of SERVICES - [facility] age. INDU ANION GAP 12 4 - 20 [facility] SERVICES - [place] Specimen Blood Performing Organization Address City/State/Zipcode Ph one Number [facility] CLIA# [id number] [place] [address] - [facility] INDU [address] [place] [address] LABORATORY SERVICES CLIA# [id number] [place] [address] - [address] documented in this encounter Visit Diagnoses Diagnosis Hyperlipidemia Other and unspecified hyperlipidemia documented in this encounter
--- OUTSIDE RECORDS SUMMARY | 2019-08-19 16:08 | XMS REPORT | Encounter Summary ---
Author Author [facility] Organization [facility] Address Unknown Phone Unavailable Care Team Providers Care Map Compiler Name Role Phone Carlotta Aguayo MD PCP Unavailable Reason for Visit * Reason Onset Date Comments Medication Refill 08/16/2014 Encounter Details Care Team Description Date Type Department Carlotta Aguayo MD NO ADDRESS ON FILE 08/16/[address] [address] Social History Date Tobacco Use Types Packs/Day Years Used Never Smoker Smokeless Tobacco: Never Used Drinks/Week oz/Week Comments Alcohol Use No Sex Assigned at Date Recorded Not on file documented as of this encounter Plan of Treatment Not on filedocumented as of this encounter Visit Diagnoses Not on filedocumented in this encounter
--- OUTSIDE RECORDS SUMMARY | 2019-08-19 16:08 | XMS REPORT | Encounter Summary ---
Author Author [facility] Organization [facility] Address Unknown Phone Unavailable Care Team Providers Care Resin Shaver Name Role Phone Carlotta Aguayo MD PCP Unavailable Reason for Visit * Reason Comments Medication Refill Encounter Details Care Team Description Date Type Department Carlotta Aguayo MD NO ADDRESS ON FILE 07/19/2014 Refill [facility] [address] [phone] Social History Date Tobacco Use Types Packs/Day Years Used Never Smoker Smokeless Tobacco: Never Used Drinks/Week oz/Week Comments Alcohol Use No Sex Assigned at Date Recorded Not on file documented as of this encounter Plan of Treatment Not on filedocumented as of this encounter Visit Diagnoses Not on filedocumented in this encounter
--- OUTSIDE RECORDS SUMMARY | 2019-08-19 16:08 | XMS REPORT | Encounter Summary ---
Author Author [facility] Organization [facility] Address Unknown Phone Unavailable Care Team Providers Care Extension Educator Name Role Phone Carlotta Aguayo MD PCP Unavailable Reason for Visit * Reason Comments Follow Up 3 mos Results lab Encounter Details Care Team Description Date Type Department Carlotta Aguayo MD NO ADDRESS ON FILE Overweight (Primary Dx); Anxiety; Hyperlipidemia 03/17/2014 Office Visit [address] [phone] Social History Date Tobacco Use Types Packs/Day Years Used Never Smoker Smokeless Tobacco: Never Used Drinks/Week oz/Week Comments Alcohol Use No Sex Assigned at Date Recorded Not on file documented as of this encounter Last Filed Vital Signs Reading Time Taken Comments Vital Sign 122/84 03/17/2014 10:11 AM FINANCIAL OPERATIONS CONSULTANT Blood Pressure - - Pulse - - Temperature - - Respiratory Rate - - Oxygen Saturation - - Inhaled Oxygen Concentration 65.3 kg (144 lb) 03/17/2014 10:11 AM FINANCIAL OPERATIONS CONSULTANT Weight 154.9 cm (5' 1") 03/17/2014 10:11 AM FINANCIAL OPERATIONS CONSULTANT Height 27.21 03/17/2014 10:11 AM FINANCIAL OPERATIONS CONSULTANT Body Mass Index documented in this encounter Progress Notes * Goyo Aguayo MD - 03/17/2014 10:24 AM FINANCIAL OPERATIONS CONSULTANT HISTORY OF PRESENT ILLNESS Era Viveros, a 73 y.o. female. HPIhere with LDD. follow up hypertension and lipid issues. Overweight concerns. anxiety REVIEW OF SYSTEMS Review of Systems Constitutional: Negative for fever, activity change, appetite change, fatigue an d unexpected weight change. HENT: Negative for congestion and neck stiffness. Respiratory: Negative for shortness of breath. Cardiovascular: Negative for chest pain. Gastrointestinal: Negative for abdominal pain. Genitourinary: Negative for menstrual problem. Musculoskeletal: Positive for back pain and arthralgias. Neurological: Negative for weakness. anxiety PHYSICAL EXAM BP 122/84 | Ht 5' 1" (1.549 m) | Wt 144 lb (65.318 kg) | BMI 27.22 kg/m2 Physical Exam Nursing note and vitals reviewed. Constitutional: She is oriented to person, place, [...] range of motion. She exhibits tenderness (low back). Neurological: She is alert and oriented to person, place, and time. Radicular tenderness LLE Skin: Skin is warm and dry. ASSESSMENT and PLAN: ICD-9-CM ICD-10-CM 1. Overweight 278.02 E66.3 Phentermine 15 mg Capsule 2. Anxiety 300.00 F41.9 ALPRAZolam (XANAX) 0.25 mg tablet 3. Hyperlipidemia 272.4 E78.5 COMPREHENSIVE METABOLIC PANEL LIPID PANEL Current outpatient prescriptions:Phentermine 15 mg Capsule, Take 1 Cap by mouth daily., Disp: 30 Cap, Rfl: 0; ALPRAZolam (XANAX) 0.25 mg tablet, Take 1 Tab by mouth 3 times daily as needed for Anxiety., Disp: 60 Tab, Rfl: 3; furosemide ( LASIX) 20 mg tablet, Take 1 Tab by mouth daily., Disp: 30 Tab, Rfl: 5; HYDROcod one-acetaminophen (NORCO) 5-325 mg tablet, Take 1 Tab by mouth every 4 hours as needed for Pain, Moderate., Disp: 60 Tab, Rfl: 0 metoprolol tartrate (LOPRESSOR) 25 mg tablet, Take 1 Tab by mouth 2 times daily. , Disp: 60 Tab, Rfl: 5; NIFEdipine (PROCARDIA XL) 30 mg Extended Release 24 gretchen r tablet, Take 1 Tab by mouth 2 times daily., Disp: 60 Tab, Rfl: 5; EVISTA 60 m g tablet, Take 1 Tab by mouth daily., Disp: 30 Tab, Rfl: 11; 0mega-3 fatty acid s-vitamin E (FISH OIL) 1,000 mg Capsule, Take 2 Caps by mouth 2 times daily., Di sp: , Rfl: colchicine-probenecid (COLBENEMID) 0.5-500 mg Tablet, Take 1 Tab by mouth daily. , Disp: 60 Tab, Rfl: 3; dicyclomine (BENTYL) 20 mg tablet, Take 1 Tab by mouth 4 times daily before meals and at bedtime., Disp: 120 Tab, Rfl: 5; lansoprazole (PREVACID) 15 mg Oral CpDR, Take 15 mg by mouth. Qod , Disp: , Rfl: ; aspirin (BABY ASPIRIN) 81 mg Oral Chew, Take 81 mg by mouth. Qod , Disp: , Rfl: [DISCONTINUED] Phentermine 15 mg Capsule, Take 1 Cap by mouth daily., Disp: 30 C ap, Rfl: 0 NCIAL OPERATIONS CONSULTANT documented in this encounter Plan of Treatment Not on filedocumented as of this encounter Results * LIPID PANEL (06/16/2014 8:12 AM CDT) CHOLESTEROL 243 mg/dL [facility] TRIGLYCERIDE 108 mg/dL [facility] HDL 101 mg/dL [facility] LDL CALCULATED 120 <=130 mg/dL [facility] NON-HDL 142 mg/dL [facility] Specimen Blood Narrative Performed At TOTAL CHOLESTEROL mg/dL [facility] Desirable <200 [facility] Borderline high 200-239 [place]FK[place] High >=240 TRIGLYCERIDES mg/dL Normal <150 Borderline high 150-199 High 200-499 Very high >=500 HDL CHOLESTEROL mg/dL Low <40 Normal 40-60 Desirable >60 LDL CHOLESTEROL mg/dL Optimal <100 Low risk 100-129 Borderline high 130-159 High 160-189 Very high >=190 NON HDL CHOLESTEROL mg/dL Desirable <130 Borderline high 130-159 High 160-189 Very high >=190 Based on AHA/NCEP Guidelines Performing Organization Address City/State/Zipcode Ph one Number [facility] CLIA# [id number] KRISTA LAUREN [address] [place] [address] * COMPREHENSIVE METABOLIC PANEL (06/16/2014 8:12 AM CDT) [facility] SODIUM 138 134 - 145 mmol/L [facility] [place] POTASSIUM 3.6 3.5 - 5.1 mmol/L [facility] CHLORIDE 102 98 - 107 mmol/L [facility] [place] CO2 23 22 - 31 mmol/L [facility] [place] CALCIUM 9.1 8.5 - 10.1 mg/dL [facility] [place] BUN 22 (H) 7 - 20 mg/dL [facility] [place] CREATININE 1.73 (H) 0.51 - 0.95 mg/dL [facility] Comment: LABORATORY The GFR result is not [facility] - [facility] clinically significant on INDU patients <18 or >70 years of age. GLUCOSE 98 70 - 100 mg/dL [facility] [place] TOTAL PROTEIN 7.5 6.4 - 8.2 g/dL [facility] [place] ALBUMIN 3.3 (L) 3.4 - 5.0 g/dL [facility] [place] BILIRUBIN TOTAL 0.3 <=1.1 mg/dL [facility] [place] ALKALINE 136 40 - 136 U/L [facility] [place] AST 22 10 - 40 U/L [facility] [place] ALT 36 14 - 63 U/L [facility] [place] GFR 29 mL/min/1.73 sq meter [facility] Comment: LABORATORY eGFR has not been validated [facility] - [facility] for use in the [...] GFR result. GFR, 35 mL/min/1.73 sq meter [facility] [place] ANION GAP 13 4 - 20 mmol/L [facility] [place] Specimen Blood Performing Organization Address City/State/[facility] Ph one Number [facility] CLIA# [id number] [place] [address] [place] [address] documented in this encounter Visit Diagnoses Diagnosis Overweight Anxiety Anxiety state, unspecified Hyperlipidemia Other and unspecified hyperlipidemia documented in this encounter
--- OUTSIDE RECORDS SUMMARY | 2019-08-19 16:08 | XMS REPORT | Encounter Summary ---
Author Author [facility] Organization [facility] Address Unknown Phone Unavailable Care Team Providers Care Solid Die Cutter Name Role Phone Carlotta Aguayo MD PCP Unavailable Reason for Visit * Reason Comments Follow Up 1 mo. wt. Encounter Details Care Team Description Date Type Department Carlotta Aguayo MD NO ADDRESS ON FILE Hypertension (Primary Dx); Overweight 01/12/2014 Office Visit [facility] Prim[facility] [address] [phone] Social History Date Tobacco Use Types Packs/Day Years Used Never Smoker Smokeless Tobacco: Never Used Drinks/Week oz/Week Comments Alcohol Use No Sex Assigned at Date Recorded Not on file documented as of this encounter Last Filed Vital Signs Reading Time Taken Comments Vital Sign 118/62 01/12/2014 9:01 AM CDT Blood Pressure - - Pulse - - Temperature - - Respiratory Rate - - Oxygen Saturation - - Inhaled Oxygen Concentration 68.5 kg (151 lb) 01/12/2014 9:01 AM CDT Weight 156.2 cm (5' 1.5") 01/12/2014 9:01 AM CDT Height 28.07 01/12/2014 9:01 AM CDT Body Mass Index documented in this encounter Progress Notes * Goyo Aguayo MD - 01/22/2014 7:06 AM CDT HISTORY OF PRESENT ILLNESS Era Viveros, a 73 y.o. female. HPIhere with follow up hypertension. Working at weight reduction hard. Feeling w ell. REVIEW OF SYSTEMS Review of Systems Constitutional: Negative for fever, activity change, appetite change, fatigue an d unexpected weight change. HENT: Negative for congestion. Respiratory: Negative for shortness of breath. Cardiovascular: Negative for chest pain. Gastrointestinal: Negative for abdominal pain. Genitourinary: Negative for menstrual problem. Musculoskeletal: Negative for arthralgias and neck stiffness. Neurological: Negative for weakness. PHYSICAL EXAM BP 118/62 | Ht 5' 1.5" (1.562 m) | Wt 151 lb (68.493 kg) | BMI 28.07 kg/m2 Physical Exam Nursing note and vitals [...] time. Skin: Skin is warm and dry. ASSESSMENT and PLAN: ICD-9-CM ICD-10-CM 1. Hypertension 401.9 I10 2. Overweight 278.02 E66.3 Phentermine 15 mg Capsule Current outpatient prescriptions:Phentermine 15 mg Capsule, Take 1 Cap by mouth daily., Disp: 30 Cap, Rfl: 0; EVISTA 60 mg tablet, Take 1 Tab by mouth daily., Disp: 30 Tab, Rfl: 11; 0mega-3 fatty acids-vitamin E (FISH OIL) 1,000 mg Capsu le, Take 2 Caps by mouth 2 times daily., Disp: , Rfl: ; colchicine-probenecid ( COLBENEMID) 0.5-500 mg Tablet, Take 1 Tab by mouth daily., Disp: 60 Tab, Rfl: 3 HYDROcodone-acetaminophen (NORCO) 5-325 mg tablet, Take 1 Tab by mouth every 4 h ours as needed for Pain, Moderate., Disp: 60 Tab, Rfl: 3; metoprolol tartrate ( LOPRESSOR) 25 mg tablet, Take 1 Tab by mouth 2 times daily., Disp: 60 Tab, Rfl: 5; dicyclomine (BENTYL) 20 mg tablet, Take 1 Tab by mouth 4 times daily before meals and at bedtime., Disp: 120 Tab, Rfl: 5; furosemide (LASIX) 20 mg tablet, Take 1 Tab by mouth daily., Disp: 30 Tab, Rfl: 5 lansoprazole (PREVACID) 15 mg Oral CpDR, Take 15 mg by mouth. Qod , Disp: , Rfl: ; aspirin (BABY ASPIRIN) 81 mg Oral Chew, Take 81 mg by mouth. Qod , Disp: , R fl: ; NIFEdipine (PROCARDIA XL) 30 mg Extended Release 24 hour tablet, Take 1 T ab by mouth 2 times daily., Disp: 60 Tab, Rfl: 5 The current medical regimen is effective; continue present plan and medications . documented in this encounter Plan of Treatment Not on filedocumented as of this encounter Visit Diagnoses Diagnosis Hypertension Unspecified essential hypertension Overweight documented in this encounter
--- OUTSIDE RECORDS SUMMARY | 2019-08-19 16:08 | XMS REPORT | Encounter Summary ---
Author Author [facility] Organization [facility] Address Unknown Phone Unavailable Care Team Providers Care Director Aeronautics Commission Name Role Phone Carlotta Aguayo MD PCP Unavailable Reason for Visit * Reason Comments Medication Refill Encounter Details Care Team Description Date Type Department Carlotta Aguayo MD NO ADDRESS ON FILE 11/17/2013 Refill [facility] [address] [phone] Social History Date Tobacco Use Types Packs/Day Years Used Never Smoker Smokeless Tobacco: Never Used Drinks/Week oz/Week Comments Alcohol Use No Sex Assigned at Date Recorded Not on file documented as of this encounter Plan of Treatment Not on filedocumented as of this encounter Visit Diagnoses Not on filedocumented in this encounter
--- OUTSIDE RECORDS SUMMARY | 2019-08-19 16:08 | XMS REPORT | Encounter Summary ---
Author Author [facility] Organization [facility] Address Unknown Phone Unavailable Care Team Providers Care Digital Designer Name Role Phone Carlotta Aguayo MD PCP Unavailable Reason for Visit * Reason Comments Medication Refill Encounter Details Care Team Description Date Type Department Carlotta Aguayo MD NO ADDRESS ON FILE 03/04/2014 Refill [facility] [address] [phone] Social History Date Tobacco Use Types Packs/Day Years Used Never Smoker Smokeless Tobacco: Never Used Drinks/Week oz/Week Comments Alcohol Use No Sex Assigned at Date Recorded Not on file documented as of this encounter Plan of Treatment Not on filedocumented as of this encounter Visit Diagnoses Not on filedocumented in this encounter
--- OUTSIDE RECORDS SUMMARY | 2019-08-19 16:08 | XMS REPORT | Encounter Summary ---
Author Author [facility] Organization [facility] Address Unknown Phone Unavailable Care Team Providers Care Beater Boss Name Role Phone Carlotta Aguayo MD PCP Unavailable Reason for Visit * Reason Comments Medication Refill Encounter Details Care Team Description Date Type Department Carlotta Aguayo MD NO ADDRESS ON FILE 08/03/2014 Refill [facility] [address] [phone] Social History Date Tobacco Use Types Packs/Day Years Used Never Smoker Smokeless Tobacco: Never Used Drinks/Week oz/Week Comments Alcohol Use No Sex Assigned at Date Recorded Not on file documented as of this encounter Plan of Treatment Not on filedocumented as of this encounter Visit Diagnoses Not on filedocumented in this encounter
--- OUTSIDE RECORDS SUMMARY | 2019-08-19 16:08 | XMS REPORT | Encounter Summary ---
Author Author [facility] Organization [facility] Address Unknown Phone Unavailable Care Team Providers Care Loss Prevention Operations Manager Name Role Phone Carlotta Aguayo MD PCP Unavailable Reason for Visit * Reason Comments Follow Up WT Encounter Details Care Team Description Date Type Department Carlotta Aguayo MD NO ADDRESS ON FILE Overweight (Primary Dx); Hypertension; DA (degenerative arthritis); Nevus sebaceous; Back pain 02/16/[address] [facility] [address] [phone] Social History Date Tobacco Use Types Packs/Day Years Used Never Smoker Smokeless Tobacco: Never Used Drinks/Week oz/Week Comments Alcohol Use No Sex Assigned at Date Recorded Not on file documented as of this encounter Last Filed Vital Signs Reading Time Taken Comments Vital Sign 133/80 02/16/2014 9:28 AM INVENTORY WORKER Blood Pressure - - Pulse - - Temperature - - Respiratory Rate - - Oxygen Saturation - - Inhaled Oxygen Concentration 65.8 kg (145 lb) 02/16/2014 9:28 AM INVENTORY WORKER Weight 154.9 cm (5' 1") 02/16/2014 9:28 AM INVENTORY WORKER Height 27.4 02/16/2014 9:28 AM INVENTORY WORKER Body Mass Index documented in this encounter Progress Notes * Goyo Aguayo MD - 02/16/2014 10:13 AM INVENTORY WORKER HISTORY OF PRESENT ILLNESS Era Viveros, a 73 y.o. female. HPIhere working hard at weight reduction with success, tolerating meds well. L f acial nevus. Known spinal stenosis, getting intermittent steroid injections from Dr Livingston in . REVIEW OF SYSTEMS Review of Systems Constitutional: Negative for fever, activity change, appetite change, fatigue an d unexpected weight change. HENT: Negative for congestion. Respiratory: Negative for shortness of breath. Cardiovascular: Negative for chest pain. Gastrointestinal: Negative for abdominal pain. Genitourinary: Negative for menstrual problem. Musculoskeletal: Positive for back pain. Negative for arthralgias and neck stiff ness. Skin: L face nevus Neurological: Negative for weakness. L leg neuralgia PHYSICAL EXAM BP 133/80 | Ht 5' 1" (1.549 m) | Wt 145 lb (65.772 kg) | BMI 27.41 kg/m2 Physical Exam Nursing note and vitals [...] time. Skin: Skin is warm and dry. 1 cm L facial nevus ASSESSMENT and PLAN: ICD-9-CM ICD-10-CM 1. Overweight 278.02 E66.3 Phentermine 15 mg Capsule 2. Hypertension 401.9 I10 3. 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 Back pain 724.5 M54.9 HYDROcodone-acetaminophen (NORCO) 5-325 mg tablet cryotherapy NTORY WORKER documented in this encounter Plan of Treatment Not on filedocumented as of this encounter Visit Diagnoses Diagnosis Overweight Hypertension Unspecified essential hypertension DA (degenerative arthritis) Osteoarthrosis, unspecified whether gen eralized or localized, unspecified site Nevus sebaceous Other specified dermatoses Back pain Backache, unspecified documented in this encounter
--- OUTSIDE RECORDS SUMMARY | 2019-08-19 16:08 | XMS REPORT | Encounter Summary ---
Author Author [facility] Organization [facility] Address Unknown Phone Unavailable Care Team Providers Care Thread Tool Grinder Set Up Operator Name Role Phone Carlotta gAuayo MD PCP Unavailable Reason for Visit * Reason Comments Medication Refill Encounter Details Care Team Description Date Type Department Carlotta Aguayo MD NO ADDRESS ON FILE 07/15/2014 Refill [facility] [address] [phone] Social History Date Tobacco Use Types Packs/Day Years Used Never Smoker Smokeless Tobacco: Never Used Drinks/Week oz/Week Comments Alcohol Use No Sex Assigned at Date Recorded Not on file documented as of this encounter Plan of Treatment Not on filedocumented as of this encounter Visit Diagnoses Not on filedocumented in this encounter
--- OUTSIDE RECORDS SUMMARY | 2019-08-19 16:08 | XMS REPORT | Encounter Summary ---
Author Author [facility] Organization [facility] Address Unknown Phone Unavailable Care Team Providers Care Tax Staff Accountant Name Role Phone Carlotta Aguayo MD PCP Unavailable Encounter Details Care Team Description Date Type Department Damien Ofelia Rodríguez, QUALITY ASSURANCE LEAD [address] [place] [address] Need for prophylactic vaccination and in oculation against influenza (Primary Dx) 12/31/2013 Immunization [facility] [place] [address] [place] [address] Social History Date Tobacco Use Types Packs/Day [...]
--- OUTSIDE RECORDS SUMMARY | 2019-08-19 16:08 | XMS REPORT | Encounter Summary ---
Author Author [facility] Organization [facility] Address Unknown Phone Unavailable Care Team Providers Care Big Machine Consultant Name Role Phone Carlotta Aguayo MD PCP Unavailable Reason for Visit * Reason Comments Medication Refill Encounter Details Care Team Description Date Type Department Carlotta Aguayo MD NO ADDRESS ON FILE Back pain (Primary Dx) 02/15/2014 Refill [facility] [address] [phone] Social History Date Tobacco Use Types Packs/Day Years Used Never Smoker Smokeless Tobacco: Never Used Drinks/Week oz/Week Comments Alcohol Use No Sex Assigned at Date Recorded Not on file documented as of this encounter Plan of Treatment Not on filedocumented as of this encounter Visit Diagnoses Diagnosis Back pain Backache, unspecified documented in this encounter
--- OUTSIDE RECORDS SUMMARY | 2019-08-19 16:08 | XMS REPORT | Encounter Summary ---
Author Author [facility] Organization [facility] Address Unknown Phone Unavailable Care Team Providers Care Film Or Tape Librarian Name Role Phone Carlotta Aguayo MD PCP Unavailable Reason for Visit * Reason Comments Follow Up 3 mos Results lab Information October [address] Preston [place], Via [facility] Leg Pain left Hip Pain left Encounter Details Care Team Description Date Type Department Carlotta Aguayo MD NO ADDRESS ON FILE Hypertension (Primary Dx); Hyperlipidemia; Lumbar disc disease; Overweight 12/10/2013 Office Visit [address] [address] Social History Date Tobacco Use Types Packs/Day Years Used Never Smoker Smokeless Tobacco: Never Used Drinks/Week oz/Week Comments Alcohol Use No Sex Assigned at Date Recorded Not on file documented as of this encounter Last Filed Vital Signs Reading Time Taken Comments Vital Sign 114/74 12/10/2013 10:00 AM CDT Blood Pressure - - Pulse - - Temperature - - Respiratory Rate - - Oxygen Saturation - - Inhaled Oxygen Concentration 71.2 kg (157 lb) 12/10/2013 10:00 AM CDT Weight 154.9 cm (5' 1") 12/10/2013 10:00 AM CDT Height 29.66 12/10/2013 10:00 AM CDT Body Mass Index documented in this encounter Progress Notes * Goyo Aguayo MD - 12/14/2013 3:48 PM CDT HISTORY OF PRESENT ILLNESS Erakrystian Mathis Viveros, a 73 y.o. female. HPIhere with LDD. Had initial good response from epidural injection x 1, now rec urring radicular LLE aching. follow up hypertension and lipid issues. Overweight concerns. REVIEW OF SYSTEMS Review of Systems Constitutional: Negative for fever, activity change, appetite change, fatigue an d unexpected weight change. HENT: Negative for congestion and neck stiffness. Respiratory: Negative for shortness of breath. Cardiovascular: Negative for chest pain. Gastrointestinal: Negative for abdominal pain. Genitourinary: Negative for menstrual problem. Musculoskeletal: Positive for back pain and arthralgias. Neurological: Negative for weakness. PHYSICAL EXAM BP 114/74 | Ht 5' 1" (1.549 m) | Wt 157 lb (71.215 kg) | BMI 29.68 kg/m2 Physical Exam Nursing note and vitals [...] PLAN: ICD-9-CM ICD-10-CM 1. Hypertension 401.9 I10 COMPREHENSIVE METABOLIC PANEL 2. Hyperlipidemia 272.4 E78.5 COMPREHENSIVE METABOLIC PANEL 3. Lumbar disc disease 722.93 M51.9 4. Overweight 278.02 E66.3 Phentermine 15 mg Capsule Current outpatient prescriptions:0mega-3 fatty acids-vitamin E (FISH OIL) 1,000 mg Capsule, Take 2 Caps by mouth 2 times daily., Disp: , Rfl: ; Phentermine 15 mg Capsule, Take 1 Cap by mouth daily., Disp: 30 Cap, Rfl: 0; colchicine-probe necid (COLBENEMID) 0.5-500 mg Tablet, Take 1 Tab by mouth daily., Disp: 60 Tab, Rfl: 3 HYDROcodone-acetaminophen (NORCO) 5-325 mg tablet, Take 1 Tab by mouth every 4 h ours as needed for Pain, Moderate., Disp: 60 Tab, Rfl: 3; EVISTA 60 mg tablet, Take 1 Tab by mouth daily., Disp: 30 Tab, Rfl: 3; metoprolol tartrate (LOPRESSO R) 25 mg tablet, Take 1 Tab by mouth 2 times daily., Disp: 60 Tab, Rfl: 5; NIFE dipine SR 24 hour (PROCARDIA-XL) 30 mg tablet, Take 1 Tab by mouth 2 times daily ., Disp: 60 Tab, Rfl: 5 dicyclomine (BENTYL) 20 mg tablet, Take 1 Tab by mouth 4 times daily before meal s and at bedtime., Disp: 120 Tab, Rfl: 5; furosemide (LASIX) 20 mg tablet, Take 1 Tab by mouth daily., Disp: 30 Tab, Rfl: 5; lansoprazole (PREVACID) 15 mg Oral CpDR, Take 15 mg by mouth. Qod , Disp: , Rfl: ; aspirin (BABY ASPIRIN) 81 mg Oral Chew, Take 81 mg by mouth. Qod , Disp: , Rfl: documented in this encounter Plan of Treatment Not on filedocumented as of this encounter Results * COMPREHENSIVE METABOLIC PANEL (03/17/2014 8:36 AM FLOORING SALES MANAGER) [facility] SODIUM 139 134 - 145 mmol/L [facility] LABORATORY SERVICES - [facility] INDU POTASSIUM 3.5 3.5 - 5.1 mmol/L [facility] - [facility] INDU CHLORIDE 105 98 - 107 mmol/L [facility] - [facility] INDU CO2 25 22 - 31 mmol/L [facility] LABORATORY SERVICES - [facility] INDU CALCIUM 9.1 8.5 - 10.1 mg/dL [facility] LABORATORY SERVICES - [facility] INDU BUN 20 7 - 20 mg/dL [facility] LABORATORY SERVICES - [facility] INDU CREATININE 1.53 (H) 0.51 - 0.95 mg/dL [facility] Comment: LABORATORY The GFR result is not SERVICES - [facility] clinically significant on [place] patients <18 or >70 years of age. GLUCOSE 91 70 - 100 mg/dL [facility] LABORATORY SERVICES - [facility] INDU TOTAL PROTEIN 7.2 6.4 - 8.2 g/dL [facility] LABORATORY SERVICES - [place] ALBUMIN 3.2 (L) 3.4 - 5.0 g/dL [facility] LABORATORY SERVICES - [place] BILIRUBIN TOTAL 0.3 <=1.1 mg/dL [facility] LABORATORY SERVICES - [place] ALKALINE 98 40 - 136 U/L [facility] PHOSPHATASE LABORATORY SERVICES - [place] AST 17 10 - 40 U/L [facility] LABORATORY SERVICES - [place] ALT 44 25 - 70 U/L [facility] LABORATORY SERVICES - [place] ANION GAP 9 4 - 20 mmol/L [facility] LABORATORY SERVICES - [place] Specimen Blood Performing Organization Address City/State[facility] Ph one Number [facility] LABORATORY SERVICES CLIA# [id number] KRISTA LAUREN [address] - [place] [address] [place] [address] LABORATORY SERVICES CLIA# [id number] [place] [address] - [place] [address] [place] [address] documented in this encounter Visit Diagnoses Diagnosis Hypertension Unspecified essential hypertension Hyperlipidemia Other and unspecified hyperlipidemia Lumbar disc disease Other and unspecified disc disorder of lumbar region Overweight documented in this encounter
--- OUTSIDE RECORDS SUMMARY | 2019-08-19 16:08 | XMS REPORT | Encounter Summary ---
Author Author [facility] Organization [facility] Address Unknown Phone Unavailable Care Team Providers Care Back Facer Name Role Phone Carlotta Aguayo MD PCP Unavailable Reason for Visit * Reason Comments Medication Refill Encounter Details Care Team Description Date Type Department Carlotta Aguayo MD NO ADDRESS ON FILE 01/18/2014 Refill [facility] [address] [address] Social History Date Tobacco Use Types Packs/Day Years Used Never Smoker Smokeless Tobacco: Never Used Drinks/Week oz/Week Comments Alcohol Use No Sex Assigned at Date Recorded Not on file documented as of this encounter Plan of Treatment Not on filedocumented as of this encounter Visit Diagnoses Not on filedocumented in this encounter
--- OUTSIDE RECORDS SUMMARY | 2019-08-19 16:08 | XMS REPORT | Encounter Summary ---
Author Author [facility] Organization [facility] Address Unknown Phone Unavailable Care Team Providers Care Tank Truck Loader Name Role Phone Carlotta Aguayo MD PCP Unavailable Encounter Details Care Team Description Date Type Department Carlotta Aguayo MD NO ADDRESS ON FILE 10/13/[address] [address] Social History Date Tobacco Use Types Packs/Day Years Used Never Smoker Smokeless Tobacco: Never Used Drinks/Week oz/Week Comments Alcohol Use No Sex Assigned at Date Recorded Not on file documented as of this encounter Plan of Treatment Not on filedocumented as of this encounter Visit Diagnoses Not on filedocumented in this encounter
--- OUTSIDE RECORDS SUMMARY | 2019-08-19 16:08 | XMS REPORT | Encounter Summary ---
Author Author [facility] Organization [facility] Address Unknown Phone Unavailable Care Team Providers Care Tactical Debriefer Name Role Phone Carlotta Aguayo MD PCP Unavailable Encounter Details Care Team Description Date Type Department Carlotta Aguayo MD NO ADDRESS ON FILE Ftsc, Outpt Lab 06/16/2014 [facility] Outpatient Encounter Laboratory [address] [address] Social History Date Tobacco Use [...] Date/Time Associated Diag nosis LIPID PANEL Stat 06/16/2014 Hyperlipidemia 8:12 AM CDT COMPREHENSIVE METABOLIC Stat 06/16/2014 Hyperl ipidemia PANEL 8:12 AM CDT documented in this encounter Results * LIPID PANEL (06/16/2014 8:12 AM CDT) CHOLESTEROL 243 mg/dL [facility] LAB[facility]ATORY [facility] TRIGLYCERIDE 108 mg/dL [facility] HDL 101 mg/dL [facility] LAB[facility]ATORY [facility] LDL CALCULATED 120 <=130 mg/dL [facility] LAB[facility]ATORY [facility] NON-HDL 142 mg/dL [facility] CHOLESTEROL LABORATORY SERVICES - [place] Specimen Blood Narrative Performed At TOTAL CHOLESTEROL mg/dL [facility] LABORATORY Desirable <200 SERVICES - [facility] Borderline high 200-239 INDU High >=240 [...] Based on AHA/NCEP Guidelines Performing Organization Address City/State/[facility] Ph one Number [facility] LABORATORY SERVICES CLIA# [id number] [place], KRISTA [address] - [place] [address] [facility] * COMPREHENSIVE METABOLIC PANEL (06/16/2014 8:12 AM CDT) [facility] SODIUM 138 134 - 145 mmol/L [facility]ATORY SERVICES - [facility] INDU POTASSIUM 3.6 3.5 - 5.1 mmol/L [facility] SERVICES - [place] CHLORIDE 102 98 - 107 mmol/L [facility]ORY SERVICES - [facility] INDU CO2 23 22 - 31 mmol/L [facility] - [place] CALCIUM 9.1 8.5 - 10.1 mg/dL [facility] INDU BUN 22 (H) 7 - 20 mg/dL [facility] LABORATORY SERVICES - [place] CREATININE 1.73 (H) 0.51 - 0.95 mg/dL [facility] Comment: LABORATORY The GFR result is not SERVICES - [facility] clinically significant on [place] patients <18 or >70 years of age. GLUCOSE 98 70 - 100 mg/dL [facility] - [facility] INDU TOTAL PROTEIN 7.5 6.4 - 8.2 g/dL [facility] LABORATORY SERVICES - [facility] INDU ALBUMIN 3.3 (L) 3.4 - 5.0 g/dL [facility] [place] BILIRUBIN TOTAL 0.3 <=1.1 mg/dL [facility] - [place] ALKALINE 136 40 - 136 U/L [facility] PHOSPHATASE LABORATORY SERVICES - [place] AST 22 10 - 40 U/L [facility] LABORATORY SERVICES - [place] ALT 36 14 - 63 U/L [facility] - [place] GFR 29 mL/min/1.73 sq meter [facility] Comment: LABORATORY eGFR has not been [...] GFR result. GFR, 35 mL/min/1.73 sq meter [facility] [place] LABORATORY SERVICES - [place] ANION GAP 13 4 - 20 mmol/L [facility] - [place] Specimen Blood Performing Organization Address City/State/Zipcode Ph one Number [facility] LABORATORY SERVICES CLIA# [id number] [place] [address] - [place] [address] [facility] documented in this encounter Visit Diagnoses Diagnosis Hyperlipidemia Other and unspecified hyperlipidemia documented in this encounter
--- OUTSIDE RECORDS SUMMARY | 2019-08-19 16:08 | XMS REPORT | Encounter Summary ---
Author Author [facility] Organization [facility] Address Unknown Phone Unavailable Care Team Providers Care Car Ferry Master Name Role Phone Carlotta Aguayo MD PCP Unavailable Reason for Visit * Reason Comments Follow Up 3 mos Results lab Medication Refill Encounter Details Care Team Description Date Type Department Carlotta Aguayo MD NO ADDRESS ON FILE Essential hypertension (Primary Dx); Primary osteoarthritis involving multiple joints; Prediabetes; Gout; Hyperlipidemia 09/16/2014 Office Visit [facility] [address] [address] Social History Date Tobacco Use Types Packs/Day Years Used Never Smoker Smokeless Tobacco: Never Used Drinks/Week oz/Week Comments Alcohol Use No Sex Assigned at Date Recorded Not on file documented as of this encounter Last Filed Vital Signs Reading Time Taken Comments Vital Sign 118/62 09/16/2014 9:49 AM CDT Blood Pressure - - Pulse - - Temperature - - Respiratory Rate - - Oxygen Saturation - - Inhaled Oxygen Concentration 68 kg (150 lb) 09/16/2014 9:49 AM CDT Weight 154.9 cm (5' 1") 09/16/2014 9:49 AM CDT Height 28.34 09/16/2014 9:49 AM CDT Body Mass Index documented in this encounter Progress Notes * Goyo Aguayo MD - 09/16/2014 8:27 PM CDT HISTORY OF PRESENT ILLNESS Era Viveros, a 73 y.o. female. HPI here in follow up hypertension and degenerative arthritis. Hyperlipidemia f ollow up. follow up gout. REVIEW OF SYSTEMS Review of Systems Constitutional: [...] Negative for weakness. PHYSICAL EXAM BP 118/62 mmHg | Ht 5' 1" (1.549 m) | Wt 150 lb (68.04 kg) | BMI 28.36 kg/m2 Physical Exam [nursing notereviewed. Constitutional: She [...] Lab Results Component Value Date/Time NA 143 09/16/2014 08:35 AM K 3.7 09/16/2014 08:35 AM CL 106 09/16/2014 08:35 AM CO2 21* 09/16/2014 08:35 AM CA 8.8 09/16/2014 08:35 AM BUN 26* 09/16/2014 08:35 AM CREAT 1.68* 09/16/2014 08:35 AM GLUCOSE 96 09/16/2014 08:35 AM TOTALPROTEIN 7.3 09/16/2014 08:35 AM ALBUMIN 3.6 09/16/2014 08:35 AM BILITOTAL 0.5 09/16/2014 08:35 AM ALKPHOS 98 09/16/2014 08:35 AM AST 26 09/16/2014 08:35 AM ALT 48 09/16/2014 08:35 AM ANIONGAP 16 09/16/2014 08:35 AM BCRATIO 13.5 03/06/2012 07:50 AM Lab Results Component Value Date/Time CHOLTOT 243 06/16/2014 08:12 AM HDL 101 06/16/2014 08:12 AM LDLCALC 120 06/16/2014 08:12 AM LDLDIRECT 122 06/06/2011 08:02 AM TRIGLYCERIDE 108 06/16/2014 08:12 AM ASSESSMENT and PLAN: ICD-9-CM ICD-10-CM 1. Essential hypertension 401.9 I10 COMPREHENSIVE METABOLIC PANEL 2. Primary osteoarthritis involving multiple joints 715.09 M15.0 3. Prediabetes 790.29 R73.09 4. Gout 274.9 M10.9 colchicine-probenecid (COLBENEMID) 0.5-500 mg Tablet 5. Hyperlipidemia 272.4 E78.5 LIPID PANEL The current medical regimen is effective; continue present plan and medication s.Current outpatient prescriptions: colchicine-probenecid (COLBENEMID) 0.5-500 m g Tablet, Take 1 Tab by mouth daily., Disp: 60 Tab, Rfl: 2; metoprolol tartrate (LOPRESSOR) 25 mg tablet, Take 1 Tab by mouth 2 times daily., Disp: 60 Tab, Rfl : 3; HYDROcodone-acetaminophen (NORCO) 5-325 mg tablet, Take 1 Tab by mouth inés ry 4 hours as needed for Pain, Moderate., Disp: 60 Tab, Rfl: 0 dicyclomine (BENTYL) 20 mg tablet, Take 1 Tab by mouth 4 times daily before meal s and at bedtime., Disp: 120 Tab, Rfl: 3; NIFEdipine (PROCARDIA XL) 30 mg Exten ded Release 24 hour tablet, Take 1 Tab by mouth 2 times daily., Disp: 60 Tab, Rf l: 5; ALPRAZolam (XANAX) 0.25 mg tablet, Take 1 Tab by mouth 3 times daily as n eeded for Anxiety., Disp: 60 Tab, Rfl: 3; furosemide (LASIX) 20 mg tablet, Take 1 Tab by mouth daily., Disp: 30 Tab, Rfl: 5 EVISTA 60 mg tablet, Take 1 Tab by mouth daily., Disp: 30 Tab, Rfl: 11; 0mega-3 fatty acids-vitamin E (FISH OIL) 1,000 mg Capsule, Take 2 Caps by mouth 2 times daily., Disp: , Rfl: ; lansoprazole (PREVACID) 15 mg Oral CpDR, Take 15 mg by mouth. Qod , Disp: , Rfl: ; aspirin (BABY ASPIRIN) 81 mg Oral Chew, Take 81 mg by mouth. Qod , Disp: , Rfl: [DISCONTINUED] colchicine-probenecid (COLBENEMID) 0.5-500 mg Tablet, Take 1 Tab by mouth daily., Disp: 60 Tab, Rfl: 2 documented in this encounter Plan of Treatment Not on filedocumented as of this encounter Results * LIPID PANEL (12/21/2014 7:38 AM CDT) CHOLESTEROL 242 (H) <200 mg/dL [facility] LABORATORY SERVICES - [place] TRIGLYCERIDE 98 <150 mg/dL [facility] SERVICES - [place] HDL 82 (H) 40 - 59 mg/dL [facility] - [place] LDL CALCULATED 140 (H) <100 mg/dL [facility] SERVICES - [place] NON-HDL 160 (H) <130 mg/dL [facility] CHOLESTEROL LABORATORY SERVICES - [place] Specimen Blood Narrative Performed At TOTAL CHOLESTEROL mg/dL [facility] LABORATORY Desirable <200 SERVICES - [facility] Borderline high 200-239 INDU High >=240 [...] Based on AHA/NCEP Guidelines Performing Organization Address City/State/Zipconj Ph one Number [facility] LABORATORY SERVICES CLIA# [id number] [place] [address] - [place] [address] * COMPREHENSIVE METABOLIC PANEL (12/21/2014 7:38 AM CDT) SODIUM 139 134 - 145 mmol/L [facility] LAB[facility] SERVICES - [place] POTASSIUM 3.8 3.5 - 5.1 mmol/L [facility] SERVICES - [place] CHLORIDE 105 98 - 107 mmol/L [facility] SERVICES - [place] CO2 25 22 - 31 mmol/L [facility] SERVICES - [place] CALCIUM 8.7 8.5 - 10.1 mg/dL [facility] LABORATORY SERVICES - [facility] INDU BUN 26 (H) 7 - 20 mg/dL [facility] LABORATORY SERVICES - [place] CREATININE 1.80 (H) 0.51 - 0.95 mg/dL [facility] Comment: LABORATORY The GFR result is not SERVICES - [facility] clinically significant on [place] patients <18 or >70 years of age. GLUCOSE 101 (H) 70 - 100 mg/dL [facility] LABORATORY SERVICES - [facility] INDU TOTAL PROTEIN 7.2 6.4 - 8.2 g/dL [facility] LABORATORY SERVICES - [place] ALBUMIN 3.3 (L) 3.4 - 5.0 g/dL [facility] LABORATORY SERVICES - [place] BILIRUBIN TOTAL 0.2 <=1.1 mg/dL [facility] LABORATORY SERVICES - [facility] INDU ALKALINE 83 46 - 116 U/L [facility] PHOSPHATASE LABORATORY SERVICES - [place] AST 24 10 - 40 U/L [facility] SERVICES - [place] ALT 42 14 - 63 U/L [facility]ATORY SERVICES - [place] GFR 28 mL/min/1.73 sq meter [facility] Comment: LABORATORY eGFR has not been validated SERVICES - [facility] for use in the elderly (> 70 [place] years of age), women, patients with serious [...] result. GFR, 33 mL/min/1.73 sq meter [facility] LABORATORY SERVICES - [place] ANION GAP 9 4 - 20 mmol/L [facility] LABORATORY SERVICES - [place] Specimen Blood Performing Organization Address City/State/Zipcode Ph one Number [facility] LABORATORY SERVICES CLIA# [id number] [place] [address] - [place] [address] [facility] documented in this encounter Visit Diagnoses Diagnosis Essential hypertension Unspecified essential hypertension Primary osteoarthritis involving multip le joints Prediabetes Other abnormal glucose Gout Gout, unspecified Hyperlipidemia Other and unspecified hyperlipidemia documented in this encounter
--- OUTSIDE RECORDS SUMMARY | 2019-08-19 16:08 | XMS REPORT | Encounter Summary ---
Author Author [facility] Organization [facility] Address Unknown Phone Unavailable Care Team Providers Care Voicer Name Role Phone Carlotta Aguayo MD PCP Unavailable Reason for Visit * Reason Comments Medication Refill Encounter Details Care Team Description Date Type Department Carlotta Aguayo MD NO ADDRESS ON FILE 01/05/2014 Refill [facility] [address] [address] Social History Date Tobacco Use Types Packs/Day Years Used Never Smoker Smokeless Tobacco: Never Used Drinks/Week oz/Week Comments Alcohol Use No Sex Assigned at Date Recorded Not on file documented as of this encounter Plan of Treatment Not on filedocumented as of this encounter Visit Diagnoses Not on filedocumented in this encounter
--- OUTSIDE RECORDS SUMMARY | 2019-08-19 16:08 | XMS REPORT | Encounter Summary ---
Author Author [facility] Organization [facility] Address Unknown Phone Unavailable Care Team Providers Care Produce Inspector Name Role Phone Carlotta Aguayo MD PCP Unavailable Reason for Visit * Reason Comments Follow Up 3 mos & 1 mos Results lab Overweight discuss Encounter Details Care Team Description Date Type Department Carlotta Aguayo MD NO ADDRESS ON FILE Hypertension (Primary Dx); Hyperlipidemia 06/16/2014 Office Visit [address] [address] Social History Date Tobacco Use Types Packs/Day Years Used Never Smoker Smokeless Tobacco: Never Used Drinks/Week oz/Week Comments Alcohol Use No Sex Assigned at Date Recorded Not on file documented as of this encounter Last Filed Vital Signs Reading Time Taken Comments Vital Sign 110/60 06/16/2014 9:33 AM CDT Blood Pressure 80 06/16/2014 9:33 AM CDT Pulse - - Temperature - - Respiratory Rate - - Oxygen Saturation - - Inhaled Oxygen Concentration 67.1 kg (148 lb) 06/16/2014 9:33 AM CDT Weight 154.9 cm (5' 1") 06/16/2014 9:33 AM CDT Height 27.96 06/16/2014 9:33 AM CDT Body Mass Index documented in this encounter Progress Notes * Goyo Aguayo MD - 06/28/2014 5:55 PM CDT HISTORY OF PRESENT ILLNESS Era [...] Neurological: Negative for weakness. PHYSICAL EXAM BP 110/60 | Pulse 80 | Ht 5' 1" (1.549 m) | Wt 148 lb (67.132 kg) | BMI 27.9 8 kg/m2 Physical Exam [nursing notereviewed. Constitutional: She [...] dry. Lab Results Component Value Date/Time NA 138 06/16/2014 8:12 AM K 3.6 06/16/2014 8:12 AM CL 102 06/16/2014 8:12 AM CO2 23 06/16/2014 8:12 AM CA 9.1 06/16/2014 8:12 AM BUN 22* 06/16/2014 8:12 AM CREAT 1.73* 06/16/2014 8:12 AM GLUCOSE 98 06/16/2014 8:12 AM TOTALPROTEIN 7.5 06/16/2014 8:12 AM ALBUMIN 3.3* 06/16/2014 8:12 AM BILITOTAL 0.3 06/16/2014 8:12 AM ALKPHOS 136 06/16/2014 8:12 AM AST 22 06/16/2014 8:12 AM ALT 36 06/16/2014 8:12 AM ANIONGAP 13 06/16/2014 8:12 AM BCRATIO 13.5 03/06/2012 7:50 AM Lab Results Component Value Date/Time CHOLTOT 243 06/16/2014 8:12 AM HDL 101 06/16/2014 8:12 AM LDLCALC 120 06/16/2014 8:12 AM LDLDIRECT 122 06/06/2011 8:02 AM TRIGLYCERIDE 108 06/16/2014 8:12 AM ASSESSMENT and PLAN: ICD-9-CM ICD-10-CM 1. Hypertension 401.9 I10 COMPREHENSIVE METABOLIC PANEL 2. Hyperlipidemia 272.4 E78.5 The current medical regimen is effective; continue present plan and medication s.Current outpatient prescriptions:ALPRAZolam (XANAX) 0.25 mg tablet, Take 1 Tab by mouth 3 times daily as needed for Anxiety., Disp: 60 Tab, Rfl: 3; furosemid e (LASIX) 20 mg tablet, Take 1 Tab by mouth daily., Disp: 30 Tab, Rfl: 5; HYDRO codone-acetaminophen (NORCO) 5-325 mg tablet, Take 1 Tab [...] COMPREHENSIVE METABOLIC PANEL (09/16/2014 8:35 AM CDT) [facility] SODIUM 143 134 - 145 mmol/L [facility] - [facility] INDU POTASSIUM 3.7 3.5 - 5.1 mmol/L [facility] [place] CHLORIDE 106 98 - 107 mmol/L [facility] [place] CO2 21 (L) 22 - 31 mmol/L [facility] [place] CALCIUM 8.8 8.5 - 10.1 mg/dL [facility] [place] BUN 26 (H) 7 - 20 mg/dL [facility] [place] CREATININE 1.68 (H) 0.51 - 0.95 mg/dL [facility] Comment: LABORATORY The GFR result is not SERVICES - [facility] clinically significant on [place] patients <18 or >70 years of age. GLUCOSE 96 70 - 100 mg/dL [facility] [place] TOTAL PROTEIN 7.3 6.4 - 8.2 g/dL [facility] - [place] ALBUMIN 3.6 3.4 - 5.0 g/dL [facility] [place] BILIRUBIN TOTAL 0.5 <=1.1 mg/dL [facility] - [facility] INDU ALKALINE 98 46 - 116 U/L [facility] PHOSPHATASE LABORATORY SERVICES - [facility] INDU AST 26 10 - 40 U/L [facility]ATORY SERVICES - [place] ALT 48 14 - 63 U/L [facility] [place] GFR 30 mL/min/1.73 sq meter [facility] Comment: LABORATORY eGFR has not been validated SERVICES - [facility] for use in the elderly (> 70 [place] years of age), women, patients with serious [...] GFR result. GFR, 36 mL/min/1.73 sq meter [facility] SERVICES - [facility] INDU ANION GAP 16 4 - 20 mmol/L [facility] LAB[facility]ATORY SERVICES - [place] Specimen Blood Performing Organization Address City/State/Zipcode Ph one Number [facility] LABORATORY SERVICES CLIA# [id number] [place] [address] - [place] [address] documented in this encounter Visit Diagnoses Diagnosis Hypertension Unspecified essential hypertension Hyperlipidemia Other and unspecified hyperlipidemia documented in this encounter
--- OUTSIDE RECORDS SUMMARY | 2019-08-19 16:09 | XMS REPORT | Encounter Summary ---
Author Author [facility] Organization [facility] Address Unknown Phone Unavailable Care Team Providers Care Safety And Security Officer Name Role Phone Carlotta Aguayo MD PCP Unavailable Reason for Visit * Reason Comments Hypertension lab results Cholesterol Problem Encounter Details Care Team Description Date Type Department Carlotta Aguayo MD NO ADDRESS ON FILE Hypertension (Primary Dx); DA (degenerative arthritis); Hyperlipidemia 12/25/2012 Office Visit [address] [address] Social History Date Tobacco Use Types Packs/Day Years Used Never Smoker Smokeless Tobacco: Never Used Drinks/Week oz/Week Comments Alcohol Use No Sex Assigned at Date Recorded Not on file documented as of this encounter Last Filed Vital Signs Reading Time Taken Comments Vital Sign 124/82 12/25/2012 10:10 AM CDT Blood Pressure 60 12/25/2012 10:10 AM CDT Pulse - - Temperature - - Respiratory Rate - - Oxygen Saturation - - Inhaled Oxygen Concentration 71.7 kg (158 lb) 12/25/2012 10:10 AM CDT Weight 154.9 cm (5' 1") 12/25/2012 10:10 AM CDT Height 29.85 12/25/2012 10:10 AM CDT Body Mass Index documented in this encounter Progress Notes * Goyo Aguayo MD - 12/25/2012 10:52 PM CDT HISTORY OF PRESENT ILLNESS [place] Mathis Viveros, a 72 y.o. female. HPI here in follow up [...] Neurological: Negative for weakness. PHYSICAL EXAM BP 124/82 | Pulse 60 | Ht 5' 1" (1.549 m) | Wt 158 lb (71.668 kg) | BMI 29.87 kg /m2 Physical Exam [nursing notereviewed. Constitutional: She is [...] is warm and dry. ASSESSMENT and PLAN: (401.9) Hypertension (715.90) DA (degenerative arthritis) - Plan: methylPREDNISolone Acetate (DEPO-ME DROL) injection 80 mg, dexamethasone (DECADRON) injection 4 mg (272.4) Hyperlipidemia - Plan: COMPREHENSIVE METABOLIC PANEL, LIPID PANEL The cu rrent medical regimen is effective; continue present plan and medications. Current outpatient prescriptions:colchicine-probenecid (COLBENEMID) 0.5-500 mg O ral Tab, Take 1 Tab by mouth daily., Disp: 60 Tab, Rfl: 3; HYDROcodone-acetamin ophen (NORCO) 5-325 mg Oral tablet, Take 1 Tab by mouth every 4 hours as needed for Pain, Moderate., Disp: 20 Tab, Rfl: 2; raloxifene (EVISTA) 60 mg Oral table t, Take 1 Tab by mouth daily., Disp: 30 Tab, Rfl: 5 metoprolol tartrate (LOPRESSOR) 25 mg Oral tablet, Take 1 Tab by mouth 2 times d aily., Disp: 60 Tab, Rfl: 5; NIFEdipine SR 24 hour (PROCARDIA XL) 30 mg Oral ta blet, Take 1 Tab by mouth 2 times daily., Disp: 60 Tab, Rfl: 5; dicyclomine (BE NTYL) 20 mg Oral tablet, Take 1 Tab by mouth 4 times daily before meals and at b edtime., Disp: 120 Tab, Rfl: 5; lansoprazole (PREVACID) 15 mg Oral CpDR, Take 1 5 mg by mouth. Qod , Disp: , Rfl: aspirin (BABY ASPIRIN) 81 mg Oral Chew, Take 81 mg by mouth. Qod , Disp: , Rfl: ; OMEGA-3 FATTY ACIDS (FISH OIL PO), Take 3 Tabs by mouth daily., Disp: , Rfl: Current facility-administered medications:[COMPLETED] methylPREDNISolone Acetate (DEPO-MEDROL) injection 80 mg, 80 mg, IM, ONCE, Goyo Aguayo MD, 80 mg at 12/25/12 1110; [COMPLETED] dexamethasone (DECADRON) injection 4 mg, 4 mg, IM, O NCE, Goyo Aguayo MD, 4 mg at 12/25/12 1110 documented in this encounter Plan of Treatment Not on filedocumented as of this encounter Results * LIPID PANEL (03/10/2013 8:30 AM LIVE IN COMPANION) CHOLESTEROL 235 mg/dL [facility] TRIGLYCERIDE 93 mg/dL [facility] HDL 79 mg/dL [facility] LDL CALCULATED 137 (H) <=130 mg/dL [facility] Specimen Blood specimen (specimen) Narrative Performed At TOTAL CHOLESTEROL mg/dL [facility] LABORATORY Desirable <200 SERVICES - [facility] Borderline high 200-239 [place] High >=240 TRIGLYCERIDES mg/dL Normal <150 Borderline high 150-199 High 200-499 Very high >=500 HDL CHOLESTEROL mg/dL Low <40 Normal 40-60 Desirable >60 LDL CHOLESTEROL mg/dL Optimal <100 Low risk 100-129 Borderline high 130-159 High 160-189 Very high >=190 Based on AHA/NCEP Guidelines Performing Organization Address City/State/Zipcode Ph one Number [facility]AT[facility] SERVICES CLIA# [id number] K[place]STA [place]UR[place] [address] - [place] [address] [place] [address] LABORATORY SERVICES IA# [id number] [place] [address] - [facility] INDU [address] [place] [address] * COMPREHENSIVE METABOLIC PANEL (03/10/2013 8:30 AM LIVE IN COMPANION) [facility] SODIUM 141 134 - 145 mmol/L [facility] [place] POTASSIUM 4.0 3.5 - 5.1 mmol/L [facility] [place] CHLORIDE 108 (H) 98 - 107 mmol/L [facility] - [facility] INDU CO2 23 22 - 31 mmol/L [facility] - [facility] INDU CALCIUM 8.8 8.5 - 10.1 mg/dL [facility] - [facility] INDU BUN 18 7 - 20 mg/dL [facility] [place] CREATININE 1.75 (H) 0.51 - 0.95 mg/dL [facility] - [facility] INDU GLUCOSE 98 70 - 100 mg/dL [facility] [place] TOTAL PROTEIN 7.8 6.4 - 8.2 g/dL [facility] - [facility] INDU ALBUMIN 3.5 3.4 - 5.0 g/dL [facility] [place] BILIRUBIN TOTAL 0.3 <=1.1 mg/dL [facility] - [facility] INDU ALKALINE 106 40 - 136 U/L [facility] PHOSPHATASE LAB[facility]ATORY SERVICES - [facility] INDU AST 15 10 - 40 U/L [facility] - [facility] INDU ALT 37 25 - 70 U/L [facility] [place] GFR 29 (L) >=60 mL/min/1.73 sq [facility] Comment: meter LABORATORY eGFR has not been validated SERVICES - [facility] for use in the elderly (> 70 [place] years of age), women, patients with serious co-morbid conditions, or persons with extremes of body size or muscle mass and should also be interpreted with caution in patients with acute kidney failure, dialysis dependant patients, patients reporting exceptional dietary intake (e.g. vegetarian diet, high protein diets, creatine supplementation), and patients with severe liver disease. Based on National Kidney Disease Education Program GFR, 35 (L) >=60 mL/min/1.73 sq [facility] Comment: meter LABORATORY eGFR has not been validated SERVICES - [facility] for use in the elderly (> 70 [place] years of age), women, patients with serious co-morbid conditions, or persons with extremes of body size or muscle mass and should also be interpreted with caution in patients with acute kidney failure, dialysis dependant patients, patients reporting exceptional dietary intake (e.g. vegetarian diet, high protein diets, creatine supplementation), and patients with severe liver disease. Based on National Kidney Disease Education Program Specimen Blood specimen (specimen) Performing Organization Address City/State/Zipcode Ph one Number [facility]ATORY SERVICES CLIA# [id number] [place] [address] - [address] LABORATORY SERVICES CLIA# [id number] [place] [address] - [address] documented in this encounter Visit Diagnoses Diagnosis Hypertension Unspecified essential hypertension DA (degenerative arthritis) Osteoarthrosis, unspecified whether gen eralized or localized, unspecified site Hyperlipidemia Other and unspecified hyperlipidemia documented in this encounter Administered Medications Action Date Dose Rate Site Medication Order MAR Action 12/25/2012 11:10 AM CDT 4 mg Left Upp er Outer Quadrant dexamethasone (DECADRON) injection 4 mg Given 4 mg, IM, ONE TIME ONLY, 1 dose, Nathaly 12/25/12 at 1115, Routine 12/25/2012 11:10 AM CDT 80 mg Left Upp er Outer Quadrant methylPREDNISolone Acetate (DEPO-MEDROL) Given injection 80 mg 80 mg, IM, ONE TIME ONLY, 1 dose, Nathaly 12/25/12 at 1115, Routine documented in this encounter
--- OUTSIDE RECORDS SUMMARY | 2019-08-19 16:09 | XMS REPORT | Encounter Summary ---
Author Author [facility] Organization [facility] Address Unknown Phone Unavailable Care Team Providers Care Frothing Machine Operator Name Role Phone Carlotta Aguayo MD PCP Unavailable Encounter Details Care Team Description Date Type Department Carlotta Aguayo MD NO ADDRESS ON FILE Ftsc, Outpt Lab 03/10/2013 [facility] Outpatient Encounter Laboratory [address] [address] Social History Date Tobacco Use Types Packs/Day Years Used Never Smoker Smokeless Tobacco: Never Used Drinks/Week oz/Week Comments Alcohol Use No Sex Assigned at Date Recorded Not on file documented as of this encounter Medications at Time of Discharge Start Date End Date Medication Sig Dispensed Refills 02/17/2013 08/17/2013 metoprolol tartrate Take 1 Tab by 60 Tab 5 (LOPRESSOR) 25 mg tablet mouth 2 times daily. 02/02/2013 07/27/2013 NIFEdipine SR 24 hour Take 1 Tab by 60 Tab 5 (PROCARDIA-XL) 30 mg mouth 2 times tablet daily. 09/25/2012 11/17/2013 colchicine-probenecid Take 1 Tab by 60 Tab 3 (COLBENEMID) 0.5-500 mg mouth daily. Oral TabIndications: DA (degenerative arthritis), Hyperlipidemia 09/03/2012 09/10/2013 HYDROcodone-acetaminophen Take 1 Tab by 20 Tab 2 (NORCO) 5-325 mg Oral mouth every 4 tabletIndications: Knee hours as pain needed for Pain, Moderate. 07/15/2012 07/13/2013 dicyclomine (BENTYL) 20 Take 1 Tab by 120 Tab 5 mg Oral tablet mouth 4 times daily before meals [...] Date/Time Associated Diag nosis LIPID PANEL Stat 03/10/2013 Hyperlipidemia 8:30 AM DISTRICT RANGER COMPREHENSIVE METABOLIC Routine 03/10/2013 Hyperl ipidemia PANEL 8:30 AM DISTRICT RANGER documented in this encounter Results * LIPID PANEL (03/10/2013 8:30 AM DISTRICT RANGER) CHOLESTEROL 235 mg/dL [facility] LAB[facility]AT[facility] SERVICES - [place] TRIGLYCERIDE 93 mg/dL [facility] [place] HDL 79 mg/dL [facility] [place] LDL CALCULATED 137 (H) <=130 mg/dL [facility] LAB[facility]AT[facility] - [place] INDU Specimen Blood specimen (specimen) Narrative Performed At TOTAL CHOLESTEROL mg/dL [facility] LABORATORY Desirable <200 SERVICES - [facility] Borderline high 200-239 [place] High >=240 TRIGLYCERIDES mg/dL Normal <150 Borderline high 150-199 High 200-499 Very high >=500 HDL CHOLESTEROL mg/dL Low <40 Normal 40-60 Desirable >60 LDL CHOLESTEROL mg/dL Optimal <100 Low risk 100-129 Borderline high 130-159 High 160-189 Very high >=190 Based on AHA/NCEP Guidelines Performing Organization Address City/State/Zipcome Ph one Number [facility]ATORY SERVICES CLIA# [id number] [place], [place] [address] - [address] LABORATORY SERVICES CLIA# [id number] [place] [address] - [address] * COMPREHENSIVE METABOLIC PANEL (03/10/2013 8:30 AM DISTRICT RANGER) SODIUM 141 134 - 145 mmol/L [facility] - [place] POTASSIUM 4.0 3.5 - 5.1 mmol/L [facility] LAB[facility]ATORY [facility] [place] CHLORIDE 108 (H) 98 - 107 mmol/L [facility] LAB[facility]AT[facility] [place] CO2 23 22 - 31 mmol/L [facility]AT[facility] SERVICES - [place] CALCIUM 8.8 8.5 - 10.1 mg/dL [facility] - [place] BUN 18 7 - 20 mg/dL [facility] SERVICES - [place] CREATININE 1.75 (H) 0.51 - 0.95 mg/dL [facility] - [place] GLUCOSE 98 70 - 100 mg/dL [facility] - [facility] INDU TOTAL PROTEIN 7.8 6.4 - 8.2 g/dL [facility] LABORATORY SERVICES - [facility] INDU ALBUMIN 3.5 3.4 - 5.0 g/dL [facility] - [facility] INDU BILIRUBIN TOTAL 0.3 <=1.1 mg/dL [facility] - [facility] INDU ALKALINE 106 40 - 136 U/L [facility] PHOSPHATASE LABORATORY SERVICES - [place] AST 15 10 - 40 U/L [facility] LABORATORY SERVICES - [place] ALT 37 25 - 70 U/L [facility]ATORY SERVICES - [place] GFR 29 (L) >=60 mL/min/1.73 sq [facility] Comment: meter LABORATORY eGFR has not been validated [facility] for use in the elderly (> 70 [place] years of age), women, patients with serious [...] Program GFR, 35 (L) >=60 mL/min/1.73 sq [facility] [place] Comment: meter LABORATORY eGFR has not been validated [facility] for use in the elderly (> 70 [place] years of age), women, patients with serious [...] Performing Organization Address City/State/Zipcode Ph one Number [facility] LABORATORY SERVICES CLIA# [id number] [place] [address] - [place] [address] [facility] LABORATORY SERVICES CLIA# [id number] [place] [address] - [place] [address] documented in this encounter Visit Diagnoses Diagnosis Hyperlipidemia Other and unspecified hyperlipidemia documented in this encounter
--- OUTSIDE RECORDS SUMMARY | 2019-08-19 16:09 | XMS REPORT | Encounter Summary ---
Author Author [facility] Organization [facility] Address Unknown Phone Unavailable Care Team Providers Care Bale Stacker Name Role Phone Carlotta Aguayo MD PCP Unavailable Encounter Details Care Team Description Date Type Department Carlotta Aguayo MD NO ADDRESS ON FILE Ftsc, Outpt Lab 06/09/2013 [facility] Outpatient Encounter Laboratory [address] [address] Social History Date Tobacco Use Types Packs/Day Years Used Never Smoker Smokeless Tobacco: Never Used Drinks/Week oz/Week Comments Alcohol Use No Sex Assigned at Date Recorded Not on file documented as of this encounter Medications at Time of Discharge Start Date End Date Medication Sig Dispensed Refills 06/09/2013 03/04/2014 furosemide (LASIX) 20 mg Take 1 Tab by 30 Tab 5 tabletIndications: Edema mouth daily. 02/17/2013 08/17/2013 metoprolol tartrate Take 1 Tab [...] Date/Time Associated Diag nosis LIPID PANEL Stat 06/09/2013 Hyperlipidemia 8:33 AM CDT COMPREHENSIVE METABOLIC Stat 06/09/2013 Hyperl ipidemia PANEL 8:33 AM CDT documented in this encounter Results * COMPREHENSIVE METABOLIC PANEL (06/09/2013 8:33 AM CDT) [facility] SODIUM 138 134 - 145 mmol/L [facility] - [place] POTASSIUM 3.6 3.5 - 5.1 mmol/L [facility] - [facility] INDU CHLORIDE 104 98 - 107 mmol/L [facility] - [facility] INDU CO2 25 22 - 31 mmol/L [facility] - [place] CALCIUM 9.4 8.5 - 10.1 mg/dL [facility] [place] BUN 22 (H) 7 - 20 mg/dL [facility] - [facility] INDU CREATININE 1.70 (H) 0.51 - 0.95 mg/dL [facility] - [place] GLUCOSE 97 70 - 100 mg/dL [facility] - [facility] INDU TOTAL PROTEIN 8.1 6.4 - 8.2 g/dL [facility] - [facility] INDU ALBUMIN 3.8 3.4 - 5.0 g/dL [facility] - [facility] INDU BILIRUBIN TOTAL 0.4 <=1.1 mg/dL [facility] LABORATORY SERVICES - [place] ALKALINE 102 40 - 136 U/L [facility] PHOSPHATASE LABORATORY SERVICES - [place] AST 39 10 - 40 U/L [facility] - [facility] INDU ALT 44 25 - 70 U/L [facility] - [place] GFR 30 mL/min/1.73 sq meter [facility] Comment: LABORATORY The GFR result is not SERVICES - [facility] clinically significant on [place] patients <18 or >70 years of age. GFR, 36 mL/min/1.73 sq meter [facility] LAB[facility]ATORY SERVICES - [place] Specimen Blood specimen (specimen) Performing Organization Address City/[facility] Ph one [facility] LABORATORY SERVICES CLIA# [id number] KRISTA LAUR[place] [address] - [place] [address] [place] [address] LABORATORY SERVICES CLIA# [id number] [place] [address] - [address] * LIPID PANEL (06/09/2013 8:33 AM CDT) CHOLESTEROL 232 mg/dL [facility] LABORATORY SERVICES - [place] TRIGLYCERIDE 85 mg/dL [facility] LABORATORY SERVICES - [place] HDL 82 mg/dL [facility] [place] LDL CALCULATED 133 (H) <=130 mg/dL [facility] - [place] INDU Specimen Blood specimen (specimen) Narrative Performed At TOTAL CHOLESTEROL mg/dL [facility] LABORATORY Desirable <200 SERVICES - [facility] Borderline high 200-239 [place] High >=240 TRIGLYCERIDES mg/dL Normal <150 Borderline high 150-199 High 200-499 Very high >=500 HDL CHOLESTEROL mg/dL Low <40 Normal 40-60 Desirable >60 LDL CHOLESTEROL mg/dL Optimal <100 Low risk 100-129 Borderline high 130-159 High 160-189 Very high >=190 Based on AHA/NCEP Guidelines Performing Organization Address City/[facility] Ph one Ken [facility] LABORATORY SERVICES CLIA# [id number] KRISTA LAUREN [address] - [facility] INDU [address] [place] [address] LABORATORY SERVICES CLIA# [id number] [place] [address] - [address] documented in this encounter Visit Diagnoses Diagnosis Hyperlipidemia Other and unspecified hyperlipidemia documented in this encounter
--- OUTSIDE RECORDS SUMMARY | 2019-08-19 16:09 | XMS REPORT | Encounter Summary ---
Author Author [facility] Organization [facility] Address Unknown Phone Unavailable Care Team Providers Care Cranberry Sorter Name Role Phone Carlotta Aguayo MD PCP Unavailable Reason for Visit * Reason Comments Medication Refill Encounter Details Care Team Description Date Type Department Carlotta Aguayo MD NO ADDRESS ON FILE 02/02/2013 Refill [facility] [address] [address] Social History Date Tobacco Use Types Packs/Day Years Used Never Smoker Smokeless Tobacco: Never Used Drinks/Week oz/Week Comments Alcohol Use No Sex Assigned at Date Recorded Not on file documented as of this encounter Plan of Treatment Not on filedocumented as of this encounter Visit Diagnoses Not on filedocumented in this encounter
--- OUTSIDE RECORDS SUMMARY | 2019-08-19 16:09 | XMS REPORT | Encounter Summary ---
Author Author [facility] Organization [facility] Address Unknown Phone Unavailable Care Team Providers Care Electric Meter Setter Name Role Phone Carlotta Aguayo MD PCP Unavailable Reason for Visit * Reason Comments Follow Up 10 weeks Results lab Joint Pain requesting shot Encounter Details Care Team Description Date Type Department Carlotta Aguayo MD NO ADDRESS ON FILE DA (degenerative arthritis) (Primary Dx) ; Hyperlipidemia 03/10/2013 Office Visit [facility] [address] [address] Social History Date Tobacco Use Types Packs/Day Years Used Never Smoker Smokeless Tobacco: Never Used Drinks/Week oz/Week Comments Alcohol Use No Sex Assigned at Date Recorded Not on file documented as of this encounter Last Filed Vital Signs Reading Time Taken Comments Vital Sign 154/108 03/10/2013 9:31 AM AIR SAMPLER Blood Pressure - - Pulse - - Temperature - - Respiratory Rate - - Oxygen Saturation - - Inhaled Oxygen Concentration 70.3 kg (155 lb) 03/10/2013 9:31 AM AIR SAMPLER Weight 154.9 cm (5' 1") 03/10/2013 9:31 AM AIR SAMPLER Height 29.29 03/10/2013 9:31 AM AIR SAMPLER Body Mass Index documented in this encounter Progress Notes * Goyo Aguayo MD - 03/11/2013 9:36 PM AIR SAMPLER HISTORY OF PRESENT ILLNESS Era Viveros, a 72 y.o. female. HPI here with follow up DA and hypertension. Recurrent L hip pain . follow up hy pertension and hyperlipidemia. REVIEW OF SYSTEMS Review of Systems Constitutional: Negative for fever, activity change, appetite change, fatigue an d unexpected weight change. HENT: Negative for congestion and neck stiffness. Respiratory: Negative for shortness of breath. Cardiovascular: Negative for chest pain. Gastrointestinal: neg Genitourinary: Negative for menstrual problem. Musculoskeletal: L hip ache Neurological: Negative for weakness. PHYSICAL EXAM BP 154/108 | Ht 5' 1" (1.549 m) | Wt 155 lb (70.308 kg) | BMI 29.3 kg/m2 Physical Exam Nursing note and vitals [...] normal. Abdominal: Soft. Bowel sounds are normal. She exhibits no distension and no mass . There is tenderness (mild L). There is no rebound and no guarding. Musculoskeletal: Normal range of motion. She exhibits tenderness (low back). and L hip, no red or effusion, FROM Neurological: She is alert and oriented to person, place, and time. Skin: Skin is warm and dry. ASSESSMENT and PLAN: (045.90) DA (degenerative arthritis) - Plan: dexamethasone (DECADRON) injection 4 mg, methylPREDNISolone Acetate (DEPO-MEDROL) injection 80 mg (272.4) Hyperlipidemia - Plan: COMPREHENSIVE METABOLIC PANEL, LIPID PANEL SAMPLER documented in this encounter Plan of Treatment Not on filedocumented as of this encounter Results * LIPID PANEL (06/09/2013 8:33 AM CDT) CHOLESTEROL 232 mg/dL [facility] [place] TRIGLYCERIDE 85 mg/dL [facility] HDL 82 mg/dL [facility] LDL CALCULATED 133 (H) <=130 mg/dL [facility] Specimen Blood specimen (specimen) Narrative Performed At TOTAL CHOLESTEROL mg/dL [facility] Desirable <200 SERVICES - [facility] Borderline high 200-239 INDU High >=240 TRIGLYCERIDES mg/dL Normal <150 Borderline high 150-199 High 200-499 Very high >=500 HDL CHOLESTEROL mg/dL Low <40 Normal 40-60 Desirable >60 LDL CHOLESTEROL mg/dL Optimal <100 Low risk 100-129 Borderline high 130-159 High 160-189 Very high >=190 Based on AHA/NCEP Guidelines Performing Organization Address City/State/Zipcode Ph one Number [facility] CLIA# [id number] [place] [address] - [facility] INDU [address] [place] [address] LABORATORY SERVICES CLIA# [id number] [place] [address] - [address] * COMPREHENSIVE METABOLIC PANEL (06/09/2013 8:33 AM CDT) SODIUM 138 134 - 145 mmol/L [facility] [place] POTASSIUM 3.6 3.5 - 5.1 mmol/L [facility] [place] CHLORIDE 104 98 - 107 mmol/L [facility] [place] CO2 25 22 - 31 mmol/L [facility] - [facility] INDU CALCIUM 9.4 8.5 - 10.1 mg/dL [facility] [place] BUN 22 (H) 7 - 20 mg/dL [facility] [place] CREATININE 1.70 (H) 0.51 - 0.95 mg/dL [facility] [place] GLUCOSE 97 70 - 100 mg/dL [facility] [place] TOTAL PROTEIN 8.1 6.4 - 8.2 g/dL [facility] [place] ALBUMIN 3.8 3.4 - 5.0 g/dL [facility]ORATORY SERVICES - [facility] INDU BILIRUBIN TOTAL 0.4 <=1.1 mg/dL [facility]ATORY [facility] - [place] ALKALINE 102 40 - 136 U/L [facility] - [place] AST 39 10 - 40 U/L [facility] [place] ALT 44 25 - 70 U/L [facility] [place] GFR 30 mL/min/1.73 sq meter [facility] Comment: LABORATORY The GFR result is not SERVICES - [facility] clinically significant on HURST patients <18 or >70 years of age. GFR, 36 mL/min/1.73 sq meter [facility] [place] Specimen Blood specimen (specimen) Performing Organization Address City/State/Zipcode Ph one Number [facility] CLIA# [id number] [place]STA LAUR[place] [address] [address] LABORATORY SERVICES CLIA# [id number] [place] [address] - [address] documented in this encounter Visit Diagnoses Diagnosis DA (degenerative arthritis) Osteoarthrosis, unspecified whether gen eralized or localized, unspecified site Hyperlipidemia Other and unspecified hyperlipidemia documented in this encounter Administered Medications Action Date Dose Rate Site Medication Order MAR Action 03/10/2013 12:09 PM AIR SAMPLER 4 mg Left Upp er Outer Quadrant dexamethasone (DECADRON) injection 4 mg Given 4 mg, IM, ONE TIME ONLY, 1 dose, Sat03/10/13 at 1000, Routine 03/10/2013 12:10 PM AIR SAMPLER 80 mg Left Upp er Outer Quadrant methylPREDNISolone Acetate (DEPO-MEDROL) Given injection 80 mg 80 mg, IM, ONE TIME ONLY, 1 dose, Sat03/10/13 at 1000, Routine documented in this encounter
--- OUTSIDE RECORDS SUMMARY | 2019-08-19 16:09 | XMS REPORT | Encounter Summary ---
Author Author [facility] Address Unknown Phone Unavailable Care Team Providers Care Community Director Name Role Phone Carlotta Aguayo MD PCP Unavailable Reason for Visit * Reason Comments Medication Refill Encounter Details Care Team Description Date Type Department Carlotta Aguayo MD NO ADDRESS ON FILE 07/13/2013 Refill [facility] [address] [address] Social History Date Tobacco Use Types Packs/Day Years Used Never Smoker Smokeless Tobacco: Never Used Drinks/Week oz/Week Comments Alcohol Use No Sex Assigned at Date Recorded Not on file documented as of this encounter Plan of Treatment Not on filedocumented as of this encounter Visit Diagnoses Not on filedocumented in this encounter
--- OUTSIDE RECORDS SUMMARY | 2019-08-19 16:09 | XMS REPORT | Encounter Summary ---
Author Author [facility] Organization [facility] Address Unknown Phone Unavailable Care Team Providers Care Dictaphone Transcriber Name Role Phone Carlotta Aguayo MD PCP Unavailable Reason for Visit * Reason Comments Follow Up 3 mos Results lab Leg Pain left, hurts terrible Foot Swelling left Encounter Details Care Team Description Date Type Department Carlotta Aguayo MD NO ADDRESS ON FILE Gout (Primary Dx); Edema; Hyperlipidemia; Hypertension; Renal insufficiency; DA (degenerative arthritis) 06/09/[address] [facility] [address] [address] Social History Date Tobacco Use Types Packs/Day Years Used Never Smoker Smokeless Tobacco: Never Used Drinks/Week oz/Week Comments Alcohol Use No Sex Assigned at Date Recorded Not on file documented as of this encounter Last Filed Vital Signs Reading Time Taken Comments Vital Sign 154/102 06/09/2013 9:57 AM CDT Blood Pressure - - Pulse - - Temperature - - Respiratory Rate - - Oxygen Saturation - - Inhaled Oxygen Concentration 68.9 kg (152 lb) 06/09/2013 9:57 AM CDT Weight 154.9 cm (5' 1") 06/09/2013 9:57 AM CDT Height 28.72 06/09/2013 9:57 AM CDT Body Mass Index documented in this encounter Progress Notes * Goyo Aguayo MD - 06/09/2013 10:35 AM CDT HISTORY OF PRESENT ILLNESS Era Viveros, a 72 y.o. female. HPI here with follow up hypertension and renal insufficiency. Persistent edema. Issues of gout in past concern. Underlying DA. Current outpatient prescriptions: furosemide (LASIX) 20 mg tablet, Take 1 Tab by mouth daily., Disp: 30 Tab, Rfl: 5; EVISTA 60 mg tablet, Take 1 Tab by mouth daily., Disp: 30 Tab, Rfl: 5; meto prolol tartrate (LOPRESSOR) 25 mg tablet, Take 1 Tab by mouth 2 times daily., Di sp: 60 Tab, Rfl: 5; NIFEdipine SR 24 hour (PROCARDIA-XL) 30 mg tablet, Take 1 T ab by mouth 2 times daily., Disp: 60 Tab, Rfl: 5 colchicine-probenecid (COLBENEMID) 0.5-500 mg Oral Tab, Take 1 Tab by mouth anthony y., Disp: 60 Tab, Rfl: 3; HYDROcodone-acetaminophen (NORCO) 5-325 mg Oral table t, Take 1 Tab by mouth every 4 hours as needed for Pain, Moderate., Disp: 20 Tab , Rfl: 2; dicyclomine (BENTYL) 20 mg Oral tablet, Take 1 Tab by mouth 4 times d aily before meals and at bedtime., Disp: 120 Tab, Rfl: 5 lansoprazole (PREVACID) 15 mg Oral CpDR, Take 15 mg by mouth. Qod , Disp: , Rfl: ; aspirin (BABY ASPIRIN) 81 mg Oral Chew, Take 81 mg by mouth. Qod , Disp: , R fl: ; OMEGA-3 FATTY ACIDS (FISH OIL PO), Take 3 Tabs by mouth daily., Disp: , R fl: Current facility-administered medications:dexamethasone (DECADRON) injection 4 m g, 4 mg, IM, ONCE, Goyo Aguayo MD; methylPREDNISolone Acetate (DEPO-MEDRO L) injection 80 mg, 80 mg, IM, ONCE, Goyo Aguayo MD REVIEW OF SYSTEMS Review of Systems Constitutional: Negative for fever, activity change, appetite change, fatigue an d unexpected weight change. HENT: Negative for congestion and neck stiffness. Respiratory: Negative for shortness of breath. Cardiovascular: Positive for leg swelling. Negative for chest pain and palpitati ons. Gastrointestinal: Negative for abdominal pain. Genitourinary: Negative for menstrual problem. Musculoskeletal: Positive for myalgias, back pain and arthralgias. Negative for joint swelling and gait problem. Neurological: Negative for weakness. PHYSICAL EXAM BP 154/102 | Ht 5' 1" (1.549 m) | Wt 152 lb (68.947 kg) | BMI 28.74 kg/m2 Physical Exam Nursing note and vitals [...] Musculoskeletal: Normal range of motion. She exhibits edema (1+ in stocking dist ribution) and tenderness (diffusely stacie low back). Neurological: She is alert and oriented to person, place, and time. Skin: Skin is warm and dry. No rash noted. No erythema. ASSESSMENT and PLAN: (274.9) Gout - Plan: URIC ACID (782.3) Edema - Plan: furosemide (LASIX) 20 mg tablet, COMPREHENSIVE METABOLIC P LORRAINE (272.4) Hyperlipidemia - Plan: LIPID PANEL (401.9) Hypertension (593.9) Renal insufficiency (715.90) DA (degenerative arthritis) - Plan: dexamethasone (DECADRON) injection 4 mg, methylPREDNISolone Acetate (DEPO-MEDROL) injection 80 mg Current outpatient prescriptions:furosemide (LASIX) 20 mg tablet, Take 1 Tab by mouth daily., Disp: 30 Tab, Rfl: 5; EVISTA 60 mg tablet, Take 1 Tab by mouth kiko villatoro., Disp: 30 Tab, Rfl: 5; metoprolol tartrate (LOPRESSOR) 25 mg tablet, Take 1 Tab by mouth 2 times daily., Disp: 60 Tab, Rfl: 5; NIFEdipine SR 24 hour (PRO CARDIA-XL) 30 mg tablet, Take 1 Tab by mouth 2 times daily., Disp: 60 Tab, Rfl: 5 colchicine-probenecid (COLBENEMID) 0.5-500 mg Oral Tab, Take 1 Tab by mouth anthony sanchez, Disp: 60 Tab, Rfl: 3; HYDROcodone-acetaminophen (NORCO) 5-325 mg Oral table t, Take 1 Tab by mouth every 4 hours as needed for Pain, Moderate., Disp: 20 Tab , Rfl: 2; dicyclomine (BENTYL) 20 mg Oral tablet, Take 1 Tab by mouth 4 times d aily before meals and at bedtime., Disp: 120 Tab, Rfl: 5 lansoprazole (PREVACID) 15 mg Oral CpDR, Take 15 mg by mouth. Qod , Disp: , Rfl: ; aspirin (BABY ASPIRIN) 81 mg Oral Chew, Take 81 mg by mouth. Qod , Disp: , R fl: ; OMEGA-3 FATTY ACIDS (FISH OIL PO), Take 3 Tabs by mouth daily., Disp: , R fl: Current facility-administered medications:dexamethasone (DECADRON) injection 4 m g, 4 mg, IM, ONCE, Goyo Aguayo MD; methylPREDNISolone Acetate (DEPO-MEDRO L) injection 80 mg, 80 mg, IM, ONCE, Goyo Aguayo MD documented in this encounter Plan of Treatment Not on filedocumented as of this encounter Results * URIC ACID (09/10/2013 8:37 AM CDT) URIC ACID 7.5 (H) 2.6 - 6.0 mg/dL [facility] Specimen Blood Performing Organization Address City/State/[facility] Ph one Number [facility] CLIA# [id number] [place], [place] [address] - [address] CLIA# [id number] [place] [address] - [address] * LIPID PANEL (09/10/2013 8:37 AM CDT) CHOLESTEROL 243 mg/dL [facility] TRIGLYCERIDE 119 mg/dL [facility] HDL 78 mg/dL [facility] LDL CALCULATED 141 (H) <=130 mg/dL [facility] Specimen Blood Narrative Performed At TOTAL CHOLESTEROL mg/dL [facility] Desirable <200 SERVICES - [facility] Borderline high 200-239 [place] High >=240 TRIGLYCERIDES mg/dL Normal <150 Borderline high 150-199 High 200-499 Very high >=500 HDL CHOLESTEROL mg/dL Low <40 Normal 40-60 Desirable >60 LDL CHOLESTEROL mg/dL Optimal <100 Low risk 100-129 Borderline high 130-159 High 160-189 Very high >=190 Based on AHA/NCEP Guidelines Performing Organization Address City/[facility] Ph one Number [facility] CLIA# [id number] [place] [address] [address] LABORATORY SERVICES CLIA# [id number] [place] [address] - [address] * COMPREHENSIVE METABOLIC PANEL (09/10/2013 8:37 AM CDT) [facility] SODIUM 139 134 - 145 mmol/L [facility] [place] POTASSIUM 3.8 3.5 - 5.1 mmol/L [facility] [place] [facility] CHLORIDE 107 98 - 107 mmol/L [facility] [place] CO2 24 22 - 31 mmol/L [facility] [place] CALCIUM 9.1 8.5 - 10.1 mg/dL [facility] [place] BUN 23 (H) 7 - 20 mg/dL [facility] [place] CREATININE 1.78 (H) 0.51 - 0.95 mg/dL [facility] [place] GLUCOSE 96 70 - 100 mg/dL [facility] - [facility] INDU TOTAL PROTEIN 7.7 6.4 - 8.2 g/dL [facility] [place] ALBUMIN 3.7 3.4 - 5.0 g/dL [facility] - [facility] INDU BILIRUBIN TOTAL 0.3 <=1.1 mg/dL [facility] - [facility] INDU ALKALINE 105 40 - 136 U/L [facility] SERVICES - [facility] INDU AST 18 10 - 40 U/L [facility] [place] ALT 39 25 - 70 U/L [facility] [place] GFR 28 mL/min/1.73 sq meter [facility] Comment: LABORATORY The GFR result is not SERVICES - [facility] clinically significant on [place] patients <18 or >70 years of age. GFR, 34 mL/min/1.73 sq meter [facility] - [place] Specimen Blood Performing Organization Address City/[facility] Ph one Number [facility] CLIA# [id number] KRISTA LAUR[place] [address] - [address] LABORATORY SERVICES CLIA# [id number] [place] [address] - [address] documented in this encounter Visit Diagnoses Diagnosis Gout Gout, unspecified Edema Hyperlipidemia Other and unspecified hyperlipidemia Hypertension Unspecified essential hypertension Renal insufficiency Unspecified disorder of kidney and uret er DA (degenerative arthritis) Osteoarthrosis, unspecified whether gen eralized or localized, unspecified site documented in this encounter Administered Medications Action Date Dose Rate Site Medication Order MAR Action 06/09/2013 11:55 AM CDT 4 mg Left Upp er Outer Quadrant dexamethasone (DECADRON) injection 4 mg Given 4 mg, IM, ONE TIME ONLY, 1 dose, 06/09/13 at 1015, Routine 06/09/2013 11:57 AM CDT 80 mg Left Upp er Outer Quadrant methylPREDNISolone Acetate (DEPO-MEDROL) Given injection 80 mg 80 mg, IM, ONE TIME ONLY, 1 dose, 06/09/13 at 1015, Routine documented in this encounter
--- OUTSIDE RECORDS SUMMARY | 2019-08-19 16:09 | XMS REPORT | Encounter Summary ---
Author Author [facility] Organization [facility] Address Unknown Phone Unavailable Care Team Providers Care Table Assembler Name Role Phone Carlotta Aguayo MD PCP Unavailable Reason for Visit * Reason Comments Medication Refill Encounter Details Care Team Description Date Type Department Carlotta Aguayo MD NO ADDRESS ON FILE 07/27/2013 Refill [facility] [address] [address] Social History Date Tobacco Use Types Packs/Day Years Used Never Smoker Smokeless Tobacco: Never Used Drinks/Week oz/Week Comments Alcohol Use No Sex Assigned at Date Recorded Not on file documented as of this encounter Plan of Treatment Not on filedocumented as of this encounter Visit Diagnoses Not on filedocumented in this encounter
--- OUTSIDE RECORDS SUMMARY | 2019-08-19 16:09 | XMS REPORT | Encounter Summary ---
Author Author [facility] Organization [facility] Address Unknown Phone Unavailable Care Team Providers Care Plant Engineering Supervisor Name Role Phone Carlotta Aguayo MD PCP Unavailable Reason for Visit * Reason Comments Immunization/Injection Flu Encounter Details Care Team Description Date Type Department Need for prophylactic vaccin ation and inoculation against influenza (Primary Dx) 03/26/2013 Immunization [facility] [place] [address] [place] [address] Social History Date Tobacco Use [...]
--- OUTSIDE RECORDS SUMMARY | 2019-08-19 16:09 | XMS REPORT | Encounter Summary ---
Author Author [facility] Organization [facility] Address Unknown Phone Unavailable Care Team Providers Care Housing Project Manager Name Role Phone Carlotta Aguayo MD PCP Unavailable Reason for Visit * Reason Comments Medication Refill Encounter Details Care Team Description Date Type Department Bolivar Buckner MD NO ADDRESS ON FILE 02/17/2013 Refill [facility] [address] [address] Social History Date Tobacco Use Types Packs/Day Years Used Never Smoker Smokeless Tobacco: Never Used Drinks/Week oz/Week Comments Alcohol Use No Sex Assigned at Date Recorded Not on file documented as of this encounter Plan of Treatment Not on filedocumented as of this encounter Visit Diagnoses Not on filedocumented in this encounter
--- OUTSIDE RECORDS SUMMARY | 2019-08-19 16:09 | XMS REPORT | Encounter Summary ---
Author Author [facility] Organization [facility] Address Unknown Phone Unavailable Care Team Providers Care Router Operator Radial Name Role Phone Carlotta Aguayo MD PCP Unavailable Encounter Details Care Team Description Date Type Department Carlotta Aguayo MD NO ADDRESS ON FILE Ftsc, Outpt Lab 12/25/2012 [facility] Outpatient Encounter Laboratory [address] [address] Social History Date Tobacco Use Types Packs/Day Years Used Never Smoker Smokeless Tobacco: Never Used Drinks/Week oz/Week Comments Alcohol Use No Sex Assigned at Date Recorded Not on file documented as of this encounter Medications at Time of Discharge Start Date End Date Medication Sig Dispensed Refills 09/25/2012 11/17/2013 colchicine-probenecid Take 1 Tab by 60 Tab 3 (COLBENEMID) 0.5-500 mg mouth daily. Oral TabIndications: DA (degenerative arthritis), Hyperlipidemia 09/03/2012 09/10/2013 HYDROcodone-acetaminophen Take 1 Tab by 20 Tab 2 (NORCO) 5-325 mg Oral mouth every 4 tabletIndications: Knee hours as pain needed for Pain, Moderate. 09/01/2012 03/04/2013 raloxifene (EVISTA) 60 mg Take 1 Tab by 30 Tab 5 Oral tabletIndications: mouth daily. Menopausal disorder 08/18/2012 02/17/2013 metoprolol tartrate Take 1 Tab by 60 Tab 5 (LOPRESSOR) 25 mg Oral mouth 2 times tabletIndications: daily. Hypertension 08/04/2012 02/02/2013 NIFEdipine SR 24 hour Take 1 Tab by 60 Tab 5 (PROCARDIA XL) 30 mg Oral mouth 2 times tablet daily. 07/15/2012 07/13/2013 dicyclomine (BENTYL) 20 Take 1 [...] Priority Date/Time Associated Diag nosis COMPREHENSIVE METABOLIC Routine 12/25/2012 Hypert ension PANEL 8:36 AM CDT Abdominal pain, generalized documented in this encounter Results * COMPREHENSIVE METABOLIC PANEL (12/25/2012 8:36 AM CDT) SODIUM 143 134 - 145 mmol/L [facility] - [place] POTASSIUM 4.1 3.5 - 5.1 mmol/L [facility] INDU CHLORIDE 109 (H) 98 - 107 mmol/L [facility] IN[facility] CO2 21 (L) 22 - 31 mmol/L [facility] INDU CALCIUM 8.8 8.5 - 10.1 mg/dL [facility] [place] BUN 19 7 - 20 mg/dL [facility] INDU CREATININE 1.72 (H) 0.51 - 0.95 mg/dL [facility] INDU GLUCOSE 100 70 - 100 mg/dL [facility] [place] TOTAL PROTEIN 7.8 6.4 - 8.2 g/dL [facility] INDU ALBUMIN 3.6 3.4 - 5.0 g/dL [facility] [place] BILIRUBIN TOTAL 0.3 <=1.1 mg/dL [facility] INDU ALKALINE 96 40 - 136 U/L [facility]ORATORY SERVICES - [place] AST 24 10 - 40 U/L [facility] [place] ALT 44 25 - 70 U/L [facility] [place] [facility] GFR 29 (L) >=60 mL/min/1.73 sq [facility] Comment: meter LABORATORY eGFR has not been validated SERVICES [facility] for use in the elderly (> 70 [...] Program GFR, 35 (L) >=60 mL/min/1.73 sq [facility] Comment: meter LABORATORY eGFR has not been validated [facility] for use in the elderly (> [...] Specimen Blood specimen (specimen) Performing Organization Address City/State/[place] Ph one Number [facility] CLIA# [id number] [place] [address] [address] LABORATORY SERVICES CLIA# [id number] [place]UR[place] [address] - [address] documented in this encounter Visit Diagnoses Diagnosis Hypertension Unspecified essential hypertension Abdominal pain, generalized documented in this encounter
--- OUTSIDE RECORDS SUMMARY | 2019-08-19 16:09 | XMS REPORT | Encounter Summary ---
Author Author [facility] Organization [facility] Address Unknown Phone Unavailable Care Team Providers Care Swimming Teacher Name Role Phone Carlotta Aguayo MD PCP Unavailable Reason for Visit * Reason Comments Medication Refill Encounter Details Care Team Description Date Type Department Self, Bradly Ayala MD [address] [place] [address] 09/02/[address] [facility] [address] [place] [address] Social History Date Tobacco Use Types Packs/Day Years Used Never Smoker Smokeless Tobacco: Never Used Drinks/Week oz/Week Comments Alcohol Use No Sex Assigned at Date Recorded Not on file documented as of this encounter Plan of Treatment Not on filedocumented as of this encounter Visit Diagnoses Not on filedocumented in this encounter
--- OUTSIDE RECORDS SUMMARY | 2019-08-19 16:09 | XMS REPORT | Encounter Summary ---
Author Author [facility] Organization [facility] Address Unknown Phone Unavailable Care Team Providers Care Ampoule Washing Machine Operator Name Role Phone Carlotta Aguayo MD PCP Unavailable Reason for Visit * Reason Comments Medication Refill Encounter Details Care Team Description Date Type Department Carlotta Aguayo MD NO ADDRESS ON FILE 08/17/2013 Refill [facility] [address] [address] Social History Date Tobacco Use Types Packs/Day Years Used Never Smoker Smokeless Tobacco: Never Used Drinks/Week oz/Week Comments Alcohol Use No Sex Assigned at Date Recorded Not on file documented as of this encounter Plan of Treatment Not on filedocumented as of this encounter Visit Diagnoses Not on filedocumented in this encounter
--- OUTSIDE RECORDS SUMMARY | 2019-08-19 16:09 | XMS REPORT | Encounter Summary ---
Author Author [facility] Organization [facility] Address Unknown Phone Unavailable Care Team Providers Care Industrial Machinery Mechanic Name Role Phone Carlotta Aguayo MD PCP Unavailable Reason for Referral * Outpatient Services (Routine) Referred By Contact Referred To Contact Status Reason Specialty Diagnoses / Procedures Carlotta Aguayo MD NO ADDRESS ON FILE Closed Diagnoses Back pain Radiculopathy P rocedures MRI LUMBAR WO CONTRAST Reason for Visit * Outpatient Services (Routine) Referred By Contact Referred To Contact Status Reason Specialty Diagnoses / Procedures Carlotta Aguayo MD NO ADDRESS ON FILE Closed Diagnoses Back pain Radiculopathy P rocedures MRI LUMBAR WO CONTRAST Encounter Details Care Team Description Date Type Department Carlotta Aguayo MD NO ADDRESS ON FILE 09/10/2013 [facility] F ort Encounter [facility] [address] [place] [id number] Social History Date Tobacco Use Types Packs/Day Years Used Never Smoker Smokeless Tobacco: Never Used Drinks/Week oz/Week Comments Alcohol Use No Sex Assigned at Date Recorded Not on file documented as of this encounter Medications at Time of Discharge Start Date End Date Medication Sig Dispensed Refills 09/10/2013 02/15/2014 HYDROcodone-acetaminophen Take 1 Tab by [...] 30 Tab 5 tabletIndications: Edema mouth daily. 09/25/2012 11/17/2013 colchicine-probenecid Take 1 Tab by 60 Tab 3 (COLBENEMID) 0.5-500 mg mouth daily. Oral TabIndications: DA (degenerative arthritis), Hyperlipidemia 08/08/2017 lansoprazole (PREVACID) Take 15 mg by [...] Diag nosis MRI LUMBAR WO CONTRAST Routine 09/10/2013 Back pa in 11:29 AM CDT Radiculopathy documented in this encounter Results * MRI LUMBAR WO CONTRAST (09/10/2013 11:29 AM CDT) Specimen Impressions Performed At IMPRESSION: Scoliosis with diffuse facet degenerative changes. INTERFACE SYSTEM Multilevel disc disease as noted. Multi level stenosis as noted. Narrative Performed At MR lumbar spine INTERFACE SYSTEM HISTORY: Back pain Sequences: Sagittal and axial T1, T2, a nd sagittal inversion recovery images are obtained. There is a scoliosis convex to the left . L1-L2: There is no significant disc bul ge, protrusion, extrusion. Is facet hypertrophy. There is no signific ant stenosis. L2-L3 colon there is no significant dis c bulge, protrusion, extrusion. There is facet hypertrophy. This is gre ater on the right than left and on the right this is impressing upon th e thecal sac posteriorly and mildly impressing upon nerve roots. The re is no significant stenosis. L3-L4: There is a disc protrusion centr ally and to the right with minimal impression upon thecal sac. The re is facet hypertrophy and ligamentum flavum hypertrophy. There is moderate stenosis. L4-L5: There is no significant disc bul ge, protrusion, extrusion. There is marked facet hypertrophy. Ther e is moderate to severe stenosis. L5-S1: There is a small disc protrusion centrally without significant impression on thecal sac. Facet hypertr ophy. There is no significant stenosis. Procedure Note [place], [facility] [place]iology Results - 09/10/2013 11:41 AM CDT MR lumbar spine HISTORY: Back pain Sequences: Sagittal and axial T1, T2, and sagittal inversion recovery images are obtained. There is a scoliosis convex to the left. L1-L2: There is no significant disc bulge, protrusion, extrusion. Is facet hypertrophy. There is no significant stenosis. L2-L3 colon there is no significant disc bulge, protrusion, extrusion. There is facet hypertrophy. This is greater on the right than left and on the right this is impressing upon the thecal sac posteriorly and mildly impressing upon nerve roots. There is no significant stenosis. L3-L4: There is a disc protrusion centrally and to the right with minimal impression upon thecal sac. There is facet hypertrophy and ligamentum flavum hypertrophy. There is moderate stenosis. L4-L5: There is no significant disc bulge, protrusion, extrusion. There is marked facet hypertrophy. There is moderate to severe stenosis. L5-S1: There is a small disc protrusion centrally without significant impression on thecal sac. Facet hypertrophy. There is no significant stenosis. IMPRESSION IMPRESSION: Scoliosis with diffuse facet degenerative changes. Multilevel disc disease as noted. Multilevel stenosis as noted. Performing Organization Address City/State/Zipcode Ph one Number INTERFACE SYSTEM INTERFACE SYSTEM Refer to clinic/hospital department documented in this encounter Visit Diagnoses Diagnosis Back pain Backache, unspecified Radiculopathy Neuralgia, neuritis, and radiculitis, u nspecified documented in this encounter
--- OUTSIDE RECORDS SUMMARY | 2019-08-19 16:09 | XMS REPORT | Encounter Summary ---
Author Author [facility] Organization [facility] Address Unknown Phone Unavailable Care Team Providers Care Prepared Foods Supervisor Name Role Phone Carlotta Aguayo MD PCP Unavailable Reason for Visit * Reason Comments Medication Refill Encounter Details Care Team Description Date Type Department Self, Bradly Ayala MD [address] [place] [address] 03/04/2013 Refill [facility] [place] [address] [place] [address] Social History Date Tobacco Use Types Packs/Day Years Used Never Smoker Smokeless Tobacco: Never Used Drinks/Week oz/Week Comments Alcohol Use No Sex Assigned at Date Recorded Not on file documented as of this encounter Plan of Treatment Not on filedocumented as of this encounter Visit Diagnoses Not on filedocumented in this encounter
--- OUTSIDE RECORDS SUMMARY | 2019-08-19 16:09 | XMS REPORT | Encounter Summary ---
Author Author [facility] Organization [facility] Address Unknown Phone Unavailable Care Team Providers Care Principal Archaeologist Name Role Phone Carlotta Aguayo MD PCP Unavailable Reason for Referral * Outpatient Services (Routine) Referred By Contact Referred To Contact Status Reason Specialty Diagnoses / Procedures Carlotta Aguayo MD NO ADDRESS ON FILE Closed Diagnoses Back pain Radiculopathy P rocedures MRI LUMBAR WO CONTRAST Reason for Visit * Reason Comments Follow Up 3 mos Results lab Numbness left foot, feels like it is asleep all the time, left side of body Saturday felt numb Back Pain left side Leg Pain left Medication Refill hydrocodone Encounter Details Care Team Description Date Type Department Carlotta Aguayo MD NO ADDRESS ON FILE Back pain (Primary Dx); Radiculopathy; Gout; Hyperlipidemia; Spinal stenosis of lumbar region; Renal insufficiency 09/10/2013 Office Visit [address] [phone] Social History Date Tobacco Use Types Packs/Day Years Used Never Smoker Smokeless Tobacco: Never Used Drinks/Week oz/Week Comments Alcohol Use No Sex Assigned at Date Recorded Not on file documented as of this encounter Last Filed Vital Signs Reading Time Taken Comments Vital Sign 130/84 09/10/2013 9:56 AM CDT Blood Pressure - - Pulse - - Temperature - - Respiratory Rate - - Oxygen Saturation - - Inhaled Oxygen Concentration 69.9 kg (154 lb) 09/10/2013 9:56 AM CDT Weight 154.9 cm (5' 1") 09/10/2013 9:56 AM CDT Height 29.1 09/10/2013 9:56 AM CDT Body Mass Index documented in this encounter Progress Notes * Goyo Aguayo MD - 09/12/2013 3:49 PM CDT HISTORY OF PRESENT ILLNESS Era Viveros, a 72 y.o. female. HPIhere with increasing low back pain and increasing LLE radicular pain and numb ness, no weakness. Known gout. follow up hyperlipidemia. REVIEW OF SYSTEMS Review of Systems Constitutional: Negative for fever, activity change, appetite change, fatigue an d unexpected weight change. HENT: Negative for congestion and neck stiffness. Respiratory: Negative for shortness of breath. Cardiovascular: Negative for chest pain. Gastrointestinal: Negative for abdominal pain. Genitourinary: Negative for menstrual problem. Musculoskeletal: Positive for back pain and arthralgias. Neurological: Positive for numbness. Negative for weakness. PHYSICAL EXAM BP 130/84 | Ht 5' 1" (1.549 m) | Wt 154 lb (69.854 kg) | BMI 29.11 kg/m2 Physical Exam Nursing note and vitals [...] and oriented to person, place, and time. Absent LLE reflexes Skin: Skin is warm and dry. Lab Results Component Value Date/Time NA 139 09/10/2013 8:37 AM K 3.8 09/10/2013 8:37 AM CL 107 09/10/2013 8:37 AM CO2 24 09/10/2013 8:37 AM CA 9.1 09/10/2013 8:37 AM BUN 23* 09/10/2013 8:37 AM CREAT 1.78* 09/10/2013 8:37 AM GLUCOSE 96 09/10/2013 8:37 AM TOTALPROTEIN 7.7 09/10/2013 8:37 AM ALBUMIN 3.7 09/10/2013 8:37 AM BILITOTAL 0.3 09/10/2013 8:37 AM ALKPHOS 105 09/10/2013 8:37 AM AST 18 09/10/2013 8:37 AM ALT 39 09/10/2013 8:37 AM ANIONGAP 11 09/25/2012 8:45 AM BCRATIO 13.5 03/06/2012 7:50 AM Lab Results Component Value Date/Time URICACID 7.5* 09/10/2013 8:37 AM Lab Results Component Value Date/Time CHOLTOT 243 09/10/2013 8:37 AM HDL 78 09/10/2013 8:37 AM LDLCALC 141* 09/10/2013 8:37 AM LDLDIRECT 122 06/06/2011 8:02 AM TRIGLYCERIDE 119 09/10/2013 8:37 AM MRI lumbar spine-pos for spinal stenosis ASSESSMENT and PLAN: ICD-9-CM ICD-10-CM 1. Back pain 724.5 M54.9 MRI LUMBAR WO CONTRAST dexamethasone (DECADRON) injection 4 mg methylPREDNISolone Acetate (DEPO-MEDROL) injection 80 mg HYDROcodone-acetaminophen (NORCO) 5-325 mg tablet 2. Radiculopathy 729.2 M54.10 MRI LUMBAR WO CONTRAST dexamethasone (DECADRON) injection 4 mg methylPREDNISolone Acetate (DEPO-MEDROL) injection 80 mg 3. Gout 274.9 M10.9 4. Hyperlipidemia 272.4 E78.5 COMPREHENSIVE METABOLIC PANEL LIPID PANEL orthopedic referral documented in this encounter Plan of Treatment Not on filedocumented as of this encounter Results * LIPID PANEL (12/10/2013 8:30 AM CDT) CHOLESTEROL 253 mg/dL [facility] [place] TRIGLYCERIDE 93 mg/dL [facility] INDU HDL 86 mg/dL [facility] IN[facility] LDL CALCULATED 148 (H) <=130 mg/dL [facility] Specimen Blood Narrative Performed At TOTAL CHOLESTEROL mg/dL [facility] Desirable <200 SERVICES - [place] [...] Organization Address City/State/Zipcode Ph one Number [facility] CLIA# [id number] [place] [address] - [place] [facility] [address] [place] [address] LABORATORY SERVICES CLIA# [id number] [place] [address] - [address] * COMPREHENSIVE METABOLIC PANEL (12/10/2013 8:30 AM CDT) [facility] SODIUM 142 134 - 145 mmol/L [facility] [place] POTASSIUM 3.7 3.5 - 5.1 mmol/L [facility] [place] CHLORIDE 107 98 - 107 mmol/L [facility] [place] CO2 23 22 - 31 mmol/L [facility] [place] CALCIUM 9.1 8.5 - 10.1 mg/dL [facility] [place] BUN 18 7 - 20 mg/dL [facility] [place] CREATININE 1.67 (H) 0.51 - 0.95 mg/dL [facility] [place] GLUCOSE 98 70 - 100 mg/dL [facility] [place] TOTAL PROTEIN 7.7 6.4 - 8.2 g/dL [facility] [place] ALBUMIN 3.5 3.4 - 5.0 g/dL [facility] [place] BILIRUBIN TOTAL 0.3 <=1.1 mg/dL [facility] [place] ALKALINE 97 40 - 136 U/L [facility] [place] AST 28 10 - 40 U/L [facility] [place] ALT 49 25 - 70 U/L [facility] [place] GFR 30Comment: The GFR result is mL/min/1.[address] [facility] not clinically significant on LABORATORY patients <18 or >70 years of SERVICES - [place] GFR, 36Comment: The GFR result is mL/min/1.[address] [facility] GUINE[facility] not clinically significant on LABORAT ORY patients <18 or >70 years of SERVICES - [place]. [facility] ANION GAP 12 4 - 20 [facility] - [place] Specimen Blood Performing Organization Address City/State/Zipcode Ph one Number [facility] CLIA# [id number] KRISTA [place]UR[place] [address] [place] [address] [place], [place] [address] [facility] CLIA# [id number] [place] [address] - [facility] INDU [address] [place] [address] * MRI LUMBAR WO CONTRAST (09/10/2013 11:29 [...] is no significant stenosis. Procedure Note Interface, [facility] [place] Radiology Results - 09/10/2013 11:41 [...] Radiculopathy Neuralgia, neuritis, and radiculitis, u nspecified Gout Gout, unspecified Hyperlipidemia Other and unspecified hyperlipidemia Spinal stenosis of lumbar region Spinal stenosis, lumbar region, without neurogenic claudication Renal insufficiency Unspecified disorder of kidney and uret er documented in this encounter Administered Medications Action Date Dose Rate Site Medication Order MAR Action 09/10/2013 10:52 AM CDT 4 mg Left Upp er Outer Quadrant dexamethasone (DECADRON) injection 4 mg Given 4 mg, IM, ONE TIME ONLY, 1 dose, Nathaly 09/10/13 at 1015, Routine 09/10/2013 10:52 AM CDT 80 mg Left Upp er Outer Quadrant methylPREDNISolone Acetate (DEPO-MEDROL) Given injection 80 mg 80 mg, IM, ONE TIME ONLY, 1 dose, Nathaly 09/10/13 at 1015, Routine documented in this encounter
--- OUTSIDE RECORDS SUMMARY | 2019-08-19 16:09 | XMS REPORT | Encounter Summary ---
Author Author [facility] Organization [facility] Address Unknown Phone Unavailable Care Team Providers Care Paint Laboratory Technician Name Role Phone Carlotta Aguayo MD PCP Unavailable Encounter Details Care Team Description Date Type Department Carlotta Aguayo MD NO ADDRESS ON FILE Ftsc, Outpt Lab 09/10/2013 [facility] Outpatient Encounter Laboratory [address] [address] Social History Date Tobacco Use [...] Procedure Name Priority Date/Time Associated Diag nosis URIC ACID Stat 09/10/2013 Gout 8:37 AM CDT LIPID PANEL Stat 09/10/2013 Hyperlipidemia 8:37 AM CDT COMPREHENSIVE METABOLIC Stat 09/10/2013 Edema PANEL 8:37 AM CDT documented in this encounter Results * URIC ACID (09/10/2013 8:37 AM CDT) URIC ACID 7.5 (H) 2.6 - 6.0 mg/dL [facility] Specimen Blood Performing Organization Address City/State/[facility] Ph one Number [facility]ATORY [facility] CLIA# [id number] [place], [place] [address] - [address] LABORATORY [facility] CLIA# [id number] [place] [address] - [address] * LIPID PANEL (09/10/2013 8:37 AM CDT) CHOLESTEROL 243 mg/dL [facility] TRIGLYCERIDE 119 mg/dL [facility] HDL 78 mg/dL [facility] LDL CALCULATED 141 (H) <=130 mg/dL [facility] Specimen Blood Narrative Performed At TOTAL CHOLESTEROL mg/dL [facility] LABORATORY Desirable <200 SERVICES - [facility] Borderline high 200-239 INDU High >=240 TRIGLYCERIDES mg/dL Normal <150 Borderline high 150-199 High 200-499 Very high >=500 HDL CHOLESTEROL mg/dL Low <40 Normal 40-60 Desirable >60 LDL CHOLESTEROL mg/dL Optimal <100 Low risk 100-129 Borderline high 130-159 High 160-189 Very high >=190 Based on AHA/NCEP Guidelines Performing Organization Address City/[facility] Ph one Number [facility] LABORATORY SERVICES CLIA# [id number] KRISTA LAUREN [address] [place] [address] [place] [address] LABORATORY SERVICES CLIA# [id number] [place] [address] - [facility] INDU [address] [place] [address] * COMPREHENSIVE METABOLIC PANEL (09/10/2013 8:37 AM CDT) [facility] SODIUM 139 134 - 145 mmol/L [facility] [place] POTASSIUM 3.8 3.5 - 5.1 mmol/L [facility] [place] CHLORIDE 107 98 - 107 mmol/L [facility] [place] CO2 24 22 - 31 mmol/L [facility] [place] [facility] CALCIUM 9.1 8.5 - 10.1 mg/dL [facility] [place] BUN 23 (H) 7 - 20 mg/dL [facility] [place] CREATININE 1.78 (H) 0.51 - 0.95 mg/dL [facility] [place] GLUCOSE 96 70 - 100 mg/dL [facility] [place] TOTAL PROTEIN 7.7 6.4 - 8.2 g/dL [facility] - [facility] ALBUMIN 3.7 3.4 - 5.0 g/dL [facility] [place] BILIRUBIN TOTAL 0.3 <=1.1 mg/dL [facility] [place] [facility] ALKALINE 105 40 - 136 U/L [facility] [place] AST 18 10 - 40 U/L [facility] - [facility] IN[facility] ALT 39 25 - 70 U/L [facility] [place] GFR 28 mL/min/1.73 sq meter [facility] Comment: LABORATORY The GFR result is not SERVICES - [facility] clinically significant on INDU patients <18 or >70 years of age. GFR, 34 mL/min/1.73 sq meter [facility] LABORATORY SERVICES - [place] Specimen Blood Performing Organization Address City/[facility] Ph one Number [facility] LAB[facility]ATORY SERVICES CLIA# [id number] KRISTA LAUREN [address] [address] LABORATORY SERVICES CLIA# [id number] [place] [address] - [address] documented in this encounter Visit Diagnoses Diagnosis Edema Hyperlipidemia Other and unspecified hyperlipidemia Gout Gout, unspecified documented in this encounter
--- OUTSIDE RECORDS SUMMARY | 2019-08-19 16:10 | XMS REPORT | Encounter Summary ---
Author Author [facility] Organization [facility] Address Unknown Phone Unavailable Care Team Providers Care Chief Unit Forester Name Role Phone Carlotta Aguayo MD PCP Unavailable Reason for Visit * Reason Comments Follow Up 3 mos Results lab Side Pain left Constipation Encounter Details Care Team Description Date Type Department Carlotta Aguayo MD NO ADDRESS ON FILE DA (degenerative arthritis) (Primary Dx) ; Hypertension; Abdominal pain, generalized; Hyperlipidemia; IBS (irritable bowel syndrome) 09/25/2012 Office Visit [address] [address] Social History Date Tobacco Use Types Packs/Day Years Used Never Smoker Smokeless Tobacco: Never Used Drinks/Week oz/Week Comments Alcohol Use No Sex Assigned at Date Recorded Not on file documented as of this encounter Last Filed Vital Signs Reading Time Taken Comments Vital Sign 130/74 09/25/2012 9:45 AM CDT Blood Pressure - - Pulse - - Temperature - - Respiratory Rate - - Oxygen Saturation - - Inhaled Oxygen Concentration 71.2 kg (157 lb) 09/25/2012 9:45 AM CDT Weight 151.1 cm (4' 11.5") 09/25/2012 9:45 AM CDT Height 31.18 09/25/2012 9:45 AM CDT Body Mass Index documented in this encounter Progress Notes * Goyo Aguayo MD - 09/25/2012 10:47 AM CDT HISTORY OF PRESENT ILLNESS Era Viveros, a 71 y.o. female. HPI here with follow up DA and hypertension. Recurrent L abdominal pain with kno wn IBS. follow up hypertension and hyperlipidemia. REVIEW OF SYSTEMS Review of Systems Constitutional: Negative for fever, activity change, appetite change, fatigue an d unexpected weight change. HENT: Negative for congestion and neck stiffness. Respiratory: Negative for shortness of breath. Cardiovascular: Negative for chest pain. Gastrointestinal: Positive for abdominal pain. Genitourinary: Negative for menstrual problem. Musculoskeletal: Negative for arthralgias. Neurological: Negative for weakness. PHYSICAL EXAM BP 130/74 | Ht 4' 11.5" (1.511 m) | Wt 157 lb (71.215 kg) | BMI 31.19 kg/m2 Physical Exam Nursing note and vitals [...] is warm and dry. ASSESSMENT and PLAN: (715.90) DA (degenerative arthritis) - Plan: colchicine-probenecid (COLBENEMID) 0.5-500 mg Oral Tab, dexamethasone (DECADRON) injection 4 mg, methylPREDNISolone Acetate (DEPO-MEDROL) injection 80 mg (401.9) Hypertension - Plan: COMPREHENSIVE METABOLIC PANEL (789.07) Abdominal pain, generalized - Plan: COMPREHENSIVE METABOLIC PANEL (272.4) Hyperlipidemia - Plan: colchicine-probenecid (COLBENEMID) 0.5-500 mg Ora l Tab (564.1) IBS (irritable bowel syndrome) documented in this encounter Plan of Treatment Not on filedocumented as of this encounter Results * COMPREHENSIVE METABOLIC PANEL (12/25/2012 8:36 AM CDT) [facility] SODIUM 143 134 - 145 mmol/L [facility] - [facility] INDU POTASSIUM 4.1 3.5 - 5.1 mmol/L [facility] INDU CHLORIDE 109 (H) 98 - 107 mmol/L [facility] [place] CO2 21 (L) 22 - 31 mmol/L [facility] - [facility] INDU CALCIUM 8.8 8.5 - 10.1 mg/dL [facility] [place] BUN 19 7 - 20 mg/dL [facility] [place] CREATININE 1.72 (H) 0.51 - 0.95 mg/dL [facility] INDU GLUCOSE 100 70 - 100 mg/dL [facility] [place] TOTAL PROTEIN 7.8 6.4 - 8.2 g/dL [facility] - [facility] INDU ALBUMIN 3.6 3.4 - 5.0 g/dL [facility] INDU BILIRUBIN TOTAL 0.3 <=1.1 mg/dL [facility] INDU ALKALINE 96 40 - 136 U/L [facility] PHOSPHATASE [facility] - [place] AST 24 10 - 40 U/L [facility] [place] ALT 44 25 - 70 U/L [facility] INDU GFR 29 (L) >=60 mL/min/1.73 sq [facility] Comment: meter LABORATORY eGFR has not been validated SERVICES - [facility] for use in the elderly (> 70 [place] years of age), women, patients with serious [...] GFR, 35 (L) >=60 mL/min/1.73 sq [facility] Comment: meter LABORATORY eGFR has not been validated SERVICES - [facility] for use in the elderly (> 70 [place] years of age), women, patients with serious [...] Specimen Blood specimen (specimen) Performing Organization Address [place] [place] [facility] CLIA# [id number] KRISTA LAUREN [address] - [address] LABORATORY SERVICES CLIA# [id number] [place] [address] - [address] documented in this encounter Visit Diagnoses Diagnosis DA (degenerative arthritis) Osteoarthrosis, unspecified whether gen eralized or localized, unspecified site Hypertension Unspecified essential hypertension Abdominal pain, generalized Hyperlipidemia Other and unspecified hyperlipidemia IBS (irritable bowel syndrome) Irritable bowel syndrome documented in this encounter Administered Medications Action Date Dose Rate Site Medication Order MAR Action 09/25/2012 10:22 AM CDT 4 mg Left Upp er Outer Quadrant dexamethasone (DECADRON) injection 4 mg Given 4 mg, IM, ONE TIME ONLY, 1 dose, Nathaly 09/25/12 at 1015, Routine 09/25/2012 10:23 AM CDT 80 mg Left Upp er Outer Quadrant methylPREDNISolone Acetate (DEPO-MEDROL) Given injection 80 mg 80 mg, IM, ONE TIME ONLY, 1 dose, Nathaly 09/25/12 at 1015, Routine documented in this encounter
--- OUTSIDE RECORDS SUMMARY | 2019-08-19 16:10 | XMS REPORT | Encounter Summary ---
Author Author [facility] Organization [facility] Address Unknown Phone Unavailable Care Team Providers Care Dining Room Tables Set Up Attendant Name Role Phone Carlotta Aguayo MD PCP Unavailable Reason for Visit * Reason Onset Date Comments Medication Refill 07/15/2012 Encounter Details Care Team Description Date Type Department Carlotta Aguayo MD NO ADDRESS ON FILE 07/15/[address] [phone] Social History Date Tobacco Use Types Packs/Day Years Used Never Smoker Smokeless Tobacco: Never Used Drinks/Week oz/Week Comments Alcohol Use No Sex Assigned at Date Recorded Not on file documented as of this encounter Plan of Treatment Not on filedocumented as of this encounter Visit Diagnoses Not on filedocumented in this encounter
--- OUTSIDE RECORDS SUMMARY | 2019-08-19 16:10 | XMS REPORT | Encounter Summary ---
Author Author [facility] Organization [facility] Address Unknown Phone Unavailable Care Team Providers Care Cash Management Specialist Name Role Phone Carlotta Aguayo MD PCP Unavailable Reason for Visit * Reason Comments Follow Up colonoscopy results Encounter Details Care Team Description Date Type Department Vandana Rosen MD NO ADDRESS ON FILE Status post colonoscopy with polypectomy (Primary Dx) 04/23/2012 Office Visit [address] [phone] Social History Date Tobacco Use Types Packs/Day Years Used Never Smoker Smokeless Tobacco: Never Used Drinks/Week oz/Week Comments Alcohol Use No Sex Assigned at Date Recorded Not on file documented as of this encounter Last Filed Vital Signs Reading Time Taken Comments Vital Sign 114/64 04/23/2012 2:35 PM [employer] Blood Pressure - - Pulse 36.6 C (97.8 F) 04/23/2012 2:35 PM [employer] Temperature - - Respiratory Rate - - Oxygen Saturation - - Inhaled Oxygen Concentration 71.7 kg (158 lb) 04/23/2012 2:35 PM [employer] Weight 157.5 cm (5' 2") 04/23/2012 2:35 PM [employer] Height 28.9 04/23/2012 2:35 PM [employer] Body Mass Index documented in this encounter Progress Notes * Vanadna Rosen MD - 04/25/2012 2:08 PM [employer] Subjective: Patient no new complaints. Current Outpatient Prescriptions Medication Sig Dispense Refill raloxifene (EVISTA) 60 mg Oral tablet Take 1 Tab by mouth daily. 30 Tab 5 HYDROcodone-acetaminophen (NORCO) 5-325 mg Oral tablet Take 1 Tab by mouth e very 4 hours as needed for Pain, Moderate. 20 Tab 1 metoprolol tartrate (LOPRESSOR) 25 mg Oral tablet Take 1 Tab by mouth 2 time s daily. 60 Tab 5 NIFEdipine SR 24 hour (PROCARDIA XL) 30 mg Oral tablet Take 1 Tab by mouth 2 times daily. 60 Tab 5 colchicine-probenecid (COLBENEMID) 0.5-500 mg Oral Tab Take 1 Tab by mouth d aily. 30 Tab 3 lansoprazole (PREVACID) 15 mg Oral CpDR Take 15 mg by mouth. Qod dicyclomine (BENTYL) 20 mg Oral tablet Take 1 Tab by mouth 4 times daily bef ore meals and at bedtime. 120 Tab 5 aspirin (BABY ASPIRIN) 81 mg Oral Chew Take 81 mg by mouth. Qod OMEGA-3 FATTY ACIDS (FISH OIL PO) Take 3 Tabs by mouth daily. Objective: BP 114/64 | Temp 97.8 F (36.6 C) | Ht 5' 2" (1.575 m) | Wt 158 lb (71.668 kg ) | BMI 28.90 kg/m2 General appearance: alert, in no distress Abdomen: Soft, non-tender. Bowel sounds normal. No masses, no organomegaly. Results for orders placed during the hospital encounter of 04/18/12 (from the [facility] 336 hour(s)) PATHOLOGY Collection Time 04/18/12 3:30 PM Component Value Range SURGICAL PATHOLOGY Value: Name: ERA GIBSON : 40 Location: [facility] Sex: F Unit#: [id number] Room/Bed: [facility] PRE -6 Ordering Physician: Vandana Rosen M.D. RECD: 04/18/12-1199 PROCEDURE DATE: 04/18/12-[address]: Vandana Rosen M.D. [facility]: ICD CODES: 569.9 PROCEDURES: [id number] LOCATION: [facility] MATERIAL SUBMITTED A) Polyp at 20 centimeters. B) Polyp at 60 centimeters. CLINICAL DIAGNOSIS: Family history of colon cancer. History of colon polyps . Procedure: Colonoscopy with biopsies. Technical component performed at [facility], [address] [place] [address]. GROSS DESCRIPTION A) The specimen consists of two 0.2 to 0.4 cm thin phillips soft tissue fragments . Entirely submitted. B) The specimen consists of two 0.2 to 0.4 cm phillips soft tissue fragments. En tirely submitted. Dictated by:Med Su MD TD:04/21/12 0843 [id number] MICROSCOPIC DESCRIPTION A) Microscopic examination shows fragments of colonic mucosa. There is some absorbent pad artifact as well as tangential sectioning. Some crypts demonstrate serrated luminal borders with decreased numbers of goblet cells. Adenomatous epithelium is no t identified. B) Microscopic examination shows fragments of colonic mucosa. Some absorben t pad artifact is present. One fragment demonstrates some adenomatous epithelium with tubul ar architecture. A submucosal lymphoid nodule is also present. Malignancy is n ot identified. Dictated by:Med Su MD TD:04/21/121522 FSMDRLRG FINAL DIAGNOSIS A) Colon, polyp at 20 cm, biopsy: Hyperplastic polyp. B) Colon, polyp at 60 cm, biopsy: Tubular adenoma. Dictated by: Med Su MD TD:04/21/12 1523 [id number] CONTINUED ON NEXT PAGE Specimen # [id number] ERA GIBSON (Continu ed) Signed (electronic signature) Med Su M.D. [id number] END OF REPORT Assessment: Status post colonoscopy with polypectomy, with very small adenomatous polyp jame dJeremie No complication. Plan: Repeat colonoscopy in 5 years. [employer]ARM[employer] documented in this encounter Plan of Treatment Not on filedocumented as of this encounter Visit Diagnoses Diagnosis Status post colonoscopy with polypectom y Other postprocedural status documented in this encounter
--- OUTSIDE RECORDS SUMMARY | 2019-08-19 16:10 | XMS REPORT | Encounter Summary ---
Author Author [facility] Organization [facility] Address Unknown Phone Unavailable Care Team Providers Care Wire Fence Erector Name Role Phone Carlotta Aguayo MD PCP Unavailable Reason for Visit * Reason Onset Date Comments Medication Refill 08/04/2012 Encounter Details Care Team Description Date Type Department Carlotta Aguayo MD NO ADDRESS ON FILE 08/04/[address] [phone] Social History Date Tobacco Use Types Packs/Day Years Used Never Smoker Smokeless Tobacco: Never Used Drinks/Week oz/Week Comments Alcohol Use No Sex Assigned at Date Recorded Not on file documented as of this encounter Plan of Treatment Not on filedocumented as of this encounter Visit Diagnoses Not on filedocumented in this encounter
--- OUTSIDE RECORDS SUMMARY | 2019-08-19 16:10 | XMS REPORT | Encounter Summary ---
Author Author [facility] Organization [facility] Address Unknown Phone Unavailable Care Team Providers Care Syrup Mixer Helper Name Role Phone Carlotta Aguayo MD PCP Unavailable Reason for Visit * Reason Onset Date Comments Medication Refill 09/01/2012 Encounter Details Care Team Description Date Type Department Carlotta Aguayo MD NO ADDRESS ON FILE Menopausal disorder (Primary Dx) 09/01/[address] [phone] Social History Date Tobacco Use Types Packs/Day Years Used Never Smoker Smokeless Tobacco: Never Used Drinks/Week oz/Week Comments Alcohol Use No Sex Assigned at Date Recorded Not on file documented as of this encounter Plan of Treatment Not on filedocumented as of this encounter Visit Diagnoses Diagnosis Menopausal disorder Unspecified menopausal and postmenopaus al disorder documented in this encounter
--- OUTSIDE RECORDS SUMMARY | 2019-08-19 16:10 | XMS REPORT | Encounter Summary ---
Author Author [facility] Organization [facility] Address Unknown Phone Unavailable Care Team Providers Care Pull Over Machine Operator Name Role Phone Carlotta Aguayo MD PCP Unavailable Reason for Visit * Reason Onset Date Comments Medication Refill 08/18/2012 Encounter Details Care Team Description Date Type Department Carlotta Aguayo MD NO ADDRESS ON FILE Hypertension (Primary Dx) 08/18/2012 Refill [facility] [address] [phone] Social History Date Tobacco [...]
--- OUTSIDE RECORDS SUMMARY | 2019-08-19 16:10 | XMS REPORT | Encounter Summary ---
Author Author [facility] Organization [facility] Address Unknown Phone Unavailable Care Team Providers Care Rubber Compounder Formulator Name Role Phone Carlotta Aguayo MD PCP Unavailable Encounter Details Care Team Description Date Type Department Carlotta Aguayo MD NO ADDRESS ON FILE [facility], Lab Schedule 06/05/2012 Hospital [facility] Encounter Laboratory Services [address] [phone] Social History Date Tobacco Use Types Packs/Day Years Used Never Smoker Smokeless Tobacco: Never Used Drinks/Week oz/Week Comments Alcohol Use No Sex Assigned at Date Recorded Not on file documented as of this encounter Medications at Time of Discharge Start Date End Date Medication Sig Dispensed Refills 03/03/2012 09/01/2012 raloxifene (EVISTA) 60 mg Take 1 Tab by 30 Tab 5 Oral tabletIndications: mouth daily. Menopausal disorder 02/20/2012 09/03/2012 HYDROcodone-acetaminophen Take 1 Tab by 20 Tab 1 (NORCO) 5-325 mg Oral mouth every 4 tabletIndications: Knee hours as pain needed for Pain, Moderate. 02/11/2012 08/18/2012 metoprolol tartrate Take 1 Tab by 60 Tab 5 (LOPRESSOR) 25 mg Oral mouth 2 times tabletIndications: daily. Hypertension 02/04/2012 08/04/2012 NIFEdipine SR 24 hour Take 1 Tab by 60 Tab 5 (PROCARDIA XL) 30 mg Oral mouth 2 times tablet daily. 01/30/2012 09/25/2012 colchicine-probenecid Take 1 Tab by 30 Tab 3 (COLBENEMID) 0.5-500 mg mouth daily. Oral TabIndications: DA (degenerative arthritis), Hyperlipidemia 08/08/2017 lansoprazole (PREVACID) Take 15 mg by 0 15 mg Oral mouth 1 time CpDRIndications: DA daily as (degenerative arthritis), needed . Hyperlipidemia 07/17/2011 07/15/2012 dicyclomine (BENTYL) 20 Take 1 Tab by 120 Tab 5 mg Oral tablet mouth 4 times daily before meals and at bedtime. 08/08/2017 aspirin (BABY ASPIRIN) 81 Take 81 mg by 0 mg Oral Chew mouth every other day . documented as of this encounter Plan of Treatment Not on filedocumented as of this encounter Procedures Comments Procedure Name Priority Date/Time Associated Diag nosis LIPID PANEL Stat 06/05/2012 Hyperlipidemia 7:37 AM ORACLE ETL DEVELOPER COMPREHENSIVE METABOLIC Stat 06/05/2012 Hyperl ipidemia PANEL 7:37 AM ORACLE ETL DEVELOPER Need for prophylact ic vaccination and inoculation against influenza documented in this encounter Results * LIPID PANEL (06/05/2012 7:37 AM ORACLE ETL DEVELOPER) [facility] CHOLESTEROL 245 (H) 140 - 200 mg/dl [facility] LABORATORY [facility] [place] TRIGLYCERIDE 105 0 - 199 mg/dl JES Comment: LABORATORY REFERENCE RANGE - [facility] INDU NORMAL LESS THAN 150 mg/dl BORDERLINE HIGH 150 - 199 mg/dl HIGH 200 - 499 mg/dl VERY HIGH GREATER THAN OR = 500 mg/dl HDL 78 29 - 89 mg/dl [facility] LABORATORY [facility] [place] LDL CALCULATED 146 (H) <130 mg/dl ROBERTO Comment: LABORATORY SERVICES - [facility] INDU RISK CATEGORY LDL GOAL High risk: <100 mg/dl CHD or CHD risk equivalents (optional goal: <70 mg/dl) (10-year risk > 20%) Moderately high risk <130 mg/dl 2+ risk factors (10-year risk 10% to 20%) Moderate risk: <130 mg/dl 2+ risk factors (10-year risk < 10%) Lower risk: <160 mg/dl 0-1 risk factor ROBERTO-KRISTA PORRAS ACCT#[id number], ,,,, Specimen Blood specimen (specimen) Performing Organization Address [facility] [place]/State/[facility] Ph one Number [facility]ORATORY SERVICES CLIA# [id number] [place] [address] - [place] [address] [place] [address] LABORATORY SERVICES CLIA# [id number] [place] [address] - [address] * COMPREHENSIVE METABOLIC PANEL (06/05/2012 7:37 AM ORACLE ETL DEVELOPER) [facility] GLUCOSE 96 70 - 100 mg/dl [facility] LABORATORY [facility] [place] BUN 20.0 7 - 20 mg/dl [facility] LABORATORY [facility] [place] CREATININE 1.67 (H) 0.51 - 0.95 mg/dl [facility] [place] GFR 32 >60 ml/min [facility] [place] SODIUM 139 134 - 145 mmol/L [facility] LABORATORY SERVICES - [place] POTASSIUM 4.2 3.3 - 4.8 mmol/L [facility] LABORATORY SERVICES - [facility] INDU CHLORIDE 104 98 - 107 mmol/L [facility] LABORATORY SERVICES - [place] CO2 23.4 22 - 31 mmol/L [facility] LABORATORY SERVICES - [place] ANION GAP 12 7 - 16 [facility]ORATORY SERVICES - [place] CALCIUM 9.2 8.5 - 10.1 mg/dl [facility] LABORATORY SERVICES - [place] ALBUMIN 4.0 3.4 - 5.0 g/dl [facility] LABORATORY SERVICES - [facility] INDU TOTAL PROTEIN 8.5 (H) 6.4 - 8.2 g/dl [facility] LABORATORY SERVICES - [facility] INDU BILIRUBIN TOTAL 0.3 <1.1 mg/dl [facility] LABORATORY SERVICES - [place] ALKALINE 123 50 - 136 IU/L [facility] PHOSPHATASE LABORATORY SERVICES - [place] AST 22 10 - 40 IU/L [facility] LABORATORY SERVICES - [place] ALT 41Comment: ROBERTOKRISTA PORRAS 25 - 70 IU/L M [facility] ACCT#[id number], ,,,, LABORATORY SERVICES - [place] Specimen Blood specimen (specimen) Performing Organization Address City[facility]State[facility] Number [facility] LABORATORY SERVICES CLIA# [id number] [place] [address] - [place] [address] [place] [address] LABORATORY SERVICES CLIA# [id number] [place] [address] - [place] [address] [place] [address] documented in this encounter Visit Diagnoses Diagnosis Hyperlipidemia Other and unspecified hyperlipidemia Need for prophylactic vaccination and i noculation against influenza documented in this encounter
--- OUTSIDE RECORDS SUMMARY | 2019-08-19 16:10 | XMS REPORT | Encounter Summary ---
Author Author [facility] Organization [facility] Address Unknown Phone Unavailable Care Team Providers Care Firebrick Layer Helper Name Role Phone Carlotta Aguayo MD PCP Unavailable Reason for Visit * Reason Onset Date Comments Medication Refill 09/03/2012 Encounter Details Care Team Description Date Type Department Carlotta Aguayo MD NO ADDRESS ON FILE Knee pain (Primary Dx) 09/03/[address] [phone] Social History Date Tobacco Use Types Packs/Day Years Used Never Smoker Smokeless Tobacco: Never Used Drinks/Week oz/Week Comments Alcohol Use No Sex Assigned at Date Recorded Not on file documented as of this encounter Plan of Treatment Not on filedocumented as of this encounter Visit Diagnoses Diagnosis Knee pain Pain in joint, lower leg documented in this encounter
--- OUTSIDE RECORDS SUMMARY | 2019-08-19 16:10 | XMS REPORT | Encounter Summary ---
Author Author [facility] Organization [facility] Address Unknown Phone Unavailable Care Team Providers Care Manager Terminal Name Role Phone Carlotta Aguayo MD PCP Unavailable Encounter Details Care Team Description Date Type Department Carlotta Aguayo MD NO ADDRESS ON FILE [facility], Lab Schedule 09/25/2012 Hospital [facility] General Encounter Laboratory Services [address] [address] Social History Date Tobacco [...] Date/Time Associated Diag nosis LIPID PANEL Stat 09/25/2012 Hyperlipidemia 8:45 AM CDT COMPREHENSIVE METABOLIC Stat 09/25/2012 Hypert ension PANEL 8:45 AM CDT Hyperlipidemia documented in this encounter Results * COMPREHENSIVE METABOLIC PANEL (09/25/2012 8:45 AM CDT) GLUCOSE 93 70 - 100 mg/dl [facility] BUN 26.0 (H) 7 - 20 mg/dl [facility] CREATININE 1.58 (H) 0.51 - 0.95 mg/dl [facility] [place] [facility] GFR 34 >60 ml/min [facility] SODIUM 138 134 - 145 mmol/L [facility] [place] POTASSIUM 4.2Comment: SPECIMEN 3.3 - 4.8 mmol/L [facility] HEMOLYZED, RESULT MAY BE LABORATORY INCREASED BY AT LEAST 10%. [facility] - [place] CHLORIDE 105 98 - 107 mmol/L [facility] CO2 21.7 (L) 22 - 31 mmol/L [facility] ANION GAP 11 7 - 16 [facility] CALCIUM 8.6 8.5 - 10.1 mg/dl [facility] ALBUMIN 3.6 3.4 - 5.0 g/dl [facility] TOTAL PROTEIN 7.7 6.4 - 8.2 g/dl [facility] BILIRUBIN TOTAL 0.3 <1.1 mg/dl [facility] [place] ALKALINE 89 50 - 136 IU/L [facility] [place] AST 24Comment: SPECIMEN HEMOLYZED, 10 - 40 IU/L JES RESULT MAY BE INCREASED BY AT LABORATORY LEAST 10%. [facility] - [place] ALT 37Comment: ROBERTO-KRISTA PORRAS 25 - 70 IU/L [facility] ACCT#[id number], ,,,, LAB[facility]ATORY [facility] - [place] Specimen Blood specimen (specimen) Performing Organization Address City/State/Zipcode Ph one Number INTERFACE SYSTEM [facility] CLIA# [id number] [place] [address] [facility] [place] [address] * LIPID PANEL (09/25/2012 8:45 AM CDT) CHOLESTEROL 204 (H) 140 - 200 mg/dl [facility] [place] TRIGLYCERIDE 102 0 - 199 mg/dl ROBERTO Comment: LABORATORY REFERENCE RANGE - [facility] [place] NORMAL LESS THAN 150 mg/dl BORDERLINE HIGH 150 - 199 mg/dl HIGH 200 - 499 mg/dl VERY HIGH GREATER THAN OR = 500 mg/dl HDL 69 29 - 89 mg/dl [facility] - [place] LDL CALCULATED 115 <130 mg/dl ROBERTO Comment: LABORATORY SERVICES - [facility] INDU RISK CATEGORY LDL GOAL High risk: <100 mg/dl CHD or CHD risk equivalents (optional goal: <70 mg/dl) (10-year risk > 20%) Moderately high risk <130 mg/dl 2+ risk factors (10-year risk 10% to 20%) Moderate risk: <130 mg/dl 2+ risk factors (10-year risk < 10%) Lower risk: <160 mg/dl 0-1 risk factor KRISTA TONG ACCT#[id number], ,,,, Specimen Blood specimen (specimen) Performing Organization Address City/State/[facility] one Number [facility] CLIA# [id number] [place] [address] - [place] [address] [place] [address] BLVD documented in this encounter Visit Diagnoses Diagnosis Hyperlipidemia Other and unspecified hyperlipidemia Hypertension Unspecified essential hypertension documented in this encounter
--- OUTSIDE RECORDS SUMMARY | 2019-08-19 16:10 | XMS REPORT | Encounter Summary ---
Author Author [facility] Organization [facility] Address Unknown Phone Unavailable Care Team Providers Care Marketing Compliance Manager Name Role Phone Carlotta Aguayo MD PCP Unavailable Reason for Visit * Reason Comments Follow Up 3 mos Results lab Foot Pain heel pain, left Leg Pain left leg, requesting a shot Encounter Details Care Team Description Date Type Department Carlotta Aguayo MD NO ADDRESS ON FILE Hypertension (Primary Dx); DA (degenerative arthritis); Hyperlipidemia; Plantar fasciitis 06/05/2012 Office Visit [address] [address] Social History Date Tobacco Use Types Packs/Day Years Used Never Smoker Smokeless Tobacco: Never Used Drinks/Week oz/Week Comments Alcohol Use No Sex Assigned at Date Recorded Not on file documented as of this encounter Last Filed Vital Signs Reading Time Taken Comments Vital Sign 136/84 06/05/2012 8:35 AM APPLICATION INTEGRATION ENGINEER Blood Pressure - - Pulse - - Temperature - - Respiratory Rate - - Oxygen Saturation - - Inhaled Oxygen Concentration 71.7 kg (158 lb) 06/05/2012 8:35 AM APPLICATION INTEGRATION ENGINEER Weight 154.9 cm (5' 1") 06/05/2012 8:35 AM APPLICATION INTEGRATION ENGINEER Height 29.85 06/05/2012 8:35 AM APPLICATION INTEGRATION ENGINEER Body Mass Index documented in this encounter Progress Notes * Goyo Aguayo MD - 06/05/2012 9:23 AM APPLICATION INTEGRATION ENGINEER HISTORY OF PRESENT ILLNESS Era Mathis Viveros, a 71 y.o. female. HPIhere with follow up hypertension and lipids. Underlying degenerative arthriti s. Increasing R heel lateral pain and tender REVIEW OF SYSTEMS Review of Systems Constitutional: Negative for fever, activity change, appetite change, fatigue an d unexpected weight change. HENT: Negative for congestion and neck stiffness. Respiratory: Negative for shortness of breath. Cardiovascular: Negative for chest pain. Gastrointestinal: Negative for abdominal pain. Genitourinary: Negative for menstrual problem. Musculoskeletal: Positive for arthralgias and gait problem. Neurological: Negative for weakness. PHYSICAL EXAM BP 136/84 | Ht 5' 1" (1.549 m) | Wt 158 lb (71.668 kg) | BMI 29.85 kg/m2 Physical Exam Nursing note and vitals [...] range of motion. She exhibits tenderness (R lateral heel at PF insertion). Neurological: She is alert and oriented to person, place, and time. Skin: Skin is warm and dry. Lab Results Component Value Date SODIUM 139 06/05/2012 POTASSIUM 4.2 06/05/2012 CHLORIDE 104 06/05/2012 CO2 23.4 06/05/2012 CALCIUM 9.2 06/05/2012 BUN 20.0 06/05/2012 CREATININE 1.67* 06/05/2012 GLUCOSE 96 06/05/2012 TOTAL PROTEIN 8.5* 06/05/2012 ALBUMIN 4.0 06/05/2012 BILIRUBIN TOTAL 0.3 06/05/2012 ALKALINE PHOSPHATASE 123 06/05/2012 AST 22 06/05/2012 ALT 41 06/05/2012 ANION GAP 12 06/05/2012 BUN/CREAT RATIO 13.5 03/06/2012 Lab Results Component Value Date CHOLESTEROL 245* 06/05/2012 HDL 78 06/05/2012 LDL CALCULATED 146* 06/05/2012 LDL CHOLESTEROL, DIRECT 122 06/06/2011 TRIGLYCERIDE 105 06/05/2012 Past Surgical History Procedure Date Pr ligate fallopian tube Pr colonoscopy,diagnostic 04/29/2009 COLONOSCOPY performed by GAMAL ROSEN at [facility] OR Pr colonoscopy,diagnostic 04/18/2012 COLONOSCOPY performed by Gamal Rosen MD at [facility] OR Past Medical History Diagnosis Date Gout GERD (gastroesophageal reflux disease) Chronic ischemic heart disease, unspecified Status post colonoscopy with polypectomy 04/29/2009 Current outpatient prescriptions:dexamethasone (DECADRON) 4 mg/mL Injection Soln , Inject 1 mL by intramuscular injection one time only for 1 dose., Disp: 1 mL, Rfl: 0; methylPREDNISolone Acetate (DEPO-MEDROL) 80 mg/mL Injection Susp, Injec t 1 mL by intramuscular injection one time only for 1 dose., Disp: 1 mL, Rfl: 0; raloxifene (EVISTA) 60 mg Oral tablet, Take 1 Tab by mouth daily., Disp: 30 Ta b, Rfl: 5 HYDROcodone-acetaminophen (NORCO) 5-325 mg Oral tablet, Take 1 Tab by mouth ever y 4 hours as needed for Pain, Moderate., Disp: 20 Tab, Rfl: 1; metoprolol tartr ate (LOPRESSOR) 25 mg Oral tablet, Take 1 Tab by mouth 2 times daily., Disp: 60 Tab, Rfl: 5; NIFEdipine SR 24 hour (PROCARDIA XL) 30 mg Oral tablet, Take 1 Tab by mouth 2 times daily., Disp: 60 Tab, Rfl: 5 colchicine-probenecid (COLBENEMID) 0.5-500 mg Oral Tab, Take 1 Tab by mouth anthony y., Disp: 30 Tab, Rfl: 3; lansoprazole (PREVACID) 15 mg Oral CpDR, Take 15 mg b y mouth. Qod , Disp: , Rfl: ; dicyclomine (BENTYL) 20 mg Oral tablet, Take 1 Ta b by mouth 4 times daily before meals and at bedtime., Disp: 120 Tab, Rfl: 5; a spirin (BABY ASPIRIN) 81 mg Oral Chew, Take 81 mg by mouth. Qod , Disp: , Rfl: OMEGA-3 FATTY ACIDS (FISH OIL PO), Take 3 Tabs by mouth daily., Disp: , Rfl: ASSESSMENT and PLAN: 1. Hypertension (401.9) COMPREHENSIVE METABOLIC PANEL 2. DA (degenerative arthritis) (715.90) 3. Hyperlipidemia (272.4) COMPREHENSIVE METABOLIC PANEL, LIPID PANEL 4. Plantar fasciitis (798.71) dexamethasone (DECADRON) 4 mg/mL Injection Soln, DEXAMETHASONE SODIUM PHOSPHATE 4 MG/ML INJECTION, methylPREDNISolone Acetate (DE PO-MEDROL) 80 mg/mL Injection Susp, METHYLPREDNISOLONE ACETATE 80 MG/ML INJECTIO N ICATION INTEGRATION ENGINEER documented in this encounter Plan of Treatment Not on filedocumented as of this encounter Results * LIPID PANEL (09/25/2012 8:45 AM CDT) [facility] CHOLESTEROL 204 (H) 140 - 200 mg/dl [facility] [place] TRIGLYCERIDE 102 0 - 199 mg/dl JES Comment: LABORATORY REFERENCE RANGE - [facility] [place] NORMAL LESS THAN 150 mg/dl BORDERLINE HIGH 150 - 199 mg/dl HIGH 200 - 499 mg/dl VERY HIGH GREATER THAN OR = 500 mg/dl HDL 69 29 - 89 mg/dl [facility] LABORATORY [facility] [place] [facility] LDL CALCULATED 115 <130 mg/dl JES Comment: LABORATORY SERVICES - [place] IN[facility] RISK CATEGORY LDL GOAL High risk: <100 mg/dl CHD or CHD risk equivalents (optional goal: <70 mg/dl) (10-year risk > 20%) Moderately high risk <130 mg/dl 2+ risk factors (10-year risk 10% to 20%) Moderate risk: <130 mg/dl 2+ risk factors (10-year risk < 10%) Lower risk: <160 mg/dl 0-1 risk factor ROEBRTO-KRISTA PORRAS ACCT#[id number], ,,,, Specimen Blood specimen (specimen) Performing Organization Address City/State/[facility] Ph one Number INTERFACE SYSTEM [facility] CLIA# [id number] [place] [address] - [place] [address] [facility] * COMPREHENSIVE METABOLIC PANEL (09/25/2012 8:45 AM CDT) [facility] GLUCOSE 93 70 - 100 mg/dl [facility] [place] [facility] BUN 26.0 (H) 7 - 20 mg/dl [facility] [place] [facility] CREATININE 1.58 (H) 0.51 - 0.95 mg/dl [facility] [place] [facility] GFR 34 >60 ml/min [facility] [place] [facility] SODIUM 138 134 - 145 mmol/L [facility] [place] [facility] POTASSIUM 4.2Comment: SPECIMEN 3.3 - 4.8 mmol/L [facility] HEMOLYZED, RESULT MAY BE LABORATORY INCREASED BY [...] PROTEIN 7.7 6.4 - 8.2 g/dl [facility] - [place] BILIRUBIN TOTAL 0.3 <1.1 mg/dl [facility] - [place] ALKALINE 89 50 - 136 IU/L [facility] PHOSPHATASE LABORATORY SERVICES - [place] AST 24Comment: SPECIMEN HEMOLYZED, 10 - 40 IU/L [facility] RESULT MAY BE INCREASED BY AT LABORATORY LEAST 10%. SERVICES - [place] ALT 37Comment: [facility] 25 - 70 IU/L [facility] ACCT#[id number], ,,,, LABORATORY SERVICES - [place] Specimen Blood specimen (specimen) Performing Organization Address City/State/Zipcode Ph one Number INTERFACE SYSTEM [facility] CLIA# [id number] [place] [address] - [place] [address] documented in this encounter Visit Diagnoses Diagnosis Hypertension Unspecified essential hypertension DA (degenerative arthritis) Osteoarthrosis, unspecified whether gen eralized or localized, unspecified site Hyperlipidemia Other and unspecified hyperlipidemia Plantar fasciitis Plantar fascial fibromatosis documented in this encounter
--- OUTSIDE RECORDS SUMMARY | 2019-08-19 16:10 | XMS REPORT | Encounter Summary ---
Author Author [facility] Organization [facility] Address Unknown Phone Unavailable Care Team Providers Care Financial Controller Name Role Phone Carlotta Aguayo MD PCP Unavailable Reason for Visit * Auth/Cert Referred By Contact Referred To Contact Status Reason Specialty Diagnoses / Procedures [facility] Operating Room [address] [place] [address] Closed Procedures COLONOSCOPY Encounter Details Care Team Description Date Type Department Vandana Rosen MD NO ADDRESS ON FILE 04/18/2012 Hospital [facility] ort Encounter Lenny Pre Post Op [address] [place] [address] Social History Date Tobacco Use Types Packs/Day Years Used Never Smoker Smokeless Tobacco: Never Used Drinks/Week oz/Week Comments Alcohol Use No Sex Assigned at Date Recorded Not on file documented as of this encounter Last Filed Vital Signs Reading Time Taken Comments Vital Sign 100/60 04/18/2012 10:43 AM CAPTAIN/AIRLINE PILOT Blood Pressure 76 04/18/2012 10:43 AM CAPTAIN/AIRLINE PILOT Pulse 36.2 C (97.2 F) 04/18/2012 10:43 AM CAPTAIN/AIRLINE PILOT Temperature 18 04/18/2012 10:43 AM CAPTAIN/AIRLINE PILOT Respiratory Rate - - Oxygen Saturation - - Inhaled Oxygen Concentration 71.7 kg (158 lb) 04/18/2012 9:12 AM CAPTAIN/AIRLINE PILOT Weight 157.5 cm (5' 2") 04/18/2012 9:12 AM CAPTAIN/AIRLINE PILOT Height 28.9 04/18/2012 9:12 AM CAPTAIN/AIRLINE PILOT Body Mass Index documented in this encounter Discharge Instructions * Instructions* Mireya Gold RN - 04/18/2012 1. Call office, , for any questions. Office hours are 8 am to 5 pm Saturday to , and 8 am to 12 noon on Saturday. 2. Follow up with Dr. Rosen in 5 days. 3. Avoid Aspirin or Aspirin-containing products for at least 3 days. 4. May take Tylenol 500 mg to 1000 mg every 6 hours as needed for mild pain. FOLLOW-UP Follow up with Dr. Rosen On Apr 23 at 2:45 PM. ACTIVITY It is essential [...] if you experie nce the above symptoms. Colonoscopy Care After Surgery Please read the instructions outlined below and refer to this sheet in the next few weeks. These discharge instructions provide you with general information on caring for yourself after you leave the hospital. Your doctor may also give you specific instructions. While your treatment has been planned according to the mo st current medical practices available, unavoidable complications occasionally o ccur. If you have any problems or questions after discharge, please call your do ctor. ACTIVITY You may resume your regular activity, but move at a slower pace for the next 24 hours. Take frequent rest periods for the next 24 hours. Walking will help get rid of the air and reduce the bloated feeling in your a bdomen (belly). No driving for 24 hours (because of the anesthesia (medicine) used during the test). You may shower. Do not sign any important legal documents or operate any machinery for 24 gretchen rs (because of the anesthesia used during the test). NUTRITION Drink plenty of fluids. You may resume your normal diet as instructed by your doctor. Begin with a light meal and progress to your normal diet. Heavy or fried food s are harder to digest and may make you feel nauseated (sick to your stomach). Avoid alcoholic beverages for 24 hours or as instructed. MEDICATIONS You may resume your normal medications unless your doctor tells you otherwise . WHAT YOU CAN EXPECT TODAY Some feelings of bloating in the abdomen. Passage of more gas than usual. Spotting of blood in your stool or on the toilet paper. IF YOU HAD POLYPS REMOVED DURING THE COLONOSCOPY: No aspirin products for 7 days or as instructed. No alcohol for 7 days or as instructed. Eat a soft diet for the next 24 hours. FOLLOW-UP Your doctor will discuss the results of your test with you. CALL YOUR caregiver immediately if: There is more than a spotting of blood in your stool. There is abdominal distention (your abdomen is swollen). There is vomiting. You have a temperature over 101 F (38.3 C). There is abdominal pain or discomfort that is severe or gets worse throughout the day. ExitCare Patient Information 2006 [employer] [facility] [employer]. * Attachments The following attachments cannot be sent through Care Everywhere.* COLON POLYPS: AFTER YOUR VISIT (BOLIVIAN) * HEMORRHOIDS: AFTER YOUR VISIT (BOLIVIAN) * SEDATION FOR A MEDICAL PROCEDURE: AFTER YOUR VISIT (BOLIVIAN) documented in this encounter Medications at Time [...] as of this encounter H&P Notes * Scanning, Kasey - 04/21/2012 1:21 PM CAPTAIN/AIRLINE PILOT Electronically signed by Interface, [facility] Transcriptions Incoming at 3 1:21 PM CAPTAIN/AIRLINE PILOT * Vandana Rosen MD - 04/18/2012 9:46 AM CAPTAIN/AIRLINE PILOT Patient examined; history and physical reviewed and no changes noted. Will proc eed with colonoscopy, possible biopsy. AIN/AIRLINE PILOT documented in this encounter OR Notes * OR Anesthesia - Scanning, Donk - 04/21/2012 1:27 PM CAPTAIN/AIRLINE PILOT Electronically signed by Interface, [facility] [employer] Transcriptions Incoming at 3 1:27 PM CAPTAIN/AIRLINE PILOT * Operative Report - Vandana Rosen MD - 04/18/2012 10:16 AM CAPTAIN/AIRLINE PILOT Colonoscopy Procedure Note Procedure: Colonoscopy --screening Pre-operative Diagnosis: previous adenomatous polyp of the colon, high risk for colon cancer Post-operative Diagnosis: polyps at 60 cm and 20 cm, internal hemorrhoid Indications: family history of colon cancer, previous adenomatous polyp, screeni ng for colon cancer Sedation: Demerol 50 mg IV, Versed 7 mg IV Pre-Procedure Physical: Current Facility-Administered Medications Medication Dose Route Frequency Provider Last Rate Last Dose sodium chloride 0.9 % flush injection 3 mL 3 mL IV See Admin Notes Daily Rosen MD 3 mL at 04/18/12 0928 Allergies: Allopurinol; Indomethacin; and Other drug BP 122/86 | Pulse 80 | Temp(Src) 98 F (36.7 C) (Temporal) | Resp 20 | Ht 5' 2" (1.575 m) | Wt 158 lb (71.668 kg) | BMI 28.90 kg/m2 Airway: normal Heart: normal S1 and S2 [...] cecum, which was identified by the ileocecal valve. The quality of the colonic preparation was satisfactory. A careful inspection was made as the colonoscope was withdrawn, including a ret roflexed view of the rectum; findings and interventions are described below. Ap propriate photodocumentation was obtained. Findings: -hemorrhoids (internal), Small in size -polyp(s) - #1, 3 mm in size, located in 20 cm from anal verge, removed by cold biopsy and sent for pathology, - #2, 3 mm in size, located in 60 cm from anal ve rge, removed by cold biopsy and sent for pathology Specimens: biopsies of polyps at 20 cm and 60 cm from anal verge Complications: None; patient tolerated the procedure well. Impression: -See post-procedure diagnoses. Recommendations: -Await pathology., -Follow up with me. AIN/AIRLINE PILOT * Bernadette-OP - Liborio Atkinson - 04/18/2012 10:15 AM CAPTAIN/AIRLINE PILOT See Moderate Sedation Record for Demerol 50 mg & Versed [address] Rosen, and see for notes & vital signs. AIN/AIRLINE PILOT documented in this encounter Miscellaneous Notes * Scanned Form - Scanning, Aok - 04/21/2012 1:22 PM CAPTAIN/AIRLINE PILOT Electronically signed by Srikanth, Tyrone [employer] Transcriptions Incoming at 3 1:22 PM CAPTAIN/AIRLINE PILOT documented in this encounter Plan of Treatment Not on filedocumented as of this encounter Procedures Comments Procedure Name Priority Date/Time Associated Diag nosis PATHOLOGY Routine 04/18/2012 3:30 PM CAPTAIN/AIRLINE PILOT COLONOSCOPY 04/18/2012 9:21 AM CAPTAIN/AIRLINE PILOT documented in this encounter Results * PATHOLOGY (04/18/2012 3:30 PM CAPTAIN/AIRLINE PILOT) SURGICAL Name: ERA GIBSON URENA ABISAIREBECCA Reynaldo PATHOLOGY : PATHOLOGY 40 Location: [facility] Sex: F Unit#: [id number] Room/Bed: [facility] PRE-6 Ordering Physician: Vandana Rosen M.D. RECD: 04/18/12 PROCEDURE DATE: 04/18/12-[address] [facility] [address]: Vandana Rosen M.D. [facility] DR: ICD CODES: 569.9 PROCEDURES: [id number] LOCATION: [facility] MATERIAL SUBMITTED A) Polyp at 20 centimeters. B) Polyp at 60 centimeters. CLINICAL DIAGNOSIS: Family history of colon cancer. History of colon polyps. Procedure: Colonoscopy with biopsies. Technical component performed at [facility], [address], [place], [place]. GROSS DESCRIPTION A) The specimen consists of two 0.2 to 0.4 cm thin phillips soft tissue fragments. Entirely submitted. B) The specimen consists of two 0.2 to 0.4 cm phillips soft tissue fragments. Entirely submitted. Dictated by:Med Su MD TD:04/21/12 0843 [id number] MICROSCOPIC DESCRIPTION A) Microscopic examination shows fragments of colonic mucosa. There is some absorbent pad artifact as well as tangential sectioning. Some crypts demonstrate serrated luminal borders with decreased numbers of goblet cells. Adenomatous epithelium is not identified. B) Microscopic examination shows fragments of colonic mucosa. Some absorbent pad artifact is present. One fragment demonstrates some adenomatous epithelium with tubular architecture. A submucosal lymphoid nodule is also present. Malignancy is not identified. Dictated by:Med Su MD TD:04/21/12 1523 FSMDRLRG FINAL DIAGNOSIS A) Colon, polyp at 20 cm, biopsy: Hyperplastic polyp. B) Colon, polyp at 60 cm, biopsy: Tubular adenoma. Dictated by: Med Su MD TD:04/21/12 152 [id number] CONTINUED ON NEXT PAGE Specimen # [id number] ERA GIBSON URENA (Continued) Signed (electronic signature) Med Su M.D. 04/21/12 5449 END OF REPORT Comment: , ,,,, Specimen Specimen of unknown material (specimen) Performing Organization Address City/State/Zipcode Ph one Number [facility] CLIA# [id number] [place], [place] [address] [address] PATHOLOGY CLIA# [id number] [place], [place] [address] [facility] [place] [address] documented in this encounter Visit Diagnoses Diagnosis Status post colonoscopy with polypectom y Other postprocedural status documented in this encounter Administered Medications Action Date Dose Rate Site Medication Order MAR Action 04/18/2012 9:28 AM CAPTAIN/AIRLINE PILOT 3 mL sodium chloride 0.9 % flush injection 3 Given mL 3 mL, IV, SEE ADMIN INSTRUCTIONS, Starting Sat04/18/12 at 0908, Until Sat04/18/12 at 1437, Routine, Pre-op documented in this encounter
--- OUTSIDE RECORDS SUMMARY | 2019-08-19 16:10 | XMS REPORT | Encounter Summary ---
Author Author [facility] Organization [facility] Address Unknown Phone Unavailable Care Team Providers Care Director Call Center Sales Name Role Phone Carlotta Aguayo MD PCP Unavailable Reason for Visit * Reason Comments Colonoscopy sched. 3 yr. repeat colonos copy Encounter Details Care Team Description Date Type Department Gamal Mcknight MD NO ADDRESS ON FILE Tubular adenoma of colon (Primary Dx) 04/09/2012 Office Visit [address] [address] Social History Date Tobacco Use Types Packs/Day Years Used Never Smoker Smokeless Tobacco: Never Used Drinks/Week oz/Week Comments Alcohol Use No Sex Assigned at Date Recorded Not on file documented as of this encounter Last Filed Vital Signs Reading Time Taken Comments Vital Sign 120/80 04/09/2012 2:56 PM MONOTYPER Blood Pressure 60 04/09/2012 2:56 PM MONOTYPER Pulse 36.1 C (96.9 F) 04/09/2012 2:56 PM MONOTYPER Temperature - - Respiratory Rate - - Oxygen Saturation - - Inhaled Oxygen Concentration 71.7 kg (158 lb) 04/09/2012 2:56 PM MONOTYPER Weight 157.5 cm (5' 2") 04/09/2012 2:56 PM MONOTYPER Height 28.9 04/09/2012 2:56 PM MONOTYPER Body Mass Index documented in this encounter Progress Notes * Gamal Mcknight MD - 04/10/2012 2:33 PM MONOTYPER Subjective: Era Viveros is an 71 y.o. female who presents for repeat colonoscopy. The patient's last colonoscopy was in 2009 where tubular adenoma was found. [facility] had colon cancer, patient needs surveillance. Past Medical History Diagnosis Date Gout GERD (gastroesophageal reflux disease) Chronic ischemic heart disease, unspecified Status post colonoscopy with polypectomy 04/29/2009 Past Surgical History Procedure Date Pr ligate fallopian tube Pr colonoscopy,diagnostic 04/29/2009 COLONOSCOPY performed by GAMAL MCKNIGHT at [facility] OR Family History Problem Relation Age of Onset Colon Cancer Father Other Mother aneurysm Hypertension Sister Hypertension Brother Diabetes Brother Other Paternal Grandfather of accident Healthy Son Current Outpatient Prescriptions Medication Sig Dispense Refill polyethylene glycol 3350 (MIRALAX) 17 gram/dose Oral Powd Take 9 scoops by m outh see administration instructions. Dissolve 9 scoops in 32 oz Gatorade, Power niall, or Crystal Light and drink entire amount. Please follow instruction sheet. 153 Gram 0 bisacodyl delayed release (DULCOLAX) 5 mg Oral TbEC Take 4 Tabs by mouth see administration instructions. Take 4 tablets before drinking mixture. Take 2 ta blets at bedtime. 8 Tab 0 promethazine (PHENERGAN) 25 mg Oral tablet Take 1 Tab by mouth see administr ation instructions. Take 1 tablet one hour before drinking mixture. Then july ta ke 1 tablet every 6 hours as needed for nausea. 4 Tab 0 raloxifene (EVISTA) 60 mg Oral tablet Take [...] PO) Take 3 Tabs by mouth daily. Allergies Allergen Reactions Allopurinol Rash Indomethacin Renal Dysfunctions Other Drug (Unclassified Drug) Other (See Comments) Horse serum History Social History Marital Status: Spouse Name: N/A Number of Children: N/A Years of Education: N/A Occupational History Retired Social History Main Topics Smoking status: Never Smoker Smokeless tobacco: Never Used Alcohol Use: No Drug Use: No Sexually Active: Yes -- Male partner(s) Other Topics Concern Not on file Social History Narrative No narrative on file Review of Systems Pertinent items are noted in HPI. Objective: BP 120/80 | Pulse 60 | Temp 96.9 F (36.1 C) | Ht 5' 2" (1.575 m) | Wt 158 l b (71.668 kg) | BMI 28.90 kg/m2 General: alert, in no distress Skin: Normal. Eyes: negative Mouth: MMM no lesions Lymph Nodes: Cervical, supraclavicular, and axillary nodes normal. Lungs: normal respiratory effort Heart: regular rate and rhythm Abdomen: Soft, non-tender. Bowel sounds normal. No masses, no organomegaly. CVA: absent Genitourinary: defer exam Extremities: extremities normal, atraumatic, no cyanosis or edema Neurologic: negative Psychiatric: non focal No results found for this or any previous visit (from the past 336 hour(s)). Assessment: Personal history of adenomatous polyp of colon and family history of colon cance r, patient due for repeat colonoscopy. Plan: 1. Discussed the risk of colonoscopy including bleeding and perforation, and th e risks and reaction to anesthetic medications. The patient understands the risk s, any and all questions were answered to the patient's satisfaction. 2. Colonoscopy on 04/18/2012. TYPER documented in this encounter Plan of Treatment Not on filedocumented as of this encounter Visit Diagnoses Diagnosis Tubular adenoma of colon Benign neoplasm of colon documented in this encounter
--- OUTSIDE RECORDS SUMMARY | 2019-08-19 16:10 | XMS REPORT | Encounter Summary ---
Author Author [facility] Organization [facility] Address Unknown Phone Unavailable Care Team Providers Care Client Care Consultant Name Role Phone Carlotta Aguayo MD PCP Unavailable Reason for Visit * Reason Comments Follow Up 3 mos Results lab Immunization/Injection flu Encounter Details Care Team Description Date Type Department Carlotta Aguayo MD NO ADDRESS ON FILE Hyperlipidemia; DA (degenerative arthritis); Knee pain; Need for prophylactic vaccination and inoculation against influenza 03/06/2012 Office Visit [facility] [address] [address] Social History Date Tobacco Use Types Packs/Day Years Used Never Smoker Smokeless Tobacco: Never Used Drinks/Week oz/Week Comments Alcohol Use No Sex Assigned at Date Recorded Not on file documented as of this encounter Last Filed Vital Signs Reading Time Taken Comments Vital Sign 136/100 03/06/2012 9:20 AM GROUT MACHINE OPERATOR Blood Pressure - - Pulse - - Temperature - - Respiratory Rate - - Oxygen Saturation - - Inhaled Oxygen Concentration 71.7 kg (158 lb) 03/06/2012 9:20 AM GROUT MACHINE OPERATOR Weight 156.2 cm (5' 1.5") 03/06/2012 9:20 AM GROUT MACHINE OPERATOR Height 29.37 03/06/2012 9:20 AM GROUT MACHINE OPERATOR Body Mass Index documented in this encounter Progress Notes * Angelia Nguyễn - 03/06/2012 10:48 AM GROUT MACHINE OPERATOR Addended by: ANGELIA NGUYỄN on: 03/06/2012 10:48 AM Modules accepted: Orders T MACHINE OPERATOR * Goyo Aguayo MD - 03/06/2012 9:30 AM GROUT MACHINE OPERATOR HISTORY OF PRESENT ILLNESS Era Viveros, a 71 y.o. female. HPI here in follow up [...] Neurological: Negative for weakness. PHYSICAL EXAM BP 136/100 | Ht 5' 1.5" (1.562 m) | Wt 158 lb (71.668 kg) | BMI 29.37 kg/m2 Physical Exam [nursing notereviewed. Constitutional: She [...] is warm and dry. ASSESSMENT and PLAN: 1. Hyperlipidemia (272.4) 2. DA (degenerative arthritis) (715.90) 3. Knee pain (719.46) The current medical regimen is effective; continue present plan and medication s. Current outpatient prescriptions:raloxifene (EVISTA) 60 mg Oral tablet, Take 1 T ab by mouth daily., Disp: 30 Tab, Rfl: 5; HYDROcodone-acetaminophen (NORCO) 5-3 25 mg Oral tablet, Take 1 Tab by mouth every 4 hours as needed for Pain, Moderat e., Disp: 20 Tab, Rfl: 1; metoprolol tartrate (LOPRESSOR) 25 mg Oral tablet, Ta ke 1 Tab by mouth 2 times daily., Disp: 60 Tab, Rfl: 5 NIFEdipine SR 24 hour (PROCARDIA XL) 30 mg Oral tablet, Take 1 Tab by mouth 2 ti mes daily., Disp: 60 Tab, Rfl: 5; colchicine-probenecid (COLBENEMID) 0.5-500 mg Oral Tab, Take 1 Tab by mouth daily., Disp: 30 Tab, Rfl: 3; lansoprazole (PREV ACID) 15 mg Oral CpDR, Take 15 mg by mouth. Qod , Disp: , Rfl: ; dicyclomine (B ENTYL) 20 mg Oral tablet, Take 1 Tab by mouth 4 times daily before meals and at bedtime., Disp: 120 Tab, Rfl: 5 aspirin (BABY ASPIRIN) 81 mg Oral Chew, Take 81 mg by mouth. Qod , Disp: , Rfl: ; OMEGA-3 FATTY ACIDS (FISH OIL PO), Take 3 Tabs by mouth daily., Disp: , Rfl: T MACHINE OPERATOR documented in this encounter Plan of Treatment Not on filedocumented as of this encounter Results * LIPID PANEL (06/05/2012 7:37 AM GROUT MACHINE OPERATOR) [facility] CHOLESTEROL 245 (H) 140 - 200 mg/dl [facility] [place] TRIGLYCERIDE 105 0 - 199 mg/dl JES Comment: LABORATORY REFERENCE RANGE - [facility] NORMAL LESS THAN 150 mg/dl BORDERLINE HIGH 150 - 199 mg/dl HIGH 200 - 499 mg/dl VERY HIGH GREATER THAN OR = 500 mg/dl HDL 78 29 - 89 mg/dl [facility] LDL CALCULATED 146 (H) <130 mg/dl JES Comment: LABORATORY SERVICES - [facility] INDU RISK CATEGORY LDL GOAL High risk: <100 mg/dl CHD or CHD risk equivalents (optional goal: <70 mg/dl) (10-year risk > 20%) Moderately high risk <130 mg/dl 2+ risk factors (10-year risk 10% to 20%) Moderate risk: <130 mg/dl 2+ risk factors (10-year risk < 10%) Lower risk: <160 mg/dl 0-1 risk factor ROBERTOKRISTA PORRAS ACCT#[id number], ,,,, Specimen Blood specimen (specimen) Performing Organization Address City/State/[facility] Ph one Number [facility] Info [facility] CLIA# [id number] [place] [address] [place] [address] [place] [address] [facility] CLIA# [id number] [place] [address] - [place] [address] [place] [address] * COMPREHENSIVE METABOLIC PANEL (06/05/2012 7:37 AM GROUT MACHINE OPERATOR) [facility] GLUCOSE 96 70 - 100 mg/dl [facility] Info [facility] - [place] BUN 20.0 7 - 20 mg/dl [facility] - [place] CREATININE 1.67 (H) 0.51 - 0.95 mg/dl [facility] LABORATORY SERVICES - [place] [facility] GFR 32 >60 ml/min [facility] LAB[facility]ATORY SERVICES - [place] SODIUM 139 134 - 145 mmol/L [facility] LABORATORY SERVICES - [place] POTASSIUM 4.2 3.3 - 4.8 mmol/L [facility] LABORATORY SERVICES - [place] CHLORIDE 104 98 - 107 mmol/L [facility] LABORATORY SERVICES - [place] CO2 23.4 22 - 31 mmol/L [facility] LABORATORY SERVICES - [place] ANION GAP 12 7 - 16 [facility] LABORATORY SERVICES - [place] CALCIUM 9.2 8.5 - 10.1 mg/dl [facility] LABORATORY SERVICES - [place] ALBUMIN 4.0 3.4 - 5.0 g/dl [facility] LABORATORY SERVICES - [facility] IN[facility] TOTAL PROTEIN 8.5 (H) 6.4 - 8.2 g/dl [facility] LABORATORY SERVICES - [place] [facility] BILIRUBIN TOTAL 0.3 <1.1 mg/dl [facility] LABORATORY SERVICES - [place] [facility] ALKALINE 123 50 - 136 IU/L [facility] PHOSPHATASE LABORATORY SERVICES - [place] AST 22 10 - 40 IU/L [facility] LABORATORY SERVICES - [place] ALT 41Comment: ROBERTO-KRISTA PORRAS 25 - 70 IU/L [facility] ACCT#[id number], ,,,, LABORATORY SERVICES - [place] Specimen Blood specimen (specimen) Performing Organization Address City/State/[facility] Ph one Number [facility] LABORATORY SERVICES CLIA# [id number] [place] [address] - [place] [address] LABORATORY SERVICES CLIA# [id number] [facility] [place] [address] - [address] documented in this encounter Visit Diagnoses Diagnosis Hyperlipidemia Other and unspecified hyperlipidemia DA (degenerative arthritis) Osteoarthrosis, unspecified whether gen eralized or localized, unspecified site Knee pain Pain in joint, lower leg Need for prophylactic vaccination and i noculation against influenza documented in this encounter
--- OUTSIDE RECORDS SUMMARY | 2019-08-19 16:10 | XMS REPORT | Encounter Summary ---
Author Author [facility] Organization [facility] Address Unknown Phone Unavailable Care Team Providers Care Travel Clerk Name Role Phone Carlotta Aguayo MD PCP Unavailable Reason for Visit * Auth/Cert Referred By Contact Referred To Contact Status Reason Specialty Diagnoses / Procedures [facility] Operating Room [address] [place] [address] Closed Procedures COLONOSCOPY Encounter Details Care Team Description Date Type Department Vandana Rosen MD NO ADDRESS ON FILE COLONOSCOPY 04/18/2012 Surgery [facility] Operating Room [address] [place] [address] Social History Date Tobacco Use Types Packs/Day Years Used Never Smoker Smokeless Tobacco: Never Used Drinks/Week oz/Week Comments Alcohol Use No Sex Assigned at Date Recorded Not on file documented as of this encounter Last Filed Vital Signs Reading Time Taken Comments Vital Sign 100/60 04/18/2012 10:43 AM DIRECTOR AUTOMOTIVE Blood Pressure 76 04/18/2012 10:43 AM DIRECTOR AUTOMOTIVE Pulse 36.2 C (97.2 F) 04/18/2012 10:43 AM DIRECTOR AUTOMOTIVE Temperature 18 04/18/2012 10:43 AM DIRECTOR AUTOMOTIVE Respiratory Rate - - Oxygen Saturation - - Inhaled Oxygen Concentration 71.7 kg (158 lb) 04/18/2012 9:12 AM DIRECTOR AUTOMOTIVE Weight 157.5 cm (5' 2") 04/18/2012 9:12 AM DIRECTOR AUTOMOTIVE Height 28.9 04/18/2012 9:12 AM DIRECTOR AUTOMOTIVE Body Mass Index documented in this encounter Discharge Instructions * Instructions* Mireya Gold, RN - 04/18/2012 1. Call office, , [...] throughout the day. ExitCare Patient Information 2006 [employer]. * Attachments The following attachments cannot be sent through Care Everywhere.* COLON POLYPS: AFTER YOUR VISIT ([place]) * HEMORRHOIDS: AFTER YOUR VISIT ([place]) * SEDATION FOR A MEDICAL PROCEDURE: AFTER YOUR VISIT ([place]) documented in this encounter Medications at Time [...] * Scanning, Kasey - 04/21/2012 1:21 PM DIRECTOR AUTOMOTIVE Electronically signed by Interface, [facility] [employer] Transcriptions Incoming at 3 1:21 PM DIRECTOR AUTOMOTIVE * Vandana Rosen MD - 04/18/2012 9:46 AM DIRECTOR AUTOMOTIVE Patient examined; history and physical reviewed and no changes noted. Will proc eed with colonoscopy, possible biopsy. CTOR AUTOMOTIVE documented in this encounter OR Notes * OR Anesthesia - Scanning, Aok - 04/21/2012 1:27 PM DIRECTOR AUTOMOTIVE Electronically signed by Interface, [facility] [employer] Transcriptions Incoming at 3 1:27 PM DIRECTOR AUTOMOTIVE * Operative Report - Vandana Rosen MD - 04/18/2012 10:16 AM DIRECTOR AUTOMOTIVE Colonoscopy Procedure Note Procedure: Colonoscopy --screening Pre-operative [...] Recommendations: -Await pathology., -Follow up with me. CTOR AUTOMOTIVE * Bernadette-OP - Liborio Atkinson - 04/18/2012 10:15 AM DIRECTOR AUTOMOTIVE See Moderate Sedation Record for Demerol 50 mg & Versed [address] Rosen, and see for notes & vital signs. CTOR AUTOMOTIVE documented in this encounter Miscellaneous Notes * Scanned Form - Scanning, Aok - 04/21/2012 1:22 PM DIRECTOR AUTOMOTIVE Electronically signed by Srikanth, Tyrone Parks Transcriptions Incoming at 3 1:22 PM DIRECTOR AUTOMOTIVE documented in this encounter Plan of Treatment Not on filedocumented as of this encounter Procedures Comments Procedure Name Priority Date/Time Associated Diag nosis PATHOLOGY Routine 04/18/2012 3:30 PM DIRECTOR AUTOMOTIVE COLONOSCOPY 04/18/2012 9:21 AM DIRECTOR AUTOMOTIVE documented in this encounter Results * PATHOLOGY (04/18/2012 3:30 PM DIRECTOR AUTOMOTIVE) SURGICAL Name: ERA GIBSON ABISAIREBECCA Reynaldo PATHOLOGY : PATHOLOGY 40 Location: [facility] Sex: F Unit#: [id number] Room/Bed: [facility] PRE-6 Ordering Physician: Vandana Rosen M.D. RECD: 04/18/12 PROCEDURE DATE: 04/18/12-[address] [facility] [address]: Vandana Rosen M.D. [facility] DR: ICD CODES: 569.9 PROCEDURES: [id number] LOCATION: [facility] MATERIAL SUBMITTED A) Polyp at 20 centimeters. B) Polyp at 60 centimeters. CLINICAL DIAGNOSIS: Family history of colon cancer. History of colon polyps. Procedure: Colonoscopy with biopsies. Technical component performed at [facility], [address], [place], [place]. GROSS DESCRIPTION A) The specimen consists of [...] is not identified. Dictated by:Med Su MD TD:04/21/121522 [id number] FINAL DIAGNOSIS A) Colon, polyp at 20 cm, biopsy: Hyperplastic polyp. B) Colon, polyp at 60 cm, biopsy: Tubular adenoma. Dictated by: Med Su MD TD:04/21/121522 [id number] CONTINUED ON NEXT PAGE Specimen # [id number] ERA GIBSON (Continued) Signed (electronic signature) Med Su M.D. 04/21/12 [id number] END OF REPORT Comment: , ,,,, Specimen Specimen of unknown material (specimen) Performing Organization Address City/State/Zipcode Ph one Number [facility] LABORATORY SERVICES CLIA# [id number] [place] [address] 01 - [address] PATHOLOGY CLIA# [id number] [place], [place] [address] [facility] [place] [address] documented in this encounter Visit Diagnoses Not on filedocumented in this encounter Administered Medications Action Date Dose Rate Site Medication Order MAR Action 04/18/2012 9:28 AM DIRECTOR AUTOMOTIVE 3 mL sodium chloride 0.9 % flush injection 3 Given mL 3 mL, IV, SEE ADMIN INSTRUCTIONS, Starting Sat04/18/12 at 0908, Until Sat04/18/12 at 1437, Routine, Pre-op documented in this encounter
--- OUTSIDE RECORDS SUMMARY | 2019-08-19 16:10 | XMS REPORT | Encounter Summary ---
Author Author [facility] Organization [facility] Address Unknown Phone Unavailable Care Team Providers Care Information Technology Security Manager Name Role Phone Carlotta Aguayo MD PCP Unavailable Encounter Details Care Team Description Date Type Department Carlotta Aguayo MD NO ADDRESS ON FILE M[facility]cf, Lab Schedule 03/06/2012 Hospital [facility] General Encounter Laboratory Services [address] [address] Social History Date Tobacco [...] Associated Diag nosis CBC WITH DIFFERENTIAL Stat 03/06/2012 DA (dege nerative 7:50 AM TAMALE MACHINE FEEDER arthritis) Hyperlipidemia LIPID PANEL Stat 03/06/2012 DA (degenerativ e 7:50 AM TAMALE MACHINE FEEDER arthritis) Hyperlipidemia COMPREHENSIVE METABOLIC Stat 03/06/2012 DA (de generative PANEL 7:50 AM TAMALE MACHINE FEEDER arthritis) Hyperlipidemia documented in this encounter Results * CBC WITH DIFFERENTIAL (03/06/2012 7:50 AM TAMALE MACHINE FEEDER) WBC 6.44 3.0 - 10.4 x10E3 [facility] LABORATORY SERVICES - [place] RBC 4.75 3.77 - 4.97 x10E6 [facility] - [place] HEMOGLOBIN 15.1 (H) 11.9 - 15.0 g/dL [facility] - [place] HEMATOCRIT 45.5 (H) 34.4 - 43.6 % [facility] - [place] MCV 95.8 79 - 100 fL [facility] - [place] MCH 31.8 28 - 34 pg [facility] - [place] MCHC 33.1 31 - 35 g/dL [facility] - [place] RDW 13.3 11.5 - 15.1 % [facility] - [place] PLATELETS 198 148 - 408 x10E3 [facility] - [place] MPV 8.9 7.4 - 10.6 fL [facility] - [place] NEUTROPHILS 57.6 43 - 73 % [facility] - [place] LYMPHOCYTES 34.7 19 - 47 % [facility] - [place] MONOCYTES 6.0 3 - 9 % [facility] - [place] EOSINOPHILS 0.9 0 - 6 % [facility] - [facility] IN[facility] BASOPHILS 0.8 0 - 1.2 % [facility] [place] NEUTROPHIL 3.71 1.3 - 7.6 x10E3 [facility] - [place] LYMPHOCYTE 2.24 0.6 - 4.9 x10E3 [facility] [place] MONOCYTE 0.39 0.1 - 0.9 x10E3 [facility] - [facility] INDU EOSINOPHIL 0.06 0.0 - 0.2 x10E3 [facility] - [facility] INDU BASOPHILS 0.05Comment: [facility]-JeremieINDU,NE 0 - 0.1 x10E3 [facility] ABSOLUTE ACCT#[id number], ,,,, LABORATORY SERVICES - [place] Specimen Blood specimen (specimen) Performing Organization Address City/State/[facility] Ph one Number [facility] LAB[facility]ORY SERVICES CLIA# [id number] [place] [address] [address] LABORATORY SERVICES CLIA# [id number] [place] [address] - [address] * COMPREHENSIVE METABOLIC PANEL (03/06/2012 7:50 AM TAMALE MACHINE FEEDER) [facility] GLUCOSE 97 70 - 100 mg/dl [facility] - [place] BUN 21.0 (H) 7 - 20 mg/dl [facility] LABORATORY SERVICES - [facility] INDU CREATININE 1.55 (H) 0.51 - 0.95 mg/dl [facility] LABORATORY SERVICES - [facility] INDU BUN/CREAT RATIO 13.5 10 - 20 [facility] LABORATORY SERVICES - [facility] INDU GFR 35 >60 ml/min [facility] LABORATORY SERVICES - [facility] INDU SODIUM 140 134 - 145 mmol/L [facility] LABORATORY SERVICES - [facility] INDU POTASSIUM 4.0 3.3 - 4.8 mmol/L [facility]ORY SERVICES - [place] CHLORIDE 105 98 - 107 mmol/L [facility] LABORATORY SERVICES - [facility] INDU CO2 22.2 22 - 31 mmol/L [facility] SERVICES - [place] ANION GAP 17 4 - 20 [facility] LABORATORY SERVICES - [facility] INDU CALCIUM 9.0 8.5 - 10.1 mg/dl [facility] LABORATORY SERVICES - [facility] INDU ALBUMIN 3.8 3.4 - 5.0 g/dl [facility]ATORY SERVICES - [place] TOTAL PROTEIN 7.9 6.4 - 8.2 g/dl [facility] LABORATORY [facility] - [place] GLOBULIN (CALC) 4.1 [facility] - [place] ALBUMIN/GLOBULI 0.9 [facility] N RATIO LABORATORY SERVICES - [place] BILIRUBIN TOTAL 0.3 <1.1 mg/dl [facility] LABORATORY SERVICES - [place] ALKALINE 96 50 - 136 IU/L [facility] PHOSPHATASE LABORATORY SERVICES - [place] AST 13 10 - 40 IU/L [facility] LAB[facility]ATORY SERVICES - [place] ALT 34Comment: [facility]-KRISTA PORRAS 25 - 70 IU/L M ERCY ACCT#[id number], ,,,, LABORATORY SERVICES - [place] Specimen Blood specimen (specimen) Performing Organization Address City/State/Zipcode Ph one Number [facility] LABORATORY [facility] CLIA# [id number] [place] [address] - [place] [address] [place] [address] LABORATORY SERVICES CLIA# [id number] [place] [address] - [facility] INDU [address] [place] [address] * LIPID PANEL (03/06/2012 7:50 AM TAMALE MACHINE FEEDER) [facility] CHOLESTEROL 253 (H) 140 - 200 mg/dl [facility] [place] TRIGLYCERIDE 70 0 - 199 mg/dl [facility] Comment: LABORATORY REFERENCE RANGE - SERVICES - [place] NORMAL LESS THAN 150 mg/dl BORDERLINE HIGH 150 - 199 mg/dl HIGH 200 - 499 mg/dl VERY HIGH GREATER THAN OR = 500 mg/dl HDL 78 29 - 89 mg/dl [facility] - [place] LDL CALCULATED 161 (H) <130 mg/dl [facility] Comment: LABORATORY SERVICES - [facility] INDU RISK CATEGORY LDL GOAL High risk: <100 mg/dl CHD or CHD risk equivalents (optional goal: <70 mg/dl) (10-year risk > 20%) Moderately high risk <130 mg/dl 2+ risk factors (10-year risk 10% to 20%) Moderate risk: <130 mg/dl 2+ risk factors (10-year risk < 10%) Lower risk: <160 mg/dl 0-1 risk factor KRISTA TONG ACCT#[id number], ,,,, Specimen Blood specimen (specimen) Performing Organization Address City/State/[facility] Ph one Number [facility] LABORATORY SERVICES CLIA# [id number] [place] [address] - [place] [address] [place] [address] LABORATORY SERVICES CLIA# [id number] [place] [address] - [address] documented in this encounter Visit Diagnoses Diagnosis DA (degenerative arthritis) Osteoarthrosis, unspecified whether gen eralized or localized, unspecified site Hyperlipidemia Other and unspecified hyperlipidemia documented in this encounter
--- OUTSIDE RECORDS SUMMARY | 2019-08-19 16:11 | XMS REPORT | Encounter Summary ---
Author Author [facility] Organization [facility] Address Unknown Phone Unavailable Care Team Providers Care Ammonia Box Tender Name Role Phone Carlotta Aguayo MD PCP Unavailable Encounter Details Care Team Description Date Type Department Carlotta Aguayo MD NO ADDRESS ON FILE Mhcf, Lab Schedule 09/05/2011 Hospital [facility] General Encounter Laboratory Services [address] [address] Social History Date Tobacco Use Types Packs/Day Years Used Never Smoker Smokeless Tobacco: Never Used Drinks/Week oz/Week Comments Alcohol Use No Sex Assigned at Date Recorded Not on file documented as of this encounter Medications at Time of Discharge Start Date End Date Medication Sig Dispensed Refills 09/03/2011 03/03/2012 raloxifene (EVISTA) 60 mg Take 1 Tab by 30 Tab 5 Oral tabletIndications: mouth daily. Menopausal disorder 08/13/2011 02/11/2012 metoprolol tartrate Take 1 Tab by 60 Tab 5 (LOPRESSOR) 25 mg Oral mouth 2 times tabletIndications: daily. Hypertension 08/10/2011 02/04/2012 NIFEdipine SR 24 hour Take 1 Tab by 60 Tab 5 (PROCARDIA XL) 30 mg Oral mouth 2 times tablet daily. 07/17/2011 07/15/2012 dicyclomine (BENTYL) 20 Take 1 [...] Associated Diag nosis CBC WITH DIFFERENTIAL Stat 09/05/2011 DA (dege nerative 7:54 AM CDT arthritis) Hypertension Renal insufficiency DM w/o complication type II HEMOGLOBIN A1C Stat 09/05/2011 DA (degenerativ e 7:54 AM CDT arthritis) Hypertension Renal insufficiency DM w/o complication type II LIPID PANEL Stat 09/05/2011 DA (degenerativ e 7:54 AM CDT arthritis) Hypertension Renal insufficiency DM w/o complication type II COMPREHENSIVE METABOLIC Stat 09/05/2011 DA (de generative PANEL 7:54 AM CDT arthritis) Hypertension Renal insufficiency DM w/o complication type II documented in this encounter Results * LIPID PANEL (09/05/2011 7:54 AM CDT) [facility] CHOLESTEROL 238 (H) 140 - 200 mg/dl [facility] [place] TRIGLYCERIDE 116 0 - 199 mg/dl [facility] Comment: LABORATORY REFERENCE RANGE - [facility] [place] NORMAL LESS THAN 150 mg/dl BORDERLINE HIGH 150 - 199 mg/dl HIGH 200 - 499 mg/dl VERY HIGH GREATER THAN OR = 500 mg/dl HDL 83 29 - 89 mg/dl [facility] [place] LDL CALCULATED 132 (H) <130 mg/dl [facility] Comment: LABORATORY SERVICES - [place] RISK CATEGORY LDL GOAL High risk: <100 mg/dl CHD or CHD risk equivalents (optional goal: <70 mg/dl) (10-year risk > 20%) Moderately high risk <130 mg/dl 2+ risk factors (10-year risk 10% to 20%) Moderate risk: <130 mg/dl 2+ risk factors (10-year risk < 10%) Lower risk: <160 mg/dl 0-1 risk factor JESKRISTA PORRAS ACCT#[id number], ,,,, Specimen Blood specimen (specimen) Performing Organization Address [facility] LABORATORY SERVICES CLIA# [id number] [place] [address] [address] LABORATORY SERVICES CLIA# [id number] [place] [address] - [address] * HEMOGLOBIN A1C (09/05/2011 7:54 AM CDT) [facility] HEMOGLOBIN A1C 6.0 0 - 6.0 % [facility] - [place] GLUCOSE, MEAN 124Comment: KRISTA TONG mg/dl [facility] B[facility]OD ACCT#[id number], ,,,, LABORATORY SERVICES - [place] Specimen Blood specimen (specimen) Performing Organization Address [facility] LABORATORY SERVICES CLIA# [id number] [place] [address] [address] LABORATORY SERVICES CLIA# [id number] [place] [address] - [place] [address] [place] [address] * COMPREHENSIVE METABOLIC PANEL (09/05/2011 7:54 AM CDT) [facility] GLUCOSE 97 70 - 100 mg/dl [facility] - [place] BUN 21.0 (H) 7 - 20 mg/dl [facility] - [place] CREATININE 2.13 (H) 0.6 - 1.0 mg/dl [facility] - [place] BUN/CREAT RATIO 9.9 (L) 10 - 20 [facility] - [place] GFR 24 >60 ml/min [facility] - [place] SODIUM 140 134 - 145 mmol/L [facility] - [place] POTASSIUM 3.9 3.3 - 4.8 mmol/L [facility] - [place] CHLORIDE 103 98 - 107 mmol/L [facility] - [place] CO2 24.3 22 - 31 mmol/L [facility] - [place] ANION GAP 17 4 - 20 [facility] - [place] CALCIUM 9.2 8.5 - 10.1 mg/dl [facility] - [place] ALBUMIN 3.8 3.4 - 5.0 g/dl [facility] - [place] TOTAL PROTEIN 8.2 6.4 - 8.2 g/dl [facility] - [place] GLOBULIN (CALC) 4.4 [facility] - [place] ALBUMIN/GLOBULI 0.9 [facility] [facility] LAB[facility]ATORY SERVICES - [place] BILIRUBIN TOTAL 0.4 <1.1 mg/dl [facility] [facility] - [place] ALKALINE 123 50 - 136 IU/L [place] PHOSPHATASE LABORATORY SERVICES - [place] AST 20 10 - 40 IU/L [facility] [facility] - [place] ALT 37Comment: [place]-KRISTA PORRAS 25 - 70 IU/L M [facility] ACCT#[id number], ,,,, LABORATORY SERVICES - [place] Specimen Blood specimen (specimen) Performing Organization Address City/State/Zipcode Ph one Number [facility] CLIA# [id number] [place] [address] - [place] [address] [place] [address] LABORATORY SERVICES CLIA# [id number] [place] [address] - [place] [address] [place] [address] * CBC WITH DIFFERENTIAL (09/05/2011 7:54 AM CDT) WBC 6.55 3.0 - 10.4 x10E3 [facility] [place] RBC 4.92 3.77 - 4.97 x10E6 [facility] - [facility] INDU HEMOGLOBIN 14.8 11.9 - 15.0 g/dL [facility] - [facility] IN[facility] HEMATOCRIT 45.6 (H) 34.4 - 43.6 % [facility] - [facility] IN[facility] MCV 92.6 79 - 100 fL [facility] - [facility] IN[facility] MCH 30.0 28 - 34 pg [facility] - [facility] IN[facility] MCHC 32.4 31 - 35 g/dL [facility] - [facility] IN[facility] RDW 13.2 11.5 - 15.1 % [facility] - [facility] IN[facility] PLATELETS 202 148 - 408 x10E3 [facility] - [facility] IN[facility] MPV 8.4 7.4 - 10.6 fL [facility] - [facility] IN[facility] NEUTROPHILS 56.8 43 - 73 % [facility] - [facility] LYMPHOCYTES 35.1 19 - 47 % [facility] - [facility] MONOCYTES 5.6 3 - 9 % [facility] - [facility] EOSINOPHILS 1.6 0 - 6 % [facility] - [facility] BASOPHILS 0.9 0 - 1.2 % [facility] - [facility] NEUTROPHIL 3.72 1.3 - 7.6 x10E3 [facility] - [facility] LYMPHOCYTE 2.29 0.6 - 4.9 x10E3 [facility] - [facility] IN[facility] MONOCYTE 0.37 0.1 - 0.9 x10E3 [facility] - [facility] IN[facility] EOSINOPHIL 0.11 0.0 - 0.2 x10E3 [facility] - [facility] IN[facility] BASOPHILS 0.06Comment: [facility] 0 - 0.1 x10E3 [place] [facility] ACCT#[id number], ,,,, LABORATORY SERVICES - ORIENTAL Specimen Blood specimen (specimen) Performing Organization Address City/State/Zipcode Ph one Number [facility] [facility] CLIA# [id number] [place] [address] - [address] LABORATORY SERVICES CLIA# [id number] [place] [address] - [place] [address] documented in this encounter Visit Diagnoses Diagnosis DA (degenerative arthritis) Osteoarthrosis, unspecified whether gen eralized or localized, unspecified site Hypertension Unspecified essential hypertension Renal insufficiency Unspecified disorder of kidney and uret er Type II or unspecified type diabetes me llitus without mention of complication, not stated as uncontrolled documented in this encounter
--- OUTSIDE RECORDS SUMMARY | 2019-08-19 16:11 | XMS REPORT | Encounter Summary ---
Author Author [facility] Organization [facility] Address Unknown Phone Unavailable Care Team Providers Care Windchill Administrator Name Role Phone Carlotta Aguayo MD PCP Unavailable Encounter Details Care Team Description Date Type Department Carlotta Aguayo MD NO ADDRESS ON FILE 02/20/2012 Hospital [facility] Se rvices Encounter [address] [address] Social History Date Tobacco Use Types Packs/Day Years Used Never Smoker Smokeless Tobacco: Never Used Drinks/Week oz/Week Comments Alcohol Use No Sex Assigned at Date Recorded Not on file documented as of this encounter Medications at Time of Discharge Start Date End Date Medication Sig Dispensed Refills 02/20/2012 09/03/2012 HYDROcodone-acetaminophen Take 1 Tab by [...] daily as (degenerative arthritis), needed . Hyperlipidemia 09/03/2011 03/03/2012 raloxifene (EVISTA) 60 mg Take 1 Tab by 30 Tab 5 Oral tabletIndications: mouth daily. 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 There are degenerative changes with ost eophytosis. No fractures or dislocations are seen. No bony masses a re noted. Procedure Note Interface, [facility] Incoming Radiology Results - 02/20/2012 10:09 AM BEATER ROOM HELPER Left knee HISTORY: Pain Three views are obtained. There are degenerative changes with osteophytosis. No fractures or dislocations are seen. No bony masses are noted. IMPRESSION IMPRESSION: DJD Performing Organization Address City/State/Zipcode Ph one Number INTERFACE SYSTEM INTERFACE SYSTEM Refer to clinic/hospital department documented in this encounter Visit Diagnoses Diagnosis Knee pain Pain in joint, lower leg documented in this encounter
--- OUTSIDE RECORDS SUMMARY | 2019-08-19 16:11 | XMS REPORT | Encounter Summary ---
Author Author [facility] Organization [facility] Address Unknown Phone Unavailable Care Team Providers Care Recapper Name Role Phone Carlotta Aguayo MD PCP Unavailable Encounter Details Care Team Description Date Type Department Carlotta Aguayo MD NO ADDRESS ON FILE Mhcf, Lab Schedule 09/07/2011 Hospital [facility] General Encounter Laboratory Services [address] [address] Social History Date Tobacco Use [...] Procedure Name Priority Date/Time Associated Diag nosis CREATININE, 24 HR URINE Routine 09/07/2011 Renal insufficiency 12:00 AM CDT documented in this encounter Results * CREATININE, 24 HR URINE (09/07/2011 12:00 AM CDT) Creatinine, 49 29 - 226 mg/dl [facility] Urine LABORATORY SERVICES - [place] CREATININE, 24 1005 670 - 1590 mg/day [facility] URINE LABORATORY SERVICES - [place] VOLUME, 24 HR 2050 ml [facility] URINE LABORATORY SERVICES - [place] LENGTH OF 24Comment: [facility] M ERCY COLLECTION ACCT#[id number], ,,,, LABORATORY SERVICES - [place] Specimen 24 hour urine sample (specimen) Performing Organization Address City/State/Zipcowv Ph one Number [facility] LABORATORY SERVICES CLIA# [id number] [place], [place] [address] - [place] [address] LABORATORY SERVICES CLIA# [id number] [place] [address] - [address] documented in this encounter Visit Diagnoses Diagnosis Renal insufficiency Unspecified disorder of kidney and uret er documented in this encounter
--- OUTSIDE RECORDS SUMMARY | 2019-08-19 16:11 | XMS REPORT | Encounter Summary ---
Author Author [facility] Organization [facility] Address Unknown Phone Unavailable Care Team Providers Care Chart Collector Name Role Phone Carlotta Aguayo MD PCP Unavailable Encounter Details Care Team Description Date Type Department Carlotta Aguayo MD NO ADDRESS ON FILE [facility], Lab Schedule 06/06/2011 Hospital [facility] General Encounter Laboratory Services [address] [phone] Social History Date Tobacco Use Types Packs/Day Years Used Never Smoker Smokeless Tobacco: Never Used Drinks/Week oz/Week Comments Alcohol Use No Sex Assigned at Date Recorded Not on file documented as of this encounter Medications at Time of Discharge Start Date End Date Medication Sig Dispensed Refills 07/17/2011 dicyclomine (BENTYL) 20 Take 20 mg by 0 mg Oral tablet mouth 2 times daily. 05/21/2011 08/13/2011 colchicine-probenecid Take 1 Tab by 30 Tab 2 (COLBENEMID) 0.5-500 mg mouth daily. Oral Tab Prn 02/26/2011 09/03/2011 raloxifene (EVISTA) 60 mg Take 1 Tab by 30 Tab 5 Oral tabletIndications: mouth daily. Menopausal disorder 02/12/2011 08/13/2011 metoprolol tartrate Take 1 Tab by 60 Tab 5 (LOPRESSOR) 25 mg Oral mouth 2 times tabletIndications: daily. Hypertension 01/29/2011 08/10/2011 NIFEdipine SR 24 hour Take 1 Tab by 60 Tab 5 (PROCARDIA XL) 30 mg Oral mouth 2 times tablet daily. 08/08/2017 aspirin (BABY ASPIRIN) 81 Take 81 mg by 0 mg Oral Chew mouth every other day . documented as of this encounter Plan of Treatment Not on filedocumented as of this encounter Procedures Comments Procedure Name Priority Date/Time Associated Diag nosis CBC WITH DIFFERENTIAL Stat 06/06/2011 Hyperten prerna 8:02 AM SALESPERSON SURGICAL APPLIANCES HEMOGLOBIN A1C Stat 06/06/2011 Elevated glucos e 8:02 AM SALESPERSON SURGICAL APPLIANCES LIPID PANEL Stat 06/06/2011 Hypertension 8:02 AM SALESPERSON SURGICAL APPLIANCES COMPREHENSIVE METABOLIC Stat 06/06/2011 Hypert ension PANEL 8:02 AM SALESPERSON SURGICAL APPLIANCES Elevated glucose documented in this encounter Results * LIPID PANEL (06/06/2011 8:02 AM SALESPERSON SURGICAL APPLIANCES) [facility] CHOLESTEROL 208 (H) 140 - 200 mg/dl [facility] LABORATORY [facility] INDU TRIGLYCERIDE 113 0 - 199 mg/dl [facility] Comment: LABORATORY REFERENCE RANGE - [facility] TRIGLYCERIDES INDU NORMAL LESS THAN 150 mg/dl BORDERLINE HIGH 150 - 199 mg/dl HIGH 200 - 499 mg/dl VERY HIGH GREATER THAN OR = 500 mg/dl HDL 72 29 - 89 mg/dl [facility] LABORATORY [facility] INDU LDL 122 <130 mg/dl [facility] CHOLESTEROL, Comment: LABORATORY DIRECT [facility] [place] [facility] RISK CATEGORY LDL GOAL High risk: <100 mg/dl CHD or CHD risk equivalents (optional goal: <70 mg/dl) (10-year risk > 20%) Moderately high risk <130 mg/dl 2+ risk factors (10-year risk 10% to 20%) Moderate risk: <130 mg/dl 2+ risk factors (10-year risk < 10%) Lower risk: <160 mg/dl 0-1 risk factor [facility] [place] ACCT#[id number], ,,,, Specimen Blood specimen (specimen) Performing Organization Address [facility] one [facility] LABORATORY SERVICES CLIA# [id number] [place] [facility] [address] - [address] LABORATORY SERVICES CLIA# [id number] [place] [address] * HEMOGLOBIN A1C (06/06/2011 8:02 AM SALESPERSON SURGICAL APPLIANCES) [facility] HEMOGLOBIN A1C 5.9 0 - 6.0 % [facility] LABORATORY SERVICES - [place] GLUCOSE, MEAN 121Comment: [facility] [place] mg/dl [facility] BLOOD ACCT#[id number], ,,,, LABORATORY SERVICES - [place] Specimen Blood specimen (specimen) Performing Organization Address [facility] one [facility] LABORATORY IRA [facility] CLIA# [id number] [place] [address] - [address] LABORATORY SERVICES CLIA# [id number] [place] [address] * CBC WITH DIFFERENTIAL (06/06/2011 8:02 AM SALESPERSON SURGICAL APPLIANCES) [facility] Signature WBC 6.33 3.0 - 10.4 x10E3 [facility] - [place] RBC 4.83 3.77 - 4.97 x10E6 [facility] - [place] HEMOGLOBIN 14.4 11.9 - 15.0 g/dL [facility] LABORATORY SERVICES - [facility] INDU HEMATOCRIT 45.1 (H) 34.4 - 43.6 % [facility] - [facility] INDU MCV 93.5 79 - 100 fL [facility] LABORATORY SERVICES - [facility] INDU MCH 29.9 28 - 34 pg [facility] - [facility] INDU MCHC 31.9 (L) 32 - 35 g/dL [facility] - [place] RDW 13.9 11.5 - 15.1 % [facility] - [facility] INDU PLATELETS 221 148 - 408 x10E3 [facility] LABORATORY SERVICES - [place] MPV 8.4 7.4 - 10.6 fL [facility] LABORATORY SERVICES - [facility] INDU NEUTROPHILS 50.2 43 - 73 % [facility] INDU LYMPHOCYTES 40.1 19 - 47 % [facility] INDU MONOCYTES 6.7 3 - 9 % [facility] INDU EOSINOPHILS 2.3 0 - 6 % [facility] INDU BASOPHILS 0.8 0 - 1.2 % [facility] INDU NEUTROPHIL 3.18 1.3 - 7.6 x10E3 [facility] - [facility] INDU LYMPHOCYTE 2.54 0.6 - 4.9 x10E3 [facility] - [facility] INDU MONOCYTE 0.42 0.1 - 0.9 x10E3 [facility] - [facility] INDU EOSINOPHIL 0.15 0.0 - 0.2 x10E3 [facility] SERVICES - [facility] INDU BASOPHILS 0.05Comment: [facility] 0 - 0.1 x10E3 [facility] ABSOLUTE ACCT#[id number], ,,,, LABORATORY SERVICES - [place] Specimen Blood specimen (specimen) Performing Organization Address City/State/[place] Ph one Number [facility] LABORATORY SERVICES CLIA# [id number] [place] [address] - [place] [address] LABORATORY SERVICES CLIA# [id number] [place] [address] - [address] * COMPREHENSIVE METABOLIC PANEL (06/06/2011 8:02 AM SALESPERSON SURGICAL APPLIANCES) GLUCOSE 90 70 - 100 mg/dl [facility] - [place] BUN 21.0 (H) 7 - 20 mg/dl [facility] [place] CREATININE 2.11 (H) 0.6 - 1.0 mg/dl [facility] - [place] BUN/CREAT RATIO 10.0 10 - 20 [facility] [place] GFR 25 >60 ml/min [facility] [place] SODIUM 140 134 - 145 mmol/L [facility] [place] POTASSIUM 3.5 3.3 - 4.8 mmol/L [facility] [place] CHLORIDE 103 98 - 107 mmol/L [facility] [place] CO2 22.6 22 - 31 mmol/L [facility] [place] ANION GAP 18 4 - 20 [facility] [place] CALCIUM 9.1 8.5 - 10.1 mg/dl [facility] [place] ALBUMIN 3.9 3.4 - 5.0 g/dl [facility] [place] TOTAL PROTEIN 8.1 6.4 - 8.2 g/dl [facility] [place] GLOBULIN (CALC) 4.2 [facility] [place] ALBUMIN/GLOBULI 0.9 [facility] LABORATORY SERVICES - [place] BILIRUBIN TOTAL 0.4 <1.1 mg/dl [facility] LABORATORY SERVICES - [place] ALKALINE 122 50 - 136 IU/L [facility] LAB[facility]AT[facility] - [place] AST 21 10 - 40 IU/L [facility] LABORATORY SERVICES - [place] ALT 38Comment: [facility]-KRISTA PORRAS 25 - 70 IU/L M [facility] ACCT#[id number], ,,,, LABORATORY SERVICES - [place] Specimen Blood specimen (specimen) Performing Organization Address City/State/Zipcode Ph one Number [facility] LABORATORY SERVICES CLIA# [id number] [place] [address] - [place] [address] [place] [address] LABORATORY SERVICES CLIA# [id number] [place] [address] - [place] [address] [place] [address] documented in this encounter Visit Diagnoses Diagnosis Hypertension Unspecified essential hypertension Elevated glucose Other abnormal glucose documented in this encounter
--- OUTSIDE RECORDS SUMMARY | 2019-08-19 16:11 | XMS REPORT | Encounter Summary ---
Author Author [facility] Organization [facility] Address Unknown Phone Unavailable Care Team Providers Care Outreach Representative Name Role Phone Carlotta Aguayo MD PCP Unavailable Reason for Visit * Reason Comments Follow Up 3 mos Results lab Leg Pain left,DA, requesting shot Encounter Details Care Team Description Date Type Department Carlotta Aguayo MD NO ADDRESS ON FILE DA (degenerative arthritis) (Primary Dx) ; Hyperlipidemia 12/06/2011 Office Visit [address] [phone] Social History Date Tobacco Use Types Packs/Day Years Used Never Smoker Smokeless Tobacco: Never Used Drinks/Week oz/Week Comments Alcohol Use No Sex Assigned at Date Recorded Not on file documented as of this encounter Last Filed Vital Signs Reading Time Taken Comments Vital Sign 130/90 12/06/2011 8:58 AM CDT Blood Pressure - - Pulse - - Temperature - - Respiratory Rate - - Oxygen Saturation - - Inhaled Oxygen Concentration 73 kg (161 lb) 12/06/2011 8:58 AM CDT Weight 156.2 cm (5' 1.5") 12/06/2011 8:58 AM CDT Height 29.93 12/06/2011 8:58 AM CDT Body Mass Index documented in this encounter Progress Notes * Goyo Aguayo MD - 12/06/2011 9:25 AM CDT HISTORY OF PRESENT ILLNESS Era Viveros, a 71 y.o. female. HPI here in follow up hypertension and degenerative arthritis. occasional L fla nk and cva aching but better L hip pain. REVIEW OF SYSTEMS Review of Systems Constitutional: Negative for fever, activity change, appetite change, fatigue an d unexpected weight change. HENT: Negative for congestion and neck stiffness. Respiratory: Negative for shortness of breath. Cardiovascular: Negative for chest pain. Gastrointestinal: Negative for abdominal pain. Genitourinary: Positive for flank pain. Negative for menstrual problem. Musculoskeletal: Positive for arthralgias. Neurological: Negative for weakness. PHYSICAL EXAM BP 130/90 | Ht 5' 1.5" (1.562 m) | Wt 161 lb (73.029 kg) | BMI 29.93 kg/m2 Physical Exam [nursing notereviewed. Constitutional: She [...] warm and dry. ASSESSMENT and PLAN: 1. DA (degenerative arthritis) (715.90) METHYLPREDNISOLONE ACETATE 80 MG/ML INJ ECTION, DEXAMETHASONE SODIUM PHOSPHATE 4 MG/ML INJECTION 2. Hyperlipidemia (272.4) The current medical regimen is effective; continue present plan and medication s. Current outpatient prescriptions:colchicine-probenecid (COLBENEMID) 0.5-500 mg O ral Tab, Take 1 Tab by mouth. Qod , Disp: , Rfl: ; lansoprazole (PREVACID) 15 m g Oral CpDR, Take 15 mg by mouth. Qod , Disp: , Rfl: ; methylPREDNISolone Aceta te (DEPO-MEDROL) 80 mg/mL Injection Susp, Inject 1 mL by intramuscular injection one time only for 1 dose., Disp: 1 mL, Rfl: 0 dexamethasone (DECADRON) 4 mg/mL Injection Soln, Inject 1 mL by intramuscular in jection one time only for 1 dose., Disp: 1 mL, Rfl: 0; raloxifene (EVISTA) 60 m g Oral tablet, Take 1 Tab by mouth daily., Disp: 30 Tab, Rfl: 5; metoprolol tar trate (LOPRESSOR) 25 mg Oral tablet, Take 1 Tab by mouth 2 times daily., Disp: 6 0 Tab, Rfl: 5; NIFEdipine SR 24 hour (PROCARDIA XL) 30 mg Oral tablet, Take 1 T ab by mouth 2 times daily., Disp: 60 Tab, Rfl: 5 dicyclomine (BENTYL) 20 mg Oral tablet, Take 1 Tab by mouth 4 times daily before meals and at bedtime., Disp: 120 Tab, Rfl: 5; aspirin (BABY ASPIRIN) 81 mg Ora l Chew, Take 81 mg by mouth. Qod , Disp: , Rfl: ; OMEGA-3 FATTY ACIDS (FISH OIL PO), Take 3 Tabs by mouth daily., Disp: , Rfl: documented in this encounter Plan of Treatment Not on filedocumented as of this encounter Results * CBC WITH DIFFERENTIAL (03/06/2012 7:50 AM MOBILE SALES EXPERT) WBC 6.44 3.0 - 10.4 x10E3 [facility] LABORATORY SERVICES - [facility] INDU RBC 4.75 3.77 - 4.97 x10E6 [facility] INDU HEMOGLOBIN 15.1 (H) 11.9 - 15.0 g/dL [facility] LAB[facility] INDU HEMATOCRIT 45.5 (H) 34.4 - 43.6 % [facility] LABORATORY SERVICES - [facility] INDU MCV 95.8 79 - 100 fL [facility] LABORATORY SERVICES - [facility] INDU MCH 31.8 28 - 34 pg [facility] LABORATORY SERVICES - [place] MCHC 33.1 31 - 35 g/dL [facility] LABORATORY [facility] [place] RDW 13.3 11.5 - 15.1 % [facility] LABORATORY SERVICES - [facility] INDU PLATELETS 198 148 - 408 x10E3 [facility] INDU MPV 8.9 7.4 - 10.6 fL [facility] LABORATORY [facility] [place] NEUTROPHILS 57.6 43 - 73 % [facility] LAB[facility] INDU LYMPHOCYTES 34.7 19 - 47 % [facility] LABORATORY SERVICES - [facility] INDU MONOCYTES 6.0 3 - 9 % [facility] LABORATORY SERVICES - [place] EOSINOPHILS 0.9 0 - 6 % [facility] - [place] BASOPHILS 0.8 0 - 1.2 % [facility] LABORATORY SERVICES - [place] NEUTROPHIL 3.71 1.3 - 7.6 x10E3 [facility] SERVICES - [place] LYMPHOCYTE 2.24 0.6 - 4.9 x10E3 [facility] - [place] MONOCYTE 0.39 0.1 - 0.9 x10E3 [facility] - [place] EOSINOPHIL 0.06 0.0 - 0.2 x10E3 [facility] - [place] BASOPHILS 0.05Comment: [facility] 0 - 0.1 x10E3 [facility]UTE ACCT#[id number], ,,,, LABORATORY SERVICES - [place] Specimen Blood specimen (specimen) Performing Organization Address City/State/[facility] Ph one Number [facility] CLIA# [id number] [place] [address] - [address] LAB[facility]ATORY [facility] CLIA# [id number] [facility] [place] [address] - [address] * LIPID PANEL (03/06/2012 7:50 AM MOBILE SALES EXPERT) [facility] CHOLESTEROL 253 (H) 140 - 200 mg/dl [facility] [place] TRIGLYCERIDE 70 0 - 199 mg/dl JES Comment: LABORATORY REFERENCE RANGE - [facility] [place] NORMAL LESS THAN 150 mg/dl BORDERLINE HIGH 150 - 199 mg/dl HIGH 200 - 499 mg/dl VERY HIGH GREATER THAN OR = 500 mg/dl HDL 78 29 - 89 mg/dl [facility] INDU LDL CALCULATED 161 (H) <130 mg/dl JES Comment: LABORATORY SERVICES - [facility] INDU RISK CATEGORY LDL GOAL High risk: <100 mg/dl CHD or CHD risk equivalents (optional goal: <70 mg/dl) (10-year risk > 20%) Moderately high risk <130 mg/dl 2+ risk factors (10-year risk 10% to 20%) Moderate risk: <130 mg/dl 2+ risk factors (10-year risk < 10%) Lower risk: <160 mg/dl 0-1 risk factor KRISTA TONG ACCT#[id number], ,,,, Specimen Blood specimen (specimen) Performing Organization Address City/State/[facility] Ph one Number [facility] [employer] [facility] CLIA# [id number] [place] [address] - [place] [address] [place] [address] [employer] SERVICES CLIA# [id number] [place] [address] - [place] [address] * COMPREHENSIVE METABOLIC PANEL (03/06/2012 7:50 AM MOBILE SALES EXPERT) [facility] GLUCOSE 97 70 - 100 mg/dl [facility] [employer] [facility] [place] BUN 21.0 (H) 7 - 20 mg/dl [facility] [place] CREATININE 1.55 (H) 0.51 - 0.95 mg/dl [facility] LABORATORY SERVICES - [place] BUN/CREAT RATIO 13.5 10 - 20 [facility] LABORATORY SERVICES - [place] GFR 35 >60 ml/min [facility] LABORATORY SERVICES - [place] SODIUM 140 134 - 145 mmol/L [facility] LABORATORY SERVICES - [place] POTASSIUM 4.0 3.3 - 4.8 mmol/L [facility] LABORATORY SERVICES - [place] CHLORIDE 105 98 - 107 mmol/L [facility] LABORATORY SERVICES - [place] CO2 22.2 22 - 31 mmol/L [facility] LABORATORY SERVICES - [place] ANION GAP 17 4 - 20 [facility] LABORATORY SERVICES - [place] CALCIUM 9.0 8.5 - 10.1 mg/dl [facility] LABORATORY SERVICES - [place] ALBUMIN 3.8 3.4 - 5.0 g/dl [facility] LABORATORY SERVICES - [place] TOTAL PROTEIN 7.9 6.4 - 8.2 g/dl [facility] LABORATORY SERVICES - [place] GLOBULIN (CALC) 4.1 [facility] LABORATORY SERVICES - [place] ALBUMIN/GLOBULI 0.9 [facility] N RATIO LABORATORY SERVICES - [place] BILIRUBIN TOTAL 0.3 <1.1 mg/dl [facility] LABORATORY SERVICES - [place] ALKALINE 96 50 - 136 IU/L [facility] PHOSPHATASE LABORATORY SERVICES - [place] AST 13 10 - 40 IU/L [facility] LABORATORY SERVICES - [place] ALT 34Comment: [facility] PORRAS 25 - 70 IU/L M ER[facility]ad[facility] ACCT#[id number], ,,,, LABORATORY SERVICES - [place] Specimen Blood specimen (specimen) Performing Organization Address City/State/Zipcode Ph one Number [facility] LABORATORY SERVICES CLIA# [id number] [place] [address] - [place] [address] [place] [address] LABORATORY SERVICES CLIA# [id number] [place] [address] - [address] documented in this encounter Visit Diagnoses Diagnosis DA (degenerative arthritis) Osteoarthrosis, unspecified whether gen eralized or localized, unspecified site Hyperlipidemia Other and unspecified hyperlipidemia documented in this encounter
--- OUTSIDE RECORDS SUMMARY | 2019-08-19 16:11 | XMS REPORT | Encounter Summary ---
Author Author [facility] Organization [facility] Address Unknown Phone Unavailable Care Team Providers Care Pilot Plant Supervisor Name Role Phone Carlotta Aguayo MD PCP Unavailable Reason for Visit * Reason Comments Knee Pain left, requesting shot Encounter Details Care Team Description Date Type Department aCrlotta Aguayo MD NO ADDRESS ON FILE DA (degenerative arthritis); Knee pain 02/20/2012 Office Visit [address] [phone] Social History Date Tobacco Use Types Packs/Day Years Used Never Smoker Smokeless Tobacco: Never Used Drinks/Week oz/Week Comments Alcohol Use No Sex Assigned at Date Recorded Not on file documented as of this encounter Last Filed Vital Signs Reading Time Taken Comments Vital Sign 134/92 02/20/2012 9:43 AM PSYCHIATRIC NURSE Blood Pressure - - Pulse 36.9 C (98.5 F) 02/20/2012 9:43 AM PSYCHIATRIC NURSE Temperature - - Respiratory Rate - - Oxygen Saturation - - Inhaled Oxygen Concentration 73.5 kg (162 lb) 02/20/2012 9:43 AM PSYCHIATRIC NURSE Weight 153.7 cm (5' 0.5") 02/20/2012 9:43 AM PSYCHIATRIC NURSE Height 31.12 02/20/2012 9:43 AM PSYCHIATRIC NURSE Body Mass Index documented in this encounter Progress Notes * Goyo Aguayo MD - 02/20/2012 9:52 AM PSYCHIATRIC NURSE SUBJECTIVE: Era Viveros is a 71 y.o. female who sustained a left knee injury walking fo r exercise 2 day(s) ago. Mechanism of injury: walking? twisted. Immediate sympto ms: immediate pain, delayed pain. Symptoms have been unchanged since that time. Prior history of related problems: previous knee arthritis. OBJECTIVE: Vital signs as noted above. Appearance: in mild to moderate distress. Knee exam: antalgic gait, soft tissue tenderness over L ant and post knee, effus ion, exam limited by acuity of pain, negative drawer sign, pos pivot sign X-ray: pending review by radiologist. 1. DA (degenerative arthritis) (715.90) dexamethasone (DECADRON) 4 mg/mL Inject ion Soln, DEXAMETHASONE SODIUM PHOSPHATE 4 MG/ML INJECTION, methylPREDNISolone A cetate (DEPO-MEDROL) 80 mg/mL Injection Susp, METHYLPREDNISOLONE ACETATE 80 MG/M L INJECTION 2. Knee pain (719.46) HYDROcodone-acetaminophen (NORCO) 5-325 mg Oral tablet, X R KNEE 3 VW LEFT HIATRIC NURSE documented in this encounter Plan of Treatment Not on filedocumented as of this encounter Results * XR KNEE 3 VW LEFT (02/20/2012 10:03 AM PSYCHIATRIC NURSE) Specimen Impressions Performed At IMPRESSION: [facility] INTERFACE SYSTEM Narrative Performed At Left knee INTERFACE SYSTEM HISTORY: Pain Three views are obtained. There are degenerative changes with ost eophytosis. No fractures or dislocations are seen. No bony masses a re noted. Procedure Note Interface, [facility] Incoming Radiology Results - 02/20/2012 10:09 AM PSYCHIATRIC NURSE Left knee HISTORY: Pain Three views are [...]
--- OUTSIDE RECORDS SUMMARY | 2019-08-19 16:11 | XMS REPORT | Encounter Summary ---
Author Author [facility] Organization [facility] Address Unknown Phone Unavailable Care Team Providers Care Tax Appraiser Name Role Phone Carlotta Aguayo MD PCP Unavailable Reason for Visit * Reason Onset Date Comments Medication Refill 02/04/2012 Encounter Details Care Team Description Date Type Department Carlotta Aguayo MD NO ADDRESS ON FILE 02/04/[address] [phone] Social History Date Tobacco Use Types Packs/Day Years Used Never Smoker Smokeless Tobacco: Never Used Drinks/Week oz/Week Comments Alcohol Use No Sex Assigned at Date Recorded Not on file documented as of this encounter Plan of Treatment Not on filedocumented as of this encounter Visit Diagnoses Not on filedocumented in this encounter
--- OUTSIDE RECORDS SUMMARY | 2019-08-19 16:11 | XMS REPORT | Encounter Summary ---
Author Author [facility] Organization [facility] Address Unknown Phone Unavailable Care Team Providers Care Skiver Heel Tap Name Role Phone Carlotta Aguayo MD PCP Unavailable Reason for Visit * Reason Onset Date Comments Medication Refill 03/03/2012 Encounter Details Care Team Description Date Type Department Carlotta Aguayo MD NO ADDRESS ON FILE Menopausal disorder (Primary Dx) 03/03/[address] [phone] Social History Date Tobacco Use [...]
--- OUTSIDE RECORDS SUMMARY | 2019-08-19 16:11 | XMS REPORT | Encounter Summary ---
Author Author [facility] Organization [facility] Address Unknown Phone Unavailable Care Team Providers Care Manager Roofing Name Role Phone Carlotta Aguayo MD PCP Unavailable Reason for Visit * Reason Onset Date Comments Medication Refill 01/30/2012 Encounter Details Care Team Description Date Type Department Carlotta Aguayo MD NO ADDRESS ON FILE DA (degenerative arthritis); Hyperlipidemia 01/30/[address] [address] Social History Date Tobacco Use Types Packs/Day Years Used Never Smoker Smokeless Tobacco: Never Used Drinks/Week oz/Week Comments Alcohol Use No Sex Assigned at Date Recorded Not on file documented as of this encounter Plan of Treatment Not on filedocumented as of this encounter Visit Diagnoses Diagnosis DA (degenerative arthritis) Osteoarthrosis, unspecified whether gen eralized or localized, unspecified site Hyperlipidemia Other and unspecified hyperlipidemia documented in this encounter
--- OUTSIDE RECORDS SUMMARY | 2019-08-19 16:11 | XMS REPORT | Encounter Summary ---
Author Author [facility] Organization [facility] Address Unknown Phone Unavailable Care Team Providers Care Oil Field Operator Name Role Phone Carlotta Aguayo MD PCP Unavailable Reason for Visit * Reason Onset Date Comments Medication Refill 09/03/2011 Encounter Details Care Team Description Date Type Department Carlotta Aguayo MD NO ADDRESS ON FILE Menopausal disorder (Primary Dx) 09/03/[address] [address] Social History Date Tobacco Use [...]
--- OUTSIDE RECORDS SUMMARY | 2019-08-19 16:11 | XMS REPORT | Encounter Summary ---
Author Author [facility] Organization [facility] Address Unknown Phone Unavailable Care Team Providers Care Mathematics Improvement Teacher Name Role Phone Carlotta Aguayo MD PCP Unavailable Reason for Visit * Reason Onset Date Comments Medication Refill 07/17/2011 Encounter Details Care Team Description Date Type Department Carlotta Aguayo MD NO ADDRESS ON FILE 07/17/[address] [address] Social History Date Tobacco Use Types Packs/Day Years Used Never Smoker Smokeless Tobacco: Never Used Drinks/Week oz/Week Comments Alcohol Use No Sex Assigned at Date Recorded Not on file documented as of this encounter Plan of Treatment Not on filedocumented as of this encounter Visit Diagnoses Not on filedocumented in this encounter
--- OUTSIDE RECORDS SUMMARY | 2019-08-19 16:11 | XMS REPORT | Encounter Summary ---
Author Author [facility] Organization [facility] Address Unknown Phone Unavailable Care Team Providers Care Purler Name Role Phone Carlotta Aguayo MD PCP Unavailable Reason for Visit * Reason Onset Date Comments Medication Refill 08/13/2011 Encounter Details Care Team Description Date Type Department Carlotta Aguayo MD NO ADDRESS ON FILE Hypertension (Primary Dx) 08/13/2011 Refill [facility] [address] [address] Social History Date Tobacco Use [...]
--- OUTSIDE RECORDS SUMMARY | 2019-08-19 16:11 | XMS REPORT | Encounter Summary ---
Author Author [facility] Organization [facility] Address Unknown Phone Unavailable Care Team Providers Care Talend Etl Developer Name Role Phone Carlotta Aguayo MD PCP Unavailable Reason for Referral * Outpatient Services (Routine) Referred By Contact Referred To Contact Status Reason Specialty Diagnoses / Procedures Carlotta Aguayo MD NO ADDRESS ON FILE [facility] Ultrasound [address] [place] [address] Closed Radiology Diagnoses Abdominal pain, generalized Renal insufficiency P rocedures US ABDOMEN COMPLETE Reason for Visit * Outpatient Services (Routine) Referred By Contact Referred To Contact Status Reason Specialty Diagnoses / Procedures Carlotta Aguayo MD NO ADDRESS ON FILE [facility] Ultrasound [address] [place] [address] Closed Radiology Diagnoses Abdominal pain, generalized Renal insufficiency P rocedures US ABDOMEN COMPLETE Encounter Details Care Team Description Date Type Department Carlotta Aguayo MD NO ADDRESS ON FILE 06/13/2011 [facility] F ort Encounter [facility] Ul[facility] [address] [place] [address] Social History Date Tobacco Use [...] Procedure Name Priority Date/Time Associated Diag nosis US ABDOMEN COMPLETE Routine 06/13/2011 Abdominal pain, 9:15 AM CDT generalized Renal insufficiency documented in this encounter Results * US ABDOMEN COMPLETE (06/13/2011 9:15 AM CDT) Specimen Impressions Performed At IMPRESSION: Fatty infiltration of the liver. Atrophy of the kidneys. INTERFACE SYSTEM Narrative Performed At Abdominal ultrasound: INTERFACE SYSTEM HISTORY: Abdominal pain, renal insuffic iency Longitudinal and transverse images were obtained through the abdomen. The gallbladder appears normal without evidence of cholelithiasis or gallbladder wall thickening. There is n o intra or extrahepatic bile duct dilatation with the common duct me asuring approximately 2 mm. The liver is echogenic with loss of interna l architecture and through transmission consistent with fatty infi ltration. The pancreas is not well seen. The visualized portion of th e spleen appears normal. The right kidney appears somewhat small nayla suring 8.3 cm in length. There is cortical thinning. No solid or cysti c masses are seen. There is no hydronephrosis. The left kidney measure s 9.5 cm in length. No solid or cystic masses are seen. There is no hyd ronephrosis. The proximal abdominal aorta and distal IVC appear n ormal. Procedure Note Interface, [facility] Incoming Radiology Results - 06/13/2011 11:58 AM CDT Abdominal ultrasound: HISTORY: Abdominal pain, renal insufficiency Longitudinal and transverse images were obtained through the abdomen. The gallbladder appears normal without evidence of cholelithiasis or gallbladder wall thickening. There is no intra or extrahepatic bile duct dilatation with the common duct measuring approximately 2 mm. The liver is echogenic with loss of internal architecture and through transmission consistent with fatty infiltration. The pancreas is not well seen. The visualized portion of the spleen appears normal. The right kidney appears somewhat small measuring 8.3 cm in length. There is cortical thinning. No solid or cystic masses are seen. There is no hydronephrosis. The left kidney measures 9.5 cm in length. No solid or cystic masses are seen. There is no hydronephrosis. The proximal abdominal aorta and distal IVC appear normal. IMPRESSION IMPRESSION: Fatty infiltration of the liver. Atrophy of the kidneys. Performing Organization Address City/State/Zipcode Ph one Number INTERFACE SYSTEM INTERFACE SYSTEM Refer to clinic/hospital department documented in this encounter Visit Diagnoses Diagnosis Abdominal pain, generalized Renal insufficiency Unspecified disorder of kidney and uret er documented in this encounter
--- OUTSIDE RECORDS SUMMARY | 2019-08-19 16:11 | XMS REPORT | Encounter Summary ---
Author Author [facility] Organization [facility] Address Unknown Phone Unavailable Care Team Providers Care Clerical Investigator Name Role Phone Carlotta Aguayo MD PCP Unavailable Reason for Visit * Reason Onset Date Comments Medication Refill 08/10/2011 Encounter Details Care Team Description Date Type Department Carlotta Aguayo MD NO ADDRESS ON FILE 08/10/[address] [address] Social History Date Tobacco Use Types Packs/Day Years Used Never Smoker Smokeless Tobacco: Never Used Drinks/Week oz/Week Comments Alcohol Use No Sex Assigned at Date Recorded Not on file documented as of this encounter Plan of Treatment Not on filedocumented as of this encounter Visit Diagnoses Not on filedocumented in this encounter
--- OUTSIDE RECORDS SUMMARY | 2019-08-19 16:11 | XMS REPORT | Encounter Summary ---
Author Author [facility] Organization [facility] Address Unknown Phone Unavailable Care Team Providers Care Medical Record Technician Name Role Phone Carlotta Aguayo MD PCP Unavailable Reason for Visit * Reason Comments Follow Up 3 mos Results lab Leg Pain left Encounter Details Care Team Description Date Type Department Carlotta Aguayo MD NO ADDRESS ON FILE Renal insufficiency; DA (degenerative arthritis); Hypertension 09/05/2011 Office Visit [address] [address] Social History Date Tobacco Use Types Packs/Day Years Used Never Smoker Smokeless Tobacco: Never Used Drinks/Week oz/Week Comments Alcohol Use No Sex Assigned at Date Recorded Not on file documented as of this encounter Last Filed Vital Signs Reading Time Taken Comments Vital Sign 140/100 09/05/2011 9:16 AM CDT Blood Pressure - - Pulse - - Temperature - - Respiratory Rate - - Oxygen Saturation - - Inhaled Oxygen Concentration 73.9 kg (163 lb) 09/05/2011 9:16 AM CDT Weight 153.7 cm (5' 0.5") 09/05/2011 9:16 AM CDT Height 31.31 09/05/2011 9:16 AM CDT Body Mass Index documented in this encounter Progress Notes * Goyo Aguayo MD - 09/05/2011 9:39 AM CDT HISTORY OF PRESENT ILLNESS Era Viveros, a 70 y.o. female. HPI here with known renal insufficiency and recurrent L LE radiculopathy. Not wa nting imaging. Underlying gout. follow up hypertension Current outpatient prescriptions:dexamethasone (DECADRON) 4 mg/mL Injection Soln , Inject 1 mL by intramuscular injection one time only for 1 dose., Disp: 1 mL, Rfl: 0; methylPREDNISolone acetate (DEPO-MEDROL) 20 mg/mL Injection Susp, Injec t 1 mL by intramuscular injection one time only for 1 dose., Disp: 1 mL, Rfl: 0; raloxifene (EVISTA) 60 mg Oral tablet, Take 1 Tab by mouth daily., Disp: 30 Ta b, Rfl: 5 metoprolol tartrate (LOPRESSOR) 25 mg Oral tablet, Take 1 Tab by mouth 2 times d aily., Disp: 60 Tab, Rfl: 5; colchicine-probenecid (COLBENEMID) 0.5-500 mg Oral Tab, Take 1 Tab by mouth daily. Prn , Disp: 30 Tab, Rfl: 2; NIFEdipine SR 24 h our (PROCARDIA XL) 30 mg Oral tablet, Take 1 Tab by mouth 2 times daily., Disp: 60 Tab, Rfl: 5 dicyclomine (BENTYL) 20 mg Oral tablet, Take 1 Tab by mouth 4 times daily before meals and at bedtime., Disp: 120 Tab, Rfl: 5; aspirin (BABY ASPIRIN) 81 mg Oral Chew, Take 81 mg by mouth. Qod , Disp: , Rfl: ; OMEGA-3 FATTY ACIDS (FISH OIL PO), Take 3 Tabs by mouth daily., Disp: , Rfl: ; lansoprazole (PREVACID) 15 mg Oral CpDR, Take 15 mg by mouth daily., Disp: , Rfl: Allergies Allergen Reactions Allopurinol Rash Indomethacin Renal Dysfunctions Other Drug (Unclassified Drug) Other (See Comments) Horse serum REVIEW OF SYSTEMS Review of Systems Constitutional: Negative for fever, activity change, appetite change, fatigue an d unexpected weight change. HENT: Negative for congestion and neck stiffness. Respiratory: Negative for shortness of breath. Cardiovascular: Negative for chest pain. Gastrointestinal: Negative for abdominal pain. Genitourinary: Negative for menstrual problem. Musculoskeletal: Negative for arthralgias. Neurological: Negative for weakness. [Ache LLE PHYSICAL EXAM BP 140/100 | Ht 5' 0.5" (1.537 m) | Wt 163 lb (73.936 kg) | BMI 31.31 kg/m2 Physical Exam [nursing notereviewed. Constitutional: She [...] Musculoskeletal: Normal range of motion. She exhibits no tenderness. No red or effusion Neurological: She is alert and oriented to person, place, and time. Skin: Skin is warm and dry. Lab Results Component Value Date SODIUM 140 09/05/2011 POTASSIUM 3.9 09/05/2011 CHLORIDE 103 09/05/2011 CO2 24.3 09/05/2011 CALCIUM 9.2 09/05/2011 BUN 21.0* 09/05/2011 CREATININE 2.13* 09/05/2011 GLUCOSE 97 09/05/2011 TOTAL PROTEIN 8.2 09/05/2011 ALBUMIN 3.8 09/05/2011 BILIRUBIN TOTAL 0.4 09/05/2011 ALKALINE PHOSPHATASE 123 09/05/2011 AST 20 09/05/2011 ALT 37 09/05/2011 ANION GAP 17 09/05/2011 BUN/CREAT RATIO 9.9* 09/05/2011 ASSESSMENT and PLAN: 1. Renal insufficiency (593.9) CREATININE, 24 HR URINE 2. DA (degenerative arthritis) (715.90) dexamethasone (DECADRON) 4 mg/mL Inject ion Soln, DEXAMETHASONE SODIUM PHOSPHATE 4 MG/ML INJECTION, methylPREDNISolone a cetate (DEPO-MEDROL) 20 mg/mL Injection Susp, METHYLPREDNISOLONE ACETATE 20 MG/M L INJECTION 3. Hypertension (401.9) documented in this encounter Plan of Treatment Not on filedocumented as of this encounter Results * LIPID PANEL (12/06/2011 7:53 AM CDT) [facility] CHOLESTEROL 223 (H) 140 - 200 mg/dl [facility] [place] TRIGLYCERIDE 127 0 - 199 mg/dl [facility] Comment: LABORATORY REFERENCE RANGE - SERVICES - [facility] TRIGLYCERIDES INDU NORMAL LESS THAN 150 mg/dl BORDERLINE HIGH 150 - 199 mg/dl HIGH 200 - 499 mg/dl VERY HIGH GREATER THAN OR = 500 mg/dl HDL 65 29 - 89 mg/dl [facility] - [facility] INDU LDL CALCULATED 133 (H) <130 mg/dl [facility] Comment: LABORATORY SERVICES - [place] RISK CATEGORY LDL GOAL High risk: <100 mg/dl CHD or CHD risk equivalents (optional goal: <70 mg/dl) (10-year risk > 20%) Moderately high risk <130 mg/dl 2+ risk factors (10-year risk 10% to 20%) Moderate risk: <130 mg/dl 2+ risk factors (10-year risk < 10%) Lower risk: <160 mg/dl 0-1 risk factor KRISTA TONG ACCT#[id number], ,,,, Specimen Blood specimen (specimen) Performing Organization Address City/State/[facility] Ph one Number [facility] CLIA# [id number] KRISTA LAUREN [address] - [place] [address] [place] [address] LABORATORY SERVICES CLIA# [id number] KRISTA LAUREN [address] - [place] [address] [place] [address] * COMPREHENSIVE METABOLIC PANEL (12/06/2011 7:53 AM CDT) [facility] GLUCOSE 109 (H) 70 - 100 mg/dl [facility] [place] BUN 17.0 7 - 20 mg/dl [facility] [place] CREATININE 2.12 (H) 0.6 - 1.0 mg/dl [facility] [place] BUN/CREAT RATIO 8.0 (L) 10 - 20 [facility] [place] GFR 24 >60 ml/min [facility] [place] SODIUM 137 134 - 145 mmol/L [facility] [place] POTASSIUM 4.1 3.3 - 4.8 mmol/L [facility] [place] CHLORIDE 103 98 - 107 mmol/L [facility] [place] CO2 24.4 22 - 31 mmol/L [facility] [place] ANION GAP 14 4 - 20 [facility] [place] CALCIUM 9.1 8.5 - 10.1 mg/dl [facility] [place] ALBUMIN 3.7 3.4 - 5.0 g/dl [facility] [place] TOTAL PROTEIN 7.6 6.4 - 8.2 g/dl [facility] [place] GLOBULIN (CALC) 3.9 [facility] [place] ALBUMIN/GLOBULI 0.9 [facility] LAB[facility] - [place] BILIRUBIN TOTAL 0.3 <1.1 mg/dl [facility] [place] ALKALINE 96 50 - 136 IU/L [facility] PHOSPHATASE [facility]ATORY [facility] - [place] AST 21 10 - 40 IU/L [facility] [place] ALT 43Comment: KRISTA TONG 25 - 70 IU/L [facility] ACCT#[id number], ,,,, LABORATORY SERVICES - [place] Specimen Blood specimen (specimen) Performing Organization Address City/[facility] Ph one Number [facility] CLIA# [id number] [place] [address] [address] [address] LABORATORY SERVICES CLIA# [id number] [place] [address] * CREATININE, 24 HR URINE (09/07/2011 12:00 AM CDT) Creatinine, 49 29 - 226 mg/dl [facility] Urine LABORATORY SERVICES - [place] CREATININE, 24 1005 670 - 1590 mg/day [facility] URINE LABORATORY SERVICES - [place] VOLUME, 24 HR 2050 ml [facility] URINE [facility]AT[facility] SERVICES - [place] LENGTH OF 24Comment: [facility] COLLECTION ACCT#[id number], ,,,, LABORATORY SERVICES - [place] Specimen 24 hour urine sample (specimen) Performing Organization Address [facility] Ph one Number [facility] CLIA# [id number] [place] [address] LABORATORY SERVICES CLIA# [id number] [place] [address] documented in this encounter Visit Diagnoses Diagnosis Renal insufficiency Unspecified disorder of kidney and uret er DA (degenerative arthritis) Osteoarthrosis, unspecified whether gen eralized or localized, unspecified site Hypertension Unspecified essential hypertension documented in this encounter
--- OUTSIDE RECORDS SUMMARY | 2019-08-19 16:11 | XMS REPORT | Encounter Summary ---
Author Author [facility] Organization [facility] Address Unknown Phone Unavailable Care Team Providers Care Pipe Caulker Name Role Phone Carlotta Aguayo MD PCP Unavailable Encounter Details Care Team Description Date Type Department Carlotta Aguayo MD NO ADDRESS ON FILE [facility], Lab Schedule 12/06/2011 [facility] General Encounter Laboratory Services [address] [address] Social History Date Tobacco Use Types Packs/Day Years Used Never Smoker Smokeless Tobacco: Never Used Drinks/Week oz/Week Comments Alcohol Use No Sex Assigned at Date Recorded Not on file documented as of this encounter Medications at Time of Discharge Start Date End Date Medication Sig Dispensed Refills 01/30/2012 colchicine-probenecid Take 1 Tab by 0 (COLBENEMID) 0.5-500 mg mouth. Qod Oral TabIndications: DA (degenerative arthritis), Hyperlipidemia 08/08/2017 [...] Date/Time Associated Diag nosis LIPID PANEL Stat 12/06/2011 Hypertension 7:53 AM CDT COMPREHENSIVE METABOLIC Stat 12/06/2011 Renal insufficiency PANEL 7:53 AM CDT Hypertension documented in this encounter Results * COMPREHENSIVE METABOLIC PANEL (12/06/2011 7:53 AM CDT) [facility] Signature GLUCOSE 109 (H) 70 - 100 mg/dl [facility] - [place] BUN 17.0 7 - 20 mg/dl [facility] - [place] CREATININE 2.12 (H) 0.6 - 1.0 mg/dl [facility] - [place] BUN/CREAT RATIO 8.0 (L) 10 - 20 [facility] - [place] GFR 24 >60 ml/min [facility] - [place] SODIUM 137 134 - 145 mmol/L [facility] [place] POTASSIUM 4.1 3.3 - 4.8 mmol/L [facility] [place] CHLORIDE 103 98 - 107 mmol/L [facility] [place] CO2 24.4 22 - 31 mmol/L [facility] [place] ANION GAP 14 4 - 20 [facility] [place] CALCIUM 9.1 8.5 - 10.1 mg/dl [facility] INDU ALBUMIN 3.7 3.4 - 5.0 g/dl [facility] [place] TOTAL PROTEIN 7.6 6.4 - 8.2 g/dl [facility] [place] GLOBULIN (CALC) 3.9 [facility] [place] ALBUMIN/GLOBULI 0.9 [facility] LABORATORY SERVICES - [place] BILIRUBIN TOTAL 0.3 <1.1 mg/dl [facility] - [place] ALKALINE 96 50 - 136 IU/L [facility] PHOSPHATASE LABORATORY SERVICES - [place] AST 21 10 - 40 IU/L [facility] - [place] ALT 43Comment: RANKS 25 - 70 IU/L M [facility] ACCT#[id number], ,,,, LABORATORY SERVICES - [place] Specimen Blood specimen (specimen) Performing Organization Address City/State[facility] Ph one Number [facility] CLIA# [id number] KRISTA LAUREN [address] - [place] [address] [place] [address] LABORATORY SERVICES CLIA# [id number] KRISTA LAUREN [address] - [address] * LIPID PANEL (12/06/2011 7:53 AM CDT) [facility] CHOLESTEROL 223 (H) 140 - 200 mg/dl [facility] - [place] TRIGLYCERIDE 127 0 - 199 mg/dl [facility] Comment: LABORATORY REFERENCE RANGE - SERVICES - [place] NORMAL LESS THAN 150 mg/dl BORDERLINE HIGH 150 - 199 mg/dl HIGH 200 - 499 mg/dl VERY HIGH GREATER THAN OR = 500 mg/dl HDL 65 29 - 89 mg/dl [facility] - [facility] INDU LDL CALCULATED 133 (H) <130 mg/dl [facility] Comment: LABORATORY SERVICES - [facility] INDU RISK CATEGORY LDL GOAL High risk: <100 mg/dl CHD or CHD risk equivalents (optional goal: <70 mg/dl) (10-year risk > 20%) Moderately high risk <130 mg/dl 2+ risk factors (10-year risk 10% to 20%) Moderate risk: <130 mg/dl 2+ risk factors (10-year risk < 10%) Lower risk: <160 mg/dl 0-1 risk factor [facility] PORRAS ACCT#[id number], ,,,, Specimen Blood specimen (specimen) Performing Organization Address City/State/[facility] Ph one Number [facility] SERVICES CLIA# [id number] [place] [address] [address] LABORATORY SERVICES CLIA# [id number] [place] [address] - [address] documented in this encounter Visit Diagnoses Diagnosis Hypertension Unspecified essential hypertension Renal insufficiency Unspecified disorder of kidney and uret er documented in this encounter
--- OUTSIDE RECORDS SUMMARY | 2019-08-19 16:11 | XMS REPORT | Encounter Summary ---
Author Author [facility] Organization [facility] Address Unknown Phone Unavailable Care Team Providers Care Sugarcane Planter Name Role Phone Carlotta Aguayo MD PCP Unavailable Reason for Visit * Reason Onset Date Comments Medication Refill 02/11/2012 Encounter Details Care Team Description Date Type Department Carlotta Aguayo MD NO ADDRESS ON FILE Hypertension (Primary Dx) 02/11/2012 Refill [facility] [address] [address] Social History Date Tobacco Use [...]
--- OUTSIDE RECORDS SUMMARY | 2019-08-19 16:12 | XMS REPORT | Encounter Summary ---
Author Author [facility] Organization [facility] Address Unknown Phone Unavailable Care Team Providers Care Healthcare Market Consultant Name Role Phone Carlotta Aguayo MD PCP Unavailable Reason for Visit * Reason Onset Date Comments Medication Refill 02/12/2011 Encounter Details Care Team Description Date Type Department Carlotta Aguayo MD NO ADDRESS ON FILE 02/12/[address] [address] Social History Date Tobacco Use Types Packs/Day Years Used Never Smoker Smokeless Tobacco: Never Used Drinks/Week oz/Week Comments Alcohol Use No Sex Assigned at Date Recorded Not on file documented as of this encounter Plan of Treatment Not on filedocumented as of this encounter Visit Diagnoses Not on filedocumented in this encounter
--- OUTSIDE RECORDS SUMMARY | 2019-08-19 16:12 | XMS REPORT | Encounter Summary ---
Author Author [facility] Organization [facility] Address Unknown Phone Unavailable Care Team Providers Care Geological Engineer Name Role Phone Carlotta Aguayo MD PCP Unavailable Reason for Visit * Reason Comments Immunization/Injection flu Encounter Details Care Team Description Date Type Department Marie Keller PA [address] [place] [address] Need for prophylactic vaccination and in oculation against influenza (Primary Dx) 01/16/2011 Immunization [facility] [place] [address] [place] [address] Social History Date Tobacco Use Types Packs/Day Years Used Never Smoker Smokeless Tobacco: Never Used Drinks/Week oz/Week Comments Alcohol Use No Sex Assigned at Date Recorded Not on file documented as of this encounter Last Filed Vital Signs Reading Time Taken Comments Vital Sign - - Blood Pressure - - Pulse 36.8 C (98.2 F) 01/16/2011 11:09 AM CDT Temperature - - Respiratory Rate - - Oxygen Saturation - - Inhaled Oxygen Concentration - - Weight - - Height - - Body Mass Index documented in this encounter Plan of Treatment Not on filedocumented as of this encounter Visit Diagnoses Diagnosis Need for prophylactic vaccination and i noculation against influenza documented in this encounter
--- OUTSIDE RECORDS SUMMARY | 2019-08-19 16:12 | XMS REPORT | Encounter Summary ---
Author Author [facility] Organization [facility] Address Unknown Phone Unavailable Care Team Providers Care Taste Tester Name Role Phone Carlotta Aguayo MD PCP Unavailable Encounter Details Care Team Description Date Type Department Carlotta Aguayo MD NO ADDRESS ON FILE [facility], Lab Schedule 11/30/2010 Hospital [facility] General Encounter Laboratory Services [address] [address] Social History Date Tobacco Use Types Packs/Day Years Used Never Smoker Smokeless Tobacco: Never Used Drinks/Week oz/Week Comments Alcohol Use No Sex Assigned at Date Recorded Not on file documented as of this encounter Medications at Time of Discharge Start Date End Date Medication Sig Dispensed Refills 11/22/2010 02/12/2011 colchicine-probenecid Take 1 Tab by 30 Tab 2 (COLBENEMID) 0.5-500 mg mouth daily. Oral Tab Prn 10/17/2010 02/12/2011 metoprolol tartrate Take 1 Tab by 60 Tab 3 (LOPRESSOR) 25 mg Oral mouth 2 times tabletIndications: daily. Hypertension 08/31/2010 02/26/2011 raloxifene (EVISTA) 60 mg Take 1 Tab by 30 Tab 5 Oral tabletIndications: mouth daily. Menopausal disorder 08/04/2010 01/29/2011 NIFEdipine SR 24 hour Take 1 Tab [...] Date/Time Associated Diag nosis URIC ACID Stat 11/30/2010 Gout 7:31 AM CDT LIPID PANEL Stat 11/30/2010 Hyperlipidemia 7:31 AM CDT COMPREHENSIVE METABOLIC Stat 11/30/2010 Renal insufficiency PANEL 7:31 AM CDT Gout Hyperlipidemia documented in this encounter Results * URIC ACID (11/30/2010 7:31 AM CDT) URIC ACID 6.6 (H)Comment: 2.6 - 6.0 mg/dl [facility] ACCT#[id number], ,,,, INDU LAB Specimen Blood specimen (specimen) Performing Organization Address City/State/[facility] Ph one Number [facility] CLIA# [id number] KRISTA LAUREN [address] [address] - [place] [address] [place] [address] CLIA# [id number] Jose De Jesus LAUREN S [address] * LIPID PANEL (11/30/2010 7:31 AM CDT) CHOLESTEROL 238 (H) 140 - 200 mg/dl [facility] TRIGLYCERIDE 86 0 - 199 mg/dl [facility] Comment: [facility] REFERENCE RANGE - [facility] TRIGLYCERIDES NORMAL LESS THAN 150 mg/dl BORDERLINE HIGH 150 - 199 mg/dl HIGH 200 - 499 mg/dl VERY HIGH GREATER THAN OR = 500 mg/dl HDL 73 29 - 89 mg/dl [facility] LDL 141 (H) <130 mg/dl [facility] CHOLESTEROL, Comment: KELSIE WEINER DIRECT INDU LAB RISK CATEGORY LDL GOAL High risk: <100 mg/dl CHD or CHD risk equivalents (optional goal: <70 mg/dl) (10-year risk > 20%) Moderately high risk <130 mg/dl 2+ risk factors (10-year risk 10% to 20%) Moderate risk: <130 mg/dl 2+ risk factors (10-year risk < 10%) Lower risk: <160 mg/dl 0-1 risk factor [facility] ACCT#[id number], ,,,, Specimen Blood specimen (specimen) Performing Organization Address City/State[facility] Ph one Number [facility] CLIA# [id number] KRISTA LAUREN [address] [address] - [place] [address] [place] [address] [place] PINON# [id number] Jose De Jesus LAUREN [address] * COMPREHENSIVE METABOLIC PANEL (11/30/2010 7:31 AM CDT) GLUCOSE 103 (H) 70 - 100 mg/dl [facility] BUN 21.0 (H) 7 - 20 mg/dl [facility] CREATININE 1.94 (H) 0.6 - 1.0 mg/dl [facility] BUN/CREAT RATIO 10.8 10 - 20 [facility] GFR 27 >60 ml/min [facility] SODIUM 139 135 - 145 mmol/L [facility] POTASSIUM 4.2 3.3 - 4.8 mmol/L [facility] CHLORIDE 104 98 - 107 mmol/L [facility] CO2 24.0 22 - 31 mmol/L [facility] ANION GAP 15 4 - 20 [facility] CALCIUM 9.3 8.5 - 10.1 mg/dl [facility] ALBUMIN 3.8 3.4 - 5.0 g/dl [facility] TOTAL PROTEIN 7.9 6.4 - 8.2 g/dl [facility] GLOBULIN (CALC) 4.1 [facility] ALBUMIN/GLOBULI 0.9 [facility] N RATIO [employer] [facility] INDU [facility] BILIRUBIN TOTAL 0.3 <1.1 mg/dl [facility] ALKALINE 120 50 - 136 IU/L [facility] PHOSPHATASE [employer] [facility] IN[facility] AST 24 10 - 40 IU/L [facility] IN[facility] ALT 44Comment: ROBERTOKRISTA PORRAS 25 - 70 IU/L [facility] ACCT#[id number], ,,,, CENTER [facility] Specimen Blood specimen (specimen) Performing Organization Address City/State/Zipcode Ph one Number [facility] CLIA# [id number] KRISTA LAUREN [address] [address] - [place] [address] [address] [place] [address] [place] CLIA# [id number] Jose De Jesus LAUREN [address] documented in this encounter Visit Diagnoses Diagnosis Renal insufficiency Unspecified disorder of kidney and uret er Gout Gout, unspecified Hyperlipidemia Other and unspecified hyperlipidemia documented in this encounter
--- OUTSIDE RECORDS SUMMARY | 2019-08-19 16:12 | XMS REPORT | Encounter Summary ---
Author Author [facility] Organization [facility] Address Unknown Phone Unavailable Care Team Providers Care Medical Transcription Supervisor Name Role Phone Carlotta Aguayo MD PCP Unavailable Reason for Visit * Reason Onset Date Comments Medication Refill 02/12/2011 Encounter Details Care Team Description Date Type Department Carlotta Aguayo MD NO ADDRESS ON FILE Hypertension (Primary Dx) 02/12/2011 Refill [facility] [address] [address] Social History Date Tobacco Use [...]
--- OUTSIDE RECORDS SUMMARY | 2019-08-19 16:12 | XMS REPORT | Encounter Summary ---
Author Author [facility] Organization [facility] Address Unknown Phone Unavailable Care Team Providers Care Dietetic Technician Name Role Phone Carlotta Aguayo MD PCP Unavailable Reason for Visit * Reason Onset Date Comments Medication Refill 05/21/2011 Encounter Details Care Team Description Date Type Department Carlotta Aguayo MD NO ADDRESS ON FILE 05/21/[address] [address] Social History Date Tobacco Use Types Packs/Day Years Used Never Smoker Smokeless Tobacco: Never Used Drinks/Week oz/Week Comments Alcohol Use No Sex Assigned at Date Recorded Not on file documented as of this encounter Plan of Treatment Not on filedocumented as of this encounter Visit Diagnoses Not on filedocumented in this encounter
--- OUTSIDE RECORDS SUMMARY | 2019-08-19 16:12 | XMS REPORT | Encounter Summary ---
Author Author [facility] Organization [facility] Address Unknown Phone Unavailable Care Team Providers Care Fellmongery Worker Name Role Phone Carlotta Aguayo MD PCP Unavailable Reason for Visit * Reason Onset Date Comments Medication Refill 11/22/2010 Encounter Details Care Team Description Date Type Department Carlotta Aguayo MD NO ADDRESS ON FILE 11/22/[address] [address] Social History Date Tobacco Use Types Packs/Day Years Used Never Smoker Smokeless Tobacco: Never Used Drinks/Week oz/Week Comments Alcohol Use No Sex Assigned at Date Recorded Not on file documented as of this encounter Plan of Treatment Not on filedocumented as of this encounter Visit Diagnoses Not on filedocumented in this encounter
--- OUTSIDE RECORDS SUMMARY | 2019-08-19 16:12 | XMS REPORT | Encounter Summary ---
Author Author [facility] Organization [facility] Address Unknown Phone Unavailable Care Team Providers Care Pattern Chart Writer Name Role Phone Carlotta Aguayo MD PCP Unavailable Reason for Visit * Reason Comments Follow Up 6 mos Results lab Side Pain does not hurt today but las t week 3 days & nights straight Encounter Details Care Team Description Date Type Department Carlotta Aguayo MD NO ADDRESS ON FILE Hypertension; Hyperlipidemia; DA (degenerative arthritis); Abdominal pain, generalized 11/30/2010 Office Visit [facility] [address] [address] Social History Date Tobacco Use Types Packs/Day Years Used Never Smoker Smokeless Tobacco: Never Used Drinks/Week oz/Week Comments Alcohol Use No Sex Assigned at Date Recorded Not on file documented as of this encounter Last Filed Vital Signs Reading Time Taken Comments Vital Sign 140/98 11/30/2010 8:22 AM CDT Blood Pressure - - Pulse - - Temperature - - Respiratory Rate - - Oxygen Saturation - - Inhaled Oxygen Concentration 72.6 kg (160 lb) 11/30/2010 8:22 AM CDT Weight 152.4 cm (5') 11/30/2010 8:22 AM CDT Height 31.25 11/30/2010 8:22 AM CDT Body Mass Index documented in this encounter Progress Notes * Goyo Aguayo MD - 11/30/2010 8:41 AM CDT HISTORY OF PRESENT ILLNESS Era Viveros, a 69 y.o. female. HPI here with elevated blood pressure, follow up degenerative arthritis. follow up lipidemia. persistent L abdominal colic pain. REVIEW OF SYSTEMS Review of Systems Constitutional: Negative for fever, chills and weight loss. HENT: Negative for nosebleeds, congestion, sore throat and ear discharge. Eyes: Negative. Respiratory: Negative for cough and shortness of breath. Cardiovascular: Negative for chest pain. Gastrointestinal: Negative for nausea, vomiting and diarrhea. Musculoskeletal: Positive for joint pain. Skin: Negative for rash. PHYSICAL EXAM BP 140/98 | Ht 5' (1.524 m) | Wt 160 lb (72.576 kg) | BMI 31.25 kg/m2 Physical Exam Nursing note and vitals reviewed. Constitutional: She is oriented to person, place, and time. She appears well-dev eloped and well-nourished. HENT: Head: Normocephalic and atraumatic. Right Ear: External ear normal. Left Ear: External ear normal. Mouth/Throat: Oropharynx is clear and moist. Eyes: Conjunctivae and extraocular motions are normal. Pupils are equal, round, and reactive to light. Neck: Normal range of motion. Neck supple. Cardiovascular: Normal rate, regular rhythm, normal heart sounds and intact dist al pulses. Pulmonary/Chest: Effort normal and breath sounds normal. Abdominal: Soft. Bowel sounds are normal. Musculoskeletal: Normal range of motion. She exhibits tenderness. Neurological: She is alert and oriented to person, place, and time. Skin: Skin is warm and dry. ASSESSMENT and PLAN: Encounter Diagnoses 1. Hypertension (401.9AJ) 2. Hyperlipidemia (272.4S) 3. DA (degenerative arthritis) (715.90AZ) 4. Abdominal pain, generalized (789.07) dicyclomine (BENTYL) 20 mg Oral tablet documented in this encounter Plan of Treatment Not on filedocumented as of this encounter Visit Diagnoses Diagnosis Hypertension Unspecified essential hypertension Hyperlipidemia Other and unspecified hyperlipidemia DA (degenerative arthritis) Osteoarthrosis, unspecified whether gen eralized or localized, unspecified site Abdominal pain, generalized documented in this encounter"
--- OUTSIDE RECORDS SUMMARY | 2019-08-19 16:12 | XMS REPORT | Encounter Summary ---
Author Author [facility] Organization [facility] Address Unknown Phone Unavailable Care Team Providers Care Can Handler Name Role Phone Carlotta Aguayo MD PCP Unavailable Reason for Visit * Reason Comments Follow Up 2mo with lab Encounter Details Care Team Description Date Type Department Carlotta Aguayo MD NO ADDRESS ON FILE Hypertension (Primary Dx); DA (degenerative arthritis) 10/17/2010 Office Visit [address] [address] Social History Date Tobacco Use Types Packs/Day Years Used Never Smoker Smokeless Tobacco: Never Used Drinks/Week oz/Week Comments Alcohol Use No Sex Assigned at Date Recorded Not on file documented as of this encounter Last Filed Vital Signs Reading Time Taken Comments Vital Sign 170/110 10/17/2010 8:38 AM CDT Blood Pressure - - Pulse - - Temperature - - Respiratory Rate - - Oxygen Saturation - - Inhaled Oxygen Concentration 72.6 kg (160 lb) 10/17/2010 8:38 AM CDT Weight 154.9 cm (5' 1") 10/17/2010 8:38 AM CDT Height 30.23 10/17/2010 8:38 AM CDT Body Mass Index documented in this encounter Progress Notes * Goyo Aguayo MD - 10/17/2010 8:54 AM CDT HISTORY OF PRESENT ILLNESS Era Viveros, a 69 y.o. female. HPI here with elevated blood pressure, follow up degenerative arthritis. REVIEW OF SYSTEMS Review of Systems Constitutional: Negative for fever, chills and weight loss. HENT: Negative for nosebleeds, congestion, sore throat and ear discharge. Eyes: Negative. Respiratory: Negative for cough and shortness of breath. Cardiovascular: Negative for chest pain. Gastrointestinal: Negative for nausea, vomiting and diarrhea. Musculoskeletal: Positive for joint pain. Skin: Negative for rash. PHYSICAL EXAM BP 170/110 | Ht 5' 1" (1.549 m) | Wt 160 lb (72.576 kg) | BMI 30.23 kg/m2 Physical Exam Nursing note and vitals [...] and PLAN: Encounter Diagnoses 1. Hypertension (401.9AJ) metoprolol tartrate (LOPRESSOR) 25 mg Oral tablet 2. DA (degenerative arthritis) (715.90AZ) documented in this encounter Plan of Treatment Not on filedocumented as of this encounter Visit Diagnoses Diagnosis Hypertension Unspecified essential hypertension DA (degenerative arthritis) Osteoarthrosis, unspecified whether gen eralized or localized, unspecified site documented in this encounter
--- OUTSIDE RECORDS SUMMARY | 2019-08-19 16:12 | XMS REPORT | Encounter Summary ---
Author Author [facility] Organization [facility] Address Unknown Phone Unavailable Care Team Providers Care Nc Manager Name Role Phone Carlotta Aguayo MD PCP Unavailable Reason for Visit * Reason Onset Date Comments Medication Refill 10/20/2010 Encounter Details Care Team Description Date Type Department Carlotta Aguayo MD NO ADDRESS ON FILE Knee pain; DA (degenerative arthritis) 10/20/[address] [address] Social History Date Tobacco Use Types Packs/Day Years Used Never Smoker Smokeless Tobacco: Never Used Drinks/Week oz/Week Comments Alcohol Use No Sex Assigned at Date Recorded Not on file documented as of this encounter Plan of Treatment Not on filedocumented as of this encounter Visit Diagnoses Diagnosis Knee pain Pain in joint, lower leg DA (degenerative arthritis) Osteoarthrosis, unspecified whether gen eralized or localized, unspecified site documented in this encounter
--- OUTSIDE RECORDS SUMMARY | 2019-08-19 16:12 | XMS REPORT | Encounter Summary ---
Author Author [facility] Organization [facility] Address Unknown Phone Unavailable Care Team Providers Care Stretch Machine Operator Name Role Phone Carlotta Aguayo MD PCP Unavailable Reason for Visit * Reason Onset Date Comments Medication Refill 08/21/2010 Encounter Details Care Team Description Date Type Department Carlotta Aguayo MD NO ADDRESS ON FILE 08/21/[address] [address] Social History Date Tobacco Use Types Packs/Day Years Used Never Smoker Smokeless Tobacco: Never Used Drinks/Week oz/Week Comments Alcohol Use No Sex Assigned at Date Recorded Not on file documented as of this encounter Plan of Treatment Not on filedocumented as of this encounter Visit Diagnoses Not on filedocumented in this encounter
--- OUTSIDE RECORDS SUMMARY | 2019-08-19 16:12 | XMS REPORT | Encounter Summary ---
Author Author [facility] Organization [facility] Address Unknown Phone Unavailable Care Team Providers Care Grader Meat Name Role Phone Carlotta Aguayo MD PCP Unavailable Reason for Visit * Reason Onset Date Comments Medication Refill 01/29/2011 Encounter Details Care Team Description Date Type Department Carlotta Aguayo MD NO ADDRESS ON FILE 01/29/[address] [address] Social History Date Tobacco Use Types Packs/Day Years Used Never Smoker Smokeless Tobacco: Never Used Drinks/Week oz/Week Comments Alcohol Use No Sex Assigned at Date Recorded Not on file documented as of this encounter Plan of Treatment Not on filedocumented as of this encounter Visit Diagnoses Not on filedocumented in this encounter
--- OUTSIDE RECORDS SUMMARY | 2019-08-19 16:12 | XMS REPORT | Encounter Summary ---
Author Author [facility] Organization [facility] Address Unknown Phone Unavailable Care Team Providers Care Foreign Clerk Name Role Phone Carlotta Aguayo MD PCP Unavailable Reason for Referral * Outpatient Services (Routine) Referred By Contact Referred To Contact Status Reason Specialty Diagnoses / Procedures Carlotta Aguayo MD NO ADDRESS ON FILE [facility] Ultrasound [address] [place] [address] Closed Radiology Diagnoses Abdominal pain, generalized Renal insufficiency P rocedures US ABDOMEN COMPLETE Reason for Visit * Reason Comments Follow Up 6 mos Results lab Medication Question should pt continue meloxica m. of so she needs a script Encounter Details Care Team Description Date Type Department Carlotta Aguayo MD NO ADDRESS ON FILE DA (degenerative arthritis); Hypertension; Abdominal pain, generalized; Renal insufficiency; DM w/o complication type II 06/06/2011 Office Visit [facility] [address] [place] [address] Social History Date Tobacco Use Types Packs/Day Years Used Never Smoker Smokeless Tobacco: Never Used Drinks/Week oz/Week Comments Alcohol Use No Sex Assigned at Date Recorded Not on file documented as of this encounter Last Filed Vital Signs Reading Time Taken Comments Vital Sign 146/100 06/06/2011 8:53 AM MANAGER DOCUMENT CONTROL Blood Pressure - - Pulse - - Temperature - - Respiratory Rate - - Oxygen Saturation - - Inhaled Oxygen Concentration 73.5 kg (162 lb) 06/06/2011 8:53 AM MANAGER DOCUMENT CONTROL Weight 153.7 cm (5' 0.5") 06/06/2011 8:53 AM MANAGER DOCUMENT CONTROL Height 31.12 06/06/2011 8:53 AM MANAGER DOCUMENT CONTROL Body Mass Index documented in this encounter Progress Notes * Goyo Aguayo MD - 06/06/2011 1:33 PM MANAGER DOCUMENT CONTROL HISTORY OF PRESENT ILLNESS Era Viveros, a 70 y.o. female. HPI here in follow up hypertension and degenerative arthritis. Increasing L fla nk and cva aching REVIEW OF SYSTEMS Review of Systems Constitutional: Negative for fever, activity change, appetite change, fatigue an d unexpected weight change. HENT: Negative for congestion and neck stiffness. Respiratory: Negative for shortness of breath. Cardiovascular: Negative for chest pain. Gastrointestinal: Negative for abdominal pain. Genitourinary: Positive for flank pain. Negative for menstrual problem. Musculoskeletal: Positive for arthralgias. Neurological: Negative for weakness. PHYSICAL EXAM BP 146/100 | Ht 5' 0.5" (1.537 m) | Wt 162 lb (73.483 kg) | BMI 31.12 kg/m2 Physical Exam [nursing notereviewed. Constitutional: She [...] normal. Abdominal: Soft. Bowel sounds are normal. Tenderness (L cva area) is present. Musculoskeletal: Normal range of motion. Neurological: She is alert and oriented to person, place, and time. Skin: Skin is warm and dry. ASSESSMENT and PLAN: 1. DA (degenerative arthritis) (715.90) dexamethasone (DECADRON) 4 mg/mL Inject ion Soln, DEXAMETHASONE SODIUM PHOSPHATE 4 MG/ML INJECTION, methylPREDNISolone A cetate (DEPO-MEDROL) 80 mg/mL Injection Susp, METHYLPREDNISOLONE ACETATE 80 MG/M L INJECTION, LIPID PANEL, HEMOGLOBIN A1C, CBC WITH DIFFERENTIAL, COMPREHENSIVE M ETABOLIC PANEL 2. Hypertension (401.9) LIPID PANEL, HEMOGLOBIN A1C, CBC WITH DIFFERENTIAL, COM PREHENSIVE METABOLIC PANEL 3. Abdominal pain, generalized (789.07) US ABDOMEN COMPLETE 4. Renal insufficiency (593.9) US ABDOMEN COMPLETE, LIPID PANEL, HEMOGLOBIN A1C , CBC WITH DIFFERENTIAL, COMPREHENSIVE METABOLIC PANEL 5. DM w/o complication type II (250.00) LIPID PANEL, HEMOGLOBIN A1C, CBC WITH D IFFERENTIAL, COMPREHENSIVE METABOLIC PANEL GER DOCUMENT CONTROL documented in this encounter Plan of Treatment Not on filedocumented as of this encounter Results * COMPREHENSIVE METABOLIC PANEL (09/05/2011 7:54 AM CDT) GLUCOSE 97 70 - 100 mg/dl [facility] [place] BUN 21.0 (H) 7 - 20 mg/dl [facility] [place] CREATININE 2.13 (H) 0.6 - 1.0 mg/dl [facility] [place] BUN/CREAT RATIO 9.9 (L) 10 - 20 [facility] [place] GFR 24 >60 ml/min [facility] [place] SODIUM 140 134 - 145 mmol/L [facility] [place] POTASSIUM 3.9 3.3 - 4.8 mmol/L [facility] [place] CHLORIDE 103 98 - 107 mmol/L [facility] [place] CO2 24.3 22 - 31 mmol/L [facility] [place] ANION GAP 17 4 - 20 [facility] [place] CALCIUM 9.2 8.5 - 10.1 mg/dl [facility] [place] ALBUMIN 3.8 3.4 - 5.0 g/dl [facility] [place] TOTAL PROTEIN 8.2 6.4 - 8.2 g/dl [facility] [place] GLOBULIN (CALC) 4.4 [facility] [place] ALBUMIN/GLOBULI 0.9 [facility] [place] BILIRUBIN TOTAL 0.4 <1.1 mg/dl [facility] [place] ALKALINE 123 50 - 136 IU/L [facility] [place] AST 20 10 - 40 IU/L [facility] [place] ALT 37Comment: KRISTA TONG 25 - 70 IU/L [facility] ACCT#[id number], ,,,, [facility] - [place] Specimen Blood specimen (specimen) Performing Organization Address City/State/Zipcode Ph one Number [facility] CLIA# [id number] KRISTA LAUREN [address] - [place] [address] [place] [address] LABORATORY SERVICES CLIA# [id number] K[place]STA LAUR[place] [address] - [place] [address] [place] [address] * CBC WITH DIFFERENTIAL (09/05/2011 7:54 AM CDT) WBC 6.55 3.0 - 10.4 x10E3 [facility] - [facility] RBC 4.92 3.77 - 4.97 x10E6 [facility] [place] HEMOGLOBIN 14.8 11.9 - 15.0 g/dL [facility] [place] HEMATOCRIT 45.6 (H) 34.4 - 43.6 % [facility] [place] MCV 92.6 79 - 100 fL [facility] [place] MCH 30.0 28 - 34 pg [facility] [place] MCHC 32.4 31 - 35 g/dL [facility] [place] RDW 13.2 11.5 - 15.1 % [facility] [place] PLATELETS 202 148 - 408 x10E3 [facility] [place] MPV 8.4 7.4 - 10.6 fL [facility] [place] NEUTROPHILS 56.8 43 - 73 % [facility] [place] LYMPHOCYTES 35.1 19 - 47 % [facility] [place] MONOCYTES 5.6 3 - 9 % [facility] [place] EOSINOPHILS 1.6 0 - 6 % [facility] [place] BASOPHILS 0.9 0 - 1.2 % [facility] [place] NEUTROPHIL 3.72 1.3 - 7.6 x10E3 [facility] [place] LYMPHOCYTE 2.29 0.6 - 4.9 x10E3 [facility] [place] MONOCYTE 0.37 0.1 - 0.9 x10E3 [facility] [place] EOSINOPHIL 0.11 0.0 - 0.2 x10E3 [facility] [place] BASOPHILS 0.06Comment: [facility] 0 - 0.1 x10E3 [facility] ACCT#[id number], ,,,, [facility] - [place] Specimen Blood specimen (specimen) Performing Organization Address [facility] Ph one Number [facility] CLIA# [id number] KRISTA LAUREN [address] - [place] [address] [place] [address] LABORATORY SERVICES CLIA# [id number] [place] [address] - [facility] INDU [address] [place] [address] * HEMOGLOBIN A1C (09/05/2011 7:54 AM CDT) Pathologist [facility] HEMOGLOBIN A1C 6.0 0 - 6.0 % [facility] [place] GLUCOSE, MEAN 124Comment: [facility] mg/dl [facility] BLOOD ACCT#[id number], ,,,, LAB[facility]AT[facility] - [place] Specimen Blood specimen (specimen) Performing Organization Address [facility] Ph one Ken [facility] CLIA# [id number] KRISTA LAUREN [address] - [facility] [address] [place] [address] LABORATORY SERVICES CLIA# [id number] [place] [address] - [facility] INDU [address] [place] [address] * LIPID PANEL (09/05/2011 7:54 AM CDT) CHOLESTEROL 238 (H) 140 - 200 mg/dl [facility] IN[facility] TRIGLYCERIDE 116 0 - 199 mg/dl [facility] Comment: LABORATORY REFERENCE RANGE - [facility] NORMAL LESS THAN 150 mg/dl BORDERLINE HIGH 150 - 199 mg/dl HIGH 200 - 499 mg/dl VERY HIGH GREATER THAN OR = 500 mg/dl HDL 83 29 - 89 mg/dl [facility] LDL CALCULATED 132 (H) <130 mg/dl [facility] Comment: LABORATORY SERVICES - [facility] IN[facility] RISK CATEGORY LDL GOAL High risk: <100 mg/dl CHD or CHD risk equivalents (optional goal: <70 mg/dl) (10-year risk > 20%) Moderately high risk <130 mg/dl 2+ risk factors (10-year risk 10% to 20%) Moderate risk: <130 mg/dl 2+ risk factors (10-year risk < 10%) Lower risk: <160 mg/dl 0-1 risk factor ROBERTOKRISTA PORRAS ACCT#[id number], ,,,, Specimen Blood specimen (specimen) Performing Organization Address City/State/[facility] Ph one Number [facility] CLIA# [id number] [place] [address] - [place] [facility] [address] [place] [address] LABORATORY SERVICES CLIA# [id number] [place] [address] - [address] * US ABDOMEN COMPLETE (06/13/2011 9:15 AM [...] IVC appear n ormal. Procedure Note Interface, Tyrone Aok Incoming Radiology Results - 06/13/2011 11:58 [...] Hypertension Unspecified essential hypertension Abdominal pain, generalized Renal insufficiency Unspecified disorder of kidney and uret er Type II or unspecified type diabetes me llitus without mention of complication, not stated as uncontrolled documented in this encounter
--- OUTSIDE RECORDS SUMMARY | 2019-08-19 16:12 | XMS REPORT | Encounter Summary ---
Author Author [facility] Organization [facility] Address Unknown Phone Unavailable Care Team Providers Care Bus Mechanic Name Role Phone Carlotta Aguayo MD PCP Unavailable Reason for Visit * Reason Onset Date Comments Medication Refill 08/31/2010 Encounter Details Care Team Description Date Type Department Carlotta Aguayo MD NO ADDRESS ON FILE Menopausal disorder (Primary Dx) 08/31/[address] [address] Social History Date Tobacco Use [...]
--- OUTSIDE RECORDS SUMMARY | 2019-08-19 16:12 | XMS REPORT | Encounter Summary ---
Author Author [facility] Organization [facility] Address Unknown Phone Unavailable Care Team Providers Care Automotive Manufacturer Name Role Phone Carlotta Aguayo MD PCP Unavailable Reason for Referral * Outpatient Services (Routine) Referred By Contact Referred To Contact Status Reason Specialty Diagnoses / Procedures Carlotta Aguayo MD NO ADDRESS ON FILE [facility] Ultrasound [address] [place] [address] Closed Other Radiology Diagnoses Abdominal pain, generalized Renal insufficiency P rocedures US ABDOMEN COMPLETE Reason for Visit * Outpatient Services (Routine) Referred By Contact Referred To Contact Status Reason Specialty Diagnoses / Procedures Carlotta Aguayo MD NO ADDRESS ON FILE [facility] Ultrasound [address] [place] [address] Closed Other Radiology Diagnoses Abdominal pain, generalized Renal insufficiency P rocedures US ABDOMEN COMPLETE Encounter Details Care Team Description Date Type Department Carlotta Aguayo MD NO ADDRESS ON FILE 08/21/2010 [facility] F ort Encounter [facility] [address] [place] [address] Social History Date Tobacco Use Types Packs/Day Years Used Never Smoker Smokeless Tobacco: Never Used Drinks/Week oz/Week Comments Alcohol Use No Sex Assigned at Date Recorded Not on file documented as of this encounter Medications at Time of Discharge Start Date End Date Medication Sig Dispensed Refills 08/21/2010 11/22/2010 colchicine-probenecid Take 1 Tab by 30 Tab 2 (COLBENEMID) 0.5-500 mg mouth daily. Oral Tab Prn 08/04/2010 01/29/2011 NIFEdipine SR 24 hour Take 1 Tab by 60 Tab 5 (PROCARDIA XL) 30 mg Oral mouth 2 times tablet daily. 07/13/2010 10/20/2010 meloxicam (MOBIC) 7.5 mg Take 1 Tab by 30 Tab 1 Oral tabletIndications: mouth daily. Knee pain, DA (degenerative arthritis) 08/08/2017 aspirin (BABY ASPIRIN) 81 Take 81 mg by 0 mg Oral Chew mouth every other day . 02/20/2010 08/31/2010 raloxifene (EVISTA) 60 mg Take 1 Tab by 30 Tab 5 Oral tabletIndications: mouth daily. Menopausal disorder documented as of this encounter Plan of Treatment Not on filedocumented as of this encounter Procedures Comments Procedure Name Priority Date/Time Associated Diag nosis US ABDOMEN COMPLETE Routine 08/21/2010 Abdominal pain, 8:36 AM CDT generalized Renal insufficiency documented in this encounter Results * US ABDOMEN COMPLETE (08/21/2010 8:36 AM CDT) Specimen Impressions Performed At : Normal abdominal ultrasound. Narrative Performed At ABDOMINAL ULTRASOUND: HISTORY: Abdominal pain. Multiple longitudinal and transverse im ages were obtained through the abdomen. FINDINGS: The gallbladder appears normal without evidence of cholelithiasis or gallbladder wall thickening. No intra or extrahepatic duct dilatation. The visualized portion of the liver, pa ncreas, spleen appear normal. The kidneys are of normal size, shape and c ontour. There is no evidence of hydronephrosis. The proximal abdomina l aorta and distal IVC appear normal. Common bile duct measures ap proximately 4 mm. Procedure Note Patrick Alves MD - 08/22/2010 9:32 AM CDT ABDOMINAL ULTRASOUND: HISTORY: Abdominal pain. Multiple longitudinal and transverse images were obtained through the abdomen. FINDINGS: The gallbladder appears normal without evidence of cholelithiasis or gallbladder wall thickening. No intra or extrahepatic duct dilatation. The visualized portion of the liver, pancreas, spleen appear normal. The kidneys are of normal size, shape and contour. There is no evidence of hydronephrosis. The proximal abdominal aorta and distal IVC appear normal. Common bile duct measures approximately 4 mm. IMPRESSION: Normal abdominal ultrasound. documented in this encounter Visit Diagnoses Diagnosis Abdominal pain, generalized Renal insufficiency Unspecified disorder of kidney and uret er documented in this encounter
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
--- OUTSIDE RECORDS SUMMARY | 2019-08-19 16:12 | XMS REPORT | Encounter Summary ---
Author Author [facility] Organization [facility] Address Unknown Phone Unavailable Care Team Providers Care Installation Manager Name Role Phone Carlotta Aguayo MD PCP Unavailable Encounter Details Care Team Description Date Type Department Carlotta Aguayo MD NO ADDRESS ON FILE [facility], Lab Schedule 08/17/2010 Hospital [facility] General Encounter Laboratory Services [address] [address] Social History Date Tobacco Use Types Packs/Day Years Used Never Smoker Smokeless Tobacco: Never Used Drinks/Week oz/Week Comments Alcohol Use No Sex Assigned at Date Recorded Not on file documented as of this encounter Medications at Time of Discharge Start Date End Date Medication Sig Dispensed Refills 08/04/2010 01/29/2011 NIFEdipine SR 24 hour Take 1 Tab by 60 Tab 5 (PROCARDIA XL) 30 mg Oral mouth 2 times tablet daily. 07/13/2010 10/20/2010 meloxicam (MOBIC) 7.5 mg Take 1 Tab by 30 Tab 1 Oral tabletIndications: mouth daily. Knee pain, DA (degenerative arthritis) 06/02/2010 08/21/2010 colchicine-probenecid Take 1 Tab by 30 Tab 1 (COLBENEMID) 0.5-500 mg mouth daily. Oral Tab Prn 08/08/2017 aspirin (BABY ASPIRIN) 81 Take 81 [...] Date/Time Associated Diag nosis COMPREHENSIVE METABOLIC Stat 08/17/2010 Hypert ension PANEL 7:55 AM CDT documented in this encounter Results * COMPREHENSIVE METABOLIC PANEL (08/17/2010 7:55 AM CDT) GLUCOSE 102 (H) 70 - 100 mg/dl [facility] BUN 23.0 (H) 7 - 20 mg/dl [facility] CREATININE 1.77 (H) 0.6 - 1.0 mg/dl [facility] BUN/CREAT RATIO 13.0 10 - 20 [facility] GFR 30 >60 ml/min [facility] SODIUM 143 135 - 145 mmol/L [facility] POTASSIUM 3.7 3.3 - 4.8 mmol/L [facility] CHLORIDE 109 (H) 98 - 107 mmol/L [facility] CO2 23.6 22 - 31 mmol/L [facility] ANION GAP 14 4 - 20 [facility] CALCIUM 8.8 8.5 - 10.1 mg/dl [facility] ALBUMIN 3.7 3.4 - 5.0 g/dl [facility] TOTAL PROTEIN 7.8 6.4 - 8.2 g/dl [facility] GLOBULIN (CALC) 4.1 [facility] ALBUMIN/GLOBULI 0.9 [facility] BILIRUBIN TOTAL 0.3 <1.1 mg/dl [facility] ALKALINE 137 (H) 50 - 136 IU/L [facility] PHOSPHATASE [facility] AST 23 10 - 40 IU/L [facility] ALT 44Comment: ROBERTOKRISTA PORRAS 25 - 70 IU/L [facility] ACCT#[id number], ,,,, [facility] [place] [facility] Specimen Blood specimen (specimen) Performing Organization Address City/State/Zipcode Ph one Number [facility] CLIA# [id number] KRISTA LAUREN [address] - [place] [address] [place] [address] CLIA# [id number] Jose De Jesus [place] [address] INDU LAB [address] [facility] documented in this encounter Visit Diagnoses Diagnosis Hypertension Unspecified essential hypertension documented in this encounter
--- OUTSIDE RECORDS SUMMARY | 2019-08-19 16:12 | XMS REPORT | Encounter Summary ---
Author Author [facility] Organization [facility] Address Unknown Phone Unavailable Care Team Providers Care Casing Grader Name Role Phone Carlotta Aguayo MD PCP Unavailable Encounter Details Care Team Description Date Type Department Carlotta Aguayo MD NO ADDRESS ON FILE Hypertension; Elevated glucose 11/30/2010 Orders Only [facility] Primar y Care [address] [address] Social History Date Tobacco Use Types Packs/Day Years Used Never Smoker Smokeless Tobacco: Never Used Drinks/Week oz/Week Comments Alcohol Use No Sex Assigned at Date Recorded Not on file documented as of this encounter Plan of Treatment Not on filedocumented as of this encounter Results * CBC WITH DIFFERENTIAL (06/06/2011 8:02 AM ERP TECHNICAL LEAD) WBC 6.33 3.0 - 10.4 x10E3 [facility] RBC 4.83 3.77 - 4.97 x10E6 [facility] HEMOGLOBIN 14.4 11.9 - 15.0 g/dL [facility] HEMATOCRIT 45.1 (H) 34.4 - 43.6 % [facility] MCV 93.5 79 - 100 fL [facility] MCH 29.9 28 - 34 pg [facility] MCHC 31.9 (L) 32 - 35 g/dL [facility] RDW 13.9 11.5 - 15.1 % [facility] PLATELETS 221 148 - 408 x10E3 [facility] MPV 8.4 7.4 - 10.6 fL [facility] [place] NEUTROPHILS 50.2 43 - 73 % [facility] [place] LYMPHOCYTES 40.1 19 - 47 % [facility] [place] MONOCYTES 6.7 3 - 9 % [facility] [place] EOSINOPHILS 2.3 0 - 6 % [facility] [place] BASOPHILS 0.8 0 - 1.2 % [facility] [place] NEUTROPHIL 3.18 1.3 - 7.6 x10E3 [facility] [place] LYMPHOCYTE 2.54 0.6 - 4.9 x10E3 [facility] [place] MONOCYTE 0.42 0.1 - 0.9 x10E3 [facility] [place] EOSINOPHIL 0.15 0.0 - 0.2 x10E3 [facility] [place] BASOPHILS 0.05Comment: [facility] 0 - 0.1 x10E3 [facility] ACCT#[id number], ,,,, [facility] [place] Specimen Blood specimen (specimen) Performing Organization Address [facility] Ph one Number [facility] CLIA# [id number] [place] [address] - [facility] INDU [address] [place] [address] LABORATORY SERVICES CLIA# [id number] [facility] [place] [address] * HEMOGLOBIN A1C (06/06/2011 8:02 AM ERP TECHNICAL LEAD) HEMOGLOBIN A1C 5.9 0 - 6.0 % [facility] [place] GLUCOSE, MEAN 121Comment: [facility] [place] mg/dl [facility] BLOOD ACCT#[id number], ,,,, [facility] [place] Specimen Blood specimen (specimen) Performing Organization Address [facility] Ph one Number [facility]ORY SERVICES CLIA# [id number] [place] [address] - [facility] INDU [address] [place] [address] LABORATORY SERVICES CLIA# [id number] [place] [address] * LIPID PANEL (06/06/2011 8:02 AM ERP TECHNICAL LEAD) CHOLESTEROL 208 (H) 140 - 200 mg/dl [facility]ORATORY SERVICES - [facility] INDU TRIGLYCERIDE 113 0 - 199 mg/dl [facility] Comment: LABORATORY REFERENCE RANGE - SERVICES - [facility] TRIGLYCERIDES INDU NORMAL LESS THAN 150 mg/dl BORDERLINE HIGH 150 - 199 mg/dl HIGH 200 - 499 mg/dl VERY HIGH GREATER THAN OR = 500 mg/dl HDL 72 29 - 89 mg/dl [facility] LABORATORY SERVICES - [facility] INDU LDL 122 <130 mg/dl [facility] CHOLESTEROL, Comment: LAB[facility]ATORY DIRECT [facility] [place] INDU RISK CATEGORY LDL GOAL High risk: <100 mg/dl CHD or CHD risk equivalents (optional goal: <70 mg/dl) (10-year risk > 20%) Moderately high risk <130 mg/dl 2+ risk factors (10-year risk 10% to 20%) Moderate risk: <130 mg/dl 2+ risk factors (10-year risk < 10%) Lower risk: <160 mg/dl 0-1 risk factor K[facility]STA TONG ACCT#[id number], ,,,, Specimen Blood specimen (specimen) Performing Organization Address City/State/Zipcode Ph one Number [facility]ORATORY SERVICES CLIA# [id number] KRISTA [place]UR[place] [address] - [place] INDU [address] [place] [address] LABORATORY SERVICES CLIA# [id number] K[place]STA [place] [address] - [place] [address] [place] [address] * COMPREHENSIVE METABOLIC PANEL (06/06/2011 8:02 AM ERP TECHNICAL LEAD) [facility] GLUCOSE 90 70 - 100 mg/dl [facility] [place] BUN 21.0 (H) 7 - 20 mg/dl [facility] [place] CREATININE 2.11 (H) 0.6 - 1.0 mg/dl [facility] [place] BUN/CREAT RATIO 10.0 10 - 20 [facility] [place] GFR 25 >60 ml/min [facility] [place] SODIUM 140 134 - 145 mmol/L [facility] [place] POTASSIUM 3.5 3.3 - 4.8 mmol/L [facility] [place] CHLORIDE 103 98 - 107 mmol/L [facility] [place] CO2 22.6 22 - 31 mmol/L [facility] [place] ANION GAP 18 4 - 20 [facility] [place] CALCIUM 9.1 8.5 - 10.1 mg/dl [facility] [place] ALBUMIN 3.9 3.4 - 5.0 g/dl [facility] [place] TOTAL PROTEIN 8.1 6.4 - 8.2 g/dl [facility] [place] GLOBULIN (CALC) 4.2 [facility] [place] ALBUMIN/GLOBULI 0.9 [facility] [place] BILIRUBIN TOTAL 0.4 <1.1 mg/dl [facility] [place] ALKALINE 122 50 - 136 IU/L [facility]PHATASE [facility] [place] AST 21 10 - 40 IU/L [facility] [place] ALT 38Comment: KRISTA TONG 25 - 70 IU/L [facility] ACCT#[id number], ,,,, [facility] [place] [facility] Specimen Blood specimen (specimen) Performing Organization Address City/State/Zipcode Ph one Number [facility]ORY SERVICES CLIA# [id number] [place] [address] - [place] [address] LABORATORY SERVICES CLIA# [id number] [place] [address] - [address] documented in this encounter Visit Diagnoses Diagnosis Hypertension Unspecified essential hypertension Elevated glucose Other abnormal glucose documented in this encounter
--- OUTSIDE RECORDS SUMMARY | 2019-08-19 16:12 | XMS REPORT | Encounter Summary ---
Author Author [facility] Organization [facility] Address Unknown Phone Unavailable Care Team Providers Care Master Carpenter Name Role Phone Carlotta Aguayo MD PCP Unavailable Encounter Details Care Team Description Date Type Department Carlotta Aguayo MD NO ADDRESS ON FILE [facility], Lab Schedule 10/17/2010 Hospital [facility] Encounter Laboratory Services [address] [address] Social History Date Tobacco Use Types Packs/Day Years Used Never Smoker Smokeless Tobacco: Never Used Drinks/Week oz/Week Comments Alcohol Use No Sex Assigned at Date Recorded Not on file documented as of this encounter Medications at Time of Discharge Start Date End Date Medication Sig Dispensed Refills 10/17/2010 02/12/2011 metoprolol tartrate Take 1 Tab by 60 Tab 3 (LOPRESSOR) 25 mg Oral mouth 2 times tabletIndications: daily. Hypertension 08/31/2010 02/26/2011 raloxifene (EVISTA) 60 mg Take 1 Tab by 30 Tab 5 Oral tabletIndications: mouth daily. Menopausal disorder 08/21/2010 11/22/2010 colchicine-probenecid Take 1 Tab by [...] Date/Time Associated Diag nosis COMPREHENSIVE METABOLIC Stat 10/17/2010 Hypert ension PANEL 7:22 AM CDT documented in this encounter Results * COMPREHENSIVE METABOLIC PANEL (10/17/2010 7:22 AM CDT) GLUCOSE 112 (H) 70 - 100 mg/dl [facility] BUN 18.0 7 - 20 mg/dl [facility] CREATININE 1.94 (H) 0.6 - 1.0 mg/dl [facility] BUN/CREAT RATIO 9.3 (L) 10 - 20 [facility] GFR 27 >60 ml/min [facility] SODIUM 140 135 - 145 mmol/L [facility] POTASSIUM 4.0 3.3 - 4.8 mmol/L [facility] CHLORIDE 108 (H) 98 - 107 mmol/L [facility] CO2 21.7 (L) 22 - 31 mmol/L [facility] ANION GAP 14 4 - 20 [facility] CALCIUM 9.1 8.5 - 10.1 mg/dl [facility] ALBUMIN 3.8 3.4 - 5.0 g/dl [facility] TOTAL PROTEIN 7.7 6.4 - 8.2 g/dl [facility] GLOBULIN (CALC) 3.9 [facility] ALBUMIN/GLOBULI 1.0 [facility] BILIRUBIN TOTAL 0.4 <1.1 mg/dl [facility] ALKALINE 123 50 - 136 IU/L [facility] PHOSPHATASE [facility] AST 19 10 - 40 IU/L [facility] ALT 39Comment: [facility] 25 - 70 IU/L [facility] ACCT#[id number], ,,,, [facility] Specimen Blood specimen (specimen) Performing Organization Address City/State/Zipcode Ph one Number [facility] LABORATORY SERVICES CLIA# [id number] KRISTA LAUREN [address] - [place] [address] [place] [address] ZI# [id number] Jose De Jesus [place] [address] documented in this encounter Visit Diagnoses Diagnosis Hypertension Unspecified essential hypertension documented in this encounter
--- OUTSIDE RECORDS SUMMARY | 2019-08-19 16:13 | XMS REPORT | Encounter Summary ---
Author Author [facility] Organization [facility] Address Unknown Phone Unavailable Care Team Providers Care Core Placer Name Role Phone Carlotta Aguayo MD PCP Unavailable Reason for Visit * Reason Comments Follow Up 6 mos Results lab Encounter Details Care Team Description Date Type Department Carlotta Aguayo MD NO ADDRESS ON FILE Renal insufficiency; Gout; Hyperlipidemia 05/30/2010 Office Visit [facility] Primar [address] [address] Social History Date Tobacco Use Types Packs/Day Years Used Never Smoker Drinks/Week oz/Week Comments Alcohol Use No Sex Assigned at Date Recorded Not on file documented as of this encounter Last Filed Vital Signs Reading Time Taken Comments Vital Sign 132/82 05/30/2010 8:18 AM PLASTIC EXTRUDING MACHINE OPERATOR Blood Pressure - - Pulse 37.2 C (98.9 F) 05/30/2010 8:18 AM PLASTIC EXTRUDING MACHINE OPERATOR Temperature - - Respiratory Rate - - Oxygen Saturation - - Inhaled Oxygen Concentration 71.2 kg (157 lb) 05/30/2010 8:18 AM PLASTIC EXTRUDING MACHINE OPERATOR Weight - - Height 28.72 04/29/2009 8:45 AM PLASTIC EXTRUDING MACHINE OPERATOR Body Mass Index documented in this encounter Progress Notes * Diana Mclean - 05/30/2010 5:20 PM PLASTIC EXTRUDING MACHINE OPERATOR Addended by: DIANA MCLEAN on: 05/30/2010 Modules accepted: Orders TIC EXTRUDING MACHINE OPERATOR * Goyo Aguayo MD - 05/30/2010 8:27 AM PLASTIC EXTRUDING MACHINE OPERATOR Subjective: Era Viveros is a 69 y.o. female with hyperlipidemia. follow up gout and hyp ertension Lab Results Component Value Date CHOLESTEROL 237* 05/30/2010 CHOLESTEROL 233* 11/28/2009 CHOLESTEROL 234* 01/18/2009 HDL 76 05/30/2010 HDL 60 11/28/2009 HDL 67 01/18/2009 LDL CHOLESTEROL, DIRECT 143* 05/30/2010 LDL CHOLESTEROL, DIRECT 148* 11/28/2009 LDL CHOLESTEROL, DIRECT 131* 01/18/2009 TRIGLYCERIDE 97 05/30/2010 TRIGLYCERIDE 131 11/28/2009 TRIGLYCERIDE 105 01/18/2009 ALT 41 05/30/2010 AST 19 05/30/2010 Lab Results Component Value Date CREATININE 1.93* 05/30/2010 BUN 21.0* 05/30/2010 SODIUM 139 05/30/2010 POTASSIUM 4.2 05/30/2010 CHLORIDE 104 05/30/2010 CO2 21.4* 05/30/2010 GFR 27 05/30/2010 Lab Results Component Value Date ALT 41 05/30/2010 AST 19 05/30/2010 ALKALINE PHOSPHATASE 122 05/30/2010 BILIRUBIN TOTAL 0.4 05/30/2010 Cardiovascular risk analysis - 69 y.o. female LDL goal is under 100. ROS: no side effects of medications, no chest pain on exertion, no dyspnea on ex ertion, no edema. New concerns: elevated blood pressure. Objective: BP 132/82 | Temp 98.9 F (37.2 C) | Wt 157 lb (71.215 kg) Appearance alert, well appearing, and in no distress. General exam BP noted to be mildly elevated today in office, S1, S2 normal, no g allop, no murmur, chest clear, no JVD, no HSM, no edema. Lab review: Labs reviewed, I note that lipids LDL result meets goal. Encounter Diagnoses 1. Renal insufficiency (593.9CV) 2. Gout (274.9H) URIC ACID 3. Hyperlipidemia (272.4S) The current medical regimen is effective; continue present plan and medications . TIC EXTRUDING MACHINE OPERATOR documented in this encounter Plan of Treatment Not on filedocumented as of this encounter Results * URIC ACID (11/30/2010 7:31 AM CDT) URIC ACID 6.6 (H)Comment: 2.6 - 6.0 mg/dl [facility] ACCT#[id number], ,,,[facility] LAB Specimen Blood specimen (specimen) Performing Organization Address City/State/Zipcode Ph one Number [facility] LABORATORY SERVICES CLIA# [id number] KRISTA LAUREN [address] - [place] [facility] [address] [facility]# [id number] [place] Jesus [place] [address] [facility] 401 [facility] * COMPREHENSIVE METABOLIC PANEL (11/30/2010 7:31 AM CDT) GLUCOSE 103 (H) 70 - 100 mg/dl [facility] [place] LAB BUN 21.0 (H) 7 - 20 mg/dl [facility] CREATININE 1.94 (H) 0.6 - 1.0 mg/dl [facility] BUN/CREAT RATIO 10.8 10 - 20 [facility] [place] LAB GFR 27 >60 ml/min [facility] [place] [facility] SODIUM 139 135 - 145 mmol/L [facility] POTASSIUM 4.2 3.3 - 4.8 mmol/L [facility] CHLORIDE 104 98 - 107 mmol/L [facility] CO2 24.0 22 - 31 mmol/L [facility] ANION GAP 15 4 - 20 [facility] CALCIUM 9.3 8.5 - 10.1 mg/dl [facility] [place] [facility] ALBUMIN 3.8 3.4 - 5.0 g/dl [facility] TOTAL PROTEIN 7.9 6.4 - 8.2 g/dl [facility] GLOBULIN (CALC) 4.1 [facility] ALBUMIN/GLOBULI 0.9 [place] [facility] BILIRUBIN TOTAL 0.3 <1.1 mg/dl [facility] ALKALINE 120 50 - 136 IU/L [facility] PHOSPHATASE [facility] AST 24 10 - 40 IU/L [facility] ALT 44Comment: [facility] 25 - 70 IU/L [facility] ACCT#[id number], ,,,, CENTER [place] LAB Specimen Blood specimen (specimen) Performing Organization Address City/State/Zipcode Ph one Number [facility] LABORATORY SERVICES CLIA# [id number] KRISTA LAUREN [address] - [place] IN[facility] [address] [place] [address] [place] CLIA# [id number] Jose De Jesus [place] [address] * LIPID PANEL (11/30/2010 7:31 AM CDT) [facility] CHOLESTEROL 238 (H) 140 - 200 mg/dl [facility] TRIGLYCERIDE 86 0 - 199 mg/dl [facility] Comment: [facility] REFERENCE RANGE - [facility] TRIGLYCERIDES NORMAL LESS THAN 150 mg/dl BORDER[facility] HIGH 150 - 199 mg/dl HIGH 200 - 499 mg/dl VERY HIGH GREATER THAN OR = 500 mg/dl HDL 73 29 - 89 mg/dl [facility] LAB LDL 141 (H) <130 mg/dl [facility] CHOLESTEROL, Comment: [facility] DIRECT INDU LAB RISK CATEGORY LDL GOAL High risk: <100 mg/dl CHD or CHD risk equivalents (optional goal: <70 mg/dl) (10-year risk > 20%) Moderately high risk <130 mg/dl 2+ risk factors (10-year risk 10% to 20%) Moderate risk: <130 mg/dl 2+ risk factors (10-year risk < 10%) Lower risk: <160 mg/dl 0-1 risk factor [facility]#[id number], ,,,, Specimen Blood specimen (specimen) Performing Organization Address [facility] LABORATORY SERVICES IA# [id number] [place] [address] [address] - [address]# [id number] Jose De Jesus [place] [address] * URIC ACID (05/30/2010 7:14 AM PLASTIC EXTRUDING MACHINE OPERATOR) [facility] URIC ACID 9.6 (H)Comment: 2.6 - 6.0 mg/dl [facility] ACCT#[id number], ,,,, INDU LAB Specimen Blood specimen (specimen) Performing Organization Address [facility] LABORATORY SERVICES CLIA# [id number] [place] [address] - [address]# [id number] Jose De Jesus [place] [address] documented in this encounter Visit Diagnoses Diagnosis Renal insufficiency Unspecified disorder of kidney and uret er Gout Gout, unspecified Hyperlipidemia Other and unspecified hyperlipidemia documented in this encounter"
--- OUTSIDE RECORDS SUMMARY | 2019-08-19 16:13 | XMS REPORT | Encounter Summary ---
Author Author [facility] Organization [facility] Address Unknown Phone Unavailable Care Team Providers Care Supervisor Patching Name Role Phone Carlotta Aguayo MD PCP Unavailable Reason for Visit * Reason Comments Follow Up Encounter Details Care Team Description Date Type Department Vandana Rosen MD NO ADDRESS ON FILE Status Post Colonoscopy with Polypectomy (Primary Dx) 05/04/2009 Office Visit [address] [address] Social History Date Tobacco Use Types Packs/Day Years Used Never Smoker Drinks/Week oz/Week Comments Alcohol Use No Sex Assigned at Date Recorded Not on file documented as of this encounter Progress Notes * Vandana Rosen MD - 05/04/2009 2:44 PM EXTERNAL GRINDER TENDER Subjective: Patient no new complaints. Current outpatient prescriptions Medication Sig Dispense Refill OMEGA-3 FATTY ACIDS (FISH OIL PO) Take by mouth. lansoprazole (PREVACID) 15 mg Oral CpDR Take 15 mg by mouth daily. colchicine-probenecid (COLBENEMID) 0.5-500 mg Oral Tab Take 1 Tab by mouth d aily. NIFEdipine SR 24 hour (PROCARDIA XL) 30 mg Oral tablet Take 1 Tab by mouth 2 times daily. 60 Tab 5 raloxifene (EVISTA) 60 mg Oral Tab Take 1 Tab by mouth daily. 30 Tab 5 Objective: General appearance: alert, in no distress Abdomen: Soft, non-tender. Bowel sounds normal. No masses, no organomegaly. Results for orders placed during the hospital encounter of 01/29/10 (from the me [facility] 336 hour(s)) PATHOLOGY Collection Time 04/29/09 1:37 PM Component Value Range SURGICAL PATHOLOGY - Value: Name: ERA GIBSON : 40 Location: [facility] Sex: F Unit#: [id number] Room/Bed: [facility] PRE -6 Att: Vandana Crane M.D. RECD: 04/29/09 PROCEDURE DATE: 04/29/[address] [facility] [address]: Vandana Rosen M.D. [facility] DR: ICD CODES: 211.3 ICD CODES: 569.89 ICD CODES: 569.9 PROCEDURES: [id number] LOCATION: [facility] PATIENT MATERIAL SUBMITTED A) Biopsy of polyp at 15 cm. B) Biopsy of ileocecal valve mucosa. C) Biopsy of mucosa at 60 cm. D) Biopsy of polyp at 50 cm. CLINICAL HISTORY: Constipation, screening. Procedure: Colonoscopy. Technical component performed at [facility], [address] [place] [address]. GROSS DESCRIPTION The specimen is received in four parts. A) Part A labeled 15 cm biopsy polyp. Received in formalin are five fragmen ts of phillips tissue ranging from 0.2x0.1x0.1 cm up to 0.3x0.3x0.2 cm. Submitted in toto i n one cassette. B) Part B is labeled ileocecal valve mucosal biopsy. Received in formalin i s a fragment of phillips tissue measuring 0.2x0.2x0.2 cm. Submitted in toto in one cassette. C) Part C is labeled mucosal biopsy 60 cm. Received in formalin is a fragme nt of phillips tissue measuring 0.5x0.1x0.1 cm. Submitted in toto in one cassette. D) Part D is labeled 50 cm polyp biopsy. Received in formalin are four frag ments of phillips to white tissue ranging from less than 0.1 cm up to 0.2x0.2x0.1 cm. Submitte d in toto in one cassette. Dictated by:Haley Lorenzo,S. V. TD:04/29/09 - [id number] [id number] MICROSCOPIC DESCRIPTION A) Microscopic examination shows multiple fragments of colonic mucosa. Most of the epithelium is adenomatous with tubular architecture. There are some crypts s howing stellate to serrated borders with decreased numbers of goblet cells in the ep ithelium. Malignancy is not identified. B) Microscopic examination shows a fragment of colonic mucosa. It does have some reactive change although there is no active colitis or evidence of chronic disease. T he amount of CONTINUED ON NEXT PAGE Specimen # [id number] ERA GIBSON (Continu ed) MICROSCOPIC DESCRIPTION (Continued) lymphoplasmacytic inflammation in the lamina propria appears appropriate for the anatomic site. A submucosal lymphoid nodule is noted. C) Microscopic examination shows a fragment of colonic mucosa. There is nor mal architecture. Colitis is not identified. D) Microscopic examination shows two fragments of colonic mucosa. Portions of the epithelium are adenomatous with tubular architecture. There is no malignancy . Dictated by:Med Su MD TD:05/02/098 [facility] FINAL DIAGNOSIS A) Colon, 15 cm, biopsies: 1. Tubular adenoma. 2. Hyperplastic polyp. B) Colon, ileocecal valve, biopsy: Submucosal lymphoid nodule. C) Colon, 60 cm, biopsy: No significant pathologic change identified. D) Colon, 50 cm, biopsy: Tubular adenoma. Dictated by: Med Su MD TD:05/02/098 [facility] Signed (electronic signature) Med Su M.D. 2026 END OF REPORT Assessment: Status post colonoscopy with polypectomy, no complications. Polyps both benign. Plan: Follow up as needed. Repeat colonoscopy in 3 years due to finding of adenoma. RNAL GRINDER TENDER documented in this encounter Plan of Treatment Not on filedocumented as of this encounter Visit Diagnoses Diagnosis Status post colonoscopy with polypectom y Other postprocedural status documented in this encounter
--- OUTSIDE RECORDS SUMMARY | 2019-08-19 16:13 | XMS REPORT | Encounter Summary ---
Author Author [facility] Organization [facility] Address Unknown Phone Unavailable Care Team Providers Care Partition Setter Name Role Phone Carlotta Aguayo MD PCP Unavailable Reason for Visit * Reason Comments Follow Up 3 mos Results lab Other check place on back Encounter Details Care Team Description Date Type Department Carlotta Aguayo MD NO ADDRESS ON FILE Nevus Sebaceous (Primary Dx); Hyperlipidemia 11/28/2009 Office Visit [facility] [address] [address] Social History Date Tobacco Use Types Packs/Day Years Used Never Smoker Drinks/Week oz/Week Comments Alcohol Use No Sex Assigned at Date Recorded Not on file documented as of this encounter Last Filed Vital Signs Reading Time Taken Comments Vital Sign 150/102 11/28/2009 9:08 AM CDT Blood Pressure - - Pulse 37.5 C (99.5 F) 11/28/2009 9:08 AM CDT Temperature - - Respiratory Rate - - Oxygen Saturation - - Inhaled Oxygen Concentration 69.4 kg (153 lb) 11/28/2009 9:08 AM CDT Weight - - Height 27.98 04/29/2009 8:45 AM POLYMER TESTER Body Mass Index documented in this encounter Progress Notes * Goyo Aguayo MD - 11/28/2009 9:20 AM CDT Subjective: Era Viveros is a 68 y.o. female with hyperlipidemia. Lab Results Component Value Date CHOLESTEROL 233 11/28/2009 CHOLESTEROL 234 01/18/2009 CHOLESTEROL 242 10/18/2008 HDL 60 11/28/2009 HDL 67 01/18/2009 HDL 69 10/18/2008 LDL CHOLESTEROL, DIRECT 148 11/28/2009 LDL CHOLESTEROL, DIRECT 131 01/18/2009 LDL CHOLESTEROL, DIRECT 149 10/18/2008 TRIGLYCERIDE 131 11/28/2009 TRIGLYCERIDE 105 01/18/2009 TRIGLYCERIDE 115 10/18/2008 ALT 32 11/28/2009 AST 16 11/28/2009 Lab Results Component Value Date CREATININE 2.03 11/28/2009 BUN 18.0 11/28/2009 SODIUM 139 11/28/2009 POTASSIUM 3.6 11/28/2009 CHLORIDE 104 11/28/2009 CO2 22.0 11/28/2009 GFR 26 11/28/2009 Lab Results Component Value Date ALT 32 11/28/2009 AST 16 11/28/2009 ALKALINE PHOSPHATASE 102 11/28/2009 BILIRUBIN TOTAL 0.3 11/28/2009 Cardiovascular risk analysis - 68 y.o. female LDL goal is under 100. ROS: no side effects of medications, no chest pain on exertion, no dyspnea on ex ertion, no edema. New concerns: elevated blood pressure. Objective: BP 150/102 | Temp 99.5 F (37.5 C) | Wt 153 lb (69.4 kg) Appearance alert, well appearing, and in no distress. General exam BP noted to be mildly elevated today in office, S1, S2 normal, no g allop, no murmur, chest clear, no JVD, no HSM, no edema. Lab review: Labs reviewed, I note that lipids LDL result meets goal. Assessment: Hyperlipidemia poorly controlled. Hypertension Nevus sebaceous Plan: the following changes to treatment plan are made: diet, omega 3 2 per day, monit or BP reviewed medications and side effects in detail .increase omega 3 Cryo therapy documented in this encounter Plan of Treatment Not on filedocumented as of this encounter Visit Diagnoses Diagnosis Nevus sebaceous Other specified dermatoses Hyperlipidemia Other and unspecified hyperlipidemia documented in this encounter"
--- OUTSIDE RECORDS SUMMARY | 2019-08-19 16:13 | XMS REPORT | Encounter Summary ---
Author Author [facility] Organization [facility] Address Unknown Phone Unavailable Care Team Providers Care Art Model Name Role Phone Carlotta Aguayo MD PCP Unavailable Encounter Details Care Team Description Date Type Department Carlotta Aguayo MD NO ADDRESS ON FILE [facility], Lab Schedule 07/13/[address] [facility] General Encounter Laboratory Services [address] [address] Social History Date Tobacco Use Types Packs/Day Years Used Never Smoker Smokeless Tobacco: Never Used Drinks/Week oz/Week Comments Alcohol Use No Sex Assigned at Date Recorded Not on file documented as of this encounter Medications at Time of Discharge Start Date End Date Medication Sig Dispensed Refills 07/13/2010 10/20/2010 meloxicam (MOBIC) 7.5 mg Take [...] 5 Oral tabletIndications: mouth daily. Menopausal disorder 01/23/2010 08/04/2010 NIFEdipine SR 24 hour Take 1 Tab by 60 Tab 5 (PROCARDIA XL) 30 mg Oral mouth 2 times tablet daily. documented as of this encounter Plan of Treatment Not on filedocumented as of this encounter Procedures Comments Procedure Name Priority Date/Time Associated Diag nosis URIC ACID Stat 07/13/2010 Gout flare 8:22 AM CDT COMPREHENSIVE METABOLIC Stat 07/13/2010 Gout f lare PANEL 8:22 AM CDT documented in this encounter Results * URIC ACID (07/13/2010 8:22 AM CDT) URIC ACID 5.1Comment: ROBERTOKRISTA PORRAS 2.6 - 6.0 mg/dl [facility] ACCT#[id number], ,,,, [facility] [place] [facility] Specimen Blood specimen (specimen) Performing Organization Address City/State/Zipcode Ph one Number [facility] CLIA# [id number] KRISTA LAUREN [address] - [place] 401 [facility] CLIA# [id number] Jose De Jesus [place]UREN S [address] INDU LAB 401 [facility] * COMPREHENSIVE METABOLIC PANEL (07/13/2010 8:22 AM CDT) GLUCOSE 104 (H) 70 - 100 mg/dl [facility] INDU LAB BUN 19.0 7 - 20 mg/dl [facility] CREATININE 1.71 (H) 0.6 - 1.0 mg/dl [facility] BUN/CREAT RATIO 11.1 10 - 20 [facility] GFR 31 >60 ml/min [facility] [place] [facility] SODIUM 139 135 - 145 mmol/L [facility]DU LAB POTASSIUM 3.9 3.3 - 4.8 mmol/L [facility] CHLORIDE 106 98 - 107 mmol/L [facility] CO2 22.1 22 - 31 mmol/L [facility] ANION GAP 15 4 - 20 [facility] INDU LAB CALCIUM 8.5 8.5 - 10.1 mg/dl [facility] ALBUMIN 3.4 3.4 - 5.0 g/dl [facility] TOTAL PROTEIN 7.1 6.4 - 8.2 g/dl [facility] GLOBULIN (CALC) 3.7 [facility] ALBUMIN/GLOBULI 0.9 [facility] N RATIO [facility] [facility] BILIRUBIN TOTAL 0.2 <1.1 mg/dl [facility] [place] [facility] ALKALINE 115 50 - 136 IU/L [facility] PHOSPHATASE [facility] [facility] AST 13 10 - 40 IU/L [facility] [facility] ALT 34Comment: [facility] 25 - 70 IU/L [facility] ACCT#[id number], ,,,, [facility] [place] [facility] Specimen Blood specimen (specimen) Performing Organization Address City/State/Zipcode Ph one Number [facility] CLIA# [id number] KRISTA LAUREN [address] - [place] [address] [place] [address] CLIA# [id number] Jose De Jesus LAUREN [address] documented in this encounter Visit Diagnoses Diagnosis Gout flare Acute gouty arthropathy documented in this encounter
--- OUTSIDE RECORDS SUMMARY | 2019-08-19 16:13 | XMS REPORT | Encounter Summary ---
Author Author [facility] Organization [facility] Address Unknown Phone Unavailable Care Team Providers Care Universal Grinder Set Up Operator Name Role Phone Carlotta Aguayo MD PCP Unavailable Reason for Visit * Reason Onset Date Comments Medication Refill 09/15/2009 Encounter Details Care Team Description Date Type Department Radha Montaño 09/15/2009 Refill [facility] [address] [address] Social History Date Tobacco Use Types Packs/Day Years Used Never Smoker Drinks/Week oz/Week Comments Alcohol Use No Sex Assigned at Date Recorded Not on file documented as of this encounter Plan of Treatment Not on filedocumented as of this encounter Visit Diagnoses Not on filedocumented in this encounter
--- OUTSIDE RECORDS SUMMARY | 2019-08-19 16:13 | XMS REPORT | Encounter Summary ---
Author Author [facility] Organization [facility] Address Unknown Phone Unavailable Care Team Providers Care Drafter Commercial Name Role Phone Carlotta Aguayo MD PCP Unavailable Encounter Details Care Team Description Date Type Department Carlotta Aguayo MD NO ADDRESS ON FILE [facility], Lab Schedule 05/30/2010 Hospital [facility] General Encounter Laboratory Services [address] [address] Social History Date Tobacco Use Types Packs/Day Years Used Never Smoker Drinks/Week oz/Week Comments Alcohol Use No Sex Assigned at Date Recorded Not on file documented as of this encounter Medications at Time of Discharge Start Date End Date Medication Sig Dispensed Refills 08/08/2017 aspirin (BABY ASPIRIN) 81 Take 81 mg by 0 mg Oral Chew mouth every other day . 02/20/2010 08/31/2010 raloxifene (EVISTA) 60 mg Take 1 Tab by 30 Tab 5 Oral tabletIndications: mouth daily. Menopausal disorder 01/23/2010 08/04/2010 NIFEdipine SR 24 hour Take 1 Tab by 60 Tab 5 (PROCARDIA XL) 30 mg Oral mouth 2 times tablet daily. 06/02/2010 colchicine-probenecid Take 1 Tab by 0 (COLBENEMID) 0.5-500 mg mouth daily. Oral Tab Prn. documented as of this encounter Plan of Treatment Not on filedocumented as of this encounter Procedures Comments Procedure Name Priority Date/Time Associated Diag nosis URIC ACID Routine 05/30/2010 Gout 7:14 AM AIRLINE FLIGHT ATTENDANT LIPID PANEL Stat 05/30/2010 Pure hyperchole sterolemia 7:14 AM AIRLINE FLIGHT ATTENDANT COMPREHENSIVE METABOLIC Stat 05/30/2010 Pure h ypercholesterolemia PANEL 7:14 AM AIRLINE FLIGHT ATTENDANT documented in this encounter Results * URIC ACID (05/30/2010 7:14 AM AIRLINE FLIGHT ATTENDANT) Pathologist [facility] URIC ACID 9.6 (H)Comment: 2.6 - 6.0 mg/dl [facility] ACCT#[id number], ,,,, INDU LAB Specimen Blood specimen (specimen) Performing Organization Address City/State/Zipcode Ph one Number [facility] CLIA# [id number] KRISTA LAUREN [address] - [place] 401 [facility] CLIA# [id number] Jose De Jesus [place]UR[place] S [address] INDU LAB 401 [facility] [place] * COMPREHENSIVE METABOLIC PANEL (05/30/2010 7:14 AM AIRLINE FLIGHT ATTENDANT) [facility] GLUCOSE 96 70 - 100 mg/dl [facility] [place] [facility] BUN 21.0 (H) 7 - 20 mg/dl [facility] INDU LAB CREATININE 1.93 (H) 0.6 - 1.0 mg/dl [facility] [facility] BUN/CREAT RATIO 10.9 10 - 20 [facility] [facility] GFR 27 >60 ml/min [facility] [facility] SODIUM 139 135 - 145 mmol/L [facility] [facility] POTASSIUM 4.2 3.3 - 4.8 mmol/L [facility] [facility] CHLORIDE 104 98 - 107 mmol/L [facility] [facility] CO2 21.4 (L) 22 - 31 mmol/L [facility] [facility] ANION GAP 18 4 - 20 [facility] [facility] CALCIUM 9.6 8.5 - 10.1 mg/dl [facility] [facility] ALBUMIN 4.0 3.4 - 5.0 g/dl [facility] [facility] TOTAL PROTEIN 8.1 6.4 - 8.2 g/dl [facility] [facility] GLOBULIN (CALC) 4.1 [facility] [facility] ALBUMIN/GLOBULI 1.0 [facility] [place] [facility] BILIRUBIN TOTAL 0.4 <1.1 mg/dl [facility] [facility] ALKALINE 122 50 - 136 IU/L [facility] PHOSPHATASE [facility] [facility] AST 19 10 - 40 IU/L [facility] ALT 41Comment: ROBERTOCalKRISTA PORRAS 25 - 70 IU/L [facility] ACCT#[id number], ,,,, [facility] [place] [facility] Specimen Blood specimen (specimen) Performing Organization Address City/State/Zipcode Ph one Number [facility] CLIA# [id number] KRISTA LAUREN [address] - [place] [address] [place] [address] CLIA# [id number] [place] Jose De Jesus [place] [address] * LIPID PANEL (05/30/2010 7:14 AM AIRLINE FLIGHT ATTENDANT) Pathologist [facility] CHOLESTEROL 237 (H) 140 - 200 mg/dl [facility] TRIGLYCERIDE 97 0 - 199 mg/dl [facility] Comment: [facility] TRIGLYCERIDES NORMAL LESS THAN 150 mg/dl BORDERLINE HIGH 150 - 199 mg/dl HIGH 200 - 499 mg/dl VERY HIGH GREATER THAN OR = 500 mg/dl HDL 76 29 - 89 mg/dl [facility] LDL 143 (H) <130 mg/dl [facility] CHOLESTEROL, Comment: [facility] INDU LAB RISK CATEGORY LDL GOAL High risk: <100 mg/dl CHD or CHD risk equivalents (optional goal: <70 mg/dl) (10-year risk > 20%) Moderately high risk <130 mg/dl 2+ risk factors (10-year risk 10% to 20%) Moderate risk: <130 mg/dl 2+ risk factors (10-year risk < 10%) Lower risk: <160 mg/dl 0-1 risk factor ROBERTOKRISTA PORRSA ACCT#[id number], ,,,, Specimen Blood specimen (specimen) Performing Organization Address City/State/[facility] Ph one Number [facility] CLIA# [id number] KRISTA LAUREN [address] - [place] [address] [place] [address] JOHNATHONIA# [id number] Jose De Jesus LAUREN [address] documented in this encounter Visit Diagnoses Diagnosis Pure hypercholesterolemia Gout Gout, unspecified documented in this encounter
--- OUTSIDE RECORDS SUMMARY | 2019-08-19 16:13 | XMS REPORT | Encounter Summary ---
Author Author [facility] Organization [facility] Address Unknown Phone Unavailable Care Team Providers Care Saddle Stitching Machine Operator Name Role Phone Carlotta Aguayo MD PCP Unavailable Encounter Details Care Team Description Date Type Department Carlotta Aguayo MD NO ADDRESS ON FILE Pure Hypercholesterolemia (Primary Dx) 11/28/2009 Orders Only [facility] Primar y Care [place] [address] [place] [address] Social History Date Tobacco Use Types Packs/Day Years Used Never Smoker Drinks/Week oz/Week Comments Alcohol Use No Sex Assigned at Date Recorded Not on file documented as of this encounter Plan of Treatment Not on filedocumented as of this encounter Results * LIPID PANEL (05/30/2010 7:14 AM DOMESTIC HOUSEKEEPER) [facility] CHOLESTEROL 237 (H) 140 - 200 mg/dl [facility] TRIGLYCERIDE 97 0 - 199 mg/dl [facility] Comment: [facility] TRIGLYCERIDES NORMAL LESS THAN 150 mg/dl [facility] HIGH 150 - 199 mg/dl HIGH 200 - 499 mg/dl VERY HIGH GREATER THAN OR = 500 mg/dl HDL 76 29 - 89 mg/dl [facility] LDL 143 (H) <130 mg/dl [facility] CHOLESTEROL, Comment: [facility] IN[facility] LAB RISK CATEGORY LDL GOAL High risk: <100 mg/dl CHD or CHD risk equivalents (optional goal: <70 mg/dl) (10-year risk > 20%) Moderately high risk <130 mg/dl 2+ risk factors (10-year risk 10% to 20%) Moderate risk: <130 mg/dl 2+ risk factors (10-year risk < 10%) Lower risk: <160 mg/dl 0-1 risk factor KRISTA TONG ACCT#[id number], ,,,, Specimen Blood specimen (specimen) Performing Organization Address City/State/Zipcode Ph one Number [facility] CLIA# [id number] KRISTA LAUREN [address] - [place] [address] [place] [address] CLIA# [id number] Jose De Jesus LAUREN [address] * COMPREHENSIVE METABOLIC PANEL (05/30/2010 7:14 AM DOMESTIC HOUSEKEEPER) GLUCOSE 96 70 - 100 mg/dl [facility] BUN 21.0 (H) 7 - 20 mg/dl [facility] CREATININE 1.93 (H) 0.6 - 1.0 mg/dl [facility] BUN/CREAT RATIO 10.9 10 - 20 [facility] [facility] GFR 27 >60 ml/min [facility] SODIUM 139 135 - 145 mmol/L [facility] POTASSIUM 4.2 3.3 - 4.8 mmol/L [facility] CHLORIDE 104 98 - 107 mmol/L [facility] CO2 21.4 (L) 22 - 31 mmol/L [facility] ANION GAP 18 4 - 20 [facility] CALCIUM 9.6 8.5 - 10.1 mg/dl [facility] ALBUMIN 4.0 3.4 - 5.0 g/dl [facility] TOTAL PROTEIN 8.1 6.4 - 8.2 g/dl [facility] GLOBULIN (CALC) 4.1 [facility] ALBUMIN/GLOBULI 1.0 [facility] N RATIO [facility] LAB BILIRUBIN TOTAL 0.4 <1.1 mg/dl [facility] INDU LAB ALKALINE 122 50 - 136 IU/L [facility] PHOSPHATASE [facility] AST 19 10 - 40 IU/L [facility] ALT 41Comment: [facility] 25 - 70 IU/L [facility] ACCT#[id number], ,,,, [facility] [place] [facility] Specimen Blood specimen (specimen) Performing Organization Address City/State/Zipcode Ph one Number [facility] CLIA# [id number] KRISTA LAUREN [address] - [place] [address] [place] [address] [place] CLIA# [id number] Jose eD Jesus LAUREN [address] documented in this encounter Visit Diagnoses Diagnosis Pure hypercholesterolemia documented in this encounter
--- OUTSIDE RECORDS SUMMARY | 2019-08-19 16:13 | XMS REPORT | Encounter Summary ---
Author Author [facility] Organization [facility] Address Unknown Phone Unavailable Care Team Providers Care Physical Therapy Manager Name Role Phone Carlotta Aguayo MD PCP Unavailable Reason for Visit * Reason Onset Date Comments Medication Refill 10/21/2009 Encounter Details Care Team Description Date Type Department Self, Bradly Ayala MD [address] [place] [address] 10/21/2009 Refill [facility] Primar y Care [place] [address] [place] [address] Social History Date Tobacco Use Types Packs/Day Years Used Never Smoker Drinks/Week oz/Week Comments Alcohol Use No Sex Assigned at Date Recorded Not on file documented as of this encounter Plan of Treatment Not on filedocumented as of this encounter Visit Diagnoses Not on filedocumented in this encounter
--- OUTSIDE RECORDS SUMMARY | 2019-08-19 16:13 | XMS REPORT | Encounter Summary ---
Author Author [facility] Organization [facility] Address Unknown Phone Unavailable Care Team Providers Care County Director Welfare Name Role Phone Carlotta Aguayo MD PCP Unavailable Reason for Visit * Reason Onset Date Comments Medication Refill 01/23/2010 Encounter Details Care Team Description Date Type Department Carlotta Aguayo MD NO ADDRESS ON FILE 01/23/[address] [address] Social History Date Tobacco Use Types Packs/Day Years Used Never Smoker Drinks/Week oz/Week Comments Alcohol Use No Sex Assigned at Date Recorded Not on file documented as of this encounter Plan of Treatment Not on filedocumented as of this encounter Visit Diagnoses Not on filedocumented in this encounter
--- OUTSIDE RECORDS SUMMARY | 2019-08-19 16:13 | XMS REPORT | Encounter Summary ---
Author Author [facility] Organization [facility] Address Unknown Phone Unavailable Care Team Providers Care Telecommunication Systems Designer Name Role Phone Carlotta Aguayo MD PCP Unavailable Reason for Visit * Reason Comments Follow Up 6 wk Results lab Encounter Details Care Team Description Date Type Department Carlotta Aguayo MD NO ADDRESS ON FILE Knee pain; DA (degenerative arthritis); Hypertension 07/13/2010 Office Visit [address] [id number] Social History Date Tobacco Use Types Packs/Day Years Used Never Smoker Smokeless Tobacco: Never Used Drinks/Week oz/Week Comments Alcohol Use No Sex Assigned at Date Recorded Not on file documented as of this encounter Last Filed Vital Signs Reading Time Taken Comments Vital Sign 154/102 07/13/2010 9:26 AM CDT Blood Pressure - - Pulse - - Temperature - - Respiratory Rate - - Oxygen Saturation - - Inhaled Oxygen Concentration 73 kg (161 lb) 07/13/2010 9:26 AM CDT Weight 154.9 cm (5' 1") 07/13/2010 9:26 AM CDT Height 30.42 07/13/2010 9:26 AM CDT Body Mass Index documented in this encounter Progress Notes * Goyo Aguayo MD - 07/13/2010 9:56 AM CDT HISTORY OF PRESENT ILLNESS Era Viveros, a 69 y.o. female. HPI here today with L knee pain and history of degenerative arthritis. follow up hypertension and renal insufficiency. REVIEW OF SYSTEMS Review of Systems Constitutional: Negative for fever, chills and weight loss. HENT: Negative for nosebleeds, congestion, sore throat and ear discharge. Eyes: Negative. Respiratory: Negative for cough and shortness of breath. Cardiovascular: Negative for chest pain. Gastrointestinal: Negative for nausea, vomiting and diarrhea. Musculoskeletal: Positive for joint pain. Skin: Negative for rash. PHYSICAL EXAM BP 154/102 | Ht 5' 1" (1.549 m) | Wt 161 lb (73.029 kg) | BMI 30.42 kg/m2 Physical Exam Nursing note and vitals [...] Normal range of motion. She exhibits tenderness (L knee .wo red of effusion). Neurological: She is alert and oriented to person, place, and time. Skin: Skin is warm and dry. ASSESSMENT and PLAN: Encounter Diagnoses 1. Knee pain (719.46J) dexamethasone (DECADRON) 4 mg/mL Injection Soln, DEXAMET HASONE SODIUM PHOSPHATE 4 MG/ML INJECTION, methylPREDNISolone Acetate (DEPO-MEDR OL) 80 mg/mL Injection Susp, METHYLPREDNISOLONE ACETATE 80 MG/ML INJECTION, serna xicam (MOBIC) 7.5 mg Oral tablet 2. DA (degenerative arthritis) (715.90AZ) dexamethasone (DECADRON) 4 mg/mL Inje ction Soln, DEXAMETHASONE SODIUM PHOSPHATE 4 MG/ML INJECTION, methylPREDNISolone Acetate (DEPO-MEDROL) 80 mg/mL Injection Susp, METHYLPREDNISOLONE ACETATE 80 MG /ML INJECTION, meloxicam (MOBIC) 7.5 mg Oral tablet 3. Hypertension (401.9AJ) documented in this encounter Plan of Treatment Not on filedocumented as of this encounter Results * COMPREHENSIVE METABOLIC PANEL (08/17/2010 7:55 AM CDT) GLUCOSE 102 (H) 70 - 100 mg/dl [facility] BUN 23.0 (H) 7 - 20 mg/dl [facility] CREATININE 1.77 (H) 0.6 - 1.0 mg/dl [facility] BUN/CREAT RATIO 13.0 10 - 20 [facility] GFR 30 >60 ml/min [facility] SODIUM 143 135 - 145 mmol/L [facility] POTASSIUM 3.7 3.3 - 4.8 mmol/L [facility] CHLORIDE 109 (H) 98 - 107 mmol/L [facility] CO2 23.6 22 - 31 mmol/L [facility] ANION GAP 14 4 - 20 [facility] CALCIUM 8.8 8.5 - 10.1 mg/dl [facility] INDU LAB ALBUMIN 3.7 3.4 - 5.0 g/dl [facility] TOTAL PROTEIN 7.8 6.4 - 8.2 g/dl [facility] GLOBULIN (CALC) 4.1 [facility] ALBUMIN/GLOBULI 0.9 [facility] LAB BILIRUBIN TOTAL 0.3 <1.1 mg/dl [facility] ALKALINE 137 (H) 50 - 136 IU/L [facility] PHOSPHATASE [place] [place] [facility] AST 23 10 - 40 IU/L [facility] ALT 44Comment: ROBERTOKRISTA PORRAS 25 - 70 IU/L [facility] ACCT#[id number], ,,,, CENTER [facility] [facility] Specimen Blood specimen (specimen) Performing Organization Address City/State/Zipcode Ph one Number [facility] CLIA# [id number] KRISTA LAUREN [address] - [place] [address] [place] [address] CLIA# [id number] Jose De Jesus LAUREN S [address] documented in this encounter Visit Diagnoses Diagnosis Knee pain Pain in joint, lower leg DA (degenerative arthritis) Osteoarthrosis, unspecified whether gen eralized or localized, unspecified site Hypertension Unspecified essential hypertension documented in this encounter
--- OUTSIDE RECORDS SUMMARY | 2019-08-19 16:13 | XMS REPORT | Encounter Summary ---
Author Author [facility] Organization [facility] Address Unknown Phone Unavailable Care Team Providers Care Offender Job Retention Specialist Name Role Phone Carlotta Aguayo MD PCP Unavailable Encounter Details Care Team Description Date Type Department Carlotta Aguayo MD NO ADDRESS ON FILE [facility], Lab Schedule 11/28/2009 Hospital [facility] General Encounter Laboratory Services [address] [phone] Social History Date Tobacco Use Types Packs/Day Years Used Never Smoker Drinks/Week oz/Week Comments Alcohol Use No Sex Assigned at Date Recorded Not on file documented as of this encounter Medications at Time of Discharge Start Date End Date Medication Sig Dispensed Refills 06/02/2010 colchicine-probenecid Take 1 Tab by 0 (COLBENEMID) 0.5-500 mg mouth daily. Oral Tab Prn. 10/21/2009 01/23/2010 NIFEdipine SR 24 hour Take 1 Tab by 60 Tab 2 (PROCARDIA XL) 30 mg Oral mouth 2 times tablet daily. 08/17/2009 02/20/2010 raloxifene (EVISTA) 60 mg Take 1 Tab by 30 Tab 5 Oral tabletIndications: mouth daily. Menopausal disorder documented as of this encounter Plan of Treatment Not on filedocumented as of this encounter Procedures Comments Procedure Name Priority Date/Time Associated Diag nosis LIPID PANEL Stat 11/28/2009 HTN (Hypertensi on) 7:34 AM CDT COMPREHENSIVE METABOLIC Stat 11/28/2009 HTN (H ypertension) PANEL 7:34 AM CDT documented in this encounter Results * LIPID PANEL (11/28/2009 7:34 AM CDT) [facility] Signature CHOLESTEROL 233 (H) 140 - 200 mg/dl [facility] TRIGLYCERIDE 131 0 - 199 mg/dl [facility] Comment: [facility] REFERENCE RANGE - [facility] TRIGLYCERIDES NORMAL LESS THAN 150 mg/dl BORDERLINE HIGH 150 - 199 mg/dl HIGH 200 - 499 mg/dl VERY HIGH GREATER THAN OR = 500 mg/dl HDL 60 29 - 89 mg/dl [facility] LDL 148 (H) <130 mg/dl [facility] CHOLESTEROL, Comment: [facility] DIRECT INDU LAB RISK CATEGORY LDL GOAL High risk: <100 mg/dl CHD or CHD risk equivalents (optional goal: <70 mg/dl) (10-year risk > 20%) Moderately high risk <130 mg/dl 2+ risk factors (10-year risk 10% to 20%) Moderate risk: <130 mg/dl 2+ risk factors (10-year risk < 10%) Lower risk: <160 mg/dl 0-1 risk factor [facility] ACCT#[id number], ,,,, Specimen Blood specimen (specimen) Performing Organization Address City/State/[facility] Centercode Ph one Number [facility] CLIA# [id number] KRISTA LAUREN [address] - [place] [address] [facility] CLIA# [id number] Jose De Jesus LAUREN S [address] * COMPREHENSIVE METABOLIC PANEL (11/28/2009 7:34 AM CDT) GLUCOSE 104 (H) 70 - 100 mg/dl [facility] INDU LAB BUN 18.0 7 - 20 mg/dl [facility] CREATININE 2.03 (H) 0.6 - 1.0 mg/dl [facility] BUN/CREAT RATIO 8.9 (L) 10 - 20 [facility] INDU LAB GFR 26 >90 ml/min [facility] SODIUM 139 135 - 145 mmol/L [facility] POTASSIUM 3.6 3.3 - 4.8 mmol/L [facility] CHLORIDE 104 98 - 107 mmol/L [facility] CO2 22.0 22 - 31 mmol/L [facility] ANION GAP 17 4 - 20 [facility] CALCIUM 9.2 8.5 - 10.1 mg/dl [facility] ALBUMIN 3.6 3.4 - 5.0 g/dl [facility] TOTAL PROTEIN 7.6 6.4 - 8.2 g/dl [facility] GLOBULIN (CALC) 4.0 [facility] ALBUMIN/GLOBULI 0.9 [facility] BILIRUBIN TOTAL 0.3 <1.1 mg/dl [facility] ALKALINE 102 50 - 136 IU/L [facility] PHOSPHATASE [facility] AST 16 10 - 40 IU/L [facility] ALT 32Comment: KRISTA TONG 25 - 70 IU/L [facility] ACCT#[id number], ,,,, CENTER [facility] Specimen Blood specimen (specimen) Performing Organization Address City/State/Zipcode Ph one Number [facility] CLIA# [id number] KRISTA LAUREN [address] - [place] [address] [place] [address] CLIA# [id number] Jose De Jesus LAUREN S [address] documented in this encounter Visit Diagnoses Diagnosis HTN (hypertension) Unspecified essential hypertension documented in this encounter
--- OUTSIDE RECORDS SUMMARY | 2019-08-19 16:13 | XMS REPORT | Encounter Summary ---
Author Author [facility] Organization [facility] Address Unknown Phone Unavailable Care Team Providers Care Commercial Construction Estimator Name Role Phone Carlotta Aguayo MD PCP Unavailable Reason for Visit * Reason Onset Date Comments Erroneous 10/21/2009 encounter-disregard Encounter Details Care Team Description Date Type Department Carlotta Aguayo MD NO ADDRESS ON FILE Erroneous encounter-disregard 10/21/2009 Telephone [facility] Primar [address] [phone] Social History Date Tobacco Use Types Packs/Day Years Used Never Smoker Drinks/Week oz/Week Comments Alcohol Use No Sex Assigned at Date Recorded Not on file documented as of this encounter Plan of Treatment Not on filedocumented as of this encounter Visit Diagnoses Not on filedocumented in this encounter
--- OUTSIDE RECORDS SUMMARY | 2019-08-19 16:13 | XMS REPORT | Encounter Summary ---
Author Author [facility] Organization [facility] Address Unknown Phone Unavailable Care Team Providers Care Refrigerator Glazier Name Role Phone Carlotta Aguayo MD PCP Unavailable Reason for Referral * Outpatient Services (Routine) Referred By Contact Referred To Contact Status Reason Specialty Diagnoses / Procedures Carlotta Aguayo MD NO ADDRESS ON FILE [facility] Ultrasound [address] [place] [address] Closed Other Radiology Diagnoses Abdominal pain, generalized Renal insufficiency P rocedures US ABDOMEN COMPLETE Reason for Visit * Reason Comments Follow Up 1 mos Results lab Encounter Details Care Team Description Date Type Department Carlotta Aguayo MD NO ADDRESS ON FILE Abdominal pain, generalized; Renal insufficiency; Hypertension; DA (degenerative arthritis) 08/17/2010 Office Visit [facility] [address] [place] [address] Social History Date Tobacco Use Types Packs/Day Years Used Never Smoker Smokeless Tobacco: Never Used Drinks/Week oz/Week Comments Alcohol Use No Sex Assigned at Date Recorded Not on file documented as of this encounter Last Filed Vital Signs Reading Time Taken Comments Vital Sign 130/100 08/17/2010 8:49 AM CDT Blood Pressure - - Pulse - - Temperature - - Respiratory Rate - - Oxygen Saturation - - Inhaled Oxygen Concentration 72.8 kg (160 lb 8 oz) 08/17/2010 8:49 AM CDT Weight 154.9 cm (5' 1") 08/17/2010 8:49 AM CDT Height 30.33 08/17/2010 8:49 AM CDT Body Mass Index documented in this encounter Progress Notes * Diana Mclean - 08/17/2010 3:43 PM CDT Addended by: DIANA MCLEAN on: 08/17/2010 Modules accepted: Orders * Goyo Aguayo MD - 08/17/2010 9:00 AM CDT HISTORY OF PRESENT ILLNESS Era Viveros, a 69 y.o. female. HPI here in follow up hypertension and increasing vague abdominal pain. Underly ing renal insufficiency. REVIEW OF SYSTEMS Review of Systems Constitutional: Negative for fever, chills and weight loss. HENT: Negative for nosebleeds, congestion, sore throat and ear discharge. Eyes: Negative. Respiratory: Negative for cough and shortness of breath. Cardiovascular: Negative for chest pain. Gastrointestinal: Positive for abdominal pain. Negative for nausea, vomiting, di arrhea, constipation, blood in stool and melena. Skin: Negative for rash. PHYSICAL EXAM BP 130/100 | Ht 5' 1" (1.549 m) | Wt 160 lb 8 oz (72.802 kg) | BMI 30.33 kg/m2 Physical Exam Nursing note and vitals [...] dry. ASSESSMENT and PLAN: Encounter Diagnoses 1. Abdominal pain, generalized (789.07) US ABDOMEN COMPLETE 2. Renal insufficiency (593.9CV) US ABDOMEN COMPLETE 3. Hypertension (401.9AJ) 4. DA (degenerative arthritis) (715.90AZ) The current medical regimen is effective; continue present plan and medication s. documented in this encounter Plan of Treatment Not on filedocumented as of this encounter Results * COMPREHENSIVE METABOLIC PANEL (10/17/2010 7:22 AM CDT) GLUCOSE 112 (H) 70 - 100 mg/dl [facility] BUN 18.0 7 - 20 mg/dl [facility] CREATININE 1.94 (H) 0.6 - 1.0 mg/dl [facility] BUN/CREAT RATIO 9.3 (L) 10 - 20 [facility] GFR 27 >60 ml/min [facility] SODIUM 140 135 - 145 mmol/L [facility] POTASSIUM 4.0 3.3 - 4.8 mmol/L [facility] CHLORIDE 108 (H) 98 - 107 mmol/L [facility] CO2 21.7 (L) 22 - 31 mmol/L [facility] ANION GAP 14 4 - 20 [facility] CALCIUM 9.1 8.5 - 10.1 mg/dl [facility] ALBUMIN 3.8 3.4 - 5.0 g/dl [facility] TOTAL PROTEIN 7.7 6.4 - 8.2 g/dl [facility] GLOBULIN (CALC) 3.9 [facility] ALBUMIN/GLOBULI 1.0 [facility] BILIRUBIN TOTAL 0.4 <1.1 mg/dl [facility] ALKALINE 123 50 - 136 IU/L [facility] PHOSPHATASE [facility] AST 19 10 - 40 IU/L [facility] ALT 39Comment: [facility]ITAL[facility]ad[facility] 25 - 70 IU/L [facility] ACCT#[id number], ,,,, CENTER [facility] Specimen Blood specimen (specimen) Performing Organization Address City/State/Zipcode Ph one Number [facility] CLIA# [id number] KRISTA LAUREN [address] - [place] [address] [place] [address] [place] PINON# [id number] Jose De Jesus LAUREN [address] * US ABDOMEN COMPLETE (08/21/2010 8:36 AM [...] Unspecified disorder of kidney and uret er Hypertension Unspecified essential hypertension DA (degenerative arthritis) Osteoarthrosis, unspecified whether gen eralized or localized, unspecified site documented in this encounter
--- OUTSIDE RECORDS SUMMARY | 2019-08-19 16:13 | XMS REPORT | Encounter Summary ---
Author Author [facility] Organization [facility] Address Unknown Phone Unavailable Care Team Providers Care Chart Collector Name Role Phone Carlotta Aguayo MD PCP Unavailable Reason for Visit * Reason Onset Date Comments Medication Refill 08/17/2009 Encounter Details Care Team Description Date Type Department Carlotta Aguayo MD NO ADDRESS ON FILE Menopausal Disorder (Primary Dx) 08/17/[address] [address] Social History Date Tobacco Use [...]
--- OUTSIDE RECORDS SUMMARY | 2019-08-19 16:13 | XMS REPORT | Encounter Summary ---
Author Author [facility] Organization [facility] Address Unknown Phone Unavailable Care Team Providers Care Publicity Person Name Role Phone Carlotta Aguayo MD PCP Unavailable Reason for Visit * Reason Onset Date Comments Medication Refill 06/02/2010 Encounter Details Care Team Description Date Type Department Radha Montaño 06/02/2010 Refill [facility] [address] [address] Social History Date Tobacco Use Types Packs/Day Years Used Never Smoker Drinks/Week oz/Week Comments Alcohol Use No Sex Assigned at Date Recorded Not on file documented as of this encounter Plan of Treatment Not on filedocumented as of this encounter Visit Diagnoses Not on filedocumented in this encounter
--- OUTSIDE RECORDS SUMMARY | 2019-08-19 16:13 | XMS REPORT | Encounter Summary ---
Author Author [facility] Organization [facility] Address Unknown Phone Unavailable Care Team Providers Care Gas Tender Name Role Phone Carlotta Aguayo MD PCP Unavailable Reason for Visit * Reason Onset Date Comments Medication Refill 02/20/2010 Encounter Details Care Team Description Date Type Department Carlotta Aguayo MD NO ADDRESS ON FILE Menopausal disorder (Primary Dx) 02/20/[address] [address] Social History Date Tobacco [...]
--- OUTSIDE RECORDS SUMMARY | 2019-08-19 16:13 | XMS REPORT | Encounter Summary ---
Author Author [facility] Organization [facility] Address Unknown Phone Unavailable Care Team Providers Care Seater Grinder Name Role Phone Carlotta Aguayo MD PCP Unavailable Encounter Details Care Team Description Date Type Department Carlotta Aguayo MD NO ADDRESS ON FILE HTN (Hypertension) (Primary Dx) 11/28/2009 Orders Only [facility] Primar y Care [place] [address] [place] [address] Social History Date Tobacco Use Types Packs/Day Years Used Never Smoker Drinks/Week oz/Week Comments Alcohol Use No Sex Assigned at Date Recorded Not on file documented as of this encounter Plan of Treatment Not on filedocumented as of this encounter Results * LIPID PANEL (11/28/2009 7:34 AM CDT) CHOLESTEROL 233 (H) 140 - 200 mg/dl [facility] TRIGLYCERIDE 131 0 - 199 mg/dl [facility] Comment: [facility] REFERENCE RANGE - [facility] TRIGLYCERIDES NORMAL LESS THAN 150 mg/dl [facility] HIGH 150 - 199 mg/dl HIGH 200 - 499 mg/dl VERY HIGH GREATER THAN OR = 500 mg/dl HDL 60 29 - 89 mg/dl [facility] LDL 148 (H) <130 mg/dl [facility] CHOLESTEROL, Comment: [facility] LAB RISK CATEGORY LDL GOAL High risk: <100 mg/dl CHD or CHD risk equivalents (optional goal: <70 mg/dl) (10-year risk > 20%) Moderately high risk <130 mg/dl 2+ risk factors (10-year risk 10% to 20%) Moderate risk: <130 mg/dl 2+ risk factors (10-year risk < 10%) Lower risk: <160 mg/dl 0-1 risk factor KRISTA TONG ACCT#[id number], ,,,, Specimen Blood specimen (specimen) Performing Organization Address City/State/[facility] Centercoid Ph one Number [facility] CLIA# [id number] KRISTA LAUREN [address] - [place] [address] [place] [address] [place]# [id number] Jose De Jesus LAUREN [address] * COMPREHENSIVE METABOLIC PANEL (11/28/2009 7:34 AM CDT) GLUCOSE 104 (H) 70 - 100 mg/dl [facility] INDU LAB BUN 18.0 7 - 20 mg/dl [facility] CREATININE 2.03 (H) 0.6 - 1.0 mg/dl [facility] LAB BUN/CREAT RATIO 8.9 (L) 10 - 20 [facility] GFR 26 >90 ml/min [facility] SODIUM 139 135 - 145 mmol/L [facility] INDU LAB POTASSIUM 3.6 3.3 - 4.8 mmol/L [facility] CHLORIDE 104 98 - 107 mmol/L [facility] LAB CO2 22.0 22 - 31 mmol/L [facility] LAB ANION GAP 17 4 - 20 [facility] LAB CALCIUM 9.2 8.5 - 10.1 mg/dl [facility] ALBUMIN 3.6 3.4 - 5.0 g/dl [facility] TOTAL PROTEIN 7.6 6.4 - 8.2 g/dl [facility] LAB GLOBULIN (CALC) 4.0 [facility] ALBUMIN/GLOBULI 0.9 [facility] N RATIO HAYES [facility] LAB BILIRUBIN TOTAL 0.3 <1.1 mg/dl [facility] ALKALINE 102 50 - 136 IU/L [facility] PHOSPHATASE HAYES [facility] LAB AST 16 10 - 40 IU/L [facility] LAB ALT 32Comment: [facility]IT[facility]OR[facility] 25 - 70 IU/L [facility] ACCT#[id number], ,,,, CENTER [facility] Specimen Blood specimen (specimen) Performing Organization Address City/State/Zipcode Ph one Number [facility] CLIA# [id number] KRISTA LAUREN [address] - [place] [address] [place] [address] CLIA# [id number] Jose De Jesus LAUREN S [address] documented in this encounter Visit Diagnoses Diagnosis HTN (hypertension) Unspecified essential hypertension documented in this encounter
--- OUTSIDE RECORDS SUMMARY | 2019-08-19 16:13 | XMS REPORT | Encounter Summary ---
Author Author [facility] Organization [facility] Address Unknown Phone Unavailable Care Team Providers Care Cloth Mercerizer Operator Name Role Phone Carlotta Aguayo MD PCP Unavailable Encounter Details Care Team Description Date Type Department Carlotta Aguayo MD NO ADDRESS ON FILE Gout flare (Primary Dx) 06/02/2010 Orders Only [facility] Primar y Care [place] [address] [place] [address] Social History Date Tobacco Use Types Packs/Day Years Used Never Smoker Drinks/Week oz/Week Comments Alcohol Use No Sex Assigned at Date Recorded Not on file documented as of this encounter Plan of Treatment Not on filedocumented as of this encounter Results * URIC ACID (07/13/2010 8:22 AM CDT) URIC ACID 5.1Comment: [place] 2.6 - 6.0 mg/dl [facility] ACCT#[id number], ,,,, CENTER [place] LAB Specimen Blood specimen (specimen) Performing Organization Address City/[facility] Centercotx Ph one Number [facility] CLIA# [id number] [place] [address] - [place] [address] [facility] STATIONIA# [id number] [place] [facility] [address] * COMPREHENSIVE METABOLIC PANEL (07/13/2010 8:22 AM CDT) GLUCOSE 104 (H) 70 - 100 mg/dl [facility] LAB BUN 19.0 7 - 20 mg/dl [facility] LAB CREATININE 1.71 (H) 0.6 - 1.0 mg/dl [facility] BUN/CREAT RATIO 11.1 10 - 20 [facility] GFR 31 >60 ml/min [facility] SODIUM 139 135 - 145 mmol/L [facility] POTASSIUM 3.9 3.3 - 4.8 mmol/L [facility] CHLORIDE 106 98 - 107 mmol/L [facility] CO2 22.1 22 - 31 mmol/L [facility] ANION GAP 15 4 - 20 [facility] CALCIUM 8.5 8.5 - 10.1 mg/dl [facility] ALBUMIN 3.4 3.4 - 5.0 g/dl [facility] TOTAL PROTEIN 7.1 6.4 - 8.2 g/dl [facility] GLOBULIN (CALC) 3.7 [facility] ALBUMIN/GLOBULI 0.9 [facility] BILIRUBIN TOTAL 0.2 <1.1 mg/dl [facility] ALKALINE 115 50 - 136 IU/L [facility] PHOSPHATASE [facility] [facility] AST 13 10 - 40 IU/L [facility] ALT 34Comment: ROBERTOKRISTA PORRAS 25 - 70 IU/L [facility] ACCT#[id number], ,,,, CENTER [facility] [facility] Specimen Blood specimen (specimen) Performing Organization Address City/State/Zipcode Ph one Number [facility] CLIA# [id number] KRISTA LAUREN [address] - [place] [address] [place] [address] [place] CLIA# [id number] Jose De Jesus LAUREN [address] documented in this encounter Visit Diagnoses Diagnosis Gout flare Acute gouty arthropathy documented in this encounter
--- OUTSIDE RECORDS SUMMARY | 2019-08-19 16:13 | XMS REPORT | Encounter Summary ---
Author Author [facility] Organization [facility] Address Unknown Phone Unavailable Care Team Providers Care Electro Mechanical Technician Name Role Phone Carlotta Aguayo MD PCP Unavailable Reason for Visit * Reason Onset Date Comments Medication Refill 06/15/2009 Encounter Details Care Team Description Date Type Department Carlotta Aguayo MD NO ADDRESS ON FILE 06/15/[address] [address] Social History Date Tobacco Use Types Packs/Day Years Used Never Smoker Drinks/Week oz/Week Comments Alcohol Use No Sex Assigned at Date Recorded Not on file documented as of this encounter Plan of Treatment Not on filedocumented as of this encounter Visit Diagnoses Not on filedocumented in this encounter
--- OUTSIDE RECORDS SUMMARY | 2019-08-19 16:13 | XMS REPORT | Encounter Summary ---
Author Author [facility] Organization [facility] Address Unknown Phone Unavailable Care Team Providers Care Automotive Mechanical Engineer Name Role Phone Carlotta Aguayo MD PCP Unavailable Reason for Visit * Reason Onset Date Comments Medication Refill 08/04/2010 Encounter Details Care Team Description Date Type Department Carlotta Aguayo MD NO ADDRESS ON FILE 08/04/[address] [address] Social History Date Tobacco Use Types Packs/Day Years Used Never Smoker Smokeless Tobacco: Never Used Drinks/Week oz/Week Comments Alcohol Use No Sex Assigned at Date Recorded Not on file documented as of this encounter Plan of Treatment Not on filedocumented as of this encounter Visit Diagnoses Not on filedocumented in this encounter
--- OUTSIDE RECORDS SUMMARY | 2019-08-19 16:14 | XMS REPORT | Encounter Summary ---
Author Author [facility] Organization [facility] Address Unknown Phone Unavailable Care Team Providers Care Switchboard Clerk Name Role Phone Carlotta Aguayo MD PCP Unavailable Reason for Visit * Auth/Cert Referred By Contact Referred To Contact Status Reason Specialty Diagnoses / Procedures [facility] Operating Room [address] [place] [address] Closed Diagnoses colonoscopy P rocedures COLONOSCOPY Encounter Details Care Team Description Date Type Department Vandana Rosen MD NO ADDRESS ON FILE COLONOSCOPY 04/29/2009 Surgery [facility] Operating Room [address] [place] [address] Social History Date Tobacco Use Types Packs/Day Years Used Never Smoker Drinks/Week oz/Week Comments Alcohol Use No Sex Assigned at Date Recorded Not on file documented as of this encounter Last Filed Vital Signs Reading Time Taken Comments Vital Sign 120/68 04/29/2009 10:15 AM TENON MACHINE OPERATOR Blood Pressure 79 04/29/2009 10:15 AM TENON MACHINE OPERATOR Pulse 36.4 C (97.5 F) 04/29/2009 8:45 AM TENON MACHINE OPERATOR Temperature 20 04/29/2009 10:15 AM TENON MACHINE OPERATOR Respiratory Rate - - Oxygen Saturation - - Inhaled Oxygen Concentration 67.1 kg (148 lb) 04/29/2009 8:45 AM TENON MACHINE OPERATOR Weight 157.5 cm (5' 2") 04/29/2009 8:45 AM TENON MACHINE OPERATOR Height 27.07 04/29/2009 8:45 AM TENON MACHINE OPERATOR Body Mass Index documented in this encounter Discharge Instructions * Patient Instructions* Sidra Begum Physician - 05/02/2009 12:38 PM TENON MACHINE OPERATOR * Additional Instructions* Mireya Gold RN - 04/29/2009 1. Call office, , for any questions. Office hours are 8 am to 5 pm Saturday to , and 8 am to 12 noon on Saturday. 2. Follow up with Dr. Rosen in 5 days. 3. May take MOM 30 ml at bedtime for constipation. 4. Avoid Aspirin or Aspirin-containing products for at least 3 days. 5. May take Tylenol 500 mg to 1000 mg every 6 hours as needed for mild pain. FOLLOW-UP Follow up with Dr. Rosen on Monday, May 04, 2009 at 2:30 PM. ACTIVITY It is essential that someone [...] has been planned according to the mo current medical practices available, unavoidable complications occasionally [...] and reduce the bloated feeling in your abdo men (belly). No driving for 24 hours (because of the anesthesia (medicine) used during the st). You may shower. Do not sign any important legal documents or operate any machinery for 24 hours (because of the anesthesia used during the test). NUTRITION Drink plenty of fluids. You may resume your normal diet as instructed by your doctor. Begin with a light meal and progress to your normal diet. Heavy or fried foods a re harder to digest and may make you [...] that is severe or gets worse throughout day. ExitCare Patient Information 2006 [employer]. * Attachments The following attachments cannot be sent through Care Everywhere.* COLON POLYPS: AFTER YOUR VISIT (AZERI) documented in this encounter Medications at Time of Discharge Start Date End Date Medication Sig Dispensed Refills 09/15/2009 colchicine-probenecid Take 1 Tab by 0 (COLBENEMID) 0.5-500 mg mouth daily. Oral Tab 03/30/2009 10/21/2009 NIFEdipine SR 24 hour Take 1 Tab by 60 Tab 5 (PROCARDIA XL) 30 mg Oral mouth 2 times tablet daily. 02/02/2009 08/17/2009 raloxifene (EVISTA) 60 mg Take 1 Tab by 30 Tab 5 Oral TabIndications: mouth daily. Menopausal disorder documented as of this encounter H&P Notes * Aok Scanning, Sidra Physician - 05/03/2009 12:19 PM TENON MACHINE OPERATOR * Vandana Rosen MD - 04/29/2009 9:18 AM TENON MACHINE OPERATOR No interval change. Will proceed with colonoscopy. N MACHINE OPERATOR documented in this encounter OR Notes * OR Anesthesia - Aok Scanning, Sidra Physician - 05/02/2009 12:38 PM TENON MACHINE OPERATOR * Operative Report - Vandana Rosen MD - 04/29/2009 9:58 AM TENON MACHINE OPERATOR Colonoscopy Procedure Note Procedure: Colonoscopy --diagnostic Pre-operative Diagnosis: Constipation Post-operative Diagnosis: Polyps at 15 cm and 50 cm. Rare diverticulum in ascen ding colon Indications: constipation Sedation: Demerol 50 mg IV, Versed 4 mg IV Pre-Procedure Physical: Current hospital medications Medication Dose Route Frequency Provider Last Rate Last Dose sodium chloride 0.9 % flush injection 3 mL 3 mL IV See Admin Notes Vandana medina MD Last Dose: 3 mL at 04/29/09 0906 Other drug, Allopurinol and Indomethacin BP 138/90 | Pulse 96 | Temp(Src) 97.5 F (36.4 C) (Tympanic) | Resp 20 | Ht 5 ' 2" (1.575 m) | Wt 148 lb (67.132 kg) | LMP Postmenopausal Airway: normal Heart: normal S1 and S2 [...] below. Ap propriate photodocumentation was obtained. Findings: -polyp(s) - #1, 4 mm in size, located in 15 cm from anal verge, removed by cold biopsy and sent for pathology, - #2, 2 mm in size, located in 50 cm from anal ve rge, removed by cold biopsy and sent for pathology -single diverticulum in ascending colon Specimens: polyps at 15 cm and 50 cm, mucosa biopsy of ileocecal valve and 60 cm Complications: None; patient tolerated the procedure well. Impression: -See post-procedure diagnoses. Recommendations: -Await pathology., -If adenoma is present, repeat colonoscopy in 3 years., -Foll ow up with me. N MACHINE OPERATOR documented in this encounter Miscellaneous Notes * Scanned Form - Aok Scanning, [facility] Physician - 05/02/2009 12:38 PM TENON MACHINE OPERATOR * Scanned Form - Aok Scanning, [facility] Physician - 05/02/2009 12:06 PM TENON MACHINE OPERATOR documented in this encounter Plan of Treatment Not on filedocumented as of this encounter Procedures Comments Procedure Name Priority Date/Time Associated Diag nosis COLONOSCOPY 04/29/2009 4:18 PM TENON MACHINE OPERATOR PATHOLOGY Routine 04/29/2009 1:37 PM TENON MACHINE OPERATOR documented in this encounter Results * PATHOLOGY (04/29/2009 1:37 PM TENON MACHINE OPERATOR) SURGICAL Name: PAIGEERASHIRLEY Jacobs PATHOLOGY : PATHOLOGY 40 Location: [facility] Sex: F Unit#: [id number] Room/Bed: [facility] PRE-6 Att: Vandana Crane M.D. RECD: 04/29/09 PROCEDURE DATE: 04/29/09 [facility] [address]: Vandana Rosen M.D. [facility] DR: ICD CODES: 211.3 ICD CODES: 569.89 ICD CODES: 569.9 PROCEDURES: [id number] LOCATION: [facility] PATIENT MATERIAL SUBMITTED A) Biopsy of polyp at 15 cm. B) Biopsy of ileocecal valve mucosa. C) Biopsy of mucosa at 60 cm. D) Biopsy of polyp at 50 cm. CLINICAL HISTORY: Constipation, screening. Procedure: Colonoscopy. Technical component performed at [facility], [address] [place] [address]. GROSS DESCRIPTION The specimen is received in four parts. A) Part A labeled 15 cm biopsy polyp. Received in formalin are five fragments of phillips tissue ranging from 0.2x0.1x0.1 cm up to 0.3x0.3x0.2 cm. Submitted in toto in one cassette. B) Part B is labeled ileocecal valve mucosal biopsy. Received in formalin is a fragment of phillips tissue measuring 0.2x0.2x0.2 cm. Submitted in toto in one cassette. C) Part C is labeled mucosal biopsy 60 cm. Received in formalin is a fragment of phillips tissue measuring 0.5x0.1x0.1 cm. Submitted in toto in one cassette. D) Part D is labeled 50 cm polyp biopsy. Received in formalin are four fragments of phillips to white tissue ranging from less than 0.1 cm up to 0.2x0.2x0.1 cm. Submitted in toto in one cassette. Dictated by:Haley Lorenzo,S. V. TD:04/29/09 0170 [id number] MICROSCOPIC DESCRIPTION A) Microscopic examination shows multiple fragments of colonic mucosa. Most of the epithelium is adenomatous with tubular architecture. There are some crypts showing stellate to serrated borders with decreased numbers of goblet cells in the epithelium. Malignancy is not identified. B) Microscopic examination shows a fragment of colonic mucosa. It does have some reactive change although there is no active colitis or evidence of chronic disease. The amount of CONTINUED ON NEXT PAGE Specimen # [id number] ERA GIBSON (Continued) MICROSCOPIC DESCRIPTION (Continued) lymphoplasmacytic inflammation in the lamina propria appears appropriate for the anatomic site. A submucosal lymphoid nodule is noted. C) Microscopic examination shows a fragment of colonic mucosa. There is normal architecture. Colitis is not identified. D) Microscopic examination shows two fragments of colonic mucosa. Portions of the epithelium are adenomatous with tubular architecture. There is no malignancy. Dictated by:Med Su MD TD:05/02/09 - 1138 [facility] FINAL DIAGNOSIS A) Colon, 15 cm, biopsies: 1. Tubular adenoma. 2. Hyperplastic polyp. B) Colon, ileocecal valve, biopsy: Submucosal lymphoid nodule. C) Colon, 60 cm, biopsy: No significant pathologic change identified. D) Colon, 50 cm, biopsy: Tubular adenoma. Dictated by: Med Su MD TD:05/02/09 - 1140 [facility] Signed (electronic signature) Med Su M.D. 05/02/092026 END OF REPORT Comment: , ,,,, Specimen Specimen of unknown material (specimen) Performing Organization Address City/State/Zipcode Ph one Number [facility] CLIA# [id number] [place], [place] [address] [facility], [facility] [address] [place] [address] documented in this encounter Visit Diagnoses Not on filedocumented in this encounter Administered Medications Action Date Dose Rate Site Medication Order MAR Action 04/29/2009 10:36 AM TENON MACHINE OPERATOR 4 mg ondansetron (ZOFRAN) 4 mg/2 mL injection Given 4-8 mg 4-8 mg, IV, EVERY 6 HOURS PRN, Starting Sat04/29/09 at 1027, Until Sat04/29/09 at 1523, Nausea/Emesis, Routine 04/29/2009 10:36 AM TENON MACHINE OPERATOR 3 mL sodium chloride 0.9 % flush injection 3 Given mL 3 mL, IV, SEE ADMIN INSTRUCTIONS, Starting Sat04/29/09 at 0839, Until Sat04/29/09 at 1523, Routine 3 mL Given 04/29/2009 9:06 AM TENON MACHINE OPERATOR documented in this encounter
--- OUTSIDE RECORDS SUMMARY | 2019-08-19 16:14 | XMS REPORT | Encounter Summary ---
Author Author [facility] Organization [facility] Address Unknown Phone Unavailable Care Team Providers Care Nephrology Nurse Name Role Phone Carlotta Aguayo MD PCP Unavailable Reason for Visit * Reason Onset Date Comments Medication Refill 12/09/2008 Encounter Details Care Team Description Date Type Department Carlotta Aguayo MD NO ADDRESS ON FILE 12/09/[address] [address] Social History Date Tobacco Use Types Packs/Day Years Used Never Smoker Drinks/Week oz/Week Comments Alcohol Use No Sex Assigned at Date Recorded Not on file documented as of this encounter Plan of Treatment Not on filedocumented as of this encounter Visit Diagnoses Not on filedocumented in this encounter
--- OUTSIDE RECORDS SUMMARY | 2019-08-19 16:14 | XMS REPORT | Encounter Summary ---
Author Author [facility] Organization [facility] Address Unknown Phone Unavailable Care Team Providers Care Lease Administration Supervisor Name Role Phone Carlotta Aguayo MD PCP Unavailable Reason for Visit * Reason Comments Follow Up 8wk Results lab Other discuss bone density test Chest Congestion x3 wk Cough Encounter Details Care Team Description Date Type Department Carlotta Aguayo MD NO ADDRESS ON FILE Acute URI; Acute Bronchitis; Allergy; Gouty Arthropathy 07/20/2008 Office Visit [facility] [address] [address] Social History Date Tobacco Use Types Packs/Day Years Used Never Smoker Drinks/Week oz/Week Comments Alcohol Use No Sex Assigned at Date Recorded Not on file documented as of this encounter Last Filed Vital Signs Reading Time Taken Comments Vital Sign 154/100 07/20/2008 2:59 PM CDT Blood Pressure - - Pulse 37.7 C (99.8 F) 07/20/2008 2:59 PM CDT Temperature - - Respiratory Rate - - Oxygen Saturation - - Inhaled Oxygen Concentration 64.9 kg (143 lb) 07/20/2008 2:59 PM CDT Weight - - Height - - Body Mass Index documented in this encounter Progress Notes * Goyo Aguayo MD - 07/24/2008 1:11 AM CDT Problem: URI/Bronchitis SUBJECTIVE: Increasing cough and upper airway congestion with associated sore t hroat. No fever or respiratory distress. Difficulty resting and activities of daily life. Multiple joint pain in feet if does not take colchicine, unable to tolerate allopurinol OBJECTIVE: VSS, afebrile HENT-Ears with tms retracted. Throat and pharynx erythema. Neck supple. No adenopathy or masses in the neck or supraclavicular regions. Sinuses non- tender. Positive post-nasal drainage. Lungs-Chest is clear, no wheezing or rales. Normal symmetric air entry thro ughout both lung grant. No chest wall deformities or tenderness. CV-S1 and S2 normal, no murmurs, clicks, gallops or rubs. Regular rate and rhythm. Abdomen-The abdomen is soft without tenderness, guarding, mass, rebound or organomegaly. Bowel sounds are normal. No CVA tenderness or inguinal adenopathy noted. Extremities- FROM, no edema, non-tender, no joint pain today Skin- clear without rash Neuro- alert, oriented ASSESSMENT: as above PLAN: fluids, rest, decongestant, continue colchicine documented in this encounter Plan of Treatment Not on filedocumented as of this encounter Visit Diagnoses Diagnosis Acute URI Acute upper respiratory infections of u nspecified site Acute bronchitis Allergy Allergy, unspecified not elsewhere clas sified Gouty arthropathy documented in this encounter
--- OUTSIDE RECORDS SUMMARY | 2019-08-19 16:14 | XMS REPORT | Encounter Summary ---
Author Author [facility] Organization [facility] Address Unknown Phone Unavailable Care Team Providers Care Supervisory Historian Name Role Phone Carlotta Aguayo MD PCP Unavailable Reason for Visit * Reason Onset Date Comments Medication Refill 03/30/2009 Encounter Details Care Team Description Date Type Department Carlotta Aguayo MD NO ADDRESS ON FILE 03/30/[address] [address] Social History Date Tobacco Use Types Packs/Day Years Used Never Smoker Drinks/Week oz/Week Comments Alcohol Use No Sex Assigned at Date Recorded Not on file documented as of this encounter Plan of Treatment Not on filedocumented as of this encounter Visit Diagnoses Not on filedocumented in this encounter
--- OUTSIDE RECORDS SUMMARY | 2019-08-19 16:14 | XMS REPORT | Encounter Summary ---
Author Author [facility] Organization [facility] Address Unknown Phone Unavailable Care Team Providers Care Squeegeer And Former Name Role Phone Carlotta Aguayo MD PCP Unavailable Encounter Details Care Team Description Date Type Department Carlotta Aguayo MD NO ADDRESS ON FILE [facility], Lab Schedule 07/19/2008 Hospital [facility] General Encounter Laboratory Services [address] [address] Social History Date Tobacco Use Types Packs/Day Years Used Never Smoker Drinks/Week oz/Week Comments Alcohol Use No Sex Assigned at Date Recorded Not on file documented as of this encounter Medications at Time of Discharge Start Date End Date Medication Sig Dispensed Refills 05/25/2008 02/02/2009 raloxifene (EVISTA) 60 mg Take 1 Tab by 30 Tab 5 Oral TabIndications: mouth daily. Menopausal disorder 04/30/2008 12/09/2008 COLCHICINE/PROBENECID Take 1 Tab by 60 Tab 3 (COLCHICINE-PROBENECID) mouth 2 times 0.5-500 mg Oral Tab daily. 09/02/2008 PROCARDIA XL 30 mg Oral Take 30 mg by 0 TO24 mouth daily. documented as of this encounter Plan of Treatment Not on filedocumented as of this encounter Procedures Comments Procedure Name Priority Date/Time Associated Diag nosis CBC WITHOUT DIFFERENTIAL Routine 07/19/2008 Foot Pain 7:29 AM CDT URIC ACID Routine 07/19/2008 Foot Pain 7:29 AM CDT COMPREHENSIVE METABOLIC Routine 07/19/2008 Foot P ain PANEL 7:29 AM CDT documented in this encounter Results * CBC WITHOUT DIFFERENTIAL (07/19/2008 7:29 AM CDT) WBC 5.35 3.0 - 10.4 x10E3 [facility] RBC 4.37 3.77 - 4.97 x10E6 [facility] HEMOGLOBIN 12.9 11.9 - 15.0 g/dL [facility] HEMATOCRIT 38.6 34.4 - 43.6 % [facility] MCV 88.4 79 - 100 fL [facility] MCH 29.6 28 - 34 pg [facility] MCHC 33.5 33 - 36 g/dL [facility] RDW 13.8 11.5 - 15.1 % [facility] PLATELETS 291 148 - 408 x10E3 [facility] MPV 8.6Comment: [facility] 7.4 - 10.6 [facility] ACCT#[id number], ,,,, [facility] Specimen Blood specimen (specimen) Performing Organization Address [facility] Ph one Number [facility] CLIA# [id number] Jose De Jesus [place] [address] [facility] [address] [place] [address] * URIC ACID (07/19/2008 7:29 AM CDT) URIC ACID 4.5Comment: [facility] 2.6 - 6.0 mg/dl [facility] ACCT#[id number], ,,,, [facility] Specimen Blood specimen (specimen) Performing Organization Address [facility] Ph one Number [facility] CLIA# [id number] Jose De Jesus [place] [address] [facility] [address] [place] [address] * COMPREHENSIVE METABOLIC PANEL (07/19/2008 7:29 AM CDT) GLUCOSE 102 70 - 110 mg/dl [facility] BUN 22.0 (H) 7 - 20 mg/dl [facility] CREATININE 1.80 (H) 0.6 - 1.0 mg/dl [facility] BUN/CREAT RATIO 12.2 10 - 20 [facility] GFR 30 >90 ml/min [facility] SODIUM 142 135 - 145 mmol/L [facility] POTASSIUM 3.7 3.3 - 4.8 mmol/L [facility] CHLORIDE 108 (H) 98 - 107 mmol/L [facility] CO2 22.6 22 - 31 mmol/L [facility] ANION GAP 15 4 - 20 [facility] CALCIUM 9.1 8.5 - 10.1 mg/dl [facility] ALBUMIN 3.6 3.4 - 5.0 g/dl [facility] TOTAL PROTEIN 7.8 6.4 - 8.2 g/dl [facility] GLOBULIN (CALC) 4.2 [facility] ALBUMIN/GLOBULI 0.9 [facility] N RATIO [facility] [facility] BILIRUBIN TOTAL 0.2 <1.1 mg/dl [facility] ALKALINE 95 50 - 136 IU/L [facility] PHOSPHATASE [place] [facility] AST 18 10 - 40 IU/L [facility] ALT 28Comment: [facility] 25 - 70 IU/L [facility] ACCT#[id number], ,,,, [facility] Specimen Blood specimen (specimen) Performing Organization Address City/State/Zipcode Ph one Number [facility] DIEGOIA# [id number] Jose De Jesus [place] [address] [facility] [address] [facility] documented in this encounter Visit Diagnoses Diagnosis Foot pain Pain in limb documented in this encounter
--- OUTSIDE RECORDS SUMMARY | 2019-08-19 16:14 | XMS REPORT | Encounter Summary ---
Author Author [facility] Organization [facility] Address Unknown Phone Unavailable Care Team Providers Care Tie Tamper Name Role Phone Carlotta Aguayo MD PCP Unavailable Reason for Visit * Reason Onset Date Comments Medication Refill 09/02/2008 Encounter Details Care Team Description Date Type Department Carlotta Aguayo MD NO ADDRESS ON FILE 09/02/[address] [address] Social History Date Tobacco Use Types Packs/Day Years Used Never Smoker Drinks/Week oz/Week Comments Alcohol Use No Sex Assigned at Date Recorded Not on file documented as of this encounter Plan of Treatment Not on filedocumented as of this encounter Visit Diagnoses Not on filedocumented in this encounter
--- OUTSIDE RECORDS SUMMARY | 2019-08-19 16:14 | XMS REPORT | Encounter Summary ---
Author Author [facility] Organization [facility] Address Unknown Phone Unavailable Care Team Providers Care Interface Control Officer Name Role Phone Carlotta Aguayo MD PCP Unavailable Encounter Details Care Team Description Date Type Department Carlotta Aguayo MD NO ADDRESS ON FILE Other and Unspecified Hyperlipidemia (Pr imary Dx) 10/20/2008 Orders Only [facility] Primar y Care [place] [address] [place] [address] Social History Date Tobacco Use Types Packs/Day Years Used Never Smoker Drinks/Week oz/Week Comments Alcohol Use No Sex Assigned at Date Recorded Not on file documented as of this encounter Plan of Treatment Not on filedocumented as of this encounter Results * LIPID PANEL (01/18/2009 7:36 AM CDT) CHOLESTEROL 234 (H) 140 - 200 mg/dl [facility] TRIGLYCERIDE 105 0 - 199 mg/dl [facility] Comment: [facility] REFERENCE RANGE - [facility] TRIGLYCERIDES NORMAL LESS THAN 150 mg/dl BORDERLINE HIGH 150 - 199 mg/dl HIGH 200 - 499 mg/dl VERY HIGH GREATER THAN OR = 500 mg/dl HDL 67 29 - 89 mg/dl [facility] LDL 131 (H) <130 mg/dl [facility] CHOLESTEROL, Comment: [facility] DIRECT INDU LAB RISK CATEGORY LDL GOAL High risk: <100 mg/dl CHD or CHD risk equivalents (optional goal: <70 mg/dl) (10-year risk > 20%) Moderately high risk <130 mg/dl 2+ risk factors (10-year risk 10% to 20%) Moderate risk: <130 mg/dl 2+ risk factors (10-year risk < 10%) Lower risk: <160 mg/dl 0-1 risk factor KRISTA TONG ACCT#[id number], ,,,, Specimen Blood specimen (specimen) Performing Organization Address City/State/Zipcode Ph one Number INTERFACE SYSTEM [facility] [place]# [id number] Jose De Jesus [place] [address] INDU [address] [facility] * COMPREHENSIVE METABOLIC PANEL (01/18/2009 7:36 AM CDT) GLUCOSE 101 70 - 110 mg/dl [facility] BUN 17.0 7 - 20 mg/dl [facility] CREATININE 1.81 (H) 0.6 - 1.0 mg/dl [facility] BUN/CREAT RATIO 9.4 (L) 10 - 20 [facility] GFR 30 >90 ml/min [facility] SODIUM 139 135 - 145 mmol/L [facility] POTASSIUM 3.7 3.3 - 4.8 mmol/L [facility] CHLORIDE 106 98 - 107 mmol/L [facility] CO2 23.8 22 - 31 mmol/L [facility] ANION GAP 13 4 - 20 [facility] CALCIUM 9.3 8.5 - 10.1 mg/dl [facility] ALBUMIN 3.8 3.4 - 5.0 g/dl [facility] TOTAL PROTEIN 7.6 6.4 - 8.2 g/dl [facility] GLOBULIN (CALC) 3.8 [facility] ALBUMIN/GLOBULI 1.0 [facility] BILIRUBIN TOTAL 0.4 <1.1 mg/dl [facility] ALKALINE 125 50 - 136 IU/L [facility] PHOSPHATASE [place] [facility] INDU LAB AST 9 (L) 10 - 40 IU/L [facility] ALT 30Comment: [facility] 25 - 70 IU/L [facility] ACCT#[id number], ,,,, [facility] Specimen Blood specimen (specimen) Performing Organization Address City/State/Zipcode Ph one Number INTERFACE SYSTEM [facility] [place]# [id number] Jose De Jesus [place] [address] INDU [address] documented in this encounter Visit Diagnoses Diagnosis Other and unspecified hyperlipidemia documented in this encounter
--- OUTSIDE RECORDS SUMMARY | 2019-08-19 16:14 | XMS REPORT | Encounter Summary ---
Author Author [facility] Organization [facility] Address Unknown Phone Unavailable Care Team Providers Care Wall Worker Name Role Phone Carlotta Aguayo MD PCP Unavailable Encounter Details Care Team Description Date Type Department Carlotta Aguayo MD NO ADDRESS ON FILE 04/21/2009 Orders Only [facility] Primar Care [address] [address] Social History Date Tobacco Use Types Packs/Day Years Used Never Smoker Drinks/Week oz/Week Comments Alcohol Use No Sex Assigned at Date Recorded Not on file documented as of this encounter Plan of Treatment Not on filedocumented as of this encounter Visit Diagnoses Not on filedocumented in this encounter
--- OUTSIDE RECORDS SUMMARY | 2019-08-19 16:14 | XMS REPORT | Encounter Summary ---
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 Care Heel Trimmer Name Role Phone Carlotta Aguayo MD PCP Unavailable Reason for Visit * Auth/Cert Referred By Contact Referred To Contact Status Reason Specialty Diagnoses / Procedures [facility] Operating Room [address] [place] [address] Closed Diagnoses colonoscopy P rocedures COLONOSCOPY Encounter Details Care Team Description Date Type Department Vandana Rosen MD NO ADDRESS ON FILE Status post colonoscopy with polypectomy 04/29/2009 [facility] ort Encounter Lenny Pre Post Op [address] [place] [address] Social History Date Tobacco Use Types Packs/Day Years Used Never Smoker Drinks/Week oz/Week Comments Alcohol Use No Sex Assigned at Date Recorded Not on file documented as of this encounter Last Filed Vital Signs Reading Time Taken Comments Vital Sign 120/68 04/29/2009 10:15 AM SALES SERVICE MANAGER Blood Pressure 79 04/29/2009 10:15 AM SALES SERVICE MANAGER Pulse 36.4 C (97.5 F) 04/29/2009 8:45 AM SALES SERVICE MANAGER Temperature 20 04/29/2009 10:15 AM SALES SERVICE MANAGER Respiratory Rate - - Oxygen Saturation - - Inhaled Oxygen Concentration 67.1 kg (148 lb) 04/29/2009 8:45 AM SALES SERVICE MANAGER Weight 157.5 cm (5' 2") 04/29/2009 8:45 AM SALES SERVICE MANAGER Height 27.07 04/29/2009 8:45 AM SALES SERVICE MANAGER Body Mass Index documented in this encounter Discharge Instructions * Patient Instructions* Aok Scanning, Amb Physician - 05/02/2009 12:38 PM SALES SERVICE MANAGER * Additional Instructions* Mireya Gold RN - [...] worse throughout day. ExitCare Patient Information 2006 [employer]. * Attachments The following attachments cannot be sent through Care Everywhere.* COLON POLYPS: AFTER YOUR VISIT (WELSH) documented in this encounter Medications at Time [...] Scanning, Sidra Physician - 05/03/2009 12:19 PM SALES SERVICE MANAGER * Vandana Rosen MD - 04/29/2009 9:18 AM SALES SERVICE MANAGER No interval change. Will proceed with colonoscopy. S SERVICE MANAGER documented in this encounter OR Notes * OR Anesthesia - Aok Scanning, Sidra Physician - 05/02/2009 12:38 PM SALES SERVICE MANAGER * Operative Report - Vandana Rosen MD - 04/29/2009 9:58 AM SALES SERVICE MANAGER Colonoscopy Procedure Note Procedure: Colonoscopy --diagnostic Pre-operative [...] 3 years., -Foll ow up with me. S SERVICE MANAGER documented in this encounter Miscellaneous Notes * Scanned Form - Aok Scanning, Sidra Physician - 05/02/2009 12:38 PM SALES SERVICE MANAGER * Scanned Form - Aok Scanning, [facility] Physician - 05/02/2009 12:06 PM SALES SERVICE MANAGER documented in this encounter Plan of Treatment Not on filedocumented as of this encounter Procedures Comments Procedure Name Priority Date/Time Associated Diag nosis COLONOSCOPY 04/29/2009 4:18 PM SALES SERVICE MANAGER PATHOLOGY Routine 04/29/2009 1:37 PM SALES SERVICE MANAGER documented in this encounter Results * PATHOLOGY (04/29/2009 1:37 PM SALES SERVICE MANAGER) SURGICAL Name: ERA GIBSON PATHOLOGY : PATHOLOGY 40 [place] [facility] [place] [facility] [place]: F Unit#: [id number] Room/Bed: [facility] PRE-6 Att: Vandana Crane M.D. RECD: 04/29/09 PROCEDURE DATE: 04/29/[address] [facility] [address]: Vandana Rosen M.D. [facility] DR: ICD CODES: 211.3 ICD CODES: 569.89 ICD CODES: 569.9 PROCEDURES: [id number] LOCATION: [facility] PATIENT MATERIAL SUBMITTED A) Biopsy of polyp at 15 cm. B) Biopsy of ileocecal valve mucosa. C) Biopsy of mucosa at 60 cm. D) Biopsy of polyp at 50 cm. CLINICAL HISTORY: Constipation, screening. Procedure: Colonoscopy. Technical component performed at [facility], [address] [place] [address]. GROSS DESCRIPTION The specimen is received in [...] cassette. Dictated by:Haley Lorenzo,S. V. TD:04/29/09 - 1430 [id number] MICROSCOPIC DESCRIPTION A) Microscopic examination shows [...] of CONTINUED ON NEXT PAGE Specimen # [id number] ERA GIBSON (Continued) MICROSCOPIC DESCRIPTION (Continued) lymphoplasmacytic [...] malignancy. Dictated by:Med Su MD TD:05/02/09 - 1139 [facility] FINAL DIAGNOSIS A) Colon, 15 cm, biopsies: 1. Tubular adenoma. 2. Hyperplastic polyp. B) Colon, ileocecal valve, biopsy: Submucosal lymphoid nodule. C) Colon, 60 cm, biopsy: No significant pathologic change identified. D) Colon, 50 cm, biopsy: Tubular adenoma. Dictated by: Med Su MD TD:05/02/09 - 1148 [facility] Signed (electronic signature) Med Su M.D. 05/02/092026 END OF REPORT Comment: , ,,,, Specimen Specimen of unknown material (specimen) Performing Organization Address City/State/Zipcode Ph one Number INTERFACE SYSTEM [facility] CLIA# [id number] [place] [address] [facility], [facility] [address] [place] [address] documented in this encounter Visit Diagnoses Diagnosis Status post colonoscopy with polypectom y Other postprocedural status documented in this encounter Administered Medications Action Date Dose Rate Site Medication Order MAR Action 04/29/2009 10:36 AM SALES SERVICE MANAGER 4 mg ondansetron (ZOFRAN) 4 mg/2 mL injection Given 4-8 mg 4-8 mg, IV, EVERY 6 HOURS PRN, Starting Sat04/29/09 at 1027, Until Sat04/29/09 at 1523, Nausea/Emesis, Routine 04/29/2009 10:36 AM SALES SERVICE MANAGER 3 mL sodium chloride 0.9 % flush injection 3 Given mL 3 mL, IV, SEE ADMIN INSTRUCTIONS, Starting Sat04/29/09 at 0839, Until Sat04/29/09 at 1523, Routine 3 mL Given 04/29/2009 9:06 AM SALES SERVICE MANAGER documented in this encounter
--- OUTSIDE RECORDS SUMMARY | 2019-08-19 16:14 | XMS REPORT | Encounter Summary ---
Author Author [facility] Organization [facility] Address Unknown Phone Unavailable Care Team Providers Care Pediatric Lpn Name Role Phone Carlotta Johnson MD PCP Unavailable Reason for Visit * Reason Comments Colonoscopy constipated, needs colonosc opy, ref. by dr. johnson * Consult, Test & Treat (Routine) Referred By Contact Referred To Contact Status Reason Specialty Diagnoses / Procedures Carlotta Johnson MD NO ADDRESS ON FILE Vandana Rosen MD NO ADDRESS ON FILE Closed Surgery / Diagnoses General Surgery consult colon ref dr alex Mobley rocedures CONSULT Encounter Details Care Team Description Date Type Department Vandana Rosen MD NO ADDRESS ON FILE Constipation (Primary Dx) 04/25/2009 Initial consult [address] [address] Social History Date Tobacco Use Types Packs/Day Years Used Never Smoker Drinks/Week oz/Week Comments Alcohol Use No Sex Assigned at Date Recorded Not on file documented as of this encounter Last Filed Vital Signs Reading Time Taken Comments Vital Sign 124/90 04/25/2009 10:29 AM PARLIAMENTARY LIBRARIAN Blood Pressure 80 04/25/2009 10:29 AM PARLIAMENTARY LIBRARIAN Pulse 36.2 C (97.1 F) 04/25/2009 10:29 AM PARLIAMENTARY LIBRARIAN Temperature - - Respiratory Rate - - Oxygen Saturation - - Inhaled Oxygen Concentration 68.9 kg (152 lb) 04/25/2009 10:29 AM PARLIAMENTARY LIBRARIAN Weight - - Height 29.2 04/19/2009 8:13 AM PARLIAMENTARY LIBRARIAN Body Mass Index documented in this encounter Progress Notes * Vandana Rosen MD - 04/25/2009 11:15 AM PARLIAMENTARY LIBRARIAN Subjective: Era Viveros is an 68 y.o. female who presents for screening colonoscopy. Th e patient did admit to chronic constipation. She described long standing histor y of not going for 2 to 3 days, then stool would be hard. Often related to not drinking enough water. Otherwise, bowel movement is usually normal. Denies abd ominal pain. Has had history of hemorrhoids, with rarely blood on toilet paper. Father had cancer of unknown type, but did have colostomy. Past Medical History Diagnosis Date Gout Unspecified Chronic Ischemic Heart Disease Past Surgical History Procedure Date Pr ligate fallopian tube Family History Problem Relation Cancer Other Current outpatient prescriptions Medication Sig Dispense Refill OMEGA-3 FATTY ACIDS (FISH OIL PO) Take by mouth. lansoprazole (PREVACID) 15 mg Oral CpDR Take 15 mg by mouth daily. polyethylene glycol 3350 (MIRALAX) 17 gram/dose Oral Powd Take 18 scoops by mouth see administration instructions. Dissolve in 64 oz Gatorade, Powerade, or Crystal Llight and drink entire amount. Please follow instruction sheet. 306 G sena 0 bisacodyl delayed release (DULCOLAX) 5 mg Oral TbEC Take 4 Tabs by mouth see administration instructions. Take 4 tablets before drinking mixture. Take 2 ta blets at bedtime. 8 Tab 0 promethazine (PHENERGAN) 25 mg Oral tablet Take 1 Tab by mouth see administr ation instructions. Take 1 tablet one hr before drinking mixture. Then take 1 t ablet every 6 hr as needed for nausea. 6 Tab 0 colchicine-probenecid (COLBENEMID) 0.5-500 mg Oral Tab Take 1 Tab by mouth d aily. NIFEdipine SR 24 hour (PROCARDIA XL) 30 mg Oral tablet Take 1 Tab by mouth 2 times daily. 60 Tab 5 raloxifene (EVISTA) 60 mg Oral Tab Take 1 Tab by mouth daily. 30 Tab 5 Allergies Allergen Reactions Other Drug (Unclassified Drug) Other (See Comments) Horse serum Allopurinol Rash Indomethacin Renal Dysfunctions History Social History Marital Status: Spouse Name: N/A Number of Children: N/A Years of Education: N/A Occupational History Not on file. Social History Main Topics Tobacco Use: Never Alcohol Use: No Drug Use: No Sexually Active: Yes -- Male partner(s) Other Topics Concern Not on file Social History Narrative No narrative on file Review of Systems Pertinent items are noted in HPI. Objective: BP 124/90 | Pulse 80 | Temp 97.1 F (36.2 C) | Wt 152 lb (68.947 kg) | LMP P ostmenopausal General: alert, in no distress Skin: Normal. Eyes: negative Mouth: MMM no lesions Lymph Nodes: Cervical, supraclavicular, and axillary nodes normal. Lungs: normal respiratory effort Heart: regular rate and rhythm Abdomen: Soft, non-tender. Bowel sounds normal. No masses, no organomegaly. CVA: absent Genitourinary: defer exam Extremities: extremities normal, atraumatic, no cyanosis or edema Neurologic: negative Psychiatric: non focal Assessment: Needs colonoscopy both for screening and for history of rare rectal bleeding. N o contraindications. Plan: 1. Discussed the risk of colonoscopy including bleeding and perforation, and th e risks of anesthetic medications. The patient understands the risks, any and al l questions were answered to the patient's satisfaction. 2. Colonoscopy scheduled for 04/29/09. IAMENTARY LIBRARIAN documented in this encounter Plan of Treatment Not on filedocumented as of this encounter Visit Diagnoses Diagnosis Constipation Unspecified constipation documented in this encounter"
--- OUTSIDE RECORDS SUMMARY | 2019-08-19 16:14 | XMS REPORT | Encounter Summary ---
Author Author [facility] Organization [facility] Address Unknown Phone Unavailable Care Team Providers Care Wig Comber Name Role Phone Carlotta Aguayo MD PCP Unavailable Encounter Details Care Team Description Date Type Department [facility], Lab Schedule 10/18/2008 [facility] General Encounter Laboratory Services [address] [address] Social History Date Tobacco Use Types Packs/Day Years Used Never Smoker Drinks/Week oz/Week Comments Alcohol Use No Sex Assigned at Date Recorded Not on file documented as of this encounter Medications at Time of Discharge Start Date End Date Medication Sig Dispensed Refills 09/02/2008 03/30/2009 NIFEdipine SR 24 hour Take 1 Tab by 60 Tab 5 (PROCARDIA XL) 30 mg Oral mouth 2 times TO24 daily. 05/25/2008 02/02/2009 raloxifene (EVISTA) 60 mg Take 1 Tab by 30 Tab 5 Oral TabIndications: mouth daily. Menopausal disorder 04/30/2008 12/09/2008 COLCHICINE/PROBENECID Take 1 Tab by 60 Tab 3 (COLCHICINE-PROBENECID) mouth 2 times 0.5-500 mg Oral Tab daily. documented as of this encounter Plan of Treatment Not on filedocumented as of this encounter Procedures Comments Procedure Name Priority Date/Time Associated Diag nosis URIC ACID Routine 10/18/2008 Hyperlipidemia 8:22 AM CDT Gouty Arthropathy LIPID PANEL Routine 10/18/2008 Hyperlipidemia 8:22 AM CDT Gouty Arthropathy COMPREHENSIVE METABOLIC Routine 10/18/2008 Hyperl ipidemia PANEL 8:22 AM CDT Gouty Arthropathy documented in this encounter Results * LIPID PANEL (10/18/2008 8:22 AM CDT) [facility] Signature CHOLESTEROL 242 (H) 140 - 200 mg/dl [facility] TRIGLYCERIDE 115 0 - 199 mg/dl [facility] Comment: [facility] REFERENCE RANGE - [facility] TRIGLYCERIDES NORMAL LESS THAN 150 mg/dl BORDERLINE HIGH 150 - 199 mg/dl HIGH 200 - 499 mg/dl VERY HIGH GREATER THAN OR = 500 mg/dl HDL 69 29 - 89 mg/dl [facility] LDL 149 (H) <130 mg/dl [facility] CHOLESTEROL, Comment: [facility] DIRECT [place] LAB RISK CATEGORY LDL GOAL High risk: <100 mg/dl CHD or CHD risk equivalents (optional goal: <70 mg/dl) (10-year risk > 20%) Moderately high risk <130 mg/dl 2+ risk factors (10-year risk 10% to 20%) Moderate risk: <130 mg/dl 2+ risk factors (10-year risk < 10%) Lower risk: <160 mg/dl 0-1 risk factor KRISTA TONG ACCT#[id number], ,,,, Specimen Blood specimen (specimen) Performing Organization Address City/[facility] Ph one Number INTERFACE SYSTEM [facility] [place]# [id number] Jose De Jesus [place] [address] INDU LAB [address] [facility] * URIC ACID (10/18/2008 8:22 AM CDT) URIC ACID 5.1Comment: KRISTA TONG 2.6 - 6.0 mg/dl [facility] ACCT#[id number], ,,,, [facility] INDU LAB Specimen Blood specimen (specimen) Performing Organization Address City/[facility] Ph one Number INTERFACE SYSTEM [facility] [place]# [id number] Jose De Jesus [place] [address] INDU LAB [address] [facility] * COMPREHENSIVE METABOLIC PANEL (10/18/2008 8:22 AM CDT) GLUCOSE 93 70 - 110 mg/dl [facility] BUN 17.0 7 - 20 mg/dl [facility] INDU LAB CREATININE 1.80 (H) 0.6 - 1.0 mg/dl [facility] INDU LAB BUN/CREAT RATIO 9.4 (L) 10 - 20 [facility] GFR 30 >90 ml/min [facility] SODIUM 142 135 - 145 mmol/L [facility] INDU LAB POTASSIUM 3.6 3.3 - 4.8 mmol/L [facility] CHLORIDE 107 98 - 107 mmol/L [facility] INDU LAB CO2 23.6 22 - 31 mmol/L [facility] INDU LAB ANION GAP 15 4 - 20 [facility] CALCIUM 9.0 8.5 - 10.1 mg/dl [facility] ALBUMIN 3.9 3.4 - 5.0 g/dl [facility] TOTAL PROTEIN 7.8 6.4 - 8.2 g/dl [facility] GLOBULIN (CALC) 3.9 [facility] ALBUMIN/GLOBULI 1.0 [facility] N RATIO [facility] BILIRUBIN TOTAL 0.3 <1.1 mg/dl [facility] ALKALINE 106 50 - 136 IU/L [facility] PHOSPHATASE [place] [facility] AST 17 10 - 40 IU/L [facility] ALT 27Comment: [facility] 25 - 70 IU/L [facility] ACCT#[id number], ,,,, [facility] Specimen Blood specimen (specimen) Performing Organization Address City/State/Zipcode Ph one Number INTERFACE SYSTEM [facility] CLIA# [id number] Jose De Jesus [place] [address] INDU LAB [address] [facility] documented in this encounter Visit Diagnoses Diagnosis Hyperlipidemia Other and unspecified hyperlipidemia Gouty arthropathy documented in this encounter
--- OUTSIDE RECORDS SUMMARY | 2019-08-19 16:14 | XMS REPORT | Encounter Summary ---
Author Author [facility] Organization [facility] Address Unknown Phone Unavailable Care Team Providers Care Fur Tailor Name Role Phone Carlotta Aguayo MD PCP Unavailable Encounter Details Care Team Description Date Type Department Carlotta Aguayo MD NO ADDRESS ON FILE Other and Unspecified Hyperlipidemia; HTN (Hypertension) 01/18/2009 Orders Only [facility] Primar Care [address] [address] Social History Date Tobacco Use Types Packs/Day Years Used Never Smoker Drinks/Week oz/Week Comments Alcohol Use No Sex Assigned at Date Recorded Not on file documented as of this encounter Plan of Treatment Not on filedocumented as of this encounter Results * COMPREHENSIVE METABOLIC PANEL (04/19/2009 7:09 AM CENTERPUNCHER) [facility] GLUCOSE 97 70 - 110 mg/dl [facility] BUN 18.0 7 - 20 mg/dl [facility] CREATININE 1.91 (H) 0.6 - 1.0 mg/dl [facility] BUN/CREAT RATIO 9.4 (L) 10 - 20 [facility] GFR 28 >90 ml/min [facility] SODIUM 141 135 - 145 mmol/L [facility] POTASSIUM 3.8 3.3 - 4.8 mmol/L [facility] CHLORIDE 107 98 - 107 mmol/L [facility] CO2 23.9 22 - 31 mmol/L [facility] ANION GAP 14 4 - 20 [facility] CALCIUM 9.4 8.5 - 10.1 mg/dl [facility] ALBUMIN 4.1 3.4 - 5.0 g/dl [facility] TOTAL PROTEIN 8.1 6.4 - 8.2 g/dl [facility] GLOBULIN (CALC) 4.0 [facility] ALBUMIN/GLOBULI 1.0 [facility] RATIO [place] [facility] BILIRUBIN TOTAL 0.4 <1.1 mg/dl [facility] ALKALINE 113 50 - 136 IU/L [facility] PHOSPHATASE [place] [facility] AST 19 10 - 40 IU/L [facility] ALT 36Comment: [facility] 25 - 70 IU/L [facility] ACCT#[id number], ,,,, [facility] Specimen Blood specimen (specimen) Performing Organization Address City/State/Zipcode Ph one Number INTERFACE SYSTEM [facility] D[place]IA# [id number] Jose De Jesus [place] [address] INDU LAB [address] documented in this encounter Visit Diagnoses Diagnosis Other and unspecified hyperlipidemia HTN (hypertension) Unspecified essential hypertension documented in this encounter
--- OUTSIDE RECORDS SUMMARY | 2019-08-19 16:14 | XMS REPORT | Encounter Summary ---
Author Author [facility] Organization [facility] Address Unknown Phone Unavailable Care Team Providers Care Market Editor Name Role Phone Carlotta Aguayo MD PCP Unavailable Reason for Visit * Reason Comments Follow Up 3 mos Results lab Hypertension Cholesterol Problem Encounter Details Care Team Description Date Type Department Carlotta Aguayo MD NO ADDRESS ON FILE Other Screening Mammogram (Primary Dx) 01/18/2009 Office Visit [address] [address] Social History Date Tobacco Use Types Packs/Day Years Used Never Smoker Drinks/Week oz/Week Comments Alcohol Use No Sex Assigned at Date Recorded Not on file documented as of this encounter Last Filed Vital Signs Reading Time Taken Comments Vital Sign 128/86 01/18/2009 8:10 AM CDT Blood Pressure - - Pulse 37.6 C (99.6 F) 01/18/2009 8:10 AM CDT Temperature - - Respiratory Rate - - Oxygen Saturation - - Inhaled Oxygen Concentration 65.8 kg (145 lb) 01/18/2009 8:10 AM CDT Weight - - Height - - Body Mass Index documented in this encounter Progress Notes * Goyo Aguayo MD - 01/18/2009 8:40 AM CDT Subjective: Era Viveros is a 67 y.o. female with hyperlipidemia and hypertension. No h eadache or palpitations. Cardiovascular risk analysis - 67 y.o. female LDL goal is under 100. ROS: no side effects of medications, no chest pain on exertion, no dyspnea on ex ertion, no edema. New concerns: elevated blood pressure. Objective: BP 128/86 | Temp 99.6 F (37.6 C) | Wt 145 lb (65.772 kg) Appearance alert, well appearing, and in no distress. General exam BP noted to be mildly elevated today in office, S1, S2 normal, no g allop, no murmur, chest clear, no JVD, no HSM, no edema. Lab review: Labs reviewed, I note that lipids LDL result meets goal. Assessment: Hyperlipidemia , well controlled Hypertension, well controlled Plan: the following changes to treatment plan are made: diet, omega 3 2 per day, monit or BP reviewed medications and side effects in detail . documented in this encounter Plan of Treatment Not on filedocumented as of this encounter Results * MAMMO DIGITAL SCREEN BILAT (02/01/2009 2:33 PM POWDER BLENDER) Specimen Impressions Performed At : Stable mammographic examination when co mpared to the prior year and a follow up examination in one year is fisher ggested in the absence of a palpable abnormality. BI-RADS Category 2: Benign Mammogram TECH: Azul villela [[id number]] Narrative Performed At SCREENING MAMMOGRAM: Screening CC and oblique digital views were obtained and are compared to 01/01/08. Exam reviewed with CAD. No spiculated mass or malignant appearing area of microcalcification or a significant interval change is identified in either breast. Procedure Note Nick Bhatti MD - 02/02/2009 4:00 PM POWDER BLENDER SCREENING MAMMOGRAM: Screening CC and oblique digital views were obtained and are compared to 01/01/08. Exam reviewed with CAD. No spiculated mass or malignant appearing area of microcalcification or a significant interval change is identified in either breast. IMPRESSION: Stable mammographic examination when compared to the prior year and a follow up examination in one year is suggested in the absence of a palpable abnormality. BI-RADS Category 2: Benign Mammogram TECH: Azul villela [[id number]] documented in this encounter Visit Diagnoses Diagnosis Other screening mammogram documented in this encounter"
--- OUTSIDE RECORDS SUMMARY | 2019-08-19 16:14 | XMS REPORT | Encounter Summary ---
Author Author [facility] Organization [facility] Address Unknown Phone Unavailable Care Team Providers Care Bar Finish Operator Name Role Phone Carlotta Aguayo MD PCP Unavailable Encounter Details Care Team Description Date Type Department Carlotta Aguayo MD NO ADDRESS ON FILE [facility], Lab Schedule 01/18/2009 Hospital [facility] General Encounter Laboratory Services [address] [address] Social History Date Tobacco Use [...] Date/Time Associated Diag nosis LIPID PANEL Stat 01/18/2009 Other and Unspe cified 7:36 AM CDT Hyperlipidemia COMPREHENSIVE METABOLIC Stat 01/18/2009 Other and Unspecified PANEL 7:36 AM CDT Hyperlipidemia documented in this encounter Results * COMPREHENSIVE METABOLIC PANEL (01/18/2009 7:36 AM CDT) [facility] Signature GLUCOSE 101 70 - 110 mg/dl [facility] BUN 17.0 7 - 20 mg/dl [facility] CREATININE 1.81 (H) 0.6 - 1.0 mg/dl [facility] BUN/CREAT RATIO 9.4 (L) 10 - 20 [facility] GFR 30 >90 ml/min [facility] SODIUM 139 135 - 145 mmol/L [facility] POTASSIUM 3.7 3.3 - 4.8 mmol/L [facility] CHLORIDE 106 98 - 107 mmol/L [facility] CO2 23.8 22 - 31 mmol/L [facility] ANION GAP 13 4 - 20 [facility] CALCIUM 9.3 8.5 - 10.1 mg/dl [facility] ALBUMIN 3.8 3.4 - 5.0 g/dl [facility] TOTAL PROTEIN 7.6 6.4 - 8.2 g/dl [facility] GLOBULIN (CALC) 3.8 [facility] ALBUMIN/GLOBULI 1.0 [facility] N RATIO [facility] BILIRUBIN TOTAL 0.4 <1.1 mg/dl [facility] ALKALINE 125 50 - 136 IU/L [facility] PHOSPHATASE [facility] AST 9 (L) 10 - 40 IU/L [facility] ALT 30Comment: [facility] 25 - 70 IU/L [facility] ACCT#[id number], ,,,, [facility] Specimen Blood specimen (specimen) Performing Organization Address City/State/Zipcotx Ph one Number INTERFACE SYSTEM [facility] CLIA# [id number] Jose De Jesus [place] [address] [address] * LIPID PANEL (01/18/2009 7:36 AM CDT) CHOLESTEROL 234 (H) 140 - 200 mg/dl [facility] TRIGLYCERIDE 105 0 - 199 mg/dl [facility] Comment: [facility] TRIGLYCERIDES NORMAL LESS THAN 150 mg/dl BORDERLINE HIGH 150 - 199 mg/dl HIGH 200 - 499 mg/dl VERY HIGH GREATER THAN OR = 500 mg/dl HDL 67 29 - 89 mg/dl [facility] LDL 131 (H) <130 mg/dl [facility] CHOLESTEROL, Comment: [facility] RISK CATEGORY LDL GOAL High risk: <100 mg/dl CHD or CHD risk equivalents (optional goal: <70 mg/dl) (10-year risk > 20%) Moderately high risk <130 mg/dl 2+ risk factors (10-year risk 10% to 20%) Moderate risk: <130 mg/dl 2+ risk factors (10-year risk < 10%) Lower risk: <160 mg/dl 0-1 risk factor [facility] ACCT#[id number], ,,,, Specimen Blood specimen (specimen) Performing Organization Address City/State/Zipcode Ph one Number INTERFACE SYSTEM [facility] PINON# [id number] Jose De Jesus [place] [address] INDU [facility] [address] [facility] documented in this encounter Visit Diagnoses Diagnosis Other and unspecified hyperlipidemia documented in this encounter
--- OUTSIDE RECORDS SUMMARY | 2019-08-19 16:14 | XMS REPORT | Encounter Summary ---
Author Author [facility] Organization [facility] Address Unknown Phone Unavailable Care Team Providers Care Underwriting Director Name Role Phone Carlotta Aguayo MD PCP Unavailable Reason for Visit * Consult, Test & Treat (Routine) Referred By Contact Referred To Contact Status Reason Specialty Diagnoses / Procedures Carlotta Aguayo MD NO ADDRESS ON FILE [facility] Mammography [address] [place] [address] Closed Radiology Diagnoses MAMMO SCREENING LAST MAGDALENA 01/01/08 DR KEENAN eric MAMMOGRAPHY SCREENING Encounter Details Care Team Description Date Type Department Carlotta Aguayo MD NO ADDRESS ON FILE 02/01/2009 [facility] Encounter [facility] [address] [place] [address] Social History Date Tobacco Use [...] Procedure Name Priority Date/Time Associated Diag nosis MAMMO SCREEN BILAT W OR Routine 02/01/2009 Other Screening Mammogram WO CAD 2:33 PM SURGICAL DENTAL ASSISTANT documented in this encounter Results * MAMMO DIGITAL SCREEN BILAT (02/01/2009 2:33 PM SURGICAL DENTAL ASSISTANT) Specimen Impressions Performed At : Stable mammographic [...] Nick Bhatti MD - 02/02/2009 4:00 PM SURGICAL DENTAL ASSISTANT SCREENING MAMMOGRAM: Screening CC and oblique digital [...] Diagnosis Other screening mammogram documented in this encounter
--- OUTSIDE RECORDS SUMMARY | 2019-08-19 16:14 | XMS REPORT | Encounter Summary ---
Author Author [facility] Organization [facility] Address Unknown Phone Unavailable Care Team Providers Care Mortgage Loan Processor Name Role Phone Carlotta Aguayo MD PCP Unavailable Reason for Visit * Reason Comments Well Woman Exam Database Marketing Manager Exam pap with breast exam Results lab Follow Up 3 mos Encounter Details Care Team Description Date Type Department Carlotta Aguayo MD NO ADDRESS ON FILE Well Woman Exam (Primary Dx) 04/19/[address] [facility] Primar y [address] [address] Social History Date Tobacco Use Types Packs/Day Years Used Never Smoker Drinks/Week oz/Week Comments Alcohol Use No Sex Assigned at Date Recorded Not on file documented as of this encounter Last Filed Vital Signs Reading Time Taken Comments Vital Sign 154/86 04/19/2009 8:13 AM NETWORK ENGINEER ADMINISTRATOR Blood Pressure 100 04/19/2009 8:13 AM NETWORK ENGINEER ADMINISTRATOR Pulse 37.2 C (99 F) 04/19/2009 8:13 AM NETWORK ENGINEER ADMINISTRATOR Temperature - - Respiratory Rate - - Oxygen Saturation - - Inhaled Oxygen Concentration 67.1 kg (148 lb) 04/19/2009 8:13 AM NETWORK ENGINEER ADMINISTRATOR Weight 153.7 cm (5' 0.5") 04/19/2009 8:13 AM NETWORK ENGINEER ADMINISTRATOR Height 28.43 04/19/2009 8:13 AM NETWORK ENGINEER ADMINISTRATOR Body Mass Index documented in this encounter Progress Notes * Angelia Nguyễn - 04/19/2009 11:32 AM NETWORK ENGINEER ADMINISTRATOR Addended by: ANGELIA NGUYỄN on: 04/19/2009 Modules accepted: Orders ORK ENGINEER ADMINISTRATOR * Goyo Aguayo MD - 04/19/2009 8:29 AM NETWORK ENGINEER ADMINISTRATOR SUBJECTIVE: 68 y.o. female for annual routine Pap and checkup. Patient is postmenopausal. History of gout ROS: Feeling well. No dyspnea or chest pain on exertion. No abdominal pain, ch alphonse in bowel habits, black or bloody stools. No urinary tract symptoms. MICROPALEONTOLOGIST RO S: normal menses, no abnormal bleeding, pelvic pain or discharge, no breast pain or new or enlarging lumps on self exam. No neurological complaints. OBJECTIVE: The patient appears well, alert, oriented x 3, in no distress. BP 154/86 | Pulse 100 | Temp 99 F (37.2 C) | Ht 5' 0.5" (1.537 m) | Wt 148 l b (67.132 kg) | LMP Postmenopausal ENT normal. Neck supple. No adenopathy or thyromegaly. ELIANA. Lungs are clear, good air entry, no wheezes, rhonchi or rales. S1 and S2 normal, no murmurs, regu lar rate and rhythm. Abdomen soft without tenderness, guarding, mass or organome belia. Extremities show no edema, normal peripheral pulses. Neurological is shannon l, no focal findings. BREAST EXAM: breasts appear normal, no suspicious masses, no skin or nipple pappas ges or axillary nodes PELVIC EXAM: normal external genitalia, vulva, vagina, cervix, uterus and adnexa ASSESSMENT: well woman PLAN: mammogram pap smear return annually or prn ORK ENGINEER ADMINISTRATOR documented in this encounter Plan of Treatment Order Schedule Name Type Priority Associated Diag noses Ordered: 04/19/2009 CERVICAL OR VAGINAL Lab Routine Well Woman Exam CYTOPATH, SUREPATH documented as of this encounter Procedures Comments Procedure Name Priority Date/Time Associated Diag nosis PATHOLOGY Routine 04/20/2009 11:58 AM NETWORK ENGINEER ADMINISTRATOR documented in this encounter Results * PATHOLOGY (04/20/2009 11:58 AM NETWORK ENGINEER ADMINISTRATOR) CERVICAL OR Name: ERA GIBSON [facility] T VAGINAL : PATHOLOGY CYTOPATH PAP 40 Location: [facility] CONSULTAN MICHAEL HOFF SMEAR PRIM Sex: F Unit#: [id number] Room/Bed: Att: Goyo Stevens M.D. RECD: 04/20/09 PROCEDURE DATE: 04/19/[address]: Goyo Aguayo M.D. [facility] DR: PROCEDURES: . LOCATION: [facility] PATIENT Specimen Type: Liquid based cytology. Specimen Source: Cervical/endocervical. Pertinent History: Healthy. Postmenopausal. Onset of LMP: Not applicable. Date of Last Pap: 05/06/04. Results of Previous Pap: Normal. Risk Factors for Cervical/Endocervical Cancer: No. INTERPRETATION/RESULTS NEGATIVE FOR INTRAEPITHELIAL LESION OR MALIGNANCY. Hormonal Evaluation: Estrogen effect is absent. Specimen Adequacy: Satisfactory for evaluation. Endocervical/transformation zone component is present. Signed (electronic signature) ERLIN [place] [facility] 04/20/09 1647 END OF REPORT Comment: , ,,,, Specimen Performing Organization Address City/State/Zipcode Ph one Number INTERFACE SYSTEM [facility] CLIA# [id number] [place], [place] [address] [facility] [address] [place] [address] documented in this encounter Visit Diagnoses Diagnosis Well woman exam Routine general medical examination at a health care facility documented in this encounter
--- OUTSIDE RECORDS SUMMARY | 2019-08-19 16:14 | XMS REPORT | Encounter Summary ---
Author Author [facility] Organization [facility] Address Unknown Phone Unavailable Care Team Providers Care Inbound Sales Advisor Name Role Phone Carlotta Aguayo MD PCP Unavailable Reason for Visit * Reason Comments Follow Up 3 mos Results lab 10/18/08 Encounter Details Care Team Description Date Type Department Carlotta Aguayo MD NO ADDRESS ON FILE Hyperlipidemia; Hypertension 10/19/2008 Office Visit [address] [id number] Social History Date Tobacco Use Types Packs/Day Years Used Never Smoker Drinks/Week oz/Week Comments Alcohol Use No Sex Assigned at Date Recorded Not on file documented as of this encounter Last Filed Vital Signs Reading Time Taken Comments Vital Sign 136/92 10/19/2008 8:26 AM CDT Blood Pressure - - Pulse 37.3 C (99.1 F) 10/19/2008 8:26 AM CDT Temperature - - Respiratory Rate - - Oxygen Saturation - - Inhaled Oxygen Concentration 65.8 kg (145 lb) 10/19/2008 8:26 AM CDT Weight - - Height - - Body Mass Index documented in this encounter Progress Notes * Goyo Aguayo MD - 10/19/2008 8:43 AM CDT Subjective: Era Viveros is a 67 y.o. female with hyperlipidemia. Component Value Date/Time CHOLESTEROL 242 10/18/08 8:22 AM CHOLESTEROL 242 03/09/08 7:42 AM HDL 69 10/18/08 8:22 AM HDL 72 03/09/08 7:42 AM LDL CHOLESTEROL, DIRECT 149 10/18/08 8:22 AM LDL CHOLESTEROL, DIRECT 150 03/09/08 7:42 AM TRIGLYCERIDE 115 10/18/08 8:22 AM TRIGLYCERIDE 121 03/09/08 7:42 AM ALT 27 10/18/08 8:22 AM AST 17 10/18/08 8:22 AM Component Value Date/Time CREATININE 1.80 10/18/08 8:22 AM BUN 17.0 10/18/08 8:22 AM SODIUM 142 10/18/08 8:22 AM POTASSIUM 3.6 10/18/08 8:22 AM CHLORIDE 107 10/18/08 8:22 AM CO2 23.6 10/18/08 8:22 AM GFR 30 10/18/08 8:22 AM Component Value Date/Time ALT 27 10/18/08 8:22 AM AST 17 10/18/08 8:22 AM ALKALINE PHOSPHATASE 106 10/18/08 8:22 AM BILIRUBIN TOTAL 0.3 10/18/08 8:22 AM Cardiovascular risk analysis - 67 y.o. female LDL goal is under 100. ROS: no side effects of medications, no chest pain on exertion, no dyspnea on ex ertion, no edema. New concerns: elevated blood pressure. Objective: BP 136/92 | Temp 99.1 F (37.3 C) | Wt 145 lb (65.772 kg) Appearance alert, well appearing, and in no distress. General exam BP noted to be mildly elevated today in office, S1, S2 normal, no g allop, no murmur, chest clear, no JVD, no HSM, no edema. Lab review: Labs reviewed, I note that lipids LDL result meets goal. Assessment: Hyperlipidemia poorly controlled. Hypertension Plan: the following changes to treatment plan are made: diet, omega 3 2 per day, monit or BP reviewed medications and side effects in detail . documented in this encounter Plan of Treatment Not on filedocumented as of this encounter Visit Diagnoses Diagnosis Hyperlipidemia Other and unspecified hyperlipidemia Hypertension Unspecified essential hypertension documented in this encounter"
--- OUTSIDE RECORDS SUMMARY | 2019-08-19 16:14 | XMS REPORT | Encounter Summary ---
Author Author [facility] Organization [facility] Address Unknown Phone Unavailable Care Team Providers Care Electric Motor Mechanic Name Role Phone Carlotta Aguayo MD PCP Unavailable Encounter Details Care Team Description Date Type Department Carlotta Aguayo MD NO ADDRESS ON FILE [facility], Lab Schedule 04/19/2009 Hospital [facility] General Encounter Laboratory Services [address] [address] Social History Date Tobacco [...] Date/Time Associated Diag nosis COMPREHENSIVE METABOLIC Stat 04/19/2009 Other and Unspecified PANEL 7:09 AM MEDICAL MALPRACTICE PARALEGAL Hyperlipidemia HTN (Hypertension) documented in this encounter Results * COMPREHENSIVE METABOLIC PANEL (04/19/2009 7:09 AM MEDICAL MALPRACTICE PARALEGAL) GLUCOSE 97 70 - 110 mg/dl [facility] BUN 18.0 7 - 20 mg/dl [facility] CREATININE 1.91 (H) 0.6 - 1.0 mg/dl [facility] BUN/CREAT RATIO 9.4 (L) 10 - 20 [facility] GFR 28 >90 ml/min [facility] SODIUM 141 135 - 145 mmol/L [facility] POTASSIUM 3.8 3.3 - 4.8 mmol/L [facility] CHLORIDE 107 98 - 107 mmol/L [facility] CO2 23.9 22 - 31 mmol/L [facility] ANION GAP 14 4 - 20 [facility] CALCIUM 9.4 8.5 - 10.1 mg/dl [facility] ALBUMIN 4.1 3.4 - 5.0 g/dl [facility] TOTAL PROTEIN 8.1 6.4 - 8.2 g/dl [facility] GLOBULIN (CALC) 4.0 [facility] ALBUMIN/GLOBULI 1.0 [facility] BILIRUBIN TOTAL 0.4 <1.1 mg/dl [facility] ALKALINE 113 50 - 136 IU/L [facility]PHAT[facility] AST 19 10 - 40 IU/L [facility] ALT 36Comment: [facility] 25 - 70 IU/L [facility] ACCT#[id number], ,,,, [facility] Specimen Blood specimen (specimen) Performing Organization Address City/State/Zipcode Ph one Number INTERFACE SYSTEM [facility] CLIA# [id number] Jose De Jesus [place] [address] IN[facility] [address] documented in this encounter Visit Diagnoses Diagnosis Other and unspecified hyperlipidemia HTN (hypertension) Unspecified essential hypertension documented in this encounter
--- OUTSIDE RECORDS SUMMARY | 2019-08-19 16:14 | XMS REPORT | Encounter Summary ---
Author Author [facility] Organization [facility] Address Unknown Phone Unavailable Care Team Providers Care Benefits Representative Name Role Phone Carlotta Aguayo MD PCP Unavailable Reason for Visit * Reason Onset Date Comments Medication Refill 02/02/2009 Encounter Details Care Team Description Date Type Department Carlotta Aguayo MD NO ADDRESS ON FILE Menopausal Disorder 02/02/[address] [address] Social History Date Tobacco Use [...]
--- OUTSIDE RECORDS SUMMARY | 2019-08-19 16:15 | XMS REPORT | Encounter Summary ---
Author Author [facility] Organization [facility] Address Unknown Phone Unavailable Care Team Providers Care Radiologic Technologist Chief Name Role Phone Carlotta Aguayo MD PCP Unavailable Reason for Visit * Reason Comments Follow Up one mos Results lab results, last week Encounter Details Care Team Description Date Type Department Carlotta Aguayo MD NO ADDRESS ON FILE Renal Insufficiency; Gouty Arthropathy 04/21/2008 Office Visit [address] [phone] Social History Date Tobacco Use Types Packs/Day Years Used Never Smoker Drinks/Week oz/Week Comments Alcohol Use No Sex Assigned at Date Recorded Not on file documented as of this encounter Last Filed Vital Signs Reading Time Taken Comments Vital Sign 120/80 04/21/2008 3:32 PM MILL HAND Blood Pressure - - Pulse 37.8 C (100 F) 04/21/2008 3:32 PM MILL HAND Temperature - - Respiratory Rate - - Oxygen Saturation - - Inhaled Oxygen Concentration 63.3 kg (139 lb 8 oz) 04/21/2008 3:32 PM MILL HAND Weight - - Height - - Body Mass Index documented in this encounter Progress Notes * Goyo Aguayo MD - 04/21/2008 8:50 PM MILL HAND HISTORY OF PRESENT ILLNESS Era Viveros, a 67 y.o. female. HPI here today to follow up gouty arthritis. No more lateral right foot and ankl e. Pain or erythema. REVIEW OF SYSTEMS Review of Systems Constitutional: Negative for fever, chills, weight loss and malaise/fatigue. HENT: Negative for nosebleeds, congestion, sore throat and ear discharge. Eyes: Negative. Respiratory: Negative for cough and shortness of breath. Cardiovascular: Negative for chest pain and palpitations. Gastrointestinal: Negative for nausea, vomiting, abdominal pain, diarrhea and me nay. Genitourinary: Negative for dysuria, urgency, frequency and hematuria. Musculoskeletal: Negative for myalgias and back pain. Skin: Negative for rash. Neurological: Negative for dizziness and weakness. Endo/Heme/Allergies: Does not bruise/bleed easily. PHYSICAL EXAM BP 116/74 | Pulse 96 | Temp(Src) 100.1 F (37.8 C) (Tympanic) | Wt 140 lb (63 .504 kg) Physical Exam Nursing note and vitals reviewed. Constitutional: She is oriented. She appears well-developed and well-nourished. No distress. HENT: Head: Normocephalic and atraumatic. Right Ear: [...] of motion. Neurological: She is alert and oriented. Skin: Skin is warm and dry. Lab Results Component Value Date/Time SODIUM 140 04/12/08 4:00 PM POTASSIUM 3.5 04/12/08 4:00 PM CHLORIDE 108 04/12/08 4:00 PM CO2 22.2 04/12/08 4:00 PM CALCIUM 9.3 04/12/08 4:00 PM BUN 19.0 04/12/08 4:00 PM CREATININE 1.60 04/12/08 4:00 PM GLUCOSE 88 04/12/08 4:00 PM TOTAL PROTEIN 7.7 04/12/08 4:00 PM ALBUMIN 3.6 04/12/08 4:00 PM BILIRUBIN TOTAL 0.2 04/12/08 4:00 PM ALKALINE PHOSPHATASE 80 04/12/08 4:00 PM AST 12 04/12/08 4:00 PM ALT 31 04/12/08 4:00 PM ANION GAP 13 04/12/08 4:00 PM BUN/CREAT RATIO 11.9 04/12/08 4:00 PM ASSESSMENT and PLAN: [id number] bid, follow up 1 month with CMP and uric acid HAND documented in this encounter Plan of Treatment Not on filedocumented as of this encounter Visit Diagnoses Diagnosis Renal insufficiency Unspecified disorder of kidney and uret er Gouty arthropathy documented in this encounter"
--- OUTSIDE RECORDS SUMMARY | 2019-08-19 16:15 | XMS REPORT | Encounter Summary ---
Author Author [facility] Organization [facility] Address Unknown Phone Unavailable Care Team Providers Care Manager Packaging Name Role Phone Carlotta Aguayo MD PCP Unavailable Self, Bradly Ayala MD PCP Encounter Details Care Team Description Date Type Department Carlotta Aguayo MD NO ADDRESS ON FILE 07/21/2004 Outpatient [facility] Historical Social History Date Tobacco Use Types Packs/Day Years Used Never Assessed Sex Assigned at Date Recorded Not on file documented as of this encounter Plan of Treatment Not on filedocumented as of this encounter Procedures Comments Procedure Name Priority Date/Time Associated Diag nosis CBC WITH DIFFERENTIAL Routine 07/21/2004 4:00 PM CDT documented in this encounter Results * CBC WITH DIFFERENTIAL (07/21/2004 4:00 PM CDT) WBC 9.9 4.0 - 10.8 x10E3 INTERFACE SYSTEM RBC 4.56 4.2 - 5.4 x10E6 INTERFACE SYSTEM HEMOGLOBIN 13.3 12.0 - 16.0 g/dL INTERFACE SYSTEM HEMATOCRIT 39.7 37 - 47 % INTERFACE SYSTEM MCV 87.0 81.0 - 99.0 fL INTERFACE SYSTEM MCH 29.1 27 - 33 pg INTERFACE SYSTEM MCHC 33.5 32 - 35 g/dL INTERFACE SYSTEM RDW 15.2 12.1 - 16.7 % INTERFACE SYSTEM PLATELETS 239 130 - 400 x10E3 INTERFACE SYSTEM NEUTROPHILS 60.8 37.0 - 75.0 % INTERFACE SYSTEM MONOCYTES 6.2 0.0 - 12.0 % INTERFACE SYSTEM EOSINOPHILS 1.8 0.0 - 7.0 % INTERFACE SYSTEM BASOPHILS 0.8 0.0 - 2.5 % INTERFACE SYSTEM NEUTROPHIL 6.0 2.0 - 6.9 x10E3 INTERFACE ABSOLUTE SYSTEM MONOCYTE 0.6 0.0 - 0.9 x10E3 INTERFACE ABSOLUTE SYSTEM EOSINOPHIL 0.2 0.0 - 0.7 x10E3 INTERFACE ABSOLUTE SYSTEM BASOPHILS 0.1 0 - 0.2 x10E3 INTERFACE ABSOLUTE SYSTEM Specimen Performing Organization Address City/State/Zipcode Ph one Number INTERFACE SYSTEM INTERFACE SYSTEM Refer to clinic/hospital department documented in this encounter Visit Diagnoses Not on filedocumented in this encounter
--- OUTSIDE RECORDS SUMMARY | 2019-08-19 16:15 | XMS REPORT | Encounter Summary ---
Author Author [facility] Organization [facility] Address Unknown Phone Unavailable Care Team Providers Care Family And Divorce Legal Assistant Name Role Phone Carlotta Aguayo MD PCP Unavailable Self, Bradly Ayala MD PCP Encounter Details Care Team Description Date Type Department Carlotta Aguayo MD NO ADDRESS ON FILE Unspecified Essential Hypertension (Prim leatha Dx) 11/04/2006 Outpatient [facility] Consol idated Historical [address] [address] Social History Date Tobacco Use Types Packs/Day Years Used Never Assessed Sex Assigned at Date Recorded Not on file documented as of this encounter Plan of Treatment Not on filedocumented as of this encounter Visit Diagnoses Diagnosis Unspecified essential hypertension documented in this encounter
--- OUTSIDE RECORDS SUMMARY | 2019-08-19 16:15 | XMS REPORT | Encounter Summary ---
Author Author [facility] Organization [facility] Address Unknown Phone Unavailable Care Team Providers Care Salon Professional Name Role Phone Carlotta Aguayo MD PCP Unavailable Reason for Visit * Reason Comments Results cmp,lipid Follow Up Encounter Details Care Team Description Date Type Department Carlotta Aguayo MD NO ADDRESS ON FILE Gouty Arthropathy; Hyperlipidemia; Renal Insufficiency 03/17/2008 Office Visit [address] [address] Social History Date Tobacco Use Types Packs/Day Years Used Never Smoker Drinks/Week oz/Week Comments Alcohol Use No Sex Assigned at Date Recorded Not on file documented as of this encounter Last Filed Vital Signs Reading Time Taken Comments Vital Sign 116/74 03/17/2008 3:27 PM DRY FOOD PRODUCTS MIXER Blood Pressure 96 03/17/2008 3:27 PM DRY FOOD PRODUCTS MIXER Pulse 37.8 C (100.1 F) 03/17/2008 3:27 PM DRY FOOD PRODUCTS MIXER Temperature - - Respiratory Rate - - Oxygen Saturation - - Inhaled Oxygen Concentration 63.5 kg (140 lb) 03/17/2008 3:27 PM DRY FOOD PRODUCTS MIXER Weight - - Height - - Body Mass Index documented in this encounter Progress Notes * Goyo Aguayo MD - 03/17/2008 8:33 PM DRY FOOD PRODUCTS MIXER HISTORY OF PRESENT ILLNESS Era Viveros, a 67 y.o. female. HPI here today to follow up hypertension and hyperlipidemia. Feels well with no complaints. Recent episodes of gout being treated with indocin. REVIEW OF SYSTEMS Review of Systems Constitutional: [...] dry. Lab Results Component Value Date/Time SODIUM 141 03/09/08 7:42 AM POTASSIUM 3.4 03/09/08 7:42 AM CHLORIDE 105 03/09/08 7:42 AM CO2 23.9 03/09/08 7:42 AM CALCIUM 9.4 03/09/08 7:42 AM BUN 25.0 03/09/08 7:42 AM CREATININE 2.00 03/09/08 7:42 AM GLUCOSE 106 03/09/08 7:42 AM TOTAL PROTEIN 8.0 03/09/08 7:42 AM ALBUMIN 4.1 03/09/08 7:42 AM BILIRUBIN TOTAL 0.4 03/09/08 7:42 AM ALKALINE PHOSPHATASE 89 03/09/08 7:42 AM AST 12 03/09/08 7:42 AM ALT 32 03/09/08 7:42 AM ANION GAP 16 03/09/08 7:42 AM BUN/CREAT RATIO 12.5 03/09/08 7:42 AM Lab Results Component Value Date/Time CHOLESTEROL 242 03/09/08 7:42 AM HDL 72 03/09/08 7:42 AM LDL CHOLESTEROL, DIRECT 150 03/09/08 7:42 AM TRIGLYCERIDE 121 03/09/08 7:42 AM ASSESSMENT and PLAN: Encounter Diagnoses Code Name Primary? Qualifier 274.0 Gouty Arthropathy Plan: ALLOPURINOL 300 MG TAB 272.4S Hyperlipidemia 593.9CV Renal Insufficiency DC indocin and dyazide. Allopurinol started. follow up 1 month FOOD PRODUCTS MIXER documented in this encounter Plan of Treatment Not on filedocumented as of this encounter Visit Diagnoses Diagnosis Gouty arthropathy Hyperlipidemia Other and unspecified hyperlipidemia Renal insufficiency Unspecified disorder of kidney and uret er documented in this encounter"
--- OUTSIDE RECORDS SUMMARY | 2019-08-19 16:15 | XMS REPORT | Encounter Summary ---
Author Author [facility] Organization [facility] Address Unknown Phone Unavailable Care Team Providers Care Measurement Coordinator Name Role Phone Carlotta Aguayo MD PCP Unavailable Self, Bradly Ayala MD PCP Encounter Details Care Team Description Date Type Department Carlotta Aguayo MD NO ADDRESS ON FILE ROUTINE TUBE FORMER OPERATOR EXAMINATION (Primary Dx) 07/21/2004 Outpatient [facility] Consol idated Historical [address] [address] Social History Date Tobacco Use Types Packs/Day Years Used Never Assessed Sex Assigned at Date Recorded Not on file documented as of this encounter Plan of Treatment Not on filedocumented as of this encounter Visit Diagnoses Diagnosis Routine gynecological examination documented in this encounter
--- OUTSIDE RECORDS SUMMARY | 2019-08-19 16:15 | XMS REPORT | Encounter Summary ---
Author Author [facility] Organization [facility] Address Unknown Phone Unavailable Care Team Providers Care Slat Basket Top Maker Name Role Phone PCP Unavailable Encounter Details Care Team Description Date Type Department Conversion, History 01/01/2008 Orders Only HIS CONVERSION Social History Date Tobacco Use Types Packs/Day Years Used Never Assessed Sex Assigned at Date Recorded Not on file documented as of this encounter Progress Notes * Tyrone Duke Transcriptions - 01/07/2008 3:05 PM CDT 3 :05 PM CDT documented in this encounter Plan of Treatment Not on filedocumented as of this encounter Visit Diagnoses Not on filedocumented in this encounter
--- OUTSIDE RECORDS SUMMARY | 2019-08-19 16:15 | XMS REPORT | Encounter Summary ---
Author Author [facility] Organization [facility] Address Unknown Phone Unavailable Care Team Providers Care Management Nurse Rn Name Role Phone Carlotta Aguayo MD PCP Unavailable Reason for Visit * Reason Comments Foot Pain left, swelled,red started 03/19/08 Encounter Details Care Team Description Date Type Department Carlotta Aguayo MD NO ADDRESS ON FILE Gouty Arthropathy (Primary Dx) 03/23/2008 Office Visit [facility]ar [address] [address] Social History Date Tobacco Use Types Packs/Day Years Used Never Smoker Drinks/Week oz/Week Comments Alcohol Use No Sex Assigned at Date Recorded Not on file documented as of this encounter Last Filed Vital Signs Reading Time Taken Comments Vital Sign 120/86 03/23/2008 3:23 PM TRAINING PROJECT MANAGER Blood Pressure 100 03/23/2008 3:23 PM TRAINING PROJECT MANAGER Pulse 38.5 C (101.3 F) 03/23/2008 3:23 PM TRAINING PROJECT MANAGER Temperature - - Respiratory Rate - - Oxygen Saturation - - Inhaled Oxygen Concentration - - Weight - - Height - - Body Mass Index documented in this encounter Progress Notes * Goyo Aguayo MD - 03/23/2008 8:53 PM TRAINING PROJECT MANAGER HISTORY OF PRESENT ILLNESS Era Viveros, a 67 y.o. female. HPI here today to follow up gouty arthritis.. Increasing lateral right foot and ankle. Great toe framing machine tender. REVIEW OF SYSTEMS Review of Systems Constitutional: [...] Code Name Primary? Qualifier 274.0 Gouty Arthropathy Yes Plan: METHYLPREDNISOLONE ACETATE 80 MG INJECTION Continue allopurinol NING PROJECT MANAGER documented in this encounter Plan of Treatment Not on filedocumented as of this encounter Visit Diagnoses Diagnosis Gouty arthropathy documented in this encounter"
--- OUTSIDE RECORDS SUMMARY | 2019-08-19 16:15 | XMS REPORT | Encounter Summary ---
Author Author [facility] Organization [facility] Address Unknown Phone Unavailable Care Team Providers Care Drilling Field Professional Name Role Phone Carlotta Aguayo MD PCP Unavailable Self, Bradly Ayala MD PCP Encounter Details Care Team Description Date Type Department Carlotta Aguayo MD NO ADDRESS ON FILE Inflamed Seborrheic Keratosis (Primary D x) 03/07/2006 Outpatient [facility] Consol [address] [address] Social History Date Tobacco Use Types Packs/Day Years Used Never Assessed Sex Assigned at Date Recorded Not on file documented as of this encounter Plan of Treatment Not on filedocumented as of this encounter Visit Diagnoses Diagnosis Inflamed seborrheic keratosis documented in this encounter
--- OUTSIDE RECORDS SUMMARY | 2019-08-19 16:15 | XMS REPORT | Encounter Summary ---
Author Author [facility] Organization [facility] Address Unknown Phone Unavailable Care Team Providers Care Human Services Program Specialist Name Role Phone Carlotta Aguayo MD PCP Unavailable Self, Bradly Ayala MD PCP Encounter Details Care Team Description Date Type Department Carlotta Aguayo MD NO ADDRESS ON FILE Unspecified Essential Hypertension (Prim leatha Dx) 07/12/2005 Outpatient [facility] Consol idated Historical [address] [address] Social History Date Tobacco Use Types Packs/Day Years Used Never Assessed Sex Assigned at Date Recorded Not on file documented as of this encounter Plan of Treatment Not on filedocumented as of this encounter Visit Diagnoses Diagnosis Unspecified essential hypertension documented in this encounter
--- OUTSIDE RECORDS SUMMARY | 2019-08-19 16:15 | XMS REPORT | Encounter Summary ---
Author Author [facility] Organization [facility] Address Unknown Phone Unavailable Care Team Providers Care Boiler Erector Name Role Phone Carlotta Aguayo MD PCP Unavailable Self, Bradly Ayala MD PCP Encounter Details Care Team Description Date Type Department Carlotta Aguayo MD NO ADDRESS ON FILE Unspecified Osteoporosis (Primary Dx) 09/18/2006 Outpatient [facility] Consol idated Historical [address] [address] Social History Date Tobacco Use Types Packs/Day Years Used Never Assessed Sex Assigned at Date Recorded Not on file documented as of this encounter Plan of Treatment Not on filedocumented as of this encounter Visit Diagnoses Diagnosis Osteoporosis, unspecified documented in this encounter
--- OUTSIDE RECORDS SUMMARY | 2019-08-19 16:15 | XMS REPORT | Encounter Summary ---
Author Author [facility] Organization [facility] Address Unknown Phone Unavailable Care Team Providers Care Golf Caddy Name Role Phone Carlotta Aguayo MD PCP Unavailable Self, Bradly Ayala MD PCP Encounter Details Care Team Description Date Type Department Leisure, Francois Ramos APRN NO ADDRESS ON FILE Injury, Other and Unspecified, Knee, Leg , Ankle, and Foot (Primary Dx) [facility] [address] [phone] Social History Date Tobacco Use Types Packs/Day Years Used Never Assessed Sex Assigned at Date Recorded Not on file documented as of this encounter Plan of Treatment Not on filedocumented as of this encounter Visit Diagnoses Diagnosis Injury, other and unspecified, knee, le g, ankle, and foot documented in this encounter
--- OUTSIDE RECORDS SUMMARY | 2019-08-19 16:15 | XMS REPORT | Encounter Summary ---
Author Author [facility] Organization [facility] Address Unknown Phone Unavailable Care Team Providers Care Core Winding Operator Name Role Phone Carlotta Aguayo MD PCP Unavailable Self, Bradly Ayala MD PCP Encounter Details Care Team Description Date Type Department Carlotta Aguayo MD NO ADDRESS ON FILE BREAST DISORDERS NEC (Primary Dx) [facility] [address] [address] Social History Date Tobacco Use Types Packs/Day Years Used Never Assessed Sex Assigned at Date Recorded Not on file documented as of this encounter Plan of Treatment Not on filedocumented as of this encounter Visit Diagnoses Diagnosis Other specified disorder of breast documented in this encounter
--- OUTSIDE RECORDS SUMMARY | 2019-08-19 16:15 | XMS REPORT | Encounter Summary ---
Author Author [facility] Organization [facility] Address Unknown Phone Unavailable Care Team Providers Care Automotive Professional Name Role Phone Carlotta Aguayo MD PCP Unavailable Self, Bradly Ayala MD PCP Encounter Details Care Team Description Date Type Department Carlotta Aguayo MD NO ADDRESS ON FILE Other Screening Mammogram (Primary Dx) 08/09/2006 Outpatient [facility] [address] [address] Social History Date Tobacco Use Types Packs/Day Years Used Never Assessed Sex Assigned at Date Recorded Not on file documented as of this encounter Plan of Treatment Not on filedocumented as of this encounter Visit Diagnoses Diagnosis Other screening mammogram documented in this encounter
--- OUTSIDE RECORDS SUMMARY | 2019-08-19 16:15 | XMS REPORT | Encounter Summary ---
Author Author [facility] Organization [facility] Address Unknown Phone Unavailable Care Team Providers Care Exit Booth Agent Name Role Phone Carlotta Aguayo MD PCP Unavailable Reason for Visit * Reason Comments Follow Up 4 wk fu Results lab last week Foot Pain fu, left Encounter Details Care Team Description Date Type Department Carlotta Aguayo MD NO ADDRESS ON FILE Gouty Arthropathy; Chronic Renal Insufficiency, Stage I; Menopausal Disorder 05/24/2008 Office Visit [facility] Primar [address] [address] Social History Date Tobacco Use Types Packs/Day Years Used Never Smoker Drinks/Week oz/Week Comments Alcohol Use No Sex Assigned at Date Recorded Not on file documented as of this encounter Last Filed Vital Signs Reading Time Taken Comments Vital Sign 120/84 05/24/2008 2:48 PM ENERGY ECONOMIST Blood Pressure - - Pulse 37.8 C (100 F) 05/24/2008 2:48 PM ENERGY ECONOMIST Temperature - - Respiratory Rate - - Oxygen Saturation - - Inhaled Oxygen Concentration 65.3 kg (144 lb) 05/24/2008 2:48 PM ENERGY ECONOMIST Weight - - Height - - Body Mass Index documented in this encounter Progress Notes * Goyo Aguayo MD - 05/25/2008 10:33 PM ENERGY ECONOMIST HISTORY OF PRESENT ILLNESS Era Viveros, a 67 y.o. female. HPI here today with concerns over needing to continue on Evista as SROM, underly ing renal insufficiency with gout and hyperuricemia, adverse reaction to allopur inol, tolerating Probenicin. REVIEW OF SYSTEMS Review of Systems Constitutional: Negative for fever, chills and weight loss. HENT: Negative for nosebleeds, congestion, sore throat and ear discharge. Eyes: Negative. Respiratory: Negative for cough and shortness of breath. Cardiovascular: Negative for chest pain. Gastrointestinal: Negative for nausea, vomiting and diarrhea. Skin: Negative for rash. PHYSICAL EXAM BP 120/84 | Temp 100 F (37.8 C) | Wt 144 lb (65.318 kg) Physical Exam Nursing note and vitals reviewed. Constitutional: She is oriented. She appears well-developed and well-nourished. HENT: Head: [...] are normal. Musculoskeletal: Normal range of motion. Foot pain resolved Neurological: She is alert and oriented. Skin: Skin is warm and dry. Lab Results Component Value Date/Time SODIUM 139 05/19/08 7:24 AM POTASSIUM 3.8 05/19/08 7:24 AM CHLORIDE 107 05/19/08 7:24 AM CO2 23.9 05/19/08 7:24 AM CALCIUM 8.9 05/19/08 7:24 AM BUN 16.0 05/19/08 7:24 AM CREATININE 1.90 05/19/08 7:24 AM GLUCOSE 91 05/19/08 7:24 AM TOTAL PROTEIN 7.2 05/19/08 7:24 AM ALBUMIN 3.5 05/19/08 7:24 AM BILIRUBIN TOTAL 0.3 05/19/08 7:24 AM ALKALINE PHOSPHATASE 89 05/19/08 7:24 AM AST 18 05/19/08 7:24 AM ALT 33 05/19/08 7:24 AM ANION GAP 12 05/19/08 7:24 AM BUN/CREAT RATIO 8.4 05/19/08 7:24 AM ASSESSMENT and PLAN: Encounter Diagnoses Code Name Primary? Qualifier 274.0 Gouty Arthropathy Plan: ALLOPURINOL 300 MG TAB 585.1E Chronic Renal Insufficiency, Stage I 627.9B Menopausal Disorder Plan: RALOXIFENE 60 MG TAB allopurinol replaced with Probenecin GY ECONOMIST documented in this encounter Plan of Treatment Not on filedocumented as of this encounter Visit Diagnoses Diagnosis Gouty arthropathy Chronic renal insufficiency, stage I Chronic kidney disease, Stage I Menopausal disorder Unspecified menopausal and postmenopaus al disorder documented in this encounter"
--- OUTSIDE RECORDS SUMMARY | 2019-08-19 16:15 | XMS REPORT | Encounter Summary ---
Author Author [facility] Organization [facility] Address Unknown Phone Unavailable Care Team Providers Care Wet Cotton Feeder Name Role Phone Carlotta Aguayo MD PCP Unavailable Self, Bradly Ayala MD PCP Encounter Details Care Team Description Date Type Department Carlotta Aguayo MD NO ADDRESS ON FILE [facility] [address] [address] Social History Date Tobacco Use Types Packs/Day Years Used Never Assessed Sex Assigned at Date Recorded Not on file documented as of this encounter Plan of Treatment Not on filedocumented as of this encounter Visit Diagnoses Not on filedocumented in this encounter
--- OUTSIDE RECORDS SUMMARY | 2019-08-19 16:15 | XMS REPORT | Encounter Summary ---
Author Author [facility] Organization [facility] Address Unknown Phone Unavailable Care Team Providers Care Curator Horticultural Museum Name Role Phone Carlotta Aguayo MD PCP Unavailable Reason for Visit * Reason Comments Foot Swelling left, red ongoing, this ti me since Saturday am Encounter Details Care Team Description Date Type Department Carlotta Aguayo MD NO ADDRESS ON FILE Foot Pain; Gouty Arthropathy 04/12/2008 Office Visit [facility] [address] [address] Social History Date Tobacco Use Types Packs/Day Years Used Never Smoker Drinks/Week oz/Week Comments Alcohol Use No Sex Assigned at Date Recorded Not on file documented as of this encounter Last Filed Vital Signs Reading Time Taken Comments Vital Sign 118/80 04/12/2008 3:23 PM PACKAGE REINSPECTOR Blood Pressure 92 04/12/2008 3:23 PM PACKAGE REINSPECTOR Pulse 38.1 C (100.6 F) 04/12/2008 3:23 PM PACKAGE REINSPECTOR Temperature - - Respiratory Rate - - Oxygen Saturation - - Inhaled Oxygen Concentration - - Weight - - Height - - Body Mass Index documented in this encounter Progress Notes * Goyo Aguayo MD - 04/12/2008 8:21 PM PACKAGE REINSPECTOR HISTORY OF PRESENT ILLNESS Era Viveros, a 67 y.o. female. HPI here today to follow up gouty arthritis.. Increasing lateral right foot and ankle. More lateral foot pain with erythema today REVIEW OF SYSTEMS Review of Systems Constitutional: [...] oriented. Skin: Skin is warm and dry. ASSESSMENT and PLAN: Encounter Diagnoses Code Name Primary? Qualifier 729.5E Foot Pain Plan: COMPREHENSIVE METABOLIC PANEL, URIC ACID 274.0 Gouty Arthropathy Plan: METHYLPREDNISOLONE 80 MG/ML SUSP FOR INJECTION, METHYLPREDNISOLONE ACETAT E 80 MG INJECTION, URIC ACID [id number] AGE REINSPECTOR documented in this encounter Plan of Treatment Not on filedocumented as of this encounter Results * URIC ACID (04/12/2008 4:00 PM PACKAGE REINSPECTOR) URIC ACID 5.5Comment: [facility] 2.6 - 6.0 mg/dl [facility] ACCT#[id number], ,,,, [facility] [place] [facility] Specimen Blood specimen (specimen) Performing Organization Address City/State/Zipcode Ph one Number INTERFACE SYSTEM [facility] [place]# [id number] Jose De Jesus [place] [address] INDU LAB [address] * COMPREHENSIVE METABOLIC PANEL (04/12/2008 4:00 PM PACKAGE REINSPECTOR) GLUCOSE 88 70 - 110 mg/dl [facility] IN[facility] BUN 19.0 7 - 20 mg/dl [facility] CREATININE 1.60 (H) 0.6 - 1.0 mg/dl [facility] BUN/CREAT RATIO 11.9 10 - 20 [facility] GFR 34 >90 ml/min [facility] SODIUM 140 135 - 145 mmol/L [facility] POTASSIUM 3.5 3.3 - 4.8 mmol/L [facility] CHLORIDE 108 (H) 98 - 107 mmol/L [facility] CO2 22.2 22 - 31 mmol/L [facility] ANION GAP 13 4 - 20 [facility] INDU LAB CALCIUM 9.3 8.5 - 10.1 mg/dl [facility] ALBUMIN 3.6 3.4 - 5.0 g/dl [facility] TOTAL PROTEIN 7.7 6.4 - 8.2 g/dl [facility] GLOBULIN (CALC) 4.1 [facility] ALBUMIN/GLOBULI 0.9 [facility] BILIRUBIN TOTAL 0.2 <1.1 mg/dl [facility] INDU LAB ALKALINE 80 50 - 136 IU/L [facility] PHOSPHATASE [facility] AST 12 10 - 40 IU/L [facility] ALT 31Comment: [facility],[place] 25 - 70 IU/L [facility] ACCT#[id number], ,,,, [facility] [place] [place] [facility] Specimen Blood specimen (specimen) Performing Organization Address City/State/Zipcode Ph one Number INTERFACE [facility] [place]# [id number] Jose De Jesus [place] [address] INDU LAB [address] [facility] documented in this encounter Visit Diagnoses Diagnosis Foot pain Pain in limb Gouty arthropathy documented in this encounter"
--- OUTSIDE RECORDS SUMMARY | 2019-08-19 16:15 | XMS REPORT | Encounter Summary ---
Author Author [facility] Organization [facility] Address Unknown Phone Unavailable Care Team Providers Care Poultryman Name Role Phone Carlotta Aguayo MD PCP Unavailable Self, Bradly Ayala MD PCP Encounter Details Care Team Description Date Type Department Carlotta Aguayo MD NO ADDRESS ON FILE 07/12/2005 Outpatient [facility] [address] [facility] Historical Social History Date Tobacco Use Types Packs/Day Years Used Never Assessed Sex Assigned at Date Recorded Not on file documented as of this encounter Plan of Treatment Not on filedocumented as of this encounter Procedures Comments Procedure Name Priority Date/Time Associated Diag nosis COMPREHENSIVE METABOLIC Routine 07/12/2005 PANEL 4:30 PM CDT documented in this encounter Results * COMPREHENSIVE METABOLIC PANEL (07/12/2005 4:30 PM CDT) GLUCOSE 87 70 - 110 mg/dl [facility] BUN 19.0 7 - 20 mg/dl [facility] CREATININE 1.3 (H) 0.6 - 1.0 mg/dl [facility] BUN/CREAT RATIO 14.6 10 - 20 [facility] SODIUM 141 135 - 145 mmol/L [facility] POTASSIUM 4.1 3.5 - 5.1 mmol/L [facility] CHLORIDE 107 98 - 107 mmol/L [facility] CO2 20.1 (L) 22 - 31 mmol/L [facility] ANION GAP 18 4 - 20 [facility] CALCIUM 9.1 8.5 - 10.1 mg/dl [facility] ALBUMIN 4.2 3.4 - 5.0 g/dl [facility] TOTAL PROTEIN 7.7 6.4 - 8.2 g/dl [facility] GLOBULIN (CALC) 3.5 [facility] ALBUMIN/GLOBULI 1.2 INTERFACE N RATIO SYSTEM BILIRUBIN TOTAL 0.2 <1.1 mg/dl [facility] ALKALINE 129 50 - 136 IU/L INTERFACE PHOSPHATASE SYSTEM AST 19 10 - 40 IU/L [facility] ALT 36 25 - 70 IU/L [facility] Specimen Performing Organization Address City/State/Zipcode Ph one Number INTERFACE SYSTEM INTERFACE SYSTEM Refer to clinic/hospital department documented in this encounter Visit Diagnoses Not on filedocumented in this encounter
--- OUTSIDE RECORDS SUMMARY | 2019-08-19 16:15 | XMS REPORT | Encounter Summary ---
Author Author [facility] Organization [facility] Address Unknown Phone Unavailable Care Team Providers Care Iron Worker Foreman Name Role Phone Carlotta Aguayo MD PCP Unavailable Encounter Details Care Team Description Date Type Department [facility], Lab Schedule 04/12/2008 [facility] General Encounter Laboratory Services [address] [address] Social History Date Tobacco Use Types Packs/Day Years Used Never Smoker Drinks/Week oz/Week Comments Alcohol Use No Sex Assigned at Date Recorded Not on file documented as of this encounter Medications at Time of Discharge Start Date End Date Medication Sig Dispensed Refills 04/12/2008 04/30/2008 COLCHICINE/PROBENECID Take 1 Tab by 50 Tab 3 (COLCHICINE-PROBENECID) mouth daily. 0.5-500 mg Oral Tab 05/24/2008 EVISTA 60 mg Oral Tab Take 60 mg by 0 mouth daily. 09/02/2008 PROCARDIA XL 30 mg Oral Take 30 mg by 0 TO24 mouth daily. documented as of this encounter Plan of Treatment Not on filedocumented as of this encounter Procedures Comments Procedure Name Priority Date/Time Associated Diag nosis URIC ACID Routine 04/12/2008 Foot Pain 4:00 PM GLUE SPRAYER Gouty Arthropathy COMPREHENSIVE METABOLIC Routine 04/12/2008 Foot P ain PANEL 4:00 PM GLUE SPRAYER documented in this encounter Results * URIC ACID (04/12/2008 4:00 PM GLUE SPRAYER) URIC ACID 5.5Comment: [facility] 2.6 - 6.0 mg/dl [facility] ACCT#[id number], ,,,, [facility] Specimen Blood specimen (specimen) Performing Organization Address City/[facility] Ph one Number INTERFACE SYSTEM [facility] DIEGOIA# [id number] Jose De Jesus [place] [address] INDU [facility] [address] [facility] * COMPREHENSIVE METABOLIC PANEL (04/12/2008 4:00 PM GLUE SPRAYER) GLUCOSE 88 70 - 110 mg/dl [facility] BUN 19.0 7 - 20 mg/dl [facility] CREATININE 1.60 (H) 0.6 - 1.0 mg/dl [facility] BUN/CREAT RATIO 11.9 10 - 20 [facility] GFR 34 >90 ml/min [facility] SODIUM 140 135 - 145 mmol/L [facility] POTASSIUM 3.5 3.3 - 4.8 mmol/L [facility] CHLORIDE 108 (H) 98 - 107 mmol/L [facility] CO2 22.2 22 - 31 mmol/L [facility] ANION GAP 13 4 - 20 [facility] CALCIUM 9.3 8.5 - 10.1 mg/dl [facility] ALBUMIN 3.6 3.4 - 5.0 g/dl [facility] TOTAL PROTEIN 7.7 6.4 - 8.2 g/dl [facility] GLOBULIN (CALC) 4.1 [facility] ALBUMIN/GLOBULI 0.[address] [facility] BILIRUBIN TOTAL 0.2 <1.1 mg/dl [facility] ALKALINE 80 50 - 136 IU/L [facility] PHOSPHATASE [facility] AST 12 10 - 40 IU/L [facility] ALT 31Comment: [facility] SYSTEMNadirCalVERNKRISTA 25 - 70 IU/L [facility] ACCT#[id number], ,,,, [facility] Specimen Blood specimen (specimen) Performing Organization Address City/[facility] Ph one Number INTERFACE SYSTEM [facility] [place]# [id number] Jose De Jesus [place] [address] [facility] [address] [facility] documented in this encounter Visit Diagnoses Diagnosis Foot pain Pain in limb Gouty arthropathy documented in this encounter
--- OUTSIDE RECORDS SUMMARY | 2019-08-19 16:15 | XMS REPORT | Encounter Summary ---
Author Author [facility] Organization [facility] Address Unknown Phone Unavailable Care Team Providers Care Senior Sales Operations Analyst Name Role Phone Carlotta Aguayo MD PCP Unavailable Reason for Visit * Auth/Cert Referred By Contact Referred To Contact Status Reason Specialty Diagnoses / Procedures [facility] General Laboratory Services [address] [place] [phone] Closed Laboratory Encounter Details Care Team Description Date Type Department Carlotta Aguayo MD NO ADDRESS ON FILE [facility] Schedule 05/19/2008 [facility] General Encounter Laboratory Services [address] [address] Social History Date Tobacco Use Types Packs/Day Years Used Never Smoker Drinks/Week oz/Week Comments Alcohol Use No Sex Assigned at Date Recorded Not on file documented as of this encounter Medications at Time of Discharge Start Date End Date Medication Sig Dispensed Refills 04/30/2008 12/09/2008 COLCHICINE/PROBENECID Take 1 Tab by 60 Tab 3 (COLCHICINE-PROBENECID) mouth 2 times 0.5-500 mg Oral Tab daily. 05/24/2008 EVISTA 60 mg Oral Tab Take 60 mg by 0 mouth daily. 09/02/2008 PROCARDIA XL 30 mg Oral Take 30 mg by 0 TO24 mouth daily. documented as of this encounter Plan of Treatment Not on filedocumented as of this encounter Procedures Comments Procedure Name Priority Date/Time Associated Diag nosis URIC ACID Routine 05/19/2008 Renal Insuffici ency 7:24 AM PERMIT REVIEW ASSISTANT COMPREHENSIVE METABOLIC Routine 05/19/2008 Renal Insufficiency PANEL 7:24 AM PERMIT REVIEW ASSISTANT documented in this encounter Results * URIC ACID (05/19/2008 7:24 AM PERMIT REVIEW ASSISTANT) URIC ACID 3.9Comment: [facility] 2.6 - 6.0 mg/dl [facility] ACCT#[id number], ,,,, [facility] Specimen Blood specimen (specimen) Performing Organization Address City/State/Zipcode Ph one Number [facility] [id number] Jose De Jesus [place] S [address] INDU [facility] [address] [facility] * COMPREHENSIVE METABOLIC PANEL (05/19/2008 7:24 AM PERMIT REVIEW ASSISTANT) GLUCOSE 91 70 - 110 mg/dl [facility] BUN 16.0 7 - 20 mg/dl [facility] CREATININE 1.90 (H) 0.6 - 1.0 mg/dl [facility] BUN/CREAT RATIO 8.4 (L) 10 - 20 [facility] GFR 28 >90 ml/min [facility] SODIUM 139 135 - 145 mmol/L [facility] POTASSIUM 3.8 3.3 - 4.8 mmol/L [facility] CHLORIDE 107 98 - 107 mmol/L [facility] CO2 23.9 22 - 31 mmol/L [facility] ANION GAP 12 4 - 20 [facility] CALCIUM 8.9 8.5 - 10.1 mg/dl [facility] ALBUMIN 3.5 3.4 - 5.0 g/dl [facility] TOTAL PROTEIN 7.2 6.4 - 8.2 g/dl [facility] GLOBULIN (CALC) 3.7 [facility] ALBUMIN/GLOBULI 0.9 [facility] BILIRUBIN TOTAL 0.3 <1.1 mg/dl [facility] ALKALINE 89 50 - 136 IU/L [facility] PHOSPHATASE [facility] AST 18 10 - 40 IU/L [facility] ALT 33Comment: KRISTA TONG 25 - 70 IU/L [facility] ACCT#[id number], ,,,, [facility] Specimen Blood specimen (specimen) Performing Organization Address City/State/Zipcode Ph one Number INTERFACE SYSTEM [facility] [place]# [id number] Jose De Jesus [place] S [address] INDU LAB [address] [facility] documented in this encounter Visit Diagnoses Diagnosis Renal insufficiency Unspecified disorder of kidney and uret er documented in this encounter
--- OUTSIDE RECORDS SUMMARY | 2019-08-19 16:15 | XMS REPORT | Encounter Summary ---
Author Author [facility] Organization [facility] Address Unknown Phone Unavailable Care Team Providers Care Strap Maker Name Role Phone Carlotta Aguayo MD PCP Unavailable Encounter Details Care Team Description Date Type Department Carlotta Aguayo MD NO ADDRESS ON FILE [facility], Lab Schedule 03/09/2008 [facility] General Encounter Laboratory Services [address] [address] Social History Date Tobacco Use Types Packs/Day Years Used Never Assessed Sex Assigned at Date Recorded Not on file documented as of this encounter Plan of Treatment Not on filedocumented as of this encounter Procedures Comments Procedure Name Priority Date/Time Associated Diag nosis LIPID PANEL Routine 03/09/2008 HTN 7:42 AM MANAGER CONSUMER INSIGHTS COMPREHENSIVE METABOLIC Routine 03/09/2008 HTN PANEL 7:42 AM MANAGER CONSUMER INSIGHTS documented in this encounter Results * COMPREHENSIVE METABOLIC PANEL (03/09/2008 7:42 AM MANAGER CONSUMER INSIGHTS) GLUCOSE 106 70 - 110 mg/dl [facility] BUN 25.0 (H) 7 - 20 mg/dl [facility] CREATININE 2.00 (H) 0.6 - 1.0 mg/dl [facility] BUN/CREAT RATIO 12.5 10 - 20 [facility] GFR 26 >90 ml/min [facility] SODIUM 141 135 - 145 mmol/L [facility] POTASSIUM 3.4 3.3 - 4.8 mmol/L [facility] CHLORIDE 105 98 - 107 mmol/L [facility] CO2 23.9 22 - 31 mmol/L [facility] ANION GAP 16 4 - 20 [facility] CALCIUM 9.4 8.5 - 10.1 mg/dl [facility] ALBUMIN 4.1 3.4 - 5.0 g/dl [facility] TOTAL PROTEIN 8.0 6.4 - 8.2 g/dl [facility] GLOBULIN (CALC) 3.9 [facility] ALBUMIN/GLOBULI 1.1 [facility] N RATIO [facility] BILIRUBIN TOTAL 0.4 <1.1 mg/dl [facility] ALKALINE 89 50 - 136 IU/L [facility] PHOSPHATASE [facility] AST 12 10 - 40 IU/L [facility] ALT 32Comment: [facility] 25 - 70 IU/L [facility] ACCT#[id number], ,,,, [facility] Specimen Blood specimen (specimen) Performing Organization Address City/State/Zipcode Ph one Number [facility] [id number] [facility] [place], Jose De Jesus S [address] INDU LAB [address] [facility] * LIPID PANEL (03/09/2008 7:42 AM MANAGER CONSUMER INSIGHTS) CHOLESTEROL 242 (H) 140 - 200 mg/dl [facility] TRIGLYCERIDE 121 0 - 199 mg/dl [facility] Comment: [facility] REFERENCE [facility] - [facility] TRIGLYCERIDES NORMAL LESS THAN 150 mg/dl B[facility] HIGH 150 - 199 mg/dl HIGH 200 - 499 mg/dl VERY HIGH GREATER THAN OR = 500 mg/dl HDL 72 29 - 89 mg/dl [facility] INDU LAB LDL 150 (H) <130 mg/dl [facility] CHOLESTEROL, Comment: [place] [facility] RISK CATEGORY LDL GOAL High risk: <100 mg/dl CHD or CHD risk equivalents (optional goal: <70 mg/dl) (10-year risk > 20%) Moderately high risk <130 mg/dl 2+ risk factors (10-year risk 10% to 20%) Moderate risk: <130 mg/dl 2+ risk factors (10-year risk < 10%) Lower risk: <160 mg/dl 0-1 risk factor K[facility]STA TONG ACCT#[id number], ,,,, Specimen Blood specimen (specimen) Performing Organization Address City/State/Zipcode Ph one Number INTERFACE SYSTEM [facility] [place]# [id number] Jose De Jesus [place] [address] [address] [place] [address] BLVD documented in this encounter Visit Diagnoses Diagnosis HTN Unspecified essential hypertension documented in this encounter
--- OUTSIDE RECORDS SUMMARY | 2019-08-19 16:15 | XMS REPORT | Encounter Summary ---
Author Author [facility] Organization [facility] Address Unknown Phone Unavailable Care Team Providers Care Publications Manager Name Role Phone Carlotta Aguayo MD PCP Unavailable Reason for Visit * Reason Onset Date Comments Medication Refill 04/30/2008 Encounter Details Care Team Description Date Type Department Carlotta Aguayo MD NO ADDRESS ON FILE 04/30/[address] [address] Social History Date Tobacco Use Types Packs/Day Years Used Never Smoker Drinks/Week oz/Week Comments Alcohol Use No Sex Assigned at Date Recorded Not on file documented as of this encounter Plan of Treatment Not on filedocumented as of this encounter Visit Diagnoses Not on filedocumented in this encounter
--- OUTSIDE RECORDS SUMMARY | 2019-08-19 16:15 | XMS REPORT | Encounter Summary ---
Author Author [facility] Organization [facility] Address Unknown Phone Unavailable Care Team Providers Care Pipeline Controller Name Role Phone Carlotta Aguayo MD PCP Unavailable Reason for Visit * Reason Comments Medication Reaction to med given for gout, pain and rash all over Encounter Details Care Team Description Date Type Department Jcarlos Lin MD [address] [place] [address] Gouty Arthropathy; Rash and Other Nonspecific Skin Eruption 03/26/2008 Office Visit [address] [address] Social History Date Tobacco Use Types Packs/Day Years Used Never Smoker Drinks/Week oz/Week Comments Alcohol Use No Sex Assigned at Date Recorded Not on file documented as of this encounter Last Filed Vital Signs Reading Time Taken Comments Vital Sign 130/78 03/26/2008 8:23 AM CIVIL DRAFTING TECHNICIAN Blood Pressure - - Pulse 36.9 C (98.4 F) 03/26/2008 8:23 AM CIVIL DRAFTING TECHNICIAN Temperature - - Respiratory Rate - - Oxygen Saturation - - Inhaled Oxygen Concentration - - Weight - - Height - - Body Mass Index documented in this encounter Progress Notes * Jcarlos Lin MD - 03/26/2008 8:36 AM CIVIL DRAFTING TECHNICIAN HISTORY OF PRESENT ILLNESS Era Viveros, a 67 y.o. female. Chief Complaint Patient presents with Medication Reaction to med given for gout, pain and rash all over HPI REVIEW OF SYSTEMS Review of Systems Musculoskeletal: Positive for joint pain (foot near achilles tendon). PHYSICAL EXAM BP 130/78 | Temp 98.4 F (36.9 C) Physical Exam Musculoskeletal: She exhibits no edema and no tenderness. Skin: Rash (diffuse especially arms and legs) noted. ASSESSMENT and PLAN: Encounter Diagnoses Code Name Primary? 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
--- OUTSIDE RECORDS SUMMARY | 2019-08-19 16:15 | XMS REPORT | Encounter Summary ---
Author Author [facility] Organization [facility] Address Unknown Phone Unavailable Care Team Providers Care Services Program Manager Name Role Phone Carlotta Aguayo MD PCP Unavailable Self, Bradly Ayala MD PCP Encounter Details Care Team Description Date Type Department Leisure, Francois Ramos APRN NO ADDRESS ON FILE Injury, Other and Unspecified, Knee, Leg , Ankle, and Foot (Primary Dx) 01/30/2007 Outpatient [facility]ven [address] [address] Social History Date Tobacco Use Types Packs/Day Years Used Never Assessed Sex Assigned at Date Recorded Not on file documented as of this encounter Plan of Treatment Not on filedocumented as of this encounter Visit Diagnoses Diagnosis Injury, other and unspecified, knee, le g, ankle, and foot documented in this encounter
--- OUTSIDE RECORDS SUMMARY | 2019-08-19 16:15 | XMS REPORT | Encounter Summary ---
Author Author [facility] Organization [facility] Address Unknown Phone Unavailable Care Team Providers Care Bead Forming Machine Operator Name Role Phone Carlotta Aguayo MD PCP Unavailable Self, Bradly Ayala MD PCP Encounter Details Care Team Description Date Type Department Carlotta Aguayo MD NO ADDRESS ON FILE Unspecified Sleep Disturbance (Primary D x) 08/14/2006 Outpatient [facility] Consol idated Historical [address] [address] Social History Date Tobacco Use Types Packs/Day Years Used Never Assessed Sex Assigned at Date Recorded Not on file documented as of this encounter Plan of Treatment Not on filedocumented as of this encounter Visit Diagnoses Diagnosis Sleep disturbance, unspecified documented in this encounter
--- OUTSIDE RECORDS SUMMARY | 2019-08-19 16:15 | XMS REPORT | Encounter Summary ---
Author Author [facility] Organization [facility] Address Unknown Phone Unavailable Care Team Providers Care Sand System Operator Name Role Phone Carlotta Aguayo MD PCP Unavailable Self, Bradly Ayala MD PCP Encounter Details Care Team Description Date Type Department Carlotta Aguayo MD NO ADDRESS ON FILE Asymptomatic Postmenopausal Status (Age- Related) (Natural) (Primary Dx) 08/20/2006 Outpatient [facility] [address] [address] Social History Date Tobacco Use Types Packs/Day Years Used Never Assessed Sex Assigned at Date Recorded Not on file documented as of this encounter Plan of Treatment Not on filedocumented as of this encounter Visit Diagnoses Diagnosis Asymptomatic postmenopausal status (age -related) (natural) documented in this encounter
--- OUTSIDE RECORDS SUMMARY | 2019-08-19 16:16 | XMS REPORT | Encounter Summary ---
Author Author [facility] Organization [facility] Address Unknown Phone Unavailable Care Team Providers Care Press Writer Name Role Phone Carlotta Aguayo MD PCP Unavailable Self, Bradly Ayala MD PCP Encounter Details Care Team Description Date Type Department Iona Morocho, SOLE RUFFER [address] [place] [address] 05/24/2003 Outpatient [facility] [address] REF LAB Historical Social History Date Tobacco Use Types Packs/Day Years Used Never Assessed Sex Assigned at Date Recorded Not on file documented as of this encounter Plan of Treatment Not on filedocumented as of this encounter Visit Diagnoses Not on filedocumented in this encounter
--- OUTSIDE RECORDS SUMMARY | 2019-08-19 16:16 | XMS REPORT | Encounter Summary ---
Author Author [facility] Organization [facility] Address Unknown Phone Unavailable Care Team Providers Care Deputy Felony Clerk Name Role Phone aCrlotta Aguayo MD PCP Unavailable Self, Bradly Ayala MD PCP Encounter Details Care Team Description Date Type Department Carlotta Aguayo MD NO ADDRESS ON FILE 10/08/2001 [facility] Pathology [address] [place] [address] Social History Date Tobacco Use Types Packs/Day Years Used Never Assessed Sex Assigned at Date Recorded Not on file documented as of this encounter Plan of Treatment Not on filedocumented as of this encounter Visit Diagnoses Not on filedocumented in this encounter
--- OUTSIDE RECORDS SUMMARY | 2019-08-19 16:16 | XMS REPORT | Encounter Summary ---
Author Author [facility] Organization [facility] Address Unknown Phone Unavailable Care Team Providers Care Sodder Name Role Phone Carlotta Aguayo MD PCP Unavailable Self, Bradly Ayala MD PCP Encounter Details Care Team Description Date Type Department Iona Morocho, INSULATION ESTIMATOR [address] [place] [address] GOUT NOS (Primary Dx) 04/08/2003 Outpatient [facility] Consol idated Historical [address] [address] Social History Date Tobacco Use Types Packs/Day Years Used Never Assessed Sex Assigned at Date Recorded Not on file documented as of this encounter Plan of Treatment Not on filedocumented as of this encounter Visit Diagnoses Diagnosis Gout, unspecified documented in this encounter
--- OUTSIDE RECORDS SUMMARY | 2019-08-19 16:16 | XMS REPORT | Encounter Summary ---
Author Author [facility] Organization [facility] Address Unknown Phone Unavailable Care Team Providers Care Rotary Furnace Tender Name Role Phone Carlotta Aguayo MD PCP Unavailable Self, Bradly Ayala MD PCP Encounter Details Care Team Description Date Type Department Carlotta Aguayo MD NO ADDRESS ON FILE SCREENING MAMM-MAILG NEOPL-OTHER (Primar y Dx) 06/01/2003 Outpatient Historical Social History Date Tobacco Use Types Packs/Day Years Used Never Assessed Sex Assigned at Date Recorded Not on file documented as of this encounter Plan of Treatment Not on filedocumented as of this encounter Visit Diagnoses Diagnosis Other screening mammogram documented in this encounter
--- OUTSIDE RECORDS SUMMARY | 2019-08-19 16:16 | XMS REPORT | Encounter Summary ---
Author Author [facility] Organization [facility] Address Unknown Phone Unavailable Care Team Providers Care Science Job Titles Name Role Phone Carlotta Aguayo MD PCP Unavailable Self, Bradly Ayala MD PCP Encounter Details Care Team Description Date Type Department Carlotta Aguayo MD NO ADDRESS ON FILE Other specified disorder of breast (Prim leatha Dx) 03/22/1998 Outpatient Historical Social History Date Tobacco Use Types Packs/Day Years Used Never Assessed Sex Assigned at Date Recorded Not on file documented as of this encounter Plan of Treatment Not on filedocumented as of this encounter Visit Diagnoses Diagnosis Other specified disorder of breast documented in this encounter
--- OUTSIDE RECORDS SUMMARY | 2019-08-19 16:16 | XMS REPORT | Encounter Summary ---
Author Author [facility] Organization [facility] Address Unknown Phone Unavailable Care Team Providers Care Wire Spinner Name Role Phone Carlotta Aguayo MD PCP Unavailable Self, Bradly Ayala MD PCP Encounter Details Care Team Description Date Type Department Jcarlos Kaur MD 05/10/2003 Outpatient [facility] [address] [address] Social History Date Tobacco Use Types Packs/Day Years Used Never Assessed Sex Assigned at Date Recorded Not on file documented as of this encounter Plan of Treatment Not on filedocumented as of this encounter Visit Diagnoses Not on filedocumented in this encounter
--- OUTSIDE RECORDS SUMMARY | 2019-08-19 16:16 | XMS REPORT | Encounter Summary ---
Author Author [facility] Organization [facility] Address Unknown Phone Unavailable Care Team Providers Care Quill Buncher And Sorter Name Role Phone Carlotta Aguayo MD PCP Unavailable Self, Bradly Ayala MD PCP Encounter Details Care Team Description Date Type Department Carlotta Aguayo MD NO ADDRESS ON FILE Gynecologic examination (Primary Dx) 04/26/1999 Outpatient [facility] Consol idated Historical [address] [address] Social History Date Tobacco Use Types Packs/Day Years Used Never Assessed Sex Assigned at Date Recorded Not on file documented as of this encounter Plan of Treatment Not on filedocumented as of this encounter Visit Diagnoses Diagnosis Gynecologic examination Gynecological examination documented in this encounter
--- OUTSIDE RECORDS SUMMARY | 2019-08-19 16:16 | XMS REPORT | Encounter Summary ---
Author Author [facility] Organization [facility] Address Unknown Phone Unavailable Care Team Providers Care Microsoft Application Developer Name Role Phone Carlotta Aguayo MD PCP Unavailable Self, Bradly Ayala MD PCP Encounter Details Care Team Description Date Type Department Beulah Sumner MD [address] [place] [address] SPRAIN OF KNEE & LEG NOS (Primary Dx) 08/23/2003 Outpatient [facility] Consol idated Historical [facility] [address] [place] [address] Social History Date Tobacco Use Types Packs/Day Years Used Never Assessed Sex Assigned at Date Recorded Not on file documented as of this encounter Plan of Treatment Not on filedocumented as of this encounter Visit Diagnoses Diagnosis Sprain and strain of unspecified site o f knee and leg documented in this encounter
--- OUTSIDE RECORDS SUMMARY | 2019-08-19 16:16 | XMS REPORT | Encounter Summary ---
Author Author [facility] Organization [facility] Address Unknown Phone Unavailable Care Team Providers Care Inter Com Servicer Name Role Phone Carlotta Aguayo MD PCP Unavailable Self, Bradly Ayala MD PCP Encounter Details Care Team Description Date Type Department Chuck Hunter [phone] Screening for malignant neoplasm of the breast (Primary Dx) 09/05/1994 Outpatient Historical Social History Date Tobacco Use Types Packs/Day Years Used Never Assessed Sex Assigned at Date Recorded Not on file documented as of this encounter Plan of Treatment Not on filedocumented as of this encounter Visit Diagnoses Diagnosis Screening for malignant neoplasm of the breast documented in this encounter
--- OUTSIDE RECORDS SUMMARY | 2019-08-19 16:16 | XMS REPORT | Encounter Summary ---
Author Author [facility] Organization [facility] Address Unknown Phone Unavailable Care Team Providers Care Physician In Private Practice Name Role Phone Carlotta Aguayo MD PCP Unavailable Self, Bradly Ayala MD PCP Encounter Details Care Team Description Date Type Department Carlotta Aguayo MD NO ADDRESS ON FILE Other screening mammogram (Primary Dx) 10/06/1998 Outpatient [facility] Consol idated Historical [address] [address] Social History Date Tobacco Use Types Packs/Day Years Used Never Assessed Sex Assigned at Date Recorded Not on file documented as of this encounter Plan of Treatment Not on filedocumented as of this encounter Visit Diagnoses Diagnosis Other screening mammogram documented in this encounter
--- OUTSIDE RECORDS SUMMARY | 2019-08-19 16:16 | XMS REPORT | Encounter Summary ---
Author Author [facility] Organization [facility] Address Unknown Phone Unavailable Care Team Providers Care Counter Maker Name Role Phone Carlotta Aguayo MD PCP Unavailable Self, Bradly Ayala MD PCP Encounter Details Care Team Description Date Type Department America Garcia ARNP [address] [place] [address] Toxic effect venom (Primary Dx) 07/25/[address] [facility] Consol idated Historical [address] [address] Social History Date Tobacco Use Types Packs/Day Years Used Never Assessed Sex Assigned at Date Recorded Not on file documented as of this encounter Plan of Treatment Not on filedocumented as of this encounter Visit Diagnoses Diagnosis Toxic effect venom Toxic effect of venom documented in this encounter
--- OUTSIDE RECORDS SUMMARY | 2019-08-19 16:16 | XMS REPORT | Encounter Summary ---
Author Author [facility] Organization [facility] Address Unknown Phone Unavailable Care Team Providers Care Exercise Planner Name Role Phone Carlotta Aguayo MD PCP Unavailable Self, Bradly Ayala MD PCP Encounter Details Care Team Description Date Type Department Carltota Aguayo MD NO ADDRESS ON FILE Other screening mammogram (Primary Dx) 09/02/[address] [facility] [address] [address] Social History Date Tobacco Use Types Packs/Day Years Used Never Assessed Sex Assigned at Date Recorded Not on file documented as of this encounter Plan of Treatment Not on filedocumented as of this encounter Visit Diagnoses Diagnosis Other screening mammogram documented in this encounter
--- OUTSIDE RECORDS SUMMARY | 2019-08-19 16:16 | XMS REPORT | Encounter Summary ---
Author Author [facility] Organization [facility] Address Unknown Phone Unavailable Care Team Providers Care Inside Barrel Lathe Operator Name Role Phone Carlotta Aguayo MD PCP Unavailable Self, Bradly Ayala MD PCP Encounter Details Care Team Description Date Type Department Rocky Camacho MD [address] [place] [address] DRUG DERMATITIS NOS (Primary Dx) 04/27/2003 Outpatient [facility] Consol idated Historical [facility] [address] [place] [address] Social History Date Tobacco Use Types Packs/Day Years Used Never Assessed Sex Assigned at Date Recorded Not on file documented as of this encounter Plan of Treatment Not on filedocumented as of this encounter Visit Diagnoses Diagnosis Dermatitis due to drugs and medicines t aken internally(693.0) Dermatitis due to drugs and medicines t aken internally documented in this encounter
--- OUTSIDE RECORDS SUMMARY | 2019-08-19 16:16 | XMS REPORT | Encounter Summary ---
Author Author [facility] Organization [facility] Address Unknown Phone Unavailable Care Team Providers Care Grapple Crew Leader Name Role Phone Carlotta Aguayo MD PCP Unavailable Self, Bradly Ayala MD PCP Encounter Details Care Team Description Date Type Department Carlotta Aguayo MD NO ADDRESS ON FILE 07/31/1996 Outpatient Historical Social History Date Tobacco Use Types Packs/Day Years Used Never Assessed Sex Assigned at Date Recorded Not on file documented as of this encounter Plan of Treatment Not on filedocumented as of this encounter Visit Diagnoses Not on filedocumented in this encounter
--- OUTSIDE RECORDS SUMMARY | 2019-08-19 16:16 | XMS REPORT | Encounter Summary ---
Author Author [facility] Organization [facility] Address Unknown Phone Unavailable Care Team Providers Care Explosive Ordnance Disposal Manager Name Role Phone Carlotta Aguayo MD PCP Unavailable Self, Bradly Ayala MD PCP Encounter Details Care Team Description Date Type Department Carlotta Aguayo MD NO ADDRESS ON FILE 09/05/2000 [facility] [address] [place] [address] Social History Date Tobacco Use Types Packs/Day Years Used Never Assessed Sex Assigned at Date Recorded Not on file documented as of this encounter Plan of Treatment Not on filedocumented as of this encounter Visit Diagnoses Not on filedocumented in this encounter
--- OUTSIDE RECORDS SUMMARY | 2019-08-19 16:16 | XMS REPORT | Encounter Summary ---
Author Author [facility] Organization [facility] Address Unknown Phone Unavailable Care Team Providers Care Battery Inspector Name Role Phone Carlotta Aguayo MD PCP Unavailable Self, Bradly Ayala MD PCP Encounter Details Care Team Description Date Type Department Iona Morocho, PAROLE AGENT [address] [place] [address] 04/08/2003 Outpatient [facility] Historical Social History Date Tobacco Use Types Packs/Day Years Used Never Assessed Sex Assigned at Date Recorded Not on file documented as of this encounter Plan of Treatment Not on filedocumented as of this encounter Visit Diagnoses Not on filedocumented in this encounter
--- OUTSIDE RECORDS SUMMARY | 2019-08-19 16:16 | XMS REPORT | Encounter Summary ---
Author Author [facility] Organization [facility] Address Unknown Phone Unavailable Care Team Providers Care Urgent Care Nurse Practitioner Name Role Phone Carlotta Aguayo MD PCP Unavailable Self, Bradly Ayala MD PCP Encounter Details Care Team Description Date Type Department Iona Morocho, MATE CHIEF [address] [place] [address] HYPERTENSION NOS (Primary Dx) 05/24/2003 Outpatient [facility] Consol idated Historical [address] [address] Social History Date Tobacco Use Types Packs/Day Years Used Never Assessed Sex Assigned at Date Recorded Not on file documented as of this encounter Plan of Treatment Not on filedocumented as of this encounter Visit Diagnoses Diagnosis Unspecified essential hypertension documented in this encounter
--- OUTSIDE RECORDS SUMMARY | 2019-08-19 16:16 | XMS REPORT | Encounter Summary ---
Author Author [facility] Organization [facility] Address Unknown Phone Unavailable Care Team Providers Care Survey Project Manager Name Role Phone Carlotta Aguayo MD PCP Unavailable Self, Bradly Ayala MD PCP Encounter Details Care Team Description Date Type Department Carlotta Aguayo MD NO ADDRESS ON FILE Other screening mammogram (Primary Dx) 09/09/1997 Outpatient Historical Social History Date Tobacco Use Types Packs/Day Years Used Never Assessed Sex Assigned at Date Recorded Not on file documented as of this encounter Plan of Treatment Not on filedocumented as of this encounter Visit Diagnoses Diagnosis Other screening mammogram documented in this encounter
--- OUTSIDE RECORDS SUMMARY | 2019-08-19 16:16 | XMS REPORT | Encounter Summary ---
Author Author [facility] Organization [facility] Address Unknown Phone Unavailable Care Team Providers Care Home Housekeeper Name Role Phone Carlotta Aguayo MD PCP Unavailable Self, Bradly Ayala MD PCP Encounter Details Care Team Description Date Type Department Jcarlos Kaur MD HYPERTENSION NOS (Primary Dx) 04/16/2003 Outpatient [facility] Consol idated Historical [address] [address] Social History Date Tobacco Use Types Packs/Day Years Used Never Assessed Sex Assigned at Date Recorded Not on file documented as of this encounter Plan of Treatment Not on filedocumented as of this encounter Visit Diagnoses Diagnosis Unspecified essential hypertension documented in this encounter
--- OUTSIDE RECORDS SUMMARY | 2019-08-19 16:16 | XMS REPORT | Encounter Summary ---
Author Author [facility] Organization [facility] Address Unknown Phone Unavailable Care Team Providers Care Coke Crusher Operator Name Role Phone Carlotta Aguayo MD PCP Unavailable Self, Bradly Ayala MD PCP Encounter Details Care Team Description Date Type Department Carlotta Aguayo MD NO ADDRESS ON FILE SCREENING MAMM-MAILG NEOPL-OTHER (Primar y Dx) 02[facility]13/2002 [facility] Historical [address] [address] Social History Date Tobacco Use Types Packs/Day Years Used Never Assessed Sex Assigned at Date Recorded Not on file documented as of this encounter Plan of Treatment Not on filedocumented as of this encounter Visit Diagnoses Diagnosis Other screening mammogram documented in this encounter
--- OUTSIDE RECORDS SUMMARY | 2019-08-19 16:16 | XMS REPORT | Encounter Summary ---
Author Author [facility] Organization [facility] Address Unknown Phone Unavailable Care Team Providers Care Pipe Threading Machine Operator Name Role Phone Carlotta Aguayo MD PCP Unavailable Self, Bradly Ayala MD PCP Encounter Details Care Team Description Date Type Department Jcarlos Lin MD [address] [place] [address] 08/11/2001 Outpatient [facility] Consol idated Historical [address] [address] Social History Date Tobacco Use Types Packs/Day Years Used Never Assessed Sex Assigned at Date Recorded Not on file documented as of this encounter Plan of Treatment Not on filedocumented as of this encounter Visit Diagnoses Not on filedocumented in this encounter
--- OUTSIDE RECORDS SUMMARY | 2019-08-19 16:16 | XMS REPORT | Encounter Summary ---
Author Author [facility] Organization [facility] Address Unknown Phone Unavailable Care Team Providers Care Manager Local Name Role Phone Carlotta Aguayo MD PCP Unavailable Self, Bradly Ayala MD PCP Encounter Details Care Team Description Date Type Department Carlotta Aguayo MD NO ADDRESS ON FILE 10/07/2001 Outpatient [facility] Consol idated Historical [address] [address] Social History Date Tobacco Use Types Packs/Day Years Used Never Assessed Sex Assigned at Date Recorded Not on file documented as of this encounter Plan of Treatment Not on filedocumented as of this encounter Visit Diagnoses Not on filedocumented in this encounter
--- OUTSIDE RECORDS SUMMARY | 2019-08-19 16:16 | XMS REPORT | Encounter Summary ---
Author Author [facility] Organization [facility] Address Unknown Phone Unavailable Care Team Providers Care Developer Designer Name Role Phone Carlotta Aguayo MD PCP Unavailable Self, Bradly Ayala MD PCP Encounter Details Care Team Description Date Type Department Iona Morocho, SAILMAKER [address] [place] [address] POSTMENOPAUSAL HORMONAL REPLACMT (Primar y Dx) 06/03/2003 Outpatient [facility] Consol idated Historical [address] [address] Social History Date Tobacco Use Types Packs/Day Years Used Never Assessed Sex Assigned at Date Recorded Not on file documented as of this encounter Plan of Treatment Not on filedocumented as of this encounter Visit Diagnoses Diagnosis Need for prophylactic hormone replaceme nt therapy (postmenopausal) documented in this encounter
--- OUTSIDE RECORDS SUMMARY | 2019-08-19 16:16 | XMS REPORT ---
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 M48.062 Mar, Active 871844434 Problem DA (degenerative arthritis) M19.90 14 Jun, 2010 Active 142826969 Problem Gastritis and duodenitis K29.90 July, Ac tive 991861727 Problem Nocturnal dyspnea R06.00 Aug, Active 302121926 Problem Tubular adenoma of colon D12.6 Apr, Ac tive 213843286 Problem CKD (chronic kidney disease) stage 4, GFR 15-29 ml/min N18.4 Oct, Active 703362569 Problem Gastroesophageal reflux disease with esophagitis K21.0 July, Active 773471339 Problem Hiatal hernia K44.9 July, Active 840 46588 Problem Vitamin D deficiency E55.9 Mar, Active 70191304 Problem Acquired hypothyroidism E03.9 Mar, Act mamta 513021843 Problem Renal insufficiency N28.9 15 May, 2017 Active 148621638 Problem Acute left-sided low back pain with left-sided sciatica M54.42 Active 416817172 Problem Iron deficiency anemia D50.9 10 Apr, 2015 Acti ve 74436219 Problem Morbid obesity E66.01 Active 45814 6002 Problem Hyperglycemia R73.9 Oct, Active 803 73665 Problem Hypertension I10 14 Jun, 2010 Active 3834 1003 Problem Mixed hyperlipidemia E78.2 07 May, 2012 Active 236252991 Problem Essential hypertension I10 Active 53165433 Problem Sciatica of right side M54.31 Active 84220978 ALLERGIES No Information ENCOUNTERS Encounter Location Date Diagnosis [facility] [address] [id number] [place] [address] Jun, [facility] [place] [address] [id number] [place] [address] May, [facility] [address] [id number] [place] [address] May, [address] [id number] [place] [address] May, [address] [id number] [place] [address] May, Acute left-sided low back pa in with left-sided sciatica M54.42 [facility] [address] [id number] [place] [address] May, [address] [id number] [address] Jan, [address] [id number], [place] [address] Jan, Acute left-sided low back pa in with left-sided sciatica M54.42 and Right hip pain M25.551 [facility] [address] [id number] [place] [address] Jan, Screening mammogram, encount er for Z12.[address] [id number], [place] [address] Dec, Mixed hyperlipidemia E78.2 ; Hyperglycemia R73.9 ; Iron deficiency anemia D50.9 ; Acquired hypothyroidism E03.9 ; Encounter for immunization Z23 and Essential hypertension I10 [facility] [address] [id number], [place] [address] Dec, Iron deficiency anemia D50.[address] [id number] [place] [address] Dec, Mixed hyperlipidemia E78.2 ; Hyperglycemia R73.9 and Iron deficiency anemia D50.9 [facility] [address] [id number] [place] [address] Nov, [facility] [place] [address] [id number] [address] Sep, [facility] [facility] [id number] [place] [address] Sep, Sciatica of right side M54.3 1 [facility] [address] [id number] [place] [address] Sep, [facility] [place] [address] [id number] [place] [address] Jun, Mixed hyperlipidemia E78.2 ; Hyperglycemia R73.9 and CKD (chronic kidney disease) stage 4, GFR 15-29 ml/min N18.4 [facility] [place] [address] [id number] [place] [address] Jun, Hyperglycemia, unspecified R 73.9 ; Mixed hyperlipidemia E78.2 ; Prediabetes R73.03 and Vitamin D deficiency, unspecified E55.9 [facility] [address] [facility] [id number] [address] [place] [address] Jun, [facility] [address] [facility] [id number] [address] [place] [address] May, Mixed hyperlipidemia E78.2 ; Hyperglycemia, unspecified R73.9 ; Prediabetes R73.03 ; Vitamin D deficiency, unspecified E55.9 and Acquired hypothyroidism E03.9 [facility] [address] [id number] [place] [address] May, [facility] [address] [facility] [id number] [address] [place] [address] Mar, [facility] [address] [facility] [id number] [address] [place] [address] Mar, [facility] [address] [facility] [id number] [address] [place] [address] Jan, [facility] [address] [facility] [id number] [address] [place] [address] Jan, [facility] [address] [facility] [id number] [address] [place] [address] Nov, [facility] [address] [facility] [id number] [address] [place] [phone] July, IMMUNIZATIONS No Known Immunizations SOCIAL HISTORY Never Assessed REASON FOR VISIT Refill request PLAN OF CARE VITAL SIGNS MEDICATIONS Medication Instructions Dosage Frequency Start Date End Date Duration S kira Dicyclomine HCl 20 MG Orally 4 times a day 1 tablet 6h May, 30 days Active RESULTS No Results PROCEDURES No Known procedures INSTRUCTIONS MEDICATIONS ADMINISTERED No Known Medications MEDICAL (GENERAL) HISTORY Type Description Date Medical History Mixed hyperlipidemia Medical History Hypertension Medical History Renal insufficiency Medical History Acquired hypothyroidism Medical History Vitamin D deficiency Medical History Iron deficiency anemia Medical History Hyperglycemia Medical History Gastroesophageal reflux disease with eso phagitis Medical History Hiatal hernia Medical History Tubular adenoma of colon Medical History CKD (chronic kidney disease) stage 4, GF R 15-29 ml/min Medical History Gastritis and duodenitis Medical History Nocturnal dyspnea Medical History Spinal stenosis of lumbar region with ne urogenic claudication Medical History DA (degenerative arthritis) Surgical History colonoscopy Surgical History tubal ligation
--- OUTSIDE RECORDS SUMMARY | 2019-08-19 16:16 | XMS REPORT | Encounter Summary ---
Author Author [facility] Organization [facility] Address Unknown Phone Unavailable Care Team Providers Care Shipping Technician Name Role Phone Carlotta Aguayo MD PCP Unavailable Self, Bradly Ayaal MD PCP Encounter Details Care Team Description Date Type Department Diffus cystic mastopathy (Pr imary Dx) 04/17/1993 Outpatient Historical Social History Date Tobacco Use Types Packs/Day Years Used Never Assessed Sex Assigned at Date Recorded Not on file documented as of this encounter Plan of Treatment Not on filedocumented as of this encounter Visit Diagnoses Diagnosis Diffus cystic mastopathy Diffuse cystic mastopathy documented in this encounter
--- OUTSIDE RECORDS SUMMARY | 2019-08-19 16:16 | XMS REPORT | Encounter Summary ---
Author Author [facility] Organization [facility] Address Unknown Phone Unavailable Care Team Providers Care Owner/Operator Name Role Phone Carlotta Aguayo MD PCP Unavailable Self, Bradly Ayala MD PCP Encounter Details Care Team Description Date Type Department Carlotta Aguayo MD NO ADDRESS ON FILE VIRAL WARTS NOS (Primary Dx) 05/17/2003 Outpatient [facility] Consol idated Historical [address] [address] Social History Date Tobacco Use Types Packs/Day Years Used Never Assessed Sex Assigned at Date Recorded Not on file documented as of this encounter Plan of Treatment Not on filedocumented as of this encounter Visit Diagnoses Diagnosis Viral warts, unspecified documented in this encounter
--- OUTSIDE RECORDS SUMMARY | 2019-08-19 16:16 | XMS REPORT ---
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 M48.062 Mar, Active 115422282 Problem DA (degenerative arthritis) M19.90 14 Jun, 2010 Active 786581328 Problem Gastritis and duodenitis K29.90 July, Ac tive 486201615 Problem Nocturnal dyspnea R06.00 Aug, Active 150834529 Problem Tubular adenoma of colon D12.6 Apr, Ac tive 845963697 Problem CKD (chronic kidney disease) stage 4, GFR 15-29 ml/min N18.4 Oct, Active 191171476 Problem Gastroesophageal reflux disease with esophagitis K21.0 July, Active 079790105 Problem Hiatal hernia K44.9 July, Active 840 98664 Problem Vitamin D deficiency E55.9 Mar, Active 50328856 Problem Acquired hypothyroidism E03.9 Mar, Act mamta 881900802 Problem Renal insufficiency N28.9 15 May, 2017 Active 624411216 Problem Acute left-sided low back pain with left-sided sciatica M54.42 Active 910914931 Problem Iron deficiency anemia D50.9 10 Apr, 2015 Acti ve 04374209 Problem Morbid obesity E66.01 Active 74256 6002 Problem Hyperglycemia R73.9 Oct, Active 803 56502 Problem Hypertension I10 14 Jun, 2010 Active 3834 1003 Problem Mixed hyperlipidemia E78.2 May, Active 649678776 Problem Essential hypertension I10 Active 75293971 Problem Sciatica of right side M54.31 Active 50433196 ALLERGIES No Information ENCOUNTERS Encounter Location Date Diagnosis [id number] [id number] [place] [address] Dec, [address] [id number], [place] [address] July, [address] [id number], [place] [address] Jun, Encounter for Medicare ann l wellness exam Z00.00 ; Hypertension I10 ; CKD (chronic kidney disease) stage 4, GFR 15-29 ml/min N18.4 ; Mixed hyperlipidemia E78.2 ; Renal insufficiency N28.9 ; Vitamin D deficiency E55.9 ; Gastroesophageal reflux disease with esophagitis K21.0 ; Hiatal hernia K44.9 ; Tubular adenoma of colon D12.6 ; Gastritis and duodenitis K29.90 ; Nocturnal dyspnea R06.00 ; DA (degenerative arthritis) M19.90 ; Spinal 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 ; Morbid obesity E66.01 and Acquired hypothyroidism E03.9 [facility] [address] [facility] [id number] [address] [place] [address] Jun, [address] [id number], [place] [address] Jun, Acquired hypothyroidism E03. 9 ; Hyperglycemia R73.9 and Iron deficiency anemia D50.[address] [id number], [place] [address] 30 May, [address] [id number], [place] [address] May, [address] [id number], [place] [address] May, [address] [id number], [place] [address] 14 May, 2019 Acute left-sided low back pa in with left-sided sciatica M54.[address] [id number], [place] [address] 10 May, [address] [id number] [place] [address] Jan, [facility] [address] [id number], [place] [address] Jan, Acute left-sided low back pa in with left-sided sciatica M54.42 and Right hip pain M25.551 [facility] [address] [id number], [place] [address] Jan, Screening mammogram, encount er for Z12.31 [facility] [address] [id number], [place] [address] Dec, Mixed hyperlipidemia E78.2 ; Hyperglycemia R73.9 ; Iron deficiency anemia D50.9 ; Acquired hypothyroidism E03.9 ; Encounter for immunization Z23 and Essential hypertension I10 [facility] [address] [id number], [place] [address] Dec, Iron deficiency anemia D50.9 [facility] [address] [id number], [place] [address] Dec, Mixed hyperlipidemia E78.2 ; Hyperglycemia R73.9 and Iron deficiency anemia D50.9 [facility] [address] [id number] [place] [address] Nov, [facility] [address] [id number] [place] [address] Sep, [facility] [address] [facility] [address] [id number] [place] [address] Sep, Sciatica of right side M54.3 1 [facility] [address] [id number] [place] [address] Sep, [facility] [address] [id number] [place] [address] Jun, Mixed hyperlipidemia E78.2 ; Hyperglycemia R73.9 and CKD (chronic kidney disease) stage 4, GFR 15-29 ml/min N18.[address] [id number] [place] [address] Jun, Hyperglycemia, unspecified R 73.9 ; Mixed hyperlipidemia E78.2 ; Prediabetes R73.03 and Vitamin D deficiency, unspecified E55.9 [place] [address] [facility] [id number] [address] [place] [address] Jun, [facility] [address] [facility] [id number] [address] [place] [address] May, Mixed hyperlipidemia E78.2 ; Hyperglycemia, unspecified R73.9 ; Prediabetes R73.03 ; Vitamin D deficiency, unspecified E55.9 and Acquired hypothyroidism E03.[address] [id number] [place] [address] May, [place] [address] [facility] [id number] [address] [place] [address] Mar, [place] [address] [facility] [id number] [address] [place] [address] Mar, [place] [address] [facility] [id number] [address] [place] [address] Jan, [place] [address] [facility] [id number] [address] [place] [address] Jan, [place] [address] [facility] [id number] [address] [place] [address] Nov, [place] [address] [facility] [id number] [address] [place] [address] July, IMMUNIZATIONS No Known Immunizations SOCIAL HISTORY Never Assessed REASON FOR VISIT Lab (walk-in) PLAN OF CARE VITAL SIGNS MEDICATIONS Unknown Medications RESULTS No Results PROCEDURES Procedure Date Ordered Result Body Site VENIPUNCT, ROUTINE* July 01, 2018 Hemoglobin Test Send Out 0 dollar July 01, 2018 LAB NOT BILLED BY [facility] July 01, 2018 INSTRUCTIONS MEDICATIONS ADMINISTERED No Known Medications MEDICAL [...] Medical History DA (degenerative arthritis) Surgical History colonoscopy-05/2017-pt to repeat in 3 yr s Surgical History tubal ligation Surgical History EGD-07/2017
--- OUTSIDE RECORDS SUMMARY | 2019-08-19 16:16 | XMS REPORT | Encounter Summary ---
Author Author [facility] Organization [facility] Address Unknown Phone Unavailable Care Team Providers Care Senior Electrical Project Manager Name Role Phone Carlotta Aguayo MD PCP Unavailable Self, Bradly Ayala MD PCP Encounter Details Care Team Description Date Type Department Carlotta Aguayo MD NO ADDRESS ON FILE Esophageal reflux (Primary Dx) 09/04/2000 Outpatient [facility] Consol idated [address] [address] Social History Date Tobacco Use Types Packs/Day Years Used Never Assessed Sex Assigned at Date Recorded Not on file documented as of this encounter Plan of Treatment Not on filedocumented as of this encounter Visit Diagnoses Diagnosis Esophageal reflux documented in this encounter
--- OUTSIDE RECORDS SUMMARY | 2019-08-19 16:16 | XMS REPORT | Encounter Summary ---
Author Author [facility] Organization [facility] Address Unknown Phone Unavailable Care Team Providers Care Manager Ethics Name Role Phone Carlotta Aguayo MD PCP Unavailable Self, Bradly Ayala MD PCP Encounter Details Care Team Description Date Type Department Carlotta Aguayo MD NO ADDRESS ON FILE Screening for malignant neoplasm of the breast (Primary Dx) 09/03/1995 Outpatient Historical Social History Date Tobacco Use Types Packs/Day Years Used Never Assessed Sex Assigned at Date Recorded Not on file documented as of this encounter Plan of Treatment Not on filedocumented as of this encounter Visit Diagnoses Diagnosis Screening for malignant neoplasm of the breast documented in this encounter
--- OUTSIDE RECORDS SUMMARY | 2019-08-19 16:16 | XMS REPORT | Encounter Summary ---
Author Author [facility] Organization [facility] Address Unknown Phone Unavailable Care Team Providers Care Signal Repairer Name Role Phone Carlotta Aguayo MD PCP Unavailable Self, Bradly Ayala MD PCP Encounter Details Care Team Description Date Type Department Mastodynia (Primary Dx) 04/13/1992 Outpatient Historical Social History Date Tobacco Use Types Packs/Day Years Used Never Assessed Sex Assigned at Date Recorded Not on file documented as of this encounter Plan of Treatment Not on filedocumented as of this encounter Visit Diagnoses Diagnosis Mastodynia documented in this encounter
--- OUTSIDE RECORDS SUMMARY | 2019-08-19 16:16 | XMS REPORT | Encounter Summary ---
Author Author [facility] Organization [facility] Address Unknown Phone Unavailable Care Team Providers Care Reproduction Artist Name Role Phone Carlotta Aguayo MD PCP Unavailable Self, Bradly Ayala MD PCP Encounter Details Care Team Description Date Type Department America Garcia ARNP [address] [place] [address] Routine medical exam (Primary Dx) 07/25/2000 Outpatient [facility] [address] [address] Social History Date Tobacco Use Types Packs/Day Years Used Never Assessed Sex Assigned at Date Recorded Not on file documented as of this encounter Plan of Treatment Not on filedocumented as of this encounter Visit Diagnoses Diagnosis Routine medical exam Routine general medical examination at a health care facility documented in this encounter
--- OUTSIDE RECORDS SUMMARY | 2019-08-19 16:16 | XMS REPORT | Encounter Summary ---
Author Author [facility] Organization [facility] Address Unknown Phone Unavailable Care Team Providers Care Oracle Technical Developer Name Role Phone Carlotta Aguayo MD PCP Unavailable Self, Bradly Ayala MD PCP Encounter Details Care Team Description Date Type Department Carlotta Aguayo MD NO ADDRESS ON FILE [facility]/1999 [facility] [address] [place] [address] Social History Date Tobacco Use Types Packs/Day Years Used Never Assessed Sex Assigned at Date Recorded Not on file documented as of this encounter Plan of Treatment Not on filedocumented as of this encounter Visit Diagnoses Not on filedocumented in this encounter
--- OUTSIDE RECORDS SUMMARY | 2019-08-19 16:16 | XMS REPORT | Encounter Summary ---
Author Author [facility] Organization [facility] Address Unknown Phone Unavailable Care Team Providers Care Cigarette Stamper Name Role Phone Carlotta Aguayo MD PCP Unavailable Self, Bradly Ayala MD PCP Encounter Details Care Team Description Date Type Department Carlotta Aguayo MD NO ADDRESS ON FILE SHORTNESS OF BREATH (Primary Dx) 06/03/2003 [facility] [address] [address] Social History Date Tobacco Use Types Packs/Day Years Used Never Assessed Sex Assigned at Date Recorded Not on file documented as of this encounter Plan of Treatment Not on filedocumented as of this encounter Visit Diagnoses Diagnosis Shortness of breath documented in this encounter
--- OUTSIDE RECORDS SUMMARY | 2019-08-19 16:17 | XMS REPORT | Continuity of Care Document ---
Author Organization Unknown Address Unknown Phone Unavailable Allergies Active Description Code Type Severity Reaction Onset Reported/Identified Relationship to Patient Clinical Status Yes allopurinol [id number] Drug Aller gy Unknown N/A 12/14/2013 Yes HORSE SERUM HORSE SERUM Unknown N/A 12/14/2013 Medications There is no data. Problems Date Dx Coded Attending Type Code Diagnosis Diagnosed By 12/14/2013 TIFFANI DE LA GARZA MD Ot 721. 3 12/14/2013 TIFFANI DE LA GARZA MD, Ot 722. 52 12/14/2013 TIFFANI DE LA GARZA MD, Ot V58. 69 02/19/2014 TIFFANI DE LA GARZA MD, Ot 721. 3 02/19/2014 TIFFANI DE LA GARZA MD, Ot 722. 52 02/19/2014 TIFFANI DE LA GARZA MD, Ot V58. 69 09/17/2014 TIFFANI DE LA GARZA MD, Ot 722. 52 10/29/2014 TIFFANI DE LA GARZA MD, Ot 721. 3 10/29/2014 TIFFANI DE LA GARZA MD, Ot 722. 52 10/29/2014 TIFFANI DE LA GARZA MD, Ot V58. 69 Procedures There is no data. Results Test Result Range TSH - 07/01/18 09:12 TSH 4.43 mIU/L 0.40-4.50 VITAMIN D, 25-H - 07/01/18 09:12 VITAMIN D,25-OH,TOTAL,IA 47 ng/mL 30-10 0 A1C - 07/01/18 09:12 HEMOGLOBIN A1c 5.7 % of total Hgb <5.7 CBC - 01/19/19 08:32 WHITE BLOOD CELL COUNT 4.6 Thousand/uL 3 .8-10.8 RED BLOOD CELL COUNT 4.87 Million/uL 3.8 0-5.10 HEMOGLOBIN 15.3 g/dL 11.7-15.5 HEMATOCRIT 45.8 % 35.0-45.0 MCV 94.0 fL 80.0-100.0 MCH 31.4 pg 27.0-33.0 MCHC 33.4 g/dL 32.0-36.0 RDW 13.3 % 11.0-15.0 PLATELET COUNT 200 Thousand/uL 140-400 MPV 11.2 fL 7.5-12.5 ABSOLUTE NEUTROPHILS 2801 cells/uL 1500- 7800 ABSOLUTE LYMPHOCYTES 1113 cells/uL 850-3 900 ABSOLUTE MONOCYTES 534 cells/uL 200-950 ABSOLUTE EOSINOPHILS 101 cells/uL 15-500 ABSOLUTE BASOPHILS 51 cells/uL 0-200 NEUTROPHILS 60.9 % NRG LYMPHOCYTES 24.2 % NRG MONOCYTES 11.6 % NRG EOSINOPHILS 2.2 % NRG BASOPHILS 1.1 % NRG A1C - 01/19/19 08:32 HEMOGLOBIN A1c 5.6 % of total Hgb <5.7 TSH w/ FREE T4 - 07/21/19 07:54 TSH 4.55 mIU/L 0.40-4.50 T4, FREE 1.4 ng/dL 0.8-1.8 CMP - 07/21/19 07:54 GLUCOSE 110 mg/dL 65-99 UREA NITROGEN (BUN) 26 mg/dL 7-25 CREATININE 1.65 mg/dL 0.60-0.93 eGFR NON-AFR. FIJIAN 29 mL/min/1.73m2 > OR = 60 eGFR 34 mL/min/1.73m2 > OR = 60 BUN/CREATININE RATIO 16 (calc) 6-22 SODIUM 144 mmol/L 135-146 POTASSIUM 3.7 mmol/L 3.5-5.3 CHLORIDE 108 mmol/L 98-110 CARBON DIOXIDE 23 mmol/L 20-32 CALCIUM 9.5 mg/dL 8.6-10.4 PROTEIN, TOTAL 6.8 g/dL 6.1-8.1 ALBUMIN 4.3 g/dL 3.6-5.1 GLOBULIN 2.5 g/dL (calc) 1.9-3.7 ALBUMIN/GLOBULIN RATIO 1.7 (calc) 1.0-2. 5 BILIRUBIN, TOTAL 0.4 mg/dL 0.2-1.2 ALKALINE PHOSPHATASE 52 U/L 37-153 AST 18 U/L 10-35 ALT 21 U/L 6-29 CBC - 07/21/19 07:54 WHITE BLOOD CELL COUNT 5.8 Thousand/uL 3 .8-10.8 RED BLOOD CELL COUNT 4.99 Million/uL 3.8 0-5.10 HEMOGLOBIN 15.4 g/dL 11.7-15.5 HEMATOCRIT 47.6 % 35.0-45.0 MCV 95.4 fL 80.0-100.0 MCH 30.9 pg 27.0-33.0 MCHC 32.4 g/dL 32.0-36.0 RDW 13.5 % 11.0-15.0 PLATELET COUNT 212 Thousand/uL 140-400 MPV 11.6 fL 7.5-12.5 ABSOLUTE NEUTROPHILS 3642 cells/uL 1500- 7800 ABSOLUTE LYMPHOCYTES 1380 cells/uL 850-3 900 ABSOLUTE MONOCYTES 615 cells/uL 200-950 ABSOLUTE EOSINOPHILS 110 cells/uL 15-500 ABSOLUTE BASOPHILS 52 cells/uL 0-200 NEUTROPHILS 62.8 % NRG LYMPHOCYTES 23.8 % NRG MONOCYTES 10.6 % NRG EOSINOPHILS 1.9 % NRG BASOPHILS 0.9 % NRG Encounters ACCT No. Visit Date/Time Discharge Status Pt. Type Provider Facility Loc./Unit Complaint [id number] 07/21/2019 07:45:00 07/21/2019 23:59: 59 CLS Outpatient SELF, MODESTA Shabazz [facility] [id number] 07/21/2019 07:45:00 Document Registration [id number] 01/19/2019 08:15:00 Document Registration [id number] 07/01/2018 09:45:00 Document Registration [id number] 10/29/2014 08:02:00 015 10:06:00 DIS Outpatient TIFFANI DE LA GARZA MD [facility] CARD [id number] 09/17/2014 06:52:00 015 07:47:00 DIS Outpatient TIFFANI DE LA GARZA MD [facility] CARD [id number] 02/19/2014 06:37:00 014 07:41:00 DIS Outpatient TIFFANI DE LA GARZA MD [facility] CARD [id number] 12/14/2013 13:08:00 014 14:17:00 DIS Outpatient TIFFANI DE LA GARZA MD [facility] CARD [id number] 10/30/2013 08:28:00 014 09:39:00 DIS Outpatient
== END 2019-08-19 14:45 | disposition home or self-care (01) ==
LOC: EDUNIT# 13:09 → ER FS 13:11
DX: S09.90XA Unspecified injury of head, initial encounter (principal); S92.351A Displaced fracture of fifth metatarsal bone, right foot, initial encounter for closed fracture; S00.83XA Contusion of other part of head, initial encounter; S80.212A Abrasion, left knee, initial encounter; Z23 Encounter for immunization; W18.39XA Other fall on same level, initial encounter; W22.8XXA Striking against or struck by other objects, initial encounter; Y92.512 Supermarket, store or market as the place of occurrence of the external cause
CPT/HCPCS: 70450; 73610; 73630; 90715

== ENCOUNTER → 2019-09-08 | Outpatient (CLI) | payer MEDICARE ==
[~2019-09-08] MED LIST: HYDR-83 PO; ONDA4TAB11 PO
--- NOTE | 2019-09-08 10:43 | Diagnostic Imaging Report ---
INDICATION: Nondisplaced fracture of the 5th metatarsal bone. COMPARISON: 08/19/2019. TECHNIQUE: Three radiographs of the right foot dated 09/08/2019. FINDINGS: The previously noted lucency involving the base of the 5th metatarsal is again noted though not as well visualized. Alignment remains stable. No additional new fracture or dislocation. No destructive osseous process. The Lisfranc joint is well aligned. Scattered osseous degenerative changes, greatest involving the 1st ray. Small plantar calcaneal enthesophytes. IMPRESSION: Suspected nondisplaced fracture involving the base of the 5th metatarsal is again suggested and not significantly changed. Recommend continued radiographic followup to ensure healing. No new acute osseous abnormality with scattered osseous degenerative changes. Dictated by: Dictated on workstation # [id number]
== END ==
LOC: RAD FS 09:21
PROVIDERS: ATTEND Nurse Practitioner
DX: S92.354A Nondisplaced fracture of fifth metatarsal bone, right foot, initial encounter for closed fracture (principal)
CPT/HCPCS: 73630

== ENCOUNTER → 2022-07-05 | Outpatient (CLI) | payer MEDICARE ==
[~2022-07-05] MED LIST changes: +ACHD5005 PO; -HYDR-83 PO
--- NOTE | 2022-07-05 15:23 | Diagnostic Imaging Report ---
INDICATION: Acute onset knee pain. Three views of the right knee performed. 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 There was no opaque loose body and no findings of a joint effusion. No fracture or bony destructive process. IMPRESSION: Arthritic changes greatest at the patellofemoral compartment with no acute appearing bony pathology at 3 view right knee. Dictated by: Dictated on workstation # [id number]
== END ==
LOC: RAD FS 10:07
PROVIDERS: ATTEND Family Medicine
DX: M17.11 Unilateral primary osteoarthritis, right knee (principal)
CPT/HCPCS: 73562